=== PATIENT | female | born 1975 | race Hispanic/Latino ===

== ENCOUNTER 2018-07-15 13:37 | Emergency (ER) | payer OTHER ==
[2018-07-15] MEDS ORDERED: MORPHINE 4 MG/ML SYR ONE (14:20)
[2018-07-15] MEDS ORDERED: ONDANSETRON 4 MG/2 ML VIAL ONE (14:20)
[2018-07-15] MEDS ORDERED: NA CHLORIDE 0.9% 1,000 ML ONE (14:20)
[2018-07-15 14:30] LABS: Absolute Lymphocytes (CBC) 1.7 K/uL (0.7-4.9); Absolute Monocytes 0.6 K/uL (0.1-1.3); Absolute Neutrophil 7.3 K/uL (1.8-8.0); Basophils % 0.6 % (0-1.3); Eosinophils % 1.2 % (0-4.4); Hematocrit 40.8 % (36.0-45.0); Lymphocytes % 17.9 % (15.3-44.8); MCH 28.6 pg (27.0-35.0); MCV 83.8 fL (80-100); MPV 8.7 fL (7.6-11.3); RBC Red Blood Cell Count 4.86 M/uL (3.86-4.86)
[2018-07-15 14:33] LABS: Urine Blood TRACE (NEG); Urine Glucose NEGATIVE (NEG); Urine Protein NEGATIVE (NEG); Urine Specific Gravity 1.025 (1.005-1.030); Urine pH 5.5 (5.0-7.0)
[2018-07-15 15:05] LABS: ALT/SGPT 99 U/L (12-78); AST/SGOT 52 U/L (15-37); Albumin 3.8 g/dL (3.4-5.0); Alkaline Phosphatase 143 U/L (45-117); BUN Blood Urea Nitrogen 26 mg/dL (7-18); Bicarbonate 28 mmol/L (21-32); Bilirubin Direct 0.2 mg/dL (0-0.2); Bilirubin Total 0.5 mg/dL (0.2-1.0); Glucose Level 92 mg/dL (74-106); Lipase 222 U/L (73-393); Potassium 3.4 mmol/L (3.5-5.1); Protein, Total 8.6 g/dL (6.4-8.2); Sodium Level 137 mmol/L (136-145); Troponin (Emerg Dept Use Only) < 0.02 ng/mL (0.0-0.045)
--- NOTE | 2018-07-15 15:13 | EKG ---
Test Date: 2018-07-15 Test Time: 14:12:11 Family Services Specialist: NEO MEASUREMENT RESULTS: Intervals: Rate: 62 OR: 172 QRSD: 100 QT: 516 QTc: 523 [place]: P: 25 OR: 172 QRS: 12 T: 20 INTERPRETIVE STATEMENTS: Normal sinus rhythm with sinus arrhythmia Increased R/S ratio in V1, consider early transition or posterior infarct Prolonged QT Abnormal ECG Compared to ECG 03/25/2017 13:36:30 Myocardial infarct finding now present Electronically Signed On 07-15-18 15:12:50 CDT by Florentino Houston
--- NOTE | 2018-07-15 16:01 | RAD REPORT ---
EXAM DESCRIPTION: CT - Abdomen Pelvis W Contrast - 07/15/2018 3:53 pm CLINICAL HISTORY: Abdominal pain/epigastric pain COMPARISON: December 2016 TECHNIQUE: Computed axial tomography of the abdomen pelvis was obtained. 100 cc Isovue-300 was admin istered intravenously. Oral contrast was not requested which limits evaluation of bowel. All CT scans are performed using dose optimization technique as appropriate and may include automated exposure control or mA/KV adjustment according to patient size. FINDINGS: A gastric band is in place. The gallbladder has been removed The liver, spleen, pancreas, adrenal and kidneys appear unremarkable. There is no evidence of diverticulitis. The appendix is normal. A hysterectomy has been performed. A small umbilical hernia present. IMPRESSION: No acute abnormality is displayed.
--- NOTE | 2018-07-15 16:23 | ER ---
Nurse's Notes [facility] Name: Vanessa Gonzalez Age: 42 yrs Sex: Female : 1975 Arrival Date: 07/15/2018 Time: 13:41 Bed 16 Private MD: Diagnosis: Upper abdominal pain, unspecified Presentation: 07/15 13:41 Presenting complaint: Patient states: i have this pain in my abd the day before hj yesterday, (epigastric area), tender to touch on my L upper abd; i feels like abd is bloated; reports nausea, denies vomiting; reports light headedness; denies fever and diarrhea;. Transition of care: patient was not received from another setting of care. Onset of symptoms was July 14, 2018. Risk Assessment: Do you want to hurt yourself or someone else? Patient reports no desire to harm self or others. Initial Sepsis Screen: Does the patient meet any 2 criteria? No. Patient's initial sepsis screen is negative. Does the patient have a suspected source of infection? No. Patient's initial sepsis screen is negative. Care prior to arrival: None. 13:41 Method Of Arrival: Ambulatory 13:41 Acuity: ANDREW 3 hj Triage Assessment: 13:46 General: Appears in no apparent distress. uncomfortable, Behavior is calm, cooperative, hj appropriate for age. Pain: Complains of pain in abdomen Pain currently is 8 out of 10 on a pain scale. GI: Reports upper abdominal pain, nausea. 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 - Social history:: Smoking status: Patient/guardian denies using tobacco, Patient/guardian denies using alcohol. - Ebola Screening: : Patient negative for fever greater than or equal to 101.5 degrees Fahrenheit, and additional compatible Ebola Virus Disease symptoms Patient denies exposure to infectious person Patient denies travel to an Ebola-affected area in the 21 days before illness onset. Screenin:46 Abuse screen: Denies threats or abuse. Denies injuries from another. Nutritional hj screening: No deficits noted. Tuberculosis screening: No symptoms or risk factors identified. Fall Risk None identified. Assessment: 13:47 GI: Bowel sounds present X 4 quads. Abd is soft Abdomen is tender to palpation. hj 13:50 General: Appears in no apparent distress. comfortable, obese, Behavior is cooperative, bp appropriate for age, anxious. Pain: Complains of pain in abdomen. Neuro: Level of Consciousness is awake, alert, obeys commands, Oriented to person, place, time, situation, Appropriate for age. Cardiovascular: No deficits noted. Respiratory: Airway is patent Respiratory effort is even, unlabored, Respiratory pattern is regular, symmetrical. GI: Abdomen is obese, Bowel sounds present X 4 quads. Abd is soft X 4 quads Abdomen is tender to palpation X 4 quads. : No signs and/or symptoms were reported regarding the genitourinary system. EENT: No deficits noted. Derm: No deficits noted. Musculoskeletal: Circulation, motion, and sensation intact. Range of motion: intact in all extremities. 14:15 Reassessment: PT TO U/S WITH QUALITY ASSURANCE SUPERVISOR CHASSIS. bp 15:42 Reassessment: PT TO CT WITH QUALITY ASSURANCE SUPERVISOR CHASSIS. bp 16:01 Reassessment: PT RETURNED FROM CT. bp 16:42 Reassessment: PT D/C HOME AMBULATORY WITH FAMILY, DX WITH UNSPECIFIED ABDOMINAL PAIN. bp Vital Signs: 13:47 BP 125 / 85; Pulse 75; Resp 18; Temp 97.7(TE); Pulse Ox 98% on R/A; Weight 101.15 kg; Height 5 ft. 2 in. (157.48 cm); Pain 8/10; 15:16 BP 124 / 79; Pulse 60; Resp 17; Pulse Ox 99% on R/A; mh5 15:42 BP 124 / 75; Pulse 63; Resp 14; Pulse Ox 100% ; bp 16:04 BP 125 / 82; Pulse 55; Resp 14; Pulse Ox 100% ; bp 13:47 Body Mass Index 40.79 (101.15 kg, 157.48 cm) hj ED Course: 13:41 Patient arrived in ED. hj 13:43 Triage completed. hj 13:47 Arm band placed on left wrist. hj 13:47 Patient has correct armband on for positive identification. Placed in gown. Bed in low hj position. Call light in reach. Side rails up X 1. 13:48 Lizzette Parry FNP-C is [facility]. kb 13:48 Eliot Hair MD is Attending Physician. kb 13:50 Chris Jones, MARIA R is Primary Nurse. bp 14:00 Inserted saline lock: 20 gauge in left antecubital area, using aseptic technique. Blood bp collected. 14:21 Urine collected: clean catch specimen, clear. 5 14:22 Urine --Ancillary (enter results) Sent. mh5 14:22 Urine Dipstick--Ancillary (enter results) Sent. 5 14:24 EKG done, by scada technician. reviewed by Lizzette SAWANT. sm3 15:53 CT Abd/Pelvis - W/Contrast In Process Unspecified. EDMS 16:43 No provider procedures requiring assistance completed. Patient did not have IV access bp during this emergency room visit. Administered Medications: 14:18 Drug: NS 0.9% 1000 ml Route: IV; Rate: 1000 ml; Site: left antecubital; bp 16:46 Follow up: IV Status: Completed infusion; IV Intake: 1000ml bp 14:19 Drug: Zofran 4 mg Route: IVP; Site: left antecubital; bp 15:41 Follow up: Response: Nausea is decreased bp 14:19 Drug: morphine 4 mg Route: IVP; Site: left antecubital; bp 15:41 Follow up: Response: No adverse reaction; Pain is decreased bp 16:30 Drug: Bentyl 20 mg Route: PO; bp 16:41 Follow up: Response: Medication administered at discharge. bp 16:30 Drug: ProTONIX 40 mg Route: IVP; Site: left antecubital; bp 16:42 Follow up: Response: Medication administered at discharge. bp Intake: 16:46 IV: 1000ml; Total: 1000ml. bp Outcome: 16:22 Discharge ordered by . kb 16:44 Discharged to home ambulatory, with family. bp 16:44 Condition: stable 16:44 Discharge instructions given to patient, Instructed on discharge instructions, follow up and referral plans. medication usage, Demonstrated understanding of instructions, follow-up care, medications, Prescriptions given X 2. 16:57 Patient left the ED. bp Signatures: Dispatcher [employer] EDMS Lizzette Parry, SAVANA GRIFFITHSP-Kyler Beasley, RN RN Halima Abdul 5 Chris Jones, MARIA R RN Kaitlin Fish 3 Corrections: (The following items were deleted from the chart) 13:50 13:47 Pulse 75bpm; Resp 18bpm; Pulse Ox 98% RA; Temp 97.7F Temporal; 101.15 kg; Height hj 5 ft. 2 in.; BMI: 40.7; Pain 8/10; hj
--- NOTE | 2018-07-15 16:23 | EDPHYS ---
Physician Documentation [facility] Name: Vanessa Gonzalez Age: 42 yrs Sex: Female : 1975 Arrival Date: 07/15/2018 Time: 13:41 Bed 16 Private MD: ED Physician Eliot Hair HPI: 07/15 14:25 This 42 yrs old Female presents to ER via Ambulatory with complaints of kb Abdominal Pain, Nausea. 14:25 The patient presents with abdominal pain in the epigastric area, in the upper abdomen. kb Onset: The symptoms/episode began/occurred 2 day(s) ago. The symptoms do not radiate. Associated signs and symptoms: Pertinent positives: nausea, Pertinent negatives: fever, vomiting. The symptoms are described as constant. Modifying factors: The symptoms are alleviated by nothing, the symptoms are aggravated by pressure. Severity of pain: At its worst the pain was moderate in the emergency department the pain is unchanged. The patient has experienced similar episodes in the past. The patient has been recently seen by a physician: Dr. Macias in the office, with similar presenting complaints, MRI and labs ordered. Not done yet. 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 - Social history:: Smoking status: Patient/guardian denies using tobacco, Patient/guardian denies using alcohol. - Ebola Screening: : Patient negative for fever greater than or equal to 101.5 degrees Fahrenheit, and additional compatible Ebola Virus Disease symptoms Patient denies exposure to infectious person Patient denies travel to an Ebola-affected area in the 21 days before illness onset. ROS: 14:25 Constitutional: Negative for fever, chills, and weight loss, Neck: Negative for injury, kb pain, and swelling, Cardiovascular: Negative for chest pain, palpitations, and edema, Respiratory: Negative for shortness of breath, cough, wheezing, and pleuritic chest pain, Back: Negative for injury and pain, : Negative for injury, bleeding, discharge, and swelling, MS/Extremity: Negative for injury and deformity, Skin: Negative for injury, rash, and discoloration, Neuro: Negative for headache, weakness, numbness, tingling, and seizure. 14:25 Abdomen/GI: Positive for abdominal pain, nausea. Exam: 14:24 Constitutional: This is a well developed, well nourished patient who is awake, alert, kb and in no acute distress. Head/Face: Normocephalic, atraumatic. Chest/axilla: Normal chest wall appearance and motion. Nontender with no deformity. No lesions are appreciated. Cardiovascular: Regular rate and rhythm with a normal S1 and S2. No gallops, murmurs, or rubs. Normal PMI, no JVD. No pulse deficits. Respiratory: Lungs have equal breath sounds bilaterally, clear to auscultation and percussion. No rales, rhonchi or wheezes noted. No increased work of breathing, no retractions or nasal flaring. Skin: Warm, dry with normal turgor. Normal color with no rashes, no lesions, and no evidence of cellulitis. MS/ Extremity: Pulses equal, no cyanosis. Neurovascular intact. Full, normal range of motion. Neuro: Awake and alert, GCS 15, oriented to person, place, time, and situation. Cranial nerves II-XII grossly intact. Motor strength 5/5 in all extremities. Sensory grossly intact. Cerebellar exam normal. Normal gait. 14:24 Abdomen/GI: Inspection: abdomen appears normal, Bowel sounds: normal, in all quadrants, Palpation: soft, in all quadrants, nontender, in the right lower quadrant and left lower quadrant, moderate abdominal tenderness, in the right upper quadrant and left upper quadrant. Vital Signs: 13:47 BP 125 / 85; Pulse 75; Resp 18; Temp 97.7(TE); Pulse Ox 98% on R/A; Weight 101.15 kg; hj Height 5 ft. 2 in. (157.48 cm); Pain 8/10; 15:16 BP 124 / 79; Pulse 60; Resp 17; Pulse Ox 99% on R/A; mh5 15:42 BP 124 / 75; Pulse 63; Resp 14; Pulse Ox 100% ; bp 16:04 BP 125 / 82; Pulse 55; Resp 14; Pulse Ox 100% ; bp 13:47 Body Mass Index 40.79 (101.15 kg, 157.48 cm) hj MDM: 13:50 Patient medically screened. kb 14:24 Data reviewed: vital signs, nurses notes. Data interpreted: Pulse oximetry: on room air kb is 98 %. Interpretation: normal. 16:22 Counseling: I had a detailed discussion with the patient and/or guardian regarding: the kb historical points, exam findings, and any diagnostic results supporting the discharge/admit diagnosis, lab results, radiology results, the need for outpatient follow up, a court monitor, to return to the emergency department if symptoms worsen or persist or if there are any questions or concerns that arise at home. 07/15 14:03 Order name: Basic Metabolic Panel; Complete Time: 15:05 kb 07/15 14:03 Order name: CBC with Diff; Complete Time: 14:32 kb 07/15 14:03 Order name: Hepatic Function; Complete Time: 15:05 kb 07/15 14:03 Order name: Lipase; Complete Time: 15:05 kb 07/15 14:03 Order name: Troponin (emerg Dept Use Only); Complete Time: 15:05 kb 07/15 14:21 Order name: Urine Dipstick--Ancillary (enter results); Complete Time: 14:36 bd 07/15 14:21 Order name: Urine --Ancillary (enter results); Complete Time: 14:36 bd 07/15 15:31 Order name: CT Abd/Pelvis - W/Contrast; Complete Time: 16:03 kb 07/15 14:03 Order name: IV Saline Lock; Complete Time: 14:10 kb 07/15 14:03 Order name: Labs collected and sent; Complete Time: 14:10 kb 07/15 14:03 Order name: EKG; Complete Time: 14:03 kb 07/15 14:03 Order name: EKG - Nurse/Tech; Complete Time: 14:09 kb Administered Medications: 14:18 Drug: NS 0.9% 1000 ml Route: IV; Rate: 1000 ml; Site: left antecubital; bp 16:46 Follow up: IV Status: Completed infusion; IV Intake: 1000ml bp 14:19 Drug: Zofran 4 mg Route: IVP; Site: left antecubital; bp 15:41 Follow up: Response: Nausea is decreased bp 14:19 Drug: morphine 4 mg Route: IVP; Site: left antecubital; bp 15:41 Follow up: Response: No adverse reaction; Pain is decreased bp 16:30 Drug: Bentyl 20 mg Route: PO; bp 16:41 Follow up: Response: Medication administered at discharge. bp 16:30 Drug: ProTONIX 40 mg Route: IVP; Site: left antecubital; bp 16:42 Follow up: Response: Medication administered at discharge. bp Disposition: 07/16 07:11 Co-signature as Attending Physician, Eliot Hair MD I agree with the [facility] of care. Disposition: 07/15/18 16:22 Discharged to Home. Impression: Upper abdominal pain, unspecified. - Condition is Stable. - Discharge Instructions: Abdominal Pain, Adult, [id number]. - Prescriptions for Bentyl 20 mg Oral Tablet - take 1 tablet by ORAL route every 6 hours As needed; 20 tablet. Zofran 4 mg Oral Tablet - take 1 tablet by ORAL route every 6 hours As needed; 20 tablet. - Medication Reconciliation Form, Thank You Letter, Antibiotic Education, Prescription Opioid Use form. - Follow up: Emergency Department; When: As needed; Reason: Worsening of condition. Follow up: Private Physician; When: 2 - 3 days; Reason: Recheck today's complaints, Continuance of care, Re-evaluation by your physician. Signatures: Dispatcher [employer] [facility] Lizzette Parry, MUSICAL ENGINEER-C MUSICAL ENGINEER-Eliot Chavira MD MD cha Joaquin, Henry, RN RN Chris Castañeda, RN RN bp Corrections: (The following items were deleted from the chart) 07/15 14:25 14:25 Abdomen/GI: Positive for abdominal pain, kb kb 14:37 14:03 Abdomen Limited+US.RAD.BRZ ordered. [facility] 16:57 16:22 07/15/2018 16:22 Discharged to Home. Impression: Upper abdominal pain, bp unspecified. Condition is Stable. Forms are Medication Reconciliation Form, Thank You Letter, Antibiotic Education, Prescription Opioid Use. Follow up: Emergency Department; When: As needed; Reason: Worsening of condition. Follow up: Private Physician; When: 2 - 3 days; Reason: Recheck today's complaints, Continuance of care, Re-evaluation by your physician. kb
[2018-07-15] MEDS ORDERED: DICYCLOMINE HCL 10 MG CAP ONE (16:37)
[2018-07-15] MEDS ORDERED: PANTOPRAZOLE 40 MG INJ ONE (16:37)
== END 2018-07-15 16:57 | disposition home or self-care (01) ==
LOC: ER 13:37
DX: R10.10 Upper abdominal pain, unspecified (principal); I10 Essential (primary) hypertension; E78.00 Pure hypercholesterolemia, unspecified; F32.9 Major depressive disorder, single episode, unspecified; F41.9 Anxiety disorder, unspecified; Z88.8 Allergy status to other drugs, medicaments and biological substances
CPT/HCPCS: 36415; 74177; 80048; 80076; 81003; 81025; 83690; 84484; 85025; 93005; C9113; J2405; J7030; Q9967

== ENCOUNTER 2018-08-22 22:30 | Observation (INO) | payer OTHER ==
--- NOTE | 2018-08-22 23:37 | EDPHYS ---
Physician Documentation [facility] Name: Vanessa Gonzalez Age: 42 yrs Sex: Female : 1975 Arrival Date: 08/22/2018 Time: 22:34 Bed 23 Private MD: ED Physician Eliot Hair HPI: 08/22 23:33 This 42 yrs old Female presents to ER via Ambulatory with complaints of Chest madyson Pain. 23:33 The patient or guardian reports chest pain that is located primarily in the substernal madyson area. Onset: today. The pain does not radiate. Associated signs and symptoms: Pertinent positives: shortness of breath. Modifying factors: The symptoms are alleviated by nothing. the symptoms are aggravated by deep breath, movement. The patient has not experienced similar symptoms in the past. 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 - Social history:: Smoking status: Patient/guardian denies using tobacco, Patient/guardian denies using alcohol. - Ebola Screening: : No symptoms or risks identified at this time. - Family history:: not pertinent. ROS: 23:33 Constitutional: Negative for fever, chills, and weight loss, Eyes: Negative for injury, madyson pain, redness, and discharge, ENT: Negative for injury, pain, and discharge, Neck: Negative for injury, pain, and swelling, Respiratory: Negative for shortness of breath, cough, wheezing, and pleuritic chest pain, Abdomen/GI: Negative for abdominal pain, nausea, vomiting, diarrhea, and constipation, Back: Negative for injury and pain, : Negative for injury, bleeding, discharge, and swelling, MS/Extremity: Negative for injury and deformity, Skin: Negative for injury, rash, and discoloration, Neuro: Negative for headache, weakness, numbness, tingling, and seizure, Psych: Negative for depression, anxiety, suicide ideation, homicidal ideation, and hallucinations, Allergy/Immunology: Negative for hives, rash, and allergies, Endocrine: Negative for neck swelling, polydipsia, polyuria, polyphagia, and marked weight changes, Hematologic/Lymphatic: Negative for swollen nodes, abnormal bleeding, and unusual bruising. 23:33 Cardiovascular: Positive for chest pain, palpitations, Negative for edema, orthopnea, palpitations, paroxysmal nocturnal dyspnea. Exam: 23:33 Constitutional: This is a well developed, well nourished patient who is awake, alert, madyson and in no acute distress. Head/Face: Normocephalic, atraumatic. Eyes: Pupils equal round and reactive to light, extra-ocular motions intact. Lids and lashes normal. Conjunctiva and sclera are non-icteric and not injected. Cornea within normal limits. Periorbital areas with no swelling, redness, or edema. ENT: Nares patent. No nasal discharge, no septal abnormalities noted. Tympanic membranes are normal and external auditory canals are clear. Oropharynx with no redness, swelling, or masses, exudates, or evidence of obstruction, uvula midline. Mucous membranes moist. Neck: Trachea midline, no thyromegaly or masses palpated, and no cervical lymphadenopathy. Supple, full range of motion without nuchal rigidity, or vertebral point tenderness. No Meningismus. Chest/axilla: Normal chest wall appearance and motion. Nontender with no deformity. No lesions are appreciated. Cardiovascular: Regular rate and rhythm with a normal S1 and S2. No gallops, murmurs, or rubs. Normal PMI, no JVD. No pulse deficits. Respiratory: Lungs have equal breath sounds bilaterally, clear to auscultation and percussion. No rales, rhonchi or wheezes noted. No increased work of breathing, no retractions or nasal flaring. Abdomen/GI: Soft, non-tender, with normal bowel sounds. No distension or tympany. No guarding or rebound. No evidence of tenderness throughout. Back: No spinal tenderness. No costovertebral tenderness. Full range of motion. Skin: Warm, dry with normal turgor. Normal color with no rashes, no lesions, and no evidence of cellulitis. MS/ Extremity: Pulses equal, no cyanosis. Neurovascular intact. Full, normal range of motion. Neuro: Awake and alert, GCS 15, oriented to person, place, time, and situation. Cranial nerves II-XII grossly intact. Motor strength 5/5 in all extremities. Sensory grossly intact. Cerebellar exam normal. Normal gait. Psych: Awake, alert, with orientation to person, place and time. Behavior, mood, and affect are within normal limits. Vital Signs: 22:49 BP 177 / 94; Pulse 91; Resp 16 S; Temp 97.9(O); Pulse Ox 100% on R/A; Weight 98.43 kg bb (R); Height 5 ft. 2 in. (157.48 cm) (R); Pain 5/10; 23:11 BP 133 / 90; Pulse 79; Resp 18; Pulse Ox 99% on R/A; tl3 08/23 00:03 BP 122 / 78; Pulse 78; Resp 20; Pulse Ox 100% ; tl3 00:28 BP 123 / 75; Pulse 46; Resp 18; Pulse Ox 99% on R/A; tl3 00:30 Pulse 37; Resp 20; Pulse Ox 100% on 10% Non-rebreather mask; tl3 00:35 Pulse 52; Resp 18; Pulse Ox 100% on 3 lpm NC; tl3 01:12 BP 114 / 60; Pulse 59; Resp 18; Temp 97.9; Pulse Ox 100% on R/A; Pain 0/10; mg2 1110 22:49 Body Mass Index 39.69 (98.43 kg, 157.48 cm) MDM: 08/22 22:54 Patient medically screened. [facility] 23:35 Data reviewed: vital signs, nurses notes, lab test result(s), EKG, radiologic studies, madyson plain films. 08/22 23:15 Order name: Basic Metabolic Panel; Complete Time: : 3 08/22 23:15 Order name: CBC with Diff; Complete Time: 23:57 3 08/22 23:15 Order name: LFT's; Complete Time: : 3 08/22 23:15 Order name: Magnesium; Complete Time: : 3 08/22 23:15 Order name: NT PRO-BNP; Complete Time: : [facility] 08/22 23:15 Order name: PT-INR; Complete Time: 01:26 [facility] 08/22 23:15 Order name: Troponin (emerg Dept Use Only); Complete Time: 01:26 [facility] 08/22 23:32 Order name: Lipase [facility] 08/22 23:32 Order name: Urine Culture [facility] 08/22 23:32 Order name: D-Dimer [facility] 08/22 23:34 Order name: Urine Dipstick--Ancillary (enter results); Complete Time: 01:26 [place] 08/22 23:34 Order name: Urine --Ancillary (enter results); Complete Time: 01:26 [place] 08/23 00:08 Order name: Lipid Profile [facility] 08/23 00:08 Order name: Lipid Profile [facility] 08/22 23:15 Order name: XRAY Chest (1 view) [facility] 08/22 23:15 Order name: EKG; Complete Time: 23:16 [facility] 08/22 23:15 Order name: Cardiac monitoring; Complete Time: 23:16 [facility] 08/22 23:42 Order name: CONS Physician Consult [facility] 08/22 23:42 Order name: Echo with Doppler [facility] 08/23 00:08 Order name: Heart Healthy [facility] 08/23 00:08 Order name: Troponin I [facility] 08/23 00:08 Order name: Troponin I [facility] 08/23 00:08 Order name: Troponin I [facility] 08/23 00:36 Order name: Lipase; Complete Time: 01:26 [facility] 08/23 00:59 Order name: D-Dimer; Complete Time: 01:26 [facility] 08/22 23:15 Order name: EKG - Nurse/Tech; Complete Time: 23:15 [facility] 08/22 23:15 Order name: IV Saline Lock; Complete Time: 23:15 [facility] 08/22 23:15 Order name: Labs collected and sent; Complete Time: 23:16 [facility] 08/22 23:15 Order name: O2 Per Protocol; Complete Time: 23:16 [facility] 08/22 23:15 Order name: O2 Sat Monitoring; Complete Time: 23:16 [facility] 08/22 23:32 Order name: Urine Dipstick-Ancillary (obtain specimen); Complete Time: 23:52 [facility] Administered Medications: 23:59 Not Given (Patient Refused): Zofran 4 mg IVP once; over 2 minutes tl3 08/23 00:00 Drug: Aspirin Chewable Tablet 162 mg Route: PO; tl3 00:09 Follow up: Response: No adverse reaction tl3 00:00 Not Given (Patient Refused): Pepcid 20 mg IVP once tl3 00:00 Drug: morphine 2 mg Route: IVP; Infused Over: 3 mins; Site: left forearm; tl3 01:00 Follow up: Response: No adverse reaction mg2 01:01 Drug: Lovenox 1 mg/kg Route: Sub-Q; Site: right lower abdomen; mg2 01:07 Follow up: Response: No adverse reaction tl3 Disposition: 08/22/18 23:37 Hospitalization ordered by Jazmine Dumas for Observation. Preliminary diagnosis are Chest pain, unspecified, Essential (primary) hypertension. - Bed requested for Telemetry/MedSurg (observation). - Status is Observation. mg2 - Condition is Fair. - Problem is new. - Symptoms have improved. UTI on Admission? No Signatures: Dispatcher [employer] EDMI Esha Carr RN RN mw Anderson, Corey, MD MD cha Ballard, Brenda, RN RN Monica Montana RN RN tl3 Colin Aldridge RN RN mg2 Corrections: (The following items were deleted from the chart) 08/22 23:40 23:37 Hospitalization Ordered by Jazmine Dumas MD for Observation. Preliminary diagnosis is Chest pain, unspecified; Essential (primary) hypertension. Bed requested for Telemetry/MedSurg (observation). Status is Observation. Condition is Fair. Problem is new. Symptoms have improved. UTI on Admission? No. madyson 08/23 01:46 08/22 23:40 08/22/2018 23:37 Hospitalization Ordered by Jazmine Dumas MD for mg2 Observation. Preliminary diagnosis is Chest pain, unspecified; Essential (primary) hypertension. Bed requested for Telemetry/MedSurg (observation). Status is Observation. Condition is Fair. Problem is new. Symptoms have improved. UTI on Admission? No. [place]
--- NOTE | 2018-08-22 23:37 | ER ---
Nurse's Notes [facility] Name: Vanessa Gonzalez Age: 42 yrs Sex: Female : 1975 Arrival Date: 08/22/2018 Time: 22:34 Bed 23 Private MD: Diagnosis: Chest pain, unspecified;Essential (primary) hypertension Presentation: 08/22 22:43 Presenting complaint: Patient states: she is having chest pain and feeling "weird and bb tingly" pt has hx of prolonged Q-T syndrome and has had similar symptoms in the past but it has been a long time ago. pt has nausea but thinks it is because her throat is itchy, painful, pt denies SOB but states she is urinating frequently today but no pain with urination. Transition of care: patient was not received from another setting of care. Onset of symptoms was August 22, 2018. Risk Assessment: Do you want to hurt yourself or someone else? Patient reports no desire to harm self or others. Initial Sepsis Screen: Does the patient meet any 2 criteria? No. Patient's initial sepsis screen is negative. Does the patient have a suspected source of infection? No. Patient's initial sepsis screen is negative. Care prior to arrival: None. 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 - Social history:: Smoking status: Patient/guardian denies using tobacco, Patient/guardian denies using alcohol. - Ebola Screening: : No symptoms or risks identified at this time. - Family history:: not pertinent. Screenin:11 Abuse screen: Denies threats or abuse. Nutritional screening: No deficits noted. tl3 Tuberculosis screening: No symptoms or risk factors identified. Fall Risk None identified. Assessment: 23:11 General: Appears distressed, uncomfortable, well groomed, well developed, well tl3 nourished, Behavior is calm, cooperative, appropriate for age, quiet. Pain: Complains of pain in chest Pain does not radiate. Pain began 3 hours ago. Neuro: Level of Consciousness is awake, alert, obeys commands, Oriented to person, place, time, situation, Appropriate for age. Cardiovascular: Patient's skin is warm and dry. Rhythm is regular. Respiratory: Reports cough that is Airway is patent Respiratory effort is even, unlabored, Respiratory pattern is regular, symmetrical. GI: No signs and/or symptoms were reported involving the gastrointestinal system. : No signs and/or symptoms were reported regarding the genitourinary system. EENT: Reports pain in sore throat with cough. 08/23 00:03 Reassessment: No changes from previously documented assessment. Patient and/or family tl3 updated on plan of care and expected duration. Pain level reassessed. Patient is alert, oriented x 3, equal unlabored respirations, skin warm/dry/pink. warm blankets brought in for pt and family, no other needs at this time. 00:28 Reassessment: pt family came out of room to say that pt was feeling dizzy, upon tl3 entering room pts HR dropped down to 37, Oxygen applied per non rebreather mask, HR increased to upper 40's, lower 50's, NS started at 125 ml/hr, Dr Hair called to room and second EKG completed that showed sinus bradycardia. Vital Signs: 08/22 22:49 BP 177 / 94; Pulse 91; Resp 16 S; Temp 97.9(O); Pulse Ox 100% on R/A; Weight 98.43 kg bb (R); Height 5 ft. 2 in. (157.48 cm) (R); Pain /; 23:11 BP 133 / 90; Pulse 79; Resp 18; Pulse Ox 99% on R/A; tl3 08/23 00:03 BP 122 / 78; Pulse 78; Resp 20; Pulse Ox 100% ; tl3 00:28 BP 123 / 75; Pulse 46; Resp 18; Pulse Ox 99% on R/A; tl3 00:30 Pulse 37; Resp 20; Pulse Ox 100% on 10% Non-rebreather mask; tl3 00:35 Pulse 52; Resp 18; Pulse Ox 100% on 3 lpm NC; tl3 01:12 BP 114 / 60; Pulse 59; Resp 18; Temp 97.9; Pulse Ox 100% on R/A; Pain 0/10; mg2 08/22 22:49 Body Mass Index 39.69 (98.43 kg, 157.48 cm) ED Course: 08/22 22:34 Patient arrived in ED. ag3 22:47 Triage completed. bb 22:49 Monica Whatley, RN is Primary Nurse. tl3 22:49 Arm band placed on Patient placed in an exam room, on a stretcher, on pulse oximetry. bb Family accompanied patient. 22:54 Eliot Hair MD is Attending Physician. [facility] 23:11 Patient has correct armband on for positive identification. color television console monitor on. Pulse tl3 ox on. NIBP on. Door closed. Warm blanket given. 23:11 No provider procedures requiring assistance completed. Inserted saline lock: 22 gauge tl3 in left forearm, using aseptic technique. Patient maintains SpO2 saturation greater than 95% on room air. 23:36 X-ray completed. Portable x-ray completed in exam room. Patient tolerated procedure sg4 well. 23:36 Jazmine Dumas MD is Hospitalizing Provider. [facility] 23:37 XRAY Chest (1 view) In Process Unspecified. EDMS 08/23 01:10 Patient admitted, IV remains in place. mg2 Administered Medications: 08/22 23:59 Not Given (Patient Refused): Zofran 4 mg IVP once; over 2 minutes tl3 08/23 00:00 Drug: Aspirin Chewable Tablet 162 mg Route: PO; tl3 00:09 Follow up: Response: No adverse reaction tl3 00:00 Not Given (Patient Refused): Pepcid 20 mg IVP once tl3 00:00 Drug: morphine 2 mg Route: IVP; Infused Over: 3 mins; Site: left forearm; tl3 01:00 Follow up: Response: No adverse reaction mg2 01:01 Drug: Lovenox 1 mg/kg Route: Sub-Q; Site: right lower abdomen; mg2 01:07 Follow up: Response: No adverse reaction tl3 Outcome: 08/22 23:37 Decision to Hospitalize by Provider. madyson 08/23 01:11 Admitted to Tele accompanied by nurse, via stretcher, room 425, with chart, Report mg2 called to MARIA R Wynne Condition: stable Instructed on the need for admit, Demonstrated understanding of instructions. 01:46 Patient left the ED. mg2 Signatures: Dispatcher [employer] Eliot Maravilla MD MD cha Ballard, Brenda, RN RN bb Monica Whatley RN RN tl3 Colin Aldridge RN RN mg2 Gabriella White3 Teetee Collazo sg4 Corrections: (The following items were deleted from the chart) 01:03 00:59 Reassessment: pt family came out of room to say that pt was feeling dizzy, upon tl3 entering room pts HR dropped down to 37, Oxygen applied per non rebreather mask, HR increased to upper 40's, lower 50's, NS started at 125 ml/hr, Dr Hair called to room and second EKG completed that showed sinus bradycardia tl3 01:07 00:03 BP 122 / 78; Pulse 103bpm; Resp 20bpm; Pulse Ox 100%; tl3 tl3
[2018-08-22 23:51] LABS: Absolute Lymphocytes (CBC) 1.9 K/uL (0.7-4.9); Absolute Monocytes 0.7 K/uL (0.1-1.3); Absolute Neutrophil 6.9 K/uL (1.8-8.0); Basophils % 0.4 % (0-1.3); Eosinophils % 1.9 % (0-4.4); Hematocrit 39.7 % (36.0-45.0); Lymphocytes % 19.4 % (15.3-44.8); MCH 28.9 pg (27.0-35.0); MCV 84.1 fL (80-100); MPV 8.9 fL (7.6-11.3); Monocytes % 7.3 % (3.3-12.3); RBC Red Blood Cell Count 4.72 M/uL (3.86-4.86)
[2018-08-22] MEDS ORDERED: ASPIRIN 81 MG CHEWABLE TABLET ONE (23:51)
[2018-08-22] MEDS ORDERED: FAMOTIDINE 20 MG/2 ML VIAL IV ONE (23:51)
[2018-08-22] MEDS ORDERED: ONDANSETRON 4 MG/2 ML VIAL ONE (23:51)
[2018-08-22] MEDS ORDERED: MORPHINE 4 MG/ML SYR ONE (23:51)
[2018-08-23] MEDS ORDERED: ACETAMINOPHEN 500 MG TAB PO PRN
[2018-08-23] MEDS ORDERED: MORPHINE 4 MG/ML SYR IV PRN
[2018-08-23] MEDS ORDERED: ALPRAZOLAM 0.25 MG TABLET PO PRN
[2018-08-23 00:06] LABS: ALT/SGPT 57 U/L (12-78); AST/SGOT 43 U/L (15-37); Albumin 3.9 g/dL (3.4-5.0); Alkaline Phosphatase 133 U/L (45-117); BUN Blood Urea Nitrogen 17 mg/dL (7-18); Bicarbonate 34 mmol/L (21-32); Bilirubin Direct 0.2 mg/dL (0-0.2); Bilirubin Total 0.4 mg/dL (0.2-1.0); Glucose Level 101 mg/dL (74-106); Magnesium 2.2 mg/dL (1.8-2.4); NT PRO-BNP 60 pg/mL (<125); Potassium 3.6 mmol/L (3.5-5.1); Protein, Total 8.2 g/dL (6.4-8.2); Sodium Level 141 mmol/L (136-145); Troponin (Emerg Dept Use Only) < 0.02 ng/mL (0.0-0.045)
[2018-08-23 00:32] LABS: Urine Blood NEGATIVE (NEG); Urine Glucose NEGATIVE (NEG); Urine Protein NEGATIVE (NEG)
[2018-08-23 00:36] LABS: Lipase 206 U/L (73-393)
[2018-08-23] MEDS ORDERED: NA CHLORIDE 0.9% 1,000 ML ONE (00:39)
[2018-08-23] MEDS ORDERED: ENOXAPARIN 100 MG/ML SYR SQ ONE (01:03)
[2018-08-23 02:17] VITALS: BMI 37.5
[2018-08-23 02:26] VITALS: O2SAT 100
--- NOTE | 2018-08-23 08:36 | P.HP ---
Certification for Inpatient Patient admitted to: Observation With expected LOS: <2 Midnights Practitioner: I am a practitioner with admitting privileges, knowledge of patient current condition, hospital course, and medical plan of care. Services: Services provided to patient in accordance with Admission requirements found in Title 42 Section 412.3 of the Code of Federal Regulations Patient History Date of Service: 08/23/18 Reason for admission: Near syncopal event/chest pain History of Present Illness: Patient is a 42-year-old female came into the hospital after a near syncopal event. She recently was diagnose with prolonged QT syndrome. She is following up with an clinical biochemical geneticist at [facility]. She had a event monitor place. She is going to follow-up with her social professionals this week at [facility]. She sees Dr. Self here in [place]. She has been having near syncopal events and there is concern that this is secondary to her prolonged QT syndrome. That is why the event monitor was placed. She will be admitted to the hospital for observation and will monitor her on telemetry. Cardiology Consulted as well. Allergies ketorolac Allergy (Verified 01/02/17 20:57) Hives/Rash, SOB Home Medications: Evolocumab [Repatha Syringe] 1 dose SQ [facility] 08/23/18 Losartan/Hydrochlorothiazide [Losartan-Hctz 100-25 mg Tab] 1 tab PO DAILY - Past Medical/Surgical History Has patient received pneumonia vaccine in the past: No Diabetic: No -: Hypertension -: Hyperlipidemia -: GERD -: Diverticulosis -: Depression with anxiety -: Borderline diabetes -: Obesity -: Fatty liver -: Vitamin-D deficiency -: prolonged qt syndrome -: Hysterectomy-2013 -: 2x [id number] -: Carpal Tunnel-2000 -: Gall bladder-2005 -: Lap Band-2011 Psychosocial/ Personal History: She is . Has 3 children. 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 - Family History Mother Medical History: Hypertension, Diabetes, Other (see notes) Notes: High cholesterol Father Medical History: Hypertension, Diabetes - Social History Smoking Status: Never smoker Alcohol use: No CD- Drugs: No Caffeine use: No Place of Residence: Home Review of Systems 10-point ROS is otherwise unremarkable Physical Examination - Vital Signs Temperature: 97.1 F Blood Pressure: 98/63 Pulse: 65 Respirations: 18 Pulse Ox (%): 100 - Physical Exam General: Alert, In no apparent distress, Oriented x3 HEENT: Atraumatic, PERRLA, Mucous membr. moist/pink, EOMI, Sclerae nonicteric Neck: Supple, 2+ carotid pulse no bruit, No LAD, Without JVD or thyroid abnormality Respiratory: Clear to auscultation bilaterally, Normal air movement Cardiovascular: Regular rate/rhythm, Normal S1 S2, No murmurs Gastrointestinal: Normal bowel sounds, Soft and benign, Non-distended, No tenderness Musculoskeletal: No clubbing, No swelling, No tenderness Integumentary: No rashes Neurological: Normal gait, Normal speech, Normal strength at 5/5 x4 extr, Normal tone, Sensation intact, Cranial nerves 3-12 intact, Normal affect Lymphatics: No axilla or inguinal lymphadenopathy - Studies Laboratory Data (last 24 hrs) 08/22/18 23:32: Lipase Cancelled 08/22/18 23:27: PT 13.0 H, INR 1.10 08/22/18 23:27: WBC 9.7, Hgb 13.6, Hct 39.7, Plt Count 208 08/22/18 23:27: Sodium 141, Potassium 3.6, BUN 17, Creatinine 1.00, Glucose 101 , Magnesium 2.2, Total Bilirubin 0.4, AST 43 H, ALT 57, Alkaline Phosphatase 133 H, Lipase 206 Assessment & Plan - Problems (Diagnosis) (1) Near syncope Current Visit: Yes Status: Acute (2) Prolonged QT syndrome Current Visit: Yes Status: Acute (3) Chest pain, rule out acute myocardial infarction Current Visit: Yes Status: Acute - Plan Plan: 1. Serial troponins and EKG 2. Cardiology consultation 3. Patient has had stress test and echocardiogram which were unremarkable 4. Anti-platelet therapy, anti coagulation, beta-pal, statin, and O2 as needed 5. IV morphine for pain 6. Monitor on telemetry for arrhythmias 7. Possible discharge in 24 hr and follow with Cardiology to discuss results of the event monitor Discharge Plan: Home Plan to discharge in: 24 Hours - Advance Directives Does patient have a Living Will: No Does patient have a Durable POA for Healthcare: No - Code Status/Comfort Care Code Status Assessed: Yes Code Status: Full Code Critical Care: No Time Spent Managing PTS Care (In Minutes): 50
--- NOTE | 2018-08-23 08:42 | RAD REPORT ---
EXAM DESCRIPTION: RAD - Chest Single View - 08/22/2018 11:37 pm CLINICAL HISTORY: Chest pain COMPARISON: March 2017 TECHNIQUE: AP portable chest image was obtained 2333 hours . FINDINGS: Lungs are clear. Heart and vasculature are normal. No measurable pleural effusion and no p neumothorax. No acute bony abnormality seen. No acute aortic findings suspected. IMPRESSION: No acute cardiopulmonary process. No significant change from comparison.
[2018-08-23] MEDS ORDERED: METOPROLOL TAR 50 MG TAB PO SCH (09:00)
[2018-08-23] MEDS ORDERED: ASPIRIN EC 81 MG TAB PO SCH (09:00)
[2018-08-23] MEDS ORDERED: ENOXAPARIN 40 MG/0.4 ML SQ SCH (09:00)
[2018-08-23 12:30] VITALS: BP 141/70; TEMP 97.3
--- NOTE | 2018-08-23 20:03 | CON ---
Date of Consultation: 08/23/[address] Dumas's service on 08/23/2018. I saw the patient on 08/23/2018. History Of Present Illness: Ms. Gonzalez is a 42-year-old woman with history of hypertension, dyslipide marissa, gastroesophageal reflux disease, obesity, status post lap band, anxiety, and depression. Has a history of long QT syndrome. Has seen Dr. Ayala recently, that monitor had been placed. She sees h im again on August 27, 2018. She did not come in with palpitation. Came in with chest pain, sharp , stabbing, continuous for almost a day and a half. Ruled out for an CO. Negative echo. Negative L exiscan in December 2017. Allergies: SHE IS ALLERGIC TO KETORALAC. Medications At Home: Losartan. Review of Systems: Negative. Social History: Negative. Family History: Negative. Physical Examination: General: Examination was unremarkable. Vital signs: Stable. Afebrile. Chest: Reportedly clear. Cardiac: Normal. Extremity: Had no edema. Diagnostic Data: All within normal limits. Impression And Plan: Atypical chest pain, most likely secondary to gastroesophageal reflux disease o r musculoskeletal issue or pleurisy. Ms. Gonzalez has already had an extensive negative workup in December 2017. She does have some risk factors for heart disease including hypertension and dyslipidemia. S he has long QT syndrome along with her son. She is seeing Dr. Ayala on the . We will see if th at showed anything as far as her monitor is concerned the last 3 weeks. I will discuss the case furt her with Dr. Ayala, but as far as I am concerned, she does not need any further cardiac workup at th is point and we will see her as an outpatient. URBANO/JUANITO Voice ID: [id number] Report ID: [id number]
--- NOTE | 2018-08-24 07:06 | EKG ---
Test Date: 2018-08-22 Test Time: 22:44:49 High School Guidance Counselor: JENI MEASUREMENT RESULTS: Intervals: Rate: 84 IL: 166 QRSD: 96 QT: 420 QTc: 496 [place]: P: 29 IL: 166 QRS: 9 T: 43 INTERPRETIVE STATEMENTS: Normal sinus rhythm Nonspecific T wave abnormality Prolonged QT Abnormal ECG Compared to ECG 07/15/2018 14:12:11 T-wave abnormality now present Sinus arrhythmia no longer present Myocardial infarct finding no longer present Electronically Signed On 08-24-18 07:03:34 CENTER MACHINE SET UP OPERATOR by Hill Self
--- NOTE | 2018-08-24 07:21 | EKG ---
Test Date: 2018-08-23 Test Time: 00:39:03 Optical Scientist: JENI MEASUREMENT RESULTS: Intervals: Rate: 48 CA: 166 QRSD: 98 QT: 536 QTc: 478 [place]: P: 30 CA: 166 QRS: 28 T: 38 INTERPRETIVE STATEMENTS: Marked sinus bradycardia Abnormal ECG Compared to ECG 08/22/2018 22:44:49 Sinus rhythm no longer present T-wave abnormality no longer present Prolonged QT interval no longer present Electronically Signed On 08-24-18 07:20:59 [employer] by Florentino Houston
== END 2018-08-23 16:21 | disposition home or self-care (01) ==
LOC: ER 22:30 → ERHOLD 08-23 00:04 → 4TH 08-23 01:13
PROVIDERS: ADMIT Hospitalist; ATTEND Hospitalist
DX: R07.9 Chest pain, unspecified (principal); R55 Syncope and collapse; I45.81 Long QT syndrome; I10 Essential (primary) hypertension; E78.5 Hyperlipidemia, unspecified; K21.9 Gastro-esophageal reflux disease without esophagitis; F41.8 Other specified anxiety disorders; Z98.84 Bariatric surgery status
CPT/HCPCS: 36415; 71045; 80048; 80061; 80076; 81003; 81025; 83690; 83735; 83880; 84484; 85025; 85379; 85610; 87086; 87088; 93005; 96372; 96374; 99285; G0378; J1650; J2405; J7030

== ENCOUNTER 2018-10-23 16:14 | Observation (INO) | payer OTHER ==
--- NOTE | 2018-10-23 16:42 | RAD REPORT ---
EXAM DESCRIPTION: RAD - Chest Single View - 10/23/2018 4:37 pm CLINICAL HISTORY: CHEST PAIN Chest pain. COMPARISON: Chest Pa And Lat (2 Views) dated 10/23/2018; Chest Single View dated 08/22/2018; Chest Si ngle View dated 03/25/2017; Chest Single View dated 01/02/2017 FINDINGS: Portable technique limits examination quality. The lungs are grossly clear. The heart is normal in size. No displaced fractures. IMPRESSION: No acute intrathoracic process suspected.
[2018-10-23 16:45] LABS: Absolute Lymphocytes (CBC) 1.6 K/uL (0.7-4.9); Absolute Monocytes 0.6 K/uL (0.1-1.3); Absolute Neutrophil 6.8 K/uL (1.8-8.0); Basophils % 0.7 % (0-1.3); Eosinophils % 0.8 % (0-4.4); Hematocrit 42.4 % (36.0-45.0); Lymphocytes % 17.5 % (15.3-44.8); MPV 8.7 fL (7.6-11.3); Monocytes % 6.5 % (3.3-12.3); RBC Red Blood Cell Count 5.05 M/uL (3.86-4.86)
[2018-10-23] MEDS ORDERED: NA CHLORIDE 0.9% 1,000 ML ONE (16:55)
[2018-10-23 17:01] LABS: BUN Blood Urea Nitrogen 14 mg/dL (7-18); Bicarbonate 26 mmol/L (21-32); Glucose Level 98 mg/dL (74-106); NT PRO-BNP 50 pg/mL (<125); Potassium 3.4 mmol/L (3.5-5.1); Sodium Level 139 mmol/L (136-145); Troponin (Emerg Dept Use Only) < 0.02 ng/mL (0.0-0.045)
--- NOTE | 2018-10-23 17:47 | RAD REPORT ---
EXAM DESCRIPTION: CT - Chest Abdomen Pelvis W Cont - 10/23/2018 5:33 pm CLINICAL HISTORY: Chest and abdomen pain. abdominal pain;Chest pain COMPARISON: Abdomen Pelvis W Contrast dated 07/15/2018 TECHNIQUE: Approximately 100 mL nonionic IV contrast was administered to the patient. All CT scans are performed using dose optimization technique as appropriate and may include automated exposure control or mA/KV adjustment according to patient size. FINDINGS: The lungs are clear.No pleural or pericardial effusion.No intrathoracic adenopathy.Gastric banding is noted. The liver, spleen, pancreas, adrenal glands and kidneys are within normal limits. Cholecystectomy cli ps. No bowel obstruction, free air, free fluid or abscess. Normal appendix. Sigmoid diverticulosis is pre sent diverticulitis. No pathologic lymphadenopathy in the abdomen or pelvis. Small fat containing umb ilical. No worrisome osseous finding. IMPRESSION: No acute finding is demonstrated. Small fat containing umbilical hernia. Sigmoid diverticulosis without diverticulitis.
--- NOTE | 2018-10-23 17:52 | EDPHYS ---
Physician Documentation [facility] Name: Vanessa Gonzalez Age: 43 yrs Sex: Female : 1975 Arrival Date: 10/23/2018 Time: 16:15 Bed 15 Private MD: Vy Parker ED Physician Christo Remy HPI: 10/23 17:13 This 43 yrs old Female presents to ER via Wheelchair with complaints of Chest gs Pain. 17:13 The patient or guardian reports chest pain that is located primarily in the anterior gs chest wall, left. Onset: 3 hour(s) ago. The pain radiates to Associated signs and symptoms: Pertinent positives: abdominal pain, shortness of breath, Pertinent negatives: cough. The chest pain is described as sharp. Duration: The patient or guardian reports multiple episodes, that wax and wane, with no pattern. Modifying factors: The symptoms are alleviated by nothing. the symptoms are aggravated by nothing. Severity of pain: At its worst the pain was moderate in the emergency department the pain is unchanged. says feel tingly all over, has had diarrhea for 3 days. C4 PLANNER: 16:36 LMP N/A - Hysterectomy tw2 Historical: - Allergies: 16:41 Ketorolac; tw2 16:41 Morphine; tw2 - Home Meds: 16:41 losartan-hydrochlorothiazide 100-25 mg Oral tab 1 tab once daily [Active]; Repatha tw2 Syringe 140 mg/mL subcutaneous syrg 1 mL every 2 wks [Active]; Protonix Oral [Active]; Xanax 0.5 mg Oral tab 1 tab 3 times per day [Active]; amlodipine 2.5 mg tab 1 tab once daily [Active]; nadolol 10 mg oral tab 1 tab once daily [Active]; - PMHx: 16:41 Anxiety; High Cholesterol; Depression; GERD; Hypertension; tw2 - PSHx: 16:41 Lap band; bilateral carpal syndrome; Cholecystectomy; Hysterectomy; ; tw2 - Immunization history:: Adult Immunizations. - Social history:: Smoking status: . - Ebola Screening: : Patient denies travel to an Ebola-affected area in the 21 days before illness onset. ROS: 17:13 All other systems are negative. gs Exam: 17:13 Head/Face: Normocephalic, atraumatic. Eyes: Pupils equal round and reactive to light, gs extra-ocular motions intact. Lids and lashes normal. Conjunctiva and sclera are non-icteric and not injected. Cornea within normal limits. Periorbital areas with no swelling, redness, or edema. ENT: Nares patent. No nasal discharge, no septal abnormalities noted. Tympanic membranes are normal and external auditory canals are clear. Oropharynx with no redness, swelling, or masses, exudates, or evidence of obstruction, uvula midline. Mucous membranes moist. Neck: Trachea midline, no thyromegaly or masses palpated, and no cervical lymphadenopathy. Supple, full range of motion without nuchal rigidity, or vertebral point tenderness. No Meningismus. Chest/axilla: Normal chest wall appearance and motion. Nontender with no deformity. No lesions are appreciated. Cardiovascular: Regular rate and rhythm with a normal S1 and S2. No gallops, murmurs, or rubs. Normal PMI, no JVD. No pulse deficits. Respiratory: Lungs have equal breath sounds bilaterally, clear to auscultation and percussion. No rales, rhonchi or wheezes noted. No increased work of breathing, no retractions or nasal flaring. Abdomen/GI: Soft, non-tender, with normal bowel sounds. No distension or tympany. No guarding or rebound. No evidence of tenderness throughout. Back: No spinal tenderness. No costovertebral tenderness. Full range of motion. Skin: Warm, dry with normal turgor. Normal color with no rashes, no lesions, and no evidence of cellulitis. MS/ Extremity: Pulses equal, no cyanosis. Neurovascular intact. Full, normal range of motion. Neuro: Awake and alert, GCS 15, oriented to person, place, time, and situation. Cranial nerves II-XII grossly intact. Motor strength 5/5 in all extremities. Sensory grossly intact. Cerebellar exam normal. Normal gait. 17:13 Constitutional: The patient appears alert, awake. 17:13 ECG was reviewed by the Attending Physician. Vital Signs: 16:27 BP 174 / 113; Pulse 101; Resp 18; Temp 98.3(TE); Pulse Ox 100% on R/A; Pain 8/10; tw2 16:36 BP 172 / 106; Pulse 83; Resp 18; Pulse Ox 100% on 2 lpm NC; tw2 17:15 BP 157 / 89; Pulse 65; Resp 17; Pulse Ox 100% on 2 lpm NC; tw2 18:22 BP 167 / 96; Pulse 52; Resp 18; Pulse Ox 100% on 2 lpm NC; tw2 19:15 BP 140 / 79; Pulse 59; Resp 17; Pulse Ox 100% on R/A; jb4 MDM: 16:43 Patient medically screened. 17:13 Differential diagnosis: acute myocardial infarction, acute pericarditis, chest wall gs pain, thoracic aortic disection. Data reviewed: vital signs, nurses notes, lab test result(s), EKG, radiologic studies. 10/23 16:23 Order name: Basic Metabolic Panel; Complete Time: 17:06 10/23 16:23 Order name: CBC with Diff; Complete Time: 16:55 10/23 16:23 Order name: NT PRO-BNP; Complete Time: 17:06 10/23 16:23 Order name: Troponin (emerg Dept Use Only); Complete Time: 17:06 10/23 17:45 Order name: Urine Dipstick--Ancillary (enter results) 10/23 18:07 Order name: Lipase 10/23 16:23 Order name: XRAY Chest (1 view); Complete Time: 16:44 10/23 16:23 Order name: EKG; Complete Time: 16:24 10/23 16:23 Order name: Cardiac monitoring; Complete Time: 16:28 10/23 16:23 Order name: EKG - Nurse/Tech; Complete Time: 16:28 10/23 16:23 Order name: IV Saline Lock; Complete Time: 16:45 10/23 16:56 Order name: CT Chest, Abdomen, Pelvis - W/Contrast; Complete Time: 17:50 10/23 18:07 Order name: Hepatic Function 10/23 16:23 Order name: Labs collected and sent; Complete Time: 16:45 10/23 16:23 Order name: O2 Per Protocol; Complete Time: 16:28 10/23 16:23 Order name: O2 Sat Monitoring; Complete Time: 16:28 10/23 16:24 Order name: Urine Test (obtain specimen); Complete Time: 17:42 10/23 16:24 Order name: Urine Dipstick-Ancillary (obtain specimen); Complete Time: 17:42 gs EC:13 Rate is 94 beats/min. Rhythm is regular. SC interval is normal. QRS interval is normal. gs QT interval is prolonged. No ST changes noted. Clinical impression: Abnormal EKG without significant change. No change from previous ECG on August 23, 2018. Interpreted by me. Administered Medications: 16:49 Drug: NS 0.9% 1000 ml Route: IV; Rate: 1 bolus; Site: right antecubital; tw2 18:22 Follow up: Response: No adverse reaction; IV Status: Completed infusion; IV Intake: tw2 1000ml Disposition: 10/23/18 17:51 Hospitalization ordered by Florencio Fang for Observation. Preliminary diagnosis is Chest pain, unspecified. - Bed requested for Telemetry/MedSurg (observation). - Status is Observation. jb4 - Condition is Stable. - Problem is new. - Symptoms have improved. UTI on Admission? No Signatures: Dispatcher [employer] EDNY Neetu Hurley RN RN tw2 Dileep Mcdaniel RN RN jb4 Angeles Hatch RN RN df Christo Remy MD MD Corrections: (The following items were deleted from the chart) 18:56 17:51 Hospitalization Ordered by Florencio Fang DO for Observation. Preliminary df diagnosis is Chest pain, unspecified. Bed requested for Telemetry/MedSurg (observation). Status is Observation. Condition is Stable. Problem is new. Symptoms have improved. UTI on Admission? No. gs 20:07 18:56 10/23/2018 17:51 Hospitalization Ordered by Florencio Fang DO for Observation. jb4 Preliminary diagnosis is Chest pain, unspecified. Bed requested for Telemetry/MedSurg (observation). Status is Observation. Condition is Stable. Problem is new. Symptoms have improved. UTI on Admission? No. df
--- NOTE | 2018-10-23 17:52 | ER ---
Nurse's Notes [facility] Name: Vanessa Gonzalez Age: 43 yrs Sex: Female : 1975 Arrival Date: 10/23/2018 Time: 16:15 Bed 15 Private MD: Vy Parker Diagnosis: Chest pain, unspecified Presentation: 10/23 16:26 Presenting complaint: Patient states: i started having left upper abdominal pain tw2 yesterday and today i started having chest pain at 10 am, i went to Dr. Parker she thought it was muscular, i have a prolonged QT and a slow heart rate and Dr. Worthington wanted to get me a pacemaker. Transition of care: patient was not received from another setting of care. Onset of symptoms was October 23, 2018. Risk Assessment: Do you want to hurt yourself or someone else? Patient reports no desire to harm self or others. Initial Sepsis Screen: Does the patient meet any 2 criteria? No. Patient's initial sepsis screen is negative. Does the patient have a suspected source of infection? No. Patient's initial sepsis screen is negative. Care prior to arrival: None. 16:26 Method Of Arrival: Wheelchair tw2 16:26 Acuity: ANDREW 3 tw2 SHOW HOST OR HOSTESS: 16:36 LMP N/A - Hysterectomy tw2 Historical: - Allergies: 16:41 Ketorolac; tw2 16:41 Morphine; tw2 - Home Meds: 16:41 losartan-hydrochlorothiazide 100-25 mg Oral tab 1 tab once daily [Active]; Repatha tw2 Syringe 140 mg/mL subcutaneous syrg 1 mL every 2 wks [Active]; Protonix Oral [Active]; Xanax 0.5 mg Oral tab 1 tab 3 times per day [Active]; amlodipine 2.5 mg tab 1 tab once daily [Active]; nadolol 10 mg oral tab 1 tab once daily [Active]; - PMHx: 16:41 Anxiety; High Cholesterol; Depression; GERD; Hypertension; tw2 - PSHx: 16:41 Lap band; bilateral carpal syndrome; Cholecystectomy; Hysterectomy; ; tw2 - Immunization history:: Adult Immunizations. - Social history:: Smoking status: . - Ebola Screening: : Patient denies travel to an Ebola-affected area in the 21 days before illness onset. Screenin:01 Abuse screen: Denies threats or abuse. Nutritional screening: No deficits noted. tw2 Tuberculosis screening: No symptoms or risk factors identified. Fall Risk None identified. Assessment: 16:20 General: Appears obese, Behavior is anxious. Pain: Complains of pain in chest and tw2 abdomen Pain does not radiate. Pain began the stomach pain was yesterday but the chest pain started this morning about since 10 am. 16:20 Neuro: Level of Consciousness is awake, alert, obeys commands, Oriented to person, tw2 place, time, situation. Cardiovascular: Reports chest pain, shortness of breath, Heart tones S1 S2 Capillary refill < 3 seconds Patient's skin is warm and dry. Respiratory: Airway is patent Respiratory effort is even, unlabored, Respiratory pattern is regular, symmetrical, Breath sounds are clear bilaterally. GI: Abdomen is flat, Bowel sounds present X 4 quads. Reports upper abdominal pain. : No signs and/or symptoms were reported regarding the genitourinary system. EENT: No signs and/or symptoms were reported regarding the EENT system. Derm: No signs and/or symptoms reported regarding the dermatologic system. Musculoskeletal: Range of motion: intact in all extremities. 16:45 Reassessment: pt reports "i feel like i am going to faint", provider notified, tw2 medicated as ordered. 16:50 Reassessment: Dr. Remy at bedside at this time. tw2 17:43 Reassessment: Patient appears in no apparent distress at this time. Patient and/or tw2 family updated on plan of care and expected duration. Pain level reassessed. Patient is alert, oriented x 3, equal unlabored respirations, skin warm/dry/pink. 17:56 Reassessment: Dr. Remy at bedside at this time. tw2 19:15 Reassessment: Patient appears in no apparent distress at this time. Patient and/or jb4 family updated on plan of care and expected duration. Pain level reassessed. Patient is alert, oriented x 3, equal unlabored respirations, skin warm/dry/pink. Cardiovascular: Patient's skin is warm and dry. Rhythm is sinus rhythm. Vital Signs: 16:27 BP 174 / 113; Pulse 101; Resp 18; Temp 98.3(TE); Pulse Ox 100% on R/A; Pain 8/10; tw2 16:36 BP 172 / 106; Pulse 83; Resp 18; Pulse Ox 100% on 2 lpm NC; tw2 17:15 BP 157 / 89; Pulse 65; Resp 17; Pulse Ox 100% on 2 lpm NC; tw2 18:22 BP 167 / 96; Pulse 52; Resp 18; Pulse Ox 100% on 2 lpm NC; tw2 19:15 BP 140 / 79; Pulse 59; Resp 17; Pulse Ox 100% on R/A; jb4 ED Course: 16:15 Patient arrived in ED. as 16:16 Vy Parker MD is Private Physician. as 16:18 Bed in low position. Call light in reach. Side rails up X2. Adult w/ patient. Cardiac tw2 monitor on. Pulse ox on. NIBP on. Warm blanket given. 16:19 Christo Remy MD is Attending Physician. gs 16:27 Triage completed. tw2 16:29 XRAY Chest (1 view) In Process Unspecified. EDMS 16:31 X-ray completed. Portable x-ray completed in exam room. Patient tolerated procedure ag1 well. 16:35 EKG done, by mechanical system technician. reviewed by Christo Remy MD. sm3 16:36 Neetu Hurley, RN is Primary Nurse. tw2 16:36 Inserted saline lock: 22 gauge in right antecubital area, using aseptic technique. tw2 Blood collected. Patient maintains SpO2 saturation greater than 95% on room air. O2 via pt states "i just feel like i cant get a full breath", pt placed on o2 via nc at 2l for comfort. 17:00 Arm band placed on. tw2 17:[address] jj2 17:33 CT Chest, Abdomen, Pelvis - W/Contrast In Process Unspecified. EDMS 17:51 Florencio Fang DO is Hospitalizing Provider. gs 19:05 Report given to MARIA R Maya. tw2 19:07 Primary Nurse role handed off by Neetu Hurley, MARIA R tw2 19:39 Dileep Mcdaniel, MARIA R is Primary Nurse. jb4 20:06 No provider procedures requiring assistance completed. Patient admitted, IV remains in jb4 place. Administered Medications: 16:49 Drug: NS 0.9% 1000 ml Route: IV; Rate: 1 bolus; Site: right antecubital; tw2 18:22 Follow up: Response: No adverse reaction; IV Status: Completed infusion; IV Intake: tw2 1000ml Intake: 18:22 IV: 1000ml; Total: 1000ml. tw2 Outcome: 17:51 Decision to Hospitalize by Provider. 20:06 Admitted to Med/surg accompanied by tech, via wheelchair, room 428, with oxygen, with jb4 chart, Report called to MARIA R Solis 20:06 Condition: stable 20:06 Discharge instructions given to patient, Instructed on the need for admit, Demonstrated understanding of instructions. 20:07 Patient left the ED. jb4 Signatures: Dispatcher [employer] EDMS Armando Ruiz Amelia as Gallaway, Ashley ag1 Neetu Hurley RN RN tw2 Dileep Mcdaniel RN RN jb4 Christo Remy MD MD Rolando, Kaitlin 3 Corrections: (The following items were deleted from the chart) 17:00 16:20 Pain: Complains of pain in chest and abdomen Pain does not radiate. Pain began tw2 the stomach pain was yesterday but the chest pain started this morning about since 10 am tw2
--- NOTE | 2018-10-23 18:25 | EKG ---
Test Date: 2018-10-23 Test Time: 16:24:16 Business Unit Leader: NEO MEASUREMENT RESULTS: Intervals: Rate: 94 MT: 166 QRSD: 84 QT: 420 QTc: 525 [place]: P: 28 MT: 166 QRS: 9 T: 47 INTERPRETIVE STATEMENTS: Normal sinus rhythm Prolonged QT Abnormal ECG Compared to ECG 10/23/2018 14:15:27 Prolonged QT interval now present Electronically Signed On 10-23-18 18:24:44 BOTTOM PRESSER by Florentino Houston
--- NOTE | 2018-10-23 18:28 | P.HP ---
Certification for Inpatient Patient admitted to: Observation With expected LOS: <2 Midnights Patient will require the following post-hospital care: None Practitioner: I am a practitioner with admitting privileges, knowledge of patient current condition, hospital course, and medical plan of care. Services: Services provided to patient in accordance with Admission requirements found in Title 42 Section 412.3 of the Code of Federal Regulations Patient History Date of Service: 10/23/18 Primary Care Provider: Dr. Parker; Cardiology-Dr. Houston; EP-Dr. Contreras Reason for admission: Chest pain History of Present Illness: 43-year-old female presented emergency room with chest pain. Patient with history of hypertension, prolonged QT syndrome, chronic pancreatitis. Patient reported left-sided chest pain today. Some nausea noted. It radiates to the head and fingers. She reports some tingling. Minimal abdominal pain noted. Patient reports that she is seen by psych nurse. She was recently placed on amlodipine for better blood pressure control. She also takes nadolol. Patient is to have a pacemaker defibrillator placed on November 04 at [facility] for her prolonged QT syndrome. In the ER patient evaluated. EKG shows no significant ST changes. Initial troponin unremarkable. CBC unremarkable. BMP unremarkable. Chest x-ray unremarkable. CT chest abdomen pelvis shows no acute findings. Patient admitted for observation. When I saw the patient ER, she appeared stable. Patient reports minimal pain to the abdomen. No significant nausea noted Patient with multiple abdominal surgeries including hysterectomy, , lap band procedure and cholecystectomy. She has reported that her blood pressures have been running high. Allergies ketorolac Allergy (Verified 01/02/17 20:57) Hives/Rash, SOB Home medications list reviewed: Yes Home Medications: Evolocumab [Repatha Syringe] 1 dose SQ SEECOM 08/23/18 Losartan/Hydrochlorothiazide [Losartan-Hctz 100-25 mg Tab] 1 tab PO DAILY - Past Medical/Surgical History Diabetic: No -: Hypertension -: Hyperlipidemia -: GERD -: Diverticulosis -: Depression with anxiety -: Prolonged QT syndrome -: Obesity -: Fatty liver -: Vitamin-D deficiency -: Pre diabetes -: Hysterectomy-2013 -: 2x [id number]/2011 -: Carpal Tunnel-2000 -: Gall bladder-2005 -: Lap Band-2011 Psychosocial/ Personal History: She is . Has 3 children. 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 - Family History Mother -: Hypertension, Diabetes, Other (see notes) Notes: High cholesterol Father -: Hypertension, Diabetes - Social History Smoking Status: Never smoker Alcohol use: No CD- Drugs: No Caffeine use: No Place of Residence: Home Review of Systems General: As per HPI Eyes: Unremarkable ENT: Unremarkable Respiratory: Unremarkable Cardiovascular: Chest Pain, As per HPI Gastrointestinal: Nausea, As per HPI Genitourinary: Unremarkable Musculoskeletal: Unremarkable Integumentary: Unremarkable Neurological: Unremarkable Lymphatics: Unremarkable Physical Examination - Physical Exam General: Alert, In no apparent distress, Oriented x3, Cooperative HEENT: Atraumatic, Normocephalic, PERRLA, Other (Dry mucous membranes. Rosacea noted) Neck: Supple, No Thyromegaly Respiratory: Clear to auscultation bilaterally, Normal air movement Cardiovascular: Normal pulses, Regular rate/rhythm Gastrointestinal: Normal bowel sounds, Soft and benign, Non-distended, No masses , No rebound, No guarding, Tenderness (Minimal pain to the abdomen) Musculoskeletal: No contractures, No erythema, No tenderness, No warmth Integumentary: No tenderness/swelling, No erythema, No warmth, No cyanosis Neurological: Normal speech, Normal strength at 5/5 x4 extr, Normal tone, Normal affect Lymphatics: No axilla or inguinal lymphadenopathy - Studies Laboratory Data (last 24 hrs) 10/23/18 16:30: WBC 9.2, Hgb 14.0, Hct 42.4, Plt Count 217 10/23/18 16:30: Sodium 139, Potassium 3.4 L, BUN 14, Creatinine 0.75, Glucose 98 Assessment and Plan - Plan Impression: Chest pain History of prolonged QT syndrome Hypertension on controlled Epigastric pain likely GERD related with history of lap band History of chronic pancreatitis Fatty liver Plan: Chest pain: Patient will be admitted and observed. Will continue to monitor patient on telemetry. Will continue monitor cardiac enzymes. Case discussed with cardiology. Cardiology will see patient tomorrow morning. Will hydrate with IV fluids. Will get blood pressure better controlled. Will increase amlodipine. Will reassess tomorrow. History of prolonged QT syndrome: Patient has seen psych nurse. She is to have the pacemaker defibrillator placed on November 04 at [facility]. Hypertension on controlled: Blood pressure not well controlled. Will continue with nadolol 10 mg daily. Will increase Norvasc to 5 mg daily. Further adjustment may be required. Will monitor closely. Epigastric pain likely GERD related with history of lap band: Will add Pepcid twice daily. Will monitor closely. History of chronic pancreatitis: CT scan shows no pancreatitis. Recheck lipase level. Will provide IV fluids. Fatty liver: Stable. Will check LFTs. Discharge Plan: Home Plan to discharge in: 24 Hours - Advance Directives Does patient have a Living Will: No Does patient have a Durable POA for Healthcare: No - Code Status/Comfort Care Code Status Assessed: Yes (Patient full code.) Time Spent Managing Pts Care (In Minutes): 55
[2018-10-23 19:45] LABS: Urine Blood NEGATIVE (NEG); Urine Glucose NEGATIVE (NEG); Urine Protein NEGATIVE (NEG)
[2018-10-23 19:49] LABS: Albumin 3.6 g/dL (3.4-5.0); Bilirubin Direct 0.2 mg/dL (0-0.2); Bilirubin Total 0.7 mg/dL (0.2-1.0); Protein, Total 7.7 g/dL (6.4-8.2)
[2018-10-23 20:40] VITALS: O2SAT 100
[2018-10-23] MEDS ORDERED: ACETAMINOPHEN 500 MG TAB PO PRN (20:55)
[2018-10-23] MEDS ORDERED: PROMETHAZINE 25 MG TABLET PO PRN (20:55)
[2018-10-23] MEDS ORDERED: ZOLPIDEM TARTRATE 5 MG TABLET PO PRN (20:55)
[2018-10-23] MEDS ORDERED: TRAMADOL HCL 50 MG TAB PO PRN (20:55)
[2018-10-23 20:57] VITALS: BMI 39.0
[2018-10-23] MEDS: FAMOTIDINE 20 MG TAB PO SCH ×2 (21:00→22:08)
[2018-10-23] MEDS: NA CHLORIDE 0.9% 1,000 ML IV SCH (22:08)
[2018-10-23 22:13] LABS: CKMB Creatine Kinase MB < 1.0 ng/mL (0.3-3.6); Creatine Phosphokinase 59 U/L (26-192); Troponin I < 0.02 ng/mL (0.0-0.045)
[2018-10-23] MEDS: IBUPROFEN 400 MG TAB PO PRN (23:23)
[2018-10-24] MEDS: NA CHLORIDE 0.9% 1,000 ML IV SCH (05:42)
[2018-10-24 05:43] LABS: Absolute Lymphocytes (CBC) 1.9 K/uL (0.7-4.9); Absolute Monocytes 0.6 K/uL (0.1-1.3); Absolute Neutrophil 4.4 K/uL (1.8-8.0); Basophils % 0.6 % (0-1.3); Eosinophils % 1.8 % (0-4.4); Hematocrit 35.4 % (36.0-45.0); Lymphocytes % 26.9 % (15.3-44.8); MPV 8.9 fL (7.6-11.3); Monocytes % 8.4 % (3.3-12.3); RBC Red Blood Cell Count 4.21 M/uL (3.86-4.86)
[2018-10-24 06:14] LABS: ALT/SGPT 36 U/L (12-78); AST/SGOT 20 U/L (15-37); Albumin 3.1 g/dL (3.4-5.0); Alkaline Phosphatase 112 U/L (45-117); BUN Blood Urea Nitrogen 14 mg/dL (7-18); Bicarbonate 26 mmol/L (21-32); Bilirubin Total 0.8 mg/dL (0.2-1.0); CKMB Creatine Kinase MB < 1.0 ng/mL (0.3-3.6); Creatine Phosphokinase 46 U/L (26-192); Glucose Level 89 mg/dL (74-106); Magnesium 2.2 mg/dL (1.8-2.4); Potassium 3.3 mmol/L (3.5-5.1); Protein, Total 6.6 g/dL (6.4-8.2); Sodium Level 141 mmol/L (136-145); Troponin I < 0.02 ng/mL (0.0-0.045)
[2018-10-24] MEDS: IBUPROFEN 400 MG TAB PO PRN ×2 (07:20→23:09)
[2018-10-24] MEDS: ENOXAPARIN 40 MG/0.4 ML SQ SCH (08:27)
[2018-10-24 08:51] LABS: Urine Appearance CLEAR; Urine Blood NEGATIVE (NEG); Urine Color YELLOW; Urine Glucose NEGATIVE (NEG); Urine Protein NEGATIVE (NEG); Urine Specific Gravity >=1.030 (1.005-1.030); Urine pH 5.5 (5.0-7.0)
[2018-10-24] MEDS ORDERED: NADOLOL 40 MG TAB PO SCH (09:00)
[2018-10-24 09:22] LABS: Urine Bilirubin NEGATIVE (NEG)
[2018-10-24 09:23] LABS: Urine Microscopic Reflex NO UMIC
[2018-10-24] MEDS: AMLODIPINE 5 MG TAB PO SCH ×2 (10:02→21:58)
[2018-10-24] MEDS: ALPRAZOLAM 0.25 MG TABLET PO PRN ×2 (10:02→23:14)
[2018-10-24] MEDS: FAMOTIDINE 20 MG TAB PO SCH ×2 (10:02→21:57)
--- NOTE | 2018-10-24 10:41 | CON ---
Chief Complaint: Vague described funny feelings in her chest, tingling, shortness of breath. History Of Present Illness: Mrs. Gonzalez has been diagnosed with long QT syndrome and inherited defect both of her children have it. Both of her children have defibrillators. She is scheduled to have a defibrillator. She has had a noninvasive workup for CAD and other structural heart disease that is normal all very recently. We really do not think she has coronary heart disease and so when she trie s to fall asleep she can't fall asleep. She is worried about dying in her sleep and with a lack of s leep. She is getting tingly, paresthesias, worrying a lot. It sounds like she is actually starting to get a little paranoid since she has been in the hospital. Her cardiac enzymes, EKGs, and other te sts are normal except for the long QT syndrome, which we know about. She has no evidence of myocardi al necrosis. N-terminal proBNP is 50, well within the normal range. Mrs. Gonzalez refused to take her sedative last night to fall asleep. She thought she would probably in her sleep. I am going to talk with Dr. Ayala, see if we can move up to date when she gets her defibrillator and I think that would basically solve most of her problems. I do not think she needs to have a heart catheterization or another stress test, and I will see what we can come up with after speaking with Dr. Ayala. ARNOLD/JUANITO Voice ID: [id number] Report ID: [id number]
--- NOTE | 2018-10-24 13:03 | P.PN ---
Subjective Date of Service: 10/24/18 Primary Care Provider: Dr. Parker; Cardiology-Dr. Houston; EP-Dr. Contreras Chief Complaint: Chest pain Subjective: Improving (Increased anxiety still noted. Patient with bradycardia this morning. Blood pressure improved.) Physical Examination - Vital Signs Temperature: 98.1 F Blood Pressure: 136/76 Pulse: 48 Respirations: 16 Pulse Ox (%): 100 - Physical Exam General: Alert, In no apparent distress, Oriented x3, Cooperative HEENT: Atraumatic Neck: Supple Respiratory: Clear to auscultation bilaterally, Normal air movement Cardiovascular: Normal pulses, Regular rate/rhythm Gastrointestinal: Normal bowel sounds, Soft and benign, Non-distended, No tenderness, No masses, No rebound, No guarding Musculoskeletal: No erythema, No tenderness, No warmth Integumentary: No tenderness/swelling, No erythema, No warmth, No cyanosis Neurological: Normal speech, Normal strength at 5/5 x4 extr, Normal tone, Normal affect - Studies Laboratory Data (last 24 hrs) 10/23/18 16:30: WBC 9.2, Hgb 14.0, Hct 42.4, Plt Count 217 10/23/18 16:30: Sodium 139, Potassium 3.4 L, BUN 14, Creatinine 0.75, Glucose 98 Medications List Reviewed: Yes Assessment & Plan Discharge Plan: Transfer Plan to discharge in: 48 Hours Physician Review Additional Text: Impression: Chest pain History of prolonged QT syndrome Hypertension uncontrolled Bradycardia Epigastric pain likely GERD related with history of lap band History of chronic pancreatitis Fatty liver Anxiety Plan: Chest pain: Patient doing better today. Cardiac enzymes unremarkable. Cardiology has evaluated patient. No need for cardiac intervention to assess for CAD. Cardiology plans to discuss case with director broadcast to see if the patient can be transferred to have her defibrillator placed sooner rather than later. Await further recommendations. Patient remain in hospital for possible transfer. I will turn the service over to Dr. Davila tomorrow. I will go over the plan of care with her. History of prolonged QT syndrome: Patient has seen director broadcast. Cardiology plans to arrange for transfer have defibrillator placed. Will have pharmacy review all medications and discontinue those that are contraindicated with prolonged QT syndrome. Hypertension on controlled: Blood pressure better controlled with increased dose of Norvasc. Will discontinue nadolol due to bradycardia. Will continue monitor closely. Bradycardia: Will discontinue nadolol. Epigastric pain likely GERD related with history of lap band: Will adjust Pepcid. History of chronic pancreatitis: CT scan shows no pancreatitis. Continue with IV fluids. Fatty liver: Stable. Will check LFTs. Anxiety: Will provide medication as needed. Time Spent Managing Pts Care (In Minutes): 55
[2018-10-24] MEDS: NACHLORIDE 0.45% 1,000 ML IV SCH (14:00)
[2018-10-24] MEDS ORDERED: POTASSIUM 25 MEQ EFFERV TAB PO ONE (16:13)
[2018-10-24] MEDS ORDERED: ALPRAZOLAM 0.5 MG TABLET PO ONE (16:34)
[2018-10-25] MEDS ORDERED: POTASSIUM 25 MEQ EFFERV TAB PO ONE ×2 (01:37→09:00)
[2018-10-25] MEDS: NACHLORIDE 0.45% 1,000 ML IV SCH (03:20)
[2018-10-25 06:15] LABS: Absolute Lymphocytes (CBC) 1.8 K/uL (0.7-4.9); Absolute Monocytes 0.6 K/uL (0.1-1.3); Absolute Neutrophil 4.5 K/uL (1.8-8.0); Basophils % 0.4 % (0-1.3); Eosinophils % 2.6 % (0-4.4); Hematocrit 36.3 % (36.0-45.0); Lymphocytes % 25.5 % (15.3-44.8); MPV 9.1 fL (7.6-11.3); RBC Red Blood Cell Count 4.32 M/uL (3.86-4.86)
[2018-10-25 06:31] LABS: BUN Blood Urea Nitrogen 11 mg/dL (7-18); Bicarbonate 31 mmol/L (21-32); Glucose Level 83 mg/dL (74-106); Magnesium 2.3 mg/dL (1.8-2.4); Potassium 3.9 mmol/L (3.5-5.1); Sodium Level 140 mmol/L (136-145)
[2018-10-25] MEDS: ENOXAPARIN 40 MG/0.4 ML SQ SCH (08:39)
[2018-10-25] MEDS: AMLODIPINE 5 MG TAB PO SCH (08:40)
[2018-10-25] MEDS: FAMOTIDINE 20 MG TAB PO SCH (08:40)
[2018-10-25 13:52] VITALS: BP 123/72; TEMP 98.8
[2018-10-25] MEDS: IBUPROFEN 400 MG TAB PO PRN (14:07)
--- NOTE | 2018-10-25 15:02 | P.DS ---
Admission Date: 10/23/18 Discharge Date: 10/25/18 Primary Care Provider: Dr. Parker; Cardiology-Dr. Houston; EP-Dr. Contreras Disposition: ROUTINE DISCHARGE Discharge Condition: GOOD Reason for Admission: Chest pain Consultations: Cardiology Brief History of Present Illness: 43-year-old female presented emergency room with chest pain. Patient with history of hypertension, prolonged QT syndrome, chronic pancreatitis. Patient reported left-sided chest pain today. Some nausea noted. It radiates to the head and fingers. She reports some tingling. Minimal abdominal pain noted. Patient reports that she is seen by processing lead. She was recently placed on amlodipine for better blood pressure control. She also takes nadolol. Patient is to have a pacemaker defibrillator placed on November 04 at [facility] for her prolonged QT syndrome. In the ER patient evaluated. EKG shows no significant ST changes. Initial troponin unremarkable. CBC unremarkable. BMP unremarkable. Chest x-ray unremarkable. CT chest abdomen pelvis shows no acute findings. Patient admitted for observation. When I saw the patient ER, she appeared stable. Patient reports minimal pain to the abdomen. No significant nausea noted Patient with multiple abdominal surgeries including hysterectomy, , lap band procedure and cholecystectomy. She has reported that her blood pressures have been running high. Hospital Course: Discharge diagnosis: Chest pain History of prolonged QT syndrome Hypertension uncontrolled Bradycardia Epigastric pain likely GERD related with history of lap band History of chronic pancreatitis Fatty liver Anxiety Hospital Course: Patient was initially admitted to the hospital for atypical chest pain. Troponin x2 were negative EKG was consistent with prolonged QT without any acute changes. Patient's chest pain was most likely secondary to panic attack. Patient is unable to sleep at night and she is concerned that she might get bradycardic in her sleep and . Cardiology was consulted who recommended the patient to be managed medically at this time. Cardiology also discussed the case with the processing lead as they had recommended patient be placed on a Defibrillator. Manager Office Services recommended the patient can be discharged home and have followup appointment with with their office in 1 day and will be scheduled for a defibrillator placement. Patient demonstrated understanding regarding the plan and thus was discharged home under stable condition. Patient while here in the hospital also stated that she is having diarrheal episode which however improved of the day of discharge. Most likely secondary to general anxiety disorder. Patient was asked to follow up with primary care provider regarding starting her anxiety medication versus the cognitive behavioral therapy to help with the anxiety of having her disease. Patient demonstrated understanding and thus was discharged home under stable condition. Vital Signs/Physical Exam: Temp Pulse Resp BP Pulse Ox 98.8 F 53 16 123/72 100 10/25/18 12:00 10/25/18 12:00 10/25/18 12:00 10/25/18 12:00 10/25/18 12:00 General: Alert, In no apparent distress HEENT: Atraumatic, PERRLA, EOMI Neck: Supple, JVD not distended Respiratory: Clear to auscultation bilaterally, Normal air movement Cardiovascular: Regular rate/rhythm, Normal S1 S2 Gastrointestinal: Normal bowel sounds, No tenderness Musculoskeletal: No tenderness Integumentary: No rashes Neurological: Normal speech, Normal tone, Normal affect Lymphatics: No axilla or inguinal lymphadenopathy Laboratory Data at Discharge: WBC 7.1 K/uL (4.3-10.9) 10/25/18 05:27 Hgb 12.2 g/dL (12.0-15.0) 10/25/18 05:27 Hct 36.3 % (36.0-45.0) 10/25/18 05:27 Plt Count 206 K/uL (152-406) 10/25/18 05:27 Sodium 140 mmol/L (136-145) 10/25/18 05:27 Potassium 3.9 mmol/L (3.5-5.1) 10/25/18 05:27 BUN 11 mg/dL (7-18) 10/25/18 05:27 Creatinine 0.64 mg/dL (0.55-1.3) 10/25/18 05:27 Glucose 83 mg/dL (74-106) 10/25/18 05:27 Magnesium 2.3 mg/dL (1.8-2.4) 10/25/18 05:27 Total Bilirubin 0.8 mg/dL (0.2-1.0) 10/24/18 04:58 AST 20 U/L (15-37) 10/24/18 04:58 ALT 36 U/L (12-78) 10/24/18 04:58 Alkaline Phosphatase 112 U/L (45-117) 10/24/18 04:58 Troponin I < 0.02 ng/mL (0.0-0.045) 10/24/18 04:58 Lipase 106 U/L (73-393) 10/23/18 19:25 Home Medications: Evolocumab [Repatha Syringe] 1 dose SQ SEECOM 08/23/18 Amlodipine Besylate [Norvasc] 2.5 mg PO DAILY 10/23/18 Patient Discharge Instructions: Please f.u with Dr Storm in 1 to 2 days. No new medication. Hold Nadolol for now Diet: Regular Activity: Ad andre Followup: JANES STORM [OUTSIDE PHYSICIAN] -
--- NOTE | 2018-10-25 17:45 | PN ---
Ms. Gonzalez, if she wishes, she can have her defibrillator put in probably on Friday. She is instruct ed to call Dr. Ayala's office tomorrow when they are open and tell her she wants to move up the date . Dr. Ayala was very interested in doing it the same day he saw her, but she wanted to wait, and no w that she is nervous, it should be fairly easy to move the date up. At this point, she has received maximal hospital benefit. She can be discharged home. ARNOLD/JUANITO Voice ID: [id number] Report ID: [id number]
== END 2018-10-25 14:13 | disposition home or self-care (01) ==
LOC: ER 16:14 → ERHOLD 18:16 → 4TH 19:49
PROVIDERS: ADMIT Family Medicine; ATTEND Family Medicine
DX: R07.9 Chest pain, unspecified (principal); I10 Essential (primary) hypertension; R00.1 Bradycardia, unspecified; R10.13 Epigastric pain; K86.1 Other chronic pancreatitis; F41.9 Anxiety disorder, unspecified; I45.81 Long QT syndrome
CPT/HCPCS: 36415; 71045; 71260; 74177; 80048; 80053; 80076; 81003; 82550; 82553; 83690; 83735; 83880; 84132; 84484; 85025; 93005; 96360; 96361; 99285; G0378; J1650; J7030; Q9967

== ENCOUNTER 2019-02-04 17:05 | Emergency (ER) | payer OTHER ==
--- OUTSIDE RECORDS SUMMARY | 2019-02-04 17:12 | XMS REPORT | Clinical Summary ---
:1975 Author Organization [facility] Address [address] [place] [address] Care Team Providers Name Role Phone Vy Parker Primary Care Provider Allergies Active Allergy Reactions Severity Noted Date Comments Morphine 01/01/2019 Sob Ketorolac 01/01/2019 Rash Medications Medication Sig Dispensed Refills Start End Status Date Date metoprolol (LOPRESSOR) Take 25 mg by 0 Active 25 MG mouth 2 (two) tabletIndications: times daily. hypertension evolocumab (REPATHA Inject 140 mg 0 Active SYRINGE) 140 mg/mL subcutaneously SyrgIndications: every 14 hypercholesterolemia (fourteen) days Last dose was on 12/23. Due next Fri, 01/06 . amLODIPine (NORVASC) 10 Take 1 tablet (10 30 tablet 0 01/03/01/02/ Active MG tablet mg total) by 19 2019 mouth daily. amLODIPine (NORVASC) 5 Take 5 mg by 0 01/02/ Discontinued MG tabletIndications: mouth daily. 2019 hypertension Missing or 0 01/01/ Discontinued Non-Formulary 2019 Medication Active Problems Problem Noted Date TIA (transient ischemic attack) 01/01/2019 Encounters Date Type Specialty Care Team Description 01/01/2019 - Emergency General Internal Fortunato Pena TIA (transient ischemic attack) (Primary Dx); 01/02/2019 Medicine Dileep Downs MD Panic attack; Jianndani, Other headache syndrome; MD Alexa Hypertension, uncontrolled 01/01/2019 Orders Only General Internal Medicine after 02/03/2018 Social History Tobacco Use Types Packs/Day Years Used Date Never Assessed Sex Assigned at Date Recorded Not on file Job Start Date Occupation Industry Not on file Not on file Not on file Travel History Travel Start Travel End No recent travel history available. Last Filed Vital Signs Vital Sign Reading Time Taken Blood Pressure 138/81 01/02/2019 11:49 AM CDT Pulse 61 01/02/2019 11:49 AM CDT Temperature 36 C (96.8 F) 01/02/2019 11:49 AM CDT Respiratory Rate 18 01/02/2019 4:30 PM CDT Oxygen Saturation 100% 01/02/2019 4:30 PM CDT Inhaled Oxygen Concentration - - Weight 96.6 kg (212 lb 15.4 oz) 01/01/2019 6:04 PM CDT Height 157.5 cm (5' 2.01") 01/01/2019 6:04 PM CDT Body Mass Index 38.94 01/01/2019 6:04 PM CDT Plan of Treatment Not on file Procedures Procedure Name Priority Date/Time Associated Comments Diagnosis REPORT OF PROCEDURE - 01/05/2019 2:32 ENDOSCOPY SCAN PM CDT RHYTHM STRIP - SCAN 01/05/2019 2:32 PM CDT LIPID PANEL Routine 01/02/2019 6:12 Results for this AM CDT procedure are in the results section. COMPREHENSIVE Routine 01/02/2019 6:12 Results for this METABOLIC PANEL AM CDT procedure are in the results section. VITAMIN B12 AND FOLATE Routine 01/02/2019 4:07 Results for this AM CDT procedure are in the results section. HEMOGLOBIN A1C Routine 01/02/2019 4:07 Results for this AM CDT procedure are in the results section. TSH/FREE T4 IF Routine 01/02/2019 4:07 Results for this INDICATED AM CDT procedure are in the results section. CBC (HEMOGRAM ONLY) Routine 01/02/2019 4:07 Results for this AM CDT procedure are in the results section. URINALYSIS MICROSCOPIC Routine 01/01/2019 11:37 Results for this PM CDT procedure are in the results section. URINALYSIS WITH Routine 01/01/2019 11:37 Results for this MICROSCOPIC IF PM CDT procedure are in INDICATED the results section. ECG 12-LEAD Routine 01/01/2019 4:35 PM CDT Procedure Note - Interface, External Ris In - 01/01/2019 7:26 PM CDT Ventricular Rate 66 BPM Atrial Rate 66 BPM P-R Interval 166 ms QRS Duration 86 ms Q-T Interval 502 ms QTC Calculation(Bazett) 526 ms P Newton 18 degrees R Newton 9 degrees T Newton 15 degrees Normal sinus rhythm Cannot rule out Inferior infarct , age undetermined Prolonged QT Abnormal ECG No previous ECGs available ECG 12-LEAD STAT 01/01/2019 4:35 PM CDT XR CHEST 1 VIEW STAT 01/01/2019 3:10 PM CDT Results for this PORTABLE/BEDSIDE procedure are in the results section. CBC W/PLT COUNT & AUTO STAT 01/01/2019 3:00 PM CDT Results for this DIFFERENTIAL procedure are in the results section. PT/APTT STAT 01/01/2019 3:00 PM CDT CBC W/PLT COUNT & AUTO STAT 01/01/2019 3:00 PM CDT Results for this DIFFERENTIAL procedure are in the results section. TROPONIN I STAT 01/01/2019 3:00 PM CDT B-TYPE NATRIURETIC FACTOR STAT 01/01/2019 3:00 PM CDT Results for this (BNP) procedure are in the results section. MAGNESIUM STAT 01/01/2019 3:00 PM CDT BASIC METABOLIC PANEL (7) STAT 01/01/2019 3:00 PM CDT SCREEN, URINE STAT 01/01/2019 2:[address] BRAIN/STROKE TEST DESIGN STAT 01/01/2019 2:29 PM CDT after 02/03/2018 Results EKG-SCANNED (01/05/2019 2:32 PM CDT) Narrative Performed At RHYTHM STRIP - SCAN (01/05/2019 2:32 PM CDT) Narrative Performed At Lipid panel (01/02/2019 6:12 AM CDT) Triglycerides 95 mg/dL [facility] Cholesterol 133 mg/dL [facility] HDL 46 mg/dL [facility] LDL Calculated 68 mg/dL [facility] Specimen Blood Narrative Performed At Triglyceride Reference Range: [facility] Low Risk <150 [id number] High Risk 200-499 Very High Risk>=500 Cholesterol Reference Range: Low Risk <200 [id number] High Risk>240 HDL Cholesterol Reference Range: Low Risk >=60 High Risk <40 LDL Cholesterol Reference Range: Optimal<100 Near [id number] Very High >=190 Performing Organization Address City/State/Zipcode Phone Number [facility] [address] [place] [address] CENTER Comprehensive metabolic panel (01/02/2019 6:12 AM CDT) Protein, Total 7.1 6.0 - 8.3 gm/dL [facility] Albumin 3.8 3.5 - 5.0 g/dL [facility] Alkaline Phosphatase 119 40 - 150 U/L [facility] Total Bilirubin 0.7 0.2 - 1.2 mg/dL [facility] Sodium 139 136 - 145 meq/L [facility] Potassium 3.5 3.5 - 5.1 meq/L [facility] Chloride 103 98 - 107 meq/L [facility] CO2 25 22 - 29 meq/L [facility] BUN 19 7 - 21 mg/dL [facility] Creatinine 0.71 0.57 - 1.25 mg/dL [facility] Glucose 104 70 - 105 mg/dL [facility] Calcium 9.6 8.4 - 10.2 mg/dL [facility] AST 28 5 - 34 U/L [facility] ALT 30 6 - 55 U/L [facility] EGFR 90Comment: ESTIMATED GFR mL/min/1.73 sq m [facility] IS NOT ACCURATE [facility] CREATININE CLEARANCE IN PREDICTING GLOMERULAR FILTRATION RATE. ESTIMATED GFR IS NOT APPLICABLE FOR DIALYSIS PATIENTS. Specimen Blood Performing Organization Address City/State/Zipcode Phone Number [address] [address] [place] Vitamin B12 and Folate (01/02/2019 4:07 AM CDT) Vitamin B12 318 213 - 816 pg/mL [facility] Folate 16.9 >=7.0 ng/mL [facility] Specimen Blood Performing Organization Address City/State/Zipcode Phone Number [address] [address] [place] TSH/Free T4 If Indicated (01/02/2019 4:07 AM CDT) TSH 2.58 0.35 - 4.94 uIU/mL [facility] Specimen Blood Performing Organization Address [facility] [place]/[facility] Phone Number [address] [address] [place] CBC (Hemogram only) (01/02/2019 4:07 AM CDT) WBC 6.5 3.5 - 10.5 K/L [facility] RBC 4.61 3.93 - 5.22 M/L [facility] Hemoglobin 12.7 11.2 - 15.7 GM/DL [facility] Hematocrit 39.8 34.1 - 44.9 % [facility] MCV 86.3 79.4 - 94.[address] [facility] MCH 27.5 25.6 - 32.[address] [facility] MCHC 31.9 (L) 32.2 - 35.5 GM/DL [facility] RDW 13.5 11.7 - 14.4 % [facility] Platelets 222 150 - 450 K/CU MM [facility] MPV 10.5 9.4 - 12.[address] [facility] nRBC 0 0 - 0 /[address] [facility] Specimen Blood Performing Organization Address City/State/Zipcode Phone Number [address] [address] [place] Hemoglobin A1c (01/02/2019 4:07 AM CDT) Hemoglobin A1C 4.8 4.3 - 6.1 % [facility] Specimen Blood Performing Organization Address City/State/Zipcode Phone Number [address] [address] [phone] [place] Urinalysis Microscopic Only (01/01/2019 11:37 PM CDT) RBC, UA <1 /HPF [facility] WBC, UA 1 /HPF [facility] Mucus Many [facility] Squam Epithel, UA 4 /HPF [facility] Specimen Urine Performing Organization Address City/[facility] Phone Number [address] [address] [phone] [place] Urinalysis with Microscopic If Indicated (01/01/2019 11:37 PM CDT) Color, UA Yellow [facility] Clarity, UA Hazy [facility] Specific [place], UA 1.032 1.001 - 1.035 [facility] pH, UA 5.5 5.0 - 8.0 [facility] Protein, UA 30 mg/dL (A) Negative [facility] Glucose, UA Negative Negative [facility] Ketones, UA Trace (A) Negative [facility] Bilirubin, UA Negative Negative [facility] Blood, UA Negative Negative [facility] Nitrite, UA Negative Negative [facility] Leukocytes, UA Negative Negative [facility] Urobilinogen, UA 2.0 (H) 0.2 - 1.0 mg/dL [facility] Specimen Source [facility] Specimen Urine Performing Organization Address City/[facility] Phone Number [facility] [address] [place] [address] CENTER ECG 12 lead (01/01/2019 4:35 PM CDT) Specimen Narrative Performed At Ventricular Rate 66 BPM GE MUSE Atrial Rate 66 BPM P-R Interval 166 ms QRS Duration 86 ms Q-T Interval 502 ms QTC Calculation(Bazett) 526 ms P Newton 18 degrees R Newton 9 degrees T Newton 15 degrees Normal sinus rhythm Prolonged QT Abnormal ECG No previous ECGs available Confirmed by MD Yuan Roberto ([id number]) on 01/03/2019 5:59:19 PM Procedure Note Interface, External Ris In - 01/03/2019 5:59 PM CDT Ventricular Rate 66 BPM Atrial Rate 66 BPM P-R Interval 166 ms QRS Duration 86 ms Q-T Interval 502 ms QTC Calculation(Bazett) 526 ms P Newton 18 degrees R Newton 9 degrees T Newton 15 degrees Normal sinus rhythm Prolonged QT Abnormal ECG No previous ECGs available Confirmed by MD Yuan Roberto ([id number]) on 01/03/2019 5:59:19 PM Performing Organization Address [facility] [place]/[facility] Phone Number [facility] XR chest 1 view portable/bedside (01/01/2019 3:10 PM CDT) Specimen Narrative Performed At FINAL REPORT [employer] TECHNIQUE: Frontal chest radiograph dated 01/01/2019. CLINICAL HISTORY: Chest pain COMPARISON STUDY: None IMPRESSION: Left-sided, dual-chamber defibrillator is in place. No pleural effusion or pneumothorax. Cardiomediastinal silhouette is normal in size. No pulmonary edema. No fracture. Signed: Giovanna Bennett MD Report Verified Date/Time:01/01/2019 15:29:08 Reading Location: [facility] Radiology Reading Room Procedure Note Interface, External Ris In - 01/01/2019 3:31 PM CDT FINAL REPORT TECHNIQUE: Frontal chest radiograph dated 01/01/2019. CLINICAL HISTORY: Chest pain COMPARISON STUDY: None IMPRESSION: Left-sided, dual-chamber defibrillator is in place. No pleural effusion or pneumothorax. Cardiomediastinal silhouette is normal in size. No pulmonary edema. No fracture. Signed: Giovanna Bennett MD Report Verified Date/Time: 01/01/2019 15:29:08 Reading Location: [facility] Radiology Reading Room Performing Organization Address City/[facility] Phone Number GE RIS PT/aPTT (01/01/2019 3:00 PM CDT) Protime 13.5 11.7 - 14.[address] [facility] INR 1.0 <=5.9 [facility] PTT 31.0 22.5 - 36.[address] [facility] Specimen Blood Narrative Performed At RECOMMENDED COUMADIN/WARFARIN INR THERAPY [facility] RANGES STANDARD DOSE: 2.0 - 3.0 Includes: PROPHYLAXIS for venous thrombosis, systemic embolization; TREATMENT for venous thrombosis and/or pulmonary embolus. HIGH RISK: Target INR is 2.5-3.5 for patients with mechanical heart valves. Performing Organization Address [facility] [place]/[facility] Phone Number [address] [address] CENTER CBC with platelet count + automated diff (01/01/2019 3:00 PM CDT) WBC 9.6 3.5 - 10.5 K/L [facility] RBC 4.87 3.93 - 5.22 M/L [facility] Hemoglobin 13.4 11.2 - 15.7 GM/DL [facility] Hematocrit 41.1 34.1 - 44.9 % [facility] MCV 84.4 79.4 - 94.[address] [facility] MCH 27.5 25.6 - 32.[address] [facility] MCHC 32.6 32.2 - 35.5 GM/DL [facility] RDW 13.2 11.7 - 14.4 % [facility] Platelets 222 150 - 450 K/CU MM [facility] MPV 9.6 9.4 - 12.[address] [facility] nRBC 0 0 - 0 /[address] [facility] % Neutros 83 % [facility] % Lymphs 12 % [facility] % Monos 3 % [facility] % Eos 0 % [facility] % Baso 0 % [facility] # Neutros 8.03 (H) 1.56 - 6.13 K/L [facility] # Lymphs 1.17 (L) 1.18 - 3.74 K/L [facility] # Monos 0.32 0.24 - 0.36 K/L [facility] # Eos 0.04 0.04 - 0.36 K/L [facility] # Baso 0.03 0.01 - 0.08 K/L [facility] Immature Granulocytes-Relative 1 0 - 1 % [facility] Specimen Blood Performing Organization Address City/State/Zipcode Phone Number [facility] [address] [place] [address] CENTER Troponin I (01/01/2019 3:00 PM CDT) Troponin I 0.02 0.00 - 0.03 ng/mL [facility] Specimen Blood Narrative Performed At Troponin I (TnI) levels must be interpreted [facility] in the context of the presenting symptoms and the clinical findings. Elevated TnI levels indicate myocardial damage, but are not specific for ischemic heart disease. Elevated TnI levels are seen in patients with other cardiac conditions (including myocarditis and congestive heart failure), and slight TnI elevations occur in patients with other conditions, including sepsis, renal failure, acidosis, acute neurological disease, and persistent tachyarrhythmia. Performing Organization Address City/State/Zipcode Phone Number [address] [address] [phone] CENTER B-type Natriuretic Factor (BNP) (01/01/2019 3:00 PM CDT) BNP 32 0 - 100 pg/mL [facility] Specimen Blood Performing Organization Address [facility] [place]/[facility] Phone Number [address] [address] CENTER Magnesium (01/01/2019 3:00 PM CDT) Magnesium 2.0 1.6 - 2.6 mg/dL [facility] Specimen Blood Performing Organization Address City/[facility] Phone Number [address] [address] CENTER Basic Metabolic Panel (01/01/2019 3:00 PM CDT) Sodium 140 136 - 145 meq/L [facility] Potassium 3.8 3.5 - 5.1 meq/L [facility] Chloride 102 98 - 107 meq/L [facility] CO2 28 22 - 29 meq/L [facility] BUN 14 7 - 21 mg/dL [facility] Creatinine 0.72 0.57 - 1.25 mg/dL [facility] Glucose 105 70 - 105 mg/dL [facility] Calcium 10.3 (H) 8.4 - 10.2 mg/dL [facility] EGFR Comment: INSUFFICIENT CLINICAL mL/min/1.73 sq m [facility] DATA TO CALCULATE ESTIMATED [facility]ENTER GFR. Specimen Blood Performing Organization Address City/State/Zipcode Phone Number [facility] [address] [place] [address] [place] screen, urine (01/01/2019 2:55 PM CDT) Preg Test, Ur Negative [facility] Specimen Urine Performing Organization Address [facility] [place]/[facility]/Zipcode Phone Number [place] [phone] [place] [address] [place] [address] brain/stroke protocol (01/01/2019 2:29 PM CDT) Specimen Narrative Performed At FINAL REPORT [employer] [address] RIS CT, BRAIN/STROKE PROTOCOL CLINICAL INDICATION:Focal neuro deficit, new, fixed or worsening, <6 hours NUMBNESS HEADACHE COMPARISON: None TECHNIQUE:Noncontrast axial CT imaging of the brain and skull. DOSE REDUCTION: Dose modulation, iterative reconstruction, and/or weight-based adjustment of the mA/kV was utilized to reduce the radiation dose to as low as reasonably achievable. FINDINGS: No intracranial hemorrhage, midline shift or mass effect. Midline structures are normally developed. Mild chronic microvascular ischemic changes of the periventricular and subcortical white matter are present. No hydrocephalus. Orbits are within normal limits. No obstructive paranasal sinus disease. IMPRESSION: No acute intracranial findings. No CT evidence of acute stroke. If there is persistent neurologic deficit, MRI is recommended for further evaluation. Signed: Sara Varela MD Report Verified Date/Time:01/01/2019 14:33:00 Reading Location: [facility] Radiology Reading Room Procedure Note Interface, External Ris In - 01/01/2019 2:[address] PM CD[address] FINAL REPORT CT, BRAIN/STROKE PROTOCOL CLINICAL INDICATION: Focal neuro deficit, new, fixed or worsening, <6 hours NUMBNESS HEADACHE COMPARISON: None TECHNIQUE: Noncontrast axial CT imaging of the brain and skull. DOSE REDUCTION: Dose modulation, iterative reconstruction, and/or weight-based adjustment of the mA/kV was utilized to reduce the radiation dose to as low as reasonably achievable. FINDINGS: No intracranial hemorrhage, midline shift or mass effect. Midline structures are normally developed. Mild chronic microvascular ischemic changes of the periventricular and subcortical white matter are present. No hydrocephalus. Orbits are within normal limits. No obstructive paranasal sinus disease. IMPRESSION: No acute intracranial findings. No CT evidence of acute stroke. If there is persistent neurologic deficit, MRI is recommended for further evaluation. Signed: Sara Varela MD Report Verified Date/Time: 01/01/2019 14:33:00 Reading Location: [facility] Radiology Reading Room Performing Organization Address City/State/Zipcode Phone Number GE RIS after 02/03/2018 Insurance Payer Benefit Plan / Group Subscriber ID Type Phone Address [employer] - [employer] CARE [employer] HMO/POS/OPEN ACCESS xxxxxxxxxxx HMO/POS
--- OUTSIDE RECORDS SUMMARY | 2019-02-04 17:12 | XMS REPORT | Clinical Summary ---
:1975 Author Organization [facility] Address [address] [place] [address] Care Team Providers Name Role Phone Asked, No Pcp Primary Care Provider Unavailable Allergies Active Allergy Reactions Severity Noted Date Comments Morphine 10/28/2018 SOB, vomit, low BP Ketorolac Anaphylaxis High 10/28/2018 Medications Medication Sig Dispensed Refills Start Date End Date Status amLODIPine Take 2.5 mg by 0 Active (NORVASC) 5 mg mouth daily. tablet evolocumab Inject 140 mg 0 Active (REPATHA under the skin SURECLICK) 140 every 14 mg/mL pen injector (fourteen) injection days. ALPRAZolam (XANAX) Take 0.5 mg by 0 Active 0.5 MG tablet mouth nightly as needed for anxiety. coenzyme Q10 Take 100 mg by 0 Active (COQ-10) 100 mg mouth daily. capsule nadolol (CORGARD) Take 20 mg by 0 10/28/2018 Discontinued 20 MG tablet mouth daily. traMADol (ULTRAM) Take 1 tablet 12 tablet 0 10/29/2018 11/01/2018 50 mg tablet (50 mg total) by mouth every 6 (six) hours as needed for moderate pain for up to 3 days. minocycline Take 1 capsule 10 capsule 0 10/29/2018 11/03/2018 (MINOCIN) 100 MG (100 mg total) capsule by mouth 2 (two) times a day for 5 days. Active Problems Problem Noted Date Long Q-T syndrome 10/28/2018 Encounters Date Type Specialty Care Team Description 10/28/2018 Anesthesia Event Procedural Katy Modi Cardiology A 10/28/2018 Surgery Procedural Yogesh Contreras EP AICD IMPLANT Cardiology MD Yareli SINGLE DUAL BI VENT PHOTON BLADE [28036 (CPT)] 10/28/2018 - Hospital Encounter Cardiology Yogesh Contreras Long Q-T syndrome 10/29/2018 MD Yareli after 02/03/2018 Social History Tobacco Use Types Packs/Day Years Used Date Never Assessed Sex Assigned at Date Recorded Not on file Job Start Date Occupation Industry Not on file Not on file Not on file Travel History Travel Start Travel End No recent travel history available. Last Filed Vital Signs Vital Sign Reading Time Taken Blood Pressure 146/85 10/29/2018 7:00 AM [employer] Pulse 60 10/29/2018 7:00 AM [employer] Temperature 36.1 C (97 F) 10/29/2018 7:00 AM [employer] Respiratory Rate 17 10/29/2018 7:00 AM [employer] Oxygen Saturation 99% 10/29/2018 7:00 AM [employer] Inhaled Oxygen Concentration - - Weight 94.9 kg (209 lb 3 oz) 10/28/2018 11:28 AM [employer] Height 157.5 cm (5' 2") 10/28/2018 11:28 AM [employer]EL[employer] Body Mass Index 38.26 10/28/2018 11:28 AM [employer]EL[employer] Plan of Treatment Health Maintenance Due Date Last Done Comments CERVICAL CANCER SCREENING 1997 INFLUENZA VACCINE 05/13/2019 Implants Implanted Type Area Associate Professor Of History Device Shelf Model / Identifier Expiration Serial / Date Lot Camila Xt Mri - [id number] - [id number] Cardiac N/A: [employer] CRM [id number] / Implanted: Qty: 1 on 10/28/2018 by Yogesh Contreras Jr., MD Pacemaker N/[employer] [id number] / Generators [id number] Lead [id number] Active Sc Sprint 55 Cm - [id number] Cardiac Pacing N/A: [employer] CRM 07/10/2020 [id number] / Implanted: 10/28/2018 (Quantity not on file) Leads or N/[employer] [id number] / Electrodes or [id number] Accessories Lead, Bipolar Active Fixation Atrial Steroid Eluting 45 Cm Capsure Fix Novus System - [id number] Cardiac Pacing N/A: [employer] CRM 04/21/2020 [id number] / Implanted: 10/28/2018 (Quantity not on file) Leads or N/[employer] [id number] / Electrodes or [id number] Accessories Procedures Procedure Name Priority Date/Time Associated Comments Diagnosis ECG PRE/POST OP Routine 10/29/2018 4:08 Results for this AM [employer] JAVA DEVELOPER procedure are in the results section. XR CHEST 1 VW Routine 10/28/2018 5:33 Results for this PORTABLE PM [employer]ELOPER procedure are in the results section. EP AICD IMPLANT Routine 10/28/2018 3:48 Long Q-T syndrome Results for this SINGLE DUAL BI VENT PM [employer] J[employer] DEVELOPER procedure are in the results section. 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 Urgency: Elective Difficult Airway: No Anesthesiologist: Kirk Gramajo MD Resident/VAULT KEEPER/AA: Mariposa Lincoln CRNA Performed by: resident/VAULT KEEPER/AA Preoxygenated with 100% O2: Yes C-spine Precautions Maintained Throughout: Yes Mask Ventilation: Not attempted Final Airway Type: Supraglottic airway Final LMA: I-Gel LMA Size: 4 Number of Attempts at Approach: 1 ECG PRE/POST OP Routine 10/28/2018 11:15 AM FR[employer] END JAVA DEVELOPER after 02/03/2018 Results ECG Pre/Post Op-Tomorrow (10/29/2018 4:08 AM FR[employer] END JAVA DEVELOPER)Only the most recent of2 resultswithin the time period is included. Ventricular rate 60 [facility] Atrial rate 60 [facility] FL interval 138 [facility] QRSD interval 104 [facility] QT interval 536 [facility] QTC interval 536 [facility] P axis 1 3 [facility] QRS axis 1 47 [facility] T wave axis 59 [facility] EKG impression Electronic atrial pacemaker-Possible Acute [facility] MUSE pericarditis-Prolonged QT-Abnormal ECG- Narrative Performed At Performing Organization Address City/State/Zipcode Phone Number [facility] MUSE [address] [place] [address] XR Chest 1 Vw Portable (10/28/2018 5:33 PM FRONT END JAVA DEVELOPER) Narrative Performed At [facility] Examination:XR CHEST 1 VW PORTABLE Clinical history:"Pneumothorax" Comparison:There are no prior studies for comparison. One radiographic view of the chest was evaluated. IMPRESSION: There are no apparent infiltrates, pleural effusions, or pneumothoraces.The cardiomediastinal silhouette and the imaged bones appear to be within normal limits. [id number] Procedure Note Interface, Radiology Results Incoming - 10/28/2018 8:41 PM FRONT END JAVA DEVELOPER Examination: XR CHEST 1 VW PORTABLE Clinical history: "Pneumothorax" Comparison: There are no prior studies for comparison. One radiographic view of the chest was evaluated. IMPRESSION: There are no apparent infiltrates, pleural effusions, or pneumothoraces. The cardiomediastinal silhouette and the imaged bones appear to be within normal limits. [facility]-[id number] Performing Organization Address City/State/Zipcode Phone Number [facility] [address] [place] [address] Cv electrophysiology procedure (10/28/2018 3:48 PM FRONT END JAVA DEVELOPER) Narrative Performed At PREOPERATIVE DIAGNOSIS: [facility] Long QT syndrome. POSTOPERATIVE DIAGNOSIS: Long QT syndrome. PROCEDURES PERFORMED: 1.Monitored anesthesia care. 2.Dual chamber defibrillator placement. 3.Cardiac fluoroscopy. 4.Left upper extremity venogram. 5.Intraoperative defibrillation safety threshold testing. BRIEF HISTORY AND CLINICAL BACKGROUND: This is a 43-year-old woman with proven heterozygous long QT syndrome type 2. Two of her children have the same condition.There is no known history of cardiac arrest.We treated her with beta blockers, but she did not tolerate it. She is extremely anxious about having a cardiac arrest and wanted an implantable defibrillator, which is a class 2 indication that she comes for it now. PROCEDURE: Informed consent had been obtained.Intravenous antibiotics were infused appropriately.The patient was taken to the Electrophysiology Laboratory in the fasting-nonsedated state and was placed on a fluoroscopy table.The position of the external defibrillation pads over the heart was confirmed using fluoroscopy. The chest was prepped and draped in the usual sterile fashion.Local anesthesia was achieved with 1% lidocaine.Intravenous sedation was administered as required.An upper extremity venogram was performed, and during the venogram, access to the axillary/subclavian vein was achieved.Two soft-tipped J-wires were advanced into the venous system.A pocket was then made below the plane of the pectoralis fascia using a scalpel, cautery, and blunt dissection. Using the [id number]-[id number] technique and introducer sheaths, a defibrillation lead and high right atrial lead were placed into the venous system.The defibrillation lead was advanced to the right ventricular apex.Acute pacing and sensing thresholds were then assessed and when deemed adequate, maximum output pacing was performed to test for diaphragmatic stimulation, and none was seen.The lead was sutured to the pectoral muscle using 0-Ethibond sutures tied over the lead collar. The atrial lead was deployed into the right atrium.Acute pacing and sensing thresholds were tested and when deemed adequate, maximum output pacing was performed to test for diaphragmatic stimulation and none was seen.The lead was sutured to the muscle with 0 Ethibond around the suture collar. The pacemaker pocket was visually, manually, and radiographically inspected to ensure there were no gauze or sponges in the pocket.The pocket was then washed using an antibiotic solution.Gloves and drapes were changed as needed. The ICD was unpacked.The defibrillator was then attached to the leads, the set screws were tightened and each portion of the lead was gently tugged upon to insure the leads were affixed within the header.The ICD and lead slack were inserted into the pocket and the generator was tied to the muscle via the 0-Ethibond suture.Defibrillation safety threshold testing was then performed. After the DFT was found to be satisfactory, the pectoralis fascia was closed using running 0-Vicryl sutures.More superficial closure was obtained using absorbable sutures and skin closure was achieved using stainless steel phil and skin adhesive.Excellent approximation of the wound edges and hemostasis was achieved at all levels of closure. COMPLICATIONS: None. FINDINGS: 1.The defibrillator is a [employer] System[employer] model [id number] serial #[id number]. 2.The atrial lead is a 5076, serial #[id number], measured P-wave 2 millivolts, pacing threshold 1 volt, impedance 775 ohms. 3.The RV lead is a Medtronic 6935M, serial #[id number], measured R waves 5 to 6 millivolts, a true bipolar 10 to 12 millivolts extended bipolar, pacing threshold 0.4 volts, impedance 755 ohms.Defibrillation safety threshold testing was performed.DFT was 20 joules or less.There was 2 to 3 beats dropout at least sensitivity. CONCLUSION: Successful dual-chamber defibrillator. RECOMMENDATIONS: IV antibiotics and home in the morning. Performing Organization Address City/State/Zipcode Phone Number [facility] [address] [place] [address] after 02/03/2018 Insurance Payer Benefit Plan / Group Subscriber ID Type Phone Address [facility] OPEN ACCESS/NETWORK xxxxxxxxxxx HMO Advance Directives Patient has advance care planning documents on file. For more information, please contact:Joseph Flores[address] [place] [address]
--- OUTSIDE RECORDS SUMMARY | 2019-02-04 17:13 | XMS REPORT ---
:1975 [facility] Address [address] [place] [address] Dr. Thakkar [address] [place] [id number] Care Team Providers Name Role Phone TIMOTHY ROSARIO Unavailable Unavailable Problems This patient has no known problems. Allergies, Adverse Reactions, Alerts This patient has no known allergies or adverse reactions. Medications This patient has no known medications. Results Test Description Test Time Test Comments Text Results Atomic Results Result Comments HEMOGLOBIN A1C 2019-01-02 12:55:00 Test Item Value Reference Range Comments HEMOGLOBIN A1C (BEAKER) (test lzbs=862) 4.8 % 4.3-6.1 LIPID [id number] 08:01:00 Test Item Value Reference Range Comments TRIGLYCERIDES (BEAKER) (test ovhq=910) 95 mg/dL CHOLESTEROL (BEAKER) (test lrwp=774) 133 mg/dL HDL CHOLESTEROL (BEAKER) (test lizk=617) 46 mg/dL LDL CHOLESTEROL CALCULATED (BEAKER) (test 68 mg/dL vbzk=846) Triglyceride Reference Range: Low Risk <150 Borderline 150- 199 High Risk 200-499 Very High Risk >=500Cholesterol Reference Range: Low Risk <200 Borderline 200-239 High Risk > 240HDL Cholesterol Reference Range: Low Risk >=60 High Risk <40LDL Cholesterol Reference Range: Optimal <100 Near Optimal 100-129 Borderline 130-159 High 160-189 Very High >=190COMPREHENSIVE METABOLIC [id number] 08:01:00 Test Item Value Reference Range Comments TOTAL PROTEIN (BEAKER) 7.1 gm/dL 6.0-8.3 (test mwci=386) ALBUMIN (BEAKER) (test 3.8 g/dL 3.5-5.0 eqer=9049) ALKALINE PHOSPHATASE 119 U/L 40-150 (BEAKER) (test dctd=620) BILIRUBIN TOTAL (BEAKER) 0.7 mg/dL 0.2-1.2 (test hfug=515) SODIUM (BEAKER) (test 139 meq/L 136-145 efpa=240) POTASSIUM (BEAKER) (test 3.5 meq/L 3.5-5.1 zfru=018) CHLORIDE (BEAKER) (test 103 meq/L 98-107 fsxh=835) CO2 (BEAKER) (test 25 meq/L 22-29 llin=888) BLOOD UREA NITROGEN 19 mg/dL 7-21 (BEAKER) (test zquq=889) CREATININE (BEAKER) (test 0.71 mg/dL 0.57-1.25 aqnm=932) GLUCOSE RANDOM (BEAKER) 104 mg/dL 70-105 (test zkxr=109) CALCIUM (BEAKER) (test 9.6 mg/dL 8.4-10.2 upwj=534) AST (SGOT) (BEAKER) (test 28 U/L 5-34 incl=323) ALT (SGPT) (BEAKER) (test 30 U/L 6-55 oost=533) EGFR (BEAKER) (test 90 mL/min/1.73 sq m ESTIMATED GFR IS NOT bqxg=9650) ACCURATE CREATININE CLEARANCE IN PREDICTING GLOMERULAR FILTRATION RATE. ESTIMATED GFR IS NOT APPLICABLE FOR DIALYSIS PATIENTS. TSH/FREE T4 IF [id number] 06:11:00 Test Item Value Reference Range Comments THYROID STIMULATING HORMONE (BEAKER) (test 2.58 uIU/mL 0.35-4.94 hcyv=952) VITAMIN B12 AND [id number] 06:11:00 Test Item Value Reference Range Comments VITAMIN B12 (BEAKER) (test ieua=514) 318 pg/mL 213-816 FOLATE (BEAKER) (test fali=198) 16.9 ng/mL >=7.0 CBC (HEMOGRAM ONLY)2019-01-02 04:56:00 Test Item Value Reference Range Comments WHITE BLOOD CELL COUNT (BEAKER) (test idvr=892) 6.5 K/ L 3.5-10.5 RED BLOOD CELL COUNT (BEAKER) (test nuzd=024) 4.61 M/ L 3.93-5.22 HEMOGLOBIN (BEAKER) (test ydji=387) 12.7 GM/DL 11.2-15.7 HEMATOCRIT (BEAKER) (test plto=932) 39.8 % 34.1-44.9 MEAN CORPUSCULAR VOLUME (BEAKER) (test dqoh=583) 86.3 fL 79.4-94.8 MEAN CORPUSCULAR HEMOGLOBIN (BEAKER) (test 27.5 pg 25.6-32.2 aksx=469) MEAN CORPUSCULAR HEMOGLOBIN CONC (BEAKER) (test 31.9 GM/DL 32.2-35.5 dihl=530) RED CELL DISTRIBUTION WIDTH (BEAKER) (test 13.5 % 11.7-14.4 gtwp=441) PLATELET COUNT (BEAKER) (test cvwr=287) 222 K/CU MM 150-450 MEAN PLATELET VOLUME (BEAKER) (test nyxa=702) 10.5 fL 9.4-12.3 NUCLEATED RED BLOOD CELLS (BEAKER) (test 0 /100 WBC 0-0 gtpu=372) URINALYSIS [id number] 02:49:00 Test Item Value Reference Range Comments RBC UA (BEAKER) (test szem=815) < /HPF WBC UA (BEAKER) (test sppe=027) 1 /HPF MUCUS (BEAKER) (test rzec=6125) Many SQUAMOUS EPITHELIAL (BEAKER) (test fizp=923) 4 /HPF URINALYSIS WITH MICROSCOPIC IF [id number] 02:46:00 Test Item Value Reference Range Comments COLOR (BEAKER) (test iuff=450) Yellow CLARITY (BEAKER) (test ctqq=167) Hazy SPECIFIC GRAVITY UA (BEAKER) (test nfuj=979) 1.032 1.001-1.035 PH UA (BEAKER) (test goka=981) 5.5 5.0-8.0 PROTEIN UA (BEAKER) (test duak=078) 30 mg/dL Negative GLUCOSE UA (BEAKER) (test yqjb=849) Negative Negative KETONES UA (BEAKER) (test hvgw=355) Trace Negative BILIRUBIN UA (BEAKER) (test shlk=456) Negative Negative BLOOD UA (BEAKER) (test jirv=774) Negative Negative NITRITE UA (BEAKER) (test rfyz=997) Negative Negative LEUKOCYTE ESTERASE UA (BEAKER) (test fimp=927) Negative Negative UROBILINOGEN UA (BEAKER) (test auim=312) 2.0 mg/dL 0.2-1.0 SOURCE(BEAKER) (test tyos=5102) B-TYPE NATRIURETIC FACTOR (BNP)2019-01-01 15:41:00 Test Item Value Reference Range Comments B-TYPE NATRIURETIC PEPTIDE (BEAKER) (test osxx=308) 32 pg/mL 0-100 TROPONIN [id number] 15:40:00 Test Item Value Reference Range Comments TROPONIN I (BEAKER) (test rvjl=639) 0.02 ng/mL 0.00-0.03 Troponin I (TnI) levels must be interpreted in the context of the presenting symptoms and the clinical findings. Elevated TnI levels indicate myocardial damage, but are not specific for ischemic heart disease. Elevated TnI levels are seen in patients with other cardiac conditions (including myocarditis and congestive heart failure), and slight TnI elevations occur in patients with other conditions, including sepsis, renal failure, acidosis, acute neurological disease, and persistent tachyarrhythmia.BASIC METABOLIC [id number] 15:39:00 Test Item Value Reference Range Comments SODIUM (BEAKER) (test 140 meq/L 136-145 dvfp=042) POTASSIUM (BEAKER) (test 3.8 meq/L 3.5-5.1 ehnv=224) CHLORIDE (BEAKER) (test 102 meq/L 98-107 eemc=696) CO2 (BEAKER) (test 28 meq/L 22-29 iynl=879) BLOOD UREA NITROGEN 14 mg/dL 7-21 (BEAKER) (test oryb=294) CREATININE (BEAKER) (test 0.72 mg/dL 0.57-1.25 jbue=739) GLUCOSE RANDOM (BEAKER) 105 mg/dL 70-105 (test nsrc=031) CALCIUM (BEAKER) (test 10.3 mg/dL 8.4-10.2 cqgo=048) EGFR (BEAKER) (test mL/min/1.73 sq m INSUFFICIENT CLINICAL DATA vffk=8706) TO CALCULATE ESTIMATED GFR. [id number] 15:33:00 Test Item Value Reference Range Comments MAGNESIUM (BEAKER) (test henf=677) 2.0 mg/dL 1.6-2.6 RAD, CHEST, 1 VIEW, NON [id number] 15:29:00Reason for exam:->chest painIs the patient ?->UnknownFINAL REPORT TECHNIQUE: Frontal chest radiograph dated 01/01/2019. CLINICAL HISTORY: Chest pain COMPARISON STUDY: None IMPRESSION:Left-sided, dual-chamber defibrillator is in place. No pleural effusion or pneumothorax. Cardiomediastinal silhouette is normal in size. No pulmonaryedema. No fracture. Signed: Giovanna Bennetteport Verified Date/Time: 01/01/2019 15:29:08 Reading Location: [facility] Radiology Reading Room [id number] 15:23:00 Test Item Value Reference Range Comments PROTIME (BEAKER) (test rtyz=982) 13.5 seconds 11.7-14.7 INR (BEAKER) (test hhxk=656) 1.0 <=5.9 PARTIAL THROMBOPLASTIN TIME (BEAKER) (test 31.0 seconds 22.5-36.0 khvv=697) RECOMMENDED COUMADIN/WARFARIN INR THERAPY RANGESSTANDARD DOSE: 2.0 - 3.0 Includes: PROPHYLAXIS forvenous thrombosis, systemic embolization; TREATMENT for venous thrombosis and/or pulmonary embolus.HIGH RISK: Target INR is 2.5-3.5 for patients with mechanical heart valves. SCREEN, [id number] 15: 23:00 Test Item Value Reference Range Comments TEST URINE (BEAKER) (test rxgj=502) Negative CBC W/PLT COUNT & AUTO [id number] 15:15:00 Test Item Value Reference Range Comments WHITE BLOOD CELL COUNT (BEAKER) (test qeja=484) 9.6 K/ L 3.5-10.5 RED BLOOD CELL COUNT (BEAKER) (test cjxk=718) 4.87 M/ L 3.93-5.22 HEMOGLOBIN (BEAKER) (test yobf=570) 13.4 GM/DL 11.2-15.7 HEMATOCRIT (BEAKER) (test avws=261) 41.1 % 34.1-44.9 MEAN CORPUSCULAR VOLUME (BEAKER) (test genq=037) 84.4 fL 79.4-94.8 MEAN CORPUSCULAR HEMOGLOBIN (BEAKER) (test 27.5 pg 25.6-32.2 krcg=351) MEAN CORPUSCULAR HEMOGLOBIN CONC (BEAKER) (test 32.6 GM/DL 32.2-35.5 yzoa=683) RED CELL DISTRIBUTION WIDTH (BEAKER) (test 13.2 % 11.7-14.4 xsjg=072) PLATELET COUNT (BEAKER) (test cako=028) 222 K/CU MM 150-450 MEAN PLATELET VOLUME (BEAKER) (test fjnu=350) 9.6 fL 9.4-12.3 NUCLEATED RED BLOOD CELLS (BEAKER) (test 0 /100 WBC 0-0 gryc=142) NEUTROPHILS RELATIVE PERCENT (BEAKER) (test 83 % epkp=768) LYMPHOCYTES RELATIVE PERCENT (BEAKER) (test 12 % nhdk=634) MONOCYTES RELATIVE PERCENT (BEAKER) (test 3 % oqqt=946) EOSINOPHILS RELATIVE PERCENT (BEAKER) (test 0 % jzuv=908) BASOPHILS RELATIVE PERCENT (BEAKER) (test 0 % hznf=937) NEUTROPHILS ABSOLUTE COUNT (BEAKER) (test 8.03 K/ L 1.56-6.13 sbrn=121) LYMPHOCYTES ABSOLUTE COUNT (BEAKER) (test 1.17 K/ L 1.18-3.74 kvjt=850) MONOCYTES ABSOLUTE COUNT (BEAKER) (test 0.32 K/ L 0.24-0.36 ncvc=497) EOSINOPHILS ABSOLUTE COUNT (BEAKER) (test 0.04 K/ L 0.04-0.36 rzok=810) BASOPHILS ABSOLUTE COUNT (BEAKER) (test 0.03 K/ L 0.01-0.08 mkkk=281) IMMATURE GRANULOCYTES-RELATIVE PERCENT (BEAKER) 1 % 0-1 (test dxhj=3576) CT, BRAIN/STROKE [id number] 14:33:00Reason for exam:->NUMBNESSReason for exam:->HEADACHEIs the patient ?->NoWhat is thepatient's sedation requirement?->No SedationFINAL REPORT CT, BRAIN/STROKE PROTOCOL CLINICAL INDICATION: Focal neuro deficit, new, fixed or worsening, <6 hoursNUMBNESSHEADACHE COMPARISON: None TECHNIQUE: Noncontrast axial CT imaging of the brain and skull. DOSE REDUCTION: Dose modulation, iterative reconstruction, and/or weight-based adjustment of the mA/kV was utilized to reduce the radiation dose to as low as reasonably achievable. FINDINGS:No intracranial hemorrhage, midline shift or mass effect. Midline structures are normally developed. Mild chronic microvascular ischemic changes of the periventricular and subcortical white matter are present. No hydrocephalus. Orbits are within normal limits. No obstructiveparanasal sinus disease. IMPRESSION: No acute intracranial findings. No CT evidence of acute stroke. If there is persistent neurologic deficit, MRI is recommended for further evaluation. Signed: Sara Varela MDRepsaint mary[facility] Verified Date/Time: 2018 14:33:00 Reading Location: [facility] Radiology Reading Room
--- NOTE | 2019-02-04 19:28 | RAD REPORT ---
EXAM DESCRIPTION: CT - Head Brain Wo Cont - 02/04/2019 7:15 pm CLINICAL HISTORY: hypertension;Headache COMPARISON: Chest Abdomen Pelvis W Cont dated 10/23/2018 TECHNIQUE: All CT scans are performed using dose optimization technique as appropriate and may inclu de automated exposure control or mA/KV adjustment according to patient size. FINDINGS: No intracranial hemorrhage, hydrocephalus or extra-axial fluid collection.No areas of brai n edema or evidence of midline shift. The paranasal sinuses and mastoids are clear. The calvarium is intact. IMPRESSION: No acute intracranial abnormality.
[2019-02-04] MEDS ORDERED: DEXAMETHASONE 10 MG/ML VIAL ONE (19:30)
[2019-02-04] MEDS ORDERED: DIPHENHYDRAMINE 50 MG/ML VIAL ONE (19:31)
[2019-02-04] MEDS ORDERED: NA CHLORIDE 0.9% 1,000 ML ONE (19:31)
[2019-02-04] MEDS ORDERED: METOCLOPRAMIDE 10 MG/2mL INJ ONE (19:31)
[2019-02-04] MEDS ORDERED: ONDANSETRON 4 MG/2 ML VIAL ONE (19:31)
--- NOTE | 2019-02-04 20:00 | RAD REPORT ---
EXAM DESCRIPTION: RAD - Chest Single View - 02/04/2019 7:53 pm CLINICAL HISTORY: CHEST PAIN Chest pain. COMPARISON: <Comparisons> FINDINGS: Portable technique limits examination quality. The lungs are grossly clear. The heart is normal in size. No displaced fractures.Dual lead pacer/ def ibrillator device present. IMPRESSION: No acute intrathoracic process suspected.
[2019-02-04 20:10] LABS: Urine Blood NEGATIVE (NEG); Urine Glucose NEGATIVE (NEG); Urine Protein NEGATIVE (NEG); Urine Specific Gravity 1.015 (1.005-1.030); Urine pH 8.5 (5.0-7.0)
[2019-02-04 20:18] LABS: Absolute Lymphocytes (CBC) 2.1 K/uL (0.7-4.9); Absolute Monocytes 0.7 K/uL (0.1-1.3); Absolute Neutrophil 7.7 K/uL (1.8-8.0); Basophils % 0.6 % (0-1.3); Lymphocytes % 19.2 % (15.3-44.8); MPV 8.3 fL (7.6-11.3); Monocytes % 6.8 % (3.3-12.3); RBC Red Blood Cell Count 5.01 M/uL (3.86-4.86)
[2019-02-04 20:19] LABS: Protime INR 1.13
[2019-02-04 20:38] LABS: ALT/SGPT 33 U/L (12-78); AST/SGOT 22 U/L (15-37); Albumin 3.8 g/dL (3.4-5.0); Alkaline Phosphatase 137 U/L (45-117); BUN Blood Urea Nitrogen 12 mg/dL (7-18); Bicarbonate 27 mmol/L (21-32); Bilirubin Direct 0.1 mg/dL (0-0.2); Bilirubin Total 0.5 mg/dL (0.2-1.0); Glucose Level 107 mg/dL (74-106); Magnesium 2.2 mg/dL (1.8-2.4); NT PRO-BNP 48 pg/mL (<125); Potassium 3.5 mmol/L (3.5-5.1); Protein, Total 8.2 g/dL (6.4-8.2); Sodium Level 142 mmol/L (136-145); Troponin (Emerg Dept Use Only) < 0.02 ng/mL (0.0-0.045)
--- NOTE | 2019-02-04 21:50 | ER ---
Nurse's Notes [facility] Name: Vanessa Gonzalez Age: 43 yrs Sex: Female : 1975 Arrival Date: 02/04/2019 Time: 17:05 Bed 27 Private MD: Vy Parker Diagnosis: Headache Presentation: 02/04 17:28 Presenting complaint: Patient states: "I started getting this migraine and feeling hot aj1 and flushed and burning and tingling and now my face feel likes it numb and it goes down my left arm, and I had a pacemaker put in in October and that areas hurting too and my blood pressure has been running high all day" Reports symptoms started at 1300 today. Patient also reports history of TIA. Transition of care: patient was not received from another setting of care. Onset of symptoms was February 04, 2019 at 13:00. Risk Assessment: Do you want to hurt yourself or someone else? Patient reports no desire to harm self or others. Initial Sepsis Screen: Does the patient meet any 2 criteria? No. Patient's initial sepsis screen is negative. Does the patient have a suspected source of infection? No. Patient's initial sepsis screen is negative. Care prior to arrival: None. 17:28 Method Of Arrival: Ambulatory aj 17:28 Acuity: ANDREW 3 aj1 Triage Assessment: 17:32 Headache History: The patient has had previous headaches and this one is different than aj1 previous episodes, and this one is more severe than previous episodes. General: Appears in no apparent distress. uncomfortable, Behavior is calm, cooperative, appropriate for age. Pain: Complains of pain in occipital area Pain currently is 8 out of 10 on a pain scale. Quality of pain is described as pressure, Pain began 4 hours ago. Neuro: Level of Consciousness is awake, alert, obeys commands, Oriented to person, place, time, situation, Line Supply are equal bilaterally Gait is steady, Speech is normal, Facial symmetry appears normal, Reports headache. Cardiovascular: Reports chest pain. 17:35 Pain: Also complains of no other associated symptoms. 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 - Social history:: Smoking status: Patient/guardian denies using tobacco. - Ebola Screening: : No symptoms or risks identified at this time. Screenin:35 Abuse screen: Denies threats or abuse. Denies injuries from another. ca1 17:35 Nutritional screening: No deficits noted. Tuberculosis screening: No symptoms or risk ca1 factors identified. Fall Risk None identified. Assessment: 17:35 General: Appears in no apparent distress. comfortable, Behavior is calm, cooperative, ca1 appropriate for age. Pain: Complains of pain in scalp and occipital area Pain does not radiate. Pain currently is 8 out of 10 on a pain scale. Pain began 4 hours ago. Aggravated by bright lights. Neuro: Level of Consciousness is awake, alert, obeys commands, Oriented to person, place, time, situation, Reports headache occipital area. Cardiovascular: Heart tones S1 S2 present Capillary refill < 3 seconds Patient's skin is warm and dry. Respiratory: Airway is patent is compromised Respiratory effort is even, unlabored, Respiratory pattern is Breath sounds are clear bilaterally. GI: Abdomen is round non-distended, Bowel sounds present X 4 quads. Abd is soft and non tender X 4 quads. Patient currently denies nausea, vomiting. : No deficits noted. No signs and/or symptoms were reported regarding the genitourinary system. EENT: No deficits noted. No signs and/or symptoms were reported regarding the EENT system. Derm: Skin is intact, is healthy with good turgor, Skin is pink, warm \\T\\ dry. Musculoskeletal: Circulation, motion, and sensation intact. Capillary refill < 3 seconds. 18:30 Reassessment: Patient appears in no apparent distress at this time. Patient and/or ca1 family updated on plan of care and expected duration. Pain level reassessed. Patient is alert, oriented x 3, equal unlabored respirations, skin warm/dry/pink. 19:35 Reassessment: Patient appears in no apparent distress at this time. Patient and/or ca1 family updated on plan of care and expected duration. Pain level reassessed. Patient is alert, oriented x 3, equal unlabored respirations, skin warm/dry/pink. 20:37 Reassessment: Patient appears in no apparent distress at this time. Patient is alert, ca1 oriented x 3, equal unlabored respirations, skin warm/dry/pink. Patient states feeling better. 21:48 Reassessment: Patient appears in no apparent distress at this time. Patient is alert, ca1 oriented x 3, equal unlabored respirations, skin warm/dry/pink. Vital Signs: 17:32 BP 181 / 109; Pulse 85; Resp 20; Temp 97.9; Pulse Ox 100% on R/A; Weight 96.62 kg (R); aj1 Height 5 ft. 2 in. (157.48 cm) (R); Pain 8/10; 18:30 BP 160 / 97; Pulse 70; Resp 18 S; Pulse Ox 98% on R/A; ca1 19:30 BP 171 / 99; Pulse 73; Resp 19 S; Pulse Ox 97% on R/A; ca1 20:37 BP 140 / 76; Pulse 62; Resp 18 S; Pulse Ox 95% on R/A; ca1 21:48 BP 128 / 85; Pulse 60; Resp 18 S; Pulse Ox 100% on R/A; ca1 17:32 Body Mass Index 38.96 (96.62 kg, 157.48 cm) aj1 ED Course: 17:05 Patient arrived in ED. as 17:06 Vy Parker MD is Private Physician. as 17:31 Triage completed. aj1 17:32 Arm band placed on Patient placed in an exam room. aj1 17:35 Patient has correct armband on for positive identification. Placed in gown. Bed in low ca1 position. Call light in reach. Side rails up X 1. waistline joiner overlock on. Pulse ox on. NIBP on. Door closed. Noise minimized. Lights dimmed. Warm blanket given. 18:17 Urine --Ancillary (enter results) Sent. ca1 18:17 Urine Dipstick--Ancillary (enter results) Sent. ca1 18:40 Eliot Day PA is PHCP. cp 18:40 García Gray MD is Attending Physician. cp 19:00 Inserted saline lock: 20 gauge in right antecubital area, using aseptic technique. ca1 Blood collected. 19:11 Bianca Fisher, MARIA R is Primary Nurse. ca1 19:16 CT Head Brain wo Cont In Process Unspecified. EDMS 19:53 XRAY Chest (1 view) In Process Unspecified. EDMS 20:00 Lab(s) recollected, by me, sent to lab. ca1 21:49 Francisco Hui MD is Referral Physician. cp 22:02 No provider procedures requiring assistance completed. IV discontinued, intact, ca1 bleeding controlled, No redness/swelling at site. Pressure dressing applied. Administered Medications: 19:15 Drug: NS 0.9% 1000 ml Route: IV; Rate: 1 bolus; Site: right antecubital; ca1 20:30 Follow up: Urine output 230 ml; Response: No adverse reaction; IV Status: Completed ca1 infusion 19:30 Drug: Decadron - Dexamethasone 10 mg Route: IVP; Site: right antecubital; ca1 21:00 Follow up: Response: No adverse reaction; Pain is decreased ca1 19:31 Not Given (Physician Discretion): Reglan 20 mg IVP once; over 15 mins cp 19:35 Drug: Reglan 10 mg Route: IVP; Site: right antecubital; ca1 21:00 Follow up: Response: No adverse reaction ca1 19:54 Not Given (Patient Refused): Zofran 4 mg IVP once; over 2 minutes ca1 19:54 Not Given (Patient Refused): Benadryl 25 mg IVP once ca1 Output: 20:30 Urine: 230ml; Total: 230ml. ca1 Outcome: 21:49 Discharge ordered by . cp 22:02 Discharged to home via wheelchair, with family. ca1 22:02 Condition: stable 22:02 Discharge instructions given to patient, Instructed on discharge instructions, follow up and referral plans. medication usage, Demonstrated understanding of instructions, follow-up care, medications, Prescriptions given X 1. 22:03 Patient left the ED. ca1 Signatures: Dispatcher [employer] EDMS Amy De Jesus RN RN aj1 Suha Mai Corey, PA PA cp Bianca Fisher RN RN ca1
--- NOTE | 2019-02-04 21:51 | EDPHYS ---
Physician Documentation [facility] Name: Vanessa Gonzalez Age: 43 yrs Sex: Female : 1975 Arrival Date: 02/04/2019 Time: 17:05 Bed 27 Private MD: Vy Parker ED Physician García Gray HPI: 02/04 18:53 This 43 yrs old Female presents to ER via Ambulatory with complaints of cp Numbness Of Face, High Blood Pressure, Headache. 18:53 The patient complains of pain to the right side of head and right back of head. cp 18:53 The patient describes the headache as aching. cp 18:55 Onset: The symptoms/episode began/occurred today, at 13:00. cp 18:55 Associated signs and symptoms: Pertinent positives: paresthesias, Pertinent negatives: cp altered mental status, fever, neck stiffness, vision loss, vomiting, weakness. Severity of symptoms: in the emergency department the pain is unchanged, despite home interventions, took Imitrex w/o relief. Headache History: Other history of migraines with similar symptoms. 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 - Social history:: Smoking status: Patient/guardian denies using tobacco. - Ebola Screening: : No symptoms or risks identified at this time. ROS: 19:00 Constitutional: Negative for body aches, chills, fever, poor PO intake. cp 19:00 Eyes: Negative for pain, redness, vision loss. cp 19:00 ENT: Negative for drainage from ear(s), ear pain, sore throat, difficulty swallowing, difficulty handling secretions. 19:00 Neck: Negative for pain with movement, pain at rest, stiffness. cp 19:00 Cardiovascular: Positive for chest pain, Negative for edema, palpitations. 19:00 Respiratory: Negative for cough, shortness of breath, wheezing. 19:00 Abdomen/GI: Negative for abdominal pain, vomiting, diarrhea, constipation. 19:00 Back: Negative for pain at rest, pain with movement, radiated pain. 19:00 : Negative for urinary symptoms. 19:00 Skin: Negative for cellulitis, rash. 19:00 Neuro: Positive for headache, tingling, burning sensation left side of face and left arm, Negative for altered mental status, speech changes, weakness. 19:00 All other systems are negative. cp Exam: 19:08 Constitutional: The patient appears in no acute distress, alert, awake, cp non-diaphoretic, non-toxic, well developed, well nourished, uncomfortable. 19:08 Head/Face: Normocephalic, atraumatic. Eyes: Pupils equal round and reactive to light, cp extra-ocular motions intact. Lids and lashes normal. Conjunctiva and sclera are non-icteric and not injected. Cornea within normal limits. Periorbital areas with no swelling, redness, or edema. ENT: Nares patent. No nasal discharge, no septal abnormalities noted. Tympanic membranes are normal and external auditory canals are clear. Oropharynx with no redness, swelling, or masses, exudates, or evidence of obstruction, uvula midline. Mucous membranes moist. Neck: Trachea midline, no thyromegaly or masses palpated, and no cervical lymphadenopathy. Supple, full range of motion without nuchal rigidity, or vertebral point tenderness. No Meningismus. Chest/axilla: Normal chest wall appearance and motion. Nontender with no deformity. No lesions are appreciated. 19:08 Cardiovascular: Rate: normal, Rhythm: regular, Heart sounds: murmur, not appreciated, Edema: is not appreciated, JVD: is not appreciated. 19:08 Respiratory: the patient does not display signs of respiratory distress, Respirations: normal, no use of accessory muscles, no retractions, no splinting, no tachypnea, labored breathing, is not present, Breath sounds: are clear throughout, no decreased breath sounds, no stridor, no wheezing. 19:08 Abdomen/GI: Inspection: abdomen appears normal, Bowel sounds: active, all quadrants, Palpation: abdomen is soft and non-tender, in all quadrants, voluntary guarding, is not appreciated, involuntary guarding, is not appreciated. 19:08 Back: pain, is absent, ROM is normal. 19:08 Skin: cellulitis, is not appreciated, no rash present. 19:08 Neuro: Orientation: is normal, Mentation: is normal, Cerebellar function: Romberg testing is negative, normal finger to nose testing, Motor: moves all fours, strength is normal, Sensation: light touch is decreased in the left facial cheek and left arm. 19:50 ECG was reviewed by the Attending Physician. cp Vital Signs: 17:32 BP 181 / 109; Pulse 85; Resp 20; Temp 97.9; Pulse Ox 100% on R/A; Weight 96.62 kg (R); aj1 Height 5 ft. 2 in. (157.48 cm) (R); Pain 8/10; 18:30 BP 160 / 97; Pulse 70; Resp 18 S; Pulse Ox 98% on R/A; ca1 19:30 BP 171 / 99; Pulse 73; Resp 19 S; Pulse Ox 97% on R/A; ca1 20:37 BP 140 / 76; Pulse 62; Resp 18 S; Pulse Ox 95% on R/A; ca1 21:48 BP 128 / 85; Pulse 60; Resp 18 S; Pulse Ox 100% on R/A; ca1 17:32 Body Mass Index 38.96 (96.62 kg, 157.48 cm) aj1 MDM: 18:41 Patient medically screened. cp 19:00 Differential diagnosis: cerebral vascular accident, migraine, subarachnoid bleed, cp subdural hematoma, tension headache, TIA. 21:48 ED course: VSS. Patient reports headache and symptoms improved with meds. Will cp discharge to home for continued monitoring. 21:49 Data reviewed: vital signs, nurses notes, lab test result(s), EKG, radiologic studies, cp CT scan, plain films. 21:49 Test interpretation: by ED physician or midlevel provider: ECG. Counseling: I had a cp detailed discussion with the patient and/or guardian regarding: the historical points, exam findings, and any diagnostic results supporting the discharge/admit diagnosis, lab results, radiology results, the need for outpatient follow up, a neurologist, to return to the emergency department if symptoms worsen or persist or if there are any questions or concerns that arise at home. 02/04 18:03 Order name: Urine Dipstick--Ancillary (enter results); Complete Time: 20:39 eb 02/04 18:03 Order name: Urine --Ancillary (enter results); Complete Time: 20:39 eb 02/04 18:53 Order name: Basic Metabolic Panel; Complete Time: 20:39 cp 02/04 21:35 Interpretation: CL 108; GLUC 107. cp 02/04 18:53 Order name: CBC with Diff; Complete Time: 20:39 cp 02/04 21:36 Interpretation: Normal except: RBC 5.01. cp 02/04 18:53 Order name: LFT's; Complete Time: 20:39 cp 02/04 21:36 Interpretation: Normal except: ALK 137; GLOB 4.4; A/G 0.9. cp 02/04 18:53 Order name: Magnesium; Complete Time: 20:39 cp 02/04 18:53 Order name: NT PRO-BNP; Complete Time: 20:39 cp 02/04 18:53 Order name: PT-INR; Complete Time: 20:39 cp 02/04 18:53 Order name: Troponin (emerg Dept Use Only); Complete Time: 20:39 cp 02/04 18:53 Order name: XRAY Chest (1 view); Complete Time: 20:02 cp 02/04 18:53 Order name: CT Head Brain wo Cont; Complete Time: 20:02 cp 02/04 20:03 Interpretation: Report reviewed. cp 02/04 18:53 Order name: EKG; Complete Time: 18:54 cp 02/04 18:53 Order name: Cardiac monitoring; Complete Time: 19:54 cp 02/04 18:53 Order name: EKG - Nurse/Tech; Complete Time: 19:54 cp 02/04 18:53 Order name: IV Saline Lock; Complete Time: 19:55 cp 02/04 18:53 Order name: Labs collected and sent; Complete Time: 19:55 cp 02/04 18:53 Order name: O2 Per Protocol; Complete Time: 19:14 cp 02/04 18:53 Order name: O2 Sat Monitoring; Complete Time: 19:14 cp EC:50 Rate is 68 beats/min. Rhythm is regular. MI interval is normal. QRS interval is normal. cp QT interval is prolonged at 484 msec. Interpreted by me. Reviewed by me. Administered Medications: 19:15 Drug: NS 0.9% 1000 ml Route: IV; Rate: 1 bolus; Site: right antecubital; ca1 20:30 Follow up: Urine output 230 ml; Response: No adverse reaction; IV Status: Completed ca1 infusion 19:30 Drug: Decadron - Dexamethasone 10 mg Route: IVP; Site: right antecubital; ca1 21:00 Follow up: Response: No adverse reaction; Pain is decreased ca1 19:31 Not Given (Physician Discretion): Reglan 20 mg IVP once; over 15 mins cp 19:35 Drug: Reglan 10 mg Route: IVP; Site: right antecubital; ca1 21:00 Follow up: Response: No adverse reaction ca1 19:54 Not Given (Patient Refused): Zofran 4 mg IVP once; over 2 minutes ca1 19:54 Not Given (Patient Refused): Benadryl 25 mg IVP once ca1 Disposition: 22:15 Chart complete. cp Disposition: 02/04/19 21:49 Discharged to Home. Impression: Headache. - Condition is Stable. - Discharge Instructions: Migraine Headache. - Prescriptions for Fiorinal 50- 325-40 mg Oral Capsule - take 1 capsule by ORAL route every 4 hours As needed - not to exceed 6 capsules per day; 20 capsule. - Medication Reconciliation Form, Thank You Letter, Antibiotic Education, Prescription Opioid Use, Work release form form. - Follow up: Francisco Hui MD; When: 2 - 3 days; Reason: Recheck today's complaints. - Problem is new. - Symptoms have improved. Addendum: 02/09/2019 10:18 Co-signature as Attending Physician, García Gray MD I agree with the assessment and k dr plan of care. Signatures: Dispatcher [employer] EDAmy Jauregui RN RN aj1 García Gray MD MD [facility] Eliot Day PA PA cp Bianca Fisher RN RN ca1 Corrections: (The following items were deleted from the chart) 02/04 22:03 21:49 02/04/2019 21:49 Discharged to Home. Impression: Headache. Condition is Stable. ca1 Forms are Medication Reconciliation Form, Thank You Letter, Antibiotic Education, Prescription Opioid Use. Follow up: Francisco Hui; When: 2 - 3 days; Reason: Recheck today's complaints. Problem is new. Symptoms have improved. cp
[2019-02-04 22:17] VITALS: TEMP 97.9
[2019-02-04 22:29] VITALS: BP 128/85; O2SAT 100
--- NOTE | 2019-02-05 07:39 | EKG ---
Test Date: 2019-02-04 Test Time: 19:43:19 Media Analyst: NICOLE MEASUREMENT RESULTS: Intervals: Rate: 68 WA: 178 QRSD: 96 QT: 484 QTc: 514 [place]: P: 39 WA: 178 QRS: 24 T: 19 INTERPRETIVE STATEMENTS: Normal sinus rhythm Prolonged QT Abnormal ECG Compared to ECG 10/23/2018 16:24:16 No significant changes Electronically Signed On 02-05-19 07:39:06 CDT by Hill Self
== END 2019-02-04 22:03 | disposition home or self-care (01) ==
LOC: ER 17:05
DX: R51 Headache (principal); F41.9 Anxiety disorder, unspecified; F32.9 Major depressive disorder, single episode, unspecified; K21.9 Gastro-esophageal reflux disease without esophagitis; I10 Essential (primary) hypertension; Z88.6 Allergy status to analgesic agent; Z88.5 Allergy status to narcotic agent
CPT/HCPCS: 36415; 70450; 71045; 80048; 80076; 81003; 81025; 83735; 83880; 84484; 85025; 85610; 93005; 96361; 96374; 96375; 99284; J1100; J2405; J2765; J7030

== ENCOUNTER 2019-03-28 17:59 | Emergency (ER) | payer OTHER ==
--- OUTSIDE RECORDS SUMMARY | 2019-03-28 18:02 | XMS REPORT | Clinical Summary ---
:1975 Author Organization [facility] Address [address] [place] [address] Care Team Providers Name Role Phone Asked, [...] Yareli SINGLE DUAL BI VENT PHOTON BLADE [[id number] (CPT)] 10/28/2018 - Hospital Encounter Cardiology Yogesh Contreras Long Q-T syndrome 10/29/2018 MD Yareli after 03/27/2018 Social History Tobacco Use Types Packs/Day Years Used Date Never Assessed Sex Assigned at Date Recorded Not on file Job Start Date Occupation Industry Not on file Not on file Not on file Travel History Travel Start Travel End No recent travel history available. Last Filed Vital Signs Vital Sign Reading Time Taken Blood Pressure 146/85 10/29/2018 7:00 AM DEATH CLAIM EXAMINER Pulse 60 10/29/2018 7:00 AM DEATH CLAIM EXAMINER Temperature 36.1 C (97 F) 10/29/2018 7:00 AM DEATH CLAIM EXAMINER Respiratory Rate 17 10/29/2018 7:00 AM DEATH CLAIM EXAMINER Oxygen Saturation 99% 10/29/2018 7:00 AM DEATH CLAIM EXAMINER Inhaled Oxygen Concentration - - Weight 94.9 kg (209 lb 3 oz) 10/28/2018 11:28 AM DEATH CLAIM EXAMINER Height 157.5 cm (5' 2") 10/28/2018 11:28 AM DEATH CLAIM EXAMINER Body Mass Index 38.26 10/28/2018 11:28 AM DEATH CLAIM EXAMINER Plan of Treatment Health Maintenance Due Date Last Done Comments INFLUENZA VACCINE 05/13/2019 Implants Implanted Type Area Costume Design Teacher Device Shelf Model / Identifier Expiration Serial / Date Lot Camila Xt Dr Mri - [id number] - [id number] Cardiac N/A: [employer] [facility] [id number] / Implanted: Qty: 1 on 10/28/2018 by Yogesh Contreras Jr., MD Pacemaker N[employer] [id number] / Generators [id number] Lead [id number] Active Sc Sprint 55 Cm - [id number] Cardiac Pacing N/A: [employer] [facility] 07/10/2020 [id number] / Implanted: 10/28/2018 (Quantity not on file) Leads or [employer] [id number] / Electrodes or [id number] Accessories Lead, Bipolar Active Fixation Atrial Steroid Eluting 45 Cm Capsure Fix Novus System - [id number] Cardiac Pacing N/A: [employer] [facility] 04/21/2020 [id number] / Implanted: 10/28/2018 (Quantity not on file) Leads or [employer] [id number] / Electrodes or [id number] Accessories Procedures Procedure Name Priority Date/Time Associated Comments Diagnosis ECG PRE/POST OP Routine 10/29/2018 4:08 Results for this AM DEATH CLAIM EXAMINER procedure are in the results section. XR CHEST 1 VW Routine 10/28/2018 5:33 Results for this PORTABLE PM DEATH CLAIM EXAMINER procedure are in the results section. EP AICD IMPLANT Routine 10/28/2018 3:48 Long Q-T syndrome Results for this SINGLE DUAL BI VENT PM DEATH CLAIM EXAMINER procedure are in the results section. 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 Ventricular rate 60 [facility] Atrial rate 60 [facility] FL interval 138 [facility] QRSD interval 104 [facility] QT interval 536 [facility] QTC interval 536 [facility] P axis 1 3 [facility] QRS axis 1 47 [facility] T wave axis 59 [facility] EKG impression Electronic atrial [facility] pacemaker-Possible Acute pericarditis-Prolonged QT-Abnormal ECG- Specimen Narrative Performed At Performing Organization Address City/State/Zipcode Phone Number [facility] [address] [place] [address] XR Chest 1 Vw Portable (10/28/2018 5:33 PM DEATH CLAIM EXAMINER) Specimen Narrative Performed At [facility] Examination:XR CHEST 1 VW PORTABLE Clinical history:"Pneumothorax" Comparison:There are no prior studies for comparison. One radiographic view of the chest was evaluated. IMPRESSION: There are no apparent infiltrates, pleural effusions, or pneumothoraces.The cardiomediastinal silhouette and the imaged bones appear to be within normal limits. [id number] Procedure Note Interface, Radiology Results Incoming - 10/28/2018 8:41 PM DEATH CLAIM EXAMINER Examination: XR CHEST 1 VW PORTABLE Clinical history: "Pneumothorax" Comparison: There are no prior studies for comparison. One radiographic view of the chest was evaluated. IMPRESSION: There are no apparent infiltrates, pleural effusions, or pneumothoraces. The cardiomediastinal silhouette and the imaged bones appear to be within normal limits. [id number] Performing Organization Address City/State/Zipcode Phone Number [facility] [address] [place] [address] Cv electrophysiology procedure (10/28/2018 3:48 PM DEATH CLAIM EXAMINER) Specimen Narrative Performed At PREOPERATIVE DIAGNOSIS: [facility] Long [...] scalpel, cautery, and blunt dissection. Using the hpfi-att-mpzp technique and introducer sheaths, a defibrillation lead [...] COMPLICATIONS: None. FINDINGS: 1.The defibrillator is a [employer] model [id number] serial #[id number]. 2.The atrial lead is a 5076, serial #[id number], measured P-wave 2 millivolts, pacing threshold 1 volt, impedance 775 ohms. 3.The RV lead is a Medtronic 6935M, serial #[id number], measured R waves 5 to 6 millivolts, a true bipolar 10 to 12 millivolts extended bipolar, pacing threshold 0.4 volts, impedance 755 ohms.Defibrillation safety threshold testing was performed.DFT was 20 joules or less.There was 2 to 3 beats dropout at least sensitivity. CONCLUSION: Successful dual-chamber defibrillator. RECOMMENDATIONS: IV antibiotics and home in the morning. Performing Organization Address City/State/Zipcode Phone Number [facility] [address] [place] [address] after 03/27/2018 (Home) [place] [address] Advance Directives Patient has advance care planning documents on file. For more information, please contact:Joseph Flores[address] [place] [address]
--- OUTSIDE RECORDS SUMMARY | 2019-03-28 18:03 | XMS REPORT ---
:1975 [facility] [address] Thakkar [address] [place] [address] Care Team Providers Name Role Phone TIMOTHY [...] Reference Range Comments HEMOGLOBIN A1C (BEAKER) (test lppt=402) 4.8 % 4.3-6.1 LIPID [id number] 08:01:00 Test Item Value Reference Range Comments TRIGLYCERIDES (BEAKER) (test skyu=647) 95 mg/dL CHOLESTEROL (BEAKER) (test lggv=183) 133 mg/dL HDL CHOLESTEROL (BEAKER) (test ywht=023) 46 mg/dL LDL CHOLESTEROL CALCULATED (BEAKER) (test 68 mg/dL ooti=350) Triglyceride Reference Range: Low Risk <150 Borderline 150- 199 High Risk 200-499 Very High Risk >=500Cholesterol Reference Range: Low Risk <200 Borderline 200-239 High Risk > 240HDL Cholesterol Reference Range: Low Risk >=60 High Risk <40LDL Cholesterol Reference Range: Optimal <100 Near Optimal 100-129 Borderline 130-159 High 160-189 Very High >=190COMPREHENSIVE METABOLIC [id number] 08:01:00 Test Item Value Reference Range Comments TOTAL PROTEIN (BEAKER) 7.1 gm/dL 6.0-8.3 (test ocfg=506) ALBUMIN (BEAKER) (test 3.8 g/dL 3.5-5.0 falo=1484) ALKALINE PHOSPHATASE 119 U/L 40-150 (BEAKER) (test folh=103) BILIRUBIN TOTAL (BEAKER) 0.7 mg/dL 0.2-1.2 (test fxhh=237) SODIUM (BEAKER) (test 139 meq/L 136-145 cdry=986) POTASSIUM (BEAKER) (test 3.5 meq/L 3.5-5.1 aooi=562) CHLORIDE (BEAKER) (test 103 meq/L 98-107 eqnw=137) CO2 (BEAKER) (test 25 meq/L 22-29 cflv=215) BLOOD UREA NITROGEN 19 mg/dL 7-21 (BEAKER) (test iyfd=601) CREATININE (BEAKER) (test 0.71 mg/dL 0.57-1.25 vmwh=468) GLUCOSE RANDOM (BEAKER) 104 mg/dL 70-105 (test hirp=289) CALCIUM (BEAKER) (test 9.6 mg/dL 8.4-10.2 hirl=096) AST (SGOT) (BEAKER) (test 28 U/L 5-34 ybeu=006) ALT (SGPT) (BEAKER) (test 30 U/L 6-55 gkpr=135) EGFR (BEAKER) (test 90 mL/min/1.73 sq m ESTIMATED GFR IS NOT mlan=6749) ACCURATE CREATININE CLEARANCE IN PREDICTING GLOMERULAR FILTRATION RATE. ESTIMATED GFR IS NOT APPLICABLE FOR DIALYSIS PATIENTS. TSH/FREE T4 IF [id number] 06:11:00 Test Item Value Reference Range Comments THYROID STIMULATING HORMONE (BEAKER) (test 2.58 uIU/mL 0.35-4.94 nvrk=271) VITAMIN B12 AND [id number] 06:11:00 Test Item Value Reference Range Comments VITAMIN B12 (BEAKER) (test flxs=973) 318 pg/mL 213-816 FOLATE (BEAKER) (test gkla=061) 16.9 ng/mL >=7.0 CBC (HEMOGRAM ONLY)2019-01-02 04:56:00 Test Item Value Reference Range Comments WHITE BLOOD CELL COUNT (BEAKER) (test gdjb=739) 6.5 K/ L 3.5-10.5 RED BLOOD CELL COUNT (BEAKER) (test hgyg=439) 4.61 M/ L 3.93-5.22 HEMOGLOBIN (BEAKER) (test ujye=585) 12.7 GM/DL 11.2-15.7 HEMATOCRIT (BEAKER) (test lero=296) 39.8 % 34.1-44.9 MEAN CORPUSCULAR VOLUME (BEAKER) (test jdmt=480) 86.3 fL 79.4-94.8 MEAN CORPUSCULAR HEMOGLOBIN (BEAKER) (test 27.5 pg 25.6-32.2 udfp=989) MEAN CORPUSCULAR HEMOGLOBIN CONC (BEAKER) (test 31.9 GM/DL 32.2-35.5 ucxi=291) RED CELL DISTRIBUTION WIDTH (BEAKER) (test 13.5 % 11.7-14.4 yryu=929) PLATELET COUNT (BEAKER) (test wwip=437) 222 K/CU MM 150-450 MEAN PLATELET VOLUME (BEAKER) (test vynl=499) 10.5 fL 9.4-12.3 NUCLEATED RED BLOOD CELLS (BEAKER) (test 0 /100 WBC 0-0 wrii=226) URINALYSIS [id number] 02:49:00 Test Item Value Reference Range Comments RBC UA (BEAKER) (test smvk=042) < /HPF WBC UA (BEAKER) (test ffmf=089) 1 /HPF MUCUS (BEAKER) (test refk=4760) Many SQUAMOUS EPITHELIAL (BEAKER) (test aref=866) 4 /HPF URINALYSIS WITH MICROSCOPIC IF [id number] 02:46:00 Test Item Value Reference Range Comments COLOR (BEAKER) (test oaqk=434) Yellow CLARITY (BEAKER) (test gybl=228) Hazy SPECIFIC GRAVITY UA (BEAKER) (test bitq=212) 1.032 1.001-1.035 PH UA (BEAKER) (test stzv=774) 5.5 5.0-8.0 PROTEIN UA (BEAKER) (test mfrn=983) 30 mg/dL Negative GLUCOSE UA (BEAKER) (test vdwj=195) Negative Negative KETONES UA (BEAKER) (test fmal=733) Trace Negative BILIRUBIN UA (BEAKER) (test ewfx=248) Negative Negative BLOOD UA (BEAKER) (test cjts=568) Negative Negative NITRITE UA (BEAKER) (test mebi=561) Negative Negative LEUKOCYTE ESTERASE UA (BEAKER) (test mbqe=585) Negative Negative UROBILINOGEN UA (BEAKER) (test wilc=911) 2.0 mg/dL 0.2-1.0 SOURCE(BEAKER) (test lvlj=2938) B-TYPE NATRIURETIC FACTOR (BNP)2019-01-01 15:41:00 Test Item Value Reference Range Comments B-TYPE NATRIURETIC PEPTIDE (BEAKER) (test huir=976) 32 pg/mL 0-100 TROPONIN [id number] 15:40:00 Test Item Value Reference Range Comments TROPONIN I (BEAKER) (test vmem=395) 0.02 ng/mL 0.00-0.03 Troponin I (TnI) levels [...] acute neurological disease, and persistent tachyarrhythmia.BASIC METABOLIC [id number] 15:39:00 Test Item Value Reference Range Comments SODIUM (BEAKER) (test 140 meq/L 136-145 egza=516) POTASSIUM (BEAKER) (test 3.8 meq/L 3.5-5.1 vysm=458) CHLORIDE (BEAKER) (test 102 meq/L 98-107 lsvm=140) CO2 (BEAKER) (test 28 meq/L 22-29 avqc=804) BLOOD UREA NITROGEN 14 mg/dL 7-21 (BEAKER) (test tkgd=966) CREATININE (BEAKER) (test 0.72 mg/dL 0.57-1.25 cngk=553) GLUCOSE RANDOM (BEAKER) 105 mg/dL 70-105 (test uxgs=045) CALCIUM (BEAKER) (test 10.3 mg/dL 8.4-10.2 tdhu=392) EGFR (BEAKER) (test mL/min/1.73 sq m INSUFFICIENT CLINICAL DATA hqxv=8704) TO CALCULATE ESTIMATED GFR. [id number] 15:33:00 Test Item Value Reference Range Comments MAGNESIUM (BEAKER) (test pzeo=006) 2.0 mg/dL 1.6-2.6 RAD, CHEST, 1 VIEW, NON [id number] 15:29:00Reason for exam:->chest painIs the patient ?->UnknownFINAL REPORT TECHNIQUE: Frontal chest radiograph dated 01/01/2019. CLINICAL HISTORY: Chest pain COMPARISON STUDY: None IMPRESSION:Left-sided, dual-chamber defibrillator is in place. No pleural effusion or pneumothorax. Cardiomediastinal silhouette is normal in size. No pulmonaryedema. No fracture. Signed: Giovanna Bennetteport Verified Date/Time: 01/01/2019 15:29:08 Reading Location: [facility] Radiology Reading Room [id number] 15:23:00 Test Item Value Reference Range Comments PROTIME (BEAKER) (test mncu=685) 13.5 seconds 11.7-14.7 INR (BEAKER) (test njya=627) 1.0 <=5.9 PARTIAL THROMBOPLASTIN TIME (BEAKER) (test 31.0 seconds 22.5-36.0 dysz=044) RECOMMENDED COUMADIN/WARFARIN INR THERAPY RANGESSTANDARD DOSE: 2.0 - 3.0 Includes: PROPHYLAXIS forvenous thrombosis, systemic embolization; TREATMENT for venous thrombosis and/or pulmonary embolus.HIGH RISK: Target INR is 2.5-3.5 for patients with mechanical heart valves. SCREEN, [id number] 15: 23:00 Test Item Value Reference Range Comments TEST URINE (BEAKER) (test skbq=819) Negative CBC W/PLT COUNT & AUTO [id number] 15:15:00 Test Item Value Reference Range Comments WHITE BLOOD CELL COUNT (BEAKER) (test fnrr=504) 9.6 K/ L 3.5-10.5 RED BLOOD CELL COUNT (BEAKER) (test oagw=720) 4.87 M/ L 3.93-5.22 HEMOGLOBIN (BEAKER) (test mqhy=496) 13.4 GM/DL 11.2-15.7 HEMATOCRIT (BEAKER) (test irtv=792) 41.1 % 34.1-44.9 MEAN CORPUSCULAR VOLUME (BEAKER) (test oerr=411) 84.4 fL 79.4-94.8 MEAN CORPUSCULAR HEMOGLOBIN (BEAKER) (test 27.5 pg 25.6-32.2 bdyi=191) MEAN CORPUSCULAR HEMOGLOBIN CONC (BEAKER) (test 32.6 GM/DL 32.2-35.5 ssyb=590) RED CELL DISTRIBUTION WIDTH (BEAKER) (test 13.2 % 11.7-14.4 fvus=193) PLATELET COUNT (BEAKER) (test emdp=674) 222 K/CU MM 150-450 MEAN PLATELET VOLUME (BEAKER) (test yiwu=917) 9.6 fL 9.4-12.3 NUCLEATED RED BLOOD CELLS (BEAKER) (test 0 /100 WBC 0-0 oxco=927) NEUTROPHILS RELATIVE PERCENT (BEAKER) (test 83 % zfem=645) LYMPHOCYTES RELATIVE PERCENT (BEAKER) (test 12 % avct=493) MONOCYTES RELATIVE PERCENT (BEAKER) (test 3 % ogjo=700) EOSINOPHILS RELATIVE PERCENT (BEAKER) (test 0 % hzrw=231) BASOPHILS RELATIVE PERCENT (BEAKER) (test 0 % ekzv=724) NEUTROPHILS ABSOLUTE COUNT (BEAKER) (test 8.03 K/ L 1.56-6.13 faha=865) LYMPHOCYTES ABSOLUTE COUNT (BEAKER) (test 1.17 K/ L 1.18-3.74 obdd=664) MONOCYTES ABSOLUTE COUNT (BEAKER) (test 0.32 K/ L 0.24-0.36 xany=437) EOSINOPHILS ABSOLUTE COUNT (BEAKER) (test 0.04 K/ L 0.04-0.36 xowu=551) BASOPHILS ABSOLUTE COUNT (BEAKER) (test 0.03 K/ L 0.01-0.08 drnp=609) IMMATURE GRANULOCYTES-RELATIVE PERCENT (BEAKER) 1 % 0-1 (test fcbr=3764) CT, BRAIN/STROKE [id number] 14:33:00Reason for exam:->NUMBNESSReason for exam:->HEADACHEIs the patient [...] recommended for further evaluation. Signed: Sara Varela [facility] Verified Date/Time: 2018 14:33:00 Reading Location: [facility] Radiology Reading Room
--- OUTSIDE RECORDS SUMMARY | 2019-03-28 18:03 | XMS REPORT | Clinical Summary ---
:1975 Author Organization [facility] Address [address] [place] [address] Care Team Providers Name Role Phone Vy [...] Take 1 tablet (10 30 tablet 0 01/03/20 01/02/ Active MG tablet mg total) by 19 [...] 01/01/2019 Orders Only General Internal Medicine after 03/27/2018 Social History Tobacco Use Types [...] 502 ms QTC Calculation(Bazett) 526 ms P [place] 18 degrees R [place] 9 degrees T [place] 15 degrees Normal sinus rhythm Cannot rule [...] DESIGN STAT 01/01/2019 2:29 PM CDT after 03/27/2018 Results EKG-SCANNED (01/05/2019 2:32 PM CDT) Narrative Performed At RHYTHM STRIP - SCAN (01/05/2019 2:32 PM CDT) Narrative Performed At Lipid panel (01/02/2019 6:12 AM CDT) Triglycerides 95 mg/dL [facility] Cholesterol 133 mg/dL [facility] HDL 46 mg/dL [facility] LDL Calculated 68 mg/dL [facility] Specimen Blood Narrative Performed At Triglyceride Reference Range: [facility] Low Risk <150 [id number] High Risk 200-499 Very High Risk>=500 Cholesterol Reference Range: Low Risk <200 [id number] High Risk>240 HDL Cholesterol Reference Range: Low Risk >=60 High Risk <40 LDL Cholesterol Reference Range: Optimal<100 Near [id number] [id number] [id number] Very High >=190 Performing Organization Address City/State/Zipcode Phone Number [facility] [address] [place] [address] CENTER Comprehensive metabolic panel (01/02/2019 6:12 AM CDT) Protein, Total 7.1 6.0 - 8.3 gm/dL [facility] Albumin 3.8 3.5 - 5.0 g/dL [facility] Alkaline Phosphatase 119 40 - 150 U/L [facility] Total Bilirubin 0.7 0.2 - 1.2 mg/dL [facility] Sodium 139 136 - 145 meq/L [facility] Potassium 3.5 3.5 - 5.1 meq/L [facility] Chloride 103 98 - 107 meq/L [facility] CO2 25 22 - 29 meq/L [facility] BUN 19 7 - 21 mg/dL [facility] Creatinine 0.71 0.57 - 1.25 mg/dL [facility] Glucose 104 70 - 105 mg/dL [facility] Calcium 9.6 8.4 - 10.2 mg/dL [facility] AST 28 5 - 34 U/L [facility] ALT 30 6 - 55 U/L [facility] EGFR 90Comment: ESTIMATED GFR mL/min/1.73 sq m [facility] IS NOT ACCURATE [facility] CREATININE CLEARANCE IN PREDICTING GLOMERULAR FILTRATION RATE. ESTIMATED GFR IS NOT APPLICABLE FOR DIALYSIS PATIENTS. Specimen Blood Performing Organization Address City/State/Zipcode Phone Number [address] [address] [place] Vitamin B12 and Folate (01/02/2019 4:07 AM CDT) Vitamin B12 318 213 - 816 pg/mL [facility] Folate 16.9 >=7.0 ng/mL [facility] Specimen Blood Performing Organization Address City/State/Zipcode Phone Number [address] [address] [place] TSH/Free T4 If Indicated (01/02/2019 4:07 AM CDT) TSH 2.58 0.35 - 4.94 uIU/mL [facility] Specimen Blood Performing Organization Address [facility] Phone Number [address] [address] [place] CBC (Hemogram only) (01/02/2019 4:07 AM CDT) WBC 6.5 3.5 - 10.5 K/L [facility] RBC 4.61 3.93 - 5.22 M/L [facility] Hemoglobin 12.7 11.2 - 15.7 GM/DL [facility] Hematocrit 39.8 34.1 - 44.9 % [facility] MCV 86.3 79.4 - 94.8 fL [facility] MCH 27.5 25.6 - 32.2 pg [facility] MCHC 31.9 (L) 32.2 - 35.5 GM/DL [facility] RDW 13.5 11.7 - 14.4 % [facility] Platelets 222 150 - 450 K/CU MM [facility] MPV 10.5 9.4 - 12.3 fL [facility] nRBC 0 0 - 0 /100 WBC [facility] Specimen Blood Performing Organization Address City/State/Zipcode Phone Number [address] [address] [place] Hemoglobin A1c (01/02/2019 4:07 AM CDT) Hemoglobin A1C 4.8 4.3 - 6.1 % [facility] Specimen Blood Performing Organization Address City/State/Zipcode Phone Number [address] [address] [place] Urinalysis Microscopic Only (01/01/2019 11:37 PM CDT) RBC, UA <1 /HPF [facility] WBC, UA 1 /HPF [facility] Mucus Many [facility] Squam Epithel, UA 4 /HPF [facility] Specimen Urine Performing Organization Address City/[facility] Phone Number [address] [address] [place] Urinalysis with Microscopic If Indicated (01/01/2019 11:37 PM CDT) Color, UA Yellow [facility] Clarity, UA Hazy [facility] Specific [place], UA 1.032 1.001 - 1.035 [facility] pH, UA 5.5 5.0 - 8.0 [facility] Protein, UA 30 mg/dL (A) Negative [facility] Glucose, UA Negative Negative [facility] Ketones, UA Trace (A) Negative [facility] Bilirubin, UA Negative Negative [facility] Blood, UA Negative Negative [facility] Nitrite, UA Negative Negative [facility] Leukocytes, UA Negative Negative [facility] Urobilinogen, UA 2.0 (H) 0.2 - 1.0 mg/dL [facility] Specimen Source [facility] Specimen Urine Performing Organization Address City/[facility] Phone Number [facility] [address] [place] [address] [phone] CENTER ECG 12 lead (01/01/2019 4:35 PM CDT) Specimen Narrative Performed At Ventricular Rate 66 BPM GE MUSE Atrial Rate 66 BPM P-R Interval 166 ms QRS Duration 86 ms Q-T Interval 502 ms QTC Calculation(Bazett) 526 ms P [place] 18 degrees R [place] 9 degrees T [place] 15 degrees Normal sinus rhythm Prolonged QT Abnormal ECG No previous ECGs available Confirmed by MD Yuan Roberto ([id number]) on 01/03/2019 5:59:19 PM Procedure Note Interface, External Ris In - 01/03/2019 5:59 PM CDT Ventricular Rate 66 BPM Atrial Rate 66 BPM P-R Interval 166 ms QRS Duration 86 ms Q-T Interval 502 ms QTC Calculation(Bazett) 526 ms P [place] 18 degrees R [place] 9 degrees T [place] 15 degrees Normal sinus rhythm Prolonged QT Abnormal ECG No previous ECGs available Confirmed by MD Yuan Roberto ([id number]) on 01/03/2019 5:59:19 PM Performing Organization Address [facility] Phone Number GE e-volo XR chest 1 view portable/bedside (01/01/2019 3:10 PM CDT) Specimen Narrative Performed At FINAL REPORT [facility] TECHNIQUE: Frontal chest radiograph dated 01/01/2019. CLINICAL HISTORY: Chest pain COMPARISON STUDY: None IMPRESSION: Left-sided, dual-chamber defibrillator is in place. No pleural effusion or pneumothorax. Cardiomediastinal silhouette is normal in size. No pulmonary edema. No fracture. Signed: Giovanna Bennett MD Report Verified Date/Time:01/01/2019 15:29:08 Reading Location: [facility] Radiology Reading Room Procedure Note Interface, External Ris In - 01/01/2019 3:31 PM CDT FINAL REPORT TECHNIQUE: Frontal chest radiograph dated 01/01/2019. CLINICAL HISTORY: Chest pain COMPARISON STUDY: None IMPRESSION: Left-sided, dual-chamber defibrillator is in place. No pleural effusion or pneumothorax. Cardiomediastinal silhouette is normal in size. No pulmonary edema. No fracture. Signed: Giovanna Bennett MD Report Verified Date/Time: 01/01/2019 15:29:08 Reading Location: [facility] Radiology Reading Room Performing Organization Address City/[facility] Phone Number GE RIS PT/aPTT (01/01/2019 3:00 PM CDT) Protime 13.5 11.7 - 14.7 seconds [facility] INR 1.0 <=5.9 [facility] PTT 31.0 22.5 - 36.0 seconds [facility] Specimen Blood Narrative Performed At RECOMMENDED COUMADIN/WARFARIN INR THERAPY [facility] RANGES STANDARD DOSE: 2.0 - 3.0 Includes: PROPHYLAXIS for venous thrombosis, systemic embolization; TREATMENT for venous thrombosis and/or pulmonary embolus. HIGH RISK: Target INR is 2.5-3.5 for patients with mechanical heart valves. Performing Organization Address [facility] Phone Number [address] [address] [phone] CENTER CBC with platelet count + automated diff (01/01/2019 3:00 PM CDT) WBC 9.6 3.5 - 10.5 K/L [facility] RBC 4.87 3.93 - 5.22 M/L [facility] Hemoglobin 13.4 11.2 - 15.7 GM/DL [facility] Hematocrit 41.1 34.1 - 44.9 % [facility] MCV 84.4 79.4 - 94.8 fL [facility] MCH 27.5 25.6 - 32.2 pg [facility] MCHC 32.6 32.2 - 35.5 GM/DL [facility] RDW 13.2 11.7 - 14.4 % [facility] Platelets 222 150 - 450 K/CU MM [facility] MPV 9.6 9.4 - 12.3 fL [facility] nRBC 0 0 - 0 /100 WBC [facility] % Neutros 83 % [facility] % Lymphs 12 % [facility] % Monos 3 % [facility] % Eos 0 % [facility] % Baso 0 % [facility] # Neutros 8.03 (H) 1.56 - 6.13 K/L [facility] # Lymphs 1.17 (L) 1.18 - 3.74 K/L [facility] # Monos 0.32 0.24 - 0.36 K/L [facility] # Eos 0.04 0.04 - 0.36 K/L [facility] # Baso 0.03 0.01 - 0.08 K/L [facility] Immature Granulocytes-Relative 1 0 - 1 % [facility] Specimen Blood Performing Organization Address City/State/Zipcode Phone Number [facility] [address] [place] [address] CENTER Troponin I (01/01/2019 3:00 PM CDT) Troponin I 0.02 0.00 - 0.03 ng/mL [facility] Specimen Blood Narrative Performed At Troponin I (TnI) levels must be interpreted [facility] in the context of the presenting symptoms [...] tachyarrhythmia. Performing Organization Address City/State/Zipcode Phone Number [address] [address] C[place] B-type Natriuretic Factor (BNP) (01/01/2019 3:00 PM CDT) BNP 32 0 - 100 pg/mL [facility] Specimen Blood Performing Organization Address [facility] Phone Number [address] [address] [phone] CENTER Magnesium (01/01/2019 3:00 PM CDT) Magnesium 2.0 1.6 - 2.6 mg/dL [facility] Specimen Blood Performing Organization Address City/[facility] Phone Number [address] [address] CENTER Basic Metabolic Panel (01/01/2019 3:00 PM CDT) Sodium 140 136 - 145 meq/L [facility] Potassium 3.8 3.5 - 5.1 meq/L [facility] Chloride 102 98 - 107 meq/L [facility] CO2 28 22 - 29 meq/L [facility] BUN 14 7 - 21 mg/dL [facility] Creatinine 0.72 0.57 - 1.25 mg/dL [facility] Glucose 105 70 - 105 mg/dL [facility] Calcium 10.3 (H) 8.4 - 10.2 mg/dL [facility] EGFR Comment: INSUFFICIENT CLINICAL mL/min/1.73 sq m [facility] DATA TO CALCULATE ESTIMATED [facility] GFR. Specimen Blood Performing Organization Address City/State/Zipcode Phone Number [facility] [address] [place] [address] [place] screen, urine (01/01/2019 2:55 PM CDT) Preg Test, Ur Negative [facility] Specimen Urine Performing Organization Address [facility]/Zipcode Phone Number [place] [phone] [place] [address] [phone] [place] [address] brain/stroke protocol (01/01/2019 2:29 PM CDT) Specimen Narrative Performed At FINAL REPORT [facility]ia RIS CT, BRAIN/STROKE PROTOCOL CLINICAL INDICATION:Focal neuro [...] MD Report Verified Date/Time:01/01/2019 14:33:00 Reading Location: [facility] Radiology Reading Room Procedure Note Interface, External [...] Report Verified Date/Time: 01/01/2019 14:33:00 Reading Location: [facility] Radiology Reading Room Performing Organization Address City/State/Zipcode Phone Number GE RIS after 03/27/2018 Insurance Payer Benefit Plan / Group Subscriber ID Type Phone Address [employer] - [employer] CARE [employer] HMO/POS/OPEN ACCESS xxxxxxxxxxx HMO/POS
[2019-03-28 19:33] LABS: Absolute Lymphocytes (CBC) 1.3 K/uL (0.7-4.9); Absolute Monocytes 0.5 K/uL (0.1-1.3); Absolute Neutrophil 3.5 K/uL (1.8-8.0); Basophils % 0.3 % (0-1.3); Hematocrit 46.1 % (36.0-45.0); Lymphocytes % 23.9 % (15.3-44.8); MPV 8.6 fL (7.6-11.3); Monocytes % 9.7 % (3.3-12.3); RBC Red Blood Cell Count 5.55 M/uL (3.86-4.86)
[2019-03-28] MEDS ORDERED: NA CHLORIDE 0.9% 1,000 ML ONE ×2 (19:34→21:25)
[2019-03-28] MEDS ORDERED: ONDANSETRON 4 MG/2 ML VIAL ONE (19:34)
[2019-03-28] MEDS ORDERED: FENTANYL CITR 100 MCG/2 ML ONE (19:34)
[2019-03-28 19:50] LABS: Albumin 4.1 g/dL (3.4-5.0); Bilirubin Direct 0.2 mg/dL (0-0.2); Bilirubin Total 0.8 mg/dL (0.2-1.0); Potassium 3.5 mmol/L (3.5-5.1); Protein, Total 8.9 g/dL (6.4-8.2)
--- NOTE | 2019-03-28 19:51 | RAD REPORT ---
EXAM DESCRIPTION: CT - Stone Protocol - 03/28/2019 7:37 pm CLINICAL HISTORY: Abdominal pain. Diarrhea COMPARISON: July 2018 TECHNIQUE: Computed axial tomography of the abdomen pelvis was obtained without oral or IV contrast. Lack of IV and oral contrast limits evaluation of solid organs, bowel, and vessels. Coronal reformat aide images were obtained and reviewed. All CT scans are performed using dose optimization technique as appropriate and may include automated exposure control or mA/KV adjustment according to patient size. FINDINGS: A renal calculus is not seen. An ureteral calculus is not noted. A bladder calculus is not present. The liver, spleen, pancreas and adrenals appear grossly normal Cholecystectomy. Small umbilical hernia contains fat. A gastric band is in place. There is no evidence of diverticulitis. The appendix appears normal IMPRESSION: Negative for a genitourinary calculus
[2019-03-28 19:53] LABS: Urine Bacteria <20 /HPF (<20); Urine Culture Reflex Order NOT NEEDED; Urine RBC <5 /HPF (NONE SEEN)
[2019-03-28 21:38] LABS: Urine Blood NEGATIVE (NEG); Urine Glucose NEGATIVE (NEG); Urine Protein 1+ (NEG); Urine Specific Gravity >1.030 (1.005-1.030)
[2019-03-28] MEDS ORDERED: DICYCLOMINE HCL 10 MG CAP ONE (21:56)
--- NOTE | 2019-03-28 22:23 | ER ---
Nurse's Notes [facility] Name: Vanessa Gonzalez Age: 43 yrs Sex: Female : 1975 Arrival Date: 03/28/2019 Time: 18:05 Bed 30 Private MD: Vy Parker Diagnosis: Colic;Volume depletion Presentation: 03/28 18:05 Presenting complaint: Patient states: Diarrhea since Friday. Has been on macrobid. Pt la1 reports RUQ pain that radiates to flank. Transition of care: patient was not received from another setting of care. Onset of symptoms was March 28, 2019. Risk Assessment: Do you want to hurt yourself or someone else? Patient reports no desire to harm self or others. Initial Sepsis Screen: Does the patient meet any 2 criteria? No. Patient's initial sepsis screen is negative. Does the patient have a suspected source of infection? No. Patient's initial sepsis screen is negative. Care prior to arrival: None. 18:05 Method Of Arrival: Ambulatory la1 18:05 Acuity: ANDREW 3 la1 Historical: - Allergies: 18:05 Ketorolac; la1 18:05 Morphine; la1 - PMHx: 18:05 Anxiety; Depression; GERD; High Cholesterol; Hypertension; Pacemaker; prolonged QT la1 interval; TIA; - PSHx: 18:09 Cholecystectomy; Hysterectomy; lap band; ; Carpal Tunnel Repair; la1 - Immunization history:: Adult Immunizations up to date. - Social history:: Smoking status: unknown. - Ebola Screening: : No symptoms or risks identified at this time. Screenin:29 Abuse screen: Denies threats or abuse. Nutritional screening: No deficits noted. la1 Tuberculosis screening: No symptoms or risk factors identified. Fall Risk None identified. Assessment: 19:28 General: Appears in no apparent distress. Behavior is calm, cooperative. Pain: la1 Complains of pain in posterior aspect of right lateral abdomen, anterior aspect of right lateral abdomen, right upper quadrant and right lower quadrant. Neuro: Level of Consciousness is awake, alert, obeys commands, Oriented to person, place, time, situation. Cardiovascular: Clubbing of nail beds is absent Patient's skin is warm and dry. Respiratory: Airway is patent Respiratory effort is even, unlabored, Respiratory pattern is regular, symmetrical. GI: Abdomen is non-distended, obese, Bowel sounds present X 4 quads. Abd is soft and non tender X 4 quads. : No signs and/or symptoms were reported regarding the genitourinary system. 20:04 Reassessment: Patient appears in no apparent distress at this time. No changes from la1 previously documented assessment. Patient and/or family updated on plan of care and expected duration. Pain level reassessed. Patient is alert, oriented x 3, equal unlabored respirations, skin warm/dry/pink. Vital Signs: 18:07 BP 152 / 84; Pulse 73; Resp 16; Temp 97.6; Pulse Ox 99% on R/A; Weight 97.07 kg (M); la1 Height 5 ft. 2 in. (157.48 cm); 20:40 BP 128 / 76; Pulse 74; Resp 16; Pulse Ox 98% on R/A; la1 21:46 BP 134 / 74; Pulse 74; Resp 16; Pulse Ox 98% on R/A; la1 18:07 Body Mass Index 39.14 (97.07 kg, 157.48 cm) la1 ED Course: 18:05 Patient arrived in ED. as 18:05 Arm band placed on left wrist. la1 18:06 Vy Parker MD is Private Physician. as 18:07 Triage completed. la1 19:01 Brittani Weber [facility]C [facility]. snw 19:01 Eliot Hair MD is Attending Physician. snw 19:10 Ricardo Rothman, MARIA R is Primary Nurse. la1 19:29 Bed in low position. Call light in reach. la1 19:29 No provider procedures requiring assistance completed. Inserted saline lock: 22 gauge la1 in right antecubital area, using aseptic technique. Blood collected. 19:37 CT Stone Protocol In Process Unspecified. EDMS 22:22 yV Parker MD is Referral Physician. snw 22:58 IV discontinued, intact, bleeding controlled, No redness/swelling at site. Pressure la1 dressing applied. Administered Medications: 19:27 Drug: NS 0.9% 1000 ml Route: IV; Rate: 1 bolus; Site: right antecubital; la1 20:04 Follow up: IV Status: Completed infusion la1 19:27 Drug: fentaNYL (PF) 25 mcg Route: IVP; Site: right antecubital; la1 20:04 Follow up: Response: No adverse reaction; Pain is decreased la1 19:29 Not Given (Patient Refused): Zofran 2 mg IVP once; over 2 minutes la1 21:17 Drug: NS 0.9% 1000 ml Route: IV; Rate: 1 bolus; Site: right antecubital; la1 22:59 Follow up: IV Status: Completed infusion la1 21:17 Drug: fentaNYL (PF) 50 mcg Route: IVP; Site: right antecubital; la1 21:46 Follow up: Response: No adverse reaction; Pain is decreased la1 22:59 Follow up: Response: No adverse reaction; Pain is decreased la1 21:46 Drug: Bentyl 20 mg Route: PO; la1 22:59 Follow up: Response: No adverse reaction la1 Outcome: 22:23 Discharge ordered by MD. wilson 22:58 Discharged to home ambulatory. la1 22:58 Condition: stable 22:58 Discharge instructions given to patient, Instructed on discharge instructions, follow up and referral plans. medication usage, Demonstrated understanding of instructions, follow-up care, medications, Prescriptions given X 1. 22:59 Patient left the ED. la1 Signatures: Dispatcher [employer] EDMS Brittani Weber, [employer]-Suha Tejeda Lee, RN RN la1
--- NOTE | 2019-03-28 22:24 | EDPHYS ---
Physician Documentation [facility] Name: Vanessa Gonzalez Age: 43 yrs Sex: Female : 1975 Arrival Date: 03/28/2019 Time: 18:05 Bed 30 Private MD: Vy Parker ED Physician Eliot Hair HPI: 03/28 20:43 This 43 yrs old Female presents to ER via Ambulatory with complaints of snw Diarrhea, Abdominal Pain, Back Pain. 20:43 The patient presents to the emergency department with nausea, diarrhea, abdominal pain, snw of the posterior aspect of right lateral abdomen. Onset: The symptoms/episode began/occurred suddenly. Possible causes: pt just finished course of macrobid, symptoms improved, pain started just post finishing meds, + diarrhea. The symptoms are aggravated by nothing. Severity of symptoms: At their worst the symptoms were moderate. It is unknown whether or not the patient has had similar symptoms in the past. The patient has been recently seen by a physician: the patient's primary care provider. denies fever. Historical: - Allergies: 18:05 Ketorolac; la1 18:05 Morphine; la1 - PMHx: 18:05 Anxiety; Depression; GERD; High Cholesterol; Hypertension; Pacemaker; prolonged QT la1 interval; TIA; - PSHx: 18:09 Cholecystectomy; Hysterectomy; lap band; ; Carpal Tunnel Repair; la1 - Immunization history:: Adult Immunizations up to date. - Social history:: Smoking status: unknown. - Ebola Screening: : No symptoms or risks identified at this time. ROS: 20:42 Constitutional: Negative for fever, chills, and weight loss, Eyes: Negative for injury, snw pain, redness, and discharge, ENT: Negative for injury, pain, and discharge, Neck: Negative for injury, pain, and swelling, Cardiovascular: Negative for chest pain, palpitations, and edema, Respiratory: Negative for shortness of breath, cough, wheezing, and pleuritic chest pain, Back: Negative for injury and pain, : Negative for injury, bleeding, discharge, and swelling, MS/Extremity: Negative for injury and deformity, Skin: Negative for injury, rash, and discoloration, Neuro: Negative for headache, weakness, numbness, tingling, and seizure. 20:42 Abdomen/GI: Positive for abdominal pain, diarrhea, right flank pain. Exam: 20:42 Constitutional: This is a well developed, well nourished patient who is awake, alert, snw and in no acute distress. Head/Face: Normocephalic, atraumatic. Eyes: Pupils equal round and reactive to light, extra-ocular motions intact. Lids and lashes normal. Conjunctiva and sclera are non-icteric and not injected. Cornea within normal limits. Periorbital areas with no swelling, redness, or edema. ENT: Nares patent. No nasal discharge, no septal abnormalities noted. Tympanic membranes are normal and external auditory canals are clear. Oropharynx with no redness, swelling, or masses, exudates, or evidence of obstruction, uvula midline. Mucous membranes moist. Neck: Trachea midline, no thyromegaly or masses palpated, and no cervical lymphadenopathy. Supple, full range of motion without nuchal rigidity, or vertebral point tenderness. No Meningismus. Chest/axilla: Normal chest wall appearance and motion. Nontender with no deformity. No lesions are appreciated. Cardiovascular: Regular rate and rhythm with a normal S1 and S2. No gallops, murmurs, or rubs. Normal PMI, no JVD. No pulse deficits. Respiratory: Lungs have equal breath sounds bilaterally, clear to auscultation and percussion. No rales, rhonchi or wheezes noted. No increased work of breathing, no retractions or nasal flaring. Abdomen/GI: Soft, non-tender, with normal bowel sounds. No distension or tympany. No guarding or rebound. No evidence of tenderness throughout. Back: No spinal tenderness. No costovertebral tenderness. Full range of motion. Skin: Warm, dry with normal turgor. Normal color with no rashes, no lesions, and no evidence of cellulitis. MS/ Extremity: Pulses equal, no cyanosis. Neurovascular intact. Full, normal range of motion. Neuro: Awake and alert, GCS 15, oriented to person, place, time, and situation. Cranial nerves II-XII grossly intact. Motor strength 5/5 in all extremities. Sensory grossly intact. Cerebellar exam normal. Normal gait. Vital Signs: 18:07 BP 152 / 84; Pulse 73; Resp 16; Temp 97.6; Pulse Ox 99% on R/A; Weight 97.07 kg (M); la1 Height 5 ft. 2 in. (157.48 cm); 20:40 BP 128 / 76; Pulse 74; Resp 16; Pulse Ox 98% on R/A; la1 21:46 BP 134 / 74; Pulse 74; Resp 16; Pulse Ox 98% on R/A; la1 18:07 Body Mass Index 39.14 (97.07 kg, 157.48 cm) la1 MDM: 19:03 Patient medically screened. snw 21:39 Data reviewed: vital signs, nurses notes. Data interpreted: Pulse oximetry: on room air snw is 98 %. Interpretation: normal. Counseling: I had a detailed discussion with the patient and/or guardian regarding: the historical points, exam findings, and any diagnostic results supporting the discharge/admit diagnosis, lab results, radiology results, the need for outpatient follow up, to return to the emergency department if symptoms worsen or persist or if there are any questions or concerns that arise at home. Response to treatment: There is no appreciated change of the patient's symptoms at this time, pain still the same. Awaiting: IVF. 03/28 19:08 Order name: Basic Metabolic Panel [facility] 03/28 19:08 Order name: CBC with Diff; Complete Time: 19:42 snw 03/28 19:08 Order name: Hepatic Function; Complete Time: 19:51 snw 03/28 19:08 Order name: Lipase; Complete Time: 19:51 snw 03/28 19:08 Order name: Urine Culture [facility] 03/28 19:08 Order name: Urine Microscopic Only; Complete Time: 19:58 snw 03/28 19:02 Order name: CT Stone Protocol; Complete Time: 19:58 snw 03/28 19:10 Order name: Basic Metabolic Panel; Complete Time: 19:51 EDMS 03/28 21:00 Order name: Add On-Lab snw 03/28 21:09 Order name: Urine Dipstick--Ancillary (enter results); Complete Time: 21:39 ar5 03/28 19:08 Order name: IV Saline Lock; Complete Time: 19:30 snw 03/28 19:08 Order name: Labs collected and sent; Complete Time: 19:30 snw 03/28 19:08 Order name: Urine Test (obtain specimen); Complete Time: 19:32 snw 03/28 19:08 Order name: Urine Dipstick-Ancillary (obtain specimen); Complete Time: 19:32 snw Administered Medications: 19:27 Drug: NS 0.9% 1000 ml Route: IV; Rate: 1 bolus; Site: right antecubital; la1 20:04 Follow up: IV Status: Completed infusion la1 19:27 Drug: fentaNYL (PF) 25 mcg Route: IVP; Site: right antecubital; la1 20:04 Follow up: Response: No adverse reaction; Pain is decreased la1 19:29 Not Given (Patient Refused): Zofran 2 mg IVP once; over 2 minutes la1 21:17 Drug: NS 0.9% 1000 ml Route: IV; Rate: 1 bolus; Site: right antecubital; la1 22:59 Follow up: IV Status: Completed infusion la1 21:17 Drug: fentaNYL (PF) 50 mcg Route: IVP; Site: right antecubital; la1 21:46 Follow up: Response: No adverse reaction; Pain is decreased la1 22:59 Follow up: Response: No adverse reaction; Pain is decreased la1 21:46 Drug: Bentyl 20 mg Route: PO; la1 22:59 Follow up: Response: No adverse reaction la1 Disposition: 03/29 07:27 Co-signature as Attending Physician, Eliot Hair MD I agree with the assessment and madyson plan of care. Disposition: 03/28/19 22:23 Discharged to Home. Impression: Colic, Volume depletion. - Condition is Stable. - Discharge Instructions: Biliary Colic, Adult, Dehydration, Adult, Rehydration, Adult. - Prescriptions for Bentyl 20 mg Oral Tablet - take 1 tablet by ORAL route every 6 hours As needed; 20 tablet. - Medication Reconciliation Form, Thank You Letter, Antibiotic Education, Prescription Opioid Use, Work release form form. - Follow up: Vy Parker MD; When: 1 - 2 days; Reason: Recheck today's complaints, Continuance of care, Re-evaluation by your physician. Follow up: Emergency Department; When: As needed; Reason: Worsening of condition. Signatures: Dispatcher [employer] Eliot Maravilla MD MD cha Therrien, Shelly, WRAPPER [employer]ER [employer] EX[employer]ER [employer]-C [employer]-Csnw Ricardo Rothman RN RN la1 Corrections: (The following items were deleted from the chart) 03/28 22:59 22:23 03/28/2019 22:23 Discharged to Home. Impression: Colic; Volume depletion. la1 Condition is Stable. Forms are Medication Reconciliation Form, Thank You Letter, Antibiotic Education, Prescription Opioid Use. Follow up: Vy Parker; When: 1 - 2 days; Reason: Recheck today's complaints, Continuance of care, Re-evaluation by your physician. Follow up: Emergency Department; When: As needed; Reason: Worsening of condition. snw
[2019-03-28 23:37] VITALS: TEMP 97.6
[2019-03-28 23:38] VITALS: O2SAT 98
[2019-03-28 23:39] VITALS: BP 134/74
== END 2019-03-28 22:59 | disposition home or self-care (01) ==
LOC: ER 17:59
DX: E86.9 Volume depletion, unspecified (principal); R10.84 Generalized abdominal pain; I10 Essential (primary) hypertension; Z88.5 Allergy status to narcotic agent; Z88.8 Allergy status to other drugs, medicaments and biological substances; Z95.0 Presence of cardiac pacemaker
CPT/HCPCS: 36415; 74176; 76377; 80048; 80076; 81003; 81015; 83690; 85025; 87086; 87088; 96361; 96374; 99284; J2405; J3010; J7030

== ENCOUNTER 2020-03-22 12:25 | Emergency (ER) | payer OTHER ==
--- OUTSIDE RECORDS SUMMARY | 2020-03-22 12:32 | XMS REPORT | Clinical Summary ---
:1975 Author Organization [facility] Address [address] [place] [address] Care Team Providers Name Role Phone Alison Parker DO Primary Care Provider Allergies Active Allergy Reactions Severity Noted Date Comments Morphine 01/01/2019 Sob Ketorolac Shortness Of Breath High 01/01/2019 Rash Medications Medication Sig Dispensed Refills Start Date End Date Status evolocumab Inject 140 mg 0 Activ e (REPATHA subcutaneously SYRINGE) 140 every 14 (fourteen) mg/mL days . SyrgIndications: high cholesterol nebivolol Take 5 mg by mouth 0 A ctive (BYSTOLIC) 5 MG daily. tablet ALPRAZolam Take 0.5 mg by 0 Acti ve (XANAX XR) 0.5 mouth every MG 24 hr tablet morning. topiramate Take 25 mg by mouth 0 Active (QUDEXY XR) 25 daily. mg CSpX metoprolol Take 25 mg by mouth 0 Discontinued (LOPRESSOR) 25 2 (two) times 9 MG daily. tabletIndication s: high blood pressure amLODIPine Take 1 tablet (10 30 tablet 0 01/03/2019 Discontinued (NORVASC) 10 MG mg total) by mouth 9 tablet daily. Active Problems Problem Noted Date Morbid obesity 07/23/2019 TIA (transient ischemic attack) 01/01/2019 Encounters Date Type Specialty Care Team Description 08/26/2019 Hospital Radiology Galvani, Bariatric surge ry status; Encounter Darian Luciano MD Abdominal pain, LUQ; Gastroesophagea l reflux disease, esophagitis presence not specified; Pre-operative c learance 08/26/2019 Outside Orders Central Scheduling Ang, [facility] surgery status (Primary Dx); Darian Luciano MD Abdominal pain, LUQ; Gastroesophagea l reflux disease, esophagitis presence not specified; Pre-operative c learance 07/29/2019 Surgery Gastroenterology Maya Knowles MOTILITY MD Tian 07/29/2019 [facility] Gastroenterology Maya Knowles Encounter MD Tian 07/23/2019 Anesthesia Event Gastroenterology Concha Andrews, ARA 07/23/2019 Surgery Gastroenterology Ang, UPPER ENDOS COPY,BIOPSY Darian Luciano MD 07/23/2019 [facility] Gastroenterology Ang, Encounter Darian Luciano MD 07/21/2019 Hospital Pre-Admission Testing Encounter after 03/22/2019 Social History Tobacco Use Types Packs/Day Years Used Date Never Smoker Smokeless Tobacco: Never Used Alcohol Use Drinks/Week oz/Week Comments No Alcohol Habits Answer Date Recorded How often do you have a drink containing alcohol? Never 07/21/2019 How many drinks containing alcohol do you have on a typical Not asked day when you are drinking? How often do you have six or more drinks on one occasion? No t asked Sex Assigned at Date Recorded Not on file Job Start Date Occupation Industry Not on file Not on file Not on file Travel History Travel Start Travel End No recent travel history available. Last Filed Vital Signs Vital Sign Reading Time Taken Blood Pressure 162/102 07/29/2019 3:38 PM CDT Pulse 62 07/29/2019 3:38 PM CDT Temperature 36.3 C (97.4 F) 07/29/2019 3:38 PM CDT Respiratory Rate 18 07/29/2019 3:38 PM CDT Oxygen Saturation 100% 07/29/2019 3:38 PM CDT Inhaled Oxygen Concentration - - Weight 103.3 kg (227 lb 12.8 oz) 07/23/2019 6: 11 AM CDT Height 157.5 cm (5' 2") 07/23/2019 6:11 AM CDT Body Mass Index 41.67 07/23/2019 6:11 AM CDT Plan of Treatment Date Type Specialty Care Team Description 04/18/2020 Appointment Pre-Admission Testing 04/26/2020 Hospital Encounter Plasencia-Dana Li MD 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 reflux disease, esophagitis presence not specified Pre-operative clearance MOTILITY 07/29/2019 3:00 PM Esophageal d yskinesia CDT Pre-op exam Dysphagia, unspecified type Gastroesophageal reflux disease, esophagitis presence not specified Chronic cough Special Needs (PATIENT REQUEST THIS TIME) REPORT OF 07/23/2019 7:31 AM PROCEDURE - CDT ENDOSCOPY URL TISSUE EXAM AP Routine 07/23/2019 7:22 AM Results for this CDT procedure are i n the results section. UPPER 07/23/2019 7:00 AM Status post ENDOSCOPY,BIOPSY CDT bariatric surge ry Gastroesophageal reflux disease, esophagitis presence not specified after 03/22/2019 Results XR chest 2 views (08/26/2019 2:40 PM FREELANCE 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 Dual lead left subcla vian ICD. Lungs clear and vascularity normal. Signed: Jc Tobar MD Report Verified Date/Time:08/26/2019 15:35:48 Reading Location: [facility] Reading Room - [facility] F1 1.310.12 Procedure Note Interface, External Ris In - 08/26/2019 3:38 PM FREELANCE OPERATOR FINAL REPORT History provided: Bariatric surgery, abd ominal pain CHEST PA AND LATERAL COMPARISON STUDY: 01/01/2019 Heart size normal. Dual lead left subcla vian ICD. Lungs clear and vascularity normal. Signed: Jc Tobar MD Report Verified Date/Time: 08/26/2019 1 5:35:48 [facility] F1 1.310.12 Performing Organization Address City/State/Zipcode Phone Number GE RIS REPORT OF PROCEDURE - ENDOSCOPY URL (07/23/2019 7:31 AM CDT) Narrative Performed At This result has an attachment that is no t available. Tissue Exam (07/23/2019 7:22 AM CDT) Case Report Surgical Pathology Report Case: [id number] [facility] Authorizing Provider:Darian Quigley MDCollected: 07/23/2019 0722 [facility] Ordering Location: [facility] Endoscopy Received:07/23/2019 1333 Services Pathologist: Lea Santillan MD Specimens: A) - Biopsy, Gastric, r/o H. Pylori B) - Biopsy, Esophagus, at 36cm r/o Nicholson's Esophagus DIAGNOSIS A. STOMACH, RANDOM BIOPSIES: [facility] - CHRONIC INACTIVE GASTRITIS B [facility] - NEGATIVE FOR HELICOBACTER PYLORI ORGANISMS B Y WARTHIN STARRY STAIN - NEGATIVE FOR INTESTINAL METAPLASIA, DYSPLASI A, MALIGNANCY B. ESOPHAGUS, 36 CM, BIOPSY: - JUNCTIONAL MUCOSA WITH REFLUX ESOPHAGITIS - NEGATIVE FOR INTESTINAL METAPLASIA, DYSPLASI A, MALIGNANCY Signing Pathologist Direct Phone Line: [phone] CPT Code(s) 73956A6 [facility] ALTH [address] [facility] ER SPECIMEN SOURCE A. Biopsy gastric, description C [facility] rule out H. Pylori. Biopsy [facility] esophagus, description at 36, rule out Nicholson's esophagus GROSS DESCRIPTION Specimen A. Received fixativ e in a container labeled with the patient's demographic information and surgical accession number are two fragments 0.4 x 0.2 x 0.1 cm in aggregate submitted in block A1. [facility] ER Specimen B. Received fixativ e in a container labeled with the patient's demographic information and surgical accession number is one fragment 0.3 x 0.1 x 0.1 submitted in block B1. HL/ew SPECIAL STUDIES The interpretation of this c ase included the use of immunohistochemistry or special stains. [facility] ER Control Slides Examined: In -house known positive controls were evaluated along with the test tissue. These control slides run alongside of the patients sample show appropriate staining. Internal posit brian and negative controls when available are joselin kulkarni Immunohistochemistry johnson ralph testing was performed at [facility], Pathology Laboratory where it was developed and its performance characteristics were determined. It has not be en cleared or approved by [facility] U.S. Food and Drug Administration. The FDA has determined that such clearance or approval is not necessary. The test is used for clinical purposes. It should not be regarde d as investigational or for research. This laboratory is certified under the Clinical Laboratory Improvement Amendments of 1988 (CLIA-88) as qualified to perform high complexity clinical laboratory testing. Specimen Tissue Tissue - Biopsy, Esophagus Performing Organization Address City/State/[facility] Phone Number [facility] [address] [place] [phone] CENTER after 03/22/2019 Insurance Payer Benefit Plan / Group Subscriber ID Type Phone A ddress CIGNA - MGD CARE CIGNA HMO/POS/OPEN ACCESS xxxxxxxxxxx HMO/POS Advance Directives For more information, please contact:[address] [phone] Code Status Date Activated Date Inactivated Comments Full Code 07/23/2019 5:59 AM 07/23/2019 10:56 AM This code status was determined by: Patient
--- OUTSIDE RECORDS SUMMARY | 2020-03-22 12:32 | XMS REPORT | Clinical Summary ---
:1975 Author Organization [facility] Address [address] [place] [id number] Care Team Providers Name Role Phone Asked, Pcp Primary Care Provider Unavailable Allergies Active Allergy Reactions Severity Noted Date Comments Morphine 10/28/2018 SOB, vomit, low BP Ketorolac Anaphylaxis High 10/28/2018 Medications Medication Sig Dispensed Refills Start Date End Date Status amLODIPine (NORVASC) 5 Take 2.5 mg by 0 Active mg tablet mouth daily. evolocumab (REPATHA Inject 140 mg 0 Active SURECLICK) 140 mg/mL under the skin pen injector injection every 14 (fourteen) days. ALPRAZolam (XANAX) 0.5 Take 0.5 mg by 0 Active MG tablet mouth nightly as needed for anxiety. coenzyme Q10 (COQ-10) Take 100 mg by 0 Active 100 mg capsule mouth daily. 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 Last Filed Vital Signs Not on file Plan of Treatment Health Maintenance Due Date Last Done Comments CERVICAL CANCER SCREENING 1997 INFLUENZA VACCINE 05/13/2020 Implants Implanted Type Area Parts Clerk Plant Maintenance Device Shelf Model / Identifier Expiration Serial / Date Lot Joshuaquinton Guerra - [id number] - [id number] Cardiac N/A: LAZARA LEI 01/25/2020 [id number] / Implanted: Qty: 1 on 10/28/2018 by Yogesh Contreras Jr., M D at [facility] Pacemaker N/A [employer] [id number] / Generators [id number] S Lead [id number] Active Sc Sprint 55 Cm - [id number] Cardiac Pac ing N/A: [employer] CRM 07/10/2020 [id number] / Implanted: 10/28/2018 at [facility] (Quantity not on file) Manju ds or N/A [employer] [id number] / Electrodes or [id number] Accessories Lead, Bipolar Active Fixation Atrial Zohaib roid Eluting 45 Cm Capsure Fix Novus System - [id number] Cardiac Pacing N/A: [employer] [facility] [id number] / Implanted: 10/28/2018 at [facility] (Quantity not on file) Manju ds or N/A [employer] 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
--- OUTSIDE RECORDS SUMMARY | 2020-03-22 12:33 | XMS REPORT | Continuity of Care Document ---
:1975 Author Organization [facility] t Address [address] [place] [address] Care Team Providers Name Role Phone Asked, Pcp Primary Care Physician Unavailable Nilda Saxena MD Attending Clinician Ang THOMPSON, Mustapha Attending Clinician Tian Knowles MD Attending Clinician Mustapha FRY Attending Clinician Unavailable Aparna Andrews CRNA Attending Clinician Candida GARCIA Attending Clinician Unavailable Ang THOMPSON Attending Clinician CECIL ROSARIO Attending Clinician Unavailable Mustapha FRY Admitting Clinician Unavailable RIA Admitting Clinician Unavailable Payers Payer Name Policy Type Policy Number Effective Date Expiration Date Rose olsen CIGNA - MGD xxxxxxxxxxx [facility] [employer] - Medical HMO/POS/OPEN Center ACCESSxxxxxxxxx xxHMO/POS Problems Condition Condition Condition Status Onset Resolution Last Treating Co mments Source Name Details Category Date Date Treatment Clinician Date Morbid Morbid Disease Active 2018-[address] [facility] obesity obesity 0-11 [facility] Center TIA TIA Disease Active [facility] (transient (transient 3-22 Shyanne kes - ischemic ischemic 00:00: Medica l attack) attack) 00 Center 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 10-28 [facility] 00:[facility]: st 00 Allergies, Adverse Reactions, Alerts Allergy Allergy Status Severity Reaction(s) Onset Inactive Treating Comm ents Source Name Type Date Date Clinician Morphine Propensi Active Sob [facility]-01 [facility] - adverse 00:00: Medical reaction 00 Center s Ketorola Propensi Active Shortness Of Rash [facility] ty to Breath 01-01 [facility] - adverse 00:00: Medical reaction 00 Center s Morphine Propensi Active SOB, [place] ty to 10-28 vomit, [facility] adverse 00:00: low BP st reaction 00 s to drug Ketorola Propensi Active Anaphylaxis [place] ty to 10-28 [facility] adverse 00:00: st reaction 00 s to drug Social History Social Habit Start Date Stop Date Quantity Comments Source History SDOH Alcohol [facility] Std Drinks [facility] History OHOH Alcohol [facility] Binge [facility] Sex Assigned At [facility] History SDOH Alcohol 2019-07-21 2019-07-[address] [facility] - Frequency 00:00:00 00:00:00 [facility] Smoking Status Start Date Stop Date Source Never smoker [place] [facility] Medications Ordered Filled Start Stop Current Ordering Indication Dosage Frequency Signature Comments Components Source Medication Medication Date Date Medication? Clinician (SIG) Name Name topiramate 2018-10 Yes 25mg QD Take [address] (QUDEXY XR) 0-09 by mouth [facility] - 25 mg CSpX 13:51: daily. Medic al 07 Center ALPRAZolam 2018-10 Yes .5mg QD Take 0.[address] [facility] (XANAX XR) 0-09 mg by [facility] - 0.5 MG 24 13:49: mouth Medical hr tablet 43 every Center morning. metoprolol 2018-10 2019 high blood 25mg Q.5D Take [address] (LOPRESSOR) 0-09 10-09 pressure by mouth 2 [facility] - 25 MG 13:49: 00:00 (two) Medical tablet 42 :00 times Center daily. evolocumab 2018-10 Yes high 140mg Q14D Inject [address] [address] (REPATHA 0-09 cholesterol mg Luke [facility] - SYRINGE) 13:48: subcutaneo Med ical 140 mg/mL 54 usly every Cent er Syrg 14 (fourteen) days . nebivolol 2019 Yes 5mg QD Take [address] [facility] (BYSTOLIC) 0-09 by mouth [facility] - 5 MG tablet 13:48: daily. Medi rah 54 Center amLODIPine 2019- No 10mg QD Take [address] [facility] (NORVASC) 3-24 10-09 tablet (10 Virgen es - 10 MG 00:00: 00:00 mg total) Medica l tablet 00 :00 by mouth Center daily. amLODIPine Yes 2.5mg QD Take 2.5 [place] (NORVASC) 5 1-17 mg by [facility] mg tablet 09:52: mouth st 05 daily. evolocumab Yes 140mg Q14D Inject 140 [facility] (REPATHA 1-17 mg under [facility] SURECLICK) 09:52: the skin st 140 mg/mL 05 every 14 pen (fourteen) injector days. injection ALPRAZolam Yes .5mg QD Take 0.5 [facility] (XANAX) 0.5 1-17 mg by [facility] MG tablet 09:52: mouth st 05 nightly as needed for anxiety. coenzyme Yes 100mg QD Take 100 [place] Q10 1-17 mg by [facility] (COQ-10) 09:52: mouth st 100 mg 05 daily. capsule Vital Signs Vital Name Observation Time Observation Value Comments Source Systolic blood 2019-07-29 15:38:00 162 mm[Hg] [facility] Diastolic blood 2019-07-29 15:38:00 102 mm[Hg] [facility] Heart rate 2019-07-29 15:38:00 62 /min [facility] Body temperature 2019-07-29 15:38:00 36.33 Jessica [facility] Respiratory rate 2019-07-29 15:38:00 18 /min [facility] Oxygen saturation in 2019-07-29 15:38:00 100 /min [facility] Arterial blood by Medical Ce nter Pulse oximetry Body height 2019-07-23 06:11:00 157.5 cm [facility] Body weight Measured 2019-07-23 06:11:00 103.329 kg [facility] BMI 2019-07-23 06:11:00 41.67 kg/m2 [facility] Procedures Procedure Date / Time Performed Performing Clinician Deepti e XR CHEST 2 VIEWS 2019-08-26 14:40:00 Darian Fry [facility] MOTILITY 2019-07-29 15:00:00 Maya Knowles [facility] REPORT OF PROCEDURE - 2019-07-23 07:31:40 Darian Fry [facility] ENDOSCOPY [facility] TISSUE EXAM 2019-07-23 07:22:00 Darian Fry [facility] UPPER ENDOSCOPY,BIOPSY 2019-07-23 07:00:00 Darian Fry [facility] Plan of Care Planned Activity Planned Date Details Comments Source Future Scheduled Test 2020-05-13 INFLUENZA VACCINE [place] [facility] 00:00:00 [code = INFLUENZA VACCINE] Future Scheduled Test 1997 Screening for [place] [facility] 00:00:00 malignant neoplasm of cervix (procedure) [code = 990601116] Future Appointment 2020-04-26 [facility] - 08:00:00 Hemanth THOMPSON, Medical Ce nter [address] 8[address], [place] [address] Encounters Start End Encounter Admission Attending Care Care Encounter Source Date/Time Date/Time Type Type Clinicians Facility Department ID 2019-12-02 2019-12-02 Office Allyn DIAZ [id number] 10:01:30 12:40:44 Visit Dana james AMBULATOR [id number] G Y [id number] [id number] 2019-07-16 2019-07-16 Office EMILY Tirado [id number] 21 13:41:03 15:14:00 Visit [place] AMBULATOR [id number] Y [id number] [id number] 2019-06-16 2019-06-16 Office EMILY Tirado [id number] 10:26:53 13:08:19 Visit [place] AMBULATOR 350.1.13.21 Y 0.2.7.2.686 [id number] 2019-05-12 2019-05-12 Office Kaceyclary EMILY [id number] 12:57:08 15:12:24 Visit Darian AMBULATOR [id number] Y [id number] [id number] Results Test Description Test Test Comments Results Result [facility] e Time Comments RAD, CHEST, 2 2019-08- Reason for FINAL REPORT VIEWS 14 Exam:->bariatric PATIENT ID: 15:35:00 surgery status; [id number] History abdominal pain,LUQ, provided: Gastroesophageal Bariatric surgery, reflux abdominal pain disease,esophagitis CHEST PA AND presence not LATERAL COMPARISON specificied, STUDY: 01/01/2019 pre-operative Heart size normal. clearance Dual lead left subclavian ICD. Lungs clear and vascularity normal. Signed: Jc Tobar Verified Date/Time: 08/26/2019 15:35:48 Reading Location: [facility] Diagnostic Imaging Reading Room - [facility] F1 1.310.12 chest 2 views 2019-08- Interface, [facility] St 14 External Ris In - [facility] - 15:35:00 08/26/2019 3:38 Medical PM CSTFINAL REPORT Center History provided: Bariatric surgery, abdominal pain CHEST PA AND LATERAL COMPARISON STUDY: 01/01/2019 Heart size normal. Dual lead left subclavian ICD. Lungs clear and vascularity normal. Signed: Jc Tobar Verified Date/Time: 08/26/2019 15:35:48 Reading Location: [facility] Diagnostic Imaging Reading Room - [facility] F1 1.310.12 Tissue Exam 2019-07-27 09:50:00 Test Item Value Reference Range Interpretation Comme nts Case Report (test code = 104) Surgical Pathology Report Case: [id number] Authorizing Provider: Darian Fry MD Collected: 07/23/2019 0722 Ordering Location: [facility] Endoscopy Received: 07/23/2019 1333 Services Pathologist: Lea Santillan MD Specimens: A) - Biopsy, Gastric, r/o H. Pylori B) - Biopsy, Esophagus, at 36cm r/o Nicholson's Esophagus DIAGNOSIS (test code = 3220) [id number]pVwVwLp pcdW EqRYdbwpNhNYtcy4LqX4ObIwDbYHgfiuNwFSBeOmje ojkkKJFtXRK3ddXtJQIlEWnaAGErKYhgRp2lwCUovT wzQgOgOVRyb4xhelAKfpmpwHl7c8bkXZUuGxU6oJFx KDrjO3efuoAtlOOvMIOwSYe8qY52VDAfqO5xaFXdCD ljhpHtOMpzirQuajUyGhw8WCKgX6kjDYJcMKPhB5Pa PB5jCWIzSra1NYJ2HCK5jNrtr4X0hDFdqFQtzKcuYn RnNlFzEBLMf0QoOVb2pVgfY1GoHLWcOjH2bXElKGQq IJbmNDWhSDRzmdP4nX99LXujolC1iHJkr0Xks65ze8 56vU4hhPNlNLJ0ILBxQVPjgECzMKOmCRH8UJMoaUNs G9t0QcJeaMMfW4L7ByGbgNFuF7F2WwOthMMmA0C8Cd UumKJuKBXpuVFmAz7lxJAycRGyej1fve15DGJ2i7Nh xOtjRRK0NMI0EfAcIv7seIVmHCHvNF6sRfVjdWPyMM Ilax05kJcfRCegcqXebR9wPnMsFF6clWwpt46iBXZf OR3ofE7caf8xxuOcOTlflIWirKC8ehqdFCC0QIAqul Yag3Kob5vmAhMwddErY3euU0KuQKLsTGImSMKtBzVa txSwo4Ksu8DykRMopXu9m0svVXXvRMYseYpdj9vpJB V2BZZnG7M8mPPzp5mhWAplCHEjnBM5lzweDAjqGAAt mbD0ufviIMxlOVIjtUJ1ifywJJtyQDNuQrR5puvbVU zvGGTtWIC0UAxlq941PQD6NMorDciiIGqcVHFfdmVg bnRccGduZGVjXHBsYWluXHBsYWluXGYwXGZzMjBccG YbHCrwa1CegbMlrCupMYKzSWl2ffWhwzdssIh5cFOj yIpnQQQwxWgzmW8eRjNeCzXyVHepjYIzbyebLSafkq IwIEEuIFxwbGFpblxmMVxmczIwXGxhbmcxMDMzXGhp E7gtJkNePJTwaZwaICqty9PnEXWxDVMpSOvxhfAsOK y5cdXqHMMCE86ZE6elZXerqRPhmcveJJogwmDkKEEW RcVTLBPteXtcvY4hLzZlZoVkOQobVN1eBYHqD9cptV CrXKAlBYSpI6tiNkDttI1zwVwjHJhvMlHjTnIkQIov qFHxwSHPKF8YY4rbwRDtacfiLAhfjmWsUIuXH3vwnG HyyyvkDPnkitCrXKwgfoqzKMNhEQycU2ieRnMzFFNe nNlbPEwxt3BrBPXnDMUrUZslzlYzIPo3ksOtPBjvdE FyXHBsYWluXGYxXGZzMjAgIFxwbGFpblxmMVxmczIw GBvcimvqYAOdGAqlX9mfYuAqOFAgfHkqXEvnw6ImPM MrFFDxARzquuMgREq1qrOaPN8ihJzarX1mHxMyMsGu MCAgXHBsYWluXGYxXGZzMjBcbGFuZzEwMzNcaGljaF kpTMfqLdAnHEXxMHmqS9xgAjLpI1QfWAWpMwPxzNEy L2pxDQNQOw5WARVyJC1AK6MPWxGeO3ZFPKTLYOgREI DlGEioAIFcOJUnCjHamEJpUZPwbAyylX7eSiXsTmDi NVuaAN8cDKUdW9cgqEAxCCEwZVStH9ykGaNztZ0yzD xmMVxjZjFcZnMyMFxsdHJjaCAtXHBsYWluXGYxXGZz MjAgIFxwbGFpblxmMVxmczIwXGxhbmcxMDMzXGhpY2 vgDjNsXTLabOamENhfr7ZsZEZjHEBkDZbgymRnPLn8 yhWsCPWVOWeAXLnSVMYYD1MsCFIUJOLNQiKAPTVTPI DLTZ9BLMIYGqrUKffGJRGaKpjpI4IFYXpLUpSEEYUX HrxmI8HBOP0dkFNqJFDrnhSwa7TmSXKnCKS7SJnqNH xxbFxwbGFpblxmMFxmczIwXHBsYWluXGYxXGZzMjAg BJjerHBlmhlzOFrjofTqSXnniherZGWyYFvzE5rxWj WhXZRfbUlzDKmcg6CjGDGwBOHsGXuhzcPmCSj5eyPf EB4pzOiugT5hXvWpOwRsKHFbIWMvWWwaQLAvTPPcAf UapDQaSmKcOmZghOgsyPgaRXdpWfItOGUkKXgyO5xf TpRdX6CsJSViNyLjpLEvM8jbDH9ZT3JWDOELITNPCq KMIgTAC9ECTtJKAG3CZVIWLTKMLFHbYSPMD2MSOOJI TIdaMGLOSNoXNJ0DYRsbnKQpshlgZXcwssTwXDKtbn bbVFWsEw3qWCDFODyQH2SUPZDkVpDOCJbbMmkDAUSK OtkrBQLfaYSeZSvyj7IyvqAwkAvtJPIeFWs4dsLxcw qvsTx8dMVbtUljMTIlkEdmeA9fTcPeCrOuKWsqnFOd upakYXsxsqBnEXbabtboNAVgFGzjG7yhSgYtXAVfqV ypOZbbb8AbGBNrPXAsSHrubpVaPEp2mkOxRQRvCIsd oJVqpwhmQMbeniFmKQYvrNydiR3oYwBmWzPcUDnrPY 7aSDZmA4zlqINwYSShASWoM0xkPsJacY1qkGpdVYxf QqZnTmUkUOtdiETrsAVITZ4TKEbNGrPTYP3OX43BLS AQBVVVBZsyoKDfczylDLwmpqFaIRYDQmjWWUPQP85H LQJBUBQQV8daKERngIIxSFwdpQDugdhpPFgkjaFvVS BsYWluXGYxXGZzMjAgIFxwbGFpblxmMVxmczIwXGxh trluGXXgLOmhX5vkMzSjFOXumXdbBTuqs2WnWSPwRB ApWWxgwfOkFJh5ezMgZR1xzTounZ8qQzBiYsMoEKUu XHBsYWluXGYxXGZzMjBcbGFuZzEwMzNcaGljaFxmMV gyHyCnRXYyANgkK5enIiZcO8AhSRIkNzOdmHAsW7ac NP5DM3VTSUYSFHJUIiRAGnSYW9TIFmFUGU1EKRDKRD ENFOJeIHPJI6YDAEHQARvcMEWYAJbXLB4ILSabzUFr umzkFLvmrvLnRGJtdm12UPP8JoEzw1H8LAT7TBQtAS Hrl8akIEAmfAPdIcBwQhZlLnJaTsieoVRqZHGaFnCt l2yoa403nHZpu8agTSHpHlU3iFHyZGVawWCtF550KN SjABrzt0flr4DrOUKvyTLeb2E6IACHgniqxWg9pIun S49dc4G0JghqH0zhSDOrRUYdV8BtKT6bNFZqSqc0UQ T4XLW8PGTlEHBgA4SmAT3eUAPltKNlUVl2z1ybhOut LUZeDUT2t2tvFOfbhrGbQE1iha8gcLw5z4bgdxPrUR MdIZAbuPFMHDXzH2OvhZdlVj0mrJl7zIdzYfqvJDD1 Zlq6XY4azb40kko1lQjeVNUexdifUcX0FCjsCYJqgh jmGYu6FKjtUSCxoRS3UIVcjLCvY2BvWQDeYI4geyk1 MLU6SQnqDWDbCbB9OCTikDGoESGwnDjhZGphy378NN F1QjSjVD8wY1Ryg2I7fD2rwQBeHPTseDNiBgUjVPQf pe5cxLQtXTfzs7FtVQV7vvW5nELisSYjRTVbJqJ3ZU kbTJ1pme94GYQeSFT0ol1fhRZkfPcuxbTsdDCmXVkx Y8WaRVIsh924JPOwP0MuZHNik9L0ksNlMkRuFGYzcU J6nsW8ABOwQU2edgjza7bgLJmmVLixTSXosuH3ciC7 MPGctOCtB2ByaC5uMSPgVK2pvuqan3ocLGQ8WZxaLG HyKLQ0RzWgDATgj5Uzpgd8GdJlw8EpdPDrJCbhU98z y061HYXsuvXwE8aqzURvzvgdrKEkwtnfUOgpiqZ9WG EuHTfqswksHHIhMGekR4ytCaQcKKAmwLefPMtar0Cz HJYqEPHqNfEzzIBcNTLlDuh8QBDzkDBiYCQcFmWaQ8 cwaouuNiBBRXYjb3siK5eedAQAiIWaE9OoBKapkzZw ZYemVXxlYKU3CIY1Sb60NyZ9OHWume14 CPT Code(s) (test code = 3357) k3aveEPoCDSfgXBhXiFxGOTxKSSjh2lvUKEr bGFuZz IqMsNqUzBtJdzusMPjMHNbVkYzr3pfu223bHYtf1lx JXCiJwW2mTGdNFMunTQmL581a8ibu4snxpJgyEP6DN CeJZT1BGgranRbcuZ0UHwhwRGuAlA5CLowqbInLAoz vaTatkWmIlz9KMPeB487CPW1yGwui1bePBE6JUHvYI VbBqUnYe0vrQNzJ260ATRxMOLLQVQxbZa4UYSqpoKt nnYgqJLFf035X627t0nmSGNhpoVfxCkNhbczy6btF4 93OUEtiNIypqAaXpNjIFYciVYyyUN5IEOfZA7qplks KcTaYW1nutkdXjXmRX1zamh7KbZcAA4xkhaqZxVnTI qsOONuvbyxMRTjx3KmqfqdYC7eQ2Wdg7A9cN5ojZOv XRBinPNuIvRsEPHvha7isZHyFGvsy0AsEGI9jsQ1eZ EraSWpUOUeBW24Mfuxo9UdZhamFDT8CFGnlwCda4Ko p1czZtBoapNoL3iwG2BoRTJzXCMcEISlZvEaszHwn8 Csz5HxwLZajNz6m2qkZMPdYAFgrDhvw5zeLUK0HRCm P4G5uDAcg9esUGqsTFTayDH2kakpHObsIMOguuY7vf shFHqtVDQgyZI9pwhcRRmlLGHwWnS9jfqxQDmhZAZb FGM4UIegc282VJF9XSpmCzqcJExrYIDlrrLhksDnxH duZGVjXHBsYWluXHBsYWluXGYwXGZzMjRccWxccGxh fI4dGwIuTvKgTXngUU7kCCFvC2sdmEIoGHSeYALtH5 lrTsIdyF6mkNfwGQubqoWdFXr2JtE1FSQvwEXgYUx0 MzEyXHBhcn0= SPECIMEN SOURCE (test code = 3377) e0igwOKiJKZxcHXdIfCxUFZeAIKko7be ZGVmbGFuZz UfRvVyHxKqWqwcxFHqRTSlNjZlq8qwz562dERhu6ir OZVeWaC5iUTxJFPaxCGtB518m7vrh9oojnSnxDE9GT QdDDZ7YPzerfPuuwO4DNqpcGKhVuS6YYyoyaQqBBsc tbEzneRcGuv3BQNzN334FHF3pGhpd8zuMFQ8BUWtYP OtYyStLk8yjLZiK433GUQdXRJVYXArhGj1GQDwqhLg pkCqfVOJg657L176j1wzEXRnguYbhInWkkuvs6qqL0 18MQAegOFwzgHmHeXlLYRjlSGthFB0RYCdUW3aqnmv KoBfIA1tlxlmQcLfMN9yglb9CmNlJX1azmsvHwOnAW auPQYpjvzdMDBqs6IwomcpUR4dP2Anb8P9cG5jjMZa TIZjuZKkDpNqLDLbrg4usYQlFOlaq4IrPKR4bkA0cB StxGQoGGKiEM45Gmiuo0FrVsxyPZH3PRQbojUwd2Bb t0mcHjTdmcYxN6spG3JmJAPmQLPzKELgQaKcxjJtz3 Nwk2PclKVdvMm1d1nyCTOzVSFcyWsra5cjGEO4AVCw Z9N6wLSsk9smPHmtGIDidOB0sagsVXnpVMShmoJ0ef esHYisFBGkdRU6itqwDFujESNxCtZ6duqmAKroBLJo HBL1UVpwo972OVL1OEraQczkWVkvFZPczcHfmyBoxJ duZGVjXHBsYWluXHBsYWluXGYwXGZzMjRccWxccGxh gJ7hChVdIwEjEKwzPU5vJFKzI0dzbKEpJFUlUTNdH4 cgZrQkoX4iwEbkVFofpwIrWKSeXWRwp7XhvQOrKIH9 xriySMMnIMZwhiljmYwmkzMexFlyRA86iVGRCpVBzD tavfagFGGol3JczCXue37ogNUneNFyRCAcv0WcuIE9 mP4rIPW8FZZ6XIRwvJtoKL04aONFUOBjTQB8A6GmZY RvjGnuG5WjONqhWRB7 GROSS DESCRIPTION (test code = 3366) w9ewiLZrNWHchUBpMkIgQLO zSUVog7rnLVPkhNUhVk OsByVsTsHoZjmadPLjXZZhDxKjp3etv473hPFbv8jk PTVrFdK5tSZpYURmiXGyF961DHEgAPhlr2jmn3KaNE MctWQfk8N3AJEWrancaOa2bFnyC87pv5O0MtmqW9xz MAUwGFEmP7LsNO7wBAXeEeb9SJT5FRG3UEVtAGLzO1 GzTZ1lHIHdkEUrHHt9o8rnxNwzICMiCAO3l9oaXCqv bhCnXK7usq9znFu5x3qmhkJoLSRtJMPyhVIZACEiL7 TgvNqlMy5lgXt7sRmpYxhwGXY4Irx6LK4iyh50bxb4 dPyfURXxckejZeD5CWcvXPQfzcznPCk9TRmoCZRmxJ cyMFxtYXJncjcyMFxtYXJndDcyMFxtYXJnYjcyMFxo WOUfIGG0CVdhk314SSI6WLdmm7qjs0fpzUScChi1VR BvFqJlJtggMKrzr3Bew2mwSNPoar0vHAP9lZZmyMvw b4F0tJRdLAYqnNGggmDjIDSdEvT7JRssEJ4txo83OY EfSIV0tr0saMIwwJamuiZdjXReSBzkH9YuPVSuw215 JDQbX9QaNUBpz7N0iyOwEjCpBGFwuOA2idE0XNAzIJ q6uMRspoP5xeJiyHRjC6osfO22McYnmZXkD2WbzE06 ShFpoPHiT9YihF67JpBplZOzP8BziQ59YoTedMNgFA WfhNSxVe8xsIAujQXjp2JiuTJwZGniK08mc306ITOc ycYbY3wujQUiesatdSXavyjmNZvsrjP2TBFpEPQjKR luXGYwXGZzMjBcbGFuZzEwMzNcaGljaFxmMFxkYmNo BWMtQWczJ1pwDhCjLtSqSMGBiZRogL6upnUSVrCTNU XpsCDjIUFprSjsrQd9XZPvusEhRQObrwBrbC5kyrIu ZJNkcWHfIUonmApgoOaiABOrkJwmhuOqssRjCT0vB4 GkhAadHcRjntBymv7pdZuzlrKoyxYgr0LcN2xdTJcc JFXkTXPnxU6tWE57dZNqrgLjgvBcgCwoCZDzXJsvUY 48ycAdMgTmlKMtPxWwhSCiUoPqD56niT0cRTinmiQq YLSoGYY4Sk7kmJSaFPBodtBduR3nuzXPTW8fcLYwNJ SxujzmySXyNSFglEarhJojtF1xTiOsXuKjHUsrsLVg sfqtFHneetLcECylwmcwYBXvDWffW1ywHtRsBEBmhI gcHHhfm1NiJBQnCILwRdHiS6VfG2oqGC8jTs4bOvGr FAv4DIRrWhf0CTEyscTatV3tJXPvg403QDehNKRpyS ReJAcfNWN4qGEwPLBqKEDsYKXfOC29Y8XxAPMoy7ew FUYrfQAloZ6hb2IjNEGwm15dHX2mCRE7cdplO9FjRE DeD5Yig7tsskLcoU5dRGLucOZra45kOSLtFBbrXL96 NYZdCoN6LAHnCGG0NNJlCOPaoQAknGW9ODLlpW7cVa dqC7qmSxFyJICcMIbjBXRnZFImMnMtsIWjLpFhKcPk zSrdnCuhHGyyBfDxXYEcZKrxX3xuSzNjSoEhBHFoQI wvZXcgXHBhcn0= SPECIAL STUDIES (test code = 3376) f0eosRTbXOOok9lqEGHdsRVlNwIrFxPo ZnRuYmpcdW HkYRenvpOzFBykn7FgX5TpFyVaRWvedkDrRGKlLnzo kdajDGPgIRA2ulGxHBQrWFypMZUlONpnZw3iaKBufX inBxEfZFYsv1tilmFClxahrLh6u3csWMAzEyG4aXFv GTxuD4xhzwKgjFHkK8CtwOXvvVm5h6brEjXeYqY7iC UtIVomJ5zswtZaeVPxYPIaPIm9eG61NLXifN5zzWJe AMdpcfZwBtZ8ERxvSBDfElL8AYYrhOYqZGQbS7qrHG OvKZbmCHPsMLuwfFYaKOB1pGgvx2O7jHNvyDDxwUbz UvNtLkLfIjPXy7ZgDZz2cOlaP1OyDLEdZjA9zONoUK RjBTnsTKJwFZNfnxU5bIckodVlz22mzYTaJUZbSKCc IfCheLreLVDnVHEOx4UjsAkoPCB8mWb9wEjyKnqjNG J4Vxb6HS3kju25wkf8mUulOGFzxdwdEhM8WBpnDKLz ocepPHt3NRajLVKlvYZ7YDKfnIDbE1JuKOJmAD9fbj y4DXR5YDkhNLPnBeW2HQZfmJPgLNHkeZjhDAjgz475 QUT9PbBcCZ7jC1Axi6R7zJ5tmHSeXROvdPYxLwFoKQ Vmwf0skDGfZMiin1OkKMA5qeG3sZWajUOnHOTzLI95 Vofxh1PfVenbj0KaN32rcJQ2HChdo1bjAW9aGhZ9uv WdVJxef4fvpV2hOuZ7PScuWG8vVN5wTSSnlR7dpqwb QQOkQkRtsqyuIZMryNmoclHeXg5vsYngOEK2YJrsJ2 etiF5jWiX1ORcpO7lqqM2iFKm7ZGeluHY7AWNhpA6i QY3lcejub8puXGyaYUwyFTKakbC0bqF5KELvgHShI6 TcwR9oTWKxUK6rdqtrw8juWFU8WOtuLDEnNZP8JmFx MRYqs9Mwhxy5AkXwl2GuzDCqGYayW17he620JEFvcd QsF7tdkRAnyhelpFMgfenhSEchzsW9AZHnDKHzCPap XGYxXGZzMjJcbGFuZzEwMzNcaGljaFxmMVxkYmNoXG NsGBuiG6dnYsTeC4UeEFRbMiDeDJgiPVwvoEQdfNCf qQV4sR8vYA3dJWAyyPHdR6AhWAVcwfGtmGHkCDZ6zH BmzMVgNV8zOWzsqXYjp0qza1YrQ0ozjRumdWK7RC7l RQQpOJOvWYone9BogS0aUvcgqTJbejsxOOaeqyTgRB rrpsfeEVTdXRmyY5hbKqQgMRDcdSczPDttx6FwXTHl JWBaWtjkniYkXOx2liHcRWPoutakGNWryPcauT0cNk CqMlCzArprJF3cFSCuS1hiqQUvHELbBSCtM5kyUtVq sB4xfQygSJlgUdPkUqJcNlEXi812vw7yZVAlqADxmj AIpRUmfR5tSIslQSiaAGooqDCoGTing7krMDYby1j4 sUTaIXGuygSvb5daICmbcrNeYXNplRLpzTPxWNXeg0 1iPLdzpPijuDgfDFOsc9ZtpObfd9YwGkJdBEmin2Lg U13udIAmwFXzaEuvUZFbltQrXHBkj23xa9zyTLSbTu E7pCXdaQU4wVQvrHUfl4DksVgtTZWqf3xlYNCmjy1r ejxkgDCcf3QwnC6pnbdaDBriiYXchyKsRHQzc9z6fC KvXVJsXULkKCsdgRy1IBYkx803jn4nezK8zLWpGDX2 YWlsYWJsZSBhcmUgZXZhbHVhdGVkXHBsYWluXGYxXG ZzMjJcbGFuZzEwMzNcaGljaFxmMVxkYmNoXGYxXGxv X2syJfHeY3RkZDYbTbHgoRGgQ8eimGMnLHHsXEcaON YxXGZzMjJcbGFuZzEwMzNcaGljaFxmMVxkYmNoXGYx SObbD9vuLbQsN7XpBWZuMiKmWGcxeDEznhpvQLuefu GdFApwcnjkSETzNWgdB8isMsChUZHauQuyPHqnw9Io ZPJmDSQbRvdwgkJaGKr1tqTlWUOerladcVTjmnxhUW tbunAlTOvsuvhjMFUwZDhbZ4ufBwAfIBMxwOebQGvn s6XcMFKjLQPpEfodjeEcROqypKTqf0cvn2WnP3cujA uqaPW0HFPfH8ydgNJhzGD4DWZ2kT1nEWxdzfXrWRGn g9YfEMIpLZHaFtG7kB5eIYR7DfSBkFvbDHDhSSitWV YxXGZzMjJcbGFuZzEwMzNcaGljaFxmMVxkYmNoXGYx HGkfN3upXwVkS0XoBGWqXbJebZevIMqnLSu4NfedeB NnhjjsWYbehcMtXApepsaiTCLoNRmjG6wiVgZuNSWs sNvnMIlta7XnSVQgRNLgBjsxygRaHJEjJWExaCPxsO FUQR48MXHmNFDlqUezuO4wiPVVIXNtydP2c7Y4PBpw OXJgUFg4TOshdkSrZBEoaK1gZNAgDP1gETl2bgFgTT Dxx7NaXZ2rIZJnpNTnPSA8HPXfm9QgE4Sdg9PnCMGt VWQkbt7yqvReDhGSkTSjKRYynp82BDYqDC2aN3wyFQ DlCPDhovQuoKTwn5YoVBMntYN0kABzBK6UTlKOt12y ZKMqEIOGqxTrGJSkiHqvsFZ9vkP5jR4sBkXJbBRzYq RTRYelzaReHIZtcc0fwgMrYYXmBGPxx7TboJOqjVKg vsXxJ1Wmy4KhGWUmje40OBubmYOrup55AS7rY3Iqy5 DgcT6nCEpnCNGuw2CveTCixXBtAKFsi7CpL9fhgpdn FStqtTYogD6cDHZaVXn9RNLce4JnJJMlc6SgZwQgvq XuUNHgPTYyQTHvtJ70TIC9yUcybQomiaKoYZ3sOQJe buAbWZThDWQhfY4vEUmaxhPyCROwyyL3l1K5YOzsOI ZwztJkDreiTVP6uwZmhzH0dOIqW2sihazgDYmpPSDp d0IxoG6hxRHLeYGml4QtiYPzsWMVtPYnCJ0jjqUaUF 7hXMK3GKmmKEBQJKJpKGpuPTEfVNZ7PUylJsfgXAQ9 obLyZNDkw1CxOYumL5hkV31guGvkeOn5rNQujRrmzJ GwwAWgLOWkleD0x6S5NLCyo4PgakayWQAbZMzoJIEd XGZzMjJcbGFuZzEwMzNcaGljaFxmMlxkYmNoXGYyXG deI3xvElHaLjVuEhkwLSZ6oQ== [id number] 09:50:00Surgical Pathology Report Case: [id number] Authorizing Provider: Darian Fry MD Collected: 07/23/2019 0722 Ordering Location: [facility] [place] Endoscopy Received: 07/23/2019 1333 Services Pathologist: Lea Santillan MD Specimens: A) - Biopsy, Gastric, r/o H. Pylori B) -Biopsy, Esophagus, at 36cm r/o Nicholson's Esophagus A. STOMACH, RANDOM BIOPSIES: - CHRONIC INACTIVE GASTRITIS - NEGATIVE FOR HELICOBACTER PYLORI ORGANISMS BY WARTHIN STARRY STAIN - NEGATIVE FOR INTESTINAL METAPLASIA, DYSPLASIA, MALIGNANCYB. ESOPHAGUS, 36 CM, BIOPSY: - JUNCTIONAL MUCOSA WITH REFLUX ESOPHAGITIS - NEGATIVE FOR INTESTINAL METAPLASIA, DYSPLASIA, MALIGNANCY Signing Pathologist Direct Phone Line: [phone] signed by Lea Santillan MD on 07/27/2019 at 9:50 [id number]. Biopsy gastric, description rule out H. Pylori. Biopsy e sophagus, description at 36, rule out Nicholson's esophagus Specimen A. Received fixative in a container labeled with the patient's demographic information and surgical accession number are two fragments0.4 x 0.2 x 0.1 cm in aggregate submitted in block A1.Specimen B. Received fixative in a container labeled with the patient's demographic information and surgical accession number is one fragment 0.3 x0.1 x 0.1 submitted in block B1. HL/ew The interpretation of this case included the use of immunohistochemistry or special stains.Control Slides Examined: In-house known positive controls were evaluated along with the test tissue. These control slides run alongside of the patients sample show appropr iate staining. Internal positive and negative controls when available are evaluated Immunohistochemistry technical testing was performed at [facility], Pathology Laboratory where it was developed and its performance characteristics were determined. It has not been cleared or approved by the U.S. Food and Drug Administration. The FDA has determined that such clearance or approvalis not necessary. The test is used for clinical purposes. It should not be regarded as investigational or for research. This laboratory is certified under the Clinical Laboratory Improvement Amendmentsof 1988 (CLIA-88) as qualified to perform high complexity clinical laboratory testing.HEMOGLOBIN [id number] 12:55:00 Test Item Value Reference Range Interpretation Comments HEMOGLOBIN A1C (BEAKER) (test code = 4.8 % 4.3-6.1 368) LIPID [id number] 08:01:00 Test Item Value Reference Range Interpretation Comments TRIGLYCERIDES (BEAKER) (test code = 95 mg/dL 540) CHOLESTEROL (BEAKER) (test code = 133 mg/dL 631) HDL CHOLESTEROL (BEAKER) (test code 46 mg/dL = 976) LDL CHOLESTEROL CALCULATED (BEAKER) 68 mg/dL (test code = 633) Triglyceride Reference Range: Low Risk <150 Borderline 150-199 High Risk 200-499 Very High Risk >=500Cholesterol Reference Range: Low Risk <200 Borderline 200-239 High Risk >240HDL Cholesterol Reference Range: Low Risk >=60 High Risk <40LDL Cholesterol Reference Range: Optimal <100 Near Optimal 100-129 Borderline 130-159 High 160-189 Very High >=190COMPREHENSIVE METABOLIC [id number] 08:01:00 Test Item Value Reference Range Interpretation Comments TOTAL PROTEIN 7.1 gm/dL 6.0-8.3 (BEAKER) (test code = 770) ALBUMIN (BEAKER) 3.8 g/dL 3.5-5.0 (test code = 1145) ALKALINE PHOSPHATASE 119 U/L 40-150 (BEAKER) (test code = 346) BILIRUBIN TOTAL 0.7 mg/dL 0.2-1.2 (BEAKER) (test code = 377) SODIUM (BEAKER) (test 139 meq/L 136-145 code = 381) POTASSIUM (BEAKER) 3.5 meq/L 3.5-5.1 (test code = 379) CHLORIDE (BEAKER) 103 meq/L 98-107 (test code = 382) CO2 (BEAKER) (test 25 meq/L 22-29 code = 355) BLOOD UREA NITROGEN 19 mg/dL 7-21 (BEAKER) (test code = 354) CREATININE (BEAKER) 0.71 mg/dL 0.57-1.25 (test code = 358) GLUCOSE RANDOM 104 mg/dL 70-105 (BEAKER) (test code = 652) CALCIUM (BEAKER) 9.6 mg/dL 8.4-10.2 (test code = 697) AST (SGOT) (BEAKER) 28 U/L 5-34 (test code = 353) ALT (SGPT) (BEAKER) 30 U/L 6-55 (test code = 347) EGFR (BEAKER) (test 90 mL/min/1.73 ESTIMA DESMOND GFR IS code = 1092) sq m NOT ACCURATE CREATININE CLEARANCE IN PREDICTING GLOMERULAR FILTRATION RATE . ESTIMATED GFR I S NOT APPLICABLE FOR DIALYSIS PATIEN TS. TSH/FREE T4 IF [id number] 06:11:00 Test Item Value Reference Range Interpretation Comments THYROID STIMULATING HORMONE 2.58 uIU/mL 0.35-4.94 (BEAKER) (test code = 772) VITAMIN B12 AND [id number] 06:11:00 Test Item Value Reference Range Interpretation Comments VITAMIN B12 (BEAKER) (test code = 318 pg/mL 213-816 774) FOLATE (BEAKER) (test code = 362) 16.9 ng/mL >=7.0 CBC (HEMOGRAM ONLY)2019-01-02 04:56:00 Test Item Value Reference Range Interpretation Comments WHITE BLOOD CELL COUNT (BEAKER) 6.5 K/ L 3.5-10.5 (test code = 775) RED BLOOD CELL COUNT (BEAKER) 4.61 M/ L 3.93-5.22 (test code = 761) HEMOGLOBIN (BEAKER) (test code = 12.7 GM/DL 11.2-15.7 410) HEMATOCRIT (BEAKER) (test code = 39.8 % 34.1-44.9 411) MEAN CORPUSCULAR VOLUME (BEAKER) 86.3 fL 79.4-94.8 (test code = 753) MEAN CORPUSCULAR HEMOGLOBIN 27.5 pg 25.6-32.2 (BEAKER) (test code = 751) MEAN CORPUSCULAR HEMOGLOBIN CONC 31.9 GM/DL 32.2-35.5 L (BEAKER) (test code = 752) RED CELL DISTRIBUTION WIDTH 13.5 % 11.7-14.4 (BEAKER) (test code = 412) PLATELET COUNT (BEAKER) (test 222 K/CU MM 150-450 code = 756) MEAN PLATELET VOLUME (BEAKER) 10.5 fL 9.4-12.3 (test code = 754) NUCLEATED RED BLOOD CELLS 0 /100 WBC 0-0 (BEAKER) (test code = 413) URINALYSIS [id number] 02:49:00 Test Item Value Reference Range Interpretation Comments RBC UA (BEAKER) (test code = 519) < /HPF WBC UA (BEAKER) (test code = 520) 1 /HPF MUCUS (BEAKER) (test code = 1574) Many SQUAMOUS EPITHELIAL (BEAKER) (test 4 /HPF code = 516) URINALYSIS WITH MICROSCOPIC IF [id number] 02:46:00 Test Item Value Reference Range Interpretation Comments COLOR (BEAKER) (test code = 470) Yellow CLARITY (BEAKER) (test code = 469) Hazy SPECIFIC GRAVITY UA (BEAKER) (test 1.032 1.001-1.035 code = 468) PH UA (BEAKER) (test code = 467) 5.5 5.0-8.0 PROTEIN UA (BEAKER) (test code = 30 mg/dL Negative A 464) GLUCOSE UA (BEAKER) (test code = Negative Negative 365) KETONES UA (BEAKER) (test code = Trace Negative A 371) BILIRUBIN UA (BEAKER) (test code = Negative Negative 462) BLOOD UA (BEAKER) (test code = 461) Negative Negative NITRITE UA (BEAKER) (test code = Negative Negative 465) LEUKOCYTE ESTERASE UA (BEAKER) Negative Negative (test code = 466) UROBILINOGEN UA (BEAKER) (test code 2.0 mg/dL 0.2-1.0 H = 463) SOURCE(BEAKER) (test code = 2795) B-TYPE NATRIURETIC FACTOR (BNP)2019-01-01 15:41:00 Test Item Value Reference Range Interpretation Comments B-TYPE NATRIURETIC PEPTIDE (BEAKER) 32 pg/mL 0-100 (test code = 700) TROPONIN [id number] 15:40:00 Test Item Value Reference Range Interpretation Comments TROPONIN I (BEAKER) (test code = 0.02 ng/mL 0.00-0.03 397) Troponin I (TnI) levels must be interpreted [...] acute neurological disease, and persistent tachyarrhythmia.BASIC METABOLIC [id number] 15:39:00 Test Item Value Reference Range Interpretation Comments SODIUM (BEAKER) 140 meq/L 136-145 (test code = 381) POTASSIUM (BEAKER) 3.8 meq/L 3.5-5.1 (test code = 379) CHLORIDE (BEAKER) 102 meq/L 98-107 (test code = 382) CO2 (BEAKER) (test 28 meq/L - code = 355) BLOOD UREA NITROGEN 14 mg/dL 7-21 (BEAKER) (test code = 354) CREATININE (BEAKER) 0.72 mg/dL 0.57-1.25 (test code = 358) GLUCOSE RANDOM 105 mg/dL 70-105 (BEAKER) (test code = 652) CALCIUM (BEAKER) 10.3 mg/dL 8.4-10.2 H (test code = 697) EGFR (BEAKER) (test mL/min/1.73 INSUFFIC IENT CLINICAL code = 1092) sq m DATA TO CALCULA TE ESTIMATED GFR. [id number] 15:33:00 Test Item Value Reference Range Interpretation Comments MAGNESIUM (BEAKER) (test code = 2.0 mg/dL 1.6-2.6 627) RAD, CHEST, 1 VIEW, NON [id number] 15:29:00Reason for exam:->chest painIs the patient ?->UnknownFINAL REPORT TECHNIQUE: Frontal chest radiograph dated 01/01/2019. CLINICAL HISTORY: Chest pain COMPARISON STUDY: None IMPRESSION:Left-sided, dual-chamber defibrillator is in place. No pleural effusion or pneumothorax. Cardiomediastinal silhouette is normal in size. No pulmonaryedema. No fracture. Signed: Bg Zamudioeport Verified Date/Time: 01/01/2019 15:29:08 Reading Location: [facility] Radiology Reading Room [id number] 15:23:00 Test Item Value Reference Range Interpretation Comments PROTIME (BEAKER) (test code = 13.5 seconds 11.7-14.7 759) INR (BEAKER) (test code = 370) 1.0 <=5.9 PARTIAL THROMBOPLASTIN TIME 31.0 seconds 22.5-36.0 (BEAKER) (test code = 760) RECOMMENDED COUMADIN/WARFARIN INR THERAPY RANGESSTANDARD DOSE: 2.0 - 3.0 Includes: PROPHYLAXIS forvenous thrombosis, systemic embolization; TREATMENT for venous thrombosis and/or pulmonary embolus.HIGH RISK: Target INR is 2.5-3.5 for patients with mechanical heart valves. SCREEN, [id number] 15:23:00 Test Item Value Reference Range Interpretation Comments TEST URINE (BEAKER) (test Negative code = 583) CBC W/PLT COUNT & AUTO [id number] 15:15:00 Test Item Value Reference Range Interpretation Comments WHITE BLOOD CELL COUNT (BEAKER) 9.6 K/ L 3.5-10.5 (test code = 775) RED BLOOD CELL COUNT (BEAKER) 4.87 M/ L 3.93-5.22 (test code = 761) HEMOGLOBIN (BEAKER) (test code = 13.4 GM/DL 11.2-15.7 410) HEMATOCRIT (BEAKER) (test code = 41.1 % 34.1-44.9 411) MEAN CORPUSCULAR VOLUME (BEAKER) 84.4 fL 79.4-94.8 (test code = 753) MEAN CORPUSCULAR HEMOGLOBIN 27.5 pg 25.6-32.2 (BEAKER) (test code = 751) MEAN CORPUSCULAR HEMOGLOBIN CONC 32.6 GM/DL 32.2-35.5 (BEAKER) (test code = 752) RED CELL DISTRIBUTION WIDTH 13.2 % 11.7-14.4 (BEAKER) (test code = 412) PLATELET COUNT (BEAKER) (test 222 K/CU MM 150-450 code = 756) MEAN PLATELET VOLUME (BEAKER) 9.6 fL 9.4-12.3 (test code = 754) NUCLEATED RED BLOOD CELLS 0 /100 WBC 0-0 (BEAKER) (test code = 413) NEUTROPHILS RELATIVE PERCENT 83 % (BEAKER) (test code = 429) LYMPHOCYTES RELATIVE PERCENT 12 % (BEAKER) (test code = 430) MONOCYTES RELATIVE PERCENT 3 % (BEAKER) (test code = 431) EOSINOPHILS RELATIVE PERCENT 0 % (BEAKER) (test code = 432) BASOPHILS RELATIVE PERCENT 0 % (BEAKER) (test code = 437) NEUTROPHILS ABSOLUTE COUNT 8.03 K/ L 1.56-6.13 H (BEAKER) (test code = 670) LYMPHOCYTES ABSOLUTE COUNT 1.17 K/ L 1.18-3.74 L (BEAKER) (test code = 414) MONOCYTES ABSOLUTE COUNT (BEAKER) 0.32 K/ L 0.24-0.36 (test code = 415) EOSINOPHILS ABSOLUTE COUNT 0.04 K/ L 0.04-0.36 (BEAKER) (test code = 416) BASOPHILS ABSOLUTE COUNT (BEAKER) 0.03 K/ L 0.01-0.08 (test code = 417) IMMATURE GRANULOCYTES-RELATIVE 1 % 0-1 PERCENT (BEAKER) (test code = 2801) CT, BRAIN/STROKE [id number] 14:33:00Reason for exam:->NUMBNESSReason for exam:->HEADACHEIs the patient [...] MRI is recommended for further evaluation. Signed: Latisha Youssef MDReport Verified Date/Time: 01/01/2019 14:33:00 Reading Location: [facility] Radiology Reading Room
--- NOTE | 2020-03-22 14:04 | RAD REPORT ---
EXAM DESCRIPTION: RAD - Chest Single View - 03/22/2020 1:53 pm CLINICAL HISTORY: Cough;Congestion Chest pain. COMPARISON: Chest Single View dated 02/04/2019; Chest Single View dated 10/23/2018; Chest Pa And Lat ( 2 Views) dated 10/23/2018; Chest Single View dated 08/22/2018 FINDINGS: Portable technique limits examination quality. The lungs are grossly clear. The heart is normal in size. No displaced fractures.Pacer/defibrillator device is present. Portion of the left upper lobe parenchyma is obscured by the pacer pack. IMPRESSION: No acute intrathoracic process suspected.
[2020-03-22] MEDS ORDERED: NA CHLORIDE 0.9% 1,000 ML ONE (14:41)
[2020-03-22 15:05] LABS: ALT/SGPT 105 U/L (12-78); AST/SGOT 64 U/L (15-37); Alkaline Phosphatase 158 U/L (45-117); BUN Blood Urea Nitrogen 18 mg/dL (7-18); Bicarbonate 23 mmol/L (21-32); Bilirubin Direct 0.1 mg/dL (0-0.2); Bilirubin Total 0.5 mg/dL (0.2-1.0); Glucose Level 109 mg/dL (74-106); Magnesium 2.2 mg/dL (1.8-2.4); NT PRO-BNP 40 pg/mL (<125); Potassium 3.6 mmol/L (3.5-5.1); Protein, Total 8.7 g/dL (6.4-8.2); Sodium Level 140 mmol/L (136-145); Troponin (Emerg Dept Use Only) < 0.02 ng/mL (0.0-0.045)
[2020-03-22 15:10] LABS: Lipase 158 U/L (73-393)
[2020-03-22 15:44] LABS: Urine Blood NEGATIVE (NEG); Urine Glucose NEGATIVE (NEG); Urine Protein NEGATIVE (NEG); Urine Specific Gravity >1.030 (1.005-1.030); Urine pH 5.5 (5.0-7.0)
[2020-03-22 16:24] LABS: Absolute Lymphocytes (CBC) 1.7 K/uL (0.7-4.9); Basophils % 0.5 % (0-1.3); Hematocrit 42.3 % (36.0-45.0); Lymphocytes % 16.5 % (15.3-44.8); MPV 8.8 fL (7.6-11.3); RBC Red Blood Cell Count 4.99 M/uL (3.86-4.86)
[2020-03-22] MEDS ORDERED: AZITHROMYCIN 250 MG TAB ONE (16:35)
[2020-03-22] MEDS ORDERED: CEFTRIAXONE/SWI 1gm 1 GM/10 ML SYR ONE (16:35)
--- NOTE | 2020-03-22 16:48 | EDPHYS ---
Physician Documentation [facility] Name: Vanessa Gonzalez Age: 44 yrs Sex: Female : 1975 Arrival Date: 03/22/2020 Time: 12:31 Bed 16 Private MD: JIM Physician Eliot Hair HPI: 03/22 13:35 This 44 yrs old Female presents to ER via Ambulatory with complaints of Sore madyson Throat, Shortness Of Breath, General Weakness. 13:35 The patient presents with sore throat. The patient describes throat pain as burning, madyson constant. Onset: The symptoms/episode began/occurred 3 day(s) ago. Severity of symptoms: At their worst the symptoms were mild, moderate, in the emergency department the symptoms are unchanged. Modifying factors: The symptoms are alleviated by fluids, the symptoms are aggravated by fluids, Patient's oral intake status:. Associated signs and symptoms: Pertinent positives: chills, cough, flu-like symptoms, shortness of breath. The patient has experienced similar episodes in the past, a few times. 13:35 The patient has shortness of breath with light activity. The patient's shortness of madyson breath is aggravated by nothing, is alleviated by nothing. The patient or guardian reports chest pain that is located primarily in the substernal area, anterior chest wall, bilaterally. 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 N/A - Hysterectomy tw2 Historical: - Allergies: 12:43 Ketorolac; tw2 12:43 Morphine; tw2 - Home Meds: 12:43 Xanax 0.5 mg Oral tab 1 tab 3 times per day [Active]; Repatha Syringe 140 mg/mL tw2 subcutaneous syrg 1 mL every 2 wks [Active]; Protonix Oral [Active]; nadolol 10 mg Oral tab 1 tab once daily [Active]; losartan-hydrochlorothiazide 100-25 mg Oral tab 1 tab once daily [Active]; amlodipine 2.5 mg tab 1 tab once daily [Active]; - PMHx: 12:43 Anxiety; Depression; GERD; High Cholesterol; Hypertension; Pacemaker; prolonged QT tw2 interval; TIA; - PSHx: 12:43 Cholecystectomy; Hysterectomy; lap band; ; Carpal Tunnel Repair; tw2 - Immunization history:: Adult Immunizations. - Social history:: Smoking status: Patient/guardian denies using. - Family history:: not pertinent. ROS: 13:35 Constitutional: Negative for fever, chills, and weight loss, Eyes: Negative for injury, madyson pain, redness, and discharge, ENT: Negative for injury, pain, and discharge, Neck: Negative for injury, pain, and swelling, Respiratory: Negative for shortness of breath, cough, wheezing, and pleuritic chest pain, Abdomen/GI: Negative for abdominal pain, nausea, vomiting, diarrhea, and constipation, Back: Negative for injury and pain, : Negative for injury, bleeding, discharge, and swelling, MS/Extremity: Negative for injury and deformity, Skin: Negative for injury, rash, and discoloration, Neuro: Negative for headache, weakness, numbness, tingling, and seizure, Psych: Negative for depression, anxiety, suicide ideation, homicidal ideation, and hallucinations, Allergy/Immunology: Negative for hives, rash, and allergies, Endocrine: Negative for neck swelling, polydipsia, polyuria, polyphagia, and marked weight changes, Hematologic/Lymphatic: Negative for swollen nodes, abnormal bleeding, and unusual bruising. 13:35 Cardiovascular: Positive for chest pain. 13:35 Respiratory: Positive for shortness of breath, at rest. Exam: 13:35 Constitutional: This is a well developed, well nourished patient who is awake, alert, madyson and in no acute distress. Head/Face: Normocephalic, atraumatic. Eyes: Pupils equal round and reactive to light, extra-ocular motions intact. Lids and lashes normal. Conjunctiva and sclera are non-icteric and not injected. Cornea within normal limits. Periorbital areas with no swelling, redness, or edema. ENT: Nares patent. No nasal discharge, no septal abnormalities noted. Tympanic membranes are normal and external auditory canals are clear. Oropharynx with no redness, swelling, or masses, exudates, or evidence of obstruction, uvula midline. Mucous membranes moist. Neck: Trachea midline, no thyromegaly or masses palpated, and no cervical lymphadenopathy. Supple, full range of motion without nuchal rigidity, or vertebral point tenderness. No Meningismus. Chest/axilla: Normal chest wall appearance and motion. Nontender with no deformity. No lesions are appreciated. Cardiovascular: Regular rate and rhythm with a normal S1 and S2. No gallops, murmurs, or rubs. Normal PMI, no JVD. No pulse deficits. Respiratory: Lungs have equal breath sounds bilaterally, clear to auscultation and percussion. No rales, rhonchi or wheezes noted. No increased work of breathing, no retractions or nasal flaring. Abdomen/GI: Soft, non-tender, with normal bowel sounds. No distension or tympany. No guarding or rebound. No evidence of tenderness throughout. Back: No spinal tenderness. No costovertebral tenderness. Full range of motion. Female : Normal external genitalia. Skin: Warm, dry with normal turgor. Normal color with no rashes, no lesions, and no evidence of cellulitis. MS/ Extremity: Pulses equal, no cyanosis. Neurovascular intact. Full, normal range of motion. Neuro: Awake and alert, GCS 15, oriented to person, place, time, and situation. Cranial nerves II-XII grossly intact. Motor strength 5/5 in all extremities. Sensory grossly intact. Cerebellar exam normal. Normal gait. Psych: Awake, alert, with orientation to person, place and time. Behavior, mood, and affect are within normal limits. 13:35 Musculoskeletal/extremity: DVT Exam: No signs of deep vein thrombosis. no pain, no swelling, no tenderness, negative Homans' sign noted on exam, no appreciated bluish discoloration, no erythema, no increased warmth. Vital Signs: 12:38 BP 156 / 109; Pulse 83; Resp 18; Temp 97.9(TE); Pulse Ox 99% on R/A; Weight 101.6 kg tw2 (R); Height 5 ft. 2 in. (157.48 cm); Pain 7/10; 14:50 BP 144 / 94; Pulse 60; vc 15:32 BP 142 / 95; Pulse 59; Resp 16; Pulse Ox 100% on R/A; iw 16:09 BP 124 / 94; Pulse 59; Resp 16; Pulse Ox 99% on R/A; iw 12:38 Body Mass Index 40.97 (101.60 kg, 157.48 cm) tw2 MDM: 12:57 Patient medically screened. [facility] 13:37 Data reviewed: vital signs, nurses notes, lab test result(s), EKG, radiologic studies, madyson plain films. 13:37 Differential diagnosis: Allergic rhinitis, bronchitis, abnormal EKG, acute myocardial madyson infarction, coronary artery disease pneumonia, pulmonary embolus, stable angina, unstable angina, gastroesophageal reflux disease, group A strep tonsillitis, influenza, pharyngitis. Antibiotic administration: Not indicated. HEART Score: History: Slightly Suspicious (0), ECG: Normal (0), Age: < or = 45 years (0), Risk Factors: > or = 3 Risk factors for atherosclerotic disease (2), [Hypercholesterolemia] [Hypertension] [+ Family HX] [Obesity]. The patient was not given aspirin in the Emergency Department. Patient reports taking aspirin within the past 24 hours. The patient's Wells Deep Vein Thrombosis Score was calculated as follows: Total Score: 0-2 Pts- Low Risk. The patient's pulmonary embolism risk score was calculated as follows: Total Score: 0-2 points. This patient was found to be at low risk for a pulmonary embolism by using the Well's assessment criteria. AFUA Risk Score: 1 - Three or more CAD risk factors, [Family Hx], [HTN], [Elevated Cholesterol], TOTAL SCORE = 1. Immunization status:. Data interpreted: cafeteria monitor: rate is 83 beats/min, rhythm is normal sinus rhythm, Pulse oximetry: on room air is 99 %. Test interpretation: by ED physician or midlevel provider: ECG, plain radiologic studies. 15:30 ED course: all labs explained and understood. 03/22 13:34 Order name: Basic Metabolic Panel; Complete Time: 15:30 03/22 13:34 Order name: CBC with Diff; Complete Time: 16:47 03/22 13:34 Order name: LFT's; Complete Time: 15:30 03/22 13:34 Order name: Magnesium; Complete Time: 15:30 03/22 13:34 Order name: NT PRO-BNP; Complete Time: 15:30 03/22 13:34 Order name: Troponin (emerg Dept Use Only); Complete Time: 15:30 03/22 13:34 Order name: Blood Culture Adult (2) 03/22 13:34 Order name: COVID-19 03/22 13:34 Order name: Influenza Screen (a \T\ B); Complete Time: 15:51 03/22 13:34 Order name: Strep; Complete Time: 15:51 03/22 13:34 Order name: D-Dimer; Complete Time: 16:47 [facility] 03/22 15:06 Order name: Lipase; Complete Time: 15:30 EDDE 03/22 15:32 Order name: Urine Dipstick--Ancillary (enter results); Complete Time: 15:51 03/22 13:34 Order name: XRAY Chest (1 view); Complete Time: 14:54 [facility] 03/22 13:34 Order name: EKG; Complete Time: 13:36 [facility] 03/22 13:34 Order name: Cardiac monitoring; Complete Time: 19:37 [facility] 03/22 13:34 Order name: EKG - Nurse/Tech; Complete Time: 19:37 [facility] 03/22 13:34 Order name: IV Saline Lock; Complete Time: 16:30 [facility] 03/22 13:34 Order name: Labs collected and sent; Complete Time: 16:30 [facility] 03/22 13:34 Order name: O2 Per Protocol; Complete Time: 16:30 [facility] 03/22 13:34 Order name: O2 Sat Monitoring; Complete Time: 16:30 [facility] 03/22 13:34 Order name: Urine Dipstick-Ancillary (obtain specimen); Complete Time: 14:52 [facility] 03/22 14:53 Order name: Labs - recollect needed: recollect lavender and blue top; Complete Time: bd 16:24 03/22 15:42 Order name: Throat Culture EDMS Administered Medications: 14:53 Drug: NS 0.9% 1000 ml Route: IV; Rate: 1 bolus; Site: left antecubital; 16:36 Drug: Rocephin 1 grams Route: IV; Rate: per protocol; Site: left antecubital; 16:36 Drug: Zithromax 500 mg Route: PO; iw 17:00 Follow up: Response: No adverse reaction iw 17:14 Drug: Aspirin 162 mg Route: PO; iw 17:20 Follow up: Response: No adverse reaction iw Disposition: 03/22/20 16:47 Discharged to Home. Impression: Bronchitis, not specified as acute or chronic, Acute pharyngitis, Cough. - Condition is Stable. - Discharge Instructions: Acute Bronchitis, Adult, Pharyngitis, Upper Respiratory Infection, Adult, Cool Mist Vaporizer, Pharyngitis, Lsbh-ul-Hdos, Cough, Adult, Fygk-qt-Btlq, Aspirin and Your Heart, Cough, Adult, Sore Throat, Rjug-oo-Kugk. - Prescriptions for Bromfed DM 2- 30-10 mg/5 mL Oral syrup - take 10 milliliter by ORAL route every 6 hours; 16 milliliter. Zithromax 500 mg Oral Tablet - take 1 tablet by ORAL route once daily for 4 days; 4 tablet. Medrol (Ras) 4 mg Oral Tablets, Dose Pack - take 1 tablet by ORAL route as directed - follow package instructions; 1 packet. - Work release form, Medication Reconciliation Form, Thank You Letter, Antibiotic Education, Prescription Opioid Use form. - Follow up: Private Physician; When: 2 - 3 days; Reason: Recheck today's complaints, Continuance of care, Re-evaluation by your physician. - Problem is new. - Symptoms have improved. Signatures: Dispatcher [employer] [facility] Maya Guadalupe Corey, MD MD cha Williams, Irene, MAIRA R RN Neetu Foster RN RN tw2 Corrections: (The following items were deleted from the chart) 15:06 15:00 LIPASE+C.LAB.BRZ ordered. [facility] 17:29 16:47 03/22/2020 16:47 Discharged to Home. Impression: Bronchitis, not specified as iw acute or chronic; Acute pharyngitis; Cough. Condition is Stable. Discharge Instructions: Acute Bronchitis, Adult, Pharyngitis, Upper Respiratory Infection, Adult, Cool Mist Vaporizer, Pharyngitis, Kkgc-ns-Ttsk, Cough, Adult, Myud-od-Qoiu, Cough, Adult, Sore Throat, Mqdn-yu-Gacx. Prescriptions for Bromfed DM 2-30-10 mg/5 mL Oral syrup - take 10 milliliter by ORAL route every 6 hours; 16 milliliter, Zithromax 500 mg Oral Tablet - take 1 tablet by ORAL route once daily for 4 days; 4 tablet, Medrol (Ras) 4 mg Oral Tablets, Dose Pack - take 1 tablet by ORAL route as directed - follow package instructions; 1 packet. and Forms are Medication Reconciliation Form, Thank You Letter, Antibiotic Education, Prescription Opioid Use. Follow up: Private Physician; When: 2 - 3 days; Reason: Recheck today's complaints, Continuance of care, Re-evaluation by your physician. Problem is new. Symptoms have improved. madyson
--- NOTE | 2020-03-22 16:48 | ER ---
Nurse's Notes [facility] Name: Vanessa Gonzalez Age: 44 yrs Sex: Female : 1975 Arrival Date: 03/22/2020 Time: 12:31 Bed 16 Private MD: Diagnosis: Bronchitis, not specified as acute or chronic;Acute pharyngitis;Cough Presentation: 03/22 12:38 Chief complaint: Patient states: my throat is sore and i am feeling shortness of tw2 breath, i was tested for covid on March 07, it came back negative and i was under the care of my pcp Dr. Parker and she said it was it was laryngitis and it hasnt gone away, i have like tightness in my chest and i feel short of breath, and this sore throat is not going away and i am fatigued. it hurts when i take a deep breath, i am using flonase for the nasal congestion, im not sure if i am dehydrated or what. Coronavirus screen: Patient reports a cough. Patient reports shortness of breath or difficulty breathing. Patient denies measured and/or subjective temperature greater than 100.4F prior to today's visit. Patient denies travel on a cruise ship or to a country the [facility] currently lists as an affected area. Patient reports contact with known and/or suspected case of COVID-19. Prior COVID test collected on: Tested March 07 with Negative results at the [facility]. Ebola Screen: Patient denies travel to an Ebola-affected area in the 21 days before illness onset. Initial Sepsis Screen: Does the patient meet any 2 criteria? No. Patient's initial sepsis screen is negative. Does the patient have a suspected source of infection? No. Patient's initial sepsis screen is negative. Risk Assessment: Do you want to hurt yourself or someone else? Patient reports no desire to harm self or others. Onset of symptoms was March 22, 2020. 12:38 Method Of Arrival: Ambulatory tw2 12:38 Acuity: ANDREW 3 tw2 12:43 Note pt states "i saw dr. parker Friday and she gave me monelukast, but it isnt helping". tw2 Triage Assessment: 12:42 General: Appears in no apparent distress. obese, well groomed, Behavior is calm, tw2 cooperative, appropriate for age. Pain: Complains of pain in uvula, left aspect of posterior pharynx and right aspect of posterior pharynx. EENT: Reports nasal congestion nasal discharge. Respiratory: Reports shortness of breath at rest on exertion cough that is dry. 12:51 Respiratory: Airway is patent Respiratory effort is even, unlabored, Respiratory tw2 pattern is regular, symmetrical. 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: 12:50 LMP N/A - Hysterectomy tw2 Historical: - Allergies: 12:43 Ketorolac; tw2 12:43 Morphine; tw2 - Home Meds: 12:43 Xanax 0.5 mg Oral tab 1 tab 3 times per day [Active]; Repatha Syringe 140 mg/mL tw2 subcutaneous syrg 1 mL every 2 wks [Active]; Protonix Oral [Active]; nadolol 10 mg Oral tab 1 tab once daily [Active]; losartan-hydrochlorothiazide 100-25 mg Oral tab 1 tab once daily [Active]; amlodipine 2.5 mg tab 1 tab once daily [Active]; - PMHx: 12:43 Anxiety; Depression; GERD; High Cholesterol; Hypertension; Pacemaker; prolonged QT tw2 interval; TIA; - PSHx: 12:43 Cholecystectomy; Hysterectomy; lap band; ; Carpal Tunnel Repair; tw2 - Immunization history:: Adult Immunizations. - Social history:: Smoking status: Patient/guardian denies using. - Family history:: not pertinent. Screenin:51 Abuse screen: Denies threats or abuse. Nutritional screening: No deficits noted. tw2 Tuberculosis screening: No symptoms or risk factors identified. Fall Risk None identified. Assessment: 14:10 General: Appears in no apparent distress. Behavior is calm, cooperative. General: iw Reports chills for fever for. Pain: Complains of pain in right upper quadrant and left upper quadrant. Neuro: Level of Consciousness is awake, alert, obeys commands, Oriented to person, place, time, situation, Moves all extremities. Full function. Cardiovascular: Patient's skin is warm and dry. Respiratory: Reports shortness of breath on exertion cough that is Airway is patent Respiratory effort is even, unlabored, Respiratory pattern is regular, Breath sounds are clear bilaterally. 14:10 EENT: Throat is clear. iw 15:28 Reassessment: Patient appears in no apparent distress at this time. Patient and/or iw family updated on plan of care and expected duration. Pain level reassessed. Patient is alert, oriented x 3, equal unlabored respirations, skin warm/dry/pink. 16:08 Reassessment: Patient appears in no apparent distress at this time. Patient and/or iw family updated on plan of care and expected duration. Pain level reassessed. Patient is alert, oriented x 3, equal unlabored respirations, skin warm/dry/pink. 03/23 10:59 Reassessment: PUMaxime# [id number], Akiko in outside lab notified. hb Vital Signs: 03/22 12:38 BP 156 / 109; Pulse 83; Resp 18; Temp 97.9(TE); Pulse Ox 99% on R/A; Weight 101.6 kg tw2 (R); Height 5 ft. 2 in. (157.48 cm); Pain /; 14:50 BP 144 / 94; Pulse 60; vc 15:32 BP 142 / 95; Pulse 59; Resp 16; Pulse Ox 100% on R/A; iw 16:09 BP 124 / 94; Pulse 59; Resp 16; Pulse Ox 99% on R/A; iw 12:38 Body Mass Index 40.97 (101.60 kg, 157.48 cm) tw2 ED Course: 12:31 Patient arrived in ED. fj1 12:41 Triage completed. tw2 12:41 Arm band placed on. tw2 12:44 Bed in low position. Call light in reach. tw2 12:57 Eliot Hair MD is Attending Physician. [facility] 13:00 Marsha Philip, RN is Primary Nurse. iw 13:53 XRAY Chest (1 view) In Process Unspecified. EDMS 14:50 Inserted saline lock: 20 gauge in left antecubital area, using aseptic technique. iw 17:31 No provider procedures requiring assistance completed. IV discontinued, intact, iw bleeding controlled, No redness/swelling at site. Pressure dressing applied. Administered Medications: 14:53 Drug: NS 0.9% 1000 ml Route: IV; Rate: 1 bolus; Site: left antecubital; iw 16:36 Drug: Rocephin 1 grams Route: IV; Rate: per protocol; Site: left antecubital; iw 16:36 Drug: Zithromax 500 mg Route: PO; iw 17:00 Follow up: Response: No adverse reaction iw 17:14 Drug: Aspirin 162 mg Route: PO; iw 17:20 Follow up: Response: No adverse reaction Outcome: 16:47 Discharge ordered by MD. coughlin 17:28 Discharged to home ambulatory. iw 17:28 Condition: good 17:28 Discharge instructions given to patient, Instructed on discharge instructions, follow up and referral plans. medication usage, need to remain quarantined until COVID results are negative Demonstrated understanding of instructions, follow-up care, medications, Prescriptions given X 3. 17:29 Patient left the ED. iw Addendum: 03/24/2020 22:38 Addendum: Other pt requesting updated on COVID 19 swab, spoke with Edel in the lab, rigo Hollingsworth stated that the results are anticipated to come in tomorrow, pt informed, pt stated understanding of results pending until tomorrow per Lab. 03/26/2020 08:21 Addendum: Other pt notified of negative COVID result. i w Signatures: Dispatcher [employer] EDMS Ney Herrera RN Eliot Ram MD MD cha Williams, Irene RN MARIA R Elisa Nogueira RN Neetu Coronado RN RN 2 Yohana Roman RN Festus Layne vc 1 Corrections: (The following items were deleted from the chart) 03/22 12:41 12:38 Chief complaint: Patient states: my throat is sore and i am feeling shortness of tw2 breath, i was tested for covid on March 07, it came back negative and i was under the care of my pcp Dr. Praker and she said it was it was laryngitis and it hasnt gone away, i have like tightness in my chest and i feel short of breath, and this sore throat is not going away and i am fatigued. it hurts when i take a deep breath, i am using flonase for the nasal congestion, tw2 16:10 16:09 BP 249 / 4; Pulse 59bpm; Resp 16bpm; Pulse Ox 99% RA; iw iw
[2020-03-22] MEDS ORDERED: ACETAMINOPHEN 500 MG TAB ONE (17:08)
[2020-03-22] MEDS ORDERED: ASPIRIN 81 MG CHEWABLE TABLET ONE (17:08)
[2020-03-22 17:50] VITALS: TEMP 97.9
[2020-03-22 17:54] VITALS: BP 124/94; O2SAT 99
--- NOTE | 2020-03-23 07:16 | EKG ---
Test Date: 2020-03-22 Test Time: 16:57:29 Stock Manager: DUNIA MEASUREMENT RESULTS: Intervals: Rate: 60 KS: 148 QRSD: 98 QT: 502 QTc: 502 [place]: P: 5 KS: 148 QRS: 4 T: 12 INTERPRETIVE STATEMENTS: Electronic atrial pacemaker Minimal voltage criteria for LVH, may be normal variant Nonspecific T wave abnormality Prolonged QT Abnormal ECG Compared to ECG 08/30/2019 13:32:17 Left ventricular hypertrophy now present T-wave abnormality still present Electronically Signed On 03-23-20 07:15:12 CDT by Hill Self
== END 2020-03-22 17:29 | disposition home or self-care (01) ==
LOC: ER 12:25
DX: J40 Bronchitis, not specified as acute or chronic (principal); J02.9 Acute pharyngitis, unspecified; F41.8 Other specified anxiety disorders; K21.9 Gastro-esophageal reflux disease without esophagitis; I10 Essential (primary) hypertension; Z86.73 Personal history of transient ischemic attack (TIA), and cerebral infarction without residual deficits; Z20.828 Contact with and (suspected) exposure to other viral communicable diseases; Z88.6 Allergy status to analgesic agent
CPT/HCPCS: 93005; 87040 ×2; 87070; 85025; 80048; 36415; 83735; 85379; 80076; 87081; 81003; 84484; 83690; 83880; 87804 ×2; 71045; 96374; 99284; U0001; J0696; J7030

== ENCOUNTER 2020-03-31 07:59 | Emergency (ER) | payer OTHER ==
--- OUTSIDE RECORDS SUMMARY | 2020-03-31 08:02 | XMS REPORT | Clinical Summary ---
:1975 Author Organization [facility] Address [address] [place] [address] Care Team Providers Name Role Phone Asked, [...] INFLUENZA VACCINE 05/13/2020 Implants Implanted Type Area Wool Sampler Device Shelf Model / Identifier Expiration Serial / Date Lot Joshuaquinton Guerra - [id number] - [id number] Cardiac N/A: LAZARA LEI 01/25/2020 [id number] / Implanted: Qty: 1 on 10/28/2018 by Yogesh Contreras Jr., M D at [facility] [address] Pacemaker N/[employer] [id number] / Generators [id number] S Lead [id number] Active Sc Sprint 55 Cm - [id number] Cardiac Pac ing N/A: [employer] CRM 07/10/2020 [id number] / Implanted: 10/28/2018 at [facility] [address] (Quantity not on file) Manju ds or N/[employer] [id number] / Electrodes or [id number] Accessories Lead, Bipolar Active Fixation Atrial Zohaib roid Eluting 45 Cm Capsure Fix Novus System - [id number] Cardiac Pacing N/A: [employer] CRM [id number] / Implanted: 10/28/2018 at [facility] [address] (Quantity not on file) Manju ds or N/[employer] [id number] / Electrodes or [id number] Accessories Results Not on fileafter 03/31/2019 Advance Directives For more information, please contact: [phone] Type Date Recorded Patient Coremaking Supervisor Explanati on Advance Directives, Living Will and Medical Power of Radio Sportscaster
--- OUTSIDE RECORDS SUMMARY | 2020-03-31 08:03 | XMS REPORT | Clinical Summary ---
:1975 Author Organization [facility] Address [address] [place] [address] Care Team Providers Name Role Phone Alison [...] learance 08/26/2019 Outside Orders Central Scheduling Ang, [facility] surgery status (Primary Dx); Darian Luciano MD Abdominal pain, LUQ; Gastroesophagea l reflux disease, esophagitis presence not specified; Pre-operative c learance 07/29/2019 Surgery Gastroenterology Maya Knowles MOTILITY MD Tian 07/29/2019 [facility] Gastroenterology Maya Knowles Encounter MD Tian 07/23/2019 Anesthesia Event Gastroenterology Concha Andrews, ARA 07/23/2019 Surgery Gastroenterology Ang, UPPER ENDOS COPY,BIOPSY Darian Luciano MD 07/23/2019 [facility] Gastroenterology Ang, Encounter Darian Luciano MD 07/21/2019 Hospital Pre-Admission Testing Encounter after 03/31/2019 Social History Tobacco Use Types Packs/Day Years [...] Testing 04/26/2020 Hospital Encounter Plasencia-Dana Li MD [address] [place], [place] [address] [phone] 04/26/2020 Surgery Plasencia-DARREN Li R EMOVAL Juliet Georgia, MD GASTRIC BAND [address] [facility] [address] [place], [place] [address] [phone] Procedures Procedure Name Priority Date/Time Associated Diagnosis Comme nts XR CHEST 2 VIEWS Routine 08/26/2019 2:40 PM Bariatric surgery Results for this COMPOUND FILLER status procedure are in Abdominal pain, LUQ [...] reflux disease, esophagitis presence not specified after 03/31/2019 Results XR chest 2 views (08/26/2019 2:40 PM COMPOUND FILLER) Specimen Narrative Performed At FINAL REPORT GE RIS History provided: Bariatric surgery, abd ominal pain CHEST PA AND LATERAL COMPARISON STUDY: 01/01/2019 Heart size normal. Dual lead left subcla vian ICD. Lungs clear and vascularity normal. Signed: Jc Tobar MD Report Verified Date/Time:08/26/2019 15:35:48 Reading Location: [facility] Reading Room - [facility] F1 1.310.12 Procedure Note Interface, External Ris In - 08/26/2019 3:38 PM COMPOUND FILLER FINAL REPORT History provided: Bariatric surgery, abd ominal pain CHEST PA AND LATERAL COMPARISON STUDY: 01/01/2019 Heart size normal. Dual lead left subcla vian ICD. Lungs clear and vascularity normal. Signed: Jc Tobar MD Report Verified Date/Time: 08/26/2019 1 5:35:48 Reading Location: [facility] Reading Room - [facility] F1 1.310.12 Performing Organization Address City/State/Zipcode Phone Number GE RIS REPORT OF PROCEDURE - ENDOSCOPY URL (07/23/2019 7:31 AM CDT) Narrative Performed At This result has an attachment that is no t available. Tissue Exam (07/23/2019 7:22 AM CDT) Case Report Surgical Pathology Report Case: [id number] Authorizing Provider:Darian Quigley MDCollected: 07/23/2019 0722 [facility] Ordering Location: [facility] Endoscopy Received:07/23/2019 1333 Services Pathologist: Lea Santillan MD Specimens: A) - Biopsy, Gastric, r/o H. Pylori B) - Biopsy, Esophagus, at 36cm r/o Nicholson's Esophagus DIAGNOSIS A. STOMACH, RANDOM BIOPSIES: - CHRONIC INACTIVE GASTRITIS B [facility] - NEGATIVE FOR HELICOBACTER PYLORI ORGANISMS B Y WARTHIN STARRY STAIN - NEGATIVE FOR INTESTINAL METAPLASIA, DYSPLASI A, MALIGNANCY B. ESOPHAGUS, 36 CM, BIOPSY: - JUNCTIONAL MUCOSA WITH REFLUX ESOPHAGITIS - NEGATIVE FOR INTESTINAL METAPLASIA, DYSPLASI A, MALIGNANCY Signing Pathologist Direct Phone Line: CPT Code(s) 89785S4 [facility] ALTH [address] [facility] ER SPECIMEN SOURCE A. Biopsy gastric, description C [facility] rule out H. Pylori. Biopsy [facility] esophagus, description at 36, rule out Nicholson's esophagus GROSS DESCRIPTION Specimen A. Received fixativ e in a container labeled with the patient's demographic information and surgical accession number are two fragments 0.4 x 0.2 x 0.1 cm in aggregate submitted in block A1. [facility] ER Specimen B. Received fixativ e in a container labeled with the patient's demographic information and surgical accession number is one fragment 0.3 x 0.1 x 0.1 submitted in block B1. HL/ew SPECIAL STUDIES The interpretation of this c ase included the use of immunohistochemistry or special stains. [facility] ER Control Slides Examined: In -house known positive controls were evaluated along with the test tissue. These control slides run alongside of the patients sample show appropriate staining. Internal posit brian and negative controls when available are joselin klukarni Immunohistochemistry johnson ralph testing was performed at [facility], Pathology Laboratory where it was developed and its performance characteristics were determined. It has not be en cleared or approved by [facility] U.S. Food and Drug Administration. The FDA [...] Tissue - Biopsy, Esophagus Performing Organization Address City/State/[facility] Phone Number [facility] [address] [place] [address] CENTER after 03/31/2019 Insurance Payer Benefit Plan / Group Subscriber ID Type Phone A ddress C[employer] - MGD CARE CIGNA HMO/POS/OPEN ACCESS xxxxxxxxxxx HMO/POS Advance Directives For more information, please contact:[address] [phone] Code Status Date Activated Date Inactivated Comments Full Code 07/23/2019 5:59 AM 07/23/2019 10:56 AM This code status was determined by: Patient
--- OUTSIDE RECORDS SUMMARY | 2020-03-31 08:04 | XMS REPORT | Continuity of Care Document ---
:1975 Author Organization [facility] t Address [address] [place] [address] Care Team Providers Name Role Phone Asked, [...] olsen [employer] - MGD xxxxxxxxxxx [facility] [employer] - Medical HMO/POS/OPEN Center ACCESSxxxxxxxxx xxHMO/POS [...] Date Quantity Comments Source History SDOH Alcohol [facility] Std Drinks [facility] History NHOH Alcohol [facility] Binge [facility] Sex Assigned At [facility] History SDOH Alcohol 2019-07-21 2019-07-[address] [facility] - Frequency 00:00:00 00:00:00 [facility] Smoking Status Start Date Stop Date Source Never smoker [facility] Medications Ordered Filled Start Stop Current Ordering [...] Source Systolic blood 2019-07-29 15:38:00 162 mm[Hg] [facility] Diastolic blood 2019-07-29 15:38:00 102 mm[Hg] [facility] S t [facility] Heart rate 2019-07-29 15:38:00 62 /min [facility] Body temperature 2019-07-29 15:38:00 36.33 Jessica [facility] Respiratory rate 2019-07-29 15:38:00 18 /min [facility] Oxygen saturation in 2019-07-29 15:38:00 100 /min [facility] Arterial blood by Medical Ce nter Pulse oximetry Body height 2019-07-23 06:11:00 157.5 cm [facility] Body weight Measured 2019-07-23 06:11:00 103.329 kg [facility] BMI 2019-07-23 06:11:00 41.67 kg/m2 [facility] Procedures Procedure Date / Time Performed Performing Clinician Deepti e XR CHEST 2 VIEWS 2019-08-26 14:40:00 Darian Fry [facility] MOTILITY 2019-07-29 15:00:00 Maya Knowles [facility] REPORT OF PROCEDURE - 2019-07-23 07:31:40 Darian Fry [facility] ENDOSCOPY [facility] TISSUE EXAM 2019-07-23 07:22:00 Darian Fry [facility] UPPER ENDOSCOPY,BIOPSY 2019-07-23 07:00:00 Darian Fry [facility] Plan of Care Planned Activity Planned Date Details Comments Source Future Scheduled Test 2020-05-13 INFLUENZA VACCINE [facility] [facility] 00:00:00 [code = INFLUENZA VACCINE] Future Scheduled Test 1997 Screening for [place] [facility] 00:00:00 malignant neoplasm of cervix (procedure) [code = 832708415] Future Appointment 2020-04-[address] [facility] - 08:00:00 Hemanth THOMPSON, Medical Ce nter [address] 8th [address], [place] [address] Encounters Start End Encounter Admission Attending Care Care Encounter Source Date/Time Date/Time Type Type Clinicians Facility Department ID 2019-12-02 2019-12-02 Office Allyn DIAZ [id number] 10:01:30 12:40:44 Visit Dana james AMBULATOR 350.1.13.21 G Y 0.2.7.2.686 [id number] 2019-07-16 2019-07-16 Office EMILY Tirado [id number] 21 13:41:03 15:14:00 Visit [place] AMBULATOR 350.1.13.21 Y 0.2.7.2.686 [id number] 2019-06-16 2019-06-16 Office EMILY Tirado [id number] 10:26:53 13:08:19 Visit [place] AMBULATOR 350.1.13.21 Y 0.2.7.2.686 [id number] 2019-05-12 2019-05-12 Office Kace[place]ary EMILY [id number] 12:57:08 15:12:24 Visit Darian AMBULATOR 350.1.13.21 Y 0.2.7.2.686 [id number] Results Test Description Test Test Comments Results Result [facility] e Time Comments RAD, CHEST, 2 2019-08- Reason for FINAL REPORT VIEWS 14 Exam:->bariatric PATIENT ID: 15:35:00 surgery status; [id number] History abdominal pain,LUQ, provided: Gastroesophageal Bariatric surgery, reflux abdominal pain disease,esophagitis CHEST PA AND presence not LATERAL COMPARISON specificied, STUDY: 01/01/2019 pre-operative Heart size normal. clearance Dual lead left subclavian ICD. Lungs clear and vascularity normal. Signed: Jc Tobar Verified Date/Time: 08/26/2019 15:35:48 Reading Location: [facility] Diagnostic Imaging Reading Room - [facility] F1 1.310.12 chest 2 views 2019-08- Interface, [facility] St 14 External Ris In - [facility] - 15:35:00 08/26/2019 3:38 Medical PM [facility] History provided: Bariatric surgery, abdominal pain CHEST PA AND LATERAL COMPARISON STUDY: 01/01/2019 Heart size normal. Dual lead left subclavian ICD. Lungs clear and vascularity normal. Signed: Jc Tobar Verified Date/Time: 08/26/2019 15:35:48 Reading Location: [facility] Diagnostic Imaging Reading Room - [facility] F1 1.310.12 Tissue Exam 2019-07-27 09:50:00 Test Item Value Reference Range Interpretation Comme nts Case Report (test code = 104) Surgical Pathology Report Case: [id number] Authorizing Provider: Darian Fry MD Collected: 07/23/2019 0722 Ordering Location: [facility] Endoscopy Received: 07/23/2019 1333 Services Pathologist: Lea Santillan MD Specimens: A) - Biopsy, Gastric, r/o H. Pylori B) - Biopsy, Esophagus, at 36cm r/o Nicholson's Esophagus DIAGNOSIS (test code = 3220) j7yffGJcOOGax1jaWEQedHGgImHtXzOiZgGuSi pcdW WqBZxnukUiKCmhh1TzY5DsDyLfXCjvhuJaYPCoHbhy akxdGSWnCKB4prQkZFVrEZmgUSNkKQmdDl5xjGFcuH icPmNqBXTxb4xlvzZVrxmkoGm4q0haBYNwNqT9kZPi SHvjD2ipxjTjkAQvUUSjPGf2wA56QFVltY5lxOEaCF emxbHySZvdpjUszmJjXmk3YJWrX4wdBCHqPAVuM6Lb OJ3sDXTkMou7NOD8KSY4iKqpj5H2fBLjpZHjcGukVk AcMyPyCMYFs7DaPZo1eWqeL6KhDCFwPtN6gIQqPWBx BAepWNUzVBElcpU7uP11BNjhgrB8cFMqw1Unh13ff3 52dJ2zjHTiLWK7PRKtLOTddNZbTZXyIHR3BPAmuNXv S8n7ZuFhuWYhT3C5WzCqnRRhX7M7VfIqzZXeR6H9Xo UdyENxHAGjbZJrJm7hnMJdmZNvkq0osl21QJS6t2Ce zYngHPS9YIH9UzIzGv8xgUGgGVYuDL9tHuWsnWKoGK Xbhp17iVonSRmbcfIdpP8aDsXpMC7vyAmvq76mGWZu FD2ytW1gpd3qsdYlMWcevJWaaCI1ymxyZYC4VKUadi Xno6Hdi2tlUxMgojMyP2meG2BcCWJoCHGcRIRrTkHh ydKzw9Nqt2ImhLLcbEk0t4foGPKgEAJauDkrk4dzWX E7AIPcX6C0oCBde9fqWPotXXQapWB2kprwUQinRBFc ysF5ncnbEXgeAIJlhOI1rhkkYXmvYPJyYdU7srooKE ktNKYsRZJ3LTglq678CWP5GUeoWwhrZOlpOOPjnwHf bnRccGduZGVjXHBsYWluXHBsYWluXGYwXGZzMjBccG JkJWedo5LmgeJauHhiTZZuISp9ssEoddjayTl0kCWl aMouNLOqeUkzxD4mHmRtHpOjDXlswGDafjbcROktqy IwIEEuIFxwbGFpblxmMVxmczIwXGxhbmcxMDMzXGhp R3pgNfHsHIZveTgfFDfnu2IgHGWxGAFlODpqibCiMJ b8bnFgNZLMH20YJ2xkZKjmcDPjpzhdZSnjfsSgKAUB RyVZGJXsrGtglM6sPzUkVtNmHMxySQ4iSIToP7rswX NaAFYkKYFkS0fdLyKxkR3mpBfvEKttOyRhNwZdVWaz aLRjiVPTRK6MG9akmIVcakqyAQucryElGPfKD1nepS ZqliayEIooirMzVPkfzyuzXZIpPRapG9rjAhXxOIEs uTpaGXpee9RmIMOuQCVnZKftnkWzQIu0gsKsHSzfoF FyXHBsYWluXGYxXGZzMjAgIFxwbGFpblxmMVxmczIw IZxxzyxxLGApWUqiH1zoYrLzMBRbaTgsCZtvk5TfAF PfOAHuBCbjiwZqFTs2wiZlAM5wqYmbbX8kHlWkOrLs MCAgXHBsYWluXGYxXGZzMjBcbGFuZzEwMzNcaGljaF otNYzeKqDeUBVeTGmiG5ugGgHjI5NfMSWxFuNmsKWg P5bxIJQYRd9CQKQlXO3XI7QRDdXjQ8PMKJAWLEtQFG XmPCyrCLGgQIFsRsCifJElSQTxdRudyS0jEnBbDeSr IRlqXQ2uOAVyN9gfsOUzXTIsUJWlH1lyYwIqfQ5fyP xmMVxjZjFcZnMyMFxsdHJjaCAtXHBsYWluXGYxXGZz MjAgIFxwbGFpblxmMVxmczIwXGxhbmcxMDMzXGhpY2 hzUoBoXEWjbWmoQXlui6GzELMcCZVwLIeyoyEtRWn8 orLfSPLEKWhBKIpLHDCFQ0OqSNQSPPGSYeFLVUFNLR IFWY1BACXYKjvZLdkMUSTyNtonN7GUPKbJHuZCEMMF ApqgM7DUXW1xcPZdCODcooVqs8HmTJKzLXW4KEgsKE xxbFxwbGFpblxmMFxmczIwXHBsYWluXGYxXGZzMjAg XIwjgZDevdloTRtgvbYuAJmofsorUOYsOCdvJ2efOu UbDTMyoClfSFrjf1BuYZXaKXTqAUsunsSsPDh1ipHs HL8ihLgocN0xNvZmWtCfFPHnCTKjBRzeYNQrBIThCq OxbXWpOrKwYlAmaWfxaVleHJmrZyZmROFrGLnxR6fi BqTnG5EwIINbFvTlgILrL6exGY9CU7LUQEHFLTFJUu IPSoBIV4JGVbMGKB1VFVLURHXUYBVwWJXHI3TJFQUO YRmfGJBNFLhBSG6ITQrbgXDaqqxpMUrvcoHwPVYony bdDOReKc3hKHDBULaVQ1KTZCNqTfIISMykGjeGVGAH IaroXIUcbVHrPSzvj0YtvoXwwQevXIQhWJq3niUbdc hokVv9cLKpdWokTXVsfDrclB1wVmPnKtXiOCstbGLq qrxqXGmzuaJlFDnyzajkROPlPXotG3pgXrRgOSUhjC ifROxyl0RqFXAxJSPqCPriqzXmQUf5vzNyDHLfLUlz yXYtdpofYNidatBjDKCkoQbgfC6mNfYrItYbPKojQX 1dZZOeH9ttkEUjZPLbDQKoD7lyBiStqV5goCdtRDox UtWdNoYeOSbyhTYjdRYILJ7GFSxQHdXXZI8LD62IBB ZSVAIQHAlhoJQopbufWHkyydPrJLXFKywYBUDLA41R GPRPKNZCK8pyNXYkgVCdSAjgiZTjbyfbPTalkjRcJX BsYWluXGYxXGZzMjAgIFxwbGFpblxmMVxmczIwXGxh kssdWXAaMFdlI8ykRzHeIKBevQfgUVpjd3ZwCNKiLC XwSTrbwyGeHRm1lyHpTB2paJtayP4kPaPiNsQwXFRb XHBsYWluXGYxXGZzMjBcbGFuZzEwMzNcaGljaFxmMV jzHsRePFMwALdmO3maYuGqK7CoXIGtPxBveMPnB2jx SS8QV1FULBFUBCLQPdMMMdMKK1XYUjLFYO9URIOBRP TPPPYlWISGH1MAOZDPMEsyDMZCAXbYJM4TKLnfsEXy bprsGFujdmPwTPVilk49ZKZ5FkIyn9H3ABD1JJOwMN Glr1vmGFUtvBYsDnPvOiOwRzZpDtredXEtLVPyToLv t4iss408cVPqh2epAWAwEdI2pTXiGZQirLGgS417RI GiIXvwa2fye9TcZTDiiPGze2D2UUVYpylyrEe6vAna W71eh6Q6OquqM6ggZLKfIHFaC0WzPK6wUCGxNlg2FG K8ONP1AERaYUWkT1AnGD7lFVQvnJDhZYj3n8tniRik QFHtLFS7e0bwMOiahzKmJW0abf1ebIp0g0umboJlJX ArZIIbwOORBJVuD6DxfTebGg7jqDp2bUexBjhiWYS6 Zlr3NC4tzk28tmf7xDxzWFCmcoltGpB2KKxnEQCpgr ayOZh3FNshIGWswFY3TBKmwHVcH0UsMNItXA5howa8 VNG0UTvsIMFzXtC6UXTujOTcTJFgwWcpCIsro992AT M5RsUwZL0lN6Lew8V0sC4jqXOwLRSqfNCpBnRtETSe hm4rxDTtIScyl0MhYCB4diK6rZDqeREeZHIbUbX2CK yfPO1cdb93VXFxMVI5sc1kuUPibHfppnWriTJlHVkr N9PmJRMrh047JLUyN4WxAQOjq8J1ybAkQqHsMWJxsH B3jlV4ENOlHF8deaxfv6hqKDekIPicRLVtmkU4mxQ7 CSHviPBpZ7KhhU9xGQHgUY9uqqaxh2dwHMC0FIfvEC BqLIH9MaScORYqw1Wkvng6VcDoi4WniFQuTKgfF50n n555BUAascHiN3gmiGXeskvtiURqxfgpBLztbgC8BC QgICjfkhciJVMwJVjeH2wbNiTnVPQzuTciTPrka8De QQTjTFPePiVesURmETJvHwe6YBAsrDBpIWWdIvSbP9 ioinzgPtIBRYLzs1vgO1dqhHHBxHZyQ4XcZOvnpdPz DBobGBkxDUL6CWO1Ez82HoA7JOTplw30 CPT Code(s) (test code = 3357) r9lhqYTkRKQooIGaAgGsQYUeJOIpy5faGFUl bGFuZz KeCmXzSnAhBldlwSHtNZNkFcWea7jby443tVJef8ls LLGsHaL5sHFfOGXbuDNeC061x2cbc8vjwvCwzHB0PN ZlEIJ6EXoshoIbznC0FTkjlVWdGpZ7SQutsdKgLPhg wyFvnpPfYic0MDZeQ100JCO5jGryv9ivVGW4WSCvDU VgTkPcPv9khQZqP244TQSdMSIPWDXqsDb2RTOkibDj smJbsEVDy946J266r2wxBUBzmhGggIdRowlna8ooW1 72CKFycHNncpVdYsCvEMPfuFClqIL6MRNnYO7qdtlf MiXtCS3banduWcJuMN2uvqj2ZeMeRY8adbjaLdCzCH eeTWNvljosDVAzi6IojxkqUT7aE4Muh4Z6fV7jsSJg UOWzvSNvOcIhEIKfpd6vnWIwISkcu8NlVCT3ocH2qI McvYScYLLpKF09Zacmc9AgRnieHHF6QNGsirTyc5Qz s3gzYeVcklYbW3zzK2LrCWYqHICrDHKdEvLpymDvd8 Uui0JqrVKvsCe9t1ieQNRvKFAeiEssh2ntRGD1RGNp P7W2fERgo9joNFrzEOXyoLU7zaovODulNDFgzzL7jg acUNslSHJfwWV7fhjrZZwwDDOsXxS0nylcJOrgKXPa JJD5VYrut129QEZ0LPxmWpacGCunQYAonhAuiyTreT duZGVjXHBsYWluXHBsYWluXGYwXGZzMjRccWxccGxh eN2mHvJlGoRaSOrqFZ5oTFSrD6oprEWbAHGdVKDbC9 rfMvMvtS1fkPorCKvcqgSoMCk5AsH5IJJgdMDdHBf7 MzEyXHBhcn0= SPECIMEN SOURCE (test code = 3377) k1dpvIUnXUIqjYMwTtVyUKVvDKHoz8ll ZGVmbGFuZz YkCqIcExTxCzdfqBMhMZLxLgTea1lem662cEJzv6lk QZAjHyE1kFHeMAIrvIVjI296r4prp9mzlxHugUO5UJ CvORQ9WYhvltIafdH5CDszbCYvXkL6IVlkkdIdJPqp tjPinhIaKzc2HAJlB534DQS6eZkwm4mbDVM5MZUnQI NnIkMpLg1koXGaK124VYNbNEEZDZRmjLq1PKToluVb loWckFSSy970Q470g9xbQFAlkpLchQbPalwwh7kcU7 59BLAzeHUphnKrUcNfHXFglSWdlBA3OZAvAX6ngdne CuFfLS6nzxykEoDsPJ8pfek1OkKiMB2wsgzyPaYhGQ drHDOgipwbZVYau7LrnmctFW5aW0Frf0R4fI8qeLHc QGBueDLqSpSfWFIcdm7bxLBzWAasl1AwTLA7llS5lV AmzFAwOEUoVM85Qbkzb1TgUjavLXM7HQFnghWhd3Wk m2bxQjJkjxFsP7efR2PuYPUzZNGnHGQxNdLjchPrn5 Swj1OkhRPixKq6i5qfHSUmHIRcaHlsz0sxIZB1YGTu P8L5aKZys9flBAxcUDTigSY5axbwHZhsLHOzrkK7cy xyGGpyRDVliVG5jlkcKCxrAYTdReE3eigwWJywPLBl PDZ1KXtyz996DFL5WAtvRhbqOPfbBOFtpcIogfUfiZ duZGVjXHBsYWluXHBsYWluXGYwXGZzMjRccWxccGxh jF4bIzQfYbItANmsTX7lLOHwC7qjrAWvYUNeYXVoS3 usWbUifF9mkLqsWVnotjEwBILvBQGgi1JekANrPYJ8 mndfHYNzRHIljneklQhhomCurFyyIH72sBYFApZTlV gslrhnCFJet4UdbEZzi75tjBGbpHLeHBEvo7NnuYI1 wC4jAOV2ITP6VVLviIesFX96rZJDNFInQFI7W5LiQI KfsPgkK7FrAJfnKHL8 GROSS DESCRIPTION (test code = 3366) c6qmvIIjYPKayAHtCoCnOCU kJZBgo9aaPFEnpORbYw HvPrWcNoWzRdnbiKZeHIJtKfCuf3szz861aHNbm2db QJBsTjW5cYMoKYSpjRKzX887KMGrONshn3fhi0CiZQ OpdUGum2E5LPREgumksIv8iJsiC88gh9N1TjwhM0xy ZGYqOCNoU6GkNZ5pZUKmFpd0VQC6COG8UNSsKEBtI8 OeVY2hKMQowKNxULk8b3okhGazKSNmSOZ3c4hpSVvn laRmBM6kee4pqZq7n2xlamJmCLWxZZYsnNSCWTGyR8 IbiXwyYj6ucEu0zNcnYkmvPNB5Rqn6FA4qkq81ydq8 qCogFTAqdaavJvV1UQjzQTUiiydeRZg6TOqiDNRzkQ cyMFxtYXJncjcyMFxtYXJndDcyMFxtYXJnYjcyMFxo KHVyNEC3BBmen058QJK5WNojt0zig9tioBOnEyz2UL VkHqCfUscjDPegd4Qho5ntOVLppt9uGPF6sZKfgVsl y7L9eMPyOPMbvMTctwGlNYWaHoP9ZEinWF1dhx48YA RbKRF1cw9psBNxpWnepbTemNRbTYgsW8TnTFVoi108 BJLhI0TjQXNbo4F6lvByJwJcWMKprFP4clG3LNCeJM j3aFLpozE8qjUurCAtE1cdaZ85IoUboAAoW2YqvD47 FxWtsRHpU9UzmE25QfSulVEdV6CfsY65CzMqmXXdJE DkmBHgHi0xlWSywUZek8YruPGzWXfsA62vr529XQVb jzTfA8pxsKOizsghrLHlxfdbHHwxyfU2CFYiGUYdKA luXGYwXGZzMjBcbGFuZzEwMzNcaGljaFxmMFxkYmNo ABVaRIlfD2hhFlHqIeBzYQQXqEPdlB3hxgDFUgYFFS PsqZDrNBSofYfeiRf1NDQkriIzAQUyvlZsiD9fidRd PIJcfNShUGhjiOneaYfuTZIykRqjcuFouuYwZT5pH4 MmeRtnCnRyqaBiyj9fdZgcjnBsbnChy2PsL8guIHse ABFwNZIquG3lEM67wDAsswNdclClgVjmDZFsJOlyHK 80idWiJqMigMNcSjVknWTdDdMvR08tyC1oQDmmqcUa UAKbVZW3Ky2mjYVzUAWydoBwdG1ycmLEZY8duANwST FxayxukGMuZGFmfCrrySostB8nEsKxEnSiVHhsfCUy ehskRKcwezKiJTtiusyhIDJyDFncP9rjMpMiKSIbfQ xzHGlyi7LwYSUyLWQnQaPyH5ToG7mdJR8vFq1iCrUs HWy4TXTeZly3YDIbmpZtzX9nAANbh790FChmJCDkhI BiNAxqQWA5xYTwCPMjFUCrFWBlNR16V5NjTAKin2ek DYYyvAAwyW1pv4MkVGExf26zWK4rFIM8tczpX2MrKT DcH3Wsy7cykxGvfF0bODHasAUdo53wCTUiPDcyWJ78 JWTlJrZ6DFFtTEU2ZKEiRYUmwKPfaYC1TWIbrM7xTn xoA8kfEmHnJRSjJNljJXZdOYMyEiWnyJZyZjSzKhIs lTyzgKvpMHbnJdUePXEmZDrcZ6apOePwYdAmHOXiKK wvZXcgXHBhcn0= SPECIAL STUDIES (test code = 3376) p7ovuDGbHGIwh1gmDUBsgQWdAhWpGeSt ZnRuYmpcdW JeEUhisgKqLToki4OlB9IxTrYgVKiykuEyOPBxEnaq wmscUEAoQQH1rxPcMZUvYHcoJEOoEThfCa1knBAerV liSaJhULFtw5umbmKUthqzcAt8v3poYKXhNwW8nCVz OHumV6oxmeZsgRHeS3QyxEQyaFa5e9ffEzZgRrB5xG AzILjnT3gjrmSutMXsOOWzWEj9wT48JPBldD7pnMUo ZPewxrHfTwN5GPavWBGyNqN2IDNumRPfJLTqL0nhVG ZpKAwoNXGpEQxmwQLvCGO6cOkik0Q2mUEubGFpgTnb PdZpKiKkUlYWs3CbQEi8lRysV9BlXGRzHcI1cUUxPH CsQBzoFANmYYOoscM6vZomrnAki43ynQMiKAMsESXd MrRuxXvnJGAmOCGUv5TngDdoHVW6aZg2mLuiHbbyFH E1Onl2AT5dgs45zsc5kCncQIImwxrzAcS3JVjzUFJb kkqaOWy1NUyrLBZxjFO8ADMvgDGyN8QsUBOvSQ7lwl x9ISL4LIoqBSNvLdL2TJQzcDWySEGriOttFIbpt965 LKY2UzHdXR9pY4Kzs7I9oP6zhTKiJHYokVQvLbBgEN Xkan0wjTMyTOlyd0XhBUK0nyT4kQGfrTYnGWPuAT20 Blneh4LhMzavr0LuK63gnKA2XPmnt0nrMN9iGaW4wy FvVHoto0vypJ6oRbE6LJpxYM5ePX3cNWHkfD6gtfbb ELEaKzJyltigKUWybVnnjdFdYs3dgOnrNYT2OUhpR8 gktP1aCzZ9BDrwY2mztP6zAEr3AYpcrQY7LQQvvM0c MO8slzuuy2xpTVfbKZrxLRTvneL3drF0QUFhhNDoA5 WsuS1wLJCwAV2fcibmz0uuBKN7AUmxZDRcJAX9FtAd UAPcy0Dnlyi2AsWwv5WfcUNqMYpzI89xt210ZUExci IlS7viiKYjixmjdENxggtaSJrwioD9PXHyDUFyLVjo XGYxXGZzMjJcbGFuZzEwMzNcaGljaFxmMVxkYmNoXG WjTAjcT6xqSgFtT0YcBGCkKiHlLEquSUeyuJTawVGp tKQ5bF9eSH0eFGVqeOKcS7HoJTVzfjBtsHOlNWI6kJ MdpWGxOT6kDNtyyBLwn5jvo2GwN6xfeHwmxAQ6JS3f PXImANSoCFnka3DlnG3gHpnodLVfpiubSGucsuIdBE cokikyRHWmWKanV1dsNyPoIHUjsMedWZbiv5WwTXCr GDWkOvsaikLpTGn6scVtBLPrnwrtYVFxwFeqdW1aBw TmUnDfRyrwIA5jSKPgY3jaiYCcLGCvTPKgS6kfRzXj mN7wkTwmIQlmCiXyTzYrYaCVd493wj7yDJRteUJlqu OBpAFkbR9uKSuiWMrbKDnyrGNfYRedi6awKHOgb4n7 vGJbABEdwyMvk7ltUFmklsQqHFJbiXGuhEEsVLHcc9 0mFYvgjAlbjOwzZTRqm5JbqHomd2EnFoJeLBaad8Sv F29pkMCadEQfaUodXELamnPqTPYgu28ee0ayUOWiRp H5bMRgdTA6nXDzjORlu9YurRyuBPGjw5leSFUuwq1m xrczdRPdi2XviK3bigdwSGdyvASdseDyXMGom4o2lX BxNQJyGIAfUAkawAw5OOAfv017qr8vmhN3sWJrPTQ9 YWlsYWJsZSBhcmUgZXZhbHVhdGVkXHBsYWluXGYxXG ZzMjJcbGFuZzEwMzNcaGljaFxmMVxkYmNoXGYxXGxv L0zcPgNpT0WfJWWeFuFcvULcX3pbtKHyEZBfUDmuGP YxXGZzMjJcbGFuZzEwMzNcaGljaFxmMVxkYmNoXGYx EPloQ0sjJmLjX4NzZAGeMjZlYVghePLalymfVXoxaf LaCGvychggHHKqUXexS0ksPfHrLJTfkDbzQNtzv4Ro IFGcMUQvXbiikuIoYDq8nfDxNFWlnmamiBRdbiyzZT sweuYqSLzfebveWWXhNIjgQ0wgUlVdDUUscWwkOIaq r7QhJNRxAXJfIueckmZpERhllCLqu9hqo6JnF8zkrQ qwfUP4ZKWfO3kyeUEpmTH7KVQ1rC5aEBvogoKoJDUo j5DxRGPpDGSaNtZ6gS5rBVG7IeFTcNevZYHiYIgpBU YxXGZzMjJcbGFuZzEwMzNcaGljaFxmMVxkYmNoXGYx LVotR3ifHoJkI5VgLVHcVaMnuPbwIOfdCEe4MkvghU FsikxpRAoqetUpGOgjvlaySXZxVQakD5weWnBxBEJw uHmwDQbru9UgACEnGCRdEaxwmkDvJWCgXMLjmMCueU QAEC70QFQuNXPmnVbvbX8zkQZGMCZsuuA3q8U7MIpr CSGlCZc6UNdscoGoFYAdqE8fKZSoVJ8sRGy1fhZhQU Hjz3QhWN9lDYFwiMLkCWL4ZREsg6FgS7Ocb7DuBXBa FPTgba4dlfPlFaQJuXIvHRWjfc09QEKgRY1sF6tyTI OfCLZmqjVqbOUym2CbMUJboLI2hJXnIY6KXwNUz55k LGXvUBHOmcBmOOVegXjjmZY9puG7rS4dCjMVlWZqQz IRGYaijqTkOJBpcf6icuHwNBJjJOGbh5MdtFIeeMJu jdTmX5Fgz1IxSHAcpo52RRvyvNOpdz24NS8hP6Kps8 MfaV8oMJgkTWLxm1UfrIZkdGBtBSGnw7MsX6aplbkf HAqwwRZcbG4jTVSsGTj4BGUvi0EhRODzd5ZaIvYcdm AyEAJeVMUfNOMrvO95NCE5rKratToquuMgTO4fHXHg jrBxJKHiDOGfiX0lYBhxwcZnZWLqjjG8l8G1JPdbKH PisrWqRycnRJW7lhWilvH9vIYsL2ewpzksRNbkMAMh j1XgcE8ntQJPlNGeh0NtsRLgbEBJhKEgDT1yzyChPA 4hEYW4GDciLVWIRBCcCUdqYTPgRLA8RKhrUceiAXH8 gyYrCRPay9VdTOojP1gqW77hmIralVh2vBYgoWdqeA MkfTHhHRFowfK1y8V1MJIdu8YqnqvyEDScVVrrSKUd XGZzMjJcbGFuZzEwMzNcaGljaFxmMlxkYmNoXGYyXG keL3ujNnGfFpOuXbibTTT8qD== [facility] [id number] 09:50:00Surgical Pathology Report Case: [id number] Authorizing Provider: Darian Fry MD Collected: 07/23/2019 0722 Ordering Location: [facility] Endoscopy Received: 07/23/2019 1333 Services Pathologist: Lea [...] DYSPLASIA, MALIGNANCY Signing Pathologist Direct Phone Line: [phone] signed by Lea Santillan MD on 07/27/2019 at 9:50 [id number]. Biopsy gastric, description rule out H. Pylori. [...] evaluated Immunohistochemistry technical testing was performed at [facility], Pathology Laboratory where it was developed [...] to perform high complexity clinical laboratory testing.HEMOGLOBIN [id number] 12:55:00 Test Item Value Reference Range Interpretation Comments HEMOGLOBIN A1C (BEAKER) (test code = 4.8 % 4.3-6.1 368) LIPID [id number] 08:01:00 Test Item Value Reference Range Interpretation [...] 130-159 High 160-189 Very High >=190COMPREHENSIVE METABOLIC [id number] 08:01:00 Test Item Value Reference Range Interpretation [...] FOR DIALYSIS PATIEN TS. TSH/FREE T4 IF [id number] 06:11:00 Test Item Value Reference Range Interpretation Comments THYROID STIMULATING HORMONE 2.58 uIU/mL 0.35-4.94 (BEAKER) (test code = 772) VITAMIN B12 AND [id number] 06:11:00 Test Item Value Reference Range Interpretation [...] 0-0 (BEAKER) (test code = 413) URINALYSIS [id number] 02:49:00 Test Item Value Reference Range Interpretation Comments RBC UA (BEAKER) (test code = 519) < /HPF WBC UA (BEAKER) (test code = 520) 1 /HPF MUCUS (BEAKER) (test code = 1574) Many SQUAMOUS EPITHELIAL (BEAKER) (test 4 /HPF code = 516) URINALYSIS WITH MICROSCOPIC IF [id number] 02:46:00 Test Item Value Reference Range Interpretation [...] pg/mL 0-100 (test code = 700) TROPONIN [id number] 15:40:00 Test Item Value Reference Range Interpretation [...] acute neurological disease, and persistent tachyarrhythmia.BASIC METABOLIC [id number] 15:39:00 Test Item Value Reference Range Interpretation [...] m DATA TO CALCULA TE ESTIMATED GFR. [id number] 15:33:00 Test Item Value Reference Range Interpretation Comments MAGNESIUM (BEAKER) (test code = 2.0 mg/dL 1.6-2.6 627) RAD, CHEST, 1 VIEW, NON [id number] 15:29:00Reason for exam:->chest painIs the patient ?->UnknownFINAL REPORT TECHNIQUE: Frontal chest radiograph dated 01/01/2019. CLINICAL HISTORY: Chest pain COMPARISON STUDY: None IMPRESSION:Left-sided, dual-chamber defibrillator is in place. No pleural effusion or pneumothorax. Cardiomediastinal silhouette is normal in size. No pulmonaryedema. No fracture. Signed: Bg Zamudioeport Verified Date/Time: 01/01/2019 15:29:08 Reading Location: [facility] Radiology Reading Room [id number] 15:23:00 Test Item Value Reference Range Interpretation [...] for patients with mechanical heart valves. SCREEN, [id number] 15:23:00 Test Item Value Reference Range Interpretation Comments TEST URINE (BEAKER) (test Negative code = 583) CBC W/PLT COUNT & AUTO [id number] 15:15:00 Test Item Value Reference Range Interpretation [...] (BEAKER) (test code = 2801) CT, BRAIN/STROKE [id number] 14:33:00Reason for exam:->NUMBNESSReason for exam:->HEADACHEIs the patient [...] MDReport Verified Date/Time: 01/01/2019 14:33:00 Reading Location: [facility] Radiology Reading Room
--- NOTE | 2020-03-31 09:08 | RAD REPORT ---
EXAM DESCRIPTION: RAD - Chest Single View - 03/31/2020 8:54 am CLINICAL HISTORY: CHEST PAIN COMPARISON: AP chest March 22 TECHNIQUE: AP portable chest image was obtained 03/31/2020 8:54 am . FINDINGS: Lungs are clear. Heart and vasculature are normal. No measurable pleural effusion and no p neumothorax. No acute bony abnormality seen. No acute aortic findings. Defibrillator remains in place . IMPRESSION: No acute cardiopulmonary process. No significant change from comparison.
--- NOTE | 2020-03-31 09:10 | RAD REPORT ---
EXAM DESCRIPTION: CT - Head Brain Wo Cont - 03/31/2020 8:56 am CLINICAL HISTORY: HEADACHE, presyncope COMPARISON: Head Brain Wo Cont dated 02/04/2019 TECHNIQUE: Axial 5 mm thick images of the head were obtained without IV contrast. All CT scans are performed using dose optimization technique as appropriate and may include automated exposure control or mA/KV adjustment according to patient size. FINDINGS: No intracranial hemorrhage, mass, edema or shift of mid-line structures. No acute infarcti on changes seen. No abnormal extra-axial fluid collections. Ventricles are normal. Mastoid air cells and visualized portions of the paranasal sinuses are clear. No acute bony findings. No significant changes seen from comparison. IMPRESSION: Negative non-contrast CT head examination.
[2020-03-31 09:33] LABS: Absolute Lymphocytes (CBC) 1.5 K/uL (0.7-4.9); Basophils % 0.6 % (0-1.3); Hematocrit 43.8 % (36.0-45.0); Lymphocytes % 15.9 % (15.3-44.8); MPV 8.9 fL (7.6-11.3); RBC Red Blood Cell Count 5.23 M/uL (3.86-4.86)
[2020-03-31 09:40] LABS: Protime INR 1.1
[2020-03-31 09:52] LABS: ALT/SGPT 79 U/L (12-78); AST/SGOT 39 U/L (15-37); Albumin 3.7 g/dL (3.4-5.0); Alkaline Phosphatase 158 U/L (45-117); BUN Blood Urea Nitrogen 14 mg/dL (7-18); Bicarbonate 24 mmol/L (21-32); Bilirubin Direct 0.1 mg/dL (0-0.2); Bilirubin Total 0.6 mg/dL (0.2-1.0); Glucose Level 114 mg/dL (74-106); Magnesium 2.3 mg/dL (1.8-2.4); NT PRO-BNP 66 pg/mL (<125); Potassium 3.4 mmol/L (3.5-5.1); Protein, Total 8.2 g/dL (6.4-8.2); Sodium Level 140 mmol/L (136-145); Troponin (Emerg Dept Use Only) < 0.02 ng/mL (0.0-0.045)
[2020-03-31] MEDS ORDERED: NA CHLORIDE 0.9% 1,000 ML ONE (10:13)
--- NOTE | 2020-03-31 11:02 | ER ---
Nurse's Notes [facility] Name: Vanessa Gonzalez Age: 44 yrs Sex: Female : 1975 Arrival Date: 03/31/2020 Time: 08:01 Bed 2 Private MD: Diagnosis: Weakness;Malaise and fatigue Presentation: 03/31 08:09 Chief complaint: Patient states: "I have been feeling bad for 3 weeks now, I was tested hb for COVID twice and was negative, but I still feel bad. Yesterday I felt like I was going to pass out and my mouth got really dry." Today reports headache, chest heaviness, and generalized weakness. Denies fever. VAN NEGATIVE. Coronavirus screen: Proceed with normal triage. Ebola Screen: No symptoms or risks identified at this time. Onset of symptoms was March 2020. 08:09 Method Of Arrival: Wheelchair hb 08:09 Acuity: ANDREW 3 hb 08:12 Initial Sepsis Screen: Does the patient meet any 2 criteria? No. Patient's initial hb sepsis screen is negative. Does the patient have a suspected source of infection? No. Patient's initial sepsis screen is negative. Risk Assessment: Do you want to hurt yourself or someone else? Patient reports no desire to harm self or others. 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 - Hysterectomy hb Historical: - Allergies: 08:14 Ketorolac; hb 08:14 Morphine; hb - Home Meds: 08:14 amlodipine 2.5 mg tab 1 tab once daily [Active]; losartan-hydrochlorothiazide 100-25 mg hb Oral tab 1 tab once daily [Active]; nadolol 10 mg Oral tab 1 tab once daily [Active]; Protonix Oral [Active]; Repatha Syringe 140 mg/mL subcutaneous syrg 1 mL every 2 wks [Active]; Xanax 0.5 mg Oral tab 1 tab 3 times per day [Active]; - PMHx: 08:14 Anxiety; Depression; GERD; High Cholesterol; Hypertension; Pacemaker; prolonged QT hb interval; TIA; - PSHx: 08:14 Cholecystectomy; Hysterectomy; lap band; ; Carpal Tunnel Repair; hb - Immunization history:: Adult Immunizations up to date. - Social history:: Smoking status: Patient denies any tobacco usage or history of. Screenin:10 Abuse screen: Denies threats or abuse. Denies injuries from another. Nutritional ph screening: No deficits noted. Tuberculosis screening: No symptoms or risk factors identified. Fall Risk None identified. Assessment: 09:00 General: Appears in no apparent distress. comfortable, well groomed, Behavior is calm, ph cooperative, appropriate for age, Reports feeling ill for > 3 days, Denies fever. Pain: Complains of pain in anterior aspect of left upper chest Quality of pain is described as pressure. Neuro: Level of Consciousness is awake, alert, obeys commands, Oriented to person, place, time, situation, Reports blurred vision dizziness, weakness "all over" Denies difficulty swallowing, paresthesias numbness headache. Cardiovascular: Reports chest pain, fatigue, lightheadedness, nausea, Denies syncope, vomiting, Capillary refill < 3 seconds in bilateral fingers Patient's skin is warm and dry. Rhythm is Chest pain quality is heaviness, pressure, is located in left anterior chest wall. Respiratory: Airway is patent Respiratory effort is even, unlabored, Respiratory pattern is regular, symmetrical. GI: Reports nausea, Patient currently denies abdominal pain, diarrhea, vomiting. Derm: Skin is intact, is healthy with good turgor, Skin is pink, warm \\T\\ dry. Musculoskeletal: Circulation, motion, and sensation intact. Range of motion: intact in all extremities. 10:36 Reassessment: Patient appears in no apparent distress at this time. Patient and/or ph family updated on plan of care and expected duration. Pain level reassessed. Patient is alert, oriented x 3, equal unlabored respirations, skin warm/dry/pink. 11:40 Reassessment: Patient appears in no apparent distress at this time. Patient and/or ph family updated on plan of care and expected duration. Pain level reassessed. Patient is alert, oriented x 3, equal unlabored respirations, skin warm/dry/pink. Vital Signs: 08:09 BP 168 / 89; Pulse 87; Resp 16; Temp 98.3; Pulse Ox 100% on R/A; Weight 99.79 kg; hb Height 5 ft. 6 in. (167.64 cm); Pain 4/10; 08:39 BP 136 / 81 LA Supine; Pulse 63; Resp 12; Pulse Ox 100% on R/A; dh3 08:41 BP 137 / 84 LA Sitting; Pulse 65; Resp 12; Pulse Ox 99% on R/A; dh3 08:43 BP 128 / 83 LA Standing; Pulse 72; Resp 18; Pulse Ox 100% on R/A; dh3 10:14 BP 132 / 82; Pulse 60; Resp 12; Pulse Ox 99% on R/A; ph 11:30 BP 128 / 89; Pulse 58; Resp 18; Temp 97.8; Pulse Ox 99% on R/A; ph 08:09 Body Mass Index 35.51 (99.79 kg, 167.64 cm) hb NIH Stroke Scale Scores: 10:55 NIHSS Score: 0 kb ED Course: 08:01 Patient arrived in ED. as 08:12 Triage completed. hb 08:14 Arm band placed on. hb 08:15 Lizzette Parry FNP-C is PHCP. kb 08:15 García Gary MD is Attending Physician. kb 08:26 Nhung Ken, RN is Primary Nurse. ph 08:37 EKG done, by ED staff, reviewed by Lizzette SAWANT. dh3 08:52 XRAY Chest (1 view) In Process Unspecified. EDMS 08:55 CT Head Brain wo Cont In Process Unspecified. EDMS 09:35 Inserted saline lock: 22 gauge in right antecubital area, using aseptic technique. ph 10:11 Patient has correct armband on for positive identification. Bed in low position. Call ph light in reach. Side rails up X 1. shelter monitor on. Pulse ox on. NIBP on. Door closed. Noise minimized. Lights dimmed. Warm blanket given. 11:41 No provider procedures requiring assistance completed. IV discontinued, intact, ph bleeding controlled, No redness/swelling at site. Pressure dressing applied. Administered Medications: 10:14 Drug: NS 0.9% 1000 ml Route: IV; Rate: 1000 ml; Site: right antecubital; ph 11:42 Follow up: Response: No adverse reaction; IV Status: Completed infusion; IV Intake: ph 1000ml Intake: 11:42 IV: 1000ml; Total: 1000ml. ph Outcome: 11:01 Discharge ordered by . kb 11:41 Discharged to home via wheelchair. ph 11:41 Condition: good 11:41 Discharge instructions given to patient, Instructed on discharge instructions, follow up and referral plans. Demonstrated understanding of instructions, follow-up care. 11:42 Patient left the ED. NIH Stroke Scale - NIH Stroke Score Date: 03/31/2020 Time: 10:55 Total Score = 0 1a. Level of Consciousness (LOC) - 0(Alert) 1b. Level of Consciousness (LOC) (Year \\T\\ Age) - 0(Both) 1c. LOC Commands (Open \\T\\ Closes Eyes/Naval Gunfire Spotter) - 0(Both) 2. Best Gaze (Lateral Gaze Paresis) - 0(Normal) 3. Visual Field Loss - 0(No visual loss) 4. Facial Palsy - 0(Normal) 5a. Left Arm: Motor (10-second hold) - 0(No drift) 5b. Right Arm: Motor (10-second hold) - 0(No drift) 6a. Left Leg: Motor (5-second hold - always test supine) - 0(No drift) 6b. Right Leg: Motor (5-second hold - always test supine) - 0(No drift) 7. Limb Ataxia (finger/nose \\T\\ heel/slaughter - test with eyes open) - 0(Absent) 8. Sensory Loss (pinprick arms/legs/face) - 0(Normal) 9. Best Language: Aphasia (description/naming/reading) - 0(No aphasia) 10. Dysarthria (speech clarity - read or repeat words) - 0(Normal) 11. Extinction and Inattention (visual/tactile/auditory/spatial/personal) - 0(No abnormality) Initials: kb Signatures: Dispatcher [employer] EDLizzette Larios, SAVANA GRIFFITHSP-Suha Sanchez Patricia, RN RN Elisa Nogueira, MARIA R RN Shayla Lowe formerly [facility]
--- NOTE | 2020-03-31 11:02 | EDPHYS ---
Physician Documentation [facility] Name: Vanessa Gonzalez Age: 44 yrs Sex: Female : 1975 Arrival Date: 03/31/2020 Time: 08:01 Bed 2 Private MD: ED Physician García Gray HPI: 03/31 10:57 This 44 yrs old Female presents to ER via Wheelchair with complaints of kb Doesn't Feel Right, Weakness. 10:58 The patient presents with feeling faint, generalized weakness. Onset: The kb symptoms/episode began/occurred 2 day(s) ago. Context: occurred at work, just prior to the episode the patient experienced no apparent symptoms. Modifying factors: The symptoms are alleviated by nothing, the symptoms are aggravated by nothing. Associated signs and symptoms: Pertinent positives: chest pain, nausea. Severity of symptoms: At their worst the symptoms were moderate in the emergency department the symptoms have improved. Patient's baseline: Neuro: alert and fully oriented, Motor: no deficits, Ambulation: walks without assistance, Speech: normal. The patient has not experienced similar symptoms in the past. The patient has been recently seen by a physician:. Pt reports she has been sick with "COVID symptoms" for 3 weeks so she hasn't been eating well and has been weak. States she was at work yesterday and had an episode where she felt flush, nausea and weak. States she had taken some antibiotics in the last 3 weeks for her symptoms and she has had chest pain ever since taking them. 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 States both legs feel heavy and she feels faint. Denies shortness of breath, cough, fever, chest pain that differs from what she's had for 3 weeks. . 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 - Hysterectomy hb Historical: - Allergies: 08:14 Ketorolac; hb 08:14 Morphine; hb - Home Meds: 08:14 amlodipine 2.5 mg tab 1 tab once daily [Active]; losartan-hydrochlorothiazide 100-25 mg hb Oral tab 1 tab once daily [Active]; nadolol 10 mg Oral tab 1 tab once daily [Active]; Protonix Oral [Active]; Repatha Syringe 140 mg/mL subcutaneous syrg 1 mL every 2 wks [Active]; Xanax 0.5 mg Oral tab 1 tab 3 times per day [Active]; - PMHx: 08:14 Anxiety; Depression; GERD; High Cholesterol; Hypertension; Pacemaker; prolonged QT hb interval; TIA; - PSHx: 08:14 Cholecystectomy; Hysterectomy; lap band; ; Carpal Tunnel Repair; hb - Immunization history:: Adult Immunizations up to date. - Social history:: Smoking status: Patient denies any tobacco usage or history of. ROS: 10:56 Constitutional: Negative for fever, chills, and weight loss, Eyes: Negative for injury, kb pain, redness, and discharge, ENT: Negative for injury, pain, and discharge, Neck: Negative for injury, pain, and swelling, Cardiovascular: Negative for chest pain, palpitations, and edema, Respiratory: Negative for shortness of breath, cough, wheezing, and pleuritic chest pain, Abdomen/GI: Negative for abdominal pain, nausea, vomiting, diarrhea, and constipation, Back: Negative for injury and pain, MS/Extremity: Negative for injury and deformity, Skin: Negative for injury, rash, and discoloration. 10:56 Neuro: Positive for headache, weakness. Exam: 08:52 ECG was reviewed by the Attending Physician. kb 10:55 Constitutional: This is a well developed, well nourished patient who is awake, alert, kb and in no acute distress. Head/Face: Normocephalic, atraumatic. Eyes: Pupils equal round and reactive to light, extra-ocular motions intact. Lids and lashes normal. Conjunctiva and sclera are non-icteric and not injected. Cornea within normal limits. Periorbital areas with no swelling, redness, or edema. ENT: Nares patent. No nasal discharge, no septal abnormalities noted. Tympanic membranes are normal and external auditory canals are clear. Oropharynx with no redness, swelling, or masses, exudates, or evidence of obstruction, uvula midline. Mucous membranes moist. Neck: Trachea midline, no thyromegaly or masses palpated, and no cervical lymphadenopathy. Supple, full range of motion without nuchal rigidity, or vertebral point tenderness. No Meningismus. Chest/axilla: Normal chest wall appearance and motion. Nontender with no deformity. No lesions are appreciated. Cardiovascular: Regular rate and rhythm with a normal S1 and S2. No gallops, murmurs, or rubs. Normal PMI, no JVD. No pulse deficits. Respiratory: Lungs have equal breath sounds bilaterally, clear to auscultation and percussion. No rales, rhonchi or wheezes noted. No increased work of breathing, no retractions or nasal flaring. Abdomen/GI: Soft, non-tender, with normal bowel sounds. No distension or tympany. No guarding or rebound. No evidence of tenderness throughout. Skin: Warm, dry with normal turgor. Normal color with no rashes, no lesions, and no evidence of cellulitis. MS/ Extremity: Pulses equal, no cyanosis. Neurovascular intact. Full, normal range of motion. Neuro: Awake and alert, GCS 15, oriented to person, place, time, and situation. Cranial nerves II-XII grossly intact. Motor strength 5/5 in all extremities. Sensory grossly intact. Cerebellar exam normal. Normal gait. Vital Signs: 08:09 BP 168 / 89; Pulse 87; Resp 16; Temp 98.3; Pulse Ox 100% on R/A; Weight 99.79 kg; hb Height 5 ft. 6 in. (167.64 cm); Pain 4/10; 08:39 BP 136 / 81 LA Supine; Pulse 63; Resp 12; Pulse Ox 100% on R/A; dh3 08:41 BP 137 / 84 LA Sitting; Pulse 65; Resp 12; Pulse Ox 99% on R/A; dh3 08:43 BP 128 / 83 LA Standing; Pulse 72; Resp 18; Pulse Ox 100% on R/A; dh3 10:14 BP 132 / 82; Pulse 60; Resp 12; Pulse Ox 99% on R/A; ph 11:30 BP 128 / 89; Pulse 58; Resp 18; Temp 97.8; Pulse Ox 99% on R/A; ph 08:09 Body Mass Index 35.51 (99.79 kg, 167.64 cm) hb NIH Stroke Scale Scores: 10:55 NIHSS Score: 0 kb MDM: 08:16 Patient medically screened. kb 10:55 Data reviewed: vital signs, nurses notes. Data interpreted: Pulse oximetry: on room air kb is 99 %. Interpretation: normal. Counseling: I had a detailed discussion with the patient and/or guardian regarding: the historical points, exam findings, and any diagnostic results supporting the discharge/admit diagnosis, lab results, radiology results, the need for outpatient follow up, a family practitioner, to return to the emergency department if symptoms worsen or persist or if there are any questions or concerns that arise at home. 03/31 08:25 Order name: Basic Metabolic Panel; Complete Time: 09:52 kb 03/31 08:25 Order name: CBC with Diff; Complete Time: 09:39 kb 03/31 08:25 Order name: LFT's; Complete Time: 09:52 kb 03/31 08:25 Order name: Magnesium; Complete Time: 09:52 kb 03/31 08:25 Order name: NT PRO-BNP; Complete Time: 09:52 kb 03/31 08:25 Order name: PT-INR; Complete Time: 09:47 kb 03/31 08:25 Order name: Troponin (emerg Dept Use Only); Complete Time: 09:52 kb 03/31 08:25 Order name: XRAY Chest (1 view); Complete Time: 09:11 kb 03/31 08:25 Order name: EKG; Complete Time: 08:27 kb 03/31 08:25 Order name: Cardiac monitoring; Complete Time: 08:57 kb 03/31 08:25 Order name: EKG - Nurse/Tech; Complete Time: 08:57 kb 03/31 08:25 Order name: CT Head Brain wo Cont; Complete Time: 09:13 kb 03/31 10:56 Order name: Urine Dipstick--Ancillary (enter results); Complete Time: 11:06 bd 03/31 08:25 Order name: IV Saline Lock; Complete Time: 09:26 kb 03/31 08:25 Order name: Labs collected and sent; Complete Time: 09:26 kb 03/31 08:25 Order name: O2 Per Protocol; Complete Time: 08:27 kb 03/31 08:25 Order name: O2 Sat Monitoring; Complete Time: 08:27 kb 03/31 08:25 Order name: Urine Dipstick-Ancillary (obtain specimen); Complete Time: 11:07 kb 03/31 08:25 Order name: Orthostatics; Complete Time: 08:57 kb EC:52 Rate is 61 beats/min. Rhythm is regular, Paced. QRS [place] is Normal. DE interval is kb normal at 196 msec. QRS interval is normal at 94 msec. QT interval is prolonged at 460 msec. Administered Medications: 10:14 Drug: NS 0.9% 1000 ml Route: IV; Rate: 1000 ml; Site: right antecubital; ph 11:42 Follow up: Response: No adverse reaction; IV Status: Completed infusion; IV Intake: ph 1000ml Disposition: 14:59 Co-signature as Attending Physician, García Gray MD I agree with the assessment and kdr plan of care. Disposition: 03/31/20 11:01 Discharged to Home. Impression: Weakness, Malaise and fatigue. - Condition is Stable. - Discharge Instructions: Fatigue, Weakness, [id number]. - Medication Reconciliation Form, Thank You Letter, Antibiotic Education, Prescription Opioid Use, Work release form form. - Follow up: Emergency Department; When: As needed; Reason: Worsening of condition. Follow up: Private Physician; When: 2 - 3 days; Reason: Recheck today's complaints, Continuance of care, Re-evaluation by your physician. NIH Stroke Scale - NIH Stroke Score Date: 03/31/2020 Time: 10:55 Total Score = 0 1a. Level of Consciousness (LOC) - 0(Alert) 1b. Level of Consciousness (LOC) (Year \\T\\ Age) - 0(Both) 1c. LOC Commands (Open \\T\\ Closes Eyes/Mixing Tank Operator) - 0(Both) 2. Best Gaze (Lateral Gaze Paresis) - 0(Normal) 3. Visual Field Loss - 0(No visual loss) 4. Facial Palsy - 0(Normal) 5a. Left Arm: Motor (10-second hold) - 0(No drift) 5b. Right Arm: Motor (10-second hold) - 0(No drift) 6a. Left Leg: Motor (5-second hold - always test supine) - 0(No drift) 6b. Right Leg: Motor (5-second hold - always test supine) - 0(No drift) 7. Limb Ataxia (finger/nose \\T\\ heel/slaughter - test with eyes open) - 0(Absent) 8. Sensory Loss (pinprick arms/legs/face) - 0(Normal) 9. Best Language: Aphasia (description/naming/reading) - 0(No aphasia) 10. Dysarthria (speech clarity - read or repeat words) - 0(Normal) 11. Extinction and Inattention (visual/tactile/auditory/spatial/personal) - 0(No abnormality) Initials: kb Signatures: Dispatcher [employer] EDMS Lizzette Parry, HAND CLOTH FOLDER-C HAND CLOTH FOLDER-Ckb García Gray MD MD [facility] Nhung Ken, RN RN ph Elisa Nogueira, MARIA R RN Corrections: (The following items were deleted from the chart) 11:02 11:01 03/31/2020 11:01 Discharged to Home. Impression: Weakness. Condition is kb Stable. Forms are Medication Reconciliation Form, Thank You Letter, Antibiotic Education, Prescription Opioid Use. Follow up: Emergency Department; When: As needed; Reason: Worsening of condition. Follow up: Private Physician; When: 2 - 3 days; Reason: Recheck today's complaints, Continuance of care, Re-evaluation by your physician. kb 11:42 11:02 03/31/2020 11:01 Discharged to Home. Impression: Weakness; Malaise and ph fatigue. Condition is Stable. Forms are Medication Reconciliation Form, Thank You Letter, Antibiotic Education, Prescription Opioid Use. Follow up: Emergency Department; When: As needed; Reason: Worsening of condition. Follow up: Private Physician; When: 2 - 3 days; Reason: Recheck today's complaints, Continuance of care, Re-evaluation by your physician. kb
[2020-03-31 11:04] LABS: Urine Blood NEGATIVE (NEG); Urine Glucose NEGATIVE (NEG); Urine Protein NEGATIVE (NEG)
[2020-03-31 12:06] VITALS: O2SAT 99
[2020-03-31 12:08] VITALS: BP 128/89; TEMP 97.8
--- NOTE | 2020-04-01 05:55 | EKG ---
Test Date: 2020-03-31 Test Time: 08:37:09 Supervisor Scouring Pads: RADHA MEASUREMENT RESULTS: Intervals: Rate: 61 [place]: 196 QRSD: 94 QT: 460 QTc: 463 [place]: P: 23 [place]: 196 QRS: 24 T: 31 INTERPRETIVE STATEMENTS: Electronic atrial pacemaker Nonspecific T wave abnormality Prolonged QT Abnormal ECG Compared to ECG 03/22/2020 16:57:29 Left ventricular hypertrophy no longer present T-wave abnormality still present Electronically Signed On 04-01-20 05:53:56 CDT by Hill Self
== END 2020-03-31 11:42 | disposition home or self-care (01) ==
LOC: ER 07:59
DX: R53.1 Weakness (principal); R53.81 Other malaise; R53.83 Other fatigue; Z88.6 Allergy status to analgesic agent; F41.9 Anxiety disorder, unspecified; K21.9 Gastro-esophageal reflux disease without esophagitis; E78.00 Pure hypercholesterolemia, unspecified; I10 Essential (primary) hypertension; Z95.0 Presence of cardiac pacemaker; Z86.73 Personal history of transient ischemic attack (TIA), and cerebral infarction without residual deficits; R29.700 NIHSS score 0
CPT/HCPCS: 93005; 85025; 80048; 36415; 83735; 85610; 80076; 81003; 84484; 83880; 70450; 71045; 96360; 99284; J7030

== ENCOUNTER 2020-05-11 19:31 | Emergency (ER) | payer OTHER ==
--- OUTSIDE RECORDS SUMMARY | 2020-05-11 19:33 | XMS REPORT | Clinical Summary ---
:1975 Author Organization [facility] Address [address] [place] [id number] Care Team Providers Name Role Phone Asked, [...] INFLUENZA VACCINE 05/13/2020 Implants Implanted Type Area Boat Builder And Repairer Device Shelf Model / Identifier Expiration Serial / Date Lot Joshuaquinton Guerra - [id number] - [id number] Cardiac N/A: LAZARA LEI 01/25/2020 [id number] / Implanted: Qty: 1 on 10/28/2018 by Yogesh Contreras Jr., M D at [facility] Pacemaker N/A [employer] [id number] / Generators [id number] S Lead [id number] Active Sc Sprint 55 Cm - [id number] Cardiac Pac ing N/A: [employer] CRM 07/10/2020 [id number] / Implanted: 10/28/2018 at [facility] (Quantity not on file) Manju ds or N/A [employer] [id number] / Electrodes or [id number] Accessories Lead, Bipolar Active Fixation Atrial Zohaib roid Eluting 45 Cm Capsure Fix Novus System - [id number] Cardiac Pacing N/A: [employer] FORMERLY [facility] [id number] / Implanted: 10/28/2018 at [facility] (Quantity not on file) Manju ds or N/A [employer] [id number] / Electrodes or [id number] Accessories Results Not on fileafter 05/11/2019 Advance Directives For more information, please contact: [phone] Type Date Recorded Patient Immunohematologist Explanati on Advance Directives, Living Will and Medical Power of Farm Crew Member
--- OUTSIDE RECORDS SUMMARY | 2020-05-11 19:34 | XMS REPORT | Clinical Summary ---
:1975 Author Organization [facility] Address [address] [place] [address] Care Team Providers Name Role Phone Alison Parker DO Primary Care Provider Allergies Active Allergy Reactions Severity Noted Date Comments Morphine Hives, Shortness Of Breath, Other (See High bradycardia Comments) Ketorolac Hives, Shortness Of Breath, Other (See High bradycardia Comments) Medications Medication Sig Dispensed Refills Start End Date Status Date evolocumab (REPATHA Inject 140 mg 0 Active SYRINGE) 140 mg/mL subcutaneously Syrg every 14 (fourteen) days . nebivolol Take 5 mg by mouth 0 A ctive (BYSTOLIC) 5 MG daily. tablet ALPRAZolam (XANAX Take 0.5 mg by 0 Active XR) 0.5 MG 24 hr mouth every tablet morning. topiramate Take 50 mg by 0 Activ e (TOPAMAX) 50 MG mouth nightly . tablet ergocalciferol Take 50,000 Units 0 Active (VITAMIN D2) 1,250 by mouth once a mcg (50,000 unit) week. capsule pantoprazole Take 1 tablet (40 60 tablet 4 Active (PROTONIX) 40 MG mg total) by mouth 0 tablet daily. metoprolol Take 25 mg by 0 07/21/20 Disco ntinued (LOPRESSOR) 25 MG mouth 2 (two) 19 tabletIndications: times daily. high blood pressure amLODIPine Take 1 tablet (10 30 tablet 0 03/24/201 10/09/20 D iscontinued (NORVASC) 10 MG mg total) by mouth 9 19 tablet daily. topiramate (QUDEXY Take 25 mg by 0 0 Discontinued XR) 25 mg CSpX mouth daily. 20 acetaminophen Take 1 tablet (500 30 tablet 0 0 (TYLENOL) 500 MG mg total) by mouth 0 20 tablet every 6 (six) hours as needed for Pain for up to 10 days. acetaminophen-codei Take 1 tablet by 30 tablet 0 ne (TYLENOL-CODEINE mouth every 6 0 20 #3) 300-30 mg per (six) hours as tablet needed for Pain for up to 10 days. Max Daily Amount: 4 tablets Active Problems Problem Noted Date GERD (gastroesophageal reflux disease) 04/26/2020 Dysphagia 04/26/2020 Morbid obesity 07/23/2019 TIA (transient ischemic attack) 01/01/2019 Encounters Date Type Specialty Care Team Description 04/26/2020 Surgery Hemanth LAPAROSCOPY,R EMOVAL Dana GASTRIC BAND MD Darlene 04/26/2020 Anesthesia Event Fortunato Palma NP 04/26/2020 [facility] General Internal Hemanth, Morbid ob esity (HCC) - Encounter Medicine Dana 04/27/2020 MD Darlene 04/25/2020 Travel 04/18/2020 Hospital Pre-Admission Testing Hemanth, Morb id obesity ([facility]) Encounter Dana Colon MD 04/18/2020 Orders Only General Internal Medicine 04/18/2020 Travel 08/26/2019 [facility] Radiology [facility], Bariatric surge ry status; Encounter Darian Luciano MD Abdominal pain, LUQ; Gastroesophagea l reflux disease, esophagitis presence not specified; Pre-operative c learance 08/26/2019 Outside Orders Central Scheduling [facility], [facility] ic surgery status (Primary Dx); Darian Luciano MD Abdominal pain, LUQ; Gastroesophagea l reflux disease, esophagitis presence not specified; Pre-operative c learance 07/29/2019 Surgery Gastroenterology Maya Knowles MOTILITY MD Tian 07/29/2019 [facility] Gastroenterology Maya Knowles Encounter MD Tian 07/23/2019 Anesthesia Event Concha Charles CRNA 07/23/2019 Surgery Gastroenterology Ang, UPPER ENDOS COPY,BIOPSY Darian Luciano MD 07/23/2019 [facility] Gastroenterology Ang, Encounter Darian Luciano MD 07/21/2019 Hospital Pre-Admission Testing Encounter after 05/11/2019 Social History Tobacco Use Types Packs/Day Years [...] Vital Sign Reading Time Taken Blood Pressure 98/50 04/27/2020 10:59 AM CDT Pulse 58 04/27/2020 10:59 AM CDT Temperature 36.8 C (98.3 F) 04/27/2020 10:59 AM CDT Respiratory Rate 18 04/27/2020 10:59 AM CDT Oxygen Saturation 98% 04/27/2020 10:59 AM CDT Inhaled Oxygen Concentration - - Weight 95.9 kg (211 lb 8 oz) 04/26/2020 6:00 A M CDT Height 157.5 cm (5' 2.01") 04/26/2020 6:00 AM CDT Body Mass Index 38.67 04/26/2020 6:00 AM CDT Plan of Treatment Not on file Procedures Procedure Name Priority Date/Time Associated Comments Diagnosis ARRYTHMIA IMPLANT 05/09/2020 2:21 Result s for this REPORT - SCAN PM CDT procedure are in the results section. ARRYTHMIA IMPLANT 04/28/2020 10:40 Result s for this REPORT - SCAN AM CDT procedure are in the results section. RHYTHM STRIP - SCAN 04/28/2020 10:40 AM CDT POCT-GLUCOSE METER Routine 04/27/2020 11:03 Resul ts for this AM CDT procedure are i n the results section. POCT-GLUCOSE METER Routine 04/27/2020 5:33 Resul ts for this AM CDT procedure are i n the results section. CBC W/PLT COUNT & Routine 04/27/2020 4:47 Result s for this AUTO DIFFERENTIAL AM CDT procedure are in the results section. CBC W/PLT COUNT & Routine 04/27/2020 4:47 Result s for this AUTO DIFFERENTIAL AM CDT procedure are in the results section. BASIC METABOLIC PANEL Routine 04/27/2020 4:47 Re sults for this (7) AM CDT procedure are i n the results section. POCT-GLUCOSE METER Routine 04/26/2020 11:56 Resul ts for this PM CDT procedure are i n the results section. ECG 12-LEAD Routine 04/26/2020 8:20 PM CDT Procedure Note - Interface, External Ris In - 04/26/2020 8:51 PM CDT Ventricular Rate 61 BPM Atrial Rate 61 BPM P-R Interval 174 ms QRS Duration 90 ms Q-T Interval 522 ms QTC Calculation(Bazett) 525 ms P [place] 36 degrees R [place] 7 degrees T [place] 5 degrees Normal sinus rhythm Prolonged QT Abnormal ECG When compared with ECG of 12:20, Sinus rhythm has replaced El ectronic atrial pacemaker ECG 12-LEAD Routine 04/26/2020 8:20 PM Results for this CDT procedure are i n the results section. POCT-GLUCOSE METER Routine 04/26/2020 5:33 PM Re sults for this CDT procedure are i n the results section. TISSUE EXAM AP Routine 04/26/2020 10:59 AM Results for this CDT procedure are i n the results section. UPPER ENDOSCOPY 04/26/2020 8:00 AM Morbid obesi ty (HCC) CDT Other hyperlipid emia Obstructive sleep apnea Heart disease, unspecified Case Notes MOVED TIME TO 8 AM PER SHAPE L Special Needs (EGD EQUIPMENT NEEDED,DAVINC I XI)Checked by AN 04/17/20 ROBOTIC 04/26/2020 8:00 Morbid obesity (HCC) LAPAROSCOPY,HERNIORRHAPHY HIATAL AM CDT Other hyperlipidemia Obstructive slee p apnea Heart disease, unspecified Case Notes MOVED TIME TO 8 AM PER SHAPE L Special Needs (EGD EQUIPMENT NEEDED,DAVINC I XI)Checked by AN 04/17/20 ROBOTIC 04/26/2020 Morbid obesity ( HCC) LAPAROSCOPY,ESOPHAGOJEJUNOSTOMY 8:00 AM CDT Other hyperlipidemia Obstructive slee p apnea Heart disease, unspecified Case Notes MOVED TIME TO 8 AM PER SHAPE L Special Needs (EGD EQUIPMENT NEEDED,DAVINC I XI)Checked by AN 04/17/20 LAPAROSCOPY,REMOVAL GASTRIC 04/26/2020 8:00 Mor bid obesity (HCC) BAND AM CDT Other hyperlipid emia Obstructive slee p apnea Heart disease, unspecified Case Notes MOVED TIME TO 8 AM PER SHAPE L Special Needs (EGD EQUIPMENT NEEDED,MISTY JONAS)Checked by AN 04/17/20 TRANSFUSION SERVICE REPORT - SCAN 04/19/2020 6:04 PM CDT ECG 12-LEAD Routine 04/18/2020 12:20 PM CDT Procedure Note - Interface, External Ris In - 04/18/2020 4:26 PM CDT Ventricular Rate 61 BPM Atrial Rate 61 BPM P-R Interval 210 ms QRS Duration 90 ms Q-T Interval 482 ms QTC Calculation(Bazett) 485 ms P [place] -8 degrees R [place] 18 degrees T [place] 9 degrees Atrial-paced rhythm with pro longed AV conduction Nonspecific T wave abnormali ty Prolonged QT Abnormal ECG When compared with ECG of 16:35, Electronic atrial pacemaker has replaced Sinus rhythm Minimal criteria for Inferio r infarct are no longer Present Nonspecific T wave abnormali ty now evident in Anterolateral leads ECG 12-LEAD Routine 04/18/2020 12:20 PM Results for this CDT procedure are i n the results section. TYPE AND SCREEN, Routine 04/18/2020 12:18 PM Resu lts for this AUTOMATED CDT procedure are i n the results section. HEMOGLOBIN Routine 04/18/2020 12:18 PM Results for this CDT procedure are i n the results section. ELECTROLYTE PANEL Routine 04/18/2020 12:17 PM Res ults for this CDT procedure are i n the results section. BUN AND CREATININE Routine 04/18/2020 12:17 PM Re sults for this W/RATIO CDT procedure are i n the results section. XR CHEST 2 VIEWS Routine 08/26/2019 2:40 PM Bariatric surgery Results for this INTERNAL SPECIALIST status procedure are in Abdominal pain, LUQ the results Gastroesophageal section. reflux disease, esophagitis presence not specified Pre-operative clearance MOTILITY 07/29/2019 3:00 PM Esophageal CDT dyskinesia Pre-op exam Dysphagia, unspecified type Gastroesophageal reflux [...] reflux disease, esophagitis presence not specified after 05/11/2019 Results ARRYTHMIA IMPLANT REPORT - SCAN (05/09/2020 2:21 PM CDT)Only the most recent of 2 resultswithin the time period is included. Narrative Performed At This result has an attachment that is no t available. RHYTHM STRIP - SCAN (04/28/2020 10:40 AM CDT) Narrative Performed At This result has an attachment that is no t available. POC-Glucose meter (04/27/2020 11:03 AM CDT)Only the most recent of4 results within the time period is included. POC-Glucose Meter 86Comment: : TESTED AT 70 - 110 mg/dL [address], [address]: Talent [employer] Manager/Title Coordinator ID = [id number] for ADIELPAMON Specimen Blood Performing Organization Address City/State/Zipcode Phone Number [address] [phone] CENTER CBC with platelet count + automated diff (04/27/2020 4:47 AM CDT) WBC 11.6 (H) 3.5 - 10.5 K/L [facility] RBC 4.16 3.93 - 5.22 M/L [facility] Hemoglobin 11.6 11.2 - 15.7 GM/DL [facility] Hematocrit 37.2 34.1 - 44.9 % [facility] MCV 89.4 79.4 - 94.8 fL [facility] MCH 27.9 25.6 - 32.2 pg [facility] MCHC 31.2 (L) 32.2 - 35.5 GM/DL [facility] RDW 13.9 11.7 - 14.4 % [facility] Platelets 206 150 - 450 K/CU MM [facility] MPV 10.8 9.4 - 12.3 fL [facility] nRBC 0 0 - 0 /100 WBC [facility] % Neutros 81 % [facility] % Lymphs 10 % [facility] % Monos 8 % [facility] % Eos 0 % [facility] % Baso 0 % [facility] # Neutros 9.33 (H) 1.56 - 6.13 K/L [facility] # Lymphs 1.19 1.18 - 3.74 K/L [facility] # Monos 0.98 (H) 0.24 - 0.36 K/L [facility] # Eos 0.00 (L) 0.04 - 0.36 K/L [facility] # Baso 0.04 0.01 - 0.08 K/L [facility] Immature Granulocytes-Relative 1 0 - 1 % C HI [facility] Specimen Blood Performing Organization Address City/State/Zipcode Phone Number [facility] [address] [place] [address] CENTER Basic metabolic panel (04/27/2020 4:47 AM CDT) Sodium 143 136 - 145 meq/L [facility] Potassium 4.1 3.5 - 5.1 meq/L [facility] Chloride 115 (H) 98 - 107 meq/L [facility] CO2 25 22 - 29 meq/L [facility] BUN 9 7 - 21 mg/dL [facility] Creatinine 0.76 0.57 - 1.25 mg/dL [facility] Glucose 109 (H) 70 - 105 mg/dL [facility] HE [facility] Calcium 8.2 (L) 8.4 - 10.2 mg/dL [facility] EGFR 83Comment: ESTIMATED GFR IS mL/min/1.[address] [facility] NOT ACCURATE CREATININE [facility] CLEARANCE IN PREDICTING GLOMERULAR FILTRATION RATE. ESTIMATED GFR IS NOT APPLICABLE FOR DIALYSIS PATIENTS. Specimen Blood Narrative Performed At [employer] Manager ID - PIAYA L [facility] Performing Organization Address City/State/Zipcode Phone Number [facility] MEDICAL [address] [place] [address] CENTER ECG 12 lead (04/26/2020 8:20 PM CDT)Only the most recent of2 resultswithin the time period is included. Specimen Narrative Performed At Ventricular Rate 61 BPM GE MUSE Atrial Rate 61 BPM P-R Interval 174 ms QRS Duration 90 ms Q-T Interval 522 ms QTC Calculation(Bazett) 525 ms P [place] Draft 36 degrees R [place] Draft 7 degrees T [place] 5 degrees Normal sinus rhythm Prolonged QT Abnormal ECG When compared with ECG of 18-APR-2020 12 :20, Sinus rhythm has replaced Electronic atr ial pacemaker Confirmed by MD Yuan Roberto ([id number]) on 04/27 7:26:23 AM Procedure Note Interface, External Ris In - 04/27/2020 7:26 AM CDT Ventricular Rate 61 BPM Atrial Rate 61 BPM P-R Interval 174 ms QRS Duration 90 ms Q-T Interval 522 ms QTC Calculation(Bazett) 525 ms P [place] Draft 36 degrees R [place] Draft 7 degrees T [place] 5 degrees Normal sinus rhythm Prolonged QT Abnormal ECG When compared with ECG of 18-APR-2020 12 :20, Sinus rhythm has replaced Electronic atr ial pacemaker Confirmed by MD Yuan Roberto ([id number]) on 04/27/2020 7:26:23 AM Performing Organization Address City/[facility] Phone Number GE MUSE Tissue Exam (04/26/2020 10:59 AM CDT)Only the most recent of2 resultswithin the time period is included. Case Report Surgical Pathology Report Case: [id number] [facility] Authorizing Provider:vEelia Bhardwajected: 04/26/2020 10:59 AM [facility] MD Darlene Ordering Location: S [facility] PERIOPERATIVE Received:04/26/2020 02:14 PM SERVICES Pathologist: Lea Santillan MD Specimen:Explant, La p Gastric Band for I and D DIAGNOSIS A. GASTRIC, GASTRIC BAND, REMOVAL: [facility] - GASTRIC BAND IDENTIFIED (GROSS ONLY) [facility] Signing Pathologist Direct Phone Line: [phone] CPT Code(s) 59968 [facility] HE ALTH [facility] CLINICAL HISTORY Morbid obesity [facility] EALTH Other hyperlipidemia [facility] Obstructive sleep apnea Heart disease, unspecified SPECIMEN SOURCE [facility] GROSS DESCRIPTION A. Received fresh labeled wi th the patients name, medical record number and "explant" is an Allergan brand gastric band measuring 5.5 x 5.5 x 2 cm with a 13 cm in length by 0.3 cm in diameter white tu [facility] be. Also received is a circ ular peters Allergan brand Port-A-Cath measuring 3 cm in diameter and 0.9 cm in height. There is a 16.5 cm in length by 0.3 cm in diameter attached catheter. The Port-A-Cath i [facility] s inscribed with "lot number : [id number] part number: [id number] full range: 0-10 cc." A gross photograph is taken. No sections are submitted-gross only. KEVIN Sigala, PA ([facility]) MICROSCOPIC DESCRIPTION N/A [facility] Specimen Tissue - Explant Performing Organization Address City/State/Zipcode Phone Number [facility] [address] [place] [address] CENTER TRANSFUSION SERVICE REPORT - SCAN (04/19/2020 6:04 PM CDT) Narrative Performed At This result has an attachment that is no t available. Type and screen, automated (04/18/2020 12:18 PM CDT) ABO/RH AUTOMATED (BEAKER) A POSITIVE [facility] Ab Scrn NEGATIVE [facility] Specimen Blood Performing Organization Address City/[facility]/Zipcode Phone Number [facility] [address] [place] [address] Hemoglobin (04/18/2020 12:18 PM CDT) Hemoglobin 13.9 11.2 - 15.7 GM/DL [facility] Specimen Blood Narrative Performed At [employer] Manager ID - [id number] [facility] Performing Organization Address City/[facility]/Zipcode Phone Number [facility] [address] [place] [address] CENTER BUN and Creatinine (04/18/2020 12:17 PM CDT) BUN 22 (H) 7 - 21 mg/dL [facility] ER Creatinine 0.85 0.57 - 1.25 mg/dL [facility] ER BUN/Creatinine Ratio 25.8824Comment: For a [facility] normal individual on a [facility] normal diet, the reference interval for the mass ratio ranges between 12:1 and 20:1 (BUN in mg/dL/creatinine in mg/dL) EGFR 73Comment: ESTIMATED GFR mL/min/1.73 sq m [facility] IS NOT ACCURATE [facility] CREATININE CLEARANCE IN PREDICTING GLOMERULAR FILTRATION RATE. ESTIMATED GFR IS NOT APPLICABLE FOR DIALYSIS PATIENTS. Specimen Blood Narrative Performed At [employer] Manager ID - PIAYA L [facility] Performing Organization Address City/[facility]/Zipcode Phone Number [facility] [address] [place] [address] CENTER Electrolytes (04/18/2020 12:17 PM CDT) Sodium 137 136 - 145 meq/L [facility] Potassium 4.2 3.5 - 5.1 meq/L [facility] Chloride 103 98 - 107 meq/L [facility] CO2 26 22 - 29 meq/L [facility] Specimen Blood Narrative Performed At [employer] Manager ID - PIAYA L [facility] Performing Organization Address City/State/Zipcode Phone Number [facility] [address] [place] [address] CENTER XR chest 2 views (08/26/2019 2:40 PM INTERNAL SPECIALIST) Specimen Narrative Performed At FINAL REPORT GE RIS History provided: Bariatric surgery, abd ominal pain CHEST PA AND LATERAL COMPARISON STUDY: 01/01/2019 Heart size normal. Dual lead left subcla vian ICD. Lungs clear and vascularity normal. Signed: Jc Tobar MD Report Verified Date/Time:08/26/2019 15:35:48 Reading Location: [facility] Diagnostic Imagi ng Reading Room - [facility] F1 1.310.12 Procedure Note Interface, External Ris In - 08/26/2019 3:38 PM INTERNAL SPECIALIST FINAL REPORT History provided: Bariatric surgery, abd ominal pain CHEST PA AND LATERAL COMPARISON STUDY: 01/01/2019 Heart size normal. Dual lead left subcla vian ICD. Lungs clear and vascularity normal. Signed: Jc Tobar MD Report Verified Date/Time: 08/26/2019 1 5:35:48 Reading Location: [facility] Diagnostic Imagi ng Reading Room - [facility] F1 1.310.12 Performing Organization Address City/State/Zipcode Phone Number GE RIS REPORT OF PROCEDURE - ENDOSCOPY URL (07/23/2019 7:31 AM CDT) Narrative Performed At This result has an attachment that is no t available. after 05/11/2019 Insurance Payer Benefit Plan / Group Subscriber ID Type Phone A ddress [employer] - MGD CARE [employer] HMO/POS/OPEN ACCESS xxxxxxxxxxx HMO/POS Advance Directives For more information, please contact:[address] [phone] Code Status Date Activated Date Inactivated Comments Full Code 04/26/2020 5:41 AM 04/27/2020 4:02 PM This code status was determined by: Patient Full Code 07/23/2019 5:59 AM 07/23/2019 10:56 AM This code status was determined by: Patient
--- OUTSIDE RECORDS SUMMARY | 2020-05-11 19:35 | XMS REPORT | Summary of Care ---
:1975 Author Organization [facility] [place] [address] Care Team Providers Name Role Phone Alison Parker DO Primary Care Provider Reason for Visit Reason Comments Follow Up Consult, Test & Treat (Routine) Status Reason Specialty Diagnoses / Referred By Referred To Procedures Contact Contact Authorization Not General Surgery Diagnoses Morbid (severe) obesity due to excess calories per MD pt to do another pre-op appt(orignal was 02/03/20) Vy Parker Holder-Haynes, Needed / Bariatrics Procedures IN OFFICE OUTPATIENT VISIT 25 MINUTES ESTABLISHED BARIATRIC DO Dana Munguia MD [address] [place] [address] [address] Phone: [phone] Phone: Encounter Details Date Type Department Care Team Description 04/18/2020 Office Visit [facility] Dana Saxena , Follow Up Medicine Bariatric MD Surgery [address] [facility] [address] [facility] 8[address]; [address] [place] [address] [place] [address] [phone] Allergies Active Allergy Reactions Severity Noted Date Comments Ketorolac & Bupivacaine & Anaphylaxis High 10/28/2018 Ra sh Lido Morphine 10/28/2018 Sob SOB, vomit, low BP Toradol High 04/18/2020 documented as of this encounter (statuses as of 04/23/2020) Medications Medication Sig Dispensed Refills Start Date End Date Status BYSTOLIC 5 MG Take 5 mg by 3 03/06/2019 Ac tive TABS mouth. Evolocumab with Inject into 0 A ctive Infusor (REPATHA the skin. PUSHTRONEX SYSTEM) 420 MG/3.5ML SOCT alprazolam TK 1 T PO 0 04/06/2020 Active (XANAX XR) 0.5 QAM. MG XR tablet topiramate TK 1 T PO 0 01/25/2020 Active (TOPAMAX) 50 MG QHS. tablet alprazolam Take 0.5 mg 0 04/18/2020 Discon tinued (XANAX) 0.5 MG by mouth (*Tem porary tablet nightly as prescript ion) needed for Sleep. Topiramate ER Take 50 mg by 0 04/18/2020 D iscontinued (QUDEXY XR) 25 mouth daily. (* Temporary MG CS24 prescripti on) documented as of this encounter (statuses as of 04/23/2020) Active Problems Not on filedocumented as of this encounter (statuses as of 04/23/2020) Social History Tobacco Use Types Packs/Day Years Used Date Never Smoker Smokeless Tobacco: Never Used Alcohol Use Drinks/Week oz/Week Comments Never Alcohol Habits Answer Date Recorded How often do you have a drink containing alcohol? Never 05/12/2019 How many drinks containing alcohol do you [...] Travel End No recent travel history available. COVID-19 Exposure Response Date Recorded In the last month, have you been in contact with No / Unsure 04/18/2020 9:19 AM CDT someone who was confirmed or suspected to have Coronavirus / COVID-19? documented as of this encounter Last Filed Vital Signs Vital Sign Reading Time Taken Comments Blood Pressure 142/103 04/18/2020 9:29 AM CDT Pulse 87 04/18/2020 9:29 AM CDT Temperature 36.7 C (98 F) 04/18/2020 9:29 AM CDT Respiratory Rate - - Oxygen Saturation - - Inhaled Oxygen Concentration - - Weight 96.8 kg (213 lb 6.4 oz) 04/18/2020 9:29 AM CDT Height 157.5 cm (5' 2") 04/18/2020 9:29 AM CDT Body Mass Index 39.03 04/18/2020 9:29 AM CDT documented in this encounter Patient Instructions Patient InstructionsAiyana Chiu MA - 04/18/2020 9:59 AM CDTYour Body mass index is 39.03 kg/m. Body mass index (BMI) can help you see if your weight is raising your risk for health problems. It uses a formula to compare how much you weigh with how tall you are. A BMI between 18.5 and 24.9 is considered healthy. A BMI between 25 and 29.9 is considered overweight. A BMI of 30 or higher is considered obese. If your BMI is in the normal range, it means that you have a lower risk for weight-related health problems. If your BMI is in the overweight or obese range, you may be at increased risk for weight-related health problems, such as high blood pressure, heart disease, stroke, arthritis or joint pain, anddiabetes. BMI is just one measure of your risk for weight-related health problems. You may be at higher risk for health problems if you are not active, you eat an unhealthy diet, or you drink too much alcohol oruse tobacco products. Follow-up care is a chandler part of your treatment and safety. Be sure to make and go to all appointments, and call your doctor if you are having problems. It's also a good idea to know your test results and keep a list of the medicines you take. How can you care for yourself at home? Practice healthy eating habits. This includes eating plenty of fruits, vegetables, whole grains, lean protein, and low-fat dairy. Get at least 30 minutes of exercise 5 days a week or more. Brisk walking is a good choice. You also may want to do other activities, such as running, swimming, cycling, or playing tennis or team sports. Do not smoke. Smoking can increase your risk for health problems. If you need help quitting, talkto your doctor about stop-smoking programs and medicines. These can increase your chances of quitting for good. Limit alcohol Where can you learn more? Go to [email or web address] Go to the Search tab with the magnifying glass on the right side of [employer] home page. Enter S176 in the search box to learn more about "Body Mass Index: Care Instructions." documented in this encounter Progress Notes Dana Saxena MD - 04/18/2020 9:40 AM CDT Dana Saxena MD [facility] Department of Surgery [address], [address] [place] [address] BRIEF HISTORY AND PHYSICAL Date of Encounter: 04/18/2020 HISTORY OF PRESENT ILLNESS: Patient known to me with a history of dysphagia and GERD related to presence of a lap band. She has been approved to undergo band removal and revision to near- esophagojejunostomy. Here to discuss perioperative plan, answer questions. Deemed low cardiac risk. 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 PAST MEDICAL HISTORY: Encounter Diagnoses Name Primary? Morbid obesity (HCCode) Yes AICD (automatic cardioverter/defibrillator) present Gastroesophageal reflux disease, esophagitis presence not specified Prolonged QT syndrome Esophagitis Essential hypertension Anxiety PAST SURGICAL HISTORY: Past Surgical History: Procedure Laterality Date HX CARPAL TUNNEL RELEASE HX SECTION HX CHOLECYSTECTOMY HX GASTRIC RESTRICTION SURGERY HX HYSTERECTOMY HX PACEMAKER MEDICATIONS: Current Outpatient Medications: alprazolam (XANAX XR) 0.5 MG XR tablet, TK 1 T PO QAM., Disp: , Rfl: BYSTOLIC 5 MG TABS, Take 5 mg by mouth., Disp: , Rfl: 3 Evolocumab with Infusor (REPATHA PUSHTRONEX SYSTEM) 420 MG/3.5ML SOCT, Inject into the skin., Disp: , Rfl: topiramate (TOPAMAX) 50 MG tablet, TK 1 T PO QHS., Disp: , Rfl: ALLERGIES: Allergies Allergen Reactions Ketorolac & Bupivacaine & Lido Anaphylaxis Rash Toradol Morphine Sob SOB, vomit, low BP VITALS: Vital Signs Height: 5' 2" (157.5 cm) Weight - Scale: 213 lb 6.4 oz (96.8 kg) Temp: 98 F (36.7 C) Temp Source: Oral Pulse: 87 BP: (!) 142/103 Patient Position: Sitting BP Location: right arm Height and Weight BSA (Calculated - sq m): 2.06 sq meters BMI (Calculated): 39.1 Predicted Body Weight: 110.45 PHYSICAL EXAM: General appearance - alert, well appearing, and in no distress Mental status - alert, oriented to person, place, and time Eyes - pupils equal and reactive, extraocular eye movements intact, sclera anicteric Mouth - mucous membranes moist, pharynx normal without lesions Neck - supple, no significant adenopathy Chest - clear to auscultation, no wheezes, rales or rhonchi, symmetric air entry Heart - normal rate, regular rhythm, normal S1, S2, no murmurs, rubs, clicks or gallops Abdomen - soft, nontender, nondistended, no masses or organomegaly Extremities - peripheral pulses normal, no pedal edema, no clubbing or cyanosis Skin - normal coloration and turgor, no rashes, no suspicious skin lesions noted ASSESSMENT: Encounter Diagnoses Name Primary? Morbid obesity (HCCode) Yes AICD (automatic cardioverter/defibrillator) present Gastroesophageal reflux disease, esophagitis presence not specified Prolonged QT syndrome Esophagitis Essential hypertension Anxiety PLAN: Plan for robotic assisted gastric band removal and revision to near- esophagojejunostomy with possible hiatal hernia repair. AICD in place documented in this encounter Plan of Treatment Date Type Specialty Care Team Description 04/24/2020 Clinical Support Pathology Resource, Covid-19 Testi Site 04/26/2020 Appointment Bariatrics Jamari Saxena MD [address] [facility] 8th [address] [place], [place] [address] [phone] 05/02/2020 Office Visit Bariatrics Kandis [facility] [address] [place], [place] [address] [phone] Health Maintenance Due Date Last Done Comments MAMMOGRAM ANNUAL 1976 TETANUS SHOT (ADULT) 1991 HIV SCREENING 1994 CERVICAL CANCER SCREENING 3 YEAR FOLLOW UP 1997 FLU VACCINE > 6 MONTHS 05/13/2020 BMI FOLLOW UP PLAN 04/18/2021 04/18/2020, 12/02/2019 documented as of this encounter Results Not on filedocumented in this encounter Visit Diagnoses Diagnosis Morbid obesity (HCCode) - Primary Morbid obesity AICD (automatic cardioverter/defibrillat or) present Automatic implantable cardiac defibrilla tor in situ Gastroesophageal reflux disease, esophag itis presence not specified Prolonged QT syndrome Long QT syndrome Esophagitis Esophagitis, unspecified Essential hypertension Unspecified essential hypertension Anxiety Anxiety state, unspecified documented in this encounter Insurance Payer Benefit Plan / Subscriber ID Effective Dates Phone Addre ss Type Group [facility] [employer] [facility] OPEN xxxxxxxxxxx 2018-Present [id number] PPO ACCESS - JACK CORRALES [id number] documented as of this encounter
--- OUTSIDE RECORDS SUMMARY | 2020-05-11 19:35 | XMS REPORT | Continuity of Care Document ---
:1975 Author Organization [facility] t Address [address] [place] [address] Care Team Providers Name Role Phone Asked, Pcp Primary Care Physician Unavailable Mustapha Pate Attending Clinician Sal Perla MD Attending Clinician [phone] Devon Palma NP Attending Clinician SAL PERLA Attending Clinician Unavailable Nilda Perla MD Attending Clinician Mustapha Fry MD Attending Clinician Tian Knowles MD Attending Clinician Mustapha FRY Attending Clinician Unavailable Apanra Andrews CRNA Attending Clinician Candida GARCIA Attending Clinician Unavailable Ang THOMPSON Attending Clinician CECIL ROSARIO Attending Clinician Unavailable SAL PERLA Admitting Clinician Unavailable Mustapha FRY Admitting Clinician Unavailable RIA Admitting Clinician Unavailable Payers Payer Name Policy Type Policy Number Effective Date Expiration Date S raúl CIGNA - MGD xxxxxxxxxxx [facility] - Medical HMO/POS/OPEN Center ACCESSxxxxxxxxx xxHMO/POS Problems Condition Condition Condition Status Onset Resolution Last Treating Co mments Source Name Details Category Date Date Treatment Clinician Date GERD GERD Disease Active [facility] ([facility] (gastroeso 7-15 Shyanne kes - phageal phageal 00:00: Medical reflux reflux 00 Center disease) disease) Dysphagia Dysphagia Disease Active [facility] Morbid Morbid Disease Active 2018-[address] [facility] obesity obesity 0-11 [facility] TIA TIA Disease Active [facility] (transient (transient 3-22 Shyanne kes - ischemic ischemic 00:00: Medica l attack) attack) 00 Center 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 1-16 Method i 00:00: st 00 Allergies, Adverse Reactions, Alerts Allergy Allergy Status Severity Reaction(s) Onset Inactive Treating Comm ents Source Name Type Date Date Clinician Morphine Drug Active Hives, bradycard [facility] Allergy Shortness Of 3-22 ia [facility] - Breath, 00:00: Medical Other (See 00 Center Comments) Ketorola Drug Active Hives, bradycard [facility] Allergy Shortness Of 3-22 ia [facility] - Breath, 00:00: Medical Other (See 00 Center Comments) Morphine Propensi Active SOB, [place] to 1-16 vomit, [facility] adverse 00:00: low BP st reaction 00 s to drug Ketorola Propensi Active Anaphylaxis [place] to 1-16 Method[facility] adverse 00:00: st reaction 00 s to drug Social History Social Habit Start Date Stop Date Quantity Comments Source History SDOH Alcohol [facility] - Std Drinks [facility] History SDOH Alcohol [facility] Binge [facility] Sex Assigned At [facility] History SDOH Alcohol 2019-07-21 2019-07-21 [address] [facility] - Frequency 00:00:00 00:00:00 Medical Center Smoking Status Start Date Stop Date Source Never smoker [facility] edical [place] Medications Ordered Filled Start Stop Current Ordering Indication Dosage Frequency Signature Comments Components Source Medication Medication Date Date Medication? Clinician (SIG) Name Name evolocumab Yes 140mg Q14D Inject 140 [facility] (REPATHA 7-16 mg [facility] - SYRINGE) 10:06: subcutaneo Med ical 140 mg/mL 44 usly every Cent er Syrg 14 (fourteen) days . ergocalcife 2020-0 Yes 56055H Q7D Take [facility] rol 7-16 50,000 [facility] - (VITAMIN 10:06: Units by Medic al D2) 1,250 44 mouth once Cent er mcg (50,000 a week. unit) capsule pantoprazol 2019-0 Yes 40mg QD Take [address] e -16 tablet (40 [facility] - (PROTONIX) 00:00: mg total) Me dical 40 MG 00 by mouth Center tablet daily. acetaminoph 2019-2019- No 500mg Take [address] en -27 04- tablet [facility] - (TYLENOL) 00:00: 23:59 (500 mg Medi rah 500 MG 00 :00 total) by Center tablet mouth every 6 (six) hours as needed for Pain for up to 10 days. acetaminoph 2019- 2020- No 1{tbl} Take [address] en-codeine 04-27 tablet by Virgen es - (TYLENOL-CO 00:00: 23:59 mouth Medi rah DEINE #3) 00 :00 every 6 Center 300-30 mg (six) per tablet hours as needed for Pain for up to 10 days. Max Daily Amount: 4 tablets topiramate 2019-0 Yes 50mg QD Take [address] (TOPAMAX) 7-14 by mouth [facility] - 50 MG 08:59: nightly . Medical tablet 47 Center topiramate 2019-0 2020- No 25mg QD Take [address] (QUDEXY XR) 04-18 07-07 by mouth Virgen es - 25 mg CSpX 11:16: 00:00 daily. Medi rah 59 :00 Center ALPRAZolam 2018-10 Yes .5mg QD Take 0.[address] (XANAX XR) 0-09 mg by [facility] - 0.5 MG 24 13:49: mouth Medical hr tablet 43 every Center morning. metoprolol 2018-10 2019- No high blood 25mg Q.5D Take [address] (LOPRESSOR) 0-09 10-09 pressure by mouth 2 [facility] - 25 MG 13:49: 00:00 (two) Medical tablet 42 :00 times Center daily. nebivolol 2018-10 Yes 5mg QD Take [address] [address] (BYSTOLIC) 0-09 by mouth [facility] - 5 MG tablet 13:48: daily. [place] [id number] Center amLODIPine 2019- No 10mg QD Take [...] Time Observation Value Comments Source Systolic blood 2020-04-27 10:59:00 98 mm[Hg] [facility] Diastolic blood 2020-04-27 10:59:00 50 mm[Hg] [facility] S [facility] Heart rate 2020-04-27 10:59:00 58 /min [facility] Body temperature 2020-04-27 10:59:00 36.83 Jessica [facility] Respiratory rate 2020-04-27 10:59:00 18 /min [facility] Oxygen saturation in 2020-04-27 10:59:00 98 /min [facility] Arterial blood by Medical Ce nter Pulse oximetry Body height 2020-04-26 06:00:00 157.5 cm [facility] Body weight Measured 2020-04-26 06:00:00 95.936 kg [facility] BMI 2020-04-26 06:00:00 38.67 kg/m2 [facility] Procedures Procedure Date / Time Performed Performing Clinician Deepti godoy ARRYTHMIA IMPLANT REPORT 2020-05-09 14:21:41 Provider, Default C [facility] ARRYTHMIA IMPLANT REPORT 2020-04-28 10:40:58 Provider, Default C [facility] RHYTHM STRIP - SCAN 2020-04-28 10:40:57 Provider, Default [facility] POCT-GLUCOSE METER 2020-04-27 11:03:00 Daan Perla [facility] POCT-GLUCOSE METER 2020-04-27 05:33:00 Dana Perla [facility] BASIC METABOLIC PANEL 2020-04-27 04:47:00 Katy Waite [address] CBC W/PLT COUNT & AUTO 2020-04-27 04:47:00 Katy Waite [facility] POCT-GLUCOSE METER 2020-04-26 23:56[facility]00 [facility]AD 2020-04-26 20:20:42 Unknown, Hl7 Doctor [facility] POCT-GLUCOSE METER 2020-04-26 17:33:00 Dana Perla [facility] TISSUE EXAM 2020-04-26 10:59:00 Dana Perla [facility] LAPAROSCOPY,REMOVAL 2020-04-26 08:00:00 Dana Perla I [facility] GASTRIC BAND [facility] ROBOTIC 2020-04-26 08:00:00 Dana Perla [facility] - LAPAROSCOPY,ESOPHAGOJEJU [facility] NOSTOMY ROBOTIC 2020-04-26 08:00:00 Dana Perla [facility] - LAPAROSCOPY,HERNIORRHAPH [facility] Y HIATAL UPPER ENDOSCOPY 2020-04-26 08:00:00 Dana Perla [facility] TRANSFUSION SERVICE 2020-04-19 18:04:56 Provider, Default [facility] - REPORT [facility] ECG 12-LEAD 2020-04-18 12:20:00 Unknown, Hl7 Doctor [facility] HEMOGLOBIN 2020-04-18 12:18:00 Fortunato Palma [facility] TYPE AND SCREEN, 2020-04-18 12:18:[address] [facility] AUTOMATED [facility] BUN AND CREATININE 2020-04-18 12:17:00 Fortunato Palma [facility] - W/RATIO [facility] ELECTROLYTE PANEL 2020-04-18 12:17:00 Fortunato Palma [facility] XR CHEST 2 VIEWS 2019-08-26 14:40:[facility] 2019-07-29 15:00:00 Maya Knowles [facility] REPORT OF PROCEDURE - 2019-07-23 07:31:[address] [facility] ENDOSCOPY [facility] TISSUE EXAM 2019-07-23 07:22:00 Darian Fry [facility] UPPER ENDOSCOPY,BIOPSY 2019-07-23 07:00:00 [facility] of Care Planned Activity Planned Date Details Comments Source Future Scheduled 2020-05-13 INFLUENZA VACCINE [place] [facility] 00:00:00 [code = INFLUENZA VACCINE] Future Scheduled 1997 Screening for [facility] 00:00:00 malignant neoplasm of cervix (procedure) [code = 331599881] Encounters Start End Encounter Admission Attending Care Care Encounter Source Date/Time Date/Time Type Type Clinicians Facility Department ID 2020-05-02 2020-05-02 Office EMILY Queen [id number] 13:56:12 14:26:12 Visit Pamelaolga A AMBULATOR 350.1.13.21 Y 0.2.7.2.686 [id number] 2020-04-18 2020-04-18 Office Allyn DIAZ [id number] 09:19:54 15:17:15 Visit Dana james AMBULATOR 350.1.13.21 G Y 0.2.7.2.686 [id number] 800 2019-12-02 2019-12-02 Office Allyn [facility] [id number] 10:01:30 12:40:44 Visit Dana james AMBULATOR 350.1.13.21 G Y 0.2.7.2.686 [id number] 2019-07-16 2019-07-16 Office Candida Kenia [id number] 13:41:03 15:14:00 Visit Madison AMBULATOR 350.1.13.21 Y 0.2.7.2.686 [id number] 2019-06-16 2019-06-16 Office Candida, [facility] [id number] 10:26:53 13:08:19 Visit [place] AMBULATOR 350.1.13.21 Y 0.2.7.2.686 [id number] 2019-05-12 2019-05-12 Office Ang [facility] [id number] 12:57:08 15:12:24 Visit Darian AMBULATOR 350.1.13.21 Y 0.2.7.2.686 [id number] Results Test Description Test Time Test Comments Results Result Comments Source POC-Glucose meter 2020-04-27 11:14:00 Test Item Value Reference Range Interpretation Comme nts POC-Glucose Meter (test code = 86 mg/dL 70-110 : TESTED AT [facility] [address] [facility] 1538) [facility], 7[address] 30: Industrial Safety Engineer/Techni ashish ID = [id number] for ADIELPALMIRA Lab Interpretation (test code = Normal 36827-4) [facility] [id number] 11:14:00 Test Item Value Reference Range Interpretation Comments POC-GLUCOSE METER 86 mg/dL 70-110 : TESTED A T [facility] [address] (BEAKER) (test code = THIERRY Hall [facility], 1538) [address]: Industrial Safety Engineer/Techni ashish ID = [id number] for SABAS CHAVEZ ECG 12 [id number] 07:26:27Interface, External Ris In 04/27/2020 7:26 AM CDTVentricular Rate 61 BPMAtrial Rate 61 BPMP-R Interval 174 msQRS Duration 90 msQ-T Interval 522 msQTC Calculation(Bazett) 525 msP [place] 36 degreesR [place] 7 degreesT [place] 5 degreesNormal sinus rhythmProlonged QTAbnormal ECGWhen compared with ECG of 18-APR-2020 12:20,Sinus rhythm has replaced Electronic atrial pacemakerConfirmed by MD Yuan Roberto ([id number]) on 04/27/2020 7:26:23 AM [facility] metabolic [id number] 05:47:00 Test Item Value Reference Range Interpretation Comments Sodium (test code = 143 meq/L 801-664 2311-2) Potassium (test code = 4.1 meq/L 3.5-5.1 2823-3) Chloride (test code = 115 meq/L 98-107 H 2075-0) CO2 (test code = 25 meq/L 22-29 8-9) BUN (test code = 9 mg/dL 7- 3094-0) Creatinine (test code 0.76 mg/dL 0.57-1.25 = 2160-0) Glucose (test code = 109 mg/dL 70-105 H 2345-7) Calcium (test code = 8.2 mg/dL 8.4-10.2 L 38480-6) EGFR (test code = 83 mL/min/1.73 [place] [address]-4) NOT ACCURATE CREATININE CLEARANCE IN PREDICTING GLOMERULAR FILTRATION RATE . ESTIMATED GFR I S NOT APPLICABLE FOR DIALYSIS PATIENTS. MANE (test code = MANE) Industrial Safety Engineer ID - PIAYA L Lab Interpretation Abnormal (test code = 88080-6) [facility] METABOLIC [id number] 05:47:00 Test Item Value Reference Range Interpretation Comments SODIUM (BEAKER) 143 meq/L 136-145 (test code = 381) POTASSIUM (BEAKER) 4.1 meq/L 3.5-5.1 (test code = 379) CHLORIDE (BEAKER) 115 meq/L 98-107 H (test code = 382) CO2 (BEAKER) (test 25 meq/L -29 code = 355) BLOOD UREA NITROGEN 9 mg/dL 7- (BEAKER) (test code = 354) CREATININE (BEAKER) 0.76 mg/dL 0.57-1.25 (test code = 358) GLUCOSE RANDOM 109 mg/dL 70-105 H (BEAKER) (test code = 652) CALCIUM (BEAKER) 8.2 mg/dL 8.4-10.2 L (test code = 697) EGFR (BEAKER) (test 83 mL/min/1.73 ESTIMA DESMOND GFR IS code = 1092) sq m NOT ACCURATE CREATININE CLEARANCE IN PREDICTING GLOMERULAR FILTRATION RATE . ESTIMATED GFR I S NOT APPLICABLE FOR DIALYSIS PATIEN TS. Industrial Safety Engineer ID - PIAYA LPOCT-GLUCOSE [id number] 05:44:00 Test Item Value Reference Range Interpretation Comments POC-GLUCOSE METER 97 mg/dL 70-110 : TESTED A T [facility] [address] (KAYLA) (test code = [place], 1538) [address]: Industrial Safety Engineer/Techni ashish ID = [id number] for SAND ERS, POLO CBC with platelet count + automated [id number] 05:31:00 Test Item Value Reference Range Interpretation Comments WBC (test code = 6690-2) 11.6 3.5- 10.5 K/L H RBC (test code = 789-8) 4.16 3.93- 5.22 M/L MCHC (test code = 786-4) 31.2 32.2- 35.5 GM/DL L Hematocrit (test code = 4544-3) 37.2 % 34.1-44.9 MCV (test code = 787-2) 89.4 fL 79.4-94.8 MCH (test code = 785-6) 27.9 pg 25.6-32.2 RDW (test code = 788-0) 13.9 % 11.7-14.4 Platelets (test code = 777-3) 206 150- 450 K/CU MM MPV (test code = 80197-0) 10.8 fL 9.4-12.3 nRBC (test code = 413) 0 0- 0 /100 WBC % Neutros (test code = 429) 81 % % Lymphs (test code = 430) 10 % % Monos (test code = 431) 8 % % Eos (test code = 432) 0 % % Baso (test code = 437) 0 % # Neutros (test code = 670) 9.33 1.56- 6.13 K/L H # Lymphs (test code = 414) 1.19 1.18- 3.74 K/L # Monos (test code = 415) 0.98 0.24- 0.36 K/L H # Eos (test code = 416) 0.00 0.04- 0.36 K/L L # Baso (test code = 417) 0.04 0.01- 0.08 K/L Immature Granulocytes-Relative 1 % 0-1 (test code = 2801) Lab Interpretation (test code = Abnormal 57571-7) [facility] W/PLT COUNT & AUTO [id number] 05:31:00 Test Item Value Reference Range Interpretation Comments WHITE BLOOD CELL COUNT (BEAKER) 11.6 K/ L 3.5-10.5 H (test code = 775) RED BLOOD CELL COUNT (BEAKER) 4.16 M/ L 3.93-5.22 (test code = 761) HEMOGLOBIN (BEAKER) (test code = 11.6 GM/DL 11.2-15.7 410) HEMATOCRIT (BEAKER) (test code = 37.2 % 34.1-44.9 411) MEAN CORPUSCULAR VOLUME (BEAKER) 89.4 fL 79.4-94.8 (test code = 753) MEAN CORPUSCULAR HEMOGLOBIN 27.9 pg 25.6-32.2 (BEAKER) (test code = 751) MEAN CORPUSCULAR HEMOGLOBIN CONC 31.2 GM/DL 32.2-35.5 L (BEAKER) (test code = 752) RED CELL DISTRIBUTION WIDTH 13.9 % 11.7-14.4 (BEAKER) (test code = 412) PLATELET COUNT (BEAKER) (test 206 K/CU MM 150-450 code = 756) MEAN PLATELET VOLUME (BEAKER) 10.8 fL 9.4-12.3 (test code = 754) NUCLEATED RED BLOOD CELLS 0 /100 WBC 0-0 (BEAKER) (test code = 413) NEUTROPHILS RELATIVE PERCENT 81 % (BEAKER) (test code = 429) LYMPHOCYTES RELATIVE PERCENT 10 % (BEAKER) (test code = 430) MONOCYTES RELATIVE PERCENT 8 % (BEAKER) (test code = 431) EOSINOPHILS RELATIVE PERCENT 0 % (BEAKER) (test code = 432) BASOPHILS RELATIVE PERCENT 0 % (BEAKER) (test code = 437) NEUTROPHILS ABSOLUTE COUNT 9.33 K/ L 1.56-6.13 H (BEAKER) (test code = 670) LYMPHOCYTES ABSOLUTE COUNT 1.19 K/ L 1.18-3.74 (BEAKER) (test code = 414) MONOCYTES ABSOLUTE COUNT (BEAKER) 0.98 K/ L 0.24-0.36 H (test code = 415) EOSINOPHILS ABSOLUTE COUNT 0.00 K/ L 0.04-0.36 L (BEAKER) (test code = 416) BASOPHILS ABSOLUTE COUNT (BEAKER) 0.04 K/ L 0.01-0.08 (test code = 417) IMMATURE GRANULOCYTES-RELATIVE 1 % 0-1 PERCENT (BEAKER) (test code = 2801) POCT-GLUCOSE [id number] 00:07:00 Test Item Value Reference Range Interpretation Comments POC-GLUCOSE METER 150 mg/dL 70-110 H : TESTED A T [facility] 6720 (BEAKER) (test code = [facility], 1538) [address]: Industrial Safety Engineer/Techni ashish ID = [id number] for SA POLO RAMIREZ POCT-GLUCOSE [id number] 17:50:00 Test Item Value Reference Range Interpretation Comments POC-GLUCOSE METER 161 mg/dL 70-110 H : TESTED A T [facility] 67[address] (BEAKER) (test code = [facility], 1538) [address]: Industrial Safety Engineer/Techni ashish ID = [id number] for Sa Ramirez blake Tissue [id number] 16:24:00 Test Item Value Reference Range Interpretation Comments Case Report (test code Surgical Pathology = 104) Report Case: [id number] Authorizing Provider: Dana Perla Collected: 04/26/2020 10:59 AM MD Sal Ordering Location: [facility] Received: 04/26/2020 02:14 PM SERVICES Pathologist: Lea Santillan MD Specimen: Explant, Lap Gastric Band for I and D DIAGNOSIS (test code = y6tahOTmWUOdq9xyNLCrfAB 3220) uZzEwMzNcZnRuYmpcdWMxIH qtkxLhULdsw5CaK3KhPvWrZ FxhbnNpXGRlZmxhbmcxMDMz AJZ5qpYoKMBhPMipBYAiDYg gVx0xrVXwdHqhYiWtHINvj5 ciigINxaurwDp3n0vkZSAbI nI8zWDeMDikN1mhfdPigBHt LZClXEn9gJ68JKGafN3brZG sIDtccmVkMFxncmVlbjBcYm e8DRDlU7ewTCIbDVFlN7LzF F1wIWJaBga1CCG0ZVI8dPrt n5G9fAVmwHWcdYqnTwNxXgR fVPVGi0KtMRf1uHryW4TxXP CsXuS8kNAyCFCsDSqyKQQeI CAzfnC6rF70YBultvE6lJEv d6Wox18mc983rM6svLQwKGL 6PNRzJPLbkIWpENVrDFH9XY EtuYJwE5p4PhPiwQEyD6I7Y cIhfYQiQ7J6TvTbrQBuR0T0 YzXeuKAaIGAswFBzNq3pmRZ tjUKfds8adm29TOV8w8BbgS owCBE7GKN1FoWeVo9grYHuX MCkLL9bCmZlbWCeLCLxeg61 uRjdRLuksiBteU1eHlCiNOK ozDJpJQInFZ7fhCRsQCXjsJ 5ucmxjXHBnYnJkcmhlYWRcc UthtsSmBc0taWkiONI1SZfw L2uisM2fEtQ0EUjlO1ynxZ8 uSSq7GLwupXB5FJRpeG3vMK 3ldcwdu8xiNdOmKF9xqzysq 0btNqCgMK8iacw1p6npDjLg DS2dmylbj9poWeYaVFgeRIL iqpksTHTxa8IhdspeNOZvx1 QmL1MiiHxsJ62cfShsS94rE ZBsdRhnzD7xaWfsrH5yQrCe ZnMyMFxxbFxwbGFpblxmMFx mczIwXHBsYWluXGYxXGZzMj WpRA9eI0UYADUPZxshZ4GJA CDJHvDORP0EVGVZIR5MYoQN OlxwYXIgICAgICAgICAgIC0 zR0STVBOSLrBDPV6SDWvMUB 3PLEACACYhVLcIO1BCQY8FQ FkpXHBhclxwYXJccGFyfXtc jaFbIYnag7SpWPoyGBAiOY5 hkJmvTWBlDA0lGWLlQ9wzbL 3lcya2YzXpKEEdAlO1KIDln mC3Vmd7YOUqWXwff1ipz1Ws NANdBXv2iDowRzVgBKHys4b zcyBcZmNoYXJzZXQwIEFyaW FhX052f9nra8ryhoErsJL3U LDlOQP6POzwlfFpmdI6UPfw cGEiNcE0RUqyqjGjMJltwyO xriCzGky5UISgQ164NCO2aN jdl9bgWZG7YJDhNCNcFzYiD a2ggAFzM031KYKdFEHETSCi bTv6MFRazhWigtZlmKBSo32 6F741y0aaZYTrbeSqsRpYho jxu6ytT041OYWqmBGuepVeI uKbXPZmkGTexQO9CUGrBD2j tagrGLopRFcmONXolgJ8QUG nqYVzW0KwWCYbNE0uketnSE Q9YKooELAuLDM3MdKdWEJtm 4Hqley8OrNtgc3mpa26GGO4 v7MpcAinZOV1LAY9AcOvTn8 tzUJdCNUmFO1nAwZnhKItLE Jbwv25eMzyTXgyPSR6YHJbp cQae2Hsk0ckDtKdmsFoS2wd D8WjQJTiFYBpQKKaVdGnvqM ih5Rod4EebIHqoCm7f7txFX GwSMHgtNiuw4llNQS6TUQzm EPvV3yckW6tSCHqLS4onsdu g1zgTLddHYikVRLbxAQ1ktW 6AJYnuMPfS1IbhH1iFEUkDU hlEERspog2ZdIeOm5nbCOcn TcyMFxzYmtwYWdlXHBnbmNv bnRccGduZGVjXHBsYWluXHB sYWluXGYwXGZzMjRccWxcbG FuZzEwMzNcaGljaFxmMVxkY sHzHHEgVAuuC5rhNdEjIiPc Vas4LUTtcXBtLGYdLwf3MDG meTKmCKTOpScfpD5xQCInhC lcbU8hhHM8MNQmhaFodOGHr H2jKGSPrM1pJjP6KzBaBvY3 USO3KWVmxWDqhO0= CPT Code(s) (test code v5alkYCcGCSytWYiNySbGMK = 3357) qNYFzg3yzYILqyHRhFvRuOb NcZnRuYmpcdWMxXGRlZmYwe 7oyc269zIClx9buOZZoElI4 fXIiVTGpqMMsN975w6oli9d htkFvqNH4IKCzDNX8MLsuru QgakB5XYgbxMCmYwY0VKika iHeQQmbzsRrzgHbVei8SNOe F454LHA3pJadf4qvETT3VWL tIKZiWjVaSz7lyKZbE067BB IdRENTCJIeyOv7LXNvolChu qVxjUQHd390O697b3dyMAXg cgRyyXpEmluou2gdZ565BKE hcGVydzEyMjQwXHBhcGVyaD P6QMXoYV4zznuyPyErDX0rm oevEpGiMH5caon5PhSdVZ1f cmdiNzIwXGhlYWRlcnkwXGZ yk8LruxpaFZ9cL5Ihw4P7qF 9maXRcZGVmdGFiNzIwXGZvc d0tgHPtPIuhr9TmYVS4fjY8 iKHirEBdTMRwBO66Mdfbv2L rDmsuKYF3VZKealPrg3Eac6 iwMpFfyfEmK4fdF5BdCAHaL UAdAEPwFcAvubGao1Tld4Sz xVFbrPv8e9zyLBRqBKTebEp js4zpPKG0STWeS4X7mUChu0 mkNGlaDLLaeEM5osbcGOtwD KMgmmU6fgseSTteREFfqNF4 ijknDTifHHSuUvS0moaaTWp qALCoKIG9CSbrx967OLV7VI xzYmtwYWdlXHBnbmNvbnRcc GduZGVjXHBsYWluXHBsYWlu XGYwXGZzMjRccWxccGxhaW5 dAxTxUeMrHPvkDO4uVZWqS8 ftnIDqLRTkGBQcO7spAfKrw R0jzYxjTOtkqtMdRHc3OdKk XHBhcn0= CLINICAL HISTORY (test t1kyaIWcTVHbgOWwRlJnPCG code = 3356) gOPOyc3qnKMXfsTPmEdVsDs NcZnRuYmpcdWMxXGRlZmYwe 3ukp553vNDgm2uxRHBzOpG8 eBEnZKIfhIDlG860TCKjEMd ub8nwe9ZkJYWgbSUyc4R2RF QEihrbwLv9gOlmX98gn0X6W ngfY2ttRTZiKFRjF7HwQX4v QRRzCiy8ZLA8ISY6UKFoSVF bR7GoCD4qXTDsgAQlZDh7b8 ccaBvsQPYuTKM9h7ivZBome wCfSZ0zrb4spYt5z4zlfiJf ZJYoSNVrjCMZPCDxA7YqmXg qHc6wzJg8wGjoPfbnGYN2Kp t9KM4lur87yyh0pVeiFUJtv fnyOoZ6UWrjFYBjejirEEz4 MFxtYXJnbDcyMFxtYXJncjc yMFxtYXJndDcyMFxtYXJnYj ipQGmoDOIeIIO1SMabx275A XC5TSvis8gmc7zpdRJgJub5 VFFtTnAnMxnaNFmze3Ccd5j hZFTwvq9xQDY5ePIsuZttx6 X0tCXzSPPzaPZfxeTtCUJhX uD1ODdrZS9amu95ZDAdNRI3 st2qdEEzjIcrfbGbxSDyYAu bU3OsQUFrx016GDVpB0BtOB Yfw4N0hkQtIyLlSVHojZQ1n fT0QVVkCBx0uAJcnjP2jgNe dFYzN4wngT46AjNkuTGpW4V edJ06FgFodRAuJ2NwrY14Vb SahUIpA5SetD84ObCfnOSpC DDknUTrIj6hvWHnnSQcd1Vn gUCuXFcjU77bh112RWSlxjA kI9xsjLSsfwuzlZJmeupxZN llplP9UEn1qkJojzsuqCupz GFpblxmMVxmczIwXGxhbmcx KJFmJWqiB1znDhVzWTAqzJh dYIqyj9AsWLCqIRCjWjYcQZ 6rIjdmKB8kMWHngWfvtPnaW SBPdGhlciBoeXBlcmxpcGlk TA8yMVLmzAnqDDMIKvN1obS ygOf3XAXmhMGoyIZsyY6rIK BcbGluZSBIZWFydCBkaXNlY RFtDLE4znVbAJXyAtaeTPNk cGFyfQ== SPECIMEN SOURCE (test v2eciAScLMVnsYSlSfUpYRF code = 3377) gJDIls9gtZMLvpTDuKxYyPf NcZnRuYmpcdWMxXGRlZmYwe 1csz946vGDru6upZZQzNjP9 zFZuYGVlvEKaV489w7bas9s qkrPvjIO7YZLtPVG2JNdpaz CdkvW3CInyvJUvNcS0NSbfn sSuAEwphaQvhlYzRnc4BFUe S248TTP7uQfru8ovBWY3RYZ eFRVmZsNeOt2ucNScF145AF TmCMVCYDHzuMk3GPLhfkMcw nTtrUUAi576R480b2uaOUFg pcDrpIzCpghaw0qvZ330HJY hcGVydzEyMjQwXHBhcGVyaD S6NNXgBY8xrudtDlUgQS4lh mtwDuSxLN6fgsv6BzYfTU5s cmdiNzIwXGhlYWRlcnkwXGZ yn7BlsdsfYC7aP5Zmk8P4lX 9maXRcZGVmdGFiNzIwXGZvc c7xnOYtUWlcz1OuKRC3piY4 hZJduQCiZCLnSP83Cnhxp9Y yXgjbDRM5PEXtxtPjk5Omn1 rvNpLhmnPqN7gzX9LjPRWyO IVmDRMvNzYpysYtx8Xix8Wx vTWmrGe9c6rzEIBxIPJiqRe sc9vsHAN0WONkE8R8bMSxb6 zoNCkwHIKkvKC9mhtsWWtkN RTlsbM3qrpiPNtrDZVieZB4 acjdBMsgAXAyLfO9wnkzZKq jJBWoPRP0HGksn506YVM3VZ xzYmtwYWdlXHBnbmNvbnRcc GduZGVjXHBsYWluXHBsYWlu XGYwXGZzMjRccWxccGxhaW5 eJtCnTbKnCCrsEX4xPLReA2 jjkBUjZELvWLRyH8tqHxHjn B8dwBipRKykwqWxDLxom1Hb aWNccGFyfQ== GROSS DESCRIPTION g4egoGLrVRHdmEItPkWiOFU (test code = 3366) eKSKjk6dnZYAmuEGmGaTpOq NcZnRuYmpcdWMxXGRlZmYwe 7lcy161bPDkc6ncDVXnHaM6 zPAnYGEbuAHvI736w0zze1s bjlLtzYK2OZUbYBZ4GVzpsa IyfhL7KVqbiCIyBhR9LTotb hSnXYscdeNzgkYcUyo0IOQl B444HZZ9rLzwf5qdRZZ7KUD rXGImHlGlWc6oxMTcA810CM VaZTPSOUZyuSk8MMJvxtNcn rXxwOXVp320Z118z8hwJIBw wtWqfHzCvrizz0zuT059HAA hcGVydzEyMjQwXHBhcGVyaD U3JINgOH1xnzvvDyIpEQ1gy gciNhXxBM0zddl4LsKwMM3i cmdiNzIwXGhlYWRlcnkwXGZ vu0EcxusgWT2aS7Mqu6T8xH 9maXRcZGVmdGFiNzIwXGZvc y8cuVZfASuaa4XtZCY2brZ4 uHQdeQXkPMLpFB10Hwfkv5H jAtplSBZ4PLIfinQmp6Dla4 vnChEwdiPsU7lyX7XqAZQoW ZYlWHApGbQlkjDon1Njp5Ij uFTvcDi0v7teXIVrXFXtcHo le1roLIU6IHDbE8U4vPYkx7 olNJztSIQrpJG6ihjlQDvwA XNqqqU4hwlcBQfrUIVbrWK7 bxrvMDzjTFJlNjH1imznZHl jOGCjJWZ9GLbil095DZT1JL xzYmtwYWdlXHBnbmNvbnRcc GduZGVjXHBsYWluXHBsYWlu XGYwXGZzMjRccWxccGxhaW5 kXoNiKeRjJUfmJC5gMIZjV8 rgqWDwJVAkDPYuH9xcUnUym V1ncSibVHyyewXpIRZpPLWj Z1SkkpAwMIAnBTZmRDceArP sMLVrk2h6lNU7bUJkgXQ7xH UeuIabKrDwLC2kwJZnIH3mL ZkjILbdiwPqm0AdCV92pVEu iyBctkQdGmE8gDudtoNhMYw hZEScPMXdgMVkT7IwPSCuAX 7lWLawy5ArcXGlIhSiWMKtU OPdlXSltxfcVJ66XDknAG71 NWpzKdQqsWY5aLSwHLMyTGB bB80jyV7lpJRgW8OpRIU3YB AuMyBjbSBpbiBkaWFtZXRlc nL5fAi0OXF9wWAnFgBdOZie byByZWNlaXZlZCBpcyBhIGN oxkP9hPPcUDVsmdTGpIvmsw ftnrFwieXrFRHAh3S2HRUzD 0H6wQFdQBXqwNItlckrKgAc bSBpbiBkaWFtZXRlciBhbmQ xRI08RKLxZPjiTUjcrPryoD 4gIFRoZXJlIGlzIGEgMTYuN MUgzMAaczBkNB2zuPfkQvqv IA6rKMSnFQwjDWTrVE7qlZQ fFYT9sWCkzPTiMKEfkOhtsF RhLqOxAEosQODkngWqXB4RY IKcEMamTXscp5TbaYMsUGR7 vHPrHRWig8RvdzMbWiVqNtT sM4iRXlfrLyNvAQR3OC01vI QxoirpAaM0BY4aUlZmcZzoR HJhbmdlOiAwLTEwIGNjLiIg FBMdT4Usq7VhbNtxqC2rtuQ hfTDcimT7JZtudb4sBV8pXH AeP5Hnq93yYCWlONLcnGYsq GH0DMEvH9Uhr9Seg43szO3l mUVrHUMfmcELoCUtm4MjCEr yYXVuLCBNSFMsIFBBIChBU0 NQKVxwYXJccGFyXHBhcn0= MICROSCOPIC x4xyjSUbMFOnoRBrAvErTRD DESCRIPTION (test code jLOLdv3akFYTqnOKwFnNcQm = 3371) NcZnRuYmpcdWMxXGRlZmYwe 1tsw716tPAyj7ehULCcGqZ1 sIUmEGUgeTDgM869c7qui4w odyVohPS5ZWXcJCH4KHtzfm StacY3BRpnsAQgOtM4PSeqp xVhHPwzbaJzilKxUed2WPGq S401VQP9yEcki1lwJDA0QYM hSYDpLaZoSg4fsRCgD150OK TlXTADDRVrwRy3GFAzmhBig kLyeDYKq497Z899f1gcPNIx ntAucApEucjoy5anC802ICG hcGVydzEyMjQwXHBhcGVyaD X0DWLeES3wefguNwDhFI3rx nvmMnEyLR5odbk2UjNpBL5n cmdiNzIwXGhlYWRlcnkwXGZ wp5FabmzxFN1jG1Mon6U7xH 9maXRcZGVmdGFiNzIwXGZvc s2dfMSzMQqsp3KeCUU6txE9 kTJxmAFjLVJjBK99Purus1G zFvbcSEL2MKPfskFim0Jhn5 ndLvVkbeMoW3doH4BcQEFuX UQxDNFvCaGemiBaf4Flj4Dk uMHzmTt8e4zjISRxODBliDb is3lhMOA8QIEaH0S6eFVax8 suIDboZUTzsRS7eotfXXrkM OYsonQ7wwdkTRtfJKNekSZ2 mzmyTYrbYPImQxI5vctmHQs nFPGyMSU6YPkkn729EJK0BH xzYmtwYWdlXHBnbmNvbnRcc GduZGVjXHBsYWluXHBsYWlu XGYwXGZzMjRccWxccGxhaW5 sQeMmKbWnNXejZP6dWSGbF6 veaKJaXPWrOOJyY9thOoVvn M3awZptOUaersCyVY2cQBtl YXJ9 [facility] [id number] 16:24:00Surgical Pathology Report Case: [id number] Authorizing Provider: Dana Perla Collected: 04/26/2020 10:59 AM MD Sal OrderingLocation[facility] Received: 04/26/2020 02:14 PM SERVICES Pathologist: Lea Santillan MD Specimen: Explant, Lap Gastric Band for I and D A. GASTRIC, GASTRIC BAND, REMOVAL: - GASTRIC BAND IDENTIFIED (GROSS ONLY) Signing Pathologist Direct Phone Line: [phone] signed by Lea Santillan MD on 04/26/2020 at 4:24 [id number] obesityOther hyperlipidemia Obstructive sleep apnea Heart disease, unspecified GastricA. Received fresh labeled with the patient's name, medical record number and "explant" is an Allergan brand gastric band measuring 5.5 x 5.5 x 2 cm with a 13 cm in length by 0.3 cm in diameter white tube. Also received is a circular peters Allergan brand Port-A-Cath measuring 3 cm in diameter and 0.9 cm in height. There is a 16.5 cm in length by 0.3 cm in diameter attached catheter. The Port-A-Cath is inscribed with "lot number: [id number] part number: [id number] full range: 0-10 cc." A gross photograph is taken. No sections are submitted-gross only.KEVIN Sigala, MARLENE (ASCP)N/AType and screen, [id number] 13:43:00 Test Item Value Reference Range Interpretation Comments ABO/RH AUTOMATED (BEAKER) (test A POSITIVE code = 2260) Ab Scrn (test code = 890-4) NEGATIVE [facility] 12:53:00 Test Item Value Reference Range Interpretation Comments Sodium (test code = 137 meq/L 648-073 2711-2) Potassium (test code = 4.2 meq/L 3.5-5.1 2823-3) Chloride (test code = 103 meq/L 98-107 2075-0) CO2 (test code = 8-9) 26 meq/L 22-29 MANE (test code = MANE) Industrial Safety Engineer ID - PIAYA L Lab Interpretation (test Normal code = 36335-1) [facility] CaliforniaB[facility] and [id number] 12:53:00 Test Item Value Reference Range Interpretation Comments BUN (test code = 22 mg/dL 7-21 H 3094-0) Creatinine (test code 0.85 mg/dL 0.57-1.25 = 2160-0) BUN/Creatinine Ratio 25.8824 For a n ormal (test code = 3097-3) individ ual on a normal diet, th e reference interval for th e mass ratio rang es between 12:1 an d 20:1 (BUN in mg/dL/creatinin e in mg/dL) EGFR (test code = 73 mL/min/1.73 [place] [address]-5) NOT ACCURATE CREATININE CLEARANCE IN PREDICTING GLOMERULAR FILTRATION RATE . ESTIMATED GFR I S NOT APPLICABLE FOR DIALYSIS PATIENTS. MANE (test code = MANE) Industrial Safety Engineer ID - PIAYA L Lab Interpretation Abnormal (test code = 77885-3) [facility]OL[facility]2020-07-07 12:53:00 Test Item Value Reference Range Interpretation Comments SODIUM (BEAKER) (test code = 381) 137 meq/L 136-145 POTASSIUM (BEAKER) (test code = 4.2 meq/L 3.5-5.1 379) CHLORIDE (BEAKER) (test code = 382) 103 meq/L 98-107 CO2 (BEAKER) (test code = 355) 26 meq/L 22-29 Industrial Safety Engineer ID - PIAYA LBUN AND CREATININE [id number] 12:53:00 Test Item Value Reference Range Interpretation Comments BLOOD UREA NITROGEN 22 mg/dL 7-21 H (BEAKER) (test code = 354) CREATININE (BEAKER) 0.85 mg/dL 0.57-1.25 (test code = 358) BUN/CREATININE RATIO 25.8824 For a n ormal (BEAKER) (test code individu al on a = 1800) normal diet, th e reference inter evelia for the mass ra sravan ranges between 12:1 and 20:1 (BUN i n mg/dL/creatinin e in mg/dL) EGFR (BEAKER) (test 73 mL/min/1.73 ESTIMA DESMOND GFR IS code = 1092) sq m NOT ACCURATE CREATININE CLEARANCE IN PREDICTING GLOMERULAR FILTRATION RATE . ESTIMATED GFR I S NOT APPLICABLE FOR DIALYSIS PATIEN TS. Industrial Safety Engineer ID - PIAYA [id number] 12:36:00 Test Item Value Reference Range Interpretation Comments Hemoglobin (test code = 13.9 11.2- 15.7 GM/DL 786-4) MANE (test code = MANE) Industrial Safety Engineer ID - [id number] Lab Interpretation (test Normal code = 84691-0) [facility] California[facility]MOGLOBIN2020-07-07 12:36:00 Test Item Value Reference Range Interpretation Comments HEMOGLOBIN (BEAKER) (test code = 13.9 GM/DL 11.2-15.7 410) Industrial Safety Engineer ID - [id number], CHEST, 2 [id number] 15:35:00Reason for Exam:- >bariatric surgery status; abdominal pain,LUQ, Gastroesophageal reflux disease,esophagitis presence not specificied, pre-operative clearanceFINAL REPORT History provided: Bariatric surgery, abdominal pain CHEST PA ANDLATERAL COMPARISON STUDY: 01/01/2019 Heart size normal. Dual lead left subclavian ICD. Lungs clear and vascularity normal. Signed: Jc Tobar MDReport Verified Date/Time: 08/26/2019 15:35:48 Reading Location: [facility] Diagnostic Imaging Reading Room - [facility] 1.310.12 XR chest 2 [id number] 15:35:00 Interface, External Ris In - 08/26/2019 3:38 PM CSTFINAL REPORT History provided: Bariatric surgery, abdominal pain CHEST PA AND LATERAL COMPARISON STUDY: 01/01/2019 Heart size normal. Dual lead left subclavian ICD. Lungs clear and vascularity normal. Signed: Jc Tobar MDReport Verified Date/Time: 08/26/2019 15:35:48 Reading Location: [facility] Diagnostic Imaging Reading Room -[facility] 1.310.12 [facility] [id number] 09:50:00 Surgical Pathology Report Case: [id number] Authorizing Provider: Darian Fry MD Collected: 07/23/2019 0722 Ordering Location: [facility] Endoscopy Received: 07/23/2019 1333 Services Pathologist: Lea [...] DYSPLASIA, MALIGNANCY Signing Pathologist Direct Phone Line: [phone] signed by Lea Santillan MD on 07/27/2019 at 9:50 [id number]. Biopsy gastric, description rule out H. Pylori. [...] evaluated Immunohistochemistry technical testing was performed at [facility], Pathology Laboratory where it was developed [...] to perform high complexity clinical laboratory testing.HEMOGLOBIN [id number] 12:55:00 Test Item Value Reference Range Interpretation Comments HEMOGLOBIN A1C (BEAKER) (test code = 4.8 % 4.3-6.1 368) LIPID [id number] 08:01:00 Test Item Value Reference Range Interpretation [...] 130-159 High 160-189 Very High >=190COMPREHENSIVE METABOLIC [id number] 08:01:00 Test Item Value Reference Range Interpretation [...] FOR DIALYSIS PATIEN TS. TSH/FREE T4 IF [id number] 06:11:00 Test Item Value Reference Range Interpretation Comments THYROID STIMULATING HORMONE 2.58 uIU/mL 0.35-4.94 (BEAKER) (test code = 772) VITAMIN B12 AND [id number] 06:11:00 Test Item Value Reference Range Interpretation [...] 0-0 (BEAKER) (test code = 413) URINALYSIS [id number] 02:49:00 Test Item Value Reference Range Interpretation Comments RBC UA (BEAKER) (test code = 519) < /HPF WBC UA (BEAKER) (test code = 520) 1 /HPF MUCUS (BEAKER) (test code = 1574) Many SQUAMOUS EPITHELIAL (BEAKER) (test 4 /HPF code = 516) URINALYSIS WITH MICROSCOPIC IF [id number] 02:46:00 Test Item Value Reference Range Interpretation [...] pg/mL 0-100 (test code = 700) TROPONIN [id number] 15:40:00 Test Item Value Reference Range Interpretation [...] acute neurological disease, and persistent tachyarrhythmia.BASIC METABOLIC [id number] 15:39:00 Test Item Value Reference Range Interpretation Comments SODIUM (BEAKER) 140 meq/L 136-145 (test code = 381) POTASSIUM (BEAKER) 3.8 meq/L 3.5-5.1 (test code = 379) CHLORIDE (BEAKER) 102 meq/L 98-107 (test code = 382) CO2 (BEAKER) (test 28 meq/L 22-29 code = 355) BLOOD UREA NITROGEN 14 mg/dL 7-21 (BEAKER) (test code = 354) CREATININE (BEAKER) 0.72 mg/dL 0.57-1.25 (test code = 358) GLUCOSE RANDOM 105 mg/dL 70-105 (BEAKER) (test code = 652) CALCIUM (BEAKER) 10.3 mg/dL 8.4-10.2 H (test code = 697) EGFR (BEAKER) (test mL/min/1.73 INSUFFIC IENT CLINICAL code = 1092) sq m DATA TO CALCULA TE ESTIMATED GFR. [id number] 15:33:00 Test Item Value Reference Range Interpretation Comments MAGNESIUM (BEAKER) (test code = 2.0 mg/dL 1.6-2.6 627) RAD, CHEST, 1 VIEW, NON [id number] 15:29:00Reason for exam:->chest painIs the patient ?->UnknownFINAL REPORT TECHNIQUE: Frontal chest radiograph dated 01/01/2019. CLINICAL HISTORY: Chest pain COMPARISON STUDY: None IMPRESSION:Left-sided, dual-chamber defibrillator is in place. No pleural effusion or pneumothorax. Cardiomediastinal silhouette is normal in size. No pulmonaryedema. No fracture. Signed: Bg Zamudio MDReport Verified Date/Time: 01/01/2019 15:29:08 Reading Location: [facility] Radiology Reading Room [id number] 15:23:00 Test Item Value Reference Range Interpretation [...] for patients with mechanical heart valves. SCREEN, [id number] 15:23:00 Test Item Value Reference Range Interpretation Comments TEST URINE (BEAKER) (test Negative code = 583) CBC W/PLT COUNT & AUTO [id number] 15:15:00 Test Item Value Reference Range Interpretation [...] (BEAKER) (test code = 2801) CT, BRAIN/STROKE [id number] 14:33:00Reason for exam:->NUMBNESSReason for exam:->HEADACHEIs the patient [...] recommended for further evaluation. Signed: Latisha Youssef Verified Date/Time: 01/01/2019 14:33:00 Reading Location: [facility] Radiology Reading Room
--- OUTSIDE RECORDS SUMMARY | 2020-05-11 19:35 | XMS REPORT | Summary of Care ---
:1975 Author Organization [facility] [place] [address] Care Team Providers Name Role Phone Alison Parker DO Primary Care Provider Reason for Visit Reason Comments Follow Up Encounter Details Date Type Department Care Team Description 05/02/2020 Office Visit [facility] Kandis Wesley i, FNPC Follow Up Bariatric Surgery [address] Floor; [address] [place] [address] [place] [address] [phone] Allergies Active Allergy Reactions Severity Noted Date Comments Ketorolac & Bupivacaine & Anaphylaxis High 10/28/2018 Ra sh Lido Morphine 10/28/2018 Sob SOB, vomit, low BP Toradol High 04/18/2020 documented as of this encounter (statuses as of 05/02/2020) Medications Medication Sig Dispensed Refills Start Date End Date Status BYSTOLIC 5 MG TABS Take 5 mg by 3 03/06/2019 Active mouth. Evolocumab with Inject into the 0 Active Infusor (REPATHA skin. PUSHTRONEX SYSTEM) 420 MG/3.5ML SOCT alprazolam (XANAX XR) TK 1 T PO QAM. 0 04/06/2020 Active 0.5 MG XR tablet topiramate (TOPAMAX) TK 1 T PO QHS. 0 01/25/2020 Active 50 MG tablet documented as of this encounter (statuses as of 05/02/2020) Active Problems Not on filedocumented as of this encounter (statuses as of 05/02/2020) Social History Tobacco Use Types Packs/Day Years [...] been in contact with No / Unsure 04/30/2020 2:34 PM CDT someone who was confirmed or suspected to have Coronavirus / COVID-19? documented as of this encounter Last Filed Vital Signs Vital Sign Reading Time Taken Comments Blood Pressure 118/81 05/02/2020 2:38 PM CDT Pulse 80 05/02/2020 2:38 PM CDT Temperature 36.8 C (98.2 F) 05/02/2020 2:38 PM CDT Respiratory Rate - - Oxygen Saturation - - Inhaled Oxygen Concentration - - Weight 93.4 kg (205 lb 12.8 oz) 05/02/2020 2:38 PM CDT Height 157.5 cm (5' 2") 05/02/2020 2:38 PM CDT Body Mass Index 37.64 05/02/2020 2:38 PM CDT documented in this encounter Patient Instructions Patient InstructionsAram, [place], MA - 05/02/2020 2:39 PM CDTYour Body mass index is 37.64 kg/m. Body mass index (BMI) can help [...] Where can you learn more? Go to www.[employer] Go to the Search tab with the magnifying glass on the right side of [employer] home page. Enter S176 in the search box to learn more about "Body Mass Index: Care Instructions." documented in this encounter Progress Notes Kandis Queen, TUNDE - 05/02/2020 2:00 PM CDT [facility] BARIATRIC SURGERY POST-BARIATRIC SURGERY PROGRESS NOTE DEPARTMENT OF SURGERY [address] [facility] [address], [address] [place] [address] Encounter Date: 05/02/2020 Pt is 2 weeks s/p Lap Band removal + Revision to Gastric Bypass. Reports she is doing well but admits to fatigue. Reports her blood pressure has been within range of 120/80 although today its high in clinic. She is tolerating her post- bariatric diet. Reports pain with swallowing liquids. Reports trying to get adequate protein, currently at 50 grams. Reports 20-35oz fluid intake. Admits to right sided incisional pain. Reports normal bowel movements. Not currently making efforts to exercise regularly. She states she ordered her vitamins and will start taking as soon as they arrive. Past Medical History: Diagnosis Date Heart disease Heartburn Hypertension Migraine headache There were no vitals taken for this visit. Wt Readings from Last 3 Encounters: 04/18/20 213 lb 6.4 oz (96.8 kg) 12/02/19 228 lb 3.2 oz (103.5 kg) 08/26/19 225 lb 9.6 oz (102.3 kg) There is no height or weight on file to calculate BMI. BMI 08/26/2019 12/02/2019 04/18/2020 BODY MASS INDEX 41.26 41.74 39.03 30-day Follow-up Outcomes Review Was anticoagulation initiated for presumed/confirmed vein thrombosis/PE? Was an incisional hernia noted on exam? no Was an operative drain still present at 30 days?no Did the patient visit the ED within 30 days of the principal procedure?no Was the patient treated for N/V on an outpatient basis within 30 days of the principal procedure?no Did the patient have a hospital readmission within 30 days of the principal procedure?no Did the Patient have an Intervention within the 30 day Postoperative Period?no Did the Patient have a Reoperation within the 30 day Postoperative Period?no Long-Term Follow-up Comorbidity review: Is patient on medication(s) for GERD? Yes Is patient on medication(s) for hyperlipidemia? No Is patient on medication(s) for hypertension? No (as needed) Is patient on non-insulin medication(s) or insulin? No Is patient using CPAP? No NAD PERRLA RRR, no murmurs, rubs or gallops CTAB, no rhonchi, rales, or crackles ABDOMEN SOFT, NT/ND. No hernias noted Abdominal incisions C/D/I Encounter Diagnosis Name Primary? Weakness Yes Follow up in [address] Mansoor Li Check CBC + Iron Panel Take Pepcid every day Meet protein Goal of 60-90 grams and fluid intake of 48-64 oz Continue to take vitamins daily Continue medications as directed Instructed to exercise daily. Recommended to follow dietary instructions, including meal planning, restricting portion sizes, avoiding grazing and high-calorie snacking. documented in this encounter Plan of Treatment Date Type Specialty Care Team Description 05/16/2020 Office Visit Bariatrics Jamari Saxena MD [address] [facility] 8th [address] [place], [place] [address] [phone] Name Type Priority Associated Diagnoses Order S chedule CBC W/O DIFF W PLT Lab Routine Weakness Ordered: 05/02/2020 IRON, TIBC AND FERRITIN PANEL Lab Routine Weakness Ordered: 05/02/2020 Health Maintenance Due Date Last Done Comments MAMMOGRAM ANNUAL 1976 TETANUS SHOT (ADULT) 1991 HIV SCREENING 1994 CERVICAL CANCER SCREENING 3 YEAR FOLLOW UP 1997 FLU VACCINE > 6 MONTHS 05/13/2020 BMI FOLLOW UP PLAN 04/18/2021 04/18/2020, 12/02/2019 documented as of this encounter Results Not on filedocumented in this encounter Visit Diagnoses Diagnosis Weakness - Primary Other malaise and fatigue S/P gastric bypass Bariatric surgery status documented in this encounter Insurance Payer Benefit Plan / Subscriber ID Effective Dates Phone Addre ss Type Group [facility] OPEN xxxxxxxxxxx 2018- [address] PPO ACCESS - COUNT INCLUDES THE [facility] [address] [id number] documented as of this encounter
[2020-05-11] MEDS ORDERED: NA CHLORIDE 0.9% 1,000 ML ONE ×2 (20:48→22:11)
--- NOTE | 2020-05-11 21:01 | RAD REPORT ---
EXAM DESCRIPTION: RAD - Chest Single View - 05/11/2020 8:47 pm CLINICAL HISTORY: recent hiatal hernia surgery right sided pain Chest pain. COMPARISON: Chest Single View dated 03/31/2020; Chest Single View dated 03/22/2020; Chest Single View dated 02/04/2019; Chest Single View dated 10/23/2018 FINDINGS: Portable technique limits examination quality. The lungs are grossly clear. The heart is normal in size. No displaced fractures.Multi lead pacer/ de fibrillator device is present. Pacer pack is present obscuring a portion of the left upper lobe. IMPRESSION: No acute intrathoracic process suspected.
[2020-05-11 21:02] LABS: Absolute Lymphocytes (CBC) 1.4 K/uL (0.7-4.9); Basophils % 0.6 % (0-1.3); Hematocrit 42.2 % (36.0-45.0); MPV 9.6 fL (7.6-11.3); RBC Red Blood Cell Count 5.04 M/uL (3.86-4.86)
[2020-05-11 21:13] LABS: ALT/SGPT 45 U/L (12-78); AST/SGOT 42 U/L (15-37); Albumin 4.1 g/dL (3.4-5.0); Alkaline Phosphatase 139 U/L (45-117); BUN Blood Urea Nitrogen 17 mg/dL (7-18); Bicarbonate 24 mmol/L (21-32); Bilirubin Direct 0.2 mg/dL (0-0.2); Bilirubin Total 0.6 mg/dL (0.2-1.0); Glucose Level 81 mg/dL (74-106); Lipase 88 U/L (73-393); Potassium 3.7 mmol/L (3.5-5.1); Protein, Total 8.7 g/dL (6.4-8.2); Sodium Level 141 mmol/L (136-145)
--- NOTE | 2020-05-11 21:15 | RAD REPORT ---
EXAM DESCRIPTION: CTAbdomen Pelvis W Contrast - 05/11/2020 9:07 pm CLINICAL HISTORY: Abdominal pain. s/p gastric bypass and hiatal hernia sx COMPARISON: Abdomen Pelvis W Contrast dated 07/15/2018; Abdomen Pelvis W Contrast dated 01/02/2017 ; Abdomen Pelvis W Contrast dated 08/19/2016; Abdomen Pelvis W Contrast dated 08/02/2016 TECHNIQUE: Biphasic CT imaging of the abdomen and pelvis was performed with 100 ml non-ionic IV cont rast. All CT scans are performed using dose optimization technique as appropriate and may include automated exposure control or mA/KV adjustment according to patient size. FINDINGS: The lung bases are clear.Postsurgical changes of gastric bypass procedure noted. Cholecyst ectomy. The liver, spleen, pancreas, adrenal glands and kidneys are within normal limits. No bowel obstruction, free air, free fluid or abscess. Moderate fat containing umbilical hernia. The appendix is normal. Mild sigmoid diverticulosis coli without diverticulitis. Mild subcutaneous fat st randing is seen in the main abdominal subcutaneous fat. No evidence of significant lymphadenopathy. No suspicious bony findings. IMPRESSION: No acute intra-abdominal or pelvic finding.
--- NOTE | 2020-05-11 22:06 | ER ---
Nurse's Notes [facility] Name: Vanessa Gonzalez Age: 44 yrs Sex: Female : 1975 Arrival Date: 05/11/2020 Time: 19:34 Bed 8 Private MD: Diagnosis: Dizziness and giddiness;Dehydration Presentation: 05/11 19:58 Chief complaint: Patient states: States having surgery 04/26/20 at [facility] for lp1 hernia repair and lap band removal; upper right abdominal pain radiating to back that has not improved, unable to tolerate drinking enough fluids, states lightheaded and feeling like she is going to pass out. Coronavirus screen: Client denies travel out of the [place] in the last 14 days. The client reports previous COVID testing was negative. Date of collection: April 24, 2020. Ebola Screen: No symptoms or risks identified at this time. Initial Sepsis Screen: Does the patient meet any 2 criteria? No. Patient's initial sepsis screen is negative. Does the patient have a suspected source of infection? No. Patient's initial sepsis screen is negative. Risk Assessment: Do you want to hurt yourself or someone else? Patient reports no desire to harm self or others. Onset of symptoms was May 11, 2020. 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 - Social history:: Smoking status: Patient denies any tobacco usage or history of. - Family history:: not pertinent. - Hospitalizations: : No recent hospitalization is reported. Screenin:03 Abuse screen: Denies threats or abuse. Denies injuries from another. Nutritional lp1 screening: No deficits noted. Tuberculosis screening: No symptoms or risk factors identified. Fall Risk None identified. Assessment: 20:27 General: Appears in no apparent distress. uncomfortable, Behavior is calm, cooperative, jd3 appropriate for age. Pain: Complains of pain in abdomen Quality of pain is described as crampy, pressure, tender. Neuro: Level of Consciousness is awake, alert, obeys commands, Oriented to person, place, time, situation. Cardiovascular: Denies chest pain, Capillary refill < 3 seconds Patient's skin is warm and dry. Respiratory: Reports pain with deep inhalation Airway is patent Respiratory effort is even, unlabored, Respiratory pattern is regular, symmetrical. GI: Abdomen is round non-distended, Abd is soft X 4 quads Abdomen is tender to palpation X 4 quads. Reports upper abdominal pain, bloating, Patient currently denies constipation, diarrhea, nausea, vomiting. : No signs and/or symptoms were reported regarding the genitourinary system. EENT: No signs and/or symptoms were reported regarding the EENT system. Derm: Skin is intact, Skin is dry, Skin is normal, Skin temperature is warm. Musculoskeletal: Circulation, motion, and sensation intact. Range of motion: intact in all extremities. 21:05 Reassessment: Patient appears in no apparent distress at this time. No changes from jd3 previously documented assessment. Patient and/or family updated on plan of care and expected duration. Pain level reassessed. Patient is alert, oriented x 3, equal unlabored respirations, skin warm/dry/pink. awaiting NS infusion before discharge. 23:30 Reassessment: Patient appears in no apparent distress at this time. Patient and/or jd3 family updated on plan of care and expected duration. Pain level reassessed. Patient is alert, oriented x 3, equal unlabored respirations, skin warm/dry/pink. Patient states feeling better. Vital Signs: 19:58 BP 131 / 103; Pulse 97; Resp 18; Temp 98.2(O); Pulse Ox 98% on R/A; Weight 95.71 kg lp1 (R); Height 5 ft. 2 in. (157.48 cm); Pain 4/10; 22:05 BP 131 / 86; Pulse 60; Resp 17 S; Pulse Ox 100% on R/A; jd3 23:30 BP 118 / 82; Pulse 63; Resp 16 S; Pulse Ox 99% on R/A; jd3 19:58 Body Mass Index 38.59 (95.71 kg, 157.48 cm) lp1 ED Course: 19:34 Patient arrived in ED. ag3 19:58 Arm band placed on right wrist. lp1 20:01 Triage completed. lp1 20:11 Adiel Eid MD is Attending Physician. rn 20:11 Jesus Almendarez RN is Primary Nurse. jd3 20:29 Patient has correct armband on for positive identification. Placed in gown. Bed in low jd3 position. Call light in reach. Side rails up X 1. Pulse ox on. NIBP on. 20:43 Inserted saline lock: 20 gauge in right antecubital area, using aseptic technique. jd3 Blood collected. 20:44 EKG done, by ED staff, reviewed by Adiel Eid MD. jd3 20:47 XRAY Chest (1 view) In Process Unspecified. EDMS 21:07 Abdomen In Process Unspecified. EDMS 23:30 No provider procedures requiring assistance completed. IV discontinued, intact, jd3 bleeding controlled, No redness/swelling at site. Pressure dressing applied. Administered Medications: 20:43 Drug: NS 0.9% 1000 ml Route: IV; Rate: 1000 ml; Site: right antecubital; jd3 22:05 Follow up: Response: No adverse reaction; IV Status: Completed infusion; IV Intake: jd3 1000ml 22:05 Drug: NS 0.9% 1000 ml Route: IV; Rate: 1 bolus; Site: right antecubital; jd3 23:31 Follow up: Response: No adverse reaction; IV Status: Completed infusion; IV Intake: jd3 1000ml Intake: 22:05 IV: 1000ml; Total: 1000ml. jd3 23:31 IV: 1000ml; Total: 2000ml. jd3 Outcome: 22:05 Discharge ordered by . rn 23:30 Discharged to home via wheelchair, with family. jd3 23:30 Condition: stable 23:30 Discharge instructions given to patient, Instructed on discharge instructions, follow up and referral plans. Demonstrated understanding of instructions, follow-up care. 23:31 Patient left the ED. jd3 Signatures: Dispatcher [employer] EDAdiel Cantrell MD MD rn Maria D Esposito RN RN lp1 Jesus Almendarez RN RN jd3 Gabriella White ag3 Corrections: (The following items were deleted from the chart) 22:06 21:05 Reassessment: Patient appears in no apparent distress at this time. No changes jd3 from previously documented assessment. Patient and/or family updated on plan of care and expected duration. Pain level reassessed. Patient is alert, oriented x 3, equal unlabored respirations, skin warm/dry/pink. jd3
--- NOTE | 2020-05-11 22:06 | EDPHYS ---
Physician Documentation [facility] Name: Vanessa Gonzalez Age: 44 yrs Sex: Female : 1975 Arrival Date: 05/11/2020 Time: 19:34 Bed 8 Private MD: ED Physician Adiel Eid HPI: 05/11 20:29 This 44 yrs old Female presents to ER via Ambulatory with complaints of abd rn pain, LIGHT HEADED. 20:29 The patient presents with abdominal pain in the right upper quadrant. Onset: The rn symptoms/episode began/occurred 1 week(s) ago. The symptoms do not radiate. Associated signs and symptoms: Pertinent negatives: nausea and vomiting, blood in stools, chest pain, constipation, fever, nausea, shortness of breath, vomiting. The symptoms are described as crampy, intermittent, sharp. Modifying factors: The symptoms are alleviated by nothing, the symptoms are aggravated by breathing deeply, touching the area. Severity of pain: At its worst the pain was mild in the emergency department the pain is unchanged. The patient has not experienced similar symptoms in the past. The patient has been recently seen by a physician:. Reports s/p hiatal hernia repair and lap band removal with gastric bypass 2 weeks ago, for last week having RUQ abd pain, not tolerating large amounts of fluid/food. Has been seen by her surgeon last week, told was normal healing process. No fever/vomiting/blood in stool/sob/cough. . HEAD GRINDER: 20:03 LMP N/A - Hysterectomy lp1 Historical: - Allergies: 20:03 Ketorolac; lp1 20:03 Morphine; lp1 - Home Meds: 20:03 Protonix 40 mg oral TbEC once daily [Active]; Xanax 0.5 mg Oral tab 1 tab daily lp1 [Active]; Repatha Syringe 140 mg/mL subcutaneous syrg 1 mL every 2 wks [Active]; Bystolic 5 mg oral tab 1 tab once daily [Active]; - PMHx: 20:03 prolonged QT interval; TIA; Pacemaker; Hypertension; High Cholesterol; GERD; lp1 Depression; Anxiety; - PSHx: 20:03 ; Cholecystectomy; lap band; Hysterectomy; Carpal Tunnel Repair; lp1 - Immunization history:: Adult Immunizations up to date. - Social history:: Smoking status: Patient denies any tobacco usage or history of. - Family history:: not pertinent. - Hospitalizations: : No recent hospitalization is reported. ROS: 20:29 Constitutional: Negative for fever, chills, and weight loss, Cardiovascular: Negative rn for palpitations, and edema, Respiratory: Negative for shortness of breath, cough, wheezing Abdomen/GI: Negative for nausea, vomiting, diarrhea, and constipation, Back: Negative for injury and pain, MS/Extremity: Negative for injury and deformity, Skin: Negative for injury, rash, and discoloration, Neuro: Negative for headache, weakness, numbness, tingling, and seizure. Exam: 20:29 Constitutional: This is a well developed, well nourished patient who is awake, alert, rn and in no acute distress. Head/Face: Normocephalic, atraumatic. Eyes: Pupils equal round and reactive to light, extra-ocular motions intact. Lids and lashes normal. Conjunctiva and sclera are non-icteric and not injected. Cornea within normal limits. Periorbital areas with no swelling, redness, or edema. Cardiovascular: Regular rate and rhythm. No pulse deficits. Respiratory: No increased work of breathing, no retractions or nasal flaring. Abdomen/GI: soft, mild RUQ and epigastric tenderness, surgical wounds c/d/i Skin: Warm, dry MS/ Extremity: Pulses equal, no cyanosis. Neuro: Awake and alert, GCS 15 20:46 ECG was reviewed by the Attending Physician. rn Vital Signs: 19:58 BP 131 / 103; Pulse 97; Resp 18; Temp 98.2(O); Pulse Ox 98% on R/A; Weight 95.71 kg lp1 (R); Height 5 ft. 2 in. (157.48 cm); Pain 4/10; 22:05 BP 131 / 86; Pulse 60; Resp 17 S; Pulse Ox 100% on R/A; jd3 23:30 BP 118 / 82; Pulse 63; Resp 16 S; Pulse Ox 99% on R/A; jd3 19:58 Body Mass Index 38.59 (95.71 kg, 157.48 cm) lp1 MDM: 20:11 Patient medically screened. rn 22:04 Differential diagnosis: post op complication, adjustment period to gastric bypass, rn pleurisy, atelectasis. Data reviewed: vital signs, nurses notes, lab test result(s), EKG, radiologic studies, CT scan, plain films, and as a result, I will discharge patient. Test interpretation: by ED physician or midlevel provider: ECG, plain radiologic studies, CXR neg for acute infiltrate or fluid. Counseling: I had a detailed discussion with the patient and/or guardian regarding: the historical points, exam findings, and any diagnostic results supporting the discharge/admit diagnosis, lab results, radiology results, the need for outpatient follow up, to return to the emergency department if symptoms worsen or persist or if there are any questions or concerns that arise at home. Response to treatment: the patient's symptoms have markedly improved after treatment, and as a result, I will discharge patient. Special discussion: I discussed with the patient/guardian in detail that at this point there is no indication for admission to the hospital. It is understood, however, that if the symptoms persist or worsen the patient needs to return immediately for re-evaluation. 05/11 20:28 Order name: Basic Metabolic Panel 05/11 20:28 Order name: CBC with Diff 05/11 20:28 Order name: Hepatic Function 05/11 20:28 Order name: Lipase 05/11 20:28 Order name: Basic Metabolic Panel; Complete Time: 21:17 [facility] 05/11 20:28 Order name: CBC with Automated Diff; Complete Time: 21:17 [facility] 05/11 20:28 Order name: XRAY Chest (1 view); Complete Time: 21: 05/11 20:28 Order name: Liver (Hepatic) Function; Complete Time: 21:17 [facility] 05/11 20:28 Order name: Lipase; Complete Time: 21:17 [facility] 05/11 21:04 Order name: Abdomen ; Complete Time: 21:17 [facility] 05/11 21:10 Order name: CREATININE WHOLE BLOOD; Complete Time: 21:17 [facility] 05/11 20:28 Order name: IV Saline Lock; Complete Time: 20:43 rn 05/11 20:28 Order name: Labs collected and sent; Complete Time: :43 rn 05/11 20:28 Order name: EKG; Complete Time: 20: rn 05/11 20:28 Order name: EKG - Nurse/Tech; Complete Time: 20:43 rn EC:46 Rate is 72 beats/min. Rhythm is regular. QRS [place] is Normal. [place] interval is normal. QRS rn interval is normal. QT interval is prolonged at 567 msec. No Q waves. T waves are Normal. No ST changes noted. Clinical impression: Normal ECG and Prolonged Qt. Interpreted by me. Reviewed by me. Administered Medications: 20:43 Drug: NS 0.9% 1000 ml Route: IV; Rate: 1000 ml; Site: right antecubital; jd3 22:05 Follow up: Response: No adverse reaction; IV Status: Completed infusion; IV Intake: jd3 1000ml 22:05 Drug: NS 0.9% 1000 ml Route: IV; Rate: 1 bolus; Site: right antecubital; jd3 23:31 Follow up: Response: No adverse reaction; IV Status: Completed infusion; IV Intake: jd3 1000ml Disposition: 05/11/20 22:05 Discharged to Home. Impression: Dizziness and giddiness, Dehydration. - Condition is Stable. - Discharge Instructions: Dehydration, Adult, Dizziness, Laparoscopic Gastric Bypass Surgery, Care After, Laparoscopic Gastric Bypass Surgery. - Medication Reconciliation Form, Thank You Letter, Antibiotic Education, Prescription Opioid Use form. - Follow up: Private Physician; When: As needed; Reason: Recheck today's complaints, Re-evaluation by your physician. - Problem is an ongoing problem. - Symptoms have improved. Signatures: Dispatcher [employer] [facility] Adiel Eid MD MD rn Pena, Laura RN RN lp1 Jesus Almendarez RN RN jd3 Corrections: (The following items were deleted from the chart) 21:04 20:29 Abdomen Pelvis W Con+CT.RAD.BRZ ordered. [facility] EDMD 23:31 22:05 05/11/2020 22:05 Discharged to Home. Impression: Dizziness and giddiness; jd3 Dehydration. Condition is Stable. Forms are Medication Reconciliation Form, Thank You Letter, Antibiotic Education, Prescription Opioid Use. Follow up: Private Physician; When: As needed; Reason: Recheck today's complaints, Re-evaluation by your physician. Problem is an ongoing problem. Symptoms have improved. rn
[2020-05-11 23:36] VITALS: TEMP 98.2
[2020-05-11 23:39] VITALS: BP 118/82; O2SAT 99
== END 2020-05-11 23:31 | disposition home or self-care (01) ==
LOC: ER 19:31
DX: E86.0 Dehydration (principal); I10 Essential (primary) hypertension; E78.00 Pure hypercholesterolemia, unspecified; F34.1 Dysthymic disorder; Z95.0 Presence of cardiac pacemaker; Z88.5 Allergy status to narcotic agent; Z88.8 Allergy status to other drugs, medicaments and biological substances; Z98.84 Bariatric surgery status; Z98.890 Other specified postprocedural states
CPT/HCPCS: 96361; 93005; 85025; 80048; 36415; 82565; 80076; 83690; 74177; 71045; 96360; 99284; Q9967; J7030 ×2

== ENCOUNTER 2020-05-24 23:41 | Emergency (ER) | payer OTHER ==
--- OUTSIDE RECORDS SUMMARY | 2020-05-24 23:43 | XMS REPORT | Clinical Summary ---
:1975 Author Organization [facility] Address [address] [place] [address] Care Team Providers Name Role Phone Alison [...] 04/26/2020 Anesthesia Event Fortunato Palma NP 04/26/2020 [facility] General Internal Hemanth, Morbid ob esity (HCC) - Encounter Medicine Dana 04/27/2020 MD Darlene 04/25/2020 Travel 04/18/2020 Hospital Pre-Admission Testing Hemanth, Morb id obesity ([facility]) Encounter Dana Colon MD 04/18/2020 Orders Only General Internal Medicine 04/18/2020 Travel 08/26/2019 [facility] Radiology [facility], Bariatric surge ry status; Encounter Darian Luciano MD Abdominal pain, LUQ; Gastroesophagea l reflux disease, esophagitis presence not specified; Pre-operative c learance 08/26/2019 Outside Orders Central Scheduling [facility], [facility] ic surgery status (Primary Dx); Darian Luciano MD Abdominal pain, LUQ; Gastroesophagea l reflux disease, esophagitis presence not specified; Pre-operative c learance 07/29/2019 Surgery Gastroenterology Maya Knowles MOTILITY MD Tian 07/29/2019 [facility] Gastroenterology Maya Knowles Encounter MD Tian 07/23/2019 Anesthesia Event Concha Charles CRNA 07/23/2019 Surgery Gastroenterology Ang, UPPER ENDOS COPY,BIOPSY Darian Luciano MD 07/23/2019 [facility] 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 Hemoglobin 11.6 11.2 - 15.7 GM/DL [facility] Hematocrit 37.2 34.1 - 44.9 % [facility] MCV 89.4 79.4 - 94.8 fL [facility] MCH 27.9 25.6 - 32.2 pg [facility] MCHC 31.2 (L) 32.2 - 35.5 GM/DL [facility] RDW 13.9 11.7 - 14.4 % [facility] Platelets 206 150 - 450 K/CU MM [facility] MPV 10.8 9.4 - 12.[address] [facility] [place] nRBC 0 0 - 0 /[address] [facility] % Neutros 81 % [facility] [place] % Lymphs 10 % [facility] % Monos 8 % [facility] % Eos 0 % [facility] % Baso 0 % [facility] # Neutros 9.33 (H) 1.56 - 6.13 K/L [facility] # Lymphs 1.19 1.18 - 3.74 K/L [facility] # Monos 0.98 (H) 0.24 - 0.36 K/L [facility] # Eos 0.00 (L) 0.04 - 0.36 K/L [facility] # Baso 0.04 0.01 - 0.08 K/L [facility] Immature Granulocytes-Relative 1 0 - 1 % C HI [facility] Specimen Blood Performing Organization Address City/State/Zipcode Phone Number [facility] [address] [place] [address] CENTER Basic metabolic panel (04/27/2020 4:47 AM CDT) Sodium 143 136 - 145 meq/L [facility] Potassium 4.1 3.5 - 5.1 meq/L [facility] Chloride 115 (H) 98 - 107 meq/L [facility] CO2 25 22 - 29 meq/L [facility] BUN 9 7 - 21 mg/dL [facility] Creatinine 0.76 0.57 - 1.25 mg/dL [facility] Glucose 109 (H) 70 - 105 mg/dL [facility] HE [facility] Calcium 8.2 (L) 8.4 - 10.2 mg/dL [facility] EGFR 83Comment: ESTIMATED GFR IS mL/min/1.73 sq m [facility] NOT ACCURATE CREATININE [facility] CLEARANCE IN PREDICTING GLOMERULAR FILTRATION RATE. ESTIMATED GFR IS NOT APPLICABLE FOR DIALYSIS PATIENTS. Specimen Blood Narrative Performed At Manager Knowledge ID - PIAYA L [facility] Performing Organization Address City/State/Zipcode Phone Number [facility] MED[facility] [address] [place] [address] CENTER ECG 12 lead (04/26/2020 8:20 PM CDT)Only the most recent of2 resultswithin the time period is included. Specimen Narrative Performed At Ventricular Rate 61 BPM GE MUSE Atrial Rate 61 BPM P-R Interval 174 ms QRS Duration 90 ms Q-T Interval 522 ms QTC Calculation(Bazett) 525 ms P [place] 36 degrees R [place] 7 degrees T [place] 5 degrees Normal sinus rhythm Prolonged QT Abnormal ECG When compared with ECG of 18-APR-2020 12 :20, Sinus rhythm has replaced Electronic atr ial pacemaker Confirmed by MD Yuan Roberto ([id number]) on 04/27 7:26:23 AM Procedure Note Interface, External Ris In - 04/27/2020 7:26 AM CDT Ventricular Rate 61 BPM Atrial Rate 61 BPM P-R Interval 174 ms QRS Duration 90 ms Q-T Interval 522 ms QTC Calculation(Bazett) 525 ms P [place] 36 degrees R [place] 7 degrees T [place] 5 degrees Normal sinus rhythm Prolonged QT Abnormal ECG When compared with ECG of 18-APR-2020 12 :20, Sinus rhythm has replaced Electronic atr ial pacemaker Confirmed by MD Yuan Roberto ([id number]) on 04/27/2020 7:26:23 AM Performing Organization Address City/[facility] Phone Number GE MUSE Tissue Exam (04/26/2020 10:59 AM CDT)Only the most recent of2 resultswithin the time period is included. Case Report Surgical Pathology Report Case: [id number] [facility] Authorizing Provider:Evelia Bhardwajected: 04/26/2020 10:59 AM [facility] MD Darlene Ordering Location: S [facility] PERIOPERATIVE Received:04/26/2020 02:14 PM SERVICES Pathologist: Lea Santillan MD Specimen:Explant, La p Gastric Band for I and D DIAGNOSIS A. GASTRIC, GASTRIC BAND, REMOVAL: [facility] - GASTRIC BAND IDENTIFIED (GROSS ONLY) [facility] Signing Pathologist Direct Phone Line: [phone] CPT Code(s) 65732 [facility] CLINICAL HISTORY Morbid obesity [facility] EALTH Other hyperlipidemia [facility] Obstructive sleep apnea Heart disease, unspecified SPECIMEN SOURCE Gastric [facility] GROSS DESCRIPTION A. Received fresh labeled wi th the patients name, medical record number and "explant" is an Allergan brand gastric band measuring 5.5 x 5.5 x 2 cm with a 13 cm in length by 0.3 cm in diameter white tu [facility] be. Also received is a circ ular peters Allergan brand Port-A-Cath measuring 3 cm in diameter and 0.9 cm in height. There is a 16.5 cm in length by 0.3 cm in diameter attached catheter. The Port-A-Cath i [facility] s inscribed with "lot number : [id number] part number: [id number] full range: 0-10 cc." A gross photograph is taken. No sections are submitted-gross only. KEVIN Sigala, PA ([facility]) MICROSCOPIC DESCRIPTION N/A [facility] Specimen Tissue - Explant Performing Organization Address City/State/Zipcode Phone Number [facility] [address] [place] [address] CENTER TRANSFUSION SERVICE REPORT - SCAN (04/19/2020 6:04 PM CDT) Narrative Performed At This result has an attachment that is no t available. Type and screen, automated (04/18/2020 12:18 PM CDT) ABO/RH AUTOMATED (BEAKER) A POSITIVE [facility] Ab Scrn NEGATIVE [facility] Specimen Blood Performing Organization Address City/[facility]/Zipcode Phone Number [facility] [address] [place] [address] Hemoglobin (04/18/2020 12:18 PM CDT) Hemoglobin 13.9 11.2 - 15.7 GM/DL [facility] Specimen Blood Narrative Performed At Manager Knowledge ID - [id number] [facility] Performing Organization Address City/[facility]/Zipcode Phone Number [facility] [address] [place] [address] CENTER BUN and Creatinine (04/18/2020 12:17 PM CDT) BUN 22 (H) 7 - 21 mg/dL [facility] Creatinine 0.85 0.57 - 1.25 mg/dL [facility] BUN/Creatinine Ratio 25.8824Comment: For a [facility] normal individual on a [facility] normal diet, the reference interval for the mass ratio ranges between 12:1 and 20:1 (BUN in mg/dL/creatinine in mg/dL) EGFR 73Comment: ESTIMATED GFR mL/min/1.73 sq m [facility] IS NOT ACCURATE [facility] CREATININE CLEARANCE IN PREDICTING GLOMERULAR FILTRATION RATE. ESTIMATED GFR IS NOT APPLICABLE FOR DIALYSIS PATIENTS. Specimen Blood Narrative Performed At Manager Knowledge ID - PIAYA L [facility] Performing Organization Address City/[facility]/Zipcode Phone Number [facility] [address] [place] [address] CENTER Electrolytes (04/18/2020 12:17 PM CDT) Sodium 137 136 - 145 meq/L [facility] Potassium 4.2 3.5 - 5.1 meq/L [facility] Chloride 103 98 - 107 meq/L [facility] CO2 26 22 - 29 meq/L [facility] Specimen Blood Narrative Performed At Manager Knowledge ID - PIAYA L [facility] Performing Organization Address City/State/Zipcode Phone Number [facility] [address] [place] [address] CENTER XR chest 2 views (08/26/2019 2:40 PM 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 Dual lead left subcla vian ICD. Lungs clear and vascularity normal. Signed: Jc Tobar MD Report Verified Date/Time:08/26/2019 15:35:48 Reading Location: [facility] Diagnostic Imagi ng Reading Room - [facility] F1 1.310.12 Procedure Note Interface, External Ris In - 08/26/2019 3:38 PM TELETYPEWRITER OPERATOR FINAL REPORT History provided: Bariatric surgery, abd ominal pain CHEST PA AND LATERAL COMPARISON STUDY: 01/01/2019 Heart size normal. Dual lead left subcla vian ICD. Lungs clear and vascularity normal. Signed: Jc Tobar MD Report Verified Date/Time: 08/26/2019 1 5:35:48 Reading Location: [facility] Diagnostic Imagi ng Reading Room - [facility] F1 1.310.12 Performing Organization Address City/State/Zipcode Phone Number GE RIS REPORT OF PROCEDURE - ENDOSCOPY URL (07/23/2019 7:31 AM CDT) Narrative Performed At This result has an attachment that is no t available. after 05/24/2019 Insurance Payer Benefit Plan / Group Subscriber ID Type Phone A ddress [employer] - MGD CARE CIGNA HMO/POS/OPEN ACCESS xxxxxxxxxxx HMO/POS Advance Directives For more information, please contact:[address] [phone] Code Status Date Activated Date Inactivated Comments Full Code 04/26/2020 5:41 AM 04/27/2020 4:02 PM This code status was determined by: Patient Full Code 07/23/2019 5:59 AM 07/23/2019 10:56 AM This code status was determined by: Patient
--- OUTSIDE RECORDS SUMMARY | 2020-05-24 23:43 | XMS REPORT | Clinical Summary ---
:1975 Author Organization [facility] Address [address] [place] [address] Care Team Providers Name Role Phone Asked, [...] Comments CERVICAL CANCER SCREENING 1997 INFLUENZA VACCINE 06/13/2020 Implants Implanted Type Area Parts Identification Technician Device Shelf Model / Identifier Expiration Serial / Date Lot Joshuaquinton Guerra - [id number] - [id number] Cardiac N/A: LAZARA LEI 01/25/2020 [id number] / Implanted: Qty: 1 on 10/28/2018 by Yogesh Contreras Jr., M D at [facility] Pacemaker N/[employer] [id number] / Generators [id number] S Lead [id number] Active Sc Sprint 55 Cm - [id number] Cardiac Pac ing N/A: [employer] CRM 07/10/2020 [id number] / Implanted: 10/28/2018 at [facility] (Quantity not on file) Manju ds or N/[employer] [id number] / Electrodes or [id number] Accessories Lead, Bipolar Active Fixation Atrial Zohaib roid Eluting 45 Cm Capsure Fix Novus System - [id number] Cardiac Pacing N/A: [employer] CRM [id number] / Implanted: 10/28/2018 at [facility] (Quantity not on file) Manju ds or N/[employer] 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
--- OUTSIDE RECORDS SUMMARY | 2020-05-24 23:45 | XMS REPORT | Summary of Care ---
:[address] [facility] [place] [address] Care Team Providers Name Role Phone ParkerVy DO Primary Care Provider Reason for Referral Radiology Services (Routine) Status Reason Specialty Diagnoses / Referred By Contact Refe rred To Contact Procedures Pending Radiology Diagnoses Bariatric surgery status Main location aware Arrive 15 min prior pt is aware of mask. no extra ppl covid screened npo after midnight Alvaro Saxena Rf Imaging Procedures FL UPPER GI W/SMALL BOWEL FOLLOW THRU Dana Munguia MD [address] [facility] [address] [facility] [place] [phone] Phone: Fax: Reason for Visit Reason Comments Post-op Follow-up Encounter Details Date Type Department Care Team Description 05/16/2020 Office Visit [facility] Dana Saxena ost-op Follow-up Medicine Ortiz Munguia MD Surgery [address] [facility] [facility] Floor; [address] [place] [address] [place] [address] [phone] Allergies Active Allergy Reactions Severity Noted Date Comments Ketorolac & Bupivacaine & Anaphylaxis High 10/28/2018 Ra sh Lido Morphine 10/28/2018 Sob SOB, vomit, low BP Toradol High 04/18/2020 documented as of this encounter (statuses as of 05/21/2020) Medications Medication Sig Dispensed Refills Start Date [...] as of this encounter (statuses as of 05/21/2020) Active Problems Problem Noted Date S/P gastric bypass 04/26/20 05/21/2020 documented as of this encounter (statuses as of 05/21/2020) Social History Tobacco Use Types Packs/Day Years [...] Assigned at Date Recorded Not on file COVID-19 Exposure Response Date Recorded In the last month, have you been in contact with No / Unsure 05/15/2020 4:08 PM CDT someone who was confirmed or suspected to have Coronavirus / COVID-19? documented as of this encounter Last Filed Vital Signs Vital Sign Reading Time Taken Comments Blood Pressure 132/96 05/16/2020 1:27 PM CDT Pulse 91 05/16/2020 1:27 PM CDT Temperature 36.9 C (98.5 F) 05/16/2020 1:27 PM CDT Respiratory Rate - - Oxygen Saturation - - Inhaled Oxygen Concentration - - Weight 89.8 kg (198 lb) 05/16/2020 1:27 PM CDT Height 157.5 cm (5' 2") 05/16/2020 1:27 PM CDT Body Mass Index 36.21 05/16/2020 1:27 PM CDT documented in this encounter Progress Notes Plasencia-Dana Li MD - 05/16/2020 1:40 PM CDT Pt seen and examined by me .I was personally involved in reviewing and conducting elements of the history, physical exam and/or medical decision making.I attest to the assessment and findings as outlined in the resident/PA note. Recommended PPI and carafate. Ordered UGI Consider endoscopy if she continues to complain of epigastric pain. [facility] BARIATRIC SURGERY POST-BARIATRIC SURGERY PROGRESS NOTE DEPARTMENT OF SURGERY [address] [facility], [address] [place] [address] Encounter Date: 05/16/2020 Pt is 3 weeks s/p robotic assisted lap band removal revision for gastric bypass. Reports she Is still fatigued and weak. She is tolerating her post-bariatric diet but reports epigastric pain with foodand liquid intake. Patient has tried warm liquids with no relief. She reports she is unable to meet fluid goal because of the pain. Denies nausea or vomiting. Not getting adequate protein and fluid intake. Making efforts to exercise regularly, walking around her house Past Medical History: Diagnosis Date Heart disease Heartburn Hypertension Migraine headache Blood pressure (!) 132/96, pulse 91, temperature 98.5 F (36.9 C), temperature source Oral, height 5' 2" (1.575 m), weight 198 lb (89.8 kg). Wt Readings from Last 3 Encounters: 05/16/20 198 lb (89.8 kg) 05/02/20 205 lb 12.8 oz (93.4 kg) 04/18/20 213 lb 6.4 oz (96.8 kg) Body mass index is 36.21 kg/m. BMI 04/18/2020 05/02/2020 05/16/2020 BODY MASS INDEX 39.03 37.64 36.21 30-day Follow-up Outcomes Review Was anticoagulation initiated for presumed/confirmed vein thrombosis/PE? NO Was an incisional hernia noted on exam?no Was an operative drain still present at 30 days?no Did the patient visit the ED within 30 days of the principal procedure?yno Was the patient treated for N/V on an outpatient basis within 30 days of the principal procedure? no Did the patient have a hospital readmission within 30 days of the principal procedure?no Did the Patient have an Intervention within the 30 day Postoperative Period?no Did the Patient have a Reoperation within the 30 day Postoperative Period?no Long-Term Follow-up Comorbidity review: Is patient on medication(s) for GERD? Yes Is patient on medication(s) for hyperlipidemia? No Is patient on medication(s) for hypertension? Yes Is patient on non-insulin medication(s) or insulin? No Is patient using CPAP? No NAD PERRLA RRR, no murmurs, rubs or gallops CTAB, no rhonchi, rales, or crackles ABDOMEN SOFT, NT/ND. No hernias noted Abdominal incisions C/D/I Encounter Diagnoses Name Primary? S/P gastric bypass 04/26/20 Yes Epigastric pain Bariatric surgery status Upper GI with SBFT Prescribed Carafate Follow up in 1 week Continue to take vitamins daily Continue medications as directed Instructed to exercise daily. Recommended to follow dietary instructions, including meal planning, restricting portion sizes, avoiding grazing and high-calorie snacking. documented in this encounter Plan of Treatment Date Type Specialty Care Team Description 05/24/2020 Ancillary Procedure Radiology 05/25/2020 Telemedicine Bariatrics Jamari Saxena MD [address] [facility] 8[address] [place], [place] [address] [phone] Name Type Priority Associated Diagnoses Order S chedule FL UPPER GI W/SMALL Imaging Routine Bariatric surgery sta tus 1 Occurrences starting BOWEL FOLLOW THRU 05/16/2020 until 11/16/2021 Health Maintenance Due Date Last Done Comments MAMMOGRAM ANNUAL 1976 TETANUS SHOT (ADULT) 1991 HIV SCREENING 1994 CERVICAL CANCER SCREENING 4 YEAR 1997 FOLLOW UP FLU VACCINE > 6 MONTHS 05/13/2020 BMI FOLLOW UP PLAN 05/02/2021 05/02/2020, 04/18/2020, 12/02/2019 documented as of this encounter Results Not on filedocumented in this encounter Visit Diagnoses Diagnosis S/P gastric bypass 04/26/20 - Primary Bariatric surgery status Epigastric pain Abdominal pain, epigastric Bariatric surgery status documented in this encounter Insurance Payer Benefit Plan / Subscriber ID Effective Dates Phone Addre ss Type Group [facility] OPEN [id number] 2018-12/31/2 [address] PPO ACCESS - [employer] [id number] [place] [id number] documented as of this encounter
--- OUTSIDE RECORDS SUMMARY | 2020-05-24 23:45 | XMS REPORT | Continuity of Care Document ---
:1975 Author Organization [facility] t Address [address] [place] [address] Dr. Thakkar [address] [place] [id number] Care Team Providers Name Role Phone Asked, Pcp Primary Care Physician Unavailable Nilda Perla MD Attending Clinician Mustapha Pate Attending Clinician Sal Perla MD Attending Clinician [phone] Devon Palma NP Attending Clinician SAL PERLA Attending Clinician Unavailable Mustapha Fry MD Attending Clinician Tian Knowles [...] Date S raúl [employer] - MGD xxxxxxxxxxx [facility] - Medical HMO/POS/OPEN Center ACCESSxxxxxxxxx xxHMO/POS Problems [...] TIA Disease Active [facility] (transient (transient 3 Shyanne kes - ischemic ischemic 00:00: Medica [...] Active Anaphylaxis [place] [facility] to -16 [facility] adverse 00:00: st reaction 00 s to drug Social History Social Habit Start Date Stop Date Quantity Comments Source History SDOH Alcohol [facility] - Std Drinks [facility] History SDOH Alcohol [facility] - Binge [facility] Sex Assigned At [facility] History SDOH Alcohol 2019-07-21 2019-07-[address] [facility] - Frequency 00:00:00 00:00:00 Medical Center Smoking Status Start Date Stop Date Source Never smoker [facility] [place] Medications Ordered Filled Start Stop Current Ordering Indication Dosage Frequency Signature Comments Components Source Medication Medication Date Date Medication? Clinician (SIG) Name Name evolocumab Yes 140mg Q14D Inject [address] (REPATHA 7-16 mg [facility] - SYRINGE) 10:06: subcutaneo Med ical 140 mg/mL 44 usly every Cent er Syrg 14 (fourteen) days . ergocalcife 2020-0 Yes [id number] Q7D Take [facility] rol 7-16 50,000 [...] 500mg Take [address] en 04-27 tablet [facility] - (TYLENOL) 00:00: 23:59 (500 [...] [facility] - 5 MG tablet 13:48: daily. [place] [id number] Center amLODIPine 2019- No 10mg QD Take [address] [facility] [address] (NORVASC) 3-24 10-09 tablet (10 Virgen es - 10 MG 00:00: 00:00 mg total) Medica l tablet 00 :00 by mouth Center daily. amLODIPine Yes 2.5mg QD Take 2.5 [place] (NORVASC) 5 1-17 mg by [facility]i mg tablet 09:52: mouth st 05 daily. evolocumab Yes 140mg Q14D Inject 140 [facility] (REPATHA 1-17 mg under Methodi SURECLICK) 09:52: [...] Source Systolic blood 2020-04-27 10:59:00 98 mm[Hg] [facility] Diastolic blood 2020-04-27 10:59:00 50 mm[Hg] [facility] Heart rate 2020-04-27 10:59:00 58 /min [facility] Body temperature 2020-04-27 10:59:00 36.83 Jessica [facility] Respiratory rate 2020-04-27 10:59:00 18 /min [facility] Oxygen saturation in 2020-04-27 10:59:00 98 /min [facility] Arterial blood by Medical Ce nter Pulse oximetry Body height 2020-04-26 06:00:00 157.5 cm [facility] Body weight Measured 2020-04-26 06:00:00 95.936 kg [facility] BMI 2020-04-26 06:00:00 38.67 kg/m2 [facility] Procedures Procedure Date / Time Performed Performing Clinician Deepti godoy ARRYTHMIA IMPLANT REPORT 2020-05-09 14:21:41 Provider, Default C [facility] - - SCAN [facility] ARRYTHMIA IMPLANT REPORT 2020-04-28 10:40:58 Provider, Default C [facility] - - [facility] RHYTHM STRIP - SCAN 2020-04-28 10:40:57 Provider, Default [facility] POCT-GLUCOSE METER 2020-04-27 11:03:[address] [facility] POCT-GLUCOSE METER 2020-04-27 05:33:[address] [facility] BASIC METABOLIC PANEL 2020-04-27 04:47:00 Katy Waite [address] CBC W/PLT COUNT & AUTO 2020-04-27 04:47:00 Katy Waite [facility] POCT-GLUCOSE METER 2020-04-26 23:56:[address] [facility] ECG 12-LEAD 2020-04-26 20:20:42 Unknown, Hl7 Doctor [facility] POCT-GLUCOSE METER 2020-04-26 17:33:[address] [facility] TISSUE EXAM 2020-04-26 10:59:[address] [facility] LAPAROSCOPY,REMOVAL 2020-04-26 08:00:00 Dana Perla [facility] - GASTRIC BAND [facility] ROBOTIC 2020-04-26 08:00:00 Dana Perla [facility] - LAPAROSCOPY,ESOPHAGOJEJU [facility] NOSTOMY ROBOTIC 2020-04-26 08:00:00 Dana Perla [facility] - LAPAROSCOPY,HERNIORRHAPH [facility] Y HIATAL UPPER ENDOSCOPY 2020-04-26 08:00:[address] [facility] TRANSFUSION SERVICE 2020-04-19 18:04:56 Provider, Default [facility] - REPORT [facility] ECG 12-LEAD 2020-04-18 12:20:00 Unknown, Hl7 Doctor [facility] HEMOGLOBIN 2020-04-18 12:18:00 Fortunato Palma [facility] TYPE AND SCREEN, 2020-04-18 12:18:00 [facility] BUN AND CREATININE 2020-04-18 12:17:00 Fortunato Palma [facility] - W/RATIO [facility] ELECTROLYTE PANEL 2020-04-18 12:17:00 Fortunato Palma [facility] S t [facility] XR CHEST 2 VIEWS 2019-08-26 14:40:00 [facility] 2019-07-29 15:00:00 Maya Knowles [facility] REPORT OF PROCEDURE - 2019-07-23 07:31:[address] [facility] ENDOSCOPY [facility] TISSUE EXAM 2019-07-23 07:22:00 Darian Fry [facility] UPPER ENDOSCOPY,BIOPSY 2019-07-23 07:00:00 [facility] Planned Activity Planned Date Details Comments Source Future Scheduled 2020-06-13 INFLUENZA VACCINE [facility] 00:00:00 [code = INFLUENZA VACCINE] Future Scheduled 1997 Screening for [facility] 00:00:00 malignant neoplasm of cervix (procedure) [code = 606608058] Encounters Start End Encounter Admission Attending Care Care Encounter Source Date/Time Date/Time Type Type Clinicians Facility Department ID 2020-05-16 2020-05-16 Office Allyn BARAJAS [id number] 13:19:09 15:20:25 Visit erika Dana AMBULATOR 350.1.13.21 G Y 0.2.7.2.686 [id number] 800 2020-05-02 2020-05-02 Office EMILY Queen [id number] 13:56:12 14:26:12 Visit Kandis A AMBULATOR 350.1.13.21 Y 0.2.7.2.686 [id number] 800 2020-04-18 2020-04-18 Office Allyn Kenia [id number] 09:19:54 15:17:15 Visit Dana james AMBULATOR 350.1.13.21 G Y 0.2.7.2.686 [id number] 800 2019-12-02 2019-12-02 Office Allyn BCKenia 1.2.840.114 [id number] 10:01:30 12:40:44 Visit Dana james AMBULATOR 350.1.13.21 G Y 0.2.7.2.686 [id number] 800 2019-07-16 2019-07-16 Office CandidaEMILY 1.2.840.114 [id number] 13:41:03 15:14:00 Visit [place] AMBULATOR 350.1.13.21 Y 0.2.7.2.686 [id number] 800 2019-06-16 2019-06-16 Office EMILY Tirado [id number] 10:26:53 13:08:19 Visit [place] AMBULATOR 350.1.13.21 Y 0.2.7.2.686 [id number] 2019-05-12 2019-05-12 Office KaceyEMILY means 1.2.840.114 [id number] 12:57:08 15:12:24 Visit Darian AMBULATOR 350.1.13.21 Y 0.2.7.2.686 [id number] Results Test Description Test Time Test Comments Results Result Comments Source POC-Glucose meter 2020-04-27 11:14:00 Test Item Value Reference Range Interpretation Comme nts POC-Glucose Meter (test code = 86 mg/dL 70-110 : TESTED AT [facility] [address] [facility] 1538) [facility], [facility] 30: Clinical Engineering Director/Techni ashish ID = [id number] for PALMIRA CHUN Lab Interpretation (test code = Normal 41254-9) [facility] [id number] 11:14:00 Test Item Value Reference Range Interpretation Comments POC-GLUCOSE METER 86 mg/dL 70-110 : TESTED A T [facility] 67[address] (BEAKER) (test code = [place], 1538) [address]: Clinical Engineering Director/Techni ashish ID = [id number] for SABAS CHAVEZ ECG 12 [id number] 07:26:27Interface, External Ris In - 04/27/2020 7:26 AM CDTVentricular Rate 61 BPMAtrial Rate 61 BPMP-R Interval 174 msQRS Duration 90 msQ-T Interval 522 msQTC Calculation(Bazett) 525 msP Blackwell 36 degreesR Blackwell 7 degreesT Blackwell 5 degreesNormal sinus rhythmProlonged QTAbnormal ECGWhen compared with ECG of 18-APR-2020 12:20,Sinus rhythm has replaced Electronic atrial pacemakerConfirmed by MD Yuan Roberto ([id number]) on 04/27/2020 7:26:23 AM [facility] metabolic [id number] 05:47:00 Test Item Value Reference Range Interpretation Comments Sodium (test code = 143 meq/L 167-995 4771-2) Potassium (test code = 4.1 meq/L 3.5-5.1 2823-3) Chloride (test code = 115 meq/L 98-107 H 2075-0) CO2 (test code = 25 meq/L 22-29 2028-9) BUN (test code = 9 mg/dL 7-21 3094-0) Creatinine (test code 0.76 mg/dL 0.57-1.25 = 2160-0) Glucose (test code = 109 mg/dL 70-105 H 2345-7) Calcium (test code = 8.2 mg/dL 8.4-10.2 L 12985-4) EGFR (test code = 83 mL/min/1.73 [place] [address]-2) NOT ACCURATE CREATININE CLEARANCE IN PREDICTING GLOMERULAR FILTRATION RATE . ESTIMATED GFR I S NOT APPLICABLE FOR DIALYSIS PATIENTS. MANE (test code = MANE) Clinical Engineering Director ID - PIAYA L Lab Interpretation Abnormal (test code = 98069-9) [facility] METABOLIC [id number] 05:47:00 Test Item Value Reference Range Interpretation Comments SODIUM (BEAKER) 143 meq/L 136-145 (test code = 381) POTASSIUM (BEAKER) 4.1 meq/L 3.5-5.1 (test code = 379) CHLORIDE (BEAKER) 115 meq/L 98-107 H (test code = 382) CO2 (BEAKER) (test 25 meq/L 22-29 code = 355) BLOOD UREA NITROGEN 9 mg/dL 7-21 (BEAKER) (test code = 354) [...] S NOT APPLICABLE FOR DIALYSIS PATIEN TS. Clinical Engineering Director ID - PIAYA LPOCT-GLUCOSE [id number] 05:44:00 Test Item Value Reference Range Interpretation Comments POC-GLUCOSE METER 97 mg/dL 70-110 : TESTED A T [facility] [address] (BEAKER) (test code = GRETASORIN Hall [facility], 1538) [address]: Clinical Engineering Director/Techni ashish ID = [id number] for BRANDEE ERS, POLO CBC with platelet count + automated [id number] 05:31:00 Test Item Value Reference Range Interpretation [...] 450 K/CU MM MPV (test code = 25110-8) 10.8 fL 9.4-12.3 nRBC (test code = [...] 2801) Lab Interpretation (test code = Abnormal 59263-6) [facility] W/PLT COUNT & AUTO [id number] 05:31:00 Test Item Value Reference Range Interpretation [...] PERCENT (BEAKER) (test code = 2801) POCT-GLUCOSE [id number] 00:07:00 Test Item Value Reference Range Interpretation Comments POC-GLUCOSE METER 150 mg/dL 70-110 H : TESTED A T [facility] 6720 (BEAKER) (test code = [facility], 1538) [address]: Clinical Engineering Director/Techni ashish ID = [id number] for POLO CHAVEZ POCT-GLUCOSE [id number] 17:50:00 Test Item Value Reference Range Interpretation Comments POC-GLUCOSE METER 161 mg/dL 70-110 H : TESTED A T [facility] 6720 (BEAKER) (test code = [facility], 1538) [address]: Clinical Engineering Director/Techni ashish ID = [id number] for erinRamirez jamil Tissue [id number] 16:24:00 Test Item Value Reference Range Interpretation Comments Case Report (test code Surgical Pathology = 104) Report Case: [id number] Authorizing Provider: Dana Peral Collected: 04/26/2020 10:59 AM MD Sal Ordering Location: [facility] Received: 04/26/2020 02:14 PM SERVICES Pathologist: Lea Santillan MD Specimen: Explant, Lap Gastric Band for I and D DIAGNOSIS (test code = e3vnwTFrPXOkk0soJDCkgGU 3220) uZzEwMzNcZnRuYmpcdWMxIH voviRwZBvoq5IfF5GwBpHqG FxhbnNpXGRlZmxhbmcxMDMz QWP1ezKxDANeOXorMFMvOAt lIm3slCBlsGxxTdZcTMNtx7 ucuvUMeeqhqYu8h9ulUZFzH uM0mTPgAIhnL3axpqYwaTMv CNHeYWy8oX75PFJfpY1uqZW sIDtccmVkMFxncmVlbjBcYm u5NWVwX4hnUUElSSMbM8XsS B8mLGCwYdf4LGU9GQN6bVno w5T0rWAtsOWeqVceVbQmLqD xCWSPe3XiDZp7sEftH6MlLT CiPtB8sMFjXAXhOQsxTFGuK KMkoqN9aS70YEahzhK9aDYw h7Fkl73xf372xZ2buXWvIOB 0QOLbOBYgwBCbFKCuOMU4KE VblIJdK0m6YnWpxITmE0U8M qTzdJXlB7Z9MbPtcMFaJ0R3 CrGelXBvNJEefNXoEh0blVV caIDjck9oub17YFS5i6NfcF tfAGF0YRA7GeXkBz7dbTVvP VCfBL8iDhEytHSdSXHshj07 bIcrMEokusXzsS7bWcVnSBD jhHHyQGPwJO2bkAVsMLVwdW 5ucmxjXHBnYnJkcmhlYWRcc MkzwpYfXj8xqZyxOQU2AEyf G0hlvI0sOsD7SBitU7isoK8 pHJk5BEkcvSB4OTYraS6mDX 9pjxczq5hnWsHwJN2zsijtf 7leCtNvCT6zeby1n9nnJrRp HC3vilxll6qgIxKaTKroQCG jxrrrZHRdc9CrglbtXSQvo7 QuV4SbiDzdH15faPadM81xS SGuyWuwwG3xvEhvqC2pDdUu ZnMyMFxxbFxwbGFpblxmMFx mczIwXHBsYWluXGYxXGZzMj YdIG6uE0OQDRUIRwevG3UFX WNQXkENYV7BIXWRAX0NDaHW OlxwYXIgICAgICAgICAgIC0 mF6PFCMLCOtBYIX9XXZvOWP 1CRTOMFYElDHyEM9MYAF0GM FkpXHBhclxwYXJccGFyfXtc msExERckf1JnIJhxDSVcCZ2 pjQrxBJJfTM6yDIChB7uqoF 3jgtc0LwDrXNWlWmU9UMOvq pL8Wyg5KLOpMRcuf1urg8Tb EFYqGUs2hRbmOdCiCYPtg3m zcyBcZmNoYXJzZXQwIEFyaW KkF206x2sah0dxjxKyiQV3R TUuZBD3AMitiaWguzM7WDid kNPdUaO2JXxarvRbQIjowiO wnmAzIsm7JREwM029YEV8wB fqp7hzPBA2GBKuBGWjCtSuF z7idULeI993WGAwVBBUINBk cPq6NJAvtdXhbqTcgTNKo53 6U918o6mlXNQpllUldOcDlf wwf8unU464RVHjtBOknsBoV qIcRLOyiDPmuSN8BZLyRT0w euwhLIrwLYweLBSgstM0YQF ytVLiT6MtVOYaDV1ffulqWZ Q2WEdoKXFjQII2HzKaDHNrc 5Hszpz1YuQzkh0ppf08FMT5 u1TagZubGEJ9YPS5BhKcSw0 pdTYgOTJrQN0rVzGyfTUbGP Jjkb46iMiaBMyqJPV9HBIsa eSdn8Sgi6ioCyAqweEgR5et Z1UtILAyARIwJMJtEhFynhY ii7Cik1XujRKjbVk5u2yfZN HnWFAkjLdps3vhLFE5CXKrj YYjB8ozlQ4oIZMtOX1oysxw s2gxQHouAPvnHKYjjTJ5esP 2HTGqdGZxN9RugH4hRXNqEB ziZVVqzit6YySxNn9pqLBlq TcyMFxzYmtwYWdlXHBnbmNv bnRccGduZGVjXHBsYWluXHB sYWluXGYwXGZzMjRccWxcbG FuZzEwMzNcaGljaFxmMVxkY gIyRWRcNBcgS0esYuRdHnLx Eab3QOTivEEpWRFqBgs6MDN unAXiVHZZkEyvpF9tRZUqpY ascW7pbBP5BDJvhqMooAKJt X6iZVILoL6eNeG4LuLgWoK1 BGD3TKKqeHKmrD3= CPT Code(s) (test code d8xopTLbXVQghMRdYdHtKKG = 3357) zMMFrv7suODHmpZHkZiSmYb NcZnRuYmpcdWMxXGRlZmYwe 1wsv556oJUpb4vpYTPgQgQ2 zRJpUDKsrWZxR364i9vaj3g ufcHbqWN8ZSVkVJC7JMxnke JnyjE9ZZjajGXzXcC6GKxea kExKPotpuKriwDcWnd0YSPb O436YBR8qLmib6xmYUW4XMO qLKEqCoJgLz9cvXTzB996FU PwESULNIKksWw9KCEjhpBwm uCvySTCu404N783a1hyNDCx hdBpzFsShzcaw1yrA397ILO hcGVydzEyMjQwXHBhcGVyaD H7AQKyMN5vfwazDhFfGU1mx fxcElHuRS1fxwq4YvHiKX0w cmdiNzIwXGhlYWRlcnkwXGZ rj8LhpulyKR4iA7Ryp6A7mO 9maXRcZGVmdGFiNzIwXGZvc i2jnSTgSMupf9RvIQD7gyN7 vAQrgOUvTKSjGS33Mbfhl8Q dGxggKFS8EHTktaRtc0Tbo0 kzHdNyraSqO1nzM2SmMRKtH XWsYZJgGyImnhRod6Bbe1Nt sBGbbDb4n0meNMVmVGHvxUk ul3qkRBQ9AOGwF5L3sZBga8 toEBcwDFWgqVN9cjseFNcmP ZDansT9jcrdWLhoFBAsbMH3 anrdKEfySWNnWvG4sufxRBe wJJYjJNY0JIzvn101BPD9SG xzYmtwYWdlXHBnbmNvbnRcc GduZGVjXHBsYWluXHBsYWlu XGYwXGZzMjRccWxccGxhaW5 uQkCoFjUxUGdzFF1mJLAjE7 rrlYOgCNMdIDOeI6ksZlFpl U0vxNdjCIegyuShQVt4QoUm XHBhcn0= CLINICAL HISTORY (test s0ifwGLaZNPnnBPcBhQyFFZ code = 3356) gZPUic3gyVRIpqIOyAkOvCv NcZnRuYmpcdWMxXGRlZmYwe 0vps400aPKsg6iaEJXaUlH6 kSShGBJpjSKbI982NZHqDPy ax1teu1IsDOOpwVMxo8H6TE VZbygbyVw3xOqsY15de3R0I fxiE1cgCGUoMZPlT0PhPE5j AKEyHfb8FXO8OLM8TXElXGC uB8CoDX8dHWRuzSOpXEw2r7 hnkBoiRIPvBAR0o0svNEnai sWbBQ1wpr0qrDa9j1ddwzXp CNDaKBBjjQGAERYyX7AjrOb fBg8xfKa2lKscKmmzVWS8Ex o6FW4hby84neo2bZrtIVZci oxyArD4ESorCHYozxqtSPb7 MFxtYXJnbDcyMFxtYXJncjc yMFxtYXJndDcyMFxtYXJnYj gpNOqdUHBhXPG9GQobp221Z AJ9JBcaj4yla9senISfTnj1 JQOwCaQtPitnBXtnh4Cuq8x bSNKdgg3mOHP2cUDhvNhug8 M8mFSzCRZxyTQuzvQfVIRfH zE2EFyjAS3kqo10PRNqKYM4 ci5bvAFsxOeepyPgfKKeXWf cW4KdRUOpw800IEOqD3ZlIM Xhd8V7inMfClYpZRMjrGX6p gC0RSRrDSt9cEZvukB5eqUr pUGjM4witW32PzGxhAOcQ5L lfT52IfCwlXUpQ4PvsL45Wx MrrGVuW3LhtM28VoQkzESlB ZEmzUJaJg0tcOZulCUln7Jk wTSrFJevL65po045CIRqqdK kT1iqqRVyjmuzmXKxygzsIM afarP3IYs4ebNnqaakgIsho GFpblxmMVxmczIwXGxhbmcx OVFlJIdxP4ndWkHjUTOmhAr vKOdaz9PuRBNcKQAcCxVhFT 4gFwixGP5wMVXmdRlsvNloR SBPdGhlciBoeXBlcmxpcGlk BZ3cRBJdsPbeUKNXNfS2hkQ onLr8GWDfuZAezDWdhC0hBP BcbGluZSBIZWFydCBkaXNlY QSnIVT4rtHgYAJdBpxgQPQe cGFyfQ== SPECIMEN SOURCE (test n0aipCMaCDObtDJxFnAyXXH code = 3377) iWGJhn8adSCHuvPHwLyVeYj NcZnRuYmpcdWMxXGRlZmYwe 2ebw390aDKaq3geHTYwCwC7 tWMkTSZicYUiT403a5hgo4q lfpMavSU0VQCsTQL6IHgtya EbrkI1TByopZPaJnE7EYrme zLdKBfyahEwmcFzDya6HUAe F139AIZ8jOotv5byFGV5APX uPHKbIdJqSs7toAOiF616RG PrUAMRQLGswWm9JLBysbTvc vVjhFDIj801J056d0laMHSw wuYnwRhDpqfdg3ogJ248GFD hcGVydzEyMjQwXHBhcGVyaD Q6PWCdJM9twuytDvKbTL4af qjsAtWgRM6emsh9BjPoSC4r cmdiNzIwXGhlYWRlcnkwXGZ jz6BtjvnuFB2xF5Tkz4I0uX 9maXRcZGVmdGFiNzIwXGZvc n5kcOKfDUfnl1RmWGE3bvO1 kYPmmDQmJJKlOB10Mbwnh7D iGwppXCJ7RNPsivAwk6Yyk8 mgHpZehgOzR6hmP8TrEFXdR UPgKYJwNxTldhRhl0Alk9Dk nKSwzNd8g2ibJAXjLRDasXv ge0toQFA8OKHjJ5K0rVMoi5 wmTLjxQRRhlNH2wjnaKOhbH VAukvB7codcKZmvKJFobQE9 zgjqTQfsKVCnCuQ9yomzRIi iNIVfKZW2VOwep976MNL7ST xzYmtwYWdlXHBnbmNvbnRcc GduZGVjXHBsYWluXHBsYWlu XGYwXGZzMjRccWxccGxhaW5 jWmJkKzHsUOhjFK1eHCArZ3 fidJYdKQVgSLOmH9xuNhZsv J9vwEphYPzagjDsBEbxc5In aWNccGFyfQ== GROSS DESCRIPTION y2ighOPeDCRahYIhOlSpXXA (test code = 3366) dZYJbi3dgIOOrjQAuVwUsLb NcZnRuYmpcdWMxXGRlZmYwe 0soq832wMRek4cvMQPoKsH9 cICaZKEmuVBrH972g6vum2c frnCfxJC8ZSUxPOO6CLpeme QgchG3SGijsZXoMtV8DTxga vQqRWoiuqXvtyMnQvr6AHFr W100ZSM1aOvsi7pzWUS4GRH lDCRoKjKrVu8blKHpL526OR SbKYIWHMYamXv3AZPmzqTuc dVsyNZPh134W153p5tyMPKe zsYhjMvYzdhwb1niK953EKP hcGVydzEyMjQwXHBhcGVyaD T1XJTiGJ6tkclfYzYvZI5xn dahHhTlPX0jlkp8WnHiVQ4q cmdiNzIwXGhlYWRlcnkwXGZ fv1KaxklhKP4kS9Jvm8U8jN 9maXRcZGVmdGFiNzIwXGZvc t8llRKkJCgmz9BrERB5vaC1 zQNjySPsBHExCN51Syoql6N aYcwjUQY4RISghmAoq9Wcu6 ioAnJrfsVjL4svS5TcOKNvY QVqKEPpByNesqVhh5Vab3Sl eRIktOb3s3yzRSEuNNAcbJl il3juUYA7VMNrH8O7vICcc7 afJNkhYPQrzKW0okpkKNdnE QCfugF4lmprCRgoIFAygGH9 lxbjMDcbBEYmYwF6mnekRDl mSVFeXNJ6UUdfh887CIZ9HN xzYmtwYWdlXHBnbmNvbnRcc GduZGVjXHBsYWluXHBsYWlu XGYwXGZzMjRccWxccGxhaW5 wRjOzBuVlTUdkGM1wLWSwB9 mmwWGxQYQwQEQgJ0xhWqGha F2apYxvLOgsfxBqVDPwDDTw Y1HamvXrPLOdPUCcWSvrAiE uVOGdd5r4pXZ1mEOnkKX3qG PadUdhAxSfCQ2xaKWxHY1wU HpyYFowlsLsh4EzVE21rDOl qdVuusLcSwI4gVggriIdHZq rXMSyUHMtxUYsX9LiVHBpVV 2qWHhzc1BmoBAuXgZoWIYrD HRbjXWvfacqFP78SHiiKD51 FBqiUsHhzSH8gJMcIVJzAEE hP24pqG2ccLUfY4SoFAQ4BW AuMyBjbSBpbiBkaWFtZXRlc aB3dZl8CMF4sMNiAcPgRSdw byByZWNlaXZlZCBpcyBhIGN tcvL7fFFrZXPpzbCCeHlpmu gocjFpxwFsDFLRa4P0ZKXyD 4E2xNXfQNGbvJYwgcbxLiYd bSBpbiBkaWFtZXRlciBhbmQ uFG92ZUFzCXdeDLbnyHhwyA 4gIFRoZXJlIGlzIGEgMTYuN MNzuNKjqmTpGZ1vmZzrEzla ZJ7tOTFwSNgoJXOlWR7pbAK zUZH4aXCfpURoAXSbeJqevT TkAtBfMDljYXNejnZwUZ1EW YDdPJrfZFkwa7TceVRuZDO0 mAZyVWIrn6RpfeJkHjVnNbC dK3tFSbixAmCjSOR8AB47uS RjzobtQuD9EY9oVbTqsEwhZ HJhbmdlOiAwLTEwIGNjLiIg DTRkR7Sdh2CjlClewZ3xpmK zsCOmxiQ9GObzlo1fHX9cMB OdF8Sbs58wOGWvDCPfmNIqu NL7GCFzY9Nuk3Iru92raV5j eAXbVNVzqqUVxDCrn1AbNJo yYXVuLCBNSFMsIFBBIChBU0 NQKVxwYXJccGFyXHBhcn0= MICROSCOPIC g9ftdQJoPJQvaOHvZfQtJJU DESCRIPTION (test code kICDgd4jyNQPfoPMgNfPtAl = 3371) NcZnRuYmpcdWMxXGRlZmYwe 9lar970uWJil4qaTYGsJpH5 bKGkAYFuxILfH509u4koi3i soeUgvGL0BSCdPDV8TEcmmb SyexI4EOyukXCdQcM5IWabp qAhVOlmfyPzaxDuQmz5DYTn W595TUV7pDvkr1ghKLK4OZM hFJOkEsEtZn7vuTArX268JR IiVRMGSGMakGk7IXVpjzNgd uWleCZFk208F773t4gdPKDr zhUlxErGqmvpk4rpM532YXY hcGVydzEyMjQwXHBhcGVyaD P3QDFqNH2qsiamOrGdQC6ol mxyHpBbKF0qwvq5EfUlDM6a cmdiNzIwXGhlYWRlcnkwXGZ cu7JtnlrsZE5nY5Ycy1T9yA 9maXRcZGVmdGFiNzIwXGZvc h5ulQMyHSeuf2DsDQK9juE1 vWBzmPYjMOZkKZ59Xssfj8F eXffjPNR2ZIOsaiWla4Nmh9 tvTjJiupFvP9htP0NmMHYhD YFyQQHaReIfxbKwt5Vrw0Jy aNUeyWc9n9frRYCtPMXeeGc rv5wbWBI9GVKxN5W8uXDuk9 crYYkfJKVysKA2qtmwWFjoX VDvcjV3tenjYJbkWQAkpXS5 qmdyGEfqYIMwKjI7aqqzJWa bHFDiCNL5JQkuy101GYK9BN xzYmtwYWdlXHBnbmNvbnRcc GduZGVjXHBsYWluXHBsYWlu XGYwXGZzMjRccWxccGxhaW5 dZuGmXkMxNXtwNH9tCJAjJ0 lmyLQhASCaRJJoO3sfEvGug Z6cjTycRSdyjwIfWP4fJCjj YXJ9 [facility] CampusTISSUE [id number] 16:24:00Surgical Pathology Report Case: [id number] Authorizing Provider: Dana Perla Collected: 04/26/2020 10:59 AM MD Sal OrderingLocation[facility] Received: 04/26/2020 02:14 PM SERVICES Pathologist: Lea Santillan MD Specimen: Explant, Lap Gastric Band for I and D A. GASTRIC, GASTRIC BAND, REMOVAL: - GASTRIC BAND IDENTIFIED (GROSS ONLY) Signing Pathologist Direct Phone Line: [phone] signed by Lea Santillan MD on 04/26/2020 at 4:24 [id number] hyperlipidemia Obstructive sleep apnea Heart disease, [...] The Port-A-Cath is inscribed with "lot number: [id number] part number: [id number] full range: 0-10 cc." A gross photograph is taken. No sections are submitted-gross only.KEVIN Sigala, PA (ASCP)N/AType and screen, [id number] 13:43:00 Test Item Value Reference Range Interpretation Comments ABO/RH AUTOMATED (BEAKER) (test A POSITIVE code = 2260) Ab Scrn (test code = 890-4) NEGATIVE [facility] CampusElectrolytes2020-07-07 12:53:00 Test Item Value Reference Range Interpretation Comments Sodium (test code = 137 meq/L 081-229 6143-2) Potassium (test code = 4.2 meq/L 3.5-5.1 2823-3) Chloride (test code = 103 meq/L 98-107 2075-0) CO2 (test code = 8-9) 26 meq/L 22-29 MANE (test code = MANE) Clinical Engineering Director ID - PIAYA L Lab Interpretation (test Normal code = 91121-3) [facility] CampusBUN and [id number] 12:53:00 Test Item Value Reference Range Interpretation [...] mL/min/1.73 [place] [address]-3) NOT ACCURATE CREATININE CLEARANCE IN PREDICTING GLOMERULAR FILTRATION RATE . ESTIMATED GFR I S NOT APPLICABLE FOR DIALYSIS PATIENTS. MANE (test code = MANE) Clinical Engineering Director ID - PIAYA L Lab Interpretation Abnormal (test code = 06605-2) [facility] CampusELECTROLYTES2020-07-07 12:53:00 Test Item Value Reference Range Interpretation Comments SODIUM (BEAKER) (test code = 381) 137 meq/L 136-145 POTASSIUM (BEAKER) (test code = 4.2 meq/L 3.5-5.1 379) CHLORIDE (BEAKER) (test code = 382) 103 meq/L 98-107 CO2 (BEAKER) (test code = 355) 26 meq/L 22-29 Clinical Engineering Director ID - GARTH LBUN AND CREATININE W/[id number] 12:53:00 Test Item Value Reference Range Interpretation [...] S NOT APPLICABLE FOR DIALYSIS PATIEN TS. Clinical Engineering Director ID - GARTH [id number] 12:36:00 Test Item Value Reference Range Interpretation Comments Hemoglobin (test code = 13.9 11.2- 15.7 GM/DL 786-4) MANE (test code = MANE) Clinical Engineering Director ID - [id number] Lab Interpretation (test Normal code = 40766-4) [facility] CampusHEMOGLOBIN2020-07-07 12:36:00 Test Item Value Reference Range Interpretation Comments HEMOGLOBIN (BEAKER) (test code = 13.9 GM/DL 11.2-15.7 410) Clinical Engineering Director ID - [id number], CHEST, 2 [id number] 15:35:00Reason for Exam:- >bariatric surgery status; abdominal pain,LUQ, Gastroesophageal reflux disease,esophagitis presence not specificied, pre-operative clearanceFINAL REPORT History provided: Bariatric surgery, abdominal pain CHEST PA ANDLATERAL COMPARISON STUDY: 01/01/2019 Heart size normal. Dual lead left subclavian ICD. Lungs clear and vascularity normal. Signed: Jc Tobar MDReport Verified Date/Time: 08/26/2019 15:35:48 Reading Location: [facility] Diagnostic Imaging Reading Room - [facility] 1.310.12 XR chest 2 [id number] 15:35:00 Interface, External Ris In - 08/26/2019 3:38 PM CSTFINAL REPORT History provided: Bariatric surgery, abdominal pain CHEST PA AND LATERAL COMPARISON STUDY: 01/01/2019 Heart size normal. Dual lead left subclavian ICD. Lungs clear and vascularity normal. Signed: Jc Tobar MDReport Verified Date/Time: 08/26/2019 15:35:48 Reading Location: [facility] Diagnostic Imaging Reading Room -[facility] F1 1.310.12 [facility] [id number] 09:50:00 Surgical Pathology Report Case: [id number] Authorizing Provider: Darian Fry MD Collected: 07/23/2019 0722 Ordering Location: [facility] Endoscopy Received: 07/23/2019 1333 Services Pathologist: [...] DYSPLASIA, MALIGNANCY Signing Pathologist Direct Phone Line: [phone] signed by Lea Santillan MD on 07/27/2019 at 9:50 [id number]. Biopsy gastric, description rule out H. Pylori. [...] evaluated Immunohistochemistry technical testing was performed at [facility], Pathology Laboratory where it was developed and [...] to perform high complexity clinical laboratory testing.HEMOGLOBIN [id number] 12:55:00 Test Item Value Reference Range Interpretation Comments HEMOGLOBIN A1C (BEAKER) (test code = 4.8 % 4.3-6.1 368) LIPID [id number] 08:01:00 Test Item Value Reference Range Interpretation [...] 130-159 High 160-189 Very High >=190COMPREHENSIVE METABOLIC [id number] 08:01:00 Test Item Value Reference Range Interpretation [...] FOR DIALYSIS PATIEN TS. TSH/FREE T4 IF [id number] 06:11:00 Test Item Value Reference Range Interpretation Comments THYROID STIMULATING HORMONE 2.58 uIU/mL 0.35-4.94 (BEAKER) (test code = 772) VITAMIN B12 AND [id number] 06:11:00 Test Item Value Reference Range Interpretation [...] 0-0 (BEAKER) (test code = 413) URINALYSIS [id number] 02:49:00 Test Item Value Reference Range Interpretation Comments RBC UA (BEAKER) (test code = 519) < /HPF WBC UA (BEAKER) (test code = 520) 1 /HPF MUCUS (BEAKER) (test code = 1574) Many SQUAMOUS EPITHELIAL (BEAKER) (test 4 /HPF code = 516) URINALYSIS WITH MICROSCOPIC IF [id number] 02:46:00 Test Item Value Reference Range Interpretation [...] pg/mL 0-100 (test code = 700) TROPONIN [id number] 15:40:00 Test Item Value Reference Range Interpretation [...] acute neurological disease, and persistent tachyarrhythmia.BASIC METABOLIC [id number] 15:39:00 Test Item Value Reference Range Interpretation [...] m DATA TO CALCULA TE ESTIMATED GFR. [id number] 15:33:00 Test Item Value Reference Range Interpretation Comments MAGNESIUM (BEAKER) (test code = 2.0 mg/dL 1.6-2.6 627) RAD, CHEST, 1 VIEW, NON [id number] 15:29:00Reason for exam:->chest painIs the patient ?->UnknownFINAL REPORT TECHNIQUE: Frontal chest radiograph dated 01/01/2019. CLINICAL HISTORY: Chest pain COMPARISON STUDY: None IMPRESSION:Left-sided, dual-chamber defibrillator is in place. No pleural effusion or pneumothorax. Cardiomediastinal silhouette is normal in size. No pulmonaryedema. No fracture. Signed: Bg Zamudioeport Verified Date/Time: 01/01/2019 15:29:08 Reading Location: [facility] Radiology Reading Room [id number] 15:23:00 Test Item Value Reference Range Interpretation [...] for patients with mechanical heart valves. SCREEN, [id number] 15:23:00 Test Item Value Reference Range Interpretation Comments TEST URINE (BEAKER) (test Negative code = 583) CBC W/PLT COUNT & AUTO [id number] 15:15:00 Test Item Value Reference Range Interpretation [...] (BEAKER) (test code = 2801) CT, BRAIN/STROKE [id number] 14:33:00Reason for exam:->NUMBNESSReason for exam:->HEADACHEIs the patient [...] recommended for further evaluation. Signed: Latisha Youssef MDRch[facility]itomercy [facility] Verified Date/Time: 01/01/2019 14:33:00 Reading Location: [facility] Radiology Reading Room
[2020-05-25 00:41] LABS: Absolute Lymphocytes (CBC) 1.8 K/uL (0.7-4.9); Basophils % 0.5 % (0-1.3); Lymphocytes % 26.6 % (15.3-44.8); RBC Red Blood Cell Count 4.86 M/uL (3.86-4.86)
[2020-05-25 00:44] LABS: Protime INR 1.14
[2020-05-25 01:11] LABS: ALT/SGPT 53 U/L (12-78); AST/SGOT 53 U/L (15-37); Albumin 3.9 g/dL (3.4-5.0); Alkaline Phosphatase 144 U/L (45-117); BUN Blood Urea Nitrogen 19 mg/dL (7-18); Bicarbonate 22 mmol/L (21-32); Bilirubin Direct 0.2 mg/dL (0-0.2); Bilirubin Total 0.6 mg/dL (0.2-1.0); Glucose Level 83 mg/dL (74-106); Magnesium 2.1 mg/dL (1.8-2.4); NT PRO-BNP 97 pg/mL (<125); Potassium 3.2 mmol/L (3.5-5.1); Protein, Total 8.4 g/dL (6.4-8.2); Sodium Level 139 mmol/L (136-145); Troponin (Emerg Dept Use Only) < 0.02 ng/mL (0.0-0.045)
--- NOTE | 2020-05-25 01:29 | EDPHYS ---
Physician Documentation [facility] Name: Vanessa Gonzalez Age: 44 yrs Sex: Female : 1975 Arrival Date: 05/24/2020 Time: 23:45 Bed 4 Private MD: Vy Parker ED Physician Shimon Arenas HPI: 05/25 01:35 This 44 yrs old Female presents to ER via Ambulatory with complaints of tw4 Pacemaker problem, Cough, Dizziness. 01:35 The patient presents with a history of heart racing. Context: The symptoms occur at tw4 rest. Onset: The symptoms/episode began/occurred today. Duration: The patient or guardian reports a single episode. Modifying factors: The symptoms are aggravated by nothing. The symptoms are alleviated by nothing. Associated signs and symptoms: The patient has no apparent associated signs or symptoms. The patient has not experienced similar symptoms in the past. Historical: - Allergies: 00:45 Ketorolac; ea 00:45 Morphine; ea - Home Meds: 00:45 Repatha Syringe 140 mg/mL subcutaneous syrg 1 mL every 2 wks [Active]; Xanax 0.5 mg ea Oral tab 1 tab daily [Active]; Protonix 40 mg Oral TbEC once daily [Active]; Bystolic 5 mg Oral tab 1 tab once daily [Active]; amlodipine 2.5 mg tab 1 tab once daily [Active]; - PMHx: 00:45 TIA; prolonged QT interval; Pacemaker; Hypertension; High Cholesterol; GERD; ea Depression; Anxiety; - PSHx: 00:45 Carpal Tunnel Repair; Hysterectomy; lap band; Cholecystectomy; ; ea - Immunization history:: Adult Immunizations up to date. - Social history:: Smoking status: Patient denies any tobacco usage or history of. ROS: 01:35 Constitutional: Negative for fever, chills, and weight loss, Eyes: Negative for injury, tw4 pain, redness, and discharge, Respiratory: Negative for shortness of breath, cough, wheezing, and pleuritic chest pain, Abdomen/GI: Negative for abdominal pain, nausea, vomiting, diarrhea, and constipation, Back: Negative for injury and pain, MS/Extremity: Negative for injury and deformity, Skin: Negative for injury, rash, and discoloration, Neuro: Negative for headache, weakness, numbness, tingling, and seizure. 01:35 Cardiovascular: Positive for palpitations, Negative for chest pain, edema, orthopnea, paroxysmal nocturnal dyspnea. Exam: 01:35 Constitutional: This is a well developed, well nourished patient who is awake, alert, tw4 and in no acute distress. Head/Face: Normocephalic, atraumatic. Chest/axilla: Normal chest wall appearance and motion. Nontender with no deformity. No lesions are appreciated. Respiratory: Lungs have equal breath sounds bilaterally, clear to auscultation and percussion. No rales, rhonchi or wheezes noted. No increased work of breathing, no retractions or nasal flaring. Abdomen/GI: Soft, non-tender, with normal bowel sounds. No distension or tympany. No guarding or rebound. No evidence of tenderness throughout. Back: No spinal tenderness. No costovertebral tenderness. Full range of motion. MS/ Extremity: Pulses equal, no cyanosis. Neurovascular intact. Full, normal range of motion. Neuro: Awake and alert, GCS 15, oriented to person, place, time, and situation. Cranial nerves II-XII grossly intact. Motor strength 5/5 in all extremities. Sensory grossly intact. Cerebellar exam normal. Normal gait. 01:35 Cardiovascular: Rate: actual rate is 76 bpm, Rhythm: regular. Vital Signs: 00:28 BP 134 / 110; Pulse 71; Resp 18; Temp 97.8; Pulse Ox 98% ; Weight 86.18 kg; Height 5 ea ft. 2 in. (157.48 cm); 01:24 BP 130 / 83; Pulse 62; Resp 18; Pulse Ox 98% ; ea 00:28 Body Mass Index 34.75 (86.18 kg, 157.48 cm) ea MDM: 05/24 23:47 Patient medically screened. tw4 05/25 01:37 Data reviewed: vital signs, nurses notes. Data interpreted: Pulse oximetry: tw4 Interpretation: normal. Counseling: I had a detailed discussion with the patient and/or guardian regarding: the historical points, exam findings, and any diagnostic results supporting the discharge/admit diagnosis. Special discussion: I discussed with the patient/guardian in detail that at this point there is no indication for admission to the hospital. It is understood, however, that if the symptoms persist or worsen the patient needs to return immediately for re-evaluation. 05/24 23:48 Order name: Basic Metabolic Panel [facility] 05/24 23:48 Order name: CBC with Diff; Complete Time: 01:18 [facility] 05/25 01:18 Interpretation: Normal except: PLT 169; EOSINOPHIL % 5.0. [facility] 05/24 23:48 Order name: LFT's [facility] 05/24 23:48 Order name: Magnesium [facility] 05/24 23:48 Order name: NT PRO-BNP; Complete Time: 01:18 [facility] 05/25 01:19 Interpretation: Within normal limits: NT PRO-BNP 97. [facility] 05/24 23:48 Order name: PT-INR; Complete Time: 01:18 [facility] 05/25 01:18 Interpretation: Abnormal: PT 13.4. [facility] 05/24 23:48 Order name: Troponin (emerg Dept Use Only); Complete Time: 01:18 [facility] 05/25 01:19 Interpretation: Within normal limits: TROPED < 0.02. [facility] 05/24 23:48 Order name: Basic Metabolic Panel; Complete Time: 01:18 [facility] 05/25 01:19 Interpretation: Normal except: BUN 19; K 3.2; GFR 88. [facility] 05/24 23:48 Order name: Liver (Hepatic) Function; Complete Time: 01:18 [facility] 05/25 01:19 Interpretation: Normal except: GLOB 4.5; TP 8.4; ALK 144; AST 53; A/G 0.9. [facility] 05/24 23:48 Order name: Magnesium; Complete Time: 01:18 [facility] 05/25 01:19 Interpretation: Within normal limits: MG 2.1. [facility] 05/25 00:05 Order name: COVID-19 [facility] 05/25 00:05 Order name: Flu; Complete Time: 01:53 [facility] 05/25 00:05 Order name: Strep; Complete Time: 01:53 [facility] 05/25 01:30 Order name: Throat Culture [facility] 05/24 23:48 Order name: XRAY Chest (1 view) [facility] 05/24 23:48 Order name: EKG; Complete Time: 23:48 [facility] 05/24 23:48 Order name: Cardiac monitoring; Complete Time: 00:51 [facility] 05/24 23:48 Order name: EKG - Nurse/Tech; Complete Time: 00:51 tw4 05/24 23:48 Order name: IV Saline Lock; Complete Time: 00:51 4 05/24 23:48 Order name: Labs collected and sent; Complete Time: 00:51 tw4 05/24 23:48 Order name: O2 Per Protocol; Complete Time: 23:54 tw4 05/24 23:48 Order name: O2 Sat Monitoring; Complete Time: 23:54 4 05/25 00:05 Order name: Droplet/Contact Precautions; Complete Time: 00:51 tw4 EC:35 Rate is 76 beats/min. Rhythm is regular. QRS [place] is Normal. [place] interval is normal. QRS tw4 interval is normal. QT interval is prolonged at 560 msec. No Q waves. T waves are Normal. No ST changes noted. Clinical impression: NSR w/ Non-specific ST/T Changes. Interpreted by me. Reviewed by me. Administered Medications: 02:04 Drug: Potassium Effervescent Tablet 50 mEq Route: PO; ea 02:19 Follow up: Response: Medication administered at discharge. ea Disposition: 05/25/20 01:29 Discharged to Home. Impression: Palpitations, Hypokalemia. - Condition is Stable. - Discharge Instructions: Palpitations, Hypokalemia. - Work release form, Medication Reconciliation Form, Thank You Letter, Antibiotic Education, Prescription Opioid Use form. - Follow up: Vy Parker MD; When: Upon discharge from the Emergency Department; Reason: Recheck today's complaints, Continuance of care, Re-evaluation by your physician. - Problem is new. - Symptoms have improved. Signatures: Dispatcher [employer] EDClara Persaud RN RN bb Antunez, Elena, RN RN ea Wadley, Terrence, MD MD tw4 Corrections: (The following items were deleted from the chart) 02:02 01:29 05/25/2020 01:29 Discharged to Home. Impression: Palpitations. Condition is tw4 Stable. Forms are Medication Reconciliation Form, Thank You Letter, Antibiotic Education, Prescription Opioid Use. Follow up: Vy Parker; When: Upon discharge from the Emergency Department; Reason: Recheck today's complaints, Continuance of care, Re-evaluation by your physician. Problem is new. Symptoms have improved. tw4 02:22 02:02 05/25/2020 01:29 Discharged to Home. Impression: Palpitations; Hypokalemia. bb Condition is Stable. Discharge Instructions: Palpitations, Hypokalemia. Forms are Medication Reconciliation Form, Thank You Letter, Antibiotic Education, Prescription Opioid Use. Follow up: Vy Parker; When: Upon discharge from the Emergency Department; Reason: Recheck today's complaints, Continuance of care, Re-evaluation by your physician. Problem is new. Symptoms have improved. tw4
--- NOTE | 2020-05-25 01:29 | ER ---
Nurse's Notes [facility] Name: Vanessa Gonzalez Age: 44 yrs Sex: Female : 1975 Arrival Date: 05/24/2020 Time: 23:45 Bed 4 Private MD: Vy Parker Diagnosis: Palpitations;Hypokalemia Presentation: 05/25 00:41 Chief complaint: Patient states: Reports she felt her pacemaker was working abnormally, ea states " I started having a cough and feeling light headed. Reports she had an upper GI procedure at [facility] early this AM. Coronavirus screen: At this time, the client does not indicate any symptoms associated with coronavirus-19. Ebola Screen: No symptoms or risks identified at this time. Initial Sepsis Screen: Does the patient meet any 2 criteria? No. Patient's initial sepsis screen is negative. Does the patient have a suspected source of infection? No. Patient's initial sepsis screen is negative. Risk Assessment: Do you want to hurt yourself or someone else? Patient reports no desire to harm self or others. Onset of symptoms was May 25, 2020. 00:41 Method Of Arrival: Ambulatory ea 00:41 Acuity: ANDREW 3 ea Triage Assessment: 00:43 General: Appears in no apparent distress. Behavior is appropriate for age. Pain: Denies ea pain. Neuro: Level of Consciousness is awake, alert, obeys commands, Oriented to person, place, time. Cardiovascular: Patient's skin is warm and dry. Respiratory: Airway is patent Respiratory effort is even, unlabored, Respiratory pattern is regular, symmetrical. Derm: Skin is pink, warm \\T\\ dry. Historical: - Allergies: 00:45 Ketorolac; ea 00:45 Morphine; ea - Home Meds: 00:45 Repatha Syringe 140 mg/mL subcutaneous syrg 1 mL every 2 wks [Active]; Xanax 0.5 mg ea Oral tab 1 tab daily [Active]; Protonix 40 mg Oral TbEC once daily [Active]; Bystolic 5 mg Oral tab 1 tab once daily [Active]; amlodipine 2.5 mg tab 1 tab once daily [Active]; - PMHx: 00:45 TIA; prolonged QT interval; Pacemaker; Hypertension; High Cholesterol; GERD; ea Depression; Anxiety; - PSHx: 00:45 Carpal Tunnel Repair; Hysterectomy; lap band; Cholecystectomy; ; ea - Immunization history:: Adult Immunizations up to date. - Social history:: Smoking status: Patient denies any tobacco usage or history of. Screenin:27 Abuse screen: Denies threats or abuse. Nutritional screening: No deficits noted. ea Tuberculosis screening: No symptoms or risk factors identified. Fall Risk IV access (20 points). Assessment: 00:44 Reassessment: see triage assessment. ea 01:24 Reassessment: Patient and/or family updated on plan of care and expected duration. Pain ea level reassessed. Patient is alert, oriented x 3, equal unlabored respirations, skin warm/dry/pink. Vital Signs: 00:28 BP 134 / 110; Pulse 71; Resp 18; Temp 97.8; Pulse Ox 98% ; Weight 86.18 kg; Height 5 ea ft. 2 in. (157.48 cm); 01:24 BP 130 / 83; Pulse 62; Resp 18; Pulse Ox 98% ; ea 00:28 Body Mass Index 34.75 (86.18 kg, 157.48 cm) ea ED Course: 05/24 23:45 Patient arrived in ED. am2 23:45 Vy Parker MD is Private Physician. am2 23:47 Shimon Arenas MD is Attending Physician. tw4 05/25 00:11 Ney Herrera, RN is Primary Nurse. sg 00:27 Patient has correct armband on for positive identification. Bed in low position. Call ea light in reach. Side rails up X 1. 00:43 Triage completed. ea 00:43 Arm band placed on right wrist. 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 00:45 EKG done, by ED staff, reviewed by Shimon Arenas MD. Inserted saline lock: 20 gauge ds4 in left antecubital area, using aseptic technique. Blood collected. 01:28 XRAY Chest (1 view) In Process Unspecified. EDMS 01:28 Vy Parker MD is Referral Physician. tw4 02:19 No provider procedures requiring assistance completed. IV discontinued, intact, ea bleeding controlled, No redness/swelling at site. Pressure dressing applied. Administered Medications: 02:04 Drug: Potassium Effervescent Tablet 50 mEq Route: PO; ea 02:19 Follow up: Response: Medication administered at discharge. ea Outcome: 01:29 Discharge ordered by . tw4 02:22 Patient left the ED. bb 02:25 Discharged to home ambulatory. ea 02:25 Condition: stable 02:25 Discharge instructions given to patient, Instructed on discharge instructions, follow up and referral plans. Demonstrated understanding of instructions, follow-up care. Addendum: 05/29/2020 09:12 Addendum: COVID-19 Result: Negative result given to RN to notify pt. Contacted by: aarti Christian, HAND I BLOCKER. Signatures: Dispatcher [employer] EDMS Ney Herrera RN RN Clara Espana RN RN Beto Tate ds4 Akiko Parra Moriah mt Antunez, Elena RN RN Shimon Ellington MD MD tw4
[2020-05-25 02:30] VITALS: TEMP 97.8; O2SAT 98
[2020-05-25 02:31] VITALS: BP 130/83
--- NOTE | 2020-05-25 07:29 | EKG ---
Test Date: 2020-05-25 Test Time: 00:41:12 [place] Dealer: TRAN MEASUREMENT RESULTS: Intervals: Rate: 76 CA: 168 QRSD: 84 QT: 550 QTc: 618 [place]: P: 13 CA: 168 QRS: 0 T: -13 INTERPRETIVE STATEMENTS: Sinus rhythm with occasional and consecutive premature ventricular complexes Prolonged QT Abnormal ECG Compared to ECG 05/11/2020 20:47:02 Ventricular premature complex(es) now present Electronically Signed On 05-25-20 07:28:28 CDT by Hill Self
--- NOTE | 2020-05-25 07:36 | RAD REPORT ---
EXAM DESCRIPTION: George Single View05/25/2020 1:27 am CLINICAL HISTORY: Shortness breath COMPARISON: April 2020 FINDINGS: The lungs appear clear of acute infiltrate. The heart is normal size. Pacemaker leads in place IMPRESSION: No acute abnormalities displayed
== END 2020-05-25 02:22 | disposition home or self-care (01) ==
LOC: ER 23:41
DX: R00.2 Palpitations (principal); E87.6 Hypokalemia; K21.9 Gastro-esophageal reflux disease without esophagitis; E78.00 Pure hypercholesterolemia, unspecified; I10 Essential (primary) hypertension; Z95.0 Presence of cardiac pacemaker; Z86.73 Personal history of transient ischemic attack (TIA), and cerebral infarction without residual deficits; Z88.6 Allergy status to analgesic agent; Z11.59 Encounter for screening for other viral diseases
CPT/HCPCS: 93005; 87070; 85025; 80048; 36415; 83735; 85610; 80076; 87081; 84484; 83880; 87804 ×2; 71045; 99284; U0002

== ENCOUNTER 2020-06-11 20:50 | Emergency (ER) | payer OTHER ==
--- OUTSIDE RECORDS SUMMARY | 2020-06-11 20:55 | XMS REPORT | Clinical Summary ---
:1975 Author Organization [facility] Address [address] [place] [id number] Care Team Providers Name Role Phone Asked, [...] Comments CERVICAL CANCER SCREENING 1997 INFLUENZA VACCINE 07/13/2020 Implants Implanted Type Area Manager Assessment Device Shelf Model / Identifier Expiration Serial / Date Lot Joshuaquinton Guerra - [id number] - [id number] Cardiac N/A: LAZARA LEI 01/25/2020 [id number] / Implanted: Qty: 1 on 10/28/2018 by Yogesh Contreras Jr., M D at [facility] Pacemaker N/A [employer] [id number] / Generators [id number] S Lead [id number] Active Sc Sprint 55 Cm - [id number] Cardiac Pac ing N/A: [employer] CRM 07/10/2020 [id number] / Implanted: 10/28/2018 at [facility] (Quantity not on file) Manju ds or N/[employer] [id number] / Electrodes or [id number] Accessories Lead, Bipolar Active Fixation Atrial Zohaib roid Eluting 45 Cm Capsure Fix Novus System - [id number] Cardiac Pacing N/A: [employer] [facility] [id number] / Implanted: 10/28/2018 at [facility] (Quantity not on file) Manju ds or N/[employer] [id number] / Electrodes or [id number] Accessories Results Not on fileafter 06/11/2019 Advance Directives For more information, please contact: [phone] Type Date Recorded Patient Structural Draftsman Explanati on Advance Directives, Living Will and Medical Power of Evaporator Supervisor
--- OUTSIDE RECORDS SUMMARY | 2020-06-11 20:55 | XMS REPORT | Clinical Summary ---
:1975 Author Organization [facility] Address [address] [place] [address] Care Team Providers Name Role Phone Alison [...] 04/26/2020 Anesthesia Event Fortunato Palma NP 04/26/2020 [facility] General Internal Hemanth, Morbid ob esity (HCC) - Encounter Medicine Dana 04/27/2020 MD Darlene 04/25/2020 Travel 04/18/2020 Hospital Pre-Admission Testing Hemanth, Morb id obesity ([facility]) Encounter Dana Colon MD 04/18/2020 Orders Only General Internal Medicine 04/18/2020 Travel 08/26/2019 [facility] Radiology [facility], Bariatric surge ry status; Encounter Darian Luciano MD Abdominal pain, LUQ; Gastroesophagea l reflux disease, esophagitis presence not specified; Pre-operative c learance 08/26/2019 Outside Orders Central Scheduling [facility], [facility] ic surgery status (Primary Dx); Darian Luciano MD Abdominal pain, LUQ; Gastroesophagea l reflux disease, esophagitis presence not specified; Pre-operative c learance 07/29/2019 Surgery Gastroenterology Maya Knowles MOTILITY MD Tian 07/29/2019 [facility] Gastroenterology Maya Knowles Encounter MD Tian 07/23/2019 Anesthesia Event Concha Charles CRNA 07/23/2019 Surgery Gastroenterology Ang, UPPER ENDOS COPY,BIOPSY Darian Luciano MD 07/23/2019 [facility] Gastroenterology Ang, Encounter Darian Luciano MD 07/21/2019 Hospital Pre-Admission Testing Encounter after 06/11/2019 Social History Tobacco Use Types Packs/Day Years [...] 522 ms QTC Calculation(Bazett) 525 ms P Aurora 36 degrees R Aurora 7 degrees T Aurora 5 degrees Normal sinus rhythm Prolonged QT [...] 482 ms QTC Calculation(Bazett) 485 ms P Aurora -8 degrees R Aurora 18 degrees T Aurora 9 degrees Atrial-paced rhythm with pro longed [...] 2:40 PM Bariatric surgery Results for this GENERAL ASSEMBLER status procedure are in Abdominal pain, LUQ [...] reflux disease, esophagitis presence not specified after 06/11/2019 Results ARRYTHMIA IMPLANT REPORT - SCAN (05/09/2020 [...] : TESTED AT 70 - 110 mg/dL [address], [id number]: Hydraulic Boom Operator/Air Hole Driller ID = [id number] for ADIELPAMON Specimen Blood Performing Organization Address City/State/Zipcode Phone Number [address] [phone] CENTER CBC with platelet count + automated diff (04/27/2020 4:47 AM CDT) WBC 11.6 (H) 3.5 - 10.5 K/L [facility] RBC 4.16 3.93 - 5.22 M/L [facility] Hemoglobin 11.6 11.2 - 15.7 GM/DL [facility] Hematocrit 37.2 34.1 - 44.9 % [facility] MCV 89.4 79.4 - 94.8 fL [facility] MCH 27.9 25.6 - 32.2 pg [facility] MCHC 31.2 (L) 32.2 - 35.5 GM/DL [facility] RDW 13.9 11.7 - 14.4 % [facility] Platelets 206 150 - 450 K/CU MM [facility] MPV 10.8 9.4 - 12.[address] [facility] nRBC 0 0 - 0 /[address] [facility] % Neutros 81 % [facility] % Lymphs 10 % [facility] % Monos 8 % [facility] % Eos 0 % [facility] % Baso 0 % [facility] # Neutros 9.33 (H) 1.56 - 6.13 K/L [facility] # Lymphs 1.19 1.18 - 3.74 K/L [facility] # Monos 0.98 (H) 0.24 - 0.36 K/L [facility] # Eos 0.00 (L) 0.04 - 0.36 K/L [facility] # Baso 0.04 0.01 - 0.08 K/L [facility] Immature Granulocytes-Relative 1 0 - 1 % C HI [facility] Specimen Blood Performing Organization Address City/State/Zipcode Phone Number [facility] [address] [place] [address] CENTER Basic metabolic panel (04/27/2020 4:47 AM CDT) Sodium 143 136 - 145 meq/L [facility] Potassium 4.1 3.5 - 5.1 meq/L [facility] Chloride 115 (H) 98 - 107 meq/L [facility] CO2 25 22 - 29 meq/L [facility] BUN 9 7 - 21 mg/dL [facility] Creatinine 0.76 0.57 - 1.25 mg/dL [facility] Glucose 109 (H) 70 - 105 mg/dL [facility] Calcium 8.2 (L) 8.4 - 10.2 mg/dL [facility] EGFR 83Comment: ESTIMATED GFR IS mL/min/1.73 sq m [facility] NOT ACCURATE CREATININE [facility] CLEARANCE IN PREDICTING GLOMERULAR FILTRATION RATE. ESTIMATED GFR IS NOT APPLICABLE FOR DIALYSIS PATIENTS. Specimen Blood Narrative Performed At Hydraulic Boom Operator ID - PIAYA L [facility] MED ICAL CENTER Performing Organization Address City/State/Zipcode Phone Number [facility] MEDICAL [address] [place] [address] CENTER ECG 12 lead (04/26/2020 8:20 PM CDT)Only the most recent of2 resultswithin the time period is included. Specimen Narrative Performed At Ventricular Rate 61 BPM GE MUSE Atrial Rate 61 BPM P-R Interval 174 ms QRS Duration 90 ms Q-T Interval 522 ms QTC Calculation(Bazett) 525 ms P Aurora 36 degrees R Aurora 7 degrees T Aurora 5 degrees Normal sinus rhythm Prolonged QT Abnormal ECG When compared with ECG of 18-APR-2020 12 :20, Sinus rhythm has replaced Electronic atr ial pacemaker Confirmed by MD Yuan Roberto ([id number]) on 04/27 7:26:23 AM Procedure Note Interface, External Ris In - 04/27/2020 7:26 AM CDT Ventricular Rate 61 BPM Atrial Rate 61 BPM P-R Interval 174 ms QRS Duration 90 ms Q-T Interval 522 ms QTC Calculation(Bazett) 525 ms P Aurora 36 degrees R Aurora 7 degrees T Aurora 5 degrees Normal sinus rhythm Prolonged QT Abnormal ECG When compared with ECG of 18-APR-2020 12 :20, Sinus rhythm has replaced Electronic atr ial pacemaker Confirmed by MD Yuan Roberto ([id number]) on 04/27/2020 7:26:23 AM Performing Organization Address City/[facility] Phone Number GE MUSE Tissue Exam (04/26/2020 10:59 AM CDT)Only the most recent of2 resultswithin the time period is included. Case Report Surgical Pathology Report Case: [id number] [facility] Authorizing Provider:Evelia Bhardwajected: 04/26/2020 10:59 AM [facility] MD Darlene Ordering Location: [facility] Received:04/26/2020 02:14 PM SERVICES Pathologist: Lea Santillan MD Specimen:Explant, La p Gastric Band for I and D DIAGNOSIS A. GASTRIC, GASTRIC BAND, REMOVAL: [facility] - GASTRIC BAND IDENTIFIED (GROSS ONLY) [facility] Signing Pathologist Direct Phone Line: CPT Code(s) [address] [facility] ALTH [facility] CLINICAL HISTORY Morbid obesity [facility] EALTH Other hyperlipidemia [facility] Obstructive sleep apnea Heart disease, unspecified SPECIMEN SOURCE Gastric [facility] ALTH [facility] GROSS DESCRIPTION A. Received fresh labeled wi th the patients name, medical record number and "explant" is an Allergan brand gastric band measuring 5.5 x 5.5 x 2 cm with a 13 cm in length by 0.3 cm in diameter white tu [facility] be. Also received is a circ ular petesr Allergan brand Port-A-Cath measuring 3 cm in diameter and 0.9 cm in height. There is a 16.5 cm in length by 0.3 cm in diameter attached catheter. The Port-A-Cath i [facility] s inscribed with "lot number : [id number] part number: 3360-02 full range: 0-10 cc." A gross photograph is taken. No sections are submitted-gross only. KEVIN Sigala, PA ([facility]) MICROSCOPIC DESCRIPTION N/A [facility] Specimen Tissue - Explant Performing Organization Address City/State/Zipcode Phone Number [facility] [address] [place] [address] CENTER TRANSFUSION SERVICE REPORT - SCAN (04/19/2020 6:04 PM CDT) Narrative Performed At This result has an attachment that is no t available. Type and screen, automated (04/18/2020 12:18 PM CDT) ABO/RH AUTOMATED (BEAKER) A POSITIVE [facility] Ab Scrn NEGATIVE [facility] Specimen Blood Performing Organization Address City/[facility]/Zipcode Phone Number [facility] [address] [place] [address] Hemoglobin (04/18/2020 12:18 PM CDT) Hemoglobin 13.9 11.2 - 15.7 GM/DL [facility] Specimen Blood Narrative Performed At Hydraulic Boom Operator ID - [id number] [facility] Performing Organization Address City/[facility]/Zipcode Phone Number [facility] [address] [place] [address] CENTER BUN and Creatinine (04/18/2020 12:17 PM CDT) BUN 22 (H) 7 - 21 mg/dL [facility] ER Creatinine 0.85 0.57 - 1.25 mg/dL [facility] BUN/Creatinine Ratio 25.8824Comment: For a [facility] normal individual on a [facility] normal diet, the reference interval for the mass ratio ranges between 12:1 and 20:1 (BUN in mg/dL/creatinine in mg/dL) EGFR 73Comment: ESTIMATED GFR mL/min/1.[address] [facility] IS NOT ACCURATE [facility] CREATININE CLEARANCE IN PREDICTING GLOMERULAR FILTRATION RATE. ESTIMATED GFR IS NOT APPLICABLE FOR DIALYSIS PATIENTS. Specimen Blood Narrative Performed At Hydraulic Boom Operator ID - PIAYA L [facility] Performing Organization Address City/[facility]/Zipcode Phone Number [facility] [address] [place] [address] CENTER Electrolytes (04/18/2020 12:17 PM CDT) Sodium 137 136 - 145 meq/L [facility] Potassium 4.2 3.5 - 5.1 meq/L [facility] Chloride 103 98 - 107 meq/L [facility] CO2 26 22 - 29 meq/L [facility] Specimen Blood Narrative Performed At Hydraulic Boom Operator ID - PIAYA L [facility] MED ICAL CENTER Performing Organization Address City/State/Zipcode Phone Number [facility] [address] [place] [address] CENTER XR chest 2 views (08/26/2019 2:40 PM GENERAL ASSEMBLER) Specimen Narrative Performed At FINAL REPORT GE RIS History provided: Bariatric surgery, abd ominal pain CHEST PA AND LATERAL COMPARISON STUDY: 01/01/2019 Heart size normal. Dual lead left subcla vian ICD. Lungs clear and vascularity normal. Signed: Jc Tobar MD Report Verified Date/Time:08/26/2019 15:35:48 Reading Location: [facility] Diagnostic Imagi ng Reading Room - [facility] F1 1.310.12 Procedure Note Interface, External Ris In - 08/26/2019 3:38 PM GENERAL ASSEMBLER FINAL REPORT History provided: Bariatric surgery, abd ominal pain CHEST PA AND LATERAL COMPARISON STUDY: 01/01/2019 Heart size normal. Dual lead left subcla vian ICD. Lungs clear and vascularity normal. Signed: Jc Tobar MD Report Verified Date/Time: 08/26/2019 1 5:35:48 Reading Location: [facility] Diagnostic Imagi ng Reading Room - [facility] F1 1.310.12 Performing Organization Address City/State/Zipcode Phone Number GE RIS REPORT OF PROCEDURE - ENDOSCOPY URL (07/23/2019 7:31 AM CDT) Narrative Performed At This result has an attachment that is no t available. after 06/11/2019 Insurance Payer Benefit Plan / Group Subscriber ID Type Phone A ddress [employer] - MGD CARE [employer] HMO/POS/OPEN ACCESS xxxxxxxxxxx HMO/POS Advance Directives For more information, please contact:[address] [phone] Code Status Date Activated Date Inactivated Comments Full Code 04/26/2020 5:41 AM 04/27/2020 4:02 PM This code status was determined by: Patient Full Code 07/23/2019 5:59 AM 07/23/2019 10:56 AM This code status was determined by: Patient
--- OUTSIDE RECORDS SUMMARY | 2020-06-11 20:56 | XMS REPORT | Continuity of Care Document ---
:1975 Author Organization [facility] t Address [address] [place] [address] Dr. Thakkar [address] [place] [address] Care Team Providers Name Role Phone Asked, Pcp Primary Care Physician Unavailable Nilda Perla MD Attending Clinician Mustapha Pate Attending Clinician Sal Perla MD Attending Clinician [phone] Devon Palma NP Attending Clinician SAL [...] Date S raúl [employer] - MGD xxxxxxxxxxx [facility] - Medical HMO/POS/OPEN Center ACCESSxxxxxxxxx [...] Quantity Comments Source History SDOH Alcohol [facility] - Std Drinks [facility] History SDOH Alcohol [facility] - Binge [facility] Sex Assigned At [facility] History SDOH Alcohol 2019-07-21 2019-07-[address] [facility] - Frequency 00:00:00 00:00:00 Medical Center Smoking Status Start Date Stop Date Source Never smoker [facility] edical [place] Medications Ordered Filled Start Stop Current Ordering Indication Dosage Frequency Signature Comments Components Source Medication Medication Date Date Medication? Clinician (SIG) Name Name evolocumab Yes 140mg Q14D Inject [address] (REPATHA 7-16 mg [facility] - SYRINGE) 10:06: subcutaneo Med ical 140 mg/mL 44 usly every Cent er Syrg 14 (fourteen) days . ergocalcife 2020-0 Yes 37248X Q7D Take [facility] rol 7-16 50,000 [facility] - (VITAMIN 10:06: Units by Medic al D2) 1,250 44 mouth once Cent er mcg (50,000 a week. unit) capsule pantoprazol 2020-0 Yes 40mg QD Take [address] [facility] e 7-16 tablet (40 [facility] - (PROTONIX) 00:00: mg total) Me dical 40 MG 00 by mouth Center tablet daily. acetaminoph 2019-0 2019- No 500mg Take [address] en 04-27 tablet [facility] - (TYLENOL) 00:00: 23:59 (500 mg Medi rah 500 MG 00 :00 total) by Center tablet mouth every 6 (six) hours as needed for Pain for up to 10 days. acetaminoph 2020-0 2020- No 1{tbl} Take 1 C HI [...] [facility] - 5 MG tablet 13:48: daily. [place] [id number] Center amLODIPine 2019- No 10mg QD Take [...] Source Systolic blood 2020-04-27 10:59:00 98 mm[Hg] [facility] Diastolic blood 2020-04-27 10:59:00 50 mm[Hg] [facility] Heart rate 2020-04-27 10:59:00 58 /min [facility] Body temperature 2020-04-27 10:59:00 36.83 Jessica [facility] Respiratory rate 2020-04-27 10:59:00 18 /min [facility] Oxygen saturation in 2020-04-27 10:59:00 98 /min [facility] Arterial blood by Medical Ce nter Pulse oximetry Body height 2020-04-26 06:00:00 157.5 cm [facility] Body weight Measured 2020-04-26 06:00:00 95.936 kg [facility] BMI 2020-04-26 06:00:00 38.67 kg/m2 [facility] Procedures Procedure Date / Time Performed Performing Clinician Deepti godoy ARRYTHMIA IMPLANT REPORT 2020-05-09 14:21:41 Provider, Default [facility] - - SCAN [facility] ARRYTHMIA IMPLANT REPORT 2020-04-28 10:40:58 Provider, Default [facility] - - [facility] RHYTHM STRIP - SCAN 2020-04-28 10:40:57 Provider, Default [facility] POCT-GLUCOSE METER 2020-04-27 11:03:[address] [facility] POCT-GLUCOSE METER 2020-04-27 05:33:[address] [facility] BASIC METABOLIC PANEL 2020-04-27 04:47:00 Katy Waite [address] CBC W/PLT COUNT & AUTO 2020-04-27 04:47:00 Katy Waite [facility] POCT-GLUCOSE METER 2020-04-26 23:56:[address] [facility] ECG 12-LEAD 2020-04-26 20:20:42 Unknown, Hl7 Doctor [facility] POCT-GLUCOSE METER 2020-04-26 17:33:[address] [facility] TISSUE EXAM 2020-04-26 10:59:[address] [facility] LAPAROSCOPY,REMOVAL 2020-04-26 08:00:[address] [facility] - GASTRIC BAND [facility] ROBOTIC 2020-04-26 08:00:[address] [facility] - LAPAROSCOPY,ESOPHAGOJEJU [facility] NOSTOMY ROBOTIC 2020-04-26 08:00:00 Dana Perla [facility] - LAPAROSCOPY,HERNIORRHAPH [facility] Y HIATAL UPPER ENDOSCOPY 2020-04-26 08:00:[address] [facility] TRANSFUSION SERVICE 2020-04-19 18:04:56 Provider, Default [facility] - REPORT - [facility] ECG 12-LEAD 2020-04-18 12:20:00 Unknown, Hl7 Doctor [facility] HEMOGLOBIN 2020-04-18 12:18:00 Fortunato Palma [facility] TYPE AND SCREEN, 2020-04-18 12:18:00 [facility] BUN AND CREATININE 2020-04-18 12:17:00 [facility] - W/RATIO [facility] ELECTROLYTE PANEL 2020-04-18 12:17:00 Fortunato Palma [facility] XR CHEST 2 VIEWS 2019-08-26 14:40:00 [facility] 2019-07-29 15:00:00 Maya Knowles [facility] REPORT OF PROCEDURE - 2019-07-23 07:31:[address] [facility] ENDOSCOPY [facility] TISSUE EXAM 2019-07-23 07:22:00 Darian Fry [facility] UPPER ENDOSCOPY,BIOPSY 2019-07-23 07:00:00 [facility] Planned Activity Planned Date Details Comments Source Future Scheduled 2020-07-13 INFLUENZA VACCINE [place] [facility] 00:00:00 [code = INFLUENZA VACCINE] Future Scheduled 1997 Screening for [facility] 00:00:00 malignant neoplasm of cervix (procedure) [code = 237058449] Encounters Start End Encounter Admission Attending Care Care Encounter Source Date/Time Date/Time Type Type Clinicians Facility Department ID 2020-05-16 2020-05-16 Office Allyn BARAJAS [id number] 13:19:09 15:20:25 Visit erika Dana AMBULATOR 350.1.13.21 G Y 0.2.7.2.686 [id number] 800 2020-05-02 2020-05-02 Office EMILY Queen [id number] 13:56:12 14:26:12 Visit Kandis A AMBULATOR 350.1.13.21 Y 0.2.7.2.686 [id number] 800 2020-04-18 2020-04-18 Office Allyn Kenia [id number] 09:19:54 15:17:15 Visit Dana james AMBULATOR 350.1.13.21 G Y 0.2.7.2.686 [id number] 800 2019-12-02 2019-12-02 Office Allyn Kenia [id number] 10:01:30 12:40:44 Visit Dana james AMBULATOR 350.1.13.21 G Y 0.2.7.2.686 [id number] 2019-07-16 2019-07-16 Office CassieEMILY campbell [id number] 13:41:03 15:14:00 Visit [place] AMBULATOR 350.1.13.21 Y 0.2.7.2.686 [id number] 800 2019-06-16 2019-06-16 Office EMILY Tirado [id number] 10:26:53 13:08:19 Visit [place] AMBULATOR 350.1.13.21 Y 0.2.7.2.686 [id number] 800 2019-05-12 2019-05-12 Office AvniEMILY anderson [id number] 12:57:08 15:12:24 Visit Darian AMBULATOR 350.1.13.21 Y 0.2.7.2.686 [id number] Results Test Description Test Time Test Comments Results Result Comments Source POC-Glucose meter 2020-04-27 11:14:00 Test Item Value Reference Range Interpretation Comme nts POC-Glucose Meter (test code = 86 mg/dL 70-110 : TESTED AT [facility] [address] [facility] 1538) [facility], [facility] 30: Light Rail Vehicle Operator/Techni ashish ID = [id number] for ADIELPALMIRA Lab Interpretation (test code = Normal 56055-8) [facility] [id number] 11:14:00 Test Item Value Reference Range Interpretation Comments POC-GLUCOSE METER 86 mg/dL 70-110 : TESTED A T [facility] 6720 (BEAKER) (test code = [place]Y [place], 1538) [address]: Light Rail Vehicle Operator/Techni ashish ID = [id number] for SABAS CHAVEZ ECG 12 [id number] 07:26:27Interface, External Ris In - 04/27/2020 7:26 AM CDTVentricular Rate 61 BPMAtrial Rate 61 BPMP-R Interval 174 msQRS Duration 90 msQ-T Interval 522 msQTC Calculation(Bazett) 525 msP Pana 36 degreesR Pana 7 degreesT Pana 5 degreesNormal sinus rhythmProlonged QTAbnormal ECGWhen compared with ECG of 18-APR-2020 12:20,Sinus rhythm has replaced Electronic atrial pacemakerConfirmed by MD Yuan Roberto ([id number]) on 04/27/2020 7:26:23 AM [facility] metabolic [id number] 05:47:00 Test Item Value Reference Range Interpretation Comments Sodium (test code = 143 meq/L 297-214 4829-2) Potassium (test code = 4.1 meq/L 3.5-5.1 2823-3) Chloride (test code = 115 meq/L 98-107 H 2075-0) CO2 (test code = 25 meq/L 22-29 2028-9) BUN (test code = 9 mg/dL 7-21 3094-0) Creatinine (test code 0.76 mg/dL 0.57-1.25 = 2160-0) Glucose (test code = 109 mg/dL 70-105 H 2345-7) Calcium (test code = 8.2 mg/dL 8.4-10.2 L 73403-7) EGFR (test code = 83 mL/min/1.73 [place] [address]-8) NOT ACCURATE CREATININE CLEARANCE IN PREDICTING GLOMERULAR FILTRATION RATE . ESTIMATED GFR I S NOT APPLICABLE FOR DIALYSIS PATIENTS. MANE (test code = MANE) [employer] Vehicle Operator ID - PIAYA L Lab Interpretation Abnormal (test code = 88259-4) [facility] METABOLIC [id number] 05:47:00 Test Item Value Reference Range Interpretation [...] S NOT APPLICABLE FOR DIALYSIS PATIEN TS. [employer] Vehicle Operator ID - PIAYA LPOCT-GLUCOSE [id number] 05:44:00 Test Item Value Reference Range Interpretation Comments POC-GLUCOSE METER 97 mg/dL 70-110 : TESTED A T [facility] 67[address] (BEAKER) (test code = GRET[facility]IN [address] [facility], 1538) [address]: Light Rail Vehicle Operator/Techni ashish ID = [id number] for BRANDEE ERS, POLO CBC with platelet count + automated [id number] 05:31:00 Test Item Value Reference Range Interpretation [...] 450 K/CU MM MPV (test code = 63111-2) 10.8 fL 9.4-12.3 nRBC (test code = [...] 2801) Lab Interpretation (test code = Abnormal 00274-5) [facility] W/PLT COUNT & AUTO [id number] 05:31:00 Test Item Value Reference Range Interpretation [...] PERCENT (BEAKER) (test code = 2801) POCT-GLUCOSE [id number] 00:07:00 Test Item Value Reference Range Interpretation Comments POC-GLUCOSE METER 150 mg/dL 70-110 H : TESTED A T [facility] 6720 (BEAKER) (test code = [facility], 1538) [address]: Light Rail Vehicle Operator/Techni ashish ID = [id number] for POLO CHAVEZ POCT-GLUCOSE [id number] 17:50:00 Test Item Value Reference Range Interpretation Comments POC-GLUCOSE METER 161 mg/dL 70-110 H : TESTED A T [facility] 6720 (BEAKER) (test code = [facility], 1538) [address]: Light Rail Vehicle Operator/Techni ashish ID = [id number] for Ramirez blake Tissue [id number] 16:24:00 Test Item Value Reference Range Interpretation Comments Case Report (test code Surgical Pathology = 104) Report Case: [id number] Authorizing Provider: Dana Perla Collected: 04/26/2020 10:59 AM MD Sal Ordering Location: [facility] PERIOPERATIVE Received: 04/26/2020 02:14 PM SERVICES Pathologist: Lea Santillan MD Specimen: Explant, Lap Gastric Band for I and D DIAGNOSIS (test code = q3dolPGsVIRac8qnZKJkrGA 3220) uZzEwMzNcZnRuYmpcdWMxIH bgbcBdSBheg2GsZ4SmLaVuS FxhbnNpXGRlZmxhbmcxMDMz MNL3izUzDFRpDUxhZTWvHMn dHz4sjGOhaGdxMlIqHKPhv2 vldnUFcomlwBt9n2hsBWDvJ sG5kSLqQQqmE6vqrpMglAOd HYEoIXl2pI76VOKohO2byKX sIDtccmVkMFxncmVlbjBcYm q0GRSoM3gnSBEoYDNtF6QfE O0nPDKrVvb5BMY7DGD3xVro x1M9rFWwtMFryUxrVnBeIxR tZPYSs6ZuRBj5wXkvQ8RnQM OdIlY5qVZxPHBdICdxGHHoN LMjqtC5qT67XKaawoC6hYKq y6Gsz46qe053iR1llHSpWEA 6SVAfSICsgWJqJWYiQRV8HT IxlGGzP5f6RyWgkTQxN4X2S gLypSMcP8G8XbRkhHAeX8W0 TzMhbXPaSIEcmQQcTt5woOS mmSXqbw6rvn30UDX9w0YhdV iuTJF3BWP3RkZdGh0poAMkK UQrOK4hKoKcjYFxECGqzk20 iQrwGZwkjoEriL8nGpIfWJW shHHeNPLnPQ1bjHPnZGQdwF 5ucmxjXHBnYnJkcmhlYWRcc OvadvOsQf3oqMktTDW9OGif K6risE9lBwY4EAffP1iosT1 pYUy9QOsodNL7LCZeeF4mUQ 9uoaoyz7apKfBoFH8cuejul 2uyTmImKQ1boez7v4paFhNv PP9htmtsk7bjDwRxDZroURH lpqijHGDke5XjstetYRAhb2 MvQ4GjjAcnZ29dwLrwU23vP JYpxRicmD1jyKvumD2dFwAr ZnMyMFxxbFxwbGFpblxmMFx mczIwXHBsYWluXGYxXGZzMj JyRZ8qC6ZLQWIVVgekV4NBT ZCNWgTBGB3TJJFSDQ9KWzJK OlxwYXIgICAgICAgICAgIC0 oO9MKJSFQLtROVL4SYDjTAO 4LIJCLHKEmUZmMI8OBFE2MF FkpXHBhclxwYXJccGFyfXtc acBsFJvjl8EnHGfsTGDeKF6 wuKrfCQHqTE2dUDFdK1souD 1jiha2BnOnPCOqJfP5FXUho kG3Qbj7EIZwCXcgk6lma0Nx YPHxYVy4kTlwGsKhQHTay0t zcyBcZmNoYXJzZXQwIEFyaW GjL503r0cwq0lkqtTtnHM7B VQiEIU6WZnvynJbjzY8OEzs bDSqWcZ0CKkvqtIsIVhlguL oqeTzJsf9KREyZ900TPP8bB vzd7cgFRX7EWHiPQCyUcFqQ p5nqFBpJ051HWEnTBROKPOa aMb8LYTaiiPgdsMqiZZOw74 1C669t6qaZCJohlDiuUcVxo jmi6tdA922LASrzBPxeqKzU cOeRAKguHAflES2VRItEF3v qincGKrhLJqnOUJdfaG3SBV urHVfT1NuBGUzHP6xrbexLU U9WVenDQTfHHE4YxKbCYCss 3Laths6EuDfhv7jgd70AEG7 w4RopRuhWIV3EBG6ReWqPx7 geFLfJVMwZG0vVxSljPAuBR Ajrw85dYhdIPgsJQP8FUJhu mClj3Lep9akPiUgjtYcO6uz H2WzPCWrSLLgJMShFcZwuhA ge4Qnt4IleBUjxMd1a2jxAG XvHIDtpNyiz5lgLRZ2YBUdf PTqE5ayqU9tGSFcPL0fhrdo p2edSBxgVBtrYQXxwHI2nnU 8IPNudVKxN7YvnS0tKCZoSZ djWJExvhu6JoJyLg0gzIIys TcyMFxzYmtwYWdlXHBnbmNv bnRccGduZGVjXHBsYWluXHB sYWluXGYwXGZzMjRccWxcbG FuZzEwMzNcaGljaFxmMVxkY uDsAGRuJCwxP9lyFvDmKwWd Yvy3EURxdHFmEWTnOfr8LME eeUPjLADGaErfwV6bHHKcdO ctuX3oyRK9DDLbtqFznQANl I1bBEHCxO7nBeX5MlCpTiM8 BXW0RNFygSIfgG4= CPT Code(s) (test code t4fdaJBiVVXufZWcReCbEDF = 3357) eRQPrs3otIIXerNRhVjCtEz NcZnRuYmpcdWMxXGRlZmYwe 8zco113zBZsq3yvMHNxKfU8 jYOlXQKjpPAeH513m8rij6t tazRdfUG3IVCsPHN7GLokbu EgulF6YSefqVIwXgG7FUbck mDcLFbiofQhawBgKkw6XRVd J259GRC6mXruh1fmABE8KTV yZNHmOpFqMq2xhUUtW703OF QjZWMIUTPkrJl9AGRvcyLsg cKevMQWb168G078a7riZWEq koXurHqRabewh5rkJ154XSB hcGVydzEyMjQwXHBhcGVyaD B5UIWzOL0edjgkAbBwBY7pb xufAzJcDG8idvx8XuJaNB1n cmdiNzIwXGhlYWRlcnkwXGZ wl6EczwuvBX9hA9Zoo1R6pH 9maXRcZGVmdGFiNzIwXGZvc d1beYAyYSmrb9KhWGE0jlT8 oALjeHVkDLXfJR37Gxhkd3H jUsdbUNI2IWVgxsInh7Sxm9 bcWiGdvwUpG3riL7DwFFDgM LKxXPXcCwUmqzIdl0Uck5Zr eJEzrPr3l3iuANLoLJZwhKq le7zfUAZ9HYWzO1B3pRNwr6 viXSpwPWLcdHI5sabdNSihM EDekfE4omdsEVzwHAEwuEN6 idarMSslLOLlZiX3uepjVKv xZJGhIBJ3NXekh547ZWH1KM xzYmtwYWdlXHBnbmNvbnRcc GduZGVjXHBsYWluXHBsYWlu XGYwXGZzMjRccWxccGxhaW5 qArZgNvLjOSmfAL1mCQVeG3 vpeDYdFCAjUITvB9bmFgDol K8qsBlvAFdasxQoVAb5XkUv XHBhcn0= CLINICAL HISTORY (test v2njwZEwNSWteSGaFmDdUSH code = 3356) cRAEvh4agVWDmcTYjPjFxCs NcZnRuYmpcdWMxXGRlZmYwe 1zpp239tZCwj2qhUWDlEmK6 gBWkCNPnuUBlP039KSZhHXj yh1sxr5BoJSJsjDLud7Q0KA KQtqoaoBq0yJkgQ51gs3T4E sseM1ibFIPdEATgP9FpSJ5k ITIoJjm8OPT3EIO1EHDyFUX aA2JoMC1bXZVrcTWpMNe2g5 zguJtfCWKsRGN4c5egRIvxf aKqIV3sor2mcOp4f9rkcdCc QJMlUWCehDLBPZLwG1NmwCg nXe3rpQm5hYsfNcaaAEW5Bo q6LK1fub66ftx7cBmbBJYld cptVfP3MCgfRSJvirptXYn2 MFxtYXJnbDcyMFxtYXJncjc yMFxtYXJndDcyMFxtYXJnYj oiLQimYVDgRQE5XDbwp637V TQ0BAmzx1nra8fjwEDnUev3 VMWnKvZiHazyPAuoo9Hxe5c aXGKomh3yTXI9xGRydThyr7 C0tDCpQKTnoOQumxXyTKAzZ xI5JCilNR2eho46ONAiYCT5 yq3ceUJjfBdjejUgwISdBHn kX5VsYXXbb829OTMtH6KpIW Vqh3N2meRaPdDpXNEoeXR5i kK7FMMvUUe1jPPevqT9qpJn aBZxN1jomT58MuGjuSOkF8V vuQ87HuMtoCHiT2VflK60Wd LkiRXgL6QuoS93DjSvfSSfE YCgfAIkCm2ckUBkdIUoq1Oi rONnEPubN80vr233VTGzdeE wA1ageUUpibcvmCZkjbwgLO xodyN8PLw2ytKbywwklSqqn GFpblxmMVxmczIwXGxhbmcx LYWgZQedV0vrBhTsLTSaqGj lMSiyq8EoSKNbCIXnZxNmXU 8bGcriVE9hYKIgiGnyvUwrJ SBPdGhlciBoeXBlcmxpcGlk RI3sXKSfeDeoSTOFRwZ7apE pbGx7JLWnoVFtxGFybO2uHG BcbGluZSBIZWFydCBkaXNlY XQoBXZ0hgFbXSFfPlnqNUVm cGFyfQ== SPECIMEN SOURCE (test u7znoFOyYXLdlLWyKrEnEES code = 3377) iMPCcw4ioPNTuqAEoZwVoYt NcZnRuYmpcdWMxXGRlZmYwe 3bhq473aHOyt0gmCIKeNbW7 qNFnVTUumRIoR030p0mmn9d akzEooWB8PEJwCTP6BXgzow YclbF5YXmdtRGuPwK5PTktf nBsWQtzrsCkevSzNss1AERf I389ZCD5lDwwj4ypRZC3APK pCVMyYnLbFj4isKGuW665RB IzSDPPOGNudNj0GXGpwxYmi fTokMRKh196P458f0rjGFNk njQrkZuGswtrf6ibJ396CGU hcGVydzEyMjQwXHBhcGVyaD X7BRUwPX2bhbfbZdEfBT5za hesDvFbPJ0btsl0LvKaXC5d cmdiNzIwXGhlYWRlcnkwXGZ js8VdztceVJ7kY6Sps0B1vS 9maXRcZGVmdGFiNzIwXGZvc j5bxCOmOSger8NfTNB8hmJ9 lLGduGXdUUJrOT19Roshr8G aTbewEHN8PPLxlgZcu1Dlo1 wgDsGiiqKwZ4rbR5EeYQImR JDaIJSgZcZrysJcw3Cgb5Ve iMTxfFs6p2kpIQDcONGfrVh si5paYQC9DOGzD0I3pXXzz8 grRPfeYPCtbVT3uzboFBdeC ZIrvaP2rsjoHKltHAMvpGK7 evonQOzyJETuTuY9bntgQLg fCGCbEOB6PSigs619QOC0QG xzYmtwYWdlXHBnbmNvbnRcc GduZGVjXHBsYWluXHBsYWlu XGYwXGZzMjRccWxccGxhaW5 nRsJiOsOpSWoxRR0rUMFqK7 ifxSCdQQGcDXLxJ6cfThOip H7twNsoTExrseNqOLhtg7Du aWNccGFyfQ== GROSS DESCRIPTION s6bndCPqQEUfvHElPeYrDJW (test code = 3366) hOUIwi7qkCGSyqHFpKtRhGk NcZnRuYmpcdWMxXGRlZmYwe 3kno446fMOhz5rsMFPmScI4 kAIbGRJohJTjY811n6wqf9h ivxCywZY5GUVjAND3ZTeabl RiaaB7NNfttZNyDeK5MZrlq cErIFgyhbKyhxBgHei7LJEs B766YEO4fVtpn0apXKE0CSM oFYGzJrMjMs9qtOFsR012RA KnZQOVRRJkjWi7WYQcrjWjg gJrhDLXb324E545p0vkAEMc ktLdeIxRlgzoc8biA638CJN hcGVydzEyMjQwXHBhcGVyaD G0WGGrFF4qtqcfMnXsER4mc bheRrIsWC2dfpt4KjIqSL3q cmdiNzIwXGhlYWRlcnkwXGZ uj3PfdmizZR0xT7Edg0O4pA 9maXRcZGVmdGFiNzIwXGZvc j0kfQMdQYyvg5GxYKV2uuP6 zNIdjBOsLTFhCM60Hvwkp4D bXwilIVV3IBIbxbBhn5Kbg8 bdPoVnsjYgQ7fpJ0EkVIZnI SRmMCOfItEyygGgt8Djj9At mBAxkPi6a1kzOYBtKTJmuAa lq8jhJQX9DQPcS3F9eUNdj4 coOXjjFMWwcCA3iwwwWWohF UGqjeP7qglmUNpqWXNixHS0 atdkSHzcVFTlHjE9rqifZPf tISHgQSI9GSden764DRB9AU xzYmtwYWdlXHBnbmNvbnRcc GduZGVjXHBsYWluXHBsYWlu XGYwXGZzMjRccWxccGxhaW5 iEySvXcZmTVdzMM2bENPoS5 craXKzQRCqDJIaK9xaWmMos D1eiIihFEtaoxMfZEAoJUFe W5TarcWlAQJtBPZcVRrtTcA uLJSwi4g0fEI1oPLzcLJ8mW VqtDzaDhMgOE2ayDXwTQ0wP FtlLMnfbbLgr6EgDY41oKJz xvKetfKzCuN8mOazlxEnIYb aAIXyYCGwgPPyG6RbNQTnKT 3xMVzyt4WqtRBcBsRoQSOmR NTbxEDzqumiUR10MWzaAQ36 DClgJpEkxJF3qHKuGLNmQCG sH70ozP1wzEYgL2CcJTX0HP AuMyBjbSBpbiBkaWFtZXRlc uL1cNq2TCF9pAAsWvMiVTqr byByZWNlaXZlZCBpcyBhIGN gczB8lYWrKDFidnOChXpwji tccuMxifHhKIXRc3U8PXIaA 9C2cQIsEUHbsXQrrqfxMpTr bSBpbiBkaWFtZXRlciBhbmQ nHP67NWWbMQycOBeveLahcL 4gIFRoZXJlIGlzIGEgMTYuN VYpeUKronCnQP7kzJnlVmzo GH6kDRMwCXkzDEBaDI9gzQQ kVJX3bEEtfCAhIDLclRuelL XcDfMdPGavSKZctuAgJO7AD LNqGZugVOgyt8QszWKeSFE7 zMVeFDBaq1MefmHyUmNxXcM kD8cJDfstNvGqHXY0RT97wG ArmqowXrD6MC8jGuEfqCdyH HJhbmdlOiAwLTEwIGNjLiIg GWEeX4Tyx1DavBhshC0vsnS dfBTccjI0MIrfnd4gWU0rIO VyE8Afp85gPPZhDXTryTFkj GM7GRMoN7Zoy6Psm09brI9l xWZlZQRvnaMXuVSob4DjCUw yYXVuLCBNSFMsIFBBIChBU0 NQKVxwYXJccGFyXHBhcn0= MICROSCOPIC z8uvaAZhKXWxlGMnSwWlPRT DESCRIPTION (test code jTROuo5euIGSgwHUrJfHrRi = 3371) NcZnRuYmpcdWMxXGRlZmYwe 4cjl196fMNjq8icGAWgYeW7 bWEaNTAnnGSnA733p2wyj8q mwnKuyVK8ZMOrNJK2HIdqcf SxceG0BIpjbRYeRoF2KXmsg fSvLRhhxuBjsmQcEoi7WANu Y760HHK3nQidw1bjNEE2CGB tZNUwUmZzQq2esBYfX235VZ UdZNZRVGUyxRo3DJFdoaDlu mFcuPAWe014A253o7seUOQp bpHohFyKkdnds8ufV563EYO hcGVydzEyMjQwXHBhcGVyaD E3NLEeZC1dybiyDvZoWH7zl aabMyYpDY9hqxt0KsIiON0y cmdiNzIwXGhlYWRlcnkwXGZ zb6FzyuspUJ0qO1Vxy6E2eY 9maXRcZGVmdGFiNzIwXGZvc l8gcBStJXwmy3LjNPI1xkW9 eDCetTXzRQYgDC46Axlqu7N kCfphRYR3OTPjqiJrm3Grx4 tuHeLnsyLhV5nwJ1BfYMArK SPtXEEzGcOlxbHwi5Vra9Cg sTBzzRc8o9qmROOjEVPamYk hm0hnDNY1GQJkX1Q4vVZby1 dtYYcjRHOavCD1xayxEWduB CIjjwY9eupoWMhjUSSngJV9 zeurADdwIAGjVtA1ppnwFUv kIPArCSJ7TTnbi726SGF2OO xzYmtwYWdlXHBnbmNvbnRcc GduZGVjXHBsYWluXHBsYWlu XGYwXGZzMjRccWxccGxhaW5 yOqScGuQuXUvxSN1nPTPcJ2 rzzLYbVEZwKFSvC7uvMzFgk S2ygTbkSFzqfiVqIX1fGGgr YXJ9 [facility]ilionTISSUE [id number] 16:24:00Surgical Pathology Report Case: [id number] Authorizing Provider: Dana Perla Collected: 04/26/2020 10:59 AM MD Sal [facility] Received: 04/26/2020 02:14 PM SERVICES Pathologist: Lea Santillan MD Specimen: Explant, Lap Gastric Band for I and D A. GASTRIC, GASTRIC BAND, REMOVAL: - GASTRIC BAND IDENTIFIED (GROSS ONLY) Signing Pathologist Direct Phone Line: [phone] signed by Lea Santillan MD on 04/26/2020 at 4:24 [id number] obesityOther hyperlipidemia Obstructive sleep apnea Heart disease, [...] The Port-A-Cath is inscribed with "lot number: [id number] part number: [id number] full range: 0-10 cc." A gross photograph is taken. No sections are submitted-gross only.KEVIN Sigala, PA (ASCP)N/AType and screen, [id number] 13:43:00 Test Item Value Reference Range Interpretation Comments ABO/RH AUTOMATED (BEAKER) (test A POSITIVE code = 2260) Ab Scrn (test code = 890-4) NEGATIVE [facility]ilionElectrolytes2020-07-07 12:53:00 Test Item Value Reference Range Interpretation Comments Sodium (test code = 137 meq/L 206-783 5106-2) Potassium (test code = 4.2 meq/L 3.5-5.1 2823-3) Chloride (test code = 103 meq/L 98-107 2075-0) CO2 (test code = 8-9) 26 meq/L 22-29 MANE (test code = MANE) [employer] Vehicle [employer] ID - PIAYA L Lab Interpretation (test Normal code = 58870-1) [facility] PavilionBUN and [id number] 12:53:00 Test Item Value Reference Range Interpretation [...] mL/min/1.73 [place] [address]-4) NOT ACCURATE CREATININE CLEARANCE IN PREDICTING GLOMERULAR FILTRATION RATE . ESTIMATED GFR I S NOT APPLICABLE FOR DIALYSIS PATIENTS. MANE (test code = MANE) [employer] Vehicle Operator ID - PIAYA L Lab Interpretation Abnormal (test code = 97925-7) [facility]ilionELECTROLYTES2020-07-07 12:53:00 Test Item Value Reference Range Interpretation Comments SODIUM (BEAKER) (test code = 381) 137 meq/L 136-145 POTASSIUM (BEAKER) (test code = 4.2 meq/L 3.5-5.1 379) CHLORIDE (BEAKER) (test code = 382) 103 meq/L 98-107 CO2 (BEAKER) (test code = 355) 26 meq/L 22-29 [employer] Operator ID - GARTH LBUN AND CREATININE [id number] 12:53:00 Test Item Value Reference Range Interpretation [...] S NOT APPLICABLE FOR DIALYSIS PATIEN TS. [employer] Vehicle Operator ID - GARTH [id number] 12:36:00 Test Item Value Reference Range Interpretation Comments Hemoglobin (test code = 13.9 11.2- 15.7 GM/DL 786-4) MANE (test code = MANE) [employer] Vehicle Operator ID - [id number] Lab Interpretation (test Normal code = 60078-1) [facility]ilionHEMOGLOBIN2020-07-07 12:36:00 Test Item Value Reference Range Interpretation Comments HEMOGLOBIN (BEAKER) (test code = 13.9 GM/DL 11.2-15.7 410) [employer] Operator ID - [id number], CHEST, 2 [id number] 15:35:00Reason for Exam:- >bariatric surgery status; abdominal pain,LUQ, Gastroesophageal reflux disease,esophagitis presence not specificied, pre-operative clearanceFINAL REPORT History provided: Bariatric surgery, abdominal pain CHEST PA ANDLATERAL COMPARISON STUDY: 01/01/2019 Heart size normal. Dual lead left subclavian ICD. Lungs clear and vascularity normal. Signed: Jc Tobar MDReport Verified Date/Time: 08/26/2019 15:35:48 Reading Location: [facility] Diagnostic Imaging Reading Room - [facility] 1.310.12 XR chest 2 [id number] 15:35:00 Interface, External Ris In - 08/26/2019 3:38 PM CSTFINAL REPORT History provided: Bariatric surgery, abdominal pain CHEST PA AND LATERAL COMPARISON STUDY: 01/01/2019 Heart size normal. Dual lead left subclavian ICD. Lungs clear and vascularity normal. Signed: Jc Tobar MDReport Verified Date/Time: 08/26/2019 15:35:48 Reading Location: [facility] Diagnostic Imaging Reading Room -[facility] 1.310.12 [facility] [id number] 09:50:00 Surgical Pathology Report Case: [id number] Authorizing Provider: Darian Fry MD Collected: 07/23/2019 0722 Ordering Location: [facility] Endoscopy Received: 07/23/2019 1333 Services Pathologist: Lea [...] DYSPLASIA, MALIGNANCY Signing Pathologist Direct Phone Line: [phone] signed by Lea Santillan MD on 07/27/2019 at 9:50 [id number]. Biopsy gastric, description rule out H. Pylori. [...] evaluated Immunohistochemistry technical testing was performed at [facility], Pathology Laboratory where it was developed and [...] to perform high complexity clinical laboratory testing.HEMOGLOBIN [id number] 12:55:00 Test Item Value Reference Range Interpretation Comments HEMOGLOBIN A1C (BEAKER) (test code = 4.8 % 4.3-6.1 368) LIPID [id number] 08:01:00 Test Item Value Reference Range Interpretation [...] 130-159 High 160-189 Very High >=190COMPREHENSIVE METABOLIC [id number] 08:01:00 Test Item Value Reference Range Interpretation [...] FOR DIALYSIS PATIEN TS. TSH/FREE T4 IF [id number] 06:11:00 Test Item Value Reference Range Interpretation Comments THYROID STIMULATING HORMONE 2.58 uIU/mL 0.35-4.94 (BEAKER) (test code = 772) VITAMIN B12 AND [id number] 06:11:00 Test Item Value Reference Range Interpretation [...] 0-0 (BEAKER) (test code = 413) URINALYSIS [id number] 02:49:00 Test Item Value Reference Range Interpretation Comments RBC UA (BEAKER) (test code = 519) < /HPF WBC UA (BEAKER) (test code = 520) 1 /HPF MUCUS (BEAKER) (test code = 1574) Many SQUAMOUS EPITHELIAL (BEAKER) (test 4 /HPF code = 516) URINALYSIS WITH MICROSCOPIC IF [id number] 02:46:00 Test Item Value Reference Range Interpretation [...] pg/mL 0-100 (test code = 700) TROPONIN [id number] 15:40:00 Test Item Value Reference Range Interpretation [...] acute neurological disease, and persistent tachyarrhythmia.BASIC METABOLIC [id number] 15:39:00 Test Item Value Reference Range Interpretation [...] m DATA TO CALCULA TE ESTIMATED GFR. [id number] 15:33:00 Test Item Value Reference Range Interpretation Comments MAGNESIUM (BEAKER) (test code = 2.0 mg/dL 1.6-2.6 627) RAD, CHEST, 1 VIEW, NON [id number] 15:29:00Reason for exam:->chest painIs the patient ?->UnknownFINAL REPORT TECHNIQUE: Frontal chest radiograph dated 01/01/2019. CLINICAL HISTORY: Chest pain COMPARISON STUDY: None IMPRESSION:Left-sided, dual-chamber defibrillator is in place. No pleural effusion or pneumothorax. Cardiomediastinal silhouette is normal in size. No pulmonaryedema. No fracture. Signed: Bg Zamudioeport Verified Date/Time: 01/01/2019 15:29:08 Reading Location: [facility] Radiology Reading Room [id number] 15:23:00 Test Item Value Reference Range Interpretation [...] for patients with mechanical heart valves. SCREEN, [id number] 15:23:00 Test Item Value Reference Range Interpretation Comments TEST URINE (BEAKER) (test Negative code = 583) CBC W/PLT COUNT & AUTO [id number] 15:15:00 Test Item Value Reference Range Interpretation [...] (BEAKER) (test code = 2801) CT, BRAIN/STROKE [id number] 14:33:00Reason for exam:->NUMBNESSReason for exam:->HEADACHEIs the patient [...] recommended for further evaluation. Signed: Latisha Youssef MDRthe [facility] Verified Date/Time: 01/01/2019 14:33:00 Reading Location: [facility] Radiology Reading Room
[2020-06-11] MEDS ORDERED: NA CHLORIDE 0.9% 1,000 ML ONE (22:57)
[2020-06-11] MEDS ORDERED: ACETAMINOPHEN 325 MG TABLET ONE (22:57)
[2020-06-11 23:29] LABS: Absolute Lymphocytes (CBC) 1.6 K/uL (0.7-4.9); Basophils % 0.6 % (0-1.3); Hematocrit 41.1 % (36.0-45.0); Lymphocytes % 26.4 % (15.3-44.8); MPV 10.2 fL (7.6-11.3); RBC Red Blood Cell Count 4.87 M/uL (3.86-4.86)
[2020-06-11 23:59] LABS: ALT/SGPT 59 U/L (12-78); AST/SGOT 54 U/L (15-37); Albumin 3.7 g/dL (3.4-5.0); Alkaline Phosphatase 118 U/L (45-117); BUN Blood Urea Nitrogen 12 mg/dL (7-18); Bicarbonate 27 mmol/L (21-32); Bilirubin Direct 0.2 mg/dL (0-0.2); Bilirubin Total 0.6 mg/dL (0.2-1.0); Glucose Level 89 mg/dL (74-106); Lipase 68 U/L (73-393); Magnesium 1.9 mg/dL (1.8-2.4); Sodium Level 141 mmol/L (136-145); Troponin (Emerg Dept Use Only) < 0.02 ng/mL (0.0-0.045)
[2020-06-12] LABS: Potassium 2.8 mmol/L (3.5-5.1)
[2020-06-12] MEDS ORDERED: POTASSIUM CL SA 10 MEQ TAB PO ONE (00:13)
[2020-06-12] MEDS ORDERED: POTASSIUM 25 MEQ EFFERV TAB ONE (00:17)
[2020-06-12] MEDS ORDERED: D5 0.9 NS 1,000 ML IV ONE ×2 (01:34→03:37)
[2020-06-12] MEDS ORDERED: THIAMINE 200 MG/2 ML INJ ONE (04:59)
[2020-06-12] MEDS ORDERED: FOLIC ACID 5 MG/ML VIAL ONE (05:02)
--- NOTE | 2020-06-12 05:55 | ER ---
Nurse's Notes [facility] Name: Vanessa Gonzalez Age: 44 yrs Sex: Female : 1975 Arrival Date: 06/11/2020 Time: 20:58 Bed 15 Private MD: Diagnosis: Headache;Abdominal Pain;Dehydration;Hypokalemia Presentation: 06/11 21:11 Chief complaint: Patient states: "TINGLING ON RIGHT SIDE OF HEAD. I HAD A HEADACHE AND ls4 TOOK A TYLENOL BUT THE TINGLING IS STILL THERE. " STARTED MORNING AT 3 AM. TOOK TYLENOL AND BACK TO SLEEP. PT STATES THAT SHE FAINTED LAST NIGHT, SHE STATES SHE WAS RUSHING TO BATHROOM AND SHE STARTED SEEING BLACK THEN SHE FAINTED. SHE THEN TOOK A SHOWER AND WENT TO BED. Coronavirus screen: At this time, the client does not indicate any symptoms associated with coronavirus-19. Ebola Screen: No symptoms or risks identified at this time. Initial Sepsis Screen: Does the patient meet any 2 criteria? No. Patient's initial sepsis screen is negative. Does the patient have a suspected source of infection? No. Patient's initial sepsis screen is negative. Risk Assessment: Do you want to hurt yourself or someone else? Patient reports no desire to harm self or others. Onset of symptoms is unknown. 21:11 Method Of Arrival: Ambulatory ls4 21:11 Acuity: ANDREW 4 ls4 Triage Assessment: 21:21 Headache History: The patient has had previous headaches and this one is similar to ls4 previous episodes. General: Appears in no apparent distress. Behavior is flat. Pain: Pain currently is 4 out of 10 on a pain scale. 21:30 Pain: Complains of pain in right occipital area and right side of the back of head and vc right frontal area Pain began gradually, 1 day ago. Also complains of no other associated symptoms. Neuro: Reports headache "TINGLING FEELING". Historical: - Allergies: 21:20 ANYTHING THAT PROLONGS QT; ls4 21:20 Ketorolac; ls4 21:20 Morphine; ls4 - Home Meds: 21:20 amlodipine 2.5 mg tab 1 tab once daily [Active]; Bystolic 5 mg Oral tab 1 tab once ls4 daily [Active]; Protonix 40 mg Oral TbEC once daily [Active]; Repatha Syringe 140 mg/mL subcutaneous syrg 1 mL every 2 wks [Active]; Xanax 0.5 mg Oral tab 1 tab daily [Active]; AIMOVIG IM [Active]; - PMHx: 21:20 Anxiety; Depression; GERD; High Cholesterol; Hypertension; Pacemaker; prolonged QT ls4 interval; TIA; - PSHx: 21:20 HERNIA REPAIR, LAP BAND REMOVAL AND GASTRIC BYPASS; DEFIBRILLATOR; ls4 - Immunization history:: Adult Immunizations up to date, Flu vaccine is up to date. - Social history:: Smoking status: Patient denies any tobacco usage or history of. Screenin:22 Abuse screen: Denies threats or abuse. Denies injuries from another. Nutritional ls4 screening: No deficits noted. Tuberculosis screening: No symptoms or risk factors identified. Fall Risk None identified. Assessment: 21:30 General: Appears in no apparent distress. uncomfortable, Behavior is calm, cooperative, vc appropriate for age. Pain: Complains of pain in right occipital area and right side of the back of head and right frontal area Pain does not radiate. Pain currently is 4 out of 10 on a pain scale. Quality of pain is described as tingling, Pain began gradually, Is continuous, Alleviated by nothing. Noted to be quiet/stoic. Neuro: Level of Consciousness is awake, obeys commands, lethargic, Oriented to person, place, time, situation, Appropriate for age. Cardiovascular: Denies lightheadedness, shortness of breath. Respiratory: Airway is patent Respiratory effort is even, unlabored, Respiratory pattern is regular, symmetrical. GI: No signs and/or symptoms were reported involving the gastrointestinal system. : No signs and/or symptoms were reported regarding the genitourinary system. 22:30 Reassessment: Patient and/or family updated on plan of care and expected duration. Pain vc level reassessed. Patient is alert, oriented x 3, equal unlabored respirations, skin warm/dry/pink. 23:30 Reassessment: Patient and/or family updated on plan of care and expected duration. Pain vc level reassessed. Patient laying with eyes closed, chest rising and falling equally. 06/12 00:30 Reassessment: Patient states she feels better while the fluids are infusing but feels vc "weird again" when the fluids finish. 01:30 Reassessment: Patient laying with eyes closed and blanket over head, no complaints or vc needs at this time. 02:30 Reassessment: No changes from previously documented assessment. vc 03:30 Reassessment: Patient and/or family updated on plan of care and expected duration. Pain vc level reassessed. Provider at bedside, instructed patients he would like her to drink some water, patient given two glasses of water, will continue have patient drink water. 04:30 Reassessment: Patient and/or family updated on plan of care and expected duration. Pain vc level reassessed. 05:30 Reassessment: Patient and/or family updated on plan of care and expected duration. Pain vc level reassessed. Patient states symptoms have improved. 06:45 Reassessment: Patient and/or family updated on plan of care and expected duration. Pain vc level reassessed. Patient is alert, oriented x 3, equal unlabored respirations, skin warm/dry/pink. Patient states symptoms have improved. Vital Signs: 06/11 21:11 BP 139 / 92; Pulse 62; Resp 16; Temp 97.9; Pulse Ox 100% on R/A; Weight 83.46 kg; ls4 Height 5 ft. 2 in. (157.48 cm); Pain 4/10; 22:00 BP 124 / 82; Pulse 60; Resp 13; Pulse Ox 99% on R/A; vc 23:00 BP 117 / 74; Pulse 59; Resp 15; Pulse Ox 100% on R/A; vc 06/12 01:00 BP 111 / 85; Pulse 58; Resp 14; Pulse Ox 100% on R/A; vc 02:20 BP 105 / 71; Pulse 60; Resp 14 S; Pulse Ox 98% on R/A; vc 03:22 BP 120 / 79; Pulse 60; Resp 15; Pulse Ox 100% on R/A; vc 04:00 BP 102 / 68; Pulse 60; Resp 14; Pulse Ox 100% on R/A; vc 05:00 BP 106 / 58; Pulse 60; Resp 15; Pulse Ox 100% on R/A; vc 06:00 BP 101 / 69; Pulse 61; Resp 15; Pulse Ox 100% on R/A; vc 06/11 21:11 Body Mass Index 33.65 (83.46 kg, 157.48 cm) ls4 ED Course: 06/11 20:58 Patient arrived in ED. cf2 21:17 Triage completed. ls4 21:22 Patient has correct armband on for positive identification. Bed in low position. Call ls4 light in reach. Side rails up X 1. Placed in gown. silk snapper on. Pulse ox on. Sitter at bedside. 21:22 No provider procedures requiring assistance completed. ls4 21:30 Arm band placed on. vc 21:30 EKG completed in triage. Results shown to MD. vc 21:50 hCaranjit Morrow RN is Primary Nurse. rv 21:51 Willme Mac MD is Attending Physician. mh7 21:52 Primary Nurse role handed off by Charanjit Morrow, MARIA R vc 21:52 Yohana Roman RN is Primary Nurse. vc 23:33 CT Head Brain wo Cont In Process Unspecified. EDMS 23:33 CT Abd/Pelvis - Without Contrast In Process Unspecified. EDMS 06/12 01:36 Chest Single View XRAY In Process Unspecified. EDMS 06:44 IV discontinued, intact, bleeding controlled, No redness/swelling at site. Pressure vc dressing applied. Administered Medications: 06/11 23:15 Drug: Tylenol 325 mg Route: PO; vc 06/12 00:30 Follow up: Response: No adverse reaction; Pain is decreased vc 06/11 23:52 Drug: NS 0.9% 1000 ml Route: IV; Rate: 1000 ml; Site: right forearm; vc 06/12 01:00 Follow up: IV Status: Completed infusion; IV Intake: 1000ml vc 00:10 Drug: Potassium Effervescent Tablet 50 mEq Route: PO; vc 03:32 Follow up: Response: No adverse reaction vc 01:30 Drug: D5-NS 1000 ml Route: IV; Rate: per protocol; Site: right wrist; vc 02:30 Follow up: IV Status: Completed infusion; IV Intake: 1000ml vc 03:27 Drug: D5-NS 1000 ml Route: IV; Rate: bolus; Site: right forearm; vc 04:25 Follow up: IV Status: Completed infusion; IV Intake: 1000ml vc 04:52 CANCELLED (Duplicate Order): foLIC Acid 1 mg IVPB once vc 04:59 Drug: foLIC Acid 1 mg Route: IVPB; Site: right antecubital; vc 06:45 Follow up: IV Status: Completed infusion vc 04:59 Drug: Thiamine 100 mg Route: IV; Rate: bolus; Site: right antecubital; vc 06:45 Follow up: IV Status: Completed infusion vc Intake: 01:00 IV: 1000ml; Total: 1000ml. vc 02:30 IV: 1000ml; Total: 2000ml. vc 04:25 IV: 1000ml; Total: 3000ml. vc Outcome: 05:55 Discharge ordered by MD. aguilar 06:44 Discharged to home ambulatory. vc 06:44 Condition: improved 06:44 Discharge instructions given to patient, Instructed on discharge instructions, follow up and referral plans. medication usage, Demonstrated understanding of instructions, follow-up care, medications, Prescriptions given X 1. 06:46 Patient left the ED. vc Signatures: Dispatcher [employer] EDCharanjit Russell RN RN Juju Salvador RN RN ls4 Vikram Sanchez cf2 Yohana Roman RN RN vc Holmes, Maurice, MD MD 7
--- NOTE | 2020-06-12 05:55 | EDPHYS ---
Physician Documentation [facility] Name: Vanessa Gonzalez Age: 44 yrs Sex: Female : 1975 Arrival Date: 06/11/2020 Time: 20:58 Bed 15 Private MD: ED Physician Willem Mac HPI: 06/11 23:02 This 44 yrs old Female presents to ER via Ambulatory with complaints of mh7 Headache, Doesn't Feel Right. 23:05 The patient complains of pain to the right frontal area, right side of the back of head mh7 and right occipital area. The patient describes the headache as intermittent, throbbing, waxing and waning. Onset: The symptoms/episode began/occurred yesterday. Associated signs and symptoms: Pertinent positives: dizziness, Pertinent negatives: altered mental status, fever, malaise, nausea, neck stiffness, paresthesias, Photophobia rash, sinus congestion, sinus tenderness, vision changes, vision loss, vomiting, weakness, vertigo. Severity of symptoms: At its worst the pain was moderate, earlier today, in the emergency department the pain has improved, moderately. Headache History: The patient has had previous headaches and this one is similar to previous episodes. The symptoms are alleviated by over the counter pain medication, Tylenol, the symptoms are aggravated by movement, noise, stress. The patient has experienced similar episodes in the past, multiple times. Patient states that she has had upper abdominal pain for 2 weeks and has not been eating much since having gastric bypass surgery last month. She states that she started having migraine flare up since yesterday morning. She has had some dizziness and a brief episode of passing out for a few seconds. She denies any chest pain, fever, nausea, vomiting, neck pain, SOB, cough, numbness/tingling, or weakness.. Historical: - Allergies: 21:20 ANYTHING THAT PROLONGS QT; ls4 21:20 Ketorolac; ls4 21:20 Morphine; ls4 - Home Meds: 21:20 amlodipine 2.5 mg tab 1 tab once daily [Active]; Bystolic 5 mg Oral tab 1 tab once ls4 daily [Active]; Protonix 40 mg Oral TbEC once daily [Active]; Repatha Syringe 140 mg/mL subcutaneous syrg 1 mL every 2 wks [Active]; Xanax 0.5 mg Oral tab 1 tab daily [Active]; AIMOVIG IM [Active]; - PMHx: 21:20 Anxiety; Depression; GERD; High Cholesterol; Hypertension; Pacemaker; prolonged QT ls4 interval; TIA; - PSHx: 21:20 HERNIA REPAIR, LAP BAND REMOVAL AND GASTRIC BYPASS; DEFIBRILLATOR; ls4 - Immunization history:: Adult Immunizations up to date, Flu vaccine is up to date. - Social history:: Smoking status: Patient denies any tobacco usage or history of. ROS: 23:05 Constitutional: Negative for fever, chills, and weight loss, Eyes: Negative for injury, mh7 pain, redness, and discharge, ENT: Negative for injury, pain, and discharge, Neck: Negative for injury, pain, and swelling, Cardiovascular: Negative for chest pain, palpitations, and edema, Respiratory: Negative for shortness of breath, cough, wheezing, and pleuritic chest pain, Back: Negative for injury and pain, : Negative for injury, bleeding, discharge, and swelling, MS/Extremity: Negative for injury and deformity, Skin: Negative for injury, rash, and discoloration, Psych: Negative for depression, anxiety, suicide ideation, homicidal ideation, and hallucinations, Allergy/Immunology: Negative for hives, rash, and allergies, Endocrine: Negative for neck swelling, polydipsia, polyuria, polyphagia, and marked weight changes, Hematologic/Lymphatic: Negative for swollen nodes, abnormal bleeding, and unusual bruising. Exam: 23:05 Constitutional: This is a well developed, well nourished patient who is awake, alert, mh7 and in no acute distress. Eyes: Pupils equal round and reactive to light, extra-ocular motions intact. Lids and lashes normal. Conjunctiva and sclera are non-icteric and not injected. Cornea within normal limits. Periorbital areas with no swelling, redness, or edema. 23:05 Head/Face: Normocephalic, atraumatic. ENT: Nares patent. No nasal discharge, no septal abnormalities noted. Tympanic membranes are normal and external auditory canals are clear. Oropharynx with no redness, swelling, or masses, exudates, or evidence of obstruction, uvula midline. Mucous membranes moist. Neck: Trachea midline, no thyromegaly or masses palpated, and no cervical lymphadenopathy. Supple, full range of motion without nuchal rigidity, or vertebral point tenderness. No Meningismus. Chest/axilla: Normal chest wall appearance and motion. Nontender with no deformity. No lesions are appreciated. Cardiovascular: Regular rate and rhythm with a normal S1 and S2. No gallops, murmurs, or rubs. Normal PMI, no JVD. No pulse deficits. Respiratory: Lungs have equal breath sounds bilaterally, clear to auscultation and percussion. No rales, rhonchi or wheezes noted. No increased work of breathing, no retractions or nasal flaring. 23:05 Back: No spinal tenderness. No costovertebral tenderness. Full range of motion. Skin: Warm, dry with normal turgor. Normal color with no rashes, no lesions, and no evidence of cellulitis. MS/ Extremity: Pulses equal, no cyanosis. Neurovascular intact. Full, normal range of motion. Neuro: Awake and alert, GCS 15, oriented to person, place, time, and situation. Cranial nerves II-XII grossly intact. Motor strength 5/5 in all extremities. Sensory grossly intact. Cerebellar exam normal. Normal gait. Psych: Awake, alert, with orientation to person, place and time. Behavior, mood, and affect are within normal limits. 23:05 Abdomen/GI: Inspection: abdomen appears normal, Bowel sounds: normal, in all quadrants, Palpation: moderate abdominal tenderness, in the epigastric area, Rectal exam: the exam is deferred, because of patient request, Indicators: McBurney's point is not tender, Arias's sign is negative, Rovsing's sign is negative, Obturator sign is negative, Psoas sign is negative, Liver: no appreciated palpable abnormalities, Hernia: not appreciated. Vital Signs: 21:11 BP 139 / 92; Pulse 62; Resp 16; Temp 97.9; Pulse Ox 100% on R/A; Weight 83.46 kg; ls4 Height 5 ft. 2 in. (157.48 cm); Pain 4/10; 22:00 BP 124 / 82; Pulse 60; Resp 13; Pulse Ox 99% on R/A; vc 23:00 BP 117 / 74; Pulse 59; Resp 15; Pulse Ox 100% on R/A; vc 06/12 01:00 BP 111 / 85; Pulse 58; Resp 14; Pulse Ox 100% on R/A; vc 02:20 BP 105 / 71; Pulse 60; Resp 14 S; Pulse Ox 98% on R/A; vc 03:22 BP 120 / 79; Pulse 60; Resp 15; Pulse Ox 100% on R/A; vc 04:00 BP 102 / 68; Pulse 60; Resp 14; Pulse Ox 100% on R/A; vc 05:00 BP 106 / 58; Pulse 60; Resp 15; Pulse Ox 100% on R/A; vc 06:00 BP 101 / 69; Pulse 61; Resp 15; Pulse Ox 100% on R/A; vc 06/11 21:11 Body Mass Index 33.65 (83.46 kg, 157.48 cm) ls4 MDM: 06/11 22:44 Patient medically screened. 06/12 05:52 Differential diagnosis: cluster headache, hypoglycemia, hyponatremia, migraine, tension 7 headache, Abdominal Pain, Dehydration. Data reviewed: vital signs, nurses notes, lab test result(s), CBC, electrolytes, urinalysis, EKG, radiologic studies, CT scan, plain films. Data interpreted: Pulse oximetry: on room air is 100 %. Interpretation: normal. Counseling: I had a detailed discussion with the patient and/or guardian regarding: the historical points, exam findings, and any diagnostic results supporting the discharge/admit diagnosis, lab results, radiology results, the need for outpatient follow up, to return to the emergency department if symptoms worsen or persist or if there are any questions or concerns that arise at home. Response to treatment: the patient's symptoms have resolved after treatment, the patient's blood pressure is in an acceptable range, mental status has returned to baseline, the patient no longer shows bradycardia, the patient is not short of breath, the patient is not tachycardic, the patient's pain is gone, the patient's temperature has normalized. 06:56 Response to treatment: the patient is now symptom free. 06/11 22:35 Order name: Basic Metabolic Panel; Complete Time: : [facility] 06/11 22:35 Order name: CBC with Diff; Complete Time: : 06/11 22:35 Order name: Hepatic Function; Complete Time: : 06/11 22:35 Order name: Lipase; Complete Time: : [facility] 06/11 22:35 Order name: Magnesium; Complete Time: 01:12 [facility] 06/11 22:35 Order name: Troponin (emerg Dept Use Only); Complete Time: 01:12 [facility] 06/11 22:35 Order name: CT Abd/Pelvis - Without Contrast [facility] 06/11 22:35 Order name: CT Head Brain wo Cont [facility] 06/12 01:17 Order name: Chest Single View XRAY [facility] 06/11 22:35 Order name: IV Saline Lock; Complete Time: 23:16 [facility] 06/11 22:35 Order name: Labs collected and sent; Complete Time: 23:16 [facility] 06/11 22:35 Order name: Urine Dipstick-Ancillary (obtain specimen); Complete Time: 23:16 [facility] 06/11 22:35 Order name: EKG - Nurse/Tech; Complete Time: 22:42 [facility] Administered Medications: 06/11 23:15 Drug: Tylenol 325 mg Route: PO; vc 06/12 00:30 Follow up: Response: No adverse reaction; Pain is decreased vc 06/11 23:52 Drug: NS 0.9% 1000 ml Route: IV; Rate: 1000 ml; Site: right forearm; vc 06/12 01:00 Follow up: IV Status: Completed infusion; IV Intake: 1000ml vc 00:10 Drug: Potassium Effervescent Tablet 50 mEq Route: PO; vc 03:32 Follow up: Response: No adverse reaction vc 01:30 Drug: D5-NS 1000 ml Route: IV; Rate: per protocol; Site: right wrist; vc 02:30 Follow up: IV Status: Completed infusion; IV Intake: 1000ml vc 03:27 Drug: D5-NS 1000 ml Route: IV; Rate: bolus; Site: right forearm; vc 04:25 Follow up: IV Status: Completed infusion; IV Intake: 1000ml vc 04:52 CANCELLED (Duplicate Order): foLIC Acid 1 mg IVPB once vc 04:59 Drug: foLIC Acid 1 mg Route: IVPB; Site: right antecubital; vc 06:45 Follow up: IV Status: Completed infusion vc 04:59 Drug: Thiamine 100 mg Route: IV; Rate: bolus; Site: right antecubital; vc 06:45 Follow up: IV Status: Completed infusion vc Disposition: 06:56 Co-signature as Attending Physician, Willem Mac MD. [facility] Disposition: 06/12/20 05:55 Discharged to Home. Impression: Headache, Abdominal Pain, Dehydration, Hypokalemia. - Condition is Stable. - Discharge Instructions: Abdominal Pain, Adult, [id number], Dehydration, Adult, Yxmk-[id number], General Headache Without Cause, [id number]-Vvoi, Hypokalemia. - Prescriptions for Bentyl 20 mg Oral Tablet - take 1 tablet by ORAL route every 6 hours As needed; 20 tablet. - Medication Reconciliation Form, Thank You Letter, Antibiotic Education, Prescription Opioid Use form. - Follow up: Private Physician; When: 1 - 2 days; Reason: Worsening of condition, Recheck today's complaints, Continuance of care, Re-evaluation by your physician. - Problem is an ongoing problem. - Symptoms have improved. Signatures: Dispatcher [employer] EDMS Juju Childers RN RN ls4 Yohana Roman RN RN vc Willem Mac MD MD mh7 Corrections: (The following items were deleted from the chart) 06/11 23:16 23:02 The patient complains of pain to the forehead, [facility]7 06/12 04:52 04:47 foLIC Acid 1 mg IVPB once ordered. vc vc 06:46 05:55 06/12/2020 05:55 Discharged to Home. Impression: Headache; Abdominal Pain; vc Dehydration; Hypokalemia. Condition is Stable. Forms are Medication Reconciliation Form, Thank You Letter, Antibiotic Education, Prescription Opioid Use. Follow up: Private Physician; When: 1 - 2 days; Reason: Worsening of condition, Recheck today's complaints, Continuance of care, Re-evaluation by your physician. Problem is an ongoing problem. Symptoms have improved. 7
--- NOTE | 2020-06-12 08:10 | RAD REPORT ---
EXAM DESCRIPTION: George Single View06/12/2020 1:36 am CLINICAL HISTORY: Hypertension/syncope COMPARISON: May 24, 2020 FINDINGS: The lungs appear clear of acute infiltrate. The heart is mildly enlarged. Pacemaker leads are in place. IMPRESSION: No acute abnormalities displayed
--- NOTE | 2020-06-12 11:18 | RAD REPORT ---
EXAM DESCRIPTION: CT - Abdomen Pelvis Wo Contrast - 06/12/2020 12:40 am CLINICAL HISTORY: 44-year-old female with abdominal pain. COMPARISON: No prior imaging is available for comparison. TECHNIQUE: CT of the abdomen and pelvis was performed without intravenous or oral contrast. Multipla isabelle reformatted images were provided. This exam was performed according to our departmental dose opti mization program which includes use of automated exposure control, adjustment of the mA and/or kV acc ording to patient size and/or use of iterative reconstruction technique. FINDINGS: Evaluation of solid organ pathology is limited secondary to lack of intravenous contrast. Within these limitations, the following observations are made. Chest: Evaluation through the lung bases reveals no focal opacity, pleural effusion or pneumothorax. Heart size is within normal limits. No pericardial effusion. Postoperative changes of the gastric bod y identified with appearance of gastric bypass surgery. RIGHT paracentral ventral subcutaneous scarri ng. Trace stranding is identified at the level of the gastroesophageal junction without discrete wall thickening raising the possibility of inflammation or scarring. Abdomen and pelvis: The liver, spleen, bilateral kidneys and bilateral adrenal glands are within norm al limits. Diffuse fatty replacement of the pancreas. Surgical clips at the level of the gallbladder fossa status post cholecystectomy. The vessels are normal in caliber. No abdominopelvic lymph nodes are noted to be pathologically enlarged by CT measurement criteria. The bowel is within normal limits without abnormal bowel wall thickness or bowel dilation. Diverticul ar disease without findings to suggest diverticulitis. No free air. No free abdominopelvic fluid collections. The appendix is within normal limits. Multifoc al appendicolith present within the appendix. Thickened appearance of the bladder wall may be secondary to incomplete distention, however can be se en in the setting of infectious or inflammatory process. Please correlate with laboratory values. The osseous structures are within normal limits. Small fat-containing umbilical hernia. IMPRESSION: 1. No specific acute intra-abdominal findings are noted to suggest etiology of the patie nt's abdominal pain. 2. Diverticular disease without findings to suggest diverticulitis. 3. Trace stranding is identified at the level of the gastroesophageal junction without discrete wall thickening raising the possibility of inflammation or scarring. If there is clinical concern for leak , upper GI may be considered. However, no discrete organizing fluid collections are identified. 4. Thickened appearance of the bladder wall may be secondary to incomplete distention, however can be seen in the setting of infectious or inflammatory process. Please correlate with laboratory values. Electronically signed by: Sara Llanos MD 06/11/2020 11:58 PM CDT Due to temporary technical issues with the PACS/Fluency reporting system, reports are being signed by the in house radiologist without review as a courtesy to ensure prompt reporting. The interpreting r adiologist is fully responsible for the content of the report.
--- NOTE | 2020-06-12 11:20 | RAD REPORT ---
EXAM DESCRIPTION: CT - Head Brain Wo Cont - 06/12/2020 12:40 am CLINICAL HISTORY: HEADACHE COMPARISON: None. TECHNIQUE: Axial unenhanced CT imaging of the brain. Reformatted coronal and sagittal images obtaine d. This examination was performed according to our departmental dose optimization program, which include s automated exposure control, adjustment of the mA and/or kV according to patient size and/or use of iterative reconstruction technique. FINDINGS: Normal ventricle size and contour. Extra-axial fluid spaces appear normal. Mcneil-white lizabeth er differentiation is preserved. There is no edema, hemorrhage, mass, or midline shift. No evidence o f acute infarction. Normal cerebellum and vermis. Fourth ventricle is midline. Prepontine cisterns ar e not effaced. Normal sella contents. Intraorbital contents appear normal. Clear paranasal sinuses and mastoid air cells. Intact skull base and calvarium. Normal scalp soft tissues. IMPRESSION: 1. Negative CT brain. Electronically signed by: Joana Haas DO 06/11/2020 11:50 PM CDT Due to temporary technical issues with the PACS/Fluency reporting system, reports are being signed by the in house radiologist without review as a courtesy to ensure prompt reporting. The interpreting r adiologist is fully responsible for the content of the report.
[2020-06-15 04:44] VITALS: TEMP 97.9
[2020-06-15 04:50] VITALS: O2SAT 100
[2020-06-15 04:54] VITALS: BP 101/69
== END 2020-06-12 06:46 | disposition home or self-care (01) ==
LOC: ER 20:50
DX: E86.0 Dehydration (principal); E87.6 Hypokalemia; R10.9 Unspecified abdominal pain; I10 Essential (primary) hypertension; Z95.810 Presence of automatic (implantable) cardiac defibrillator; E78.00 Pure hypercholesterolemia, unspecified; F41.8 Other specified anxiety disorders; Z88.5 Allergy status to narcotic agent; Z88.8 Allergy status to other drugs, medicaments and biological substances; Z98.84 Bariatric surgery status
CPT/HCPCS: 96365; 96361; 96368; 93005; 85025; 80048; 36415; 83735; 80076; 84484; 83690; 70450; 74176; 71045; 99285; 96366; J3411; J7042 ×2; J7030

== ENCOUNTER 2020-06-16 09:50 | Emergency (ER) | payer OTHER ==
--- OUTSIDE RECORDS SUMMARY | 2020-06-16 09:52 | XMS REPORT | Clinical Summary ---
:1975 Author Organization [facility] Address [address] [place] [id number] Care Team Providers Name Role Phone Asked, [...] INFLUENZA VACCINE 07/13/2020 Implants Implanted Type Area Arts And Crafts Instructor Device Shelf Model / Identifier Expiration Serial / Date Lot Joshuaquinton Guerra - [id number] - [id number] Cardiac N/A: LAZARA LEI 01/25/2020 [id number] / Implanted: Qty: 1 on 10/28/2018 by Yogesh Contreras Jr., M D at [facility] Pacemaker N/A [employer] [id number] / Generators [id number] S Lead [id number] Active Sc Sprint 55 Cm - [id number] Cardiac Pac ing N/A: [employer] CRM 07/10/2020 [id number] / Implanted: 10/28/[address] [facility] (Quantity not on file) Manju ds or N/A [employer] [id number] / Electrodes or [id number] Accessories Lead, Bipolar Active Fixation Atrial Zohaib roid Eluting 45 Cm Capsure Fix Novus System - [id number] Cardiac Pacing N/A: [employer] [facility] [id number] / Implanted: 10/28/[address] [facility] (Quantity not on file) Manju ds or N/A [employer] [id number] / Electrodes or [id number] Accessories Results Not on fileafter 06/16/2019 Advance Directives For more information, please contact: [phone] Type Date Recorded Patient Architectural Practice Manager Explanati on Advance Directives, Living Will and Medical Power of Certified Substance Abuse Counselor
--- OUTSIDE RECORDS SUMMARY | 2020-06-16 09:52 | XMS REPORT | Clinical Summary ---
:1975 Author Organization [facility] Address [address] [place] [address] Care Team Providers Name Role Phone Alison [...] 04/26/2020 Anesthesia Event Fortunato Palma NP 04/26/2020 [facility] General Internal Hemanth, Morbid ob esity (HCC) - Encounter Medicine Dana 04/27/2020 MD Darlene 04/25/2020 Travel 04/18/2020 Hospital Pre-Admission Testing Hemanth, Morb id obesity ([facility]) Encounter Dana Colon MD 04/18/2020 Orders Only General Internal Medicine 04/18/2020 Travel 08/26/2019 [facility] Radiology [facility], Bariatric surge ry status; Encounter Darian Luciano MD Abdominal pain, LUQ; Gastroesophagea l reflux disease, esophagitis presence not specified; Pre-operative c learance 08/26/2019 Outside Orders Central Scheduling [facility], [facility] ic surgery status (Primary Dx); Darina Luciano MD Abdominal pain, LUQ; Gastroesophagea l reflux disease, esophagitis presence not specified; Pre-operative c learance 07/29/2019 Surgery Gastroenterology Maya Knowles MOTILITY MD Tian 07/29/2019 [facility] Gastroenterology Maya Knowles Encounter MD Tian 07/23/2019 Anesthesia Event Concha Charles CRNA 07/23/2019 Surgery Gastroenterology Ang, UPPER ENDOS COPY,BIOPSY Darian Luciano MD 07/23/2019 [facility] Gastroenterology Ang, Encounter Darian Luciano MD 07/21/2019 Hospital Pre-Admission Testing Encounter after 06/16/2019 Social History Tobacco Use Types Packs/Day Years [...] 522 ms QTC Calculation(Bazett) 525 ms P Bally 36 degrees R Bally 7 degrees T Bally 5 degrees Normal sinus rhythm Prolonged QT [...] 482 ms QTC Calculation(Bazett) 485 ms P Bally -8 degrees R Bally 18 degrees T Bally 9 degrees Atrial-paced rhythm with pro longed [...] 2:40 PM Bariatric surgery 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 RBC 4.16 3.93 - 5.22 M/L [facility] Hemoglobin 11.6 11.2 - 15.7 GM/DL [facility] Hematocrit 37.2 34.1 - 44.9 % [facility] MCV 89.4 79.4 - 94.8 fL [facility] MCH 27.9 25.6 - 32.2 pg [facility] MCHC 31.2 (L) 32.2 - 35.5 GM/DL [facility] RDW 13.9 11.7 - 14.4 % [facility] Platelets 206 150 - 450 K/CU MM [facility] MPV 10.8 9.4 - 12.[address] [facility] nRBC 0 0 [facility] 0 /[address] [facility] % Neutros 81 % [facility] % Lymphs 10 % [facility] % Monos 8 % [facility] % Eos 0 % [facility] % Baso 0 % [facility] # Neutros 9.33 (H) 1.56 - 6.13 K/L [facility] # Lymphs 1.19 1.18 - 3.74 K/L [facility] # Monos 0.98 (H) 0.24 - 0.36 K/L [facility] # Eos 0.00 (L) 0.04 - 0.36 K/L [facility] # Baso 0.04 0.01 - 0.08 K/L [facility] Immature Granulocytes-Relative 1 0 - 1 % C HI [facility] Specimen Blood Performing Organization Address City/State/Zipcode Phone Number [facility] [address] [place] [address] CENTER Basic metabolic panel (04/27/2020 4:47 AM CDT) Sodium 143 136 - 145 meq/L [facility] Potassium 4.1 3.5 - 5.1 meq/L [facility] Chloride 115 (H) 98 - 107 meq/L [facility] CO2 25 22 - 29 meq/L [facility] BUN 9 7 - 21 mg/dL [facility] Creatinine 0.76 0.57 - 1.25 mg/dL [facility] Glucose 109 (H) 70 - 105 mg/dL [facility] Calcium 8.2 (L) 8.4 - 10.2 mg/dL [facility] EGFR 83Comment: ESTIMATED GFR IS mL/min/1.73 sq m [facility] NOT ACCURATE CREATININE [facility] CLEARANCE IN PREDICTING GLOMERULAR FILTRATION RATE. ESTIMATED GFR IS NOT APPLICABLE FOR DIALYSIS PATIENTS. Specimen Blood Narrative Performed At Tax Manager ID - PIAYA L [facility] Performing Organization Address City/State/Zipcode Phone Number [facility] [address] [place] [address] CENTER ECG 12 lead (04/26/2020 8:20 PM CDT)Only the most recent of2 resultswithin the time period is included. Specimen Narrative Performed At Ventricular Rate 61 BPM GE MUSE Atrial Rate 61 BPM P-R Interval 174 ms QRS Duration 90 ms Q-T Interval 522 ms QTC Calculation(Bazett) 525 ms P Bally 36 degrees R Bally 7 degrees T Bally 5 degrees Normal sinus rhythm Prolonged QT Abnormal ECG When compared with ECG of 18-APR-2020 12 :20, Sinus rhythm has replaced Electronic atr ial pacemaker Confirmed by MD Yuan Roberto ([id number]) on 04/27 7:26:23 AM Procedure Note Interface, External Ris In - 04/27/2020 7:26 AM CDT Ventricular Rate 61 BPM Atrial Rate 61 BPM P-R Interval 174 ms QRS Duration 90 ms Q-T Interval 522 ms QTC Calculation(Bazett) 525 ms P Bally 36 degrees R Bally 7 degrees T Bally 5 degrees Normal sinus rhythm Prolonged QT Abnormal ECG When compared with ECG of 18-APR-2020 12 :20, Sinus rhythm has replaced Electronic atr ial pacemaker Confirmed by MD Yuan Roberto ([id number]) on 04/27/2020 7:26:23 AM Performing Organization Address City/[facility]/Rustcode Phone Number GE MUSE Tissue Exam (04/26/2020 10:59 AM CDT)Only the most recent of2 resultswithin the time period is included. Case Report Surgical Pathology Report Case: [id number] [facility] Authorizing Provider:Evelia Bhardwajected: 04/26/2020 10:59 AM [facility] MD Darlene Ordering Location: [facility] PERIOPERATIVE Received:04/26/2020 02:14 PM SERVICES Pathologist: Lea Santillan MD Specimen:Explant, La p Gastric Band for I and D DIAGNOSIS A. GASTRIC, GASTRIC BAND, REMOVAL: [facility] - GASTRIC BAND IDENTIFIED (GROSS ONLY) [facility] Signing Pathologist Direct Phone Line: CPT Code(s) 575[address] [facility] CLINICAL HISTORY Morbid obesity [facility] Other hyperlipidemia [facility] Obstructive sleep apnea Heart disease, unspecified SPECIMEN SOURCE Gastric [facility] GROSS DESCRIPTION A. Received fresh labeled wi th the patients name, medical record number and "explant" is an Allergan brand gastric band measuring 5.5 x 5.5 x 2 cm with a 13 cm in length by 0.3 cm in diameter white tu [facility] be. Also received is a circ ular peters Allergan brand Port-A-Cath measuring 3 cm in diameter and 0.9 cm in height. There is a 16.5 cm in length by 0.3 cm in diameter attached catheter. The Port-A-Cath i [facility] s inscribed with "lot number : [id number] part number: [id number] full range: 0-10 cc." A gross photograph is taken. No sections are submitted-gross only. KEVIN Sigala, PA ([facility]) MICROSCOPIC DESCRIPTION N/A [facility] Specimen Tissue - Explant Performing Organization Address City/State/Zipcode Phone Number [facility] [address] [place] [address] CENTER TRANSFUSION SERVICE REPORT - SCAN (04/19/2020 6:04 PM CDT) Narrative Performed At This result has an attachment that is no t available. Type and screen, automated (04/18/2020 12:18 PM CDT) ABO/RH AUTOMATED (BEAKER) A POSITIVE [facility] Ab Scrn NEGATIVE [facility] Specimen Blood Performing Organization Address City/[facility]/Zipcode Phone Number [facility] [address] [place] [address] Hemoglobin (04/18/2020 12:18 PM CDT) Hemoglobin 13.9 11.2 - 15.7 GM/DL [facility] Specimen Blood Narrative Performed At Tax Manager ID - [id number] [facility] Performing Organization Address City/[facility]/Zipcode Phone Number [facility] [address] [place] [address] CENTER BUN and Creatinine (04/18/2020 12:17 PM CDT) BUN 22 (H) 7 - 21 mg/dL [facility] ER Creatinine 0.85 0.57 - 1.25 mg/dL [facility] ER BUN/Creatinine Ratio 25.8824Comment: For a [facility] normal individual on a [facility] normal diet, the reference interval for the mass ratio ranges between 12:1 and 20:1 (BUN in mg/dL/creatinine in mg/dL) EGFR 73Comment: ESTIMATED GFR mL/min/1.73 sq m [facility] IS NOT ACCURATE [facility] CREATININE CLEARANCE IN PREDICTING GLOMERULAR FILTRATION RATE. ESTIMATED GFR IS NOT APPLICABLE FOR DIALYSIS PATIENTS. Specimen Blood Narrative Performed At Tax Manager ID - PIAYA L [facility] Performing Organization Address City/[facility]/Zipcode Phone Number [facility] [address] [place] [address] CENTER Electrolytes (04/18/2020 12:17 PM CDT) Sodium 137 136 - 145 meq/L [facility] Potassium 4.2 3.5 - 5.1 meq/L [facility] Chloride 103 98 - 107 meq/L [facility] CO2 26 22 - 29 meq/L [facility] Specimen Blood Narrative Performed At Tax Manager ID - PIAYA L [facility] Performing Organization Address City/State/Zipcode Phone Number [facility] [address] [place] [address] CENTER XR chest 2 views (08/26/2019 2:40 PM G[employer] POWERPLANT MECHANIC) Specimen Narrative Performed At FINAL REPORT GE RIS History provided: Bariatric surgery, abd ominal pain CHEST PA AND LATERAL COMPARISON STUDY: 01/01/2019 Heart size normal. Dual lead left subcla vian ICD. Lungs clear and vascularity normal. Signed: Jc Tobar MD Report Verified Date/Time:08/26/2019 15:35:48 Reading Location: [facility] Diagnostic Imagi ng Reading Room - [facility] F1 [id number] Procedure Note Interface, External Ris In - 08/26/2019 3:38 PM G[employer] POWERPLANT MECHANIC FINAL REPORT History provided: Bariatric surgery, abd ominal pain CHEST PA AND LATERAL COMPARISON STUDY: 01/01/2019 Heart size normal. Dual lead left subcla vian ICD. Lungs clear and vascularity normal. Signed: Jc Tobar MD Report Verified Date/Time: 08/26/2019 1 5:35:48 Reading Location: [facility] Diagnostic Imagi ng Reading Room - [facility] F1 1.310.12 Performing Organization Address City/State/Zipcode Phone Number GE RIS REPORT OF PROCEDURE - ENDOSCOPY URL (07/23/2019 7:31 AM CDT) Narrative Performed At This result has an attachment that is no t available. after 06/16/2019 Insurance Payer Benefit Plan / Group Subscriber ID Type Phone A ddress [employer] - MGD CARE [employer] HMO/POS/OPEN ACCESS xxxxxxxxxxx HMO/POS Advance Directives For more information, please contact:[address] [phone] Code Status Date Activated Date Inactivated Comments Full Code 04/26/2020 5:41 AM 04/27/2020 4:02 PM This code status was determined by: Patient Full Code 07/23/2019 5:59 AM 07/23/2019 10:56 AM This code status was determined by: Patient
--- OUTSIDE RECORDS SUMMARY | 2020-06-16 09:53 | XMS REPORT | Continuity of Care Document ---
:1975 Author Organization Formerly [facility] t Address [address] [place] [address] Dr. Thakkar [address] [place] [id number] Care Team Providers Name Role Phone Asked, Pcp Primary Care Physician Unavailable Nilda Perla MD Attending Clinician Mustapha Pate Attending Clinician Sal Perla MD Attending Clinician [phone] Devon Palma NP Attending Clinician SAL [...] Date S raúl [employer] - MGD xxxxxxxxxxx [facility] - Medical HMO/POS/OPEN Center ACCESSxxxxxxxxx xxHMO/POS Problems [...] Date Quantity Comments Source History SDOH Alcohol [facility] - Std Drinks [facility] Center History SDOH Alcohol [facility] - Binge [facility] Sex Assigned At [facility] History SDOH Alcohol 2019-07-21 2019-07-[address] [facility] - Frequency 00:00:00 00:00:00 Medical Center Smoking Status Start Date Stop Date Source Never smoker [facility] edical Guy Medications Ordered Filled Start Stop Current Ordering Indication Dosage Frequency Signature Comments Components Source Medication Medication Date Date Medication? Clinician (SIG) Name Name evolocumab Yes 140mg Q14D Inject [address] (REPATHA 7-16 [facility] - SYRINGE) 10:06: subcutaneo Med ical 140 mg/mL 44 usly every Cent er Syrg 14 (fourteen) days . ergocalcife 2020-0 Yes 31081K Q7D Take [facility] rol 7-16 50,000 [...] [facility] - 5 MG tablet 13:48: daily. [place] [id number] Center amLODIPine 2019- No 10mg QD Take [...] blood 2020-04-27 10:59:00 98 mm[Hg] [facility] Diastolic blood 2020-04-27 10:59:00 50 mm[Hg] [facility] Heart rate 2020-04-27 10:59:00 58 /min [facility] Body temperature 2020-04-27 10:59:00 36.83 Jessica [facility] Respiratory rate 2020-04-27 10:59:00 18 /min [facility] Oxygen saturation in 2020-04-27 10:59:00 98 /min [facility] Arterial blood by Medical Ce nter Pulse oximetry Body height 2020-04-26 06:00:00 157.5 cm [facility] Body weight Measured 2020-04-26 06:00:00 95.936 kg [facility] BMI 2020-04-26 06:00:00 38.67 kg/m2 [facility] Procedures Procedure Date / Time Performed Performing Clinician Deepti godoy ARRYTHMIA IMPLANT REPORT 2020-05-09 14:21:41 Provider, Default C [facility] - - SCAN [facility] ARRYTHMIA IMPLANT REPORT 2020-04-28 10:40:58 Provider, Default C [facility] - - [facility] RHYTHM STRIP - SCAN 2020-04-28 10:40:57 Provider, Default [facility] POCT-GLUCOSE METER 2020-04-27 11:03:00 Dana ePrla [facility] POCT-GLUCOSE METER 2020-04-27 05:33:00 Dana Perla [facility] BASIC METABOLIC PANEL 2020-04-27 04:47:00 Katy Waite [address] CBC W/PLT COUNT & AUTO 2020-04-27 04:47:00 Katy Waite [facility] POCT-GLUCOSE METER 2020-04-26 23:56:00 Dana Perla [facility] ECG 12-LEAD 2020-04-26 20:20:42 Unknown, Hl7 Doctor [facility] POCT-GLUCOSE METER 2020-04-26 17:33:00 Dana Perla [facility] TISSUE EXAM 2020-04-26 10:59:00 Dana Perla [facility] LAPAROSCOPY,REMOVAL 2020-04-26 08:00:00 Dana Perla [facility] - GASTRIC BAND [facility] ROBOTIC 2020-04-26 08:00:00 Dana Perla [facility] - LAPAROSCOPY,ESOPHAGOJEJU [facility] NOSTOMY ROBOTIC 2020-04-26 08:00:00 Dana Perla [facility] - LAPAROSCOPY,HERNIORRHAPH [facility] Y HIATAL UPPER ENDOSCOPY 2020-04-26 08:00:00 Dana Perla [facility] TRANSFUSION SERVICE 2020-04-19 18:04:56 Provider, Default [facility] - REPORT [facility] ECG 12-LEAD 2020-04-18 12:20:00 Unknown, Hl7 Doctor [facility] HEMOGLOBIN 2020-04-18 12:18:00 Fortunato Palma [facility] TYPE AND SCREEN, 2020-04-18 12:18:00 [facility] BUN AND CREATININE 2020-04-18 12:17:00 Fortunato Palma [facility] - W/RATIO [facility] ELECTROLYTE PANEL 2020-04-18 12:17:00 Fortunato Palma [facility] XR CHEST 2 VIEWS 2019-08-26 14:40:00 [facility] 2019-07-29 15:00:00 Maya Knowles [facility] REPORT OF PROCEDURE - 2019-07-23 07:31:40 Darian Fry [facility] ENDOSCOPY [facility] TISSUE EXAM 2019-07-23 07:22:00 Darian Fry [facility] UPPER ENDOSCOPY,BIOPSY 2019-07-23 07:00[facility]00 [facility] Planned Activity Planned Date Details Comments Source Future Scheduled 2020-07-13 INFLUENZA VACCINE [place] 00:00:00 [code = INFLUENZA VACCINE] Future Scheduled 1997 Screening for [facility] Test 00:00:00 malignant neoplasm of cervix (procedure) [code = 120147189] Encounters Start End Encounter Admission Attending Care Care Encounter Source Date/Time Date/Time Type Type Clinicians Facility Department ID 2020-05-16 2020-05-16 Office Allyn BARAJAS [id number] 13:19:09 15:20:25 Visit erika Dana AMBULATOR 350.1.13.21 G Y 0.2.7.2.686 [id number] 800 2020-05-02 2020-05-02 Office EMILY Queen 1.2.840.114 [id number] 13:56:12 14:26:12 Visit Kandis A AMBULATOR 350.1.13.21 Y 0.2.7.2.686 [id number] 800 2020-04-18 2020-04-18 Office Allyn Kenia 1.2.840.114 [id number] 09:19:54 15:17:15 Visit Dana james AMBULATOR 350.1.13.21 G Y 0.2.7.2.686 [id number] 800 2019-12-02 2019-12-02 Office Allyn BCKenia 1.2.840.114 [id number] 10:01:30 12:40:44 Visit Dana james AMBULATOR 350.1.13.21 G Y 0.2.7.2.686 [id number] 800 2019-07-16 2019-07-16 Office CandidaEMILY 1.2.840.114 [id number] 13:41:03 15:14:00 Visit Madison AMBULATOR 350.1.13.21 Y 0.2.7.2.686 [id number] 800 2019-06-16 2019-06-16 Office EMILY Tirado 1.2.840.114 [id number] 10:26:53 13:08:19 Visit Madison AMBULATOR 350.1.13.21 Y 0.2.7.2.686 [id number] 800 2019-05-12 2019-05-12 Office KaceyEMILY means 1.2.840.114 [id number] 12:57:08 15:12:24 Visit Darian AMBULATOR 350.1.13.21 Y 0.2.7.2.686 [id number] Results Test Description Test Time Test Comments Results Result Comments Source POC-Glucose meter 2020-04-27 11:14:00 Test Item Value Reference Range Interpretation Comme nts POC-Glucose Meter (test code = 86 mg/dL 70-110 : TESTED AT [facility] [address] [facility] 1538) [facility], [facility] 30: Programming Internship/Techni ashish ID = [id number] for PALMIRA CHUN Lab Interpretation (test code = Normal 59493-0) [facility] [id number] 11:14:00 Test Item Value Reference Range Interpretation Comments POC-GLUCOSE METER 86 mg/dL 70-110 : TESTED A T [facility] 6720 (BEAKER) (test code = [place] R[place], 1538) [address]: Programming Internship/Techni ashish ID = [id number] for SABAS CHAVEZ ECG 12 [id number] 07:26:27Interface, External Ris In - 04/27/2020 7:26 AM CDTVentricular Rate 61 BPMAtrial Rate 61 BPMP-R Interval 174 msQRS Duration 90 msQ-T Interval 522 msQTC Calculation(Bazett) 525 msP Herod 36 degreesR Herod 7 degreesT Herod 5 degreesNormal sinus rhythmProlonged QTAbnormal ECGWhen compared with ECG of 18-APR-2020 12:20,Sinus rhythm has replaced Electronic atrial pacemakerConfirmed by MD Yuan Roberto ([id number]) on 04/27/2020 7:26:23 AM [facility] metabolic [id number] 05:47:00 Test Item Value Reference Range Interpretation Comments Sodium (test code = 143 meq/L 220-155 6287-2) Potassium (test code = 4.1 meq/L 3.5-5.1 2823-3) Chloride (test code = 115 meq/L 98-107 H 2075-0) CO2 (test code = 25 meq/L 22-29 2028-9) BUN (test code = 9 mg/dL 7-21 3094-0) Creatinine (test code 0.76 mg/dL 0.57-1.25 = 2160-0) Glucose (test code = 109 mg/dL 70-105 H 2345-7) Calcium (test code = 8.2 mg/dL 8.4-10.2 L 40799-8) EGFR (test code = 83 mL/min/1.73 [place] [address]-5) NOT ACCURATE CREATININE CLEARANCE IN PREDICTING GLOMERULAR FILTRATION RATE . ESTIMATED GFR I S NOT APPLICABLE FOR DIALYSIS PATIENTS. MANE (test code = MANE) Programming Internship ID - PIAYA L Lab Interpretation Abnormal (test code = 07475-9) [facility] METABOLIC [id number] 05:47:00 Test Item Value Reference Range Interpretation [...] S NOT APPLICABLE FOR DIALYSIS PATIEN TS. Programming Internship ID - PIAYA LPOCT-GLUCOSE [id number] 05:44:00 Test Item Value Reference Range Interpretation Comments POC-GLUCOSE METER 97 mg/dL 70-110 : TESTED A T [facility] 6720 (BEAKER) (test code = GRETASORIN Hall [facility], 1538) [address]: Programming Internship/Techni ashish ID = [id number] for BRANDEE ERS, POLO CBC with platelet count + automated [id number] 05:31:00 Test Item Value Reference Range Interpretation [...] 450 K/CU MM MPV (test code = 88533-1) 10.8 fL 9.4-12.3 nRBC (test code = [...] 2801) Lab Interpretation (test code = Abnormal 44288-4) [facility] W/PLT COUNT & AUTO [id number] 05:31:00 Test Item Value Reference Range Interpretation [...] PERCENT (BEAKER) (test code = 2801) POCT-GLUCOSE [id number] 00:07:00 Test Item Value Reference Range Interpretation Comments POC-GLUCOSE METER 150 mg/dL 70-110 H : TESTED A T [facility] 6720 (BEAKER) (test code = [facility], 1538) [address]: Programming Internship/Techni ashish ID = [id number] for POLO CHAVEZ POCT-GLUCOSE [id number] 17:50:00 Test Item Value Reference Range Interpretation Comments POC-GLUCOSE METER 161 mg/dL 70-110 H : TESTED A T [facility] 6720 (BEAKER) (test code = [facility], 1538) [address]: Programming Internship/Techni ashish ID = [id number] for erinRamirez jamil Tissue [id number] 16:24:00 Test Item Value Reference Range Interpretation Comments Case Report (test code Surgical Pathology = 104) Report Case: [id number] Authorizing Provider: Dana Perla Collected: 04/26/2020 10:59 AM MD Sal Ordering Location: [facility] PERIOPERATIVE Received: 04/26/2020 02:14 PM SERVICES Pathologist: Lea Santillan MD Specimen: Explant, Lap Gastric Band for I and D DIAGNOSIS (test code = x0psxAAtRGPma1yeGTRmtQT 3220) uZzEwMzNcZnRuYmpcdWMxIH wcwuEyKVsbj7LwN8AgGwEcJ FxhbnNpXGRlZmxhbmcxMDMz NEE6agSiYCXeKAexCJHoBBb xIx4kgFSvqLngBgRpMCAcg4 sbwiHNrumaeUz4q8rvNTZvE gN8xXJdFPlfL1kjseXivXNi UABqLIt2vI00WYSnqP0spYO sIDtccmVkMFxncmVlbjBcYm t0HGKjD9jwBIUbWINpU0WiF A2yIRQrQng3YOK3SVG3pHxg k7T0uYAibQRceFtiIpNpWwJ pHYQYt3JeSCr0lWbaM6FkCS PdWwW8bWZfLRWrJBwsOIDpK BLgzqE0rX01LQwoomH2dTEa d9Acf40vr553fR5gnLOyMAU 8HCMbPMRfnRXcKFXoROZ5KQ XsyAMkS8u3ReTknXWvW1Q8U uDtaAGyL9I6JlPqrYTiG8V7 TwSowGOqXPMkxFYxVj3flJU ucJZoqj6eof78PZQ9l9RrqV fwYXI9YIE6UeViGt7faEDoB SAvZE1lAfHwzOTgOLCxsn44 gZllNLsmkpXqtF1bYbNkMJV xfGLmRJWwTU5knGCtXYDtyP 5ucmxjXHBnYnJkcmhlYWRcc TahqbZsVp1nlUnyDAW0GZzb P0lwiJ9gTwN4QWwmC2isvS2 pVOq4IZghaGH5ICZqpU8sYK 7oxbgva0gjOkOrWX9okooer 2ktBsBcWH4hchi8u2tmEiZo DY0zpvign9keHtQhHGpoBSG nhzidAETuz6JawdslZQJou8 WcX5GosCknZ94hkWysJ70cB VXonIymrJ5brSoyoU7yEdAt ZnMyMFxxbFxwbGFpblxmMFx mczIwXHBsYWluXGYxXGZzMj GbKK8wW2EPSDGDKbzgZ7IFH BOPIzYMYY3RRELMBM6JUeXV OlxwYXIgICAgICAgICAgIC0 cR3VDEYDSPePHOG7LQUuAAK 7SJXQTYZDzHYeIO5AJJP9HC FkpXHBhclxwYXJccGFyfXtc xjXiOQrbh8IvCZowWADkOR6 jiIicMRGxRW9bSNExK7ftlD 2awff9UlRpFDJzWuA5TGVar fP4Gnn5FGKcLZggc5mww6Bu LCEzHUf1rLzyEsBfEPQqa8q zcyBcZmNoYXJzZXQwIEFyaW PrC547h9uai0nyseAfiBO3N NIqNOS6WRzgpmPqfbJ4YAxb wRZkQfY3RWjlyxCqNLlgdaM ensClQbu7YAQkF539YAQ3kC nrr1myRCR0AWLlHOZzJzThQ l3qhOSaC686MQYfYSBOIZTh uMr5SSEgtqLxyxLcaXKKg72 6K401k1fpZSAuhdVsrIsUvj agg1wbJ220PQFowQYqigPzK xCyYKDxeCOjtLL7TBYaAK4e opcfGZrnAEsmWHEbzxY2JHK ekNPnL8XdUMAmCI6brwzfUU X0TPyvDUYsWFX5GgMyQOQcg 6Qvtoh2LeHttu1wxl67WCM2 u9CyiYnaJMS2IJR2WqKaRn6 ziSCmJPLlHX4rRgRpeMIbYD Kyvc18jMapHQfpTMK4HLCac bUsw8Bhn1qxRgHezyAkP3na Y3EaRXMpHAQlKURgWkVrpuD bp2Ops8KbbMIlgCe7g6yzDZ IgJLLymWbcu7rjWIT1JICmy RUeM4gaqN1rYIVlXC1nnzmo k5wbZUhqZUghBDBuuOU4vsW 6YNIweJYiF2JcdN2oCRUgMO toPTIjfxi6WcYjKp7arUXal TcyMFxzYmtwYWdlXHBnbmNv bnRccGduZGVjXHBsYWluXHB sYWluXGYwXGZzMjRccWxcbG FuZzEwMzNcaGljaFxmMVxkY cQhTRZgGBxjT8jvCcMcSjFn Snd7WBQdgRExLMXwBlk8THR nqFKkFSKVqEsjqK1mVUUxbG wzrT1goSN3XRLyynUmsRSKw V3gCFEIqP3uGsE1GePrMoL0 OQQ3EDRedEDbaZ2= CPT Code(s) (test code l4zzoEYbKJQzwJWbObHoSAV = 3357) nUSAak0hsXANacVMhYjAbRd NcZnRuYmpcdWMxXGRlZmYwe 6fwx765pFBrc8ieYLTmStU3 lJJyLCKfnQTtC960o9otu2b hzyXxbSL4INKkGRH0OUaaku YcopQ2GUumtRLjQvL7WDnvv pGmIPtppyZkmmUtUdy6AEQn N628BOK9aUedf9txSLC1PIR pHSWfRtCfMh4ouGCsQ714KG CfYKEALHVbcDq7VADigdIdq bZdwNSRi032D975k4ibGHNk tjWshRqIpzstj1tzF911EBR hcGVydzEyMjQwXHBhcGVyaD A6EIVwZC3uthqzVsZmOF0yp pmoTkQgGN6omri0IhWsGO2i cmdiNzIwXGhlYWRlcnkwXGZ lw0LyosbcKK0iL0Qcs0W0xH 9maXRcZGVmdGFiNzIwXGZvc y0bmJBdPEuce2RdKHK0abQ9 kPZjqNIsLCSjZM06Qtgvf6A iNaxuKUO6QVSaldVlb2Cnf7 haMiXlmzLbF3hcC4AeMFXjJ KLqTKFpExDmhgVkw2Bqe5Zv bLOfyRq7l3voKAAwEUQzvPy cy5tdINM6LCUqJ4F7rAWeg7 poVIhaPNBwsVI3axpcXRvqH ZBaqgW0gmvqCTllKFZfmWM5 ddfiWTgzDQZvUoK8dwwbCFc bPKErRSJ5MVtqn878WME8OR xzYmtwYWdlXHBnbmNvbnRcc GduZGVjXHBsYWluXHBsYWlu XGYwXGZzMjRccWxccGxhaW5 iCkBeOvTxVUngSB5rOJMuO8 bokBQgHLWxKGPwT0iiSnMtm W2uoZnpCQuyylCqNEe4EkVv XHBhcn0= CLINICAL HISTORY (test y6qmaGHcTEDovRNpEjBaVNM code = 3356) gEBAyn9oeHVFnvLKyFnZnKf NcZnRuYmpcdWMxXGRlZmYwe 9irj334sZYiv3faGDRjJkU6 eIJcZKCssQFqC497HKYmDKy ms5ovs4DjNQWbkQOmx8T0EG VNctdkuZz4fOtnF18sl0F3Q ashN9pfQLFhJGXrY6GvID5q XOYfAxf4VRM7ZTO9CKXiLFL nR2LbSF1sZOPokZOzSAl3v8 qmqPhxCHIbJAB1h2jfOSssw cMtHW9ikk7ntKh5p3wilhMz ZCSqXJBoyUKDBFDmU0KwkHj hOe5brDp1gEeaApheZEN4Tq p9CG4did81uyv4aFblGJEpa icyQmN8ZDluXIQwhntyFUj4 MFxtYXJnbDcyMFxtYXJncjc yMFxtYXJndDcyMFxtYXJnYj rtFRxqGIAvLML3CKcrm489O ZS9PWriq0zrf1zocJJbPkr2 ONLeFhNvOfmqNWevq1Bez2q fQNSbsc2pRYE6nBUgvFidm1 A8pYGhISWueZKjzkCpKZXzA lU5UVfgMK5hbb56NHTqJAF9 qi5xmDTtzAfiwfUkcOZlPZv sQ3QzFFSmp123ZZLcP5ZpVP Jge1R3lgPiKaWeODXoeGP0w oL6CKMoMZz8gXIbcyP6ioKq eVBzS1uncB79SkMyiQLeX1D mbD64PjDwoVNlI7QpoA53Ap CryCShQ1OfkB93LiAeoPRaM TQadHPqIs2yrPIumKYwk0Zv mCBlFEiqK07ro706NIDgdhQ tL4ghyACectuutLChdeztDP dkieQ3JRf5tyHusovcqSsuk GFpblxmMVxmczIwXGxhbmcx LOJiMSzoB3qjUxWhQBQpaBn lRWsvq6IrQMXwQWQtCqCrGA 1qIkziVJ2nFHTluQeioCmzG SBPdGhlciBoeXBlcmxpcGlk BD0nZXCapMvfJSURQzC2jgA gvOk9XWKwpLGtyOTcfZ1bUH BcbGluZSBIZWFydCBkaXNlY KCkDCI7ekKuTRJvTwbxRLZa cGFyfQ== SPECIMEN SOURCE (test v1lmmCDwOTTbrSBwYwDfOEG code = 3377) xRQGsf5oxPQCevDKeWsQeSc NcZnRuYmpcdWMxXGRlZmYwe 3zlj741sMFas1cdHNGiMcA6 lGHaAZGpuTTpO194h6slr8a xbgJaxTC6ODGqOFT3ZXncyy VvosG1JLawsSHaBoR8SCdzf bElRIxxbnJasjPzDps6VFBw C763FVL1kTwmk0waXUG5WCO kOBMgFtAxGg2leSVoH924XU JdCAGDHZYvcYr6VBQyhfBsu gUbwXRYy923T241a5fzPIXi vjWtzKrSfuxob1eiT883BWK hcGVydzEyMjQwXHBhcGVyaD M5JBRqWZ1geuyuAfXmJA9wh xfwJgWkFU3ehed6YnJwTW1z cmdiNzIwXGhlYWRlcnkwXGZ rv2RwihchQQ0lF7Kyn5D6yP 9maXRcZGVmdGFiNzIwXGZvc e1mbYBpHXkay3CzVPX7qjC9 xUUekFRlBVSyYT27Klzha7E kGknzVDP2LEVyfzQgx9Sdk5 ywWxDxlqKuD3cwC0PbIUYjJ ZItHICmKqVaaqIec5Nby2Pm dFIeuAu1b8joPXEyFAQqaDx rg7bpLPQ0TZTaV7I6bCTts7 efJVgjHTJivEX8zvnyUPvcL MLvfbU3olexBKigABFpiZZ4 kuqwLJnkOGVyBrA0pohtOYm pZRMwVNP3EXqqm602RCD7DK xzYmtwYWdlXHBnbmNvbnRcc GduZGVjXHBsYWluXHBsYWlu XGYwXGZzMjRccWxccGxhaW5 qLnIkEjBbANxqAW7xDAUgP4 tybOCjFSXvWFEfN0kzHiPwh U2voVgnZIrrvkXmRLhpb5Rl aWNccGFyfQ== GROSS DESCRIPTION m4dupYTpPNVmfNLyLqCuLWS (test code = 3366) pRUVcq8ovOESqaWCbFtIeYr NcZnRuYmpcdWMxXGRlZmYwe 0bus257kOPoo7yvXUByHvE1 iCImJTEwrPXeU975t5ffk9w jncNsuFF1XTReONJ3KEpbwr YlxpX3PXxjlXCkZtF0HOrkw jRpNRybqrKwkbArGpw5OEZf O509KVE6qPgus8mlXRQ7UAJ rUHThDdCcFk5ylYUqB930JR TlDRZKKLNteAn9TEBzdeAra yPouCZIw054O761a6soSBTm uyAchHvChkvym5lgP290HVK hcGVydzEyMjQwXHBhcGVyaD R2METdXQ3xvnxdFrWsFL2jm yzxZtYjBI2ndla3OlWbUS8w cmdiNzIwXGhlYWRlcnkwXGZ ha3JuzfnbGI7vW1Scz8R9pX 9maXRcZGVmdGFiNzIwXGZvc u7zmJQsACnae4OvAHP9jvP2 bHRvdNMeIGOfBI22Xdrip1O oVtjyTPH0IDBqozUxo9Sjx5 fyAuGmknYeQ1fjG2MzAZIwK KLjFBCgUnKacuAug3Vma9Gz mBXzqVr8n0lvHDZaIIToaRc wo4yyGDQ0WPVjP4F1sVFhn9 bvTTsfFCNwaZG9sefiDKoaU QEnoxH0fbdvSZbjWYMlqPD5 rqotWDlnGBGbErJ1bptjQRd jWRNcQAG6DUbvh751OGN3YZ xzYmtwYWdlXHBnbmNvbnRcc GduZGVjXHBsYWluXHBsYWlu XGYwXGZzMjRccWxccGxhaW5 yXkHsGiWsUUyiWN9vNAIgK1 nsgGInDNHhKQOtW9waBaKez O1eyWsgHQfygwGoGUUqWMXh C1OlwwZuFYEiCDRvDFxdLwY qLNPqm8r1nNC0pIMujTS8nT WyjXwvAoGrTO3irDZsJG2eD DygEPsmvdQkp0ShQV25lCOa whQcjgWvInD5oRzrrlSvZZn gLMAqOHYhvNGkK6JdOFKtRV 2rZOjct9CbmBZpEiEgVOUbU QOsuANrpaleCQ01NRpaVA65 TVeeVeYsqZL0yRFoYJCuHHN eZ85pvG8qoICbR1VrALV4HE AuMyBjbSBpbiBkaWFtZXRlc pQ8lIb2UTG0fNThEfVvOPqs byByZWNlaXZlZCBpcyBhIGN dmdN5tEIyFXSmshDCfGbxjj uckdApzvVfRWBWo4N2XJNoV 8C6vNHeSLZwqGMbgqknTqYs bSBpbiBkaWFtZXRlciBhbmQ tLY59GXTrLKpcVFrnaNpcoR 4gIFRoZXJlIGlzIGEgMTYuN ZTeaOSklqUlKA6vnLrtEsgx FL6rBGKoLAglTUWvPI2gzJJ sNSQ1zORdfGCwBACqqMbeiY YhJzYjKHtxDNGruvPfIQ3OM BLyARxaKHqbx4XetOGeMHY2 lGZfJXQzw5QpizKdFbFzHbX eS6eVHnbfEqKkFAA4WD23kV KtgpueDbW6LZ9gItIrzKzuN HJhbmdlOiAwLTEwIGNjLiIg UZHgS7Reu3RjbAbloM7olaI twWFcsyY9WAscwl4pHN7lBL SeM1Djc18gQHIcANTijFQna PV0HKIgJ5Fsr2Qtu12uzA9w tAUhJOYczlJTqTBtg1CzZJm yYXVuLCBNSFMsIFBBIChBU0 NQKVxwYXJccGFyXHBhcn0= MICROSCOPIC a5hrdBZxCCFwpLIyLaYeVJL DESCRIPTION (test code kXXCil3myJWJpiXUhMpZjBo = 3371) NcZnRuYmpcdWMxXGRlZmYwe 4yqw464rVYqy1qoIZXoSrQ5 iCQqRMNiiOFaM316n3lyu2h eovOwnCQ0GFBmBLK9AQleit MdqyD1YIqzrXBiYhI8YCwvc cEwIMaqnlZvuqXpIyk6RXTo A598JVV7sDayn1wiUVL0AHS uXNKkVlLtIo3vdFEnB209YK NjQMSDYVMbjXn5SIUifgLpm aIkdQBOt777X994i9wfHQBo azBzqUkChnjkr5uaM195ONF hcGVydzEyMjQwXHBhcGVyaD F1VQVoCI9zfawlNcFxKS8jz nloIaBmLD5fegp7RuOfDV1g cmdiNzIwXGhlYWRlcnkwXGZ pr9IrhwbdTS8qM2Slr3Y7yP 9maXRcZGVmdGFiNzIwXGZvc t1evKOrROcgy6YzEFX5ydW2 yJFzqBRvYODdBS07Zzbyk6L rFfpmFZC3HOOucuLhs2Inx3 rmMmTfeyVuH8kjG3RmQVGrL UVwZVJdHwMgeyTbv1Lbw1Ys wXHmwLi0h4zeUWEgESDvlFy de5xdXAK2SUMfQ7W2tHCvb7 qfGLkrAGYqwVY8bmhbOQltM DBbnuJ9nelyJMjrSHUjvWF7 ialfKAekQIDjYyN2xpfcILy xABRpIBK9LRirp955HGJ1GX xzYmtwYWdlXHBnbmNvbnRcc GduZGVjXHBsYWluXHBsYWlu XGYwXGZzMjRccWxccGxhaW5 fEiCkTuFkOWfdSU1fWFKwV7 wduTOwNJVsEHVmE2zcWiYni J1etIfxPJilqqWdTV8eDNpi YXJ9 [facility] [id number] 16:24:00Surgical Pathology Report Case: [id number] Authorizing Provider: Dana Perla Collected: 04/26/2020 10:59 AM MD Sal [facility] Received: 04/26/2020 02:14 PM SERVICES Pathologist: Lea Santillan MD Specimen: Explant, Lap Gastric Band for I and D A. GASTRIC, GASTRIC BAND, REMOVAL: - GASTRIC BAND IDENTIFIED (GROSS ONLY) Signing Pathologist Direct Phone Line: [phone] signed by Lea Santillan MD on 04/26/2020 at 4:24 [id number] obesityOther hyperlipidemia Obstructive sleep apnea Heart disease, [...] The Port-A-Cath is inscribed with "lot number: [id number] part number: [id number] full range: 0-10 cc." A gross photograph is taken. No sections are submitted-gross only.KEVIN Sigala, PA (ASCP)N/AType and screen, [id number] 13:43:00 Test Item Value Reference Range Interpretation Comments ABO/RH AUTOMATED (BEAKER) (test A POSITIVE code = 2260) Ab Scrn (test code = 890-4) NEGATIVE [facility] 12:53:00 Test Item Value Reference Range Interpretation Comments Sodium (test code = 137 meq/L 643-380 6802-2) Potassium (test code = 4.2 meq/L 3.5-5.1 2823-3) Chloride (test code = 103 meq/L 98-107 2075-0) CO2 (test code = 8-9) 26 meq/L 22-29 MANE (test code = MANE) Programming Internship ID - PIAYA L Lab Interpretation (test Normal code = 51219-1) [facility] HospitalB[facility] and [id number] 12:53:00 Test Item Value Reference Range Interpretation [...] mL/min/1.73 [place] [address]-5) NOT ACCURATE CREATININE CLEARANCE IN PREDICTING GLOMERULAR FILTRATION RATE . ESTIMATED GFR I S NOT APPLICABLE FOR DIALYSIS PATIENTS. MANE (test code = MANE) Programming Internship ID - PIAYA L Lab Interpretation Abnormal (test code = 64868-6) [facility]TES2020-07-07 12:53:00 Test Item Value Reference Range Interpretation Comments SODIUM (BEAKER) (test code = 381) 137 meq/L 136-145 POTASSIUM (BEAKER) (test code = 4.2 meq/L 3.5-5.1 379) CHLORIDE (BEAKER) (test code = 382) 103 meq/L 98-107 CO2 (BEAKER) (test code = 355) 26 meq/L 22-29 Programming Internship ID - GARTH LBUN AND CREATININE [id number] 12:53:00 Test Item Value Reference Range Interpretation [...] S NOT APPLICABLE FOR DIALYSIS PATIEN TS. Programming Internship ID - GARTH RIekbndbrxs2806-34-78 12:36:00 Test Item Value Reference Range Interpretation Comments Hemoglobin (test code = 13.9 11.2- 15.7 GM/DL 786-4) MANE (test code = MANE) Programming Internship ID - [id number] Lab Interpretation (test Normal code = 46027-4) [facility]2020-[facility] 12:36:00 Test Item Value Reference Range Interpretation Comments HEMOGLOBIN (BEAKER) (test code = 13.9 GM/DL 11.2-15.7 410) Programming Internship ID - [id number], CHEST, 2 [id number] 15:35:00Reason for Exam:- >bariatric surgery status; abdominal pain,LUQ, Gastroesophageal reflux disease,esophagitis presence not specificied, pre-operative clearanceFINAL REPORT History provided: Bariatric surgery, abdominal pain CHEST PA ANDLATERAL COMPARISON STUDY: 01/01/2019 Heart size normal. Dual lead left subclavian ICD. Lungs clear and vascularity normal. Signed: Jc Tobar MDReport Verified Date/Time: 08/26/2019 15:35:48 Reading Location: [facility] Diagnostic Imaging Reading Room - [facility] 1.310.12 XR chest 2 [id number] 15:35:00 Interface, External Ris In - 08/26/2019 3:38 PM CSTFINAL REPORT History provided: Bariatric surgery, abdominal pain CHEST PA AND LATERAL COMPARISON STUDY: 01/01/2019 Heart size normal. Dual lead left subclavian ICD. Lungs clear and vascularity normal. Signed: Jc Tobar MDReport Verified Date/Time: 08/26/2019 15:35:48 Reading Location: [facility] Diagnostic Imaging Reading Room -[facility] F1 1.310.12 [facility] [id number] 09:50:00 Surgical Pathology Report Case: [id number] Authorizing Provider: Darian Fry MD Collected: 07/23/2019 0722 Ordering Location: [facility] Endoscopy Received: 07/23/2019 1333 Services Pathologist: [...] DYSPLASIA, MALIGNANCY Signing Pathologist Direct Phone Line: [phone] signed by Lea Santillan MD on 07/27/2019 at 9:50 [id number]. Biopsy gastric, description rule out H. Pylori. [...] evaluated Immunohistochemistry technical testing was performed at [facility], Pathology Laboratory where it was [...] to perform high complexity clinical laboratory testing.HEMOGLOBIN [id number] 12:55:00 Test Item Value Reference Range Interpretation Comments HEMOGLOBIN A1C (BEAKER) (test code = 4.8 % 4.3-6.1 368) LIPID [id number] 08:01:00 Test Item Value Reference Range Interpretation [...] 130-159 High 160-189 Very High >=190COMPREHENSIVE METABOLIC [id number] 08:01:00 Test Item Value Reference Range Interpretation [...] FOR DIALYSIS PATIEN TS. TSH/FREE T4 IF [id number] 06:11:00 Test Item Value Reference Range Interpretation Comments THYROID STIMULATING HORMONE 2.58 uIU/mL 0.35-4.94 (BEAKER) (test code = 772) VITAMIN B12 AND [id number] 06:11:00 Test Item Value Reference Range Interpretation [...] 0-0 (BEAKER) (test code = 413) URINALYSIS [id number] 02:49:00 Test Item Value Reference Range Interpretation Comments RBC UA (BEAKER) (test code = 519) < /HPF WBC UA (BEAKER) (test code = 520) 1 /HPF MUCUS (BEAKER) (test code = 1574) Many SQUAMOUS EPITHELIAL (BEAKER) (test 4 /HPF code = 516) URINALYSIS WITH MICROSCOPIC IF [id number] 02:46:00 Test Item Value Reference Range Interpretation [...] pg/mL 0-100 (test code = 700) TROPONIN [id number] 15:40:00 Test Item Value Reference Range Interpretation [...] acute neurological disease, and persistent tachyarrhythmia.BASIC METABOLIC [id number] 15:39:00 Test Item Value Reference Range Interpretation [...] m DATA TO CALCULA TE ESTIMATED GFR. [id number] 15:33:00 Test Item Value Reference Range Interpretation Comments MAGNESIUM (BEAKER) (test code = 2.0 mg/dL 1.6-2.6 627) RAD, CHEST, 1 VIEW, NON [id number] 15:29:00Reason for exam:->chest painIs the patient ?->UnknownFINAL REPORT TECHNIQUE: Frontal chest radiograph dated 01/01/2019. CLINICAL HISTORY: Chest pain COMPARISON STUDY: None IMPRESSION:Left-sided, dual-chamber defibrillator is in place. No pleural effusion or pneumothorax. Cardiomediastinal silhouette is normal in size. No pulmonaryedema. No fracture. Signed: Bg Zamudioeport Verified Date/Time: 01/01/2019 15:29:08 Reading Location: [facility] Radiology Reading Room [id number] 15:23:00 Test Item Value Reference Range Interpretation [...] for patients with mechanical heart valves. SCREEN, [id number] 15:23:00 Test Item Value Reference Range Interpretation Comments TEST URINE (BEAKER) (test Negative code = 583) CBC W/PLT COUNT & AUTO [id number] 15:15:00 Test Item Value Reference Range Interpretation [...] (BEAKER) (test code = 2801) CT, BRAIN/STROKE [id number] 14:33:00Reason for exam:->NUMBNESSReason for exam:->HEADACHEIs the patient [...] recommended for further evaluation. Signed: Latisha Youssef MDR[facility] Verified Date/Time: 01/01/2019 14:33:00 Reading Location: [facility] Radiology Reading Room
[2020-06-16] MEDS ORDERED: NA CHLORIDE 0.9% 1,000 ML ONE (10:56)
[2020-06-16 11:08] LABS: ALT/SGPT 94 U/L (12-78); AST/SGOT 114 U/L (15-37); Albumin 3.7 g/dL (3.4-5.0); Alkaline Phosphatase 117 U/L (45-117); BUN Blood Urea Nitrogen 10 mg/dL (7-18); Bicarbonate 31 mmol/L (21-32); Bilirubin Direct 0.2 mg/dL (0-0.2); Bilirubin Total 0.6 mg/dL (0.2-1.0); Glucose Level 91 mg/dL (74-106); Lipase 92 U/L (73-393); NT PRO-BNP 137 pg/mL (<125); Protein, Total 7.5 g/dL (6.4-8.2); Sodium Level 143 mmol/L (136-145); Troponin (Emerg Dept Use Only) < 0.02 ng/mL (0.0-0.045)
[2020-06-16 11:09] LABS: Potassium 2.7 mmol/L (3.5-5.1)
[2020-06-16 11:12] LABS: Absolute Lymphocytes (CBC) 1.2 K/uL (0.7-4.9); Basophils % 0.6 % (0-1.3); Hematocrit 39.9 % (36.0-45.0); Lymphocytes % 19.6 % (15.3-44.8); MPV 9.8 fL (7.6-11.3); RBC Red Blood Cell Count 4.73 M/uL (3.86-4.86)
[2020-06-16 11:33] LABS: Phosphorus 2.9 mg/dL (2.5-4.9)
[2020-06-16] MEDS ORDERED: NS KCL 20MEQ 1,000 ML IV ONE (11:40)
[2020-06-16] MEDS ORDERED: KCL 20 MEQ/100 mL IVPB 40 MEQ/200 ML BAG IV ONE (11:40)
[2020-06-16] MEDS ORDERED: POTASSIUM 25 MEQ EFFERV TAB ONE (11:40)
--- NOTE | 2020-06-16 11:58 | RAD REPORT ---
EXAM DESCRIPTION: RAD - Chest Single View - 06/16/2020 11:37 am CLINICAL HISTORY: COUGH Chest pain. COMPARISON: Chest Single View dated 06/12/2020; Chest Single View dated 05/24/2020; Chest Single View dated 05/11/2020; Chest Single View dated 03/31/2020 FINDINGS: Portable technique limits examination quality. The lungs are grossly clear. The heart is normal in size. No displaced fractures.Multi lead pacer/def ibrillator device is present. IMPRESSION: No acute intrathoracic process suspected.
--- NOTE | 2020-06-16 12:01 | RAD REPORT ---
EXAM DESCRIPTION: CTAbdomen Pelvis W Contrast - 06/16/2020 11:40 am CLINICAL HISTORY: Abdominal pain. ABD PAIN COMPARISON: Abdomen Pelvis W Contrast dated 05/11/2020; Abdomen Pelvis W Contrast dated 07/15/2018 ; Abdomen Pelvis W Contrast dated 01/02/2017; Abdomen Pelvis W Contrast dated 08/19/2016 TECHNIQUE: Biphasic CT imaging of the abdomen and pelvis was performed with 100 ml non-ionic IV cont rast. All CT scans are performed using dose optimization technique as appropriate and may include automated exposure control or mA/KV adjustment according to patient size. FINDINGS: The lung bases are clear.Cholecystectomy. Postsurgical changes are present about the stoma ch. The liver, spleen, pancreas, adrenal glands and kidneys are within normal limits. Small fat containin g umbilical hernia. No bowel obstruction, free air, free fluid or abscess. Sigmoid diverticulosis coli is present without diverticulitis. The appendix is normal. No evidence of significant lymphadenopathy. No suspicious bony findings. IMPRESSION: No acute intra-abdominal or pelvic finding.
--- NOTE | 2020-06-16 12:08 | EDPHYS ---
Physician Documentation [facility] Name: Vanessa Gonzalez Age: 44 yrs Sex: Female : 1975 Arrival Date: 06/16/2020 Time: 09:51 Bed 19 Private MD: Vy Parker ED Physician Eliot Hair HPI: 06/16 10:28 This 44 yrs old Female presents to ER via Ambulatory with complaints of madyson General Weakness, Numbness. 10:28 The patient's problem is reported as weakness. Onset: The symptoms/episode madyson began/occurred yesterday. 10:28 The patient presents with abdominal pain in the epigastric area, in the upper abdomen, madyson abdominal distention in the upper abdomen, in the lower abdomen. Onset: The symptoms/episode began/occurred 2 day(s) ago. Duration: This was a single incident. Context: the episode(s) was witnessed, by family. The symptoms are alleviated by nothing. The symptoms are aggravated by nothing. Severity of symptoms: At their worst the symptoms were mild in the emergency department the symptoms are unchanged. 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 - Social history:: Smoking status: Patient denies any tobacco usage or history of. - Family history:: not pertinent. ROS: 10:28 Constitutional: Negative for fever, chills, and weight loss, Eyes: Negative for injury, madyson pain, redness, and discharge, ENT: Negative for injury, pain, and discharge, Neck: Negative for injury, pain, and swelling, Cardiovascular: Negative for chest pain, palpitations, and edema, Respiratory: Negative for shortness of breath, cough, wheezing, and pleuritic chest pain, Abdomen/GI: Negative for abdominal pain, nausea, vomiting, diarrhea, and constipation, Back: Negative for injury and pain, : Negative for injury, bleeding, discharge, and swelling, MS/Extremity: Negative for injury and deformity, Skin: Negative for injury, rash, and discoloration, Psych: Negative for depression, anxiety, suicide ideation, homicidal ideation, and hallucinations, Allergy/Immunology: Negative for hives, rash, and allergies, Endocrine: Negative for neck swelling, polydipsia, polyuria, polyphagia, and marked weight changes, Hematologic/Lymphatic: Negative for swollen nodes, abnormal bleeding, and unusual bruising. 10:28 Neuro: Positive for near syncope. Exam: 10:28 Constitutional: This is a well developed, well nourished patient who is awake, alert, madyson and in no acute distress. Head/Face: Normocephalic, atraumatic. Eyes: Pupils equal round and reactive to light, extra-ocular motions intact. Lids and lashes normal. Conjunctiva and sclera are non-icteric and not injected. Cornea within normal limits. Periorbital areas with no swelling, redness, or edema. ENT: Nares patent. No nasal discharge, no septal abnormalities noted. Tympanic membranes are normal and external auditory canals are clear. Oropharynx with no redness, swelling, or masses, exudates, or evidence of obstruction, uvula midline. Mucous membranes moist. Neck: Trachea midline, no thyromegaly or masses palpated, and no cervical lymphadenopathy. Supple, full range of motion without nuchal rigidity, or vertebral point tenderness. No Meningismus. Chest/axilla: Normal chest wall appearance and motion. Nontender with no deformity. No lesions are appreciated. Cardiovascular: Regular rate and rhythm with a normal S1 and S2. No gallops, murmurs, or rubs. Normal PMI, no JVD. No pulse deficits. Respiratory: Lungs have equal breath sounds bilaterally, clear to auscultation and percussion. No rales, rhonchi or wheezes noted. No increased work of breathing, no retractions or nasal flaring. Abdomen/GI: Soft, non-tender, with normal bowel sounds. No distension or tympany. No guarding or rebound. No evidence of tenderness throughout. Back: No spinal tenderness. No costovertebral tenderness. Full range of motion. Skin: Warm, dry with normal turgor. Normal color with no rashes, no lesions, and no evidence of cellulitis. MS/ Extremity: Pulses equal, no cyanosis. Neurovascular intact. Full, normal range of motion. Neuro: Awake and alert, GCS 15, oriented to person, place, time, and situation. Cranial nerves II-XII grossly intact. Motor strength 5/5 in all extremities. Sensory grossly intact. Cerebellar exam normal. Normal gait. Psych: Awake, alert, with orientation to person, place and time. Behavior, mood, and affect are within normal limits. 10:57 ECG was reviewed by the Attending Physician. [facility] 12:04 Radiologist reports: [facility] Vital Signs: 09:55 Pulse 78; Resp 15; Temp 98.1(TE); Pulse Ox 99% on R/A; Weight 84.37 kg; Height 5 ft. 2 ss in. (157.48 cm); 09:59 BP 145 / 102; ss 10:51 BP 120 / 56; Pulse 60 MON; Resp 14; Pulse Ox 100% on R/A; sv 11:55 BP 124 / 89; Pulse 60; Resp 15 S; Pulse Ox 100% on R/A; ca1 12:55 BP 122 / 86; Pulse 61; Resp 15 S; Pulse Ox 100% on R/A; ca1 13:50 BP 135 / 84; Pulse 60; Resp 16 S; Pulse Ox 100% on R/A; ca1 14:56 BP 128 / 93; Pulse 60; Resp 16 S; Pulse Ox 100% on R/A; ca1 15:55 BP 117 / 50; Pulse 60; Resp 15 S; Pulse Ox 100% on R/A; ca1 17:30 BP 146 / 92; Pulse 90; Resp 16 S; Pulse Ox 100% on R/A; ca1 18:30 BP 124 / 94; Pulse 61; Resp 16 S; Pulse Ox 100% on R/A; ca1 19:30 BP 130 / 77; Pulse 60; Resp 16 S; Pulse Ox 100% on R/A; ca1 09:55 Body Mass Index 34.02 (84.37 kg, 157.48 cm) ss 10:51 Sinus Rhythm sv MDM: 10:00 Patient medically screened. [facility] 10:30 Data reviewed: vital signs, nurses notes, lab test result(s), EKG, radiologic studies, [facility] CT scan, plain films. 06/16 10:28 Order name: Basic Metabolic Panel; Complete Time: 11:59 [facility] 06/16 10:28 Order name: CBC with Diff; Complete Time: 11:59 [facility] 06/16 10:28 Order name: LFT's; Complete Time: 11:59 madyson 06/16 10:28 Order name: Magnesium; Complete Time: 11:59 madyson 06/16 10:28 Order name: NT PRO-BNP; Complete Time: 11:59 madyson 06/16 10:28 Order name: Troponin (emerg Dept Use Only); Complete Time: 11:59 madyson 06/16 10:28 Order name: XRAY Chest (1 view); Complete Time: 11:59 madyson 06/16 10:28 Order name: Lipase; Complete Time: 11:59 madyson 06/16 10:28 Order name: CT Abd/Pelvis - PO and IV Contrast; Complete Time: 12:04 madyson 06/16 10:28 Order name: Urine Culture [facility] 06/16 11:24 Order name: Phosphorus; Complete Time: 11:59 EDMS 06/16 12:08 Order name: Urine Dipstick--Ancillary (enter results); Complete Time: 14:24 eb 06/16 12:08 Order name: Urine --Ancillary (enter results); Complete Time: 14:24 eb 06/16 10:28 Order name: EKG; Complete Time: 10:28 [facility] 06/16 10:28 Order name: Cardiac monitoring; Complete Time: 10:46 madyson 06/16 10:28 Order name: EKG - Nurse/Tech; Complete Time: 10:46 [facility] 06/16 10:28 Order name: IV Saline Lock; Complete Time: 10:46 [facility] 06/16 10:28 Order name: Labs collected and sent; Complete Time: 10:46 [facility] 06/16 10:28 Order name: O2 Per Protocol; Complete Time: 10:46 [facility] 06/16 10:28 Order name: O2 Sat Monitoring; Complete Time: 10:46 [facility] 06/16 10:28 Order name: Urine Dipstick-Ancillary (obtain specimen); Complete Time: 12:10 madyson 06/16 10:28 Order name: Urine Test (obtain specimen); Complete Time: 12:10 [facility] EC:57 Rate is 60 beats/min. Rhythm is regular. QRS [place] is Normal. [place] interval is normal. QRS madyson interval is normal. QT interval is prolonged at 484 msec. No Q waves. T waves are Normal. No ST changes noted. Clinical impression: Normal ECG and No evidence of ischemia. Interpreted by me. Reviewed by me. Administered Medications: 10:46 Drug: NS 0.9% 1000 ml Route: IV; Rate: 1 bolus; Site: left antecubital; sv 11:50 Follow up: Response: No adverse reaction; IV Status: Completed infusion; IV Intake: ca1 1000ml 11:57 Drug: Potassium Effervescent Tablet 50 mEq Route: PO; ca1 15:12 Follow up: Response: No adverse reaction ca1 11:58 Drug: Potassium Chloride 20 mEq Route: IV; Rate: per protocol; Site: left antecubital; ca1 15:12 Follow up: Response: No adverse reaction; IV Status: Completed infusion ca1 12:14 Drug: NS 0.9% with KCl 20 mEq/L 1000 ml Route: IV; Rate: 150 ml/hr; Site: left ca1 antecubital; 20:06 Follow up: Response: No adverse reaction; IV Status: Completed infusion ca1 20:06 Follow up: IV Intake: 1000ml ca1 15:11 Drug: Potassium Effervescent Tablet 50 mEq Route: PO; ca1 16:00 Follow up: Response: No adverse reaction ca1 15:12 Drug: Potassium Chloride 20 mEq Route: IV; Rate: per protocol; Site: left antecubital; ca1 20:06 Follow up: Response: No adverse reaction; IV Status: Completed infusion ca1 Disposition: 06/16/20 12:07 Discharged to Home. Impression: Weakness, Long QT syndrome, Hypokalemia. - Condition is Stable. - Discharge Instructions: Potassium Content of Foods, Weakness, Pacemaker Implantation, Adult, Long QT Syndrome, Weakness, [id number], Hypokalemia. - Prescriptions for Potassium Chloride 10 % Oral Liquid - take 20 milliequivalent by ORAL route once daily Take after meal; Mix in 6 ounces of water or juice; 240 milliliter. - Medication Reconciliation Form, Thank You Letter, Antibiotic Education, Prescription Opioid Use form. - Follow up: Vy Parker MD; When: 2 - 3 days; Reason: Recheck today's complaints, Continuance of care, Re-evaluation by your physician. - Problem is new. - Symptoms have improved. Signatures: Dispatcher [employer] EDAngelika Loving RN RN sv Anderson, Corey, MD MD cha Smirch, Shelby, RN RN AcBianca leahy RN RN ca1 Corrections: (The following items were deleted from the chart) 11:25 11:16 PHOSPHORUS+C.LAB.BRZ ordered. EDNC EDMS 20:11 12:07 06/16/2020 12:07 Discharged to Home. Impression: Weakness; Long QT syndrome; ca1 Hypokalemia. Condition is Stable. Forms are Medication Reconciliation Form, Thank You Letter, Antibiotic Education, Prescription Opioid Use. Follow up: Vy Parker; When: 2 - 3 days; Reason: Recheck today's complaints, Continuance of care, Re-evaluation by your physician. Problem is new. Symptoms have improved. madyson
--- NOTE | 2020-06-16 12:08 | ER ---
Nurse's Notes [facility] Name: Vanessa Gonzalez Age: 44 yrs Sex: Female : 1975 Arrival Date: 06/16/2020 Time: 09:51 Bed 19 Private MD: Vy Parker Diagnosis: Weakness;Long QT syndrome;Hypokalemia Presentation: 06/16 09:55 Chief complaint: Patient states: Seen in ER Friday for dehydration and low potassium. ss Pt reports she was feeling a little better and able to eat, but now she is constipated and again not eating as well and believes she may be dehydrated again and have low potassium. C/0 tingling and muscle cramps. Coronavirus screen: Client denies travel out of the [place] in the last 14 days. Ebola Screen: Patient denies exposure to infectious person. Patient denies travel to an Ebola-affected area in the 21 days before illness onset. Initial Sepsis Screen: Does the patient meet any 2 criteria? No. Patient's initial sepsis screen is negative. Does the patient have a suspected source of infection? No. Patient's initial sepsis screen is negative. Risk Assessment: Do you want to hurt yourself or someone else? Patient reports no desire to harm self or others. Onset of symptoms was June 12, 2020. 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 - Social history:: Smoking status: Patient denies any tobacco usage or history of. - Family history:: not pertinent. Screenin:01 Abuse screen: Denies threats or abuse. Denies injuries from another. Nutritional sv screening: No deficits noted. Tuberculosis screening: No symptoms or risk factors identified. Fall Risk None identified. Assessment: 10:13 Reassessment: Pt stated that [employer] called her Friday and informed her that her sv pacemaker defibrillated her. 10:20 General: Appears in no apparent distress. uncomfortable, well developed, Behavior is sv calm, cooperative, appropriate for age. Pain: Denies pain. Neuro: Level of Consciousness is awake, alert, obeys commands, Oriented to person, place, time, situation, Moves all extremities. Full function Gait is steady, Speech is normal, Reports intermittent tingling to extremities. Cardiovascular: Patient's skin is warm and dry. Rhythm is sinus rhythm. Respiratory: Airway is patent Respiratory effort is even, unlabored, Respiratory pattern is regular, symmetrical. GI: Reports constipation. Derm: Skin is intact, Skin is pink, warm \T\ dry. Musculoskeletal: Range of motion: intact in all extremities. 10:25 Reassessment: Pt stated that her gastric bypass was in March 2020. sv 11:06 Reassessment: Patient appears in no apparent distress at this time. Patient and/or ca1 family updated on plan of care and expected duration. Pain level reassessed. Patient is alert, oriented x 3, equal unlabored respirations, skin warm/dry/pink. 11:35 Reassessment: Pt to CT via wheelchair. ca1 12:15 Reassessment: Patient appears in no apparent distress at this time. Patient and/or ca1 family updated on plan of care and expected duration. Pain level reassessed. Patient is alert, oriented x 3, equal unlabored respirations, skin warm/dry/pink. KCL infusing. D/C once completed. 13:15 Reassessment: Patient appears in no apparent distress at this time. Patient and/or ca1 family updated on plan of care and expected duration. Pain level reassessed. Patient is alert, oriented x 3, equal unlabored respirations, skin warm/dry/pink. 14:15 Reassessment: Patient appears in no apparent distress at this time. Patient and/or ca1 family updated on plan of care and expected duration. Pain level reassessed. Patient is alert, oriented x 3, equal unlabored respirations, skin warm/dry/pink. 15:10 Reassessment: Patient appears in no apparent distress at this time. Patient and/or ca1 family updated on plan of care and expected duration. Pain level reassessed. Patient is alert, oriented x 3, equal unlabored respirations, skin warm/dry/pink. 16:20 Reassessment: Patient appears in no apparent distress at this time. Patient and/or ca1 family updated on plan of care and expected duration. Pain level reassessed. Patient is alert, oriented x 3, equal unlabored respirations, skin warm/dry/pink. 17:20 Reassessment: Patient appears in no apparent distress at this time. Patient and/or ca1 family updated on plan of care and expected duration. Pain level reassessed. Patient is alert, oriented x 3, equal unlabored respirations, skin warm/dry/pink. 18:30 Reassessment: Patient appears in no apparent distress at this time. Patient and/or ca1 family updated on plan of care and expected duration. Pain level reassessed. Patient is alert, oriented x 3, equal unlabored respirations, skin warm/dry/pink. 19:30 Reassessment: Patient appears in no apparent distress at this time. Patient and/or ca1 family updated on plan of care and expected duration. Pain level reassessed. Patient is alert, oriented x 3, equal unlabored respirations, skin warm/dry/pink. Vital Signs: 09:55 Pulse 78; Resp 15; Temp 98.1(TE); Pulse Ox 99% on R/A; Weight 84.37 kg; Height 5 ft. 2 ss in. (157.48 cm); 09:59 BP 145 / 102; ss 10:51 BP 120 / 56; Pulse 60 MON; Resp 14; Pulse Ox 100% on R/A; sv 11:55 BP 124 / 89; Pulse 60; Resp 15 S; Pulse Ox 100% on R/A; ca1 12:55 BP 122 / 86; Pulse 61; Resp 15 S; Pulse Ox 100% on R/A; ca1 13:50 BP 135 / 84; Pulse 60; Resp 16 S; Pulse Ox 100% on R/A; ca1 14:56 BP 128 / 93; Pulse 60; Resp 16 S; Pulse Ox 100% on R/A; ca1 15:55 BP 117 / 50; Pulse 60; Resp 15 S; Pulse Ox 100% on R/A; ca1 17:30 BP 146 / 92; Pulse 90; Resp 16 S; Pulse Ox 100% on R/A; ca1 18:30 BP 124 / 94; Pulse 61; Resp 16 S; Pulse Ox 100% on R/A; ca1 19:30 BP 130 / 77; Pulse 60; Resp 16 S; Pulse Ox 100% on R/A; ca1 09:55 Body Mass Index 34.02 (84.37 kg, 157.48 cm) ss 10:51 Sinus Rhythm sv ED Course: 09:51 Patient arrived in ED. ag5 09:51 Vy Parker MD is Private Physician. ag5 09:58 Triage completed. ss 09:59 Arm band placed on right wrist. ss 10:00 Eliot Hair MD is Attending Physician. madyson 10:01 Angelika Moura RN is Primary Nurse. sv 10:01 Patient has correct armband on for positive identification. Bed in low position. Call sv light in reach. Door closed. Head of bed elevated. 10:22 ED physician to see patient. sv 10:25 Inserted saline lock: 20 gauge in left antecubital area, using aseptic technique. Blood sv collected. Flushed left antecubital with 5 ml normal saline. 10:38 EKG done, by ED staff, reviewed by Eliot Hair MD. ss 10:52 Awaiting lab results, Awaiting CT Scan, Awaiting for x-ray. sv 11:38 XRAY Chest (1 view) In Process Unspecified. EDMS 11:39 CT Abd/Pelvis - PO and IV Contrast In Process Unspecified. EDMS 12:05 Vy Parker MD is Referral Physician. madyson 20:08 No provider procedures requiring assistance completed. IV discontinued, intact, ca1 bleeding controlled, No redness/swelling at site. Pressure dressing applied. Administered Medications: 10:46 Drug: NS 0.9% 1000 ml Route: IV; Rate: 1 bolus; Site: left antecubital; sv 11:50 Follow up: Response: No adverse reaction; IV Status: Completed infusion; IV Intake: ca1 1000ml 11:57 Drug: Potassium Effervescent Tablet 50 mEq Route: PO; ca1 15:12 Follow up: Response: No adverse reaction ca1 11:58 Drug: Potassium Chloride 20 mEq Route: IV; Rate: per protocol; Site: left antecubital; ca1 15:12 Follow up: Response: No adverse reaction; IV Status: Completed infusion ca1 12:14 Drug: NS 0.9% with KCl 20 mEq/L 1000 ml Route: IV; Rate: 150 ml/hr; Site: left ca1 antecubital; 20:06 Follow up: Response: No adverse reaction; IV Status: Completed infusion ca1 20:06 Follow up: IV Intake: 1000ml ca1 15:11 Drug: Potassium Effervescent Tablet 50 mEq Route: PO; ca1 16:00 Follow up: Response: No adverse reaction ca1 15:12 Drug: Potassium Chloride 20 mEq Route: IV; Rate: per protocol; Site: left antecubital; ca1 20:06 Follow up: Response: No adverse reaction; IV Status: Completed infusion ca1 Intake: 11:50 IV: 1000ml; Total: 1000ml. ca1 20:06 IV: 1000ml; Total: 2000ml. ca1 Output: 19:30 Urine: 320ml (Voided); Total: 320ml. ca1 Outcome: 12:07 Discharge ordered by . madyson 20:08 Discharged to home ambulatory, with family. ca1 20:08 Condition: stable 20:08 Discharge instructions given to patient, Instructed on discharge instructions, follow up and referral plans. medication usage, Demonstrated understanding of instructions, follow-up care, medications, Prescriptions given X 1. 20:11 Patient left the ED. ca1 Signatures: Dispatcher [employer] Angelika Webb RN RN sv Anderson, Corey, MD MD cha Smirch, Shelby, RN RN ss Bianca Fisher RN RN ca1 [place], Ajare ag5
[2020-06-16 12:44] LABS: Urine Blood NEGATIVE (NEG); Urine Glucose NEGATIVE (NEG); Urine Protein NEGATIVE (NEG); Urine pH 6.5 (5.0-7.0)
--- NOTE | 2020-06-17 09:02 | EKG ---
Test Date: 2020-06-16 Test Time: 10:38:30 County Records Management Officer: NAVJOT MEASUREMENT RESULTS: Intervals: Rate: 60 TX: 168 QRSD: 90 QT: 484 QTc: 484 [place]: P: [place]: 168 QRS: 33 T: 20 INTERPRETIVE STATEMENTS: Electronic atrial pacemaker Prolonged QT Abnormal ECG Compared to ECG 06/11/2020 22:00:51 No significant changes Electronically Signed On 06-17-20 09:00:17 CDT by Hill Self
[2020-06-18 03:08] VITALS: TEMP 98.1
[2020-06-18 03:10] VITALS: O2SAT 100
[2020-06-18 03:20] VITALS: BP 130/77
== END 2020-06-16 20:11 | disposition home or self-care (01) ==
LOC: ER 09:50
DX: I45.81 Long QT syndrome (principal); E87.6 Hypokalemia; R55 Syncope and collapse; I10 Essential (primary) hypertension; Z88.5 Allergy status to narcotic agent; Z88.8 Allergy status to other drugs, medicaments and biological substances; Z95.810 Presence of automatic (implantable) cardiac defibrillator; Z98.84 Bariatric surgery status
CPT/HCPCS: 96365; 96361; 93005; 85025; 87086; 80048; 36415; 83735; 81025; 84100; 80076; 81003; 84484; 83690; 83880; 74177; 71045; 99284; 96366; Q9967; J3480; J7030; 87088

== ENCOUNTER 2020-10-29 12:02 | Emergency (ER) | payer OTHER ==
--- OUTSIDE RECORDS SUMMARY | 2020-10-29 12:04 | XMS REPORT | Clinical Summary ---
:1975 Author Organization [facility] Address [address] [place] [id number] Care Team Providers Name Role Phone Asked, [...] Problem Noted Date Long Q-T syndrome 10/28/2018 Surgical History Surgery Date Site/Laterality Comments HYSTERECTOMY CARDIAC ELECTROPHYSIOLOGY 10/28/2018 N/A Proced ure: EP AICD PROCEDURE IMPLANT SINGLE D UAL BI VENT PHOTON BLAD E; Surgeon: Yogesh Contreras Jr., MD; Locati on: [facility] Oracle R12 Developer Inva sive Location; Servi ce: Cardiology; Lat erality: N/A; Medical devices from this surgery are in t he Implants section . Medical History Medical History Date Comments Long Q-T syndrome Chest pain atypical Abnormal EKG Hyperlipidemia Sleep apnea Essential (primary) hypertension Social History Tobacco Use Types Packs/Day Years Used Date Never Assessed Sex Assigned at Date Recorded Not on file Last Filed Vital Signs Not on file Plan of Treatment Health Maintenance Due Date Last Done Comments COVID-19 VACCINE (1 of 2) 1992 CERVICAL CANCER SCREENING 1997 INFLUENZA VACCINE 05/13/2020 Implants Implanted Type Area Custom Miller Device Shelf Model / Identifier Expiration Serial / Date Lot Camila Acosta Dr Mri - [id number] - [id number] Cardiac N/A: MEDT LIZET FORMERLY [facility] 01/25/2020 [id number] / Implanted: Qty: 1 on 10/28/2018 by Yogesh Contreras Jr., M D at [facility] Pacemaker N/A [employer] [id number] / Generators [id number] S Lead [id number] Active Sc Sprint 55 Cm - [id number] Cardiac Pac ing N/A: [employer] FORMERLY [facility] 07/10/2020 [id number] / Implanted: 10/28/2018 at [facility] (Quantity not on file) Manju ds or N/[employer] [id number] / Electrodes or [id number] Accessories Lead, Bipolar Active Fixation Atrial Zohaib roid Eluting 45 Cm Capsure Fix Novus System - [id number] Cardiac Pacing N/A: [employer] [facility]LY [facility] [id number] / Implanted: 10/28/2018 at [facility] (Quantity not on file) Manju ds or N[employer] [id number] / Electrodes or [id number] Accessories Results Not on fileafter 10/29/2019 Advance Directives For more information, please contact: [phone] Type Date Recorded Patient Content Production Specialist Explanati on Advance Directives, Living Will and Medical Power of Mortar Worker
--- OUTSIDE RECORDS SUMMARY | 2020-10-29 12:04 | XMS REPORT | Clinical Summary ---
:1975 Author Organization [facility] Address [address] [place] [address] Care Team Providers Name Role Phone Alison Parker DO Primary Care Provider Allergies Active Allergy Reactions Severity Noted Date Comments Morphine Hives, Shortness Of Breath, Other (See High bradycardia Comments) Ketorolac Hives, Shortness Of Breath, Other (See High bradycardia Comments) Medications Medication Sig Dispensed Refills Start End Status Date Date evolocumab Inject 140 mg 0 Activ e (REPATHA SYRINGE) subcutaneously 140 mg/mL Syrg every 14 (fourteen) days . nebivolol [...] mg total) by mouth 0 tablet daily. topiramate (QUDEXY Take 25 mg by 0 Discontinued XR) 25 mg CSpX mouth daily. 020 (E rror) acetaminophen Take 1 tablet (500 30 tablet 0 (TYLENOL) 500 MG mg total) by mouth 0 020 tablet every 6 (six) hours as needed for Pain for up to 10 days. acetaminophen-code Take 1 tablet by 30 tablet 0 04/13 ine mouth every 6 0 020 (TYLENOL-CODEINE (six) hours as #3) 300-30 mg per needed for Pain tablet for up to 10 days. Max Daily Amount: 4 tablets Active Problems Problem Noted Date GERD (gastroesophageal reflux disease) 04/26/2020 Dysphagia 04/26/2020 Morbid obesity 07/23/2019 TIA (transient ischemic attack) 01/01/2019 Encounters Date Type Specialty Care Team Description 04/26/2020 Surgery [facility] LAPAROSCOPY,R EMOVAL Dana Colon GASTRIC BAND 04/26/2020 Anesthesia Event Katy Chanel MD Gentle, John Keeland, NP 04/26/2020 - Hospital Encounter General Internal [facility] Mor bid obesity (HCC) 04/27/2020 Medicine Dana Colon MD 04/25/2020 Travel 04/18/2020 Hospital Encounter Pre-Admission [facility] Morbid obesity (HCC) Testing Dana Colon MD 04/18/2020 Orders Only General Internal Medicine 04/18/2020 Travel after 10/29/2019 Social History Tobacco Use Types Packs/Day Years [...] Not on file Last Filed Vital Signs Vital Sign Reading Time Taken Comments Blood Pressure 98/50 04/27/2020 10:59 AM CDT Pulse 58 04/27/2020 10:59 AM CDT Temperature 36.8 C (98.3 F) 04/27/2020 10:59 AM CDT Respiratory Rate 18 04/27/2020 10:59 AM CDT Oxygen Saturation 98% 04/27/2020 10:59 AM CDT Inhaled Oxygen Concentration - - Weight 95.9 kg (211 lb 8 oz) 04/26/2020 6:00 AM CDT Height 157.5 cm (5' 2.01") 04/26/2020 6:00 AM CDT Body Mass Index 38.67 04/26/2020 6:00 AM CDT Plan of Treatment Health Maintenance Due Date Last Done Comments CERVICAL CANCER SCREENING PAP ONLY (Age 21-65) 1997 INFLUENZA VACCINE (#1) 2020 DEPRESSION SCREENING (12+) 10/13/2020 LIPID PANEL 01/02/2022 01/02/2019 Procedures Procedure Name Priority Date/Time Associated Comments [...] 522 ms QTC Calculation(Bazett) 525 ms P Morgan 36 degrees R Morgan 7 degrees T Morgan 5 degrees Normal sinus rhythm Prolonged QT [...] n the results section. UPPER ENDOSCOPY 04/26/2020 7:45 AM Morbid obesi ty (HCC) CDT Other hyperlipid emia Obstructive sleep apnea Heart disease, unspecified Case Notes MOVED TIME TO 8 AM PER SHAPE L Special Needs (EGD EQUIPMENT NEEDED,DAVINC I XI)Checked by AN 04/17/20 ROBOTIC 04/26/2020 7:45 Morbid obesity (HCC) LAPAROSCOPY,HERNIORRHAPHY HIATAL AM CDT Other hyperlipidemia Obstructive slee p apnea Heart disease, unspecified Case Notes MOVED TIME TO 8 AM PER SHAPE L Special Needs (EGD EQUIPMENT NEEDED,DAVINC I XI)Checked by AN 04/17/20 ROBOTIC 04/26/2020 Morbid obesity ( HCC) LAPAROSCOPY,ESOPHAGOJEJUNOSTOMY 7:45 AM CDT Other hyperlipidemia Obstructive slee p apnea Heart disease, unspecified Case Notes MOVED TIME TO 8 AM PER SHAPE L Special Needs (EGD EQUIPMENT NEEDED,DAVINC I XI)Checked by AN 04/17/20 LAPAROSCOPY,REMOVAL GASTRIC 04/26/2020 7:45 Mor bid obesity (HCC) BAND AM CDT Other hyperlipid emia Obstructive slee p apnea Heart disease, unspecified Case Notes MOVED TIME TO 8 AM PER SHAPE L Special Needs (EGD EQUIPMENT NEEDED,DAVINC I XI)Checked by AN 04/17/20 TRANSFUSION SERVICE REPORT - SCAN 04/19/2020 6:04 PM CDT ECG 12-LEAD Routine 04/18/2020 12:20 PM CDT Procedure Note - Interface, External Ris In - 04/18/2020 4:26 PM CDT Ventricular Rate 61 BPM Atrial Rate 61 BPM P-R Interval 210 ms QRS Duration 90 ms Q-T Interval 482 ms QTC Calculation(Bazett) 485 ms P Morgan -8 degrees R Morgan 18 degrees T Morgan 9 degrees Atrial-paced rhythm with pro longed AV conduction Nonspecific T wave abnormali ty Prolonged QT Abnormal ECG When compared with ECG of 16:35, Electronic atrial pacemaker has replaced Sinus rhythm Minimal criteria for Inferio r infarct are no longer Present Nonspecific T wave abnormali ty now evident in Anterolateral leads ECG 12-LEAD Routine 04/18/2020 12:20 PM CDT Resu lts for this procedure are i n the results section . TYPE AND SCREEN, AUTOMATED Routine 04/18/2020 12:18 PM CDT Results for this procedure are i n the results section . HEMOGLOBIN Routine 04/18/2020 12:18 PM CDT Resu lts for this procedure are i n the results section . ELECTROLYTE PANEL Routine 04/18/2020 12:17 PM CDT Results for this procedure are i n the results section . BUN AND CREATININE W/RATIO Routine 04/18/2020 12:17 PM CDT Results for this procedure are i n the results section . after 10/29/2019 Results ARRYTHMIA IMPLANT REPORT - SCAN (05/09/2020 [...] period is included. POC-Glucose Meter 86Comment: : 70 - 110 mg/dL [facility] TESTED AT [address], [address]: Sales Representative [employer]/Technic yessi ID = [id number] for SABAS CHUN Specimen Blood Performing Organization Address City/State/Zipcode Phone Number [address] [address] CENTER CBC with platelet count + automated diff (04/27/2020 4:47 AM CDT) Pathologist Sig nature WBC 11.6 (H) 3.5 - 10.5 [facility] K/L [facility] RBC 4.16 3.93 - 5.22 [facility] M/L [facility] Hemoglobin 11.6 11.2 - 15.7 [facility] GM/DL [facility] Hematocrit 37.2 34.1 - 44.9 % [facility] MCV 89.4 79.4 - 94.8 fL [facility] MCH 27.9 25.6 - 32.2 pg [facility] MCHC 31.2 (L) 32.2 - 35.5 [facility] GM/DL [facility] RDW 13.9 11.7 - 14.4 % [facility] Platelets 206 150 - 450 K/CU [facility] MPV 10.8 9.4 - 12.3 fL [facility] nRBC 0 0 - 0 /100 WBC [facility] % Neutros 81 % [facility] % Lymphs 10 % [facility] % Monos 8 % [facility] % Eos 0 % [facility] % Baso 0 % [facility] # Neutros 9.33 (H) 1.56 - 6.13 [facility] # Lymphs 1.19 1.18 - 3.74 [facility] # Monos 0.98 (H) 0.24 - 0.36 [facility] # Eos 0.00 (L) 0.04 - 0.36 [facility] # Baso 0.04 0.01 - 0.08 [facility] Immature 1 0 - 1 % [facility] Granulocytes-Relative [facility] Specimen Blood Performing Organization Address City/State/Zipcode Phone Number [facility] [address] [place] [address] CENTER Basic metabolic panel (04/27/2020 4:47 AM CDT) Sodium 143 136 - 145 meq/L [facility] Potassium 4.1 3.5 - 5.1 meq/L [facility] Chloride 115 (H) 98 - 107 meq/L [facility] CO2 25 22 - 29 meq/L [facility] BUN 9 7 - 21 mg/dL [facility] Creatinine 0.76 0.57 - 1.25 [facility] mg/dL [facility] Glucose 109 (H) 70 - 105 mg/dL [facility] Calcium 8.2 (L) 8.4 - 10.2 [facility] mg/dL [facility] EGFR 83Comment: ESTIMATED mL/min/1.73 sq [facility] GFR IS NOT m [facility] ACCURATE CENTER CREATININE CLEARANCE IN PREDICTING GLOMERULAR FILTRATION RATE. ESTIMATED GFR IS NOT APPLICABLE FOR DIALYSIS PATIENTS. Specimen Blood Narrative Performed At Sales Representative [employer] ID - PIAYA L [facility] Performing Organization Address City/State/[facility] Centercode Phone Number [facility] [address] [place] [address] CENTER ECG 12 lead (04/26/2020 8:20 PM CDT)Only the most recent of2 resultswithin the time period is included. Specimen Narrative Performed At Ventricular Rate 61 BPM GE MUSE Atrial Rate 61 BPM P-R Interval 174 ms QRS Duration 90 ms Q-T Interval 522 ms QTC Calculation(Bazett) 525 ms P Morgan 36 degrees R Morgan 7 degrees T Morgan 5 degrees Normal sinus rhythm Prolonged QT Abnormal ECG When compared with ECG of 18-APR-2020 12 :20, Sinus rhythm has replaced Electronic atr ial pacemaker Confirmed by MD Yuan Roberto ([id number]) on 04/27 7:26:23 AM Procedure Note Interface, External Ris In - 04/27/2020 7:26 AM CDT Ventricular Rate 61 BPM Atrial Rate 61 BPM P-R Interval 174 ms QRS Duration 90 ms Q-T Interval 522 ms QTC Calculation(Bazett) 525 ms P Morgan 36 degrees R Morgan 7 degrees T Morgan 5 degrees Normal sinus rhythm Prolonged QT Abnormal ECG When compared with ECG of 18-APR-2020 12 :20, Sinus rhythm has replaced Electronic atr ial pacemaker Confirmed by MD Yuan Roberto ([id number]) on 04/27/2020 7:26:23 AM Performing Organization Address City/[facility] Cent[facility]ode Phone Number GE MUSE Tissue Exam (04/26/2020 10:59 AM CDT) Case Report Surgical Pathology Report Case: [id number] [facility] Authorizing Provider: Dana Hull Collected: 04/26/2020 10:59 AM [facility] MD [facility] Ordering Location: [facility] PERIOPERATIVE Received: 04/26/2020 02:14 PM SERVICES Pathologist: Lea Santillan MD Specimen: Explant, Lap Gastric Band for I and D DIAGNOSIS A. GASTRIC, GASTRIC BAND, REMOVAL: [facility] Electronically - GASTRIC BAND IDENTIFIED (GROSS ONLY) [facility] signed by Jacque [facility] Kenia Tate on 04/26/2020 at 4 :24 Signing Pathologist Direct Phone Line: [phone] CPT Code(s) [address] [facility] CLINICAL HISTORY Morbid obesity [facility] Other hyperlipidemia [facility] Obstructive sleep apnea [facility] Heart disease, unspecified SPECIMEN SOURCE Gastric [facility] GROSS DESCRIPTION A. Received fresh labeled wi th the patients name, medical record number and "explant" is an Allergan brand gastric band measuring 5.5 x 5.5 x 2 cm with a 13 cm in length by 0.3 cm in diameter white tu [facility] be. Also received is a circ ular peters Allergan brand Port-A-Cath measuring 3 cm in diameter and 0.9 cm in height. There is a 16.5 cm in length by 0.3 cm in diameter attached catheter. The Port-A-Cath i [facility] s inscribed with "lot number : [id number] part number: [id number] full range: 0-10 cc." A gross photograph is taken. No sections are submitted-gross only. [facility] KEVIN Sigala PA (ASCP) MICROSCOPIC N/A [facility] Specimen Tissue - Explant Performing Organization Address City/State/Zipcode Phone Number [facility] [address] [place] [address] CENTER TRANSFUSION SERVICE REPORT - SCAN (04/19/2020 6:04 PM CDT) Narrative Performed At This result has an attachment that is no t available. Type and screen, automated (04/18/2020 12:18 PM CDT) Pathologist Sig nature ABO/RH AUTOMATED A POSITIVE [facility] (BEAKER) [facility] Ab Scrn NEGATIVE [facility] Specimen Blood - Entire left upper arm (body stru cture) Performing Organization Address [facility] Centercode Phone Number [address] [address] Hemoglobin (04/18/2020 12:18 PM CDT) Pathologist Sig nature Hemoglobin 13.9 11.2 - 15.7 GM/DL [facility] Specimen Blood - Entire left upper arm (body stru cture) Narrative Performed At Sales Representative [employer] ID - [id number] [facility] Performing Organization Address [facility] Centercoak Phone Number [address] [address] CENTER BUN and Creatinine (04/18/2020 12:17 PM CDT) BUN 22 (H) 7 - 21 mg/dL [facility] Creatinine 0.85 0.57 - 1.25 [facility] mg/dL [facility] BUN/Creatinine 25.8824Comment: [facility] Ratio For a normal [facility] individual on a [facility] normal diet, the reference interval for the mass ratio ranges between 12:1 and 20:1 (BUN in mg/dL/creatinine in mg/dL) EGFR 73Comment: mL/min/1.73 [facility] ESTIMATED GFR IS sq [facility] NOT ACCURATE MEDICAL CENTER CREATININE CLEARANCE IN PREDICTING GLOMERULAR FILTRATION RATE. ESTIMATED GFR IS NOT APPLICABLE FOR DIALYSIS PATIENTS. Specimen Blood - Entire left upper arm (body stru cture) Narrative Performed At Sales Representative [employer] ID - PIAYA L [facility] Performing Organization Address [facility] Centercode Phone Number [address] [address] CENTER Electrolytes (04/18/2020 12:17 PM CDT) Pathologist Sig nature Sodium 137 136 - 145 meq/L [facility] Potassium 4.2 3.5 - 5.1 meq/L [facility] Chloride 103 98 - 107 meq/L [facility] CO2 26 22 - 29 meq/L [facility] Specimen Blood - Entire left upper arm (body stru cture) Narrative Performed At Sales Representative [employer] ID - PIAYA L [facility] Performing Organization Address City/State/Zipcode Phone Number [facility] [address], [place] [id number] [place] after 10/29/2019 Insurance Payer Benefit Plan / Subscriber ID Effective Dates Phone Addre ss Type Group CIGNA - MGD CIGNA [id number] 2018-Present HMO/POS CARE HMO/POS/OPEN ACCESS Advance Directives For more information, please contact: [phone] Code Status Date Activated Date Inactivated Comments Full Code 04/26/2020 5:41 AM 04/27/2020 4:02 PM This code status was determined by: Patient Full Code 07/23/2019 5:59 AM 07/23/2019 10:56 AM This code status was determined by: Patient
--- OUTSIDE RECORDS SUMMARY | 2020-10-29 12:06 | XMS REPORT | Continuity of Care Document ---
:1975 Author Organization [facility] t Address [address] [place] [address] Care Team Providers Name Role Phone Asked, Pcp Primary Care Physician Unavailable Nilda Perla MD Attending Clinician Mustapha Pate Attending Clinician Sal Perla MD Attending Clinician [phone] Graciela Chanel MD Attending Clinician Devon Palma NP Attending Clinician SAL PERLA Attending Clinician Unavailable Mustapha FRY Attending Clinician Unavailable Candida GARCIA Attending Clinician Unavailable Ang THOMPSON Attending Clinician CECIL ROSARIO Attending Clinician Unavailable SAL PERLA Admitting Clinician Unavailable Mustapha FRY Admitting Clinician Unavailable RIA Admitting Clinician Unavailable Payers Payer Name Policy Type Policy Number Effective Date Expiration Date Rose olsen [employer] - MGD [id number] 2018 [facility] 00:00:00 - Medical HMO/POS/OPEN Center [id number] 2019-Presen tHMO/POS Problems Condition Condition Condition Status Onset Resolution [...] Date Stop Date Quantity Comments Source History [facility] Std Drinks Medica l Center History [facility] Alcohol Binge Medical Lisa ter Sex Assigned At [facility] Tobacco use and 2020-04-26 2020-04-26 Never used [facility] kes - exposure 00:00:00 00:00:00 [facility] Alcohol intake 2020-04-26 2020-04-[address] [facility] - 00:00:00 00:00:00 non-drinker of Medical Ce nter alcohol (finding) History SDOH 2019-07-21 2019-07-[address] [facility] - Alcohol Frequency 00:00:00 00:00:00 [facility] Center Smoking Status Start Date Stop Date Source Never sm[facility] Medications Ordered Filled Start Stop Current Ordering Indication Dosage Frequency Signature Comments Components Source Medication Medication Date Date Medication? Clinician (SIG) Name Name evolocumab 2020-0 Yes 140mg Q14D Inject [address] (REPATHA 7-16 mg [facility] - SYRINGE) 14:02: subcutaneo Med ical 140 mg/mL 23 usly every Cent er Syrg 14 (fourteen) days . nebivolol 2020-0 Yes 5mg QD Take [address] (BYSTOLIC) 7-16 by mouth [facility]ukes - 5 MG tablet 14:02: daily. Medi rah 23 Center ALPRAZolam 2020-0 Yes .5mg QD Take 0.[address] (XANAX XR) 7-16 mg by [facility] - 0.5 MG 24 14:02: mouth Medical hr tablet 23 every Center morning. topiramate 2020-0 Yes 50mg QD Take [address] (TOPAMAX) 7-16 by mouth [facility] - 50 MG 14:02: nightly . Medical tablet 23 Center ergocalcife 2020-0 Yes [id number] Q7D Take [facility] rol 7-16 50,000 [facility] - (VITAMIN 14:02: Units by Medic al D2) 1,250 23 mouth once Cent er mcg (50,000 a week. unit) capsule pantoprazol 2020-0 Yes 40mg QD Take [address] e 7-16 tablet (40 [facility] - (PROTONIX) 00:00: mg total) Me dical 40 MG 00 by mouth Center tablet daily. acetaminoph 2020-0 2020- No 500mg Take [address] en -27 04- tablet [facility] - (TYLENOL) 00:00: 23:59 (500 mg Medi rah 500 MG 00 :00 total) by Center tablet mouth every 6 (six) hours as needed for Pain for up to 10 days. acetaminoph 2020-0 2020- No 1{tbl} Take [address] en-codeine 7-16 - tablet by [facility] - (TYLENOL-CO 00:00: 23:59 mouth Medi rah DEINE #3) 00 :00 every 6 Center 300-30 mg (six) per tablet hours as needed for Pain for up to 10 days. Max Daily Amount: 4 tablets topiramate 2020-0 2020- No 25mg QD Take [address] (QUDEXY XR) 04-18 by mouth [facility] - 25 mg CSpX 11:17: 00:00 daily. Medi rah 02 :00 Center amLODIPine Yes 2.5mg QD Take 2.5 Ho [...] Source Systolic blood 2020-04-27 10:59:00 98 mm[Hg] [facility] Diastolic blood 2020-04-27 10:59:00 50 mm[Hg] [facility] Heart rate 2020-04-27 10:59:00 58 /min [facility] Body temperature 2020-04-27 10:59:00 36.83 Jessica [facility] Respiratory rate 2020-04-27 10:59:00 18 /min [facility] Oxygen saturation in 2020-04-27 10:59:00 98 /min [facility] Arterial blood by Medical Ce nter Pulse oximetry Body height 2020-04-26 06:00:00 157.5 cm [facility] Body weight 2020-04-26 06:00:00 95.936 kg [facility] BMI 2020-04-26 06:00:00 38.67 kg/m2 [facility] Procedures Procedure Date / Time Performed Performing Clinician Deepti godoy ARRYTHMIA IMPLANT REPORT 2020-05-09 14:21:41 Provider, Default C [facility] - - [facility] ARRYTHMIA IMPLANT REPORT 2020-04-28 10:40:58 Provider, Default C [facility] - - [facility] RHYTHM STRIP - SCAN 2020-04-28 10:40:57 Provider, Default [facility] POCT-GLUCOSE METER 2020-04-27 11:03[facility] 2020-04-27 05:33:00 [facility] BASIC [facility]ABOLIC PANEL 2020-04-27 04:47:00 Katy Waite [facility] ([address] [place] [address] CBC W/PLT COUNT & AUTO 2020-04-27 04:47:00 Katy Waite [facility] POCT-GLUCOSE METER 2020-04-26 23:56:00 MansoorLi, [facility] ECG 12-LEAD 2020-04-26 20:20:42 Unknown, Hl7 [facility] POCT-GLUCOSE METER 2020-04-26 17:33:00 [facility] TISSUE EXAM 2020-04-26 10:59:00 Hemanth [facility] LAPAROSCOPY,REMOVAL 2020-04-26 07:45:00 Dana Perla I [facility] - GASTRIC BAND [facility] ROBOTIC 2020-04-26 07:45:00 Dana Perla [facility] - LAPAROSCOPY,ESOPHAGOJEJU [facility] NOSTOMY ROBOTIC 2020-04-26 07:45:00 Dana Perla [facility] - LAPAROSCOPY,HERNIORRHAPH [facility] Y HIATAL UPPER ENDOSCOPY 2020-04-26 07:45:00 [facility] TRANSFUSION SERVICE 2020-04-19 18:04:56 Provider, Default [facility] - REPORT - [facility] ECG 12-LEAD 2020-04-18 12:20:00 Unknown, Hl7 [facility] HEMOGLOBIN 2020-04-18 12:18:00 Fortunato Palma [facility] TYPE AND SCREEN, 2020-04-18 12:18:00 Fortunato Palma [facility] - AUTOMATED [facility] BUN AND CREATININE 2020-04-18 12:17:00 Fortunato Palma [facility] - W/RATIO [facility] ELECTROLYTE PANEL 2020-04-18 12:17:00 Fortunato Palma Gordoebony KAMINSKI S t [facility] Plan of Care Planned Activity Planned Date Details Comments Source Future Scheduled 2022-01-02 [facility]00 (procedure) [code = [facility] 68977247] Future Scheduled 2020-10-13 [facility]CREENING [facility]:00 (12+) [code = [facility] DEPRESSION SCREENING (12+)] Future Scheduled 2020-06-[address] [facility] - Test 00:00:00 (#1) [code = [facility] INFLUENZA VACCINE (#1)] Future Scheduled 2020-05-13 INFLUENZA VACCINE [facility] Test 00:00:00 [code = INFLUENZA VACCINE] Future Scheduled 1997 [facility] for [facility] 00:00:00 malignant neoplasm of cervix (procedure) [code = 639930163] Future [facility] malignant neoplasm Medical C enter of cervix (procedure) [code = 102971925] Future Scheduled 1992 COVID-19 VACCINE (1 [place] [facility] Test 00:00:00 of 2) [code = COVID-19 VACCINE (1 of 2)] Encounters Start End Encounter Admission Attending Care Care Encounter Source Date/Time Date/Time Type Type Clinicians Facility Department ID 2020-05-16 2020-05-16 Office Allyn [facility] [id number] 13:19:09 15:20:25 Visit Dana james AMBULATOR 350.1.13.21 G Y 0.2.7.2.686 [id number] 800 2020-05-02 2020-05-02 Office EMILY Queen [id number] 13:56:12 14:26:12 Visit Vimkristeni A AMBULATOR 350.1.13.21 Y 0.2.7.2.686 [id number] 2020-04-18 2020-04-18 Office Allyn [facility] [id number] 09:19:54 15:17:15 Visit Dana james AMBULATOR 350.1.13.21 G Y 0.2.7.2.686 [id number] 800 2019-12-02 2019-12-02 Office Allyn DIAZ [id number] 10:01:30 12:40:44 Visit Dana james AMBULATOR 350.1.13.21 G Y 0.2.7.2.686 [id number] 800 2019-07-16 2019-07-16 Office EMILY Tirado [id number] 13:41:03 15:14:00 Visit Madison AMBULATOR 350.1.13.21 Y 0.2.7.2.686 [id number] 800 2019-06-16 2019-06-16 Office Candida EMILY [id number] 10:26:53 13:08:19 Visit [place] AMBULATOR 350.1.13.21 Y 0.2.7.2.686 [id number] 800 2019-05-12 2019-05-12 Office EMILY Fry [id number] 12:57:08 15:12:24 Visit Darian AMBULATOR 350.1.13.21 Y 0.2.7.2.686 [id number] Results Test Description Test Time Test Comments Results Result Comments Source POC-Glucose meter 2020-04-27 11:14:00 Test Item Value Reference Range Interpretation Comme nts POC-Glucose Meter (test code = 86 mg/dL 70-110 : TESTED AT [facility] [address]) [place], [facility] 30: Manager E Learning/Techni ashish ID = [id number] for PALMIRA CHUN Lab Interpretation (test code = Normal 92307-1) [facility] [id number] 11:14:00 Test Item Value Reference Range Interpretation Comments POC-GLUCOSE METER 86 mg/dL 70-110 : TESTED A T [facility] [address] (KAYLA) (test code = THIERRY Hall [facility], 1538) [address]: Manager E Learning/Techni ashish ID = [id number] for SABAS CHAVEZ ECG 12 [id number] 07:26:27Interface, External Ris In - 04/27/2020 7:26 AM CDTVentricular Rate 61 BPMAtrial Rate 61 BPMP-R Interval 174 msQRS Duration 90 msQ-T Interval 522 msQTC Calculation(Bazett) 525 msP [place] 36 degreesR [place] 7 degreesT [place] 5 degreesNormal sinus rhythmProlonged QTAbnormal ECGWhen compared with ECG of 18-APR-2020 12:20,Sinus rhythm has replaced Electronic atrial pacemakerConfirmed by MD Yuan Roberto ([id number]) on 04/27/2020 7:26:23 AM [facility] metabolic [id number] 05:47:00 Test Item Value Reference Range Interpretation Comments Sodium (test code = 143 meq/L 967-339 6596-2) Potassium (test code = 4.1 meq/L 3.5-5.1 2823-3) Chloride (test code = 115 meq/L 98-107 H 2075-0) CO2 (test code = 25 meq/L 22-29 2028-9) BUN (test code = 9 mg/dL 7-21 3094-0) Creatinine (test code 0.76 mg/dL 0.57-1.25 = 2160-0) Glucose (test code = 109 mg/dL 70-105 H 2345-7) Calcium (test code = 8.2 mg/dL 8.4-10.2 L 37836-2) EGFR (test code = 83 mL/min/1.73 [place] [address]-8) NOT ACCURATE CREATININE CLEARANCE IN PREDICTING GLOMERULAR FILTRATION RATE . ESTIMATED GFR I S NOT APPLICABLE FOR DIALYSIS PATIENTS. MANE (test code = MANE) Manager E Learning ID - PIAYA L Lab Interpretation Abnormal (test code = 42596-8) [facility] METABOLIC [id number] 05:47:00 Test Item Value Reference Range Interpretation [...] S NOT APPLICABLE FOR DIALYSIS PATIEN TS. Manager E Learning ID - PIAYA LPOCT-GLUCOSE [id number] 05:44:00 Test Item Value Reference Range Interpretation Comments POC-GLUCOSE METER 97 mg/dL 70-110 : TESTED A T [facility] [address] (BEAKER) (test code = THIERRY Hall [facility], 1538) [address]: Manager E Learning/Techni ashish ID = [id number] for SAND ERS, POLO CBC with platelet count + automated [id number] 05:31:00 Test Item Value Reference Range Interpretation [...] 450 K/CU MM MPV (test code = 41686-2) 10.8 fL 9.4-12.3 nRBC (test code = [...] 2801) Lab Interpretation (test code = Abnormal 82849-4) [facility] W/PLT COUNT & AUTO [id number] 05:31:00 Test Item Value Reference Range Interpretation [...] PERCENT (BEAKER) (test code = 2801) POCT-GLUCOSE [id number] 00:07:00 Test Item Value Reference Range Interpretation Comments POC-GLUCOSE METER 150 mg/dL 70-110 H : TESTED A T [facility] [address] (BEAKER) (test code = [facility], 1538) [address]: Manager E Learning/Techni ashish ID = [id number] for POLO CHAVEZ POCT-GLUCOSE [id number] 17:50:00 Test Item Value Reference Range Interpretation Comments POC-GLUCOSE METER 161 mg/dL 70-110 H : TESTED A T [facility] [address] (BEAKER) (test code = [facility], 1538) [address]: Manager E Learning/Techni ashish ID = [id number] for Ramirez Tucker Tissue [id number] 16:24:00 Test Item Value Reference Range Interpretation Comments Case Report (test code Surgical Pathology = 104) Report Case: [id number] Authorizing Provider: Dana Perla Collected: 04/26/2020 10:59 AM MD Sal Ordering Location: [facility] PERIOPERATIVE Received: 04/26/2020 02:14 PM SERVICES Pathologist: Lea Santillan MD Specimen: Explant, Lap Gastric Band for I and D DIAGNOSIS (test code = p5oknCCfREHeq5jwSKVmzNN 3220) uZzEwMzNcZnRuYmpcdWMxIH xemgZuNNvlu0DmE0DbNvNxT FxhbnNpXGRlZmxhbmcxMDMz YMZ1yiUhOSIdAEutGHOtBSc tWk0qmFWlqXiaBoHhCGFzr3 esraBZaasjcTp2e7ieFIHyQ yL7hEEhYKnvT2ogohUcdALv QUMnZSq1cS98IHFtxH1lgDO sIDtccmVkMFxncmVlbjBcYm e8LNDlV9qlAJGwNHUkY8MkL X1eAFDqTko5GQJ0WXW4vMda y4P8qNXkbVXpuIltQoLxBmF sFRKDb6NfZSt3dMziQ2CwVC LmDuD6jXFsKOUpYSsdNXWoR EUvfoB1eD73TCjedmC7uTIz o6Unk42sy765yZ5vgUZcSTW 5DIVlPDEcnNWqJVNpFFY6VB BrjUAfR0u9VnEjaVVdF5H1H xHzcNNcC3Q3BoEmnZUjH5O1 QfAczHLmCNNogHZbVj3nsTT rqMFbub8qfb74PWO2p9DpkD xxQEL4BTA5LpOjRk5bnJEzY QLtFR9hTpXukBSgEBRmhp38 vChcUHodzaYbcW2bHpMqAJI xrEFsQCBfLU9upRPzRAVchA 5ucmxjXHBnYnJkcmhlYWRcc YvfltAoBc9rzWsnNBB5ZMyd D3ofmM9vJaZ8BMwcR9rhgO7 uRPe1WAcyfUH7LAOxhB6dCO 2agjjwo1acNbUsFC6cwzrch 9hxByVeDD3mbev4f9ssKyLf UN8tqoxxt4mxUgNtQLarBJB lyyeqAUYmw7MzryuaCCSig5 PmO9XztDlnB47rwRviD43lQ TQgdSzutR0bcAcksG3xPuPi ZnMyMFxxbFxwbGFpblxmMFx mczIwXHBsYWluXGYxXGZzMj FeTM2yH3XWBPQIOzndG8TCE PMGMvZWGR0YABVEFR4QCeTE OlxwYXIgICAgICAgICAgIC0 mZ7NWTSDQRyKXIC9GTJhSNT 4IYANURRPeJKlSZ4MFHG9SF FkpXHBhclxwYXJccGFyfXtc yjCxWOqli8RgNBlnHDDzZM2 quQsfZVNdPW2xTOBqE5yyzW 7faio8MsEoERIqBsW6YSDxl iF9Dcf4BBPsAYcrb1iiq6Kp MSPwZPl0tYmiAdYkTZWgv0g zcyBcZmNoYXJzZXQwIEFyaW CoM073p0ulf6twdyNyeLW9U UPsXPK2PVgyfmHjrrF6LYjo oZLjDaM2QIfwuwRaMKwgpnW fhkXwCvf8BTCaP722TXF6bY fcu2njDIN4YJXvJVVqDkBsI z5vsFIxC873DDLxDICOQQGm lPz8HFArajIlgyXmyMDFs62 1F510y7kqKJGmasZbpTgPlg vev0stQ598QNVfkYOyzuNlB rWpGITelZQasBI1EHOwHJ5s ihwvXYqwIBxsBEMqkeF0FKM hwUHgB7AjLOZlTD2mopetLJ H7JWhtZJMsUYA2ZbJqSIVdx 4Xzwuc1UtHyvy3ows80HIZ0 b9KkiRujYRW8OOZ8IeJrPb5 rdLXnNNYvIU9jPxNpgRLgLD Crei97fVugMXozKOR9QIBlb nEis3Tcu6rkMuRdrnTfN3dq D3KfHLEbZONrAEBoIsXsbhA yq4Ypa2KlsEYkxGg2i9dyLA YsCWCjjUqds9rjKPT6ZXPfj KSkM3knrM3wTQBdNZ2vzvrt f5bdIXqtAGrfMXRbaEB4fqO 3TKEllOUtP0DymV6qHSYsAJ arYCNylku1NaWjAg5xeGVld TcyMFxzYmtwYWdlXHBnbmNv bnRccGduZGVjXHBsYWluXHB sYWluXGYwXGZzMjRccWxcbG FuZzEwMzNcaGljaFxmMVxkY fOaFNGlXCjxC0qwFwZjZxRd Acb9BBUblXArPXZxLak7EXD erWZaVAHAvTutpP0wLJZywT avhZ0bjFT0NEIjupMfiHXKb D2lBRYStU2bXmE5HiFzPpP1 MLP7WGVbtQRmsG4= CPT Code(s) (test code y7awkWVzHPFfnAVwCtQdSLL = 3357) pUHGcq8rkENDmiQUaDbRhZh NcZnRuYmpcdWMxXGRlZmYwe 2obr706bZPmi0sbAOMfZvA2 lULcNPTuxGXtW916r5jgc9j vquNxzVZ0UWCaLPX5LAxhuu FxrtT7URjxgXMlRcL5CZvtq eSrEZadnrMdvdLuIzy7EVMo N153VYJ2gCwse8laTLZ5XQR vSLXuGmCnYl2ddLAoV933NN NoCQLKZZIviSp8ECEjrhAdj eObjRADk528I801g5hzFSIm mmIppNkZwlyen2plO289LAW hcGVydzEyMjQwXHBhcGVyaD I4DFBaXO9aduluCoDqIX6dx zzcIwUhPI1mjsa2PuMyFN5i cmdiNzIwXGhlYWRlcnkwXGZ rp7CgbtbrXC5wT8Qio9W0sC 9maXRcZGVmdGFiNzIwXGZvc p2wnIZwPEgsu1FqTLZ8sxG8 pRZzmBTqFTZlDV51Qimgh9Q yLpftRCB4SWHbqxCsq2Ihg1 zmXwCwwgCiQ8viJ3NsZLBoP XKvCHNnSkEfebQsi7Wfi5Lh tAEumQm1i5qwPDEaKELdgPy iv5wxCKB6VDIvR9K6bAVba1 egWIpcOLBqxQF5qjiwSIcnA TJcptI0qfzrSCwiNBOnjHQ7 jsmaTWpgLDHsNmE9apmkEQg rQYNaEVD7ZJyrm591MXL4GC xzYmtwYWdlXHBnbmNvbnRcc GduZGVjXHBsYWluXHBsYWlu XGYwXGZzMjRccWxccGxhaW5 sEnBxPsIxTOwlSS5jBNBdB1 lzdUUdKXWzLMFeZ0boIcRsk P2njDhmOGasjfPpPPk6NpMc XHBhcn0= CLINICAL HISTORY (test m3lbeCBpEKDnxEBzCpQfXQU code = 3356) nIGEee7teJINmaRAvFsRzIq NcZnRuYmpcdWMxXGRlZmYwe 1jve967eJQmb4yuPDYrUnR9 tBGqRQEhaDLoO352JZKlMWi ze9afg5DiXTOxvYBxl9N2OU WHnyfqgGo3mFdeZ97uq2B6A ztxV7kzRKMrFTUxT0UuWS7z ULVsHxp9YRX8RJP8KWGvXTH mR8ZlEN3xKOTxnGEkHJw0v7 zalTtoUUNuUCN6r1yuZHggv eCtAU1nci1kxCg4c2jeuxVt HOVuIWZljBKJVLEwI1YcrAa tOn7cyWh3vTvcWijkCPD2Zi m2EU2pir71ozt4tQatAHAik fjnHcK8TBdkEVAqbwkoQNz9 MFxtYXJnbDcyMFxtYXJncjc yMFxtYXJndDcyMFxtYXJnYj kxSDcqOBGbSEZ6NUaey131X HT3CEmrt2rwc2tfvAGcBnn2 OHAhAwEwXbhqKEldx6Out7w lYPPeam1fZMP6fJMulNhwg3 R0lFDwIICdpCWykwUqHUVqJ pI6BGdaET9ldp37BFSrMXU0 lq2btCSsrPwkemBmqMGjDFq fJ4YlASYvt397SHOrG3XpKW Svd6Y4xdMzTqBxULVkdAC1w pY0VCYoFXy6iDRpyrI5gdNz rNAfG4ndnH08OiFfwKEkX0Z wiF84NsKosSErD8VueN56Za CnnFVmL1MviE16AlRtaFRrP OSbzJBkHv0jrPBiqZHzm7Tw nBVrXWeuM28pu822XRVlzwO dF7qtmXOyaqtobMEbytkaVJ xxjyE2JVi7xqJzrrczsGtlo GFpblxmMVxmczIwXGxhbmcx VQEmUDwpN0zeRrPeHBYesSq yKChpd0GgAVVrRLXrRnWnFU 9fStukHS2oTAYkcCfrzOvpC SBPdGhlciBoeXBlcmxpcGlk CI0lCYZppIfvZVQIYnB0amT kzNy6HVZqeQYgoOUgfJ0yBR BcbGluZSBIZWFydCBkaXNlY VMbTZZ3eaDePFVvNqlvRWMc cGFyfQ== SPECIMEN SOURCE (test j0lyzHPfGPVlqEHzIpOlUIZ code = 3377) kXVDzh7voRPLvlOIuSbXfSy NcZnRuYmpcdWMxXGRlZmYwe 3xyx608aHUtw5zfGBLdOtV5 gUHbVNLpdGNiL862m5ssa0m qbhUncID0QSGyBDV7RFraoq WeehR4MKqlkZZdBuN0UTcxy rEiZBepiuKnisMeMdb4LWCw X295FSN2pYkmf4zmLTO3YAA yUJLjLrMyDk2nyQNrI233JJ BkGJVDTVExxEl4TZHblzGqd nQfzREUp644O314v2ctKBDq hiNkbLyRtaqae7qaV666MCD hcGVydzEyMjQwXHBhcGVyaD V2ZZZjPA0jkmtdRnQuPI3yx yxwGlUlJG9cuuu4ZmKxNM7n cmdiNzIwXGhlYWRlcnkwXGZ ux2QruoqlZY0dD8Uhm3I6fS 9maXRcZGVmdGFiNzIwXGZvc y5vaSLlPEspo4SpJUA6vhK3 gBEzhOLsNLWvGM43Neezh0O gDptxLRS4UFXptsTbe1Yzs0 oiYsRlfcYnS0mrR6VgXYQgP IJrVMLgAdQvadWvz7Egz0Hp rWJohBg9x8tnTRCsHBDloOy eu5zpXNB3BXXjX5L8nPIvd7 rsGKwcFJVggXE0ohmhRXtiI HBqmeH0xugkXRfvPACajLZ4 hajdQAvrGBWdWkO5xrkcNXm aPSLtTQS8PIvgs583XND2OH xzYmtwYWdlXHBnbmNvbnRcc GduZGVjXHBsYWluXHBsYWlu XGYwXGZzMjRccWxccGxhaW5 mDkInPdOyIXdmBU1cYLUfZ1 kpvPTgVDAuQJKsI9dmQvZex N4rgGwzLLqqdoUlWYlgp6Nc aWNccGFyfQ== GROSS DESCRIPTION z4ykpGGjYEBmyPPpRhKuGLP (test code = 3366) qXGBpu3goUEYivRCySyObAa NcZnRuYmpcdWMxXGRlZmYwe 5cei222oEXfu8ikXRAsXgO3 oRMgRCPjvGOyW970g7fmj2i rhvAorZB7VJHqKDI9QXzwdf RyjrB5GWdbiCMkHrS9ZZwie nKwUBnmzyYwjhWaPiu6CXRd J773UJT1eIttu3xiJHH1YJL uHTKzMzYzUy7tbZUgH875UH EhWFDSKSMobEa4NKOwfvOms nSxzDESe367C148m5zbWMSm caBfpGlPwfbzm7xtF100UDB hcGVydzEyMjQwXHBhcGVyaD G3SZZnHS0qccjrPcOjSA8pu onzZkKqAB9sncp5LbVdDE5e cmdiNzIwXGhlYWRlcnkwXGZ ps5WmlcwoGT4oX3Veb1R7lL 9maXRcZGVmdGFiNzIwXGZvc q8unJXgOYpsw7PkJZL0ojW4 jINwrSYwOKSsTH89Ywsds8I gZeuiNOI7AXQtqjZxf7Cxg0 riAkRpzzZtX2ogQ0GhTIZsK HAxPFNxXuAiwdDro4Dgl1Gs xRNnnBc3r5nuRVXqVPXvoDd kn7kyQQC4UEAeX2V7gRHfj6 zpFMyuAEGlfIY3uypxYInlJ ZWxkpE2kwgmAMvlUPUxaUV7 wegcOGlxEKIvMfU6ikhvWXf mJAOqMPU0VSqkb573WVV3IR xzYmtwYWdlXHBnbmNvbnRcc GduZGVjXHBsYWluXHBsYWlu XGYwXGZzMjRccWxccGxhaW5 kPkKkKwXlFTxgJG7gALJzN2 vbjMLsQHWyJMQvU4enIzLui N3riOteZDaswqAwHKXkYGDk R6XxtsBmAUCbSQZcZUrqDmG eBTMen0d4oCU1cOZzbSM2rQ QyxYvkXnPqJI1lkLXmWH1iC ByhJZovurLbf1YgLO48vDDw kcOepvMuQtB1wPpvrdGeSSc rOJMmJSBnvZIoH8CgSDYwHW 5qGXfqv9DdiAUpDvKgGKLkE SIifRQfqoawHE67YTsrBT29 GGrrBiGqbSJ6hUCqFAYiXVP uP09ykY7vlJUgK8FkBLQ5MV AuMyBjbSBpbiBkaWFtZXRlc hE1lCy4HMD9aGApVoUxWQki byByZWNlaXZlZCBpcyBhIGN podK8uPXeDPIjznDEeKxzty cttuMkykSlDDAFf1D4DKKlN 8W9oTNeLWHtxFFmytacJuQp bSBpbiBkaWFtZXRlciBhbmQ iEK95KSXuDNyvEEcwcOeomE 4gIFRoZXJlIGlzIGEgMTYuN RKcgRPhdlPnUF7bgCkmDeze YM5bTEVeSHayCTFcUD6usDR qXMC6aHFyiHQcDCFcbFnfpS OqZsTbPVleBFPsdoMeWT0OJ DJjWQhnBGrdh3LdvNNbWCG3 wTJqQLTlk1JzcjGaJbLtEzJ cW3xLWujrXbGwHAA3PT48eP TumwzmQuF0CZ9rGjXnnSqaV HJhbmdlOiAwLTEwIGNjLiIg RSHkE7Jdr9JteDrepC0zviB iaHUpbyQ1TZgaox7ySK8iNO EuJ8Qhg56dATIrYRKkiOXzi GG7JRRgP4Eqb2Sve94xiA8m cYFqGBEetyMJjAAat8XlMXm yYXVuLCBNSFMsIFBBIChBU0 NQKVxwYXJccGFyXHBhcn0= MICROSCOPIC d8rahMPiNPRbpEGmDgQoYNK DESCRIPTION (test code xRVNzp6mmENBvmRUoWeHyEl = 3371) NcZnRuYmpcdWMxXGRlZmYwe 6vdv114vPVpz5nwRPQhLtS2 dEHaGUJdiGFbW473o8qqi6a kafDfxGV7EUOiIJV9XJhljk XgfwE6NBqegXEtFoH5CPkrz lWzLWhdxiUfyhYeXzm9XTQy I594GLE6fFycv2awFQN3DYU mPMEqNmEtDs5npSXeG594BK XdNQMVCDTmlZj4GGEdpoBtn oTmvRWMt418H546d6ccNEHy uuXbdHhFwyaob4gyH947YGO hcGVydzEyMjQwXHBhcGVyaD S8YFPbVN9rqvbfNtMxXX5ca dqoVrFyCG8vfdu2ZkRcOL4r cmdiNzIwXGhlYWRlcnkwXGZ tq4BewyxpTX2bY3Jql7Q5mZ 9maXRcZGVmdGFiNzIwXGZvc r6sdWTgSXmqo7BtCQN0iaU9 vIEpfLTgYMXhKH70Ljdtn5V nFhxsPAK8URFtnmDvf9Kqg1 jkXxKwmqHlQ4yzK7IeUWOuV GDwZRSoDwBipyCyt6Uwp2Jp uSZmjZz2e4dmDQFiRWUggEh lz0ecWGC6LYQoL9X1lSGqo6 voFBtiIOMprUP6gjfeBKufW ESddgY8lxzpCDmyHZYfaGN0 hiodSZwlEDGhNdI3ixhtFTz rVDXpMVZ6SRtav250GTC4CO xzYmtwYWdlXHBnbmNvbnRcc GduZGVjXHBsYWluXHBsYWlu XGYwXGZzMjRccWxccGxhaW5 bZaHtPjQkWXgvKK3fOQNsX7 fbmENvYIHpHYBdU1ikSbMpx U5uyCjoYQrotnFwFB6aPLut YXJ9 [facility] [id number] 16:24:00Surgical Pathology Report Case: [id number] Authorizing Provider: Dana Perla Collected: 04/26/2020 10:59 AM MD Sal [facility] Received: 04/26/2020 02:14 PM SERVICES Pathologist: Lea Santillan MD Specimen: Explant, Lap Gastric Band for I and D A. GASTRIC, GASTRIC BAND, REMOVAL: - GASTRIC BAND IDENTIFIED (GROSS ONLY) Signing Pathologist Direct Phone Line: [phone] signed by Lea Santillan MD on 04/26/2020 at 4:24 [id number] obesityOther hyperlipidemia Obstructive sleep apnea Heart disease, [...] The Port-A-Cath is inscribed with "lot number: [id number] part number: [id number] full range: 0-10 cc." A gross photograph is taken. No sections are submitted-gross only.KEVIN Sigala, MARLENE (ASC)N/AType and screen, [id number] 13:43:00 Test Item Value Reference Range Interpretation Comments ABO/RH AUTOMATED (BEAKER) (test A POSITIVE code = 2260) Ab Scrn (test code = 890-4) NEGATIVE [facility] 12:53:00 Test Item Value Reference Range Interpretation Comments Sodium (test code = 137 meq/L 254-236 8162-2) Potassium (test code = 4.2 meq/L 3.5-5.1 2823-3) Chloride (test code = 103 meq/L 98-107 2075-0) CO2 (test code = 2027-9) 26 meq/L 22-29 MANE (test code = MANE) Manager E Learning ID - PIAYA L Lab Interpretation (test Normal code = 06922-0) [facility] HospitalBUN and [id number] 12:53:00 Test Item Value Reference Range Interpretation [...] mL/min/1.73 [place] [address]-0) NOT ACCURATE CREATININE CLEARANCE IN PREDICTING GLOMERULAR FILTRATION RATE . ESTIMATED GFR I S NOT APPLICABLE FOR DIALYSIS PATIENTS. MANE (test code = MANE) Manager E Learning ID - PIAYA L Lab Interpretation Abnormal (test code = 48866-3) [facility] HospitalE[facility]OL[facility]TES2020-07-07 12:53:00 Test Item Value Reference Range Interpretation Comments SODIUM (BEAKER) (test code = 381) 137 meq/L 136-145 POTASSIUM (BEAKER) (test code = 4.2 meq/L 3.5-5.1 379) CHLORIDE (BEAKER) (test code = 382) 103 meq/L 98-107 CO2 (BEAKER) (test code = 355) 26 meq/L 22-29 Manager E Learning ID - GARTH LBUN AND CREATININE W/[id number] 12:53:00 Test Item Value Reference Range Interpretation [...] S NOT APPLICABLE FOR DIALYSIS PATIEN TS. Manager E Learning ID - GARTH [id number] 12:36:00 Test Item Value Reference Range Interpretation Comments Hemoglobin (test code = 13.9 11.2- 15.7 GM/DL 786-4) MANE (test code = MANE) Manager E Learning ID - [id number] Lab Interpretation (test Normal code = 51431-8) [facility]MO[facility]IN2020-[facility] 12:36:00 Test Item Value Reference Range Interpretation Comments HEMOGLOBIN (BEAKER) (test code = 13.9 GM/DL 11.2-15.7 410) Manager E Learning ID - [id number], CHEST, 2 [id number] 15:35:00Reason for Exam:- >bariatric surgery status; abdominal pain,LUQ, Gastroesophageal reflux disease,esophagitis presence not specificied, pre-operative clearanceFINAL REPORT History provided: Bariatric surgery, abdominal pain CHEST PA ANDLATERAL COMPARISON STUDY: 01/01/2019 Heart size normal. Dual lead left subclavian ICD. Lungs clear and vascularity normal. Signed: Jc Tobar MDReport Verified Date/Time: 08/26/2019 15:35:48 Reading Location: [facility] Diagnostic Imaging Reading Room [place] [address] 1.310.12 TISSUE [id number] 09:50:00Surgical Pathology Report Case: [id number] Authorizing Provider: Darian Fry MD Collected: 07/23/2019 0722 Ordering Location: [facility] Endoscopy Received: 07/23/2019 1333 Services Pathologist: [...] DYSPLASIA, MALIGNANCY Signing Pathologist Direct Phone Line: [phone] signed by Lea Santillan MD on 07/27/2019 at 9:50 [id number]. Biopsy gastric, description rule out H. Pylori. [...] evaluated Immunohistochemistry technical testing was performed at [facility], Pathology Laboratory where it was [...] to perform high complexity clinical laboratory testing.HEMOGLOBIN [id number] 12:55:00 Test Item Value Reference Range Interpretation Comments HEMOGLOBIN A1C (BEAKER) (test code = 4.8 % 4.3-6.1 368) LIPID [id number] 08:01:00 Test Item Value Reference Range Interpretation [...] 130-159 High 160-189 Very High >=190COMPREHENSIVE METABOLIC [id number] 08:01:00 Test Item Value Reference Range Interpretation [...] FOR DIALYSIS PATIEN TS. TSH/FREE T4 IF [id number] 06:11:00 Test Item Value Reference Range Interpretation Comments THYROID STIMULATING HORMONE 2.58 uIU/mL 0.35-4.94 (BEAKER) (test code = 772) VITAMIN B12 AND [id number] 06:11:00 Test Item Value Reference Range Interpretation [...] 0-0 (BEAKER) (test code = 413) URINALYSIS [id number] 02:49:00 Test Item Value Reference Range Interpretation Comments RBC UA (BEAKER) (test code = 519) < /HPF WBC UA (BEAKER) (test code = 520) 1 /HPF MUCUS (BEAKER) (test code = 1574) Many SQUAMOUS EPITHELIAL (BEAKER) (test 4 /HPF code = 516) URINALYSIS WITH MICROSCOPIC IF [id number] 02:46:00 Test Item Value Reference Range Interpretation [...] pg/mL 0-100 (test code = 700) TROPONIN [id number] 15:40:00 Test Item Value Reference Range Interpretation [...] acute neurological disease, and persistent tachyarrhythmia.BASIC METABOLIC [id number] 15:39:00 Test Item Value Reference Range Interpretation [...] m DATA TO CALCULA TE ESTIMATED GFR. [id number] 15:33:00 Test Item Value Reference Range Interpretation Comments MAGNESIUM (BEAKER) (test code = 2.0 mg/dL 1.6-2.6 627) RAD, CHEST, 1 VIEW, NON [id number] 15:29:00Reason for exam:->chest painIs the patient ?->UnknownFINAL REPORT TECHNIQUE: Frontal chest radiograph dated 01/01/2019. CLINICAL HISTORY: Chest pain COMPARISON STUDY: None IMPRESSION:Left-sided, dual-chamber defibrillator is in place. No pleural effusion or pneumothorax. Cardiomediastinal silhouette is normal in size. No pulmonaryedema. No fracture. Signed: Bg Zamudioeport Verified Date/Time: 01/01/2019 15:29:08 Reading Location: [facility] Radiology Reading Room [id number] 15:23:00 Test Item Value Reference Range Interpretation [...] for patients with mechanical heart valves. SCREEN, [id number] 15:23:00 Test Item Value Reference Range Interpretation Comments TEST URINE (BEAKER) (test Negative code = 583) CBC W/PLT COUNT & AUTO [id number] 15:15:00 Test Item Value Reference Range Interpretation [...] (BEAKER) (test code = 2801) CT, BRAIN/STROKE [id number] 14:33:00Reason for exam:->NUMBNESSReason for exam:->HEADACHEIs the patient [...] MDReport Verified Date/Time: 01/01/2019 14:33:00 Reading Location: [facility] Radiology Reading Room
[2020-10-29] MEDS ORDERED: FENTANYL CITR 100 MCG/2 ML ONE (15:32)
[2020-10-29] MEDS ORDERED: NA CHLORIDE 0.9% 1,000 ML ONE (15:32)
[2020-10-29] MEDS ORDERED: ONDANSETRON 4 MG/2 ML VIAL ONE (15:32)
[2020-10-29 15:40] LABS: Absolute Lymphocytes (CBC) 1.5 K/uL (0.7-4.9); Basophils % 0.3 % (0-1.3); Hematocrit 40.3 % (36.0-45.0); Lymphocytes % 12.2 % (15.3-44.8); MPV 8.7 fL (7.6-11.3); RBC Red Blood Cell Count 4.82 M/uL (3.86-4.86)
[2020-10-29 15:54] LABS: Potassium 3.5 mmol/L (3.5-5.1)
[2020-10-29 15:57] LABS: Urine Bacteria 20-50 /HPF (<20); Urine Mucus 3+ /HPF (NONE SEEN); Urine RBC <5 /HPF (NONE SEEN)
[2020-10-29 15:58] LABS: Urine Amorphous Sediment TRACE /HPF (NONE SEEN)
[2020-10-29 15:58] LABS: Urine Blood NEGATIVE (NEG); Urine Glucose NEGATIVE (NEG); Urine Protein 1+ (NEG); Urine pH 5.5 (5.0-7.0)
--- NOTE | 2020-10-29 16:41 | RAD REPORT ---
EXAM DESCRIPTION: CT - Abdomen Pelvis W Contrast - 10/29/2020 4:08 pm CLINICAL HISTORY: ABD PAIN, left-sided abdominal and flank pain COMPARISON: CT study June 16, 2020 TECHNIQUE: Biphasic, helical CT imaging of the abdomen and pelvis was performed following 100 ml non -ionic IV contrast. Oral contrast was given. All CT scans are performed using dose optimization technique as appropriate and may include automated exposure control or mA/KV adjustment according to patient size. FINDINGS: No suspicious findings in the lung bases. The liver, spleen, and pancreas show no suspicious findings. Gallbladder is absent. Biliary tree dila tation is not outside normal for a cholecystectomy patient. Symmetric renal function is seen with no hydronephrosis or suspicious renal mass. No pyelonephritis o r acute parenchymal process. No bladder abnormalities. No adrenal abnormalities. Uterus is absent. Ov arthur are absent, atrophic or obscured by isodense on opacified small bowel. No dilated bowel loops or bowel wall thickening. Gastric bypass surgical changes are present. Proxima l and distal anastomoses show no suspicious finding. No appendicitis findings. From cecum through mynor cending colon no acute finding is seen. A 7 cm long segment of proximal sigmoid colon shows circumfer ential wall thickening with significant luminal narrowing. The colon proximal to the involved portion is not dilated. There is edema and stranding in the adjacent fat. Mild diverticulosis is present in this region. No free air or pneumatosis. No abscess or abnormal fluid collection. No mass or bulky l ymphadenopathy. Fat only umbilical hernia present. No suspicious bony findings. IMPRESSION: Approximately 7 centimeter long segment of sigmoid colon showing wall thickening, lumina l narrowing and edematous/inflammatory stranding in the adjacent fat. Acute diverticulitis would be the most common etiology. Colon malignancy is not excluded and follow- up colonoscopy after medical management will likely be needed. No abscess, free air or other surgically emergent finding.
--- NOTE | 2020-10-29 17:03 | EDPHYS ---
Physician Documentation [facility] Name: Vanessa Gonzalez Age: 45 yrs Sex: Female : 1975 Arrival Date: 10/29/2020 Time: 12:05 Bed 7 Private MD: ED Physician Jazmine Posey HPI: 10/29 17:14 This 45 yrs old Female presents to ER via Ambulatory with complaints of Low kb Abd Pain, Headache. 17:16 The patient presents with abdominal pain in the left lower quadrant. Onset: The kb symptoms/episode began/occurred 3 day(s) ago. The symptoms do not radiate. Associated signs and symptoms: none. The symptoms are described as constant. Modifying factors: The symptoms are alleviated by nothing, the symptoms are aggravated by nothing. Severity of pain: At its worst the pain was moderate in the emergency department the pain is unchanged. The patient has not experienced similar symptoms in the past. The patient has not recently seen a physician. Historical: - Allergies: 12:18 Morphine; ll1 12:18 Ketorolac; ll1 12:18 ANYTHING THAT PROLONGS QT; ll1 - PMHx: 12:18 Anxiety; Depression; GERD; High Cholesterol; Hypertension; Pacemaker; prolonged QT ll1 interval; TIA; - PSHx: 12:18 HERNIA REPAIR, LAP BAND REMOVAL AND GASTRIC BYPASS; DEFIBRILLATOR; pacemaker; ll1 - Immunization history:: Flu vaccine is up to date. - Social history:: Smoking status: Patient denies any tobacco usage or history of. ROS: 17:16 Constitutional: Negative for fever, chills, and weight loss, Cardiovascular: Negative kb for chest pain, palpitations, and edema, Respiratory: Negative for shortness of breath, cough, wheezing, and pleuritic chest pain, Back: Negative for injury and pain, MS/Extremity: Negative for injury and deformity, Skin: Negative for injury, rash, and discoloration. 17:16 Abdomen/GI: Positive for abdominal pain, Negative for nausea, vomiting, and diarrhea. 17:16 Neuro: Positive for headache. Exam: 17:14 Constitutional: This is a well developed, well nourished patient who is awake, alert, kb and in no acute distress. Head/Face: Normocephalic, atraumatic. Chest/axilla: Normal chest wall appearance and motion. Nontender with no deformity. No lesions are appreciated. Cardiovascular: Regular rate and rhythm with a normal S1 and S2. No gallops, murmurs, or rubs. Normal PMI, no JVD. No pulse deficits. Respiratory: Lungs have equal breath sounds bilaterally, clear to auscultation and percussion. No rales, rhonchi or wheezes noted. No increased work of breathing, no retractions or nasal flaring. Back: No spinal tenderness. No costovertebral tenderness. Full range of motion. Skin: Warm, dry with normal turgor. Normal color with no rashes, no lesions, and no evidence of cellulitis. MS/ Extremity: Pulses equal, no cyanosis. Neurovascular intact. Full, normal range of motion. Neuro: Awake and alert, GCS 15, oriented to person, place, time, and situation. Cranial nerves II-XII grossly intact. Motor strength 5/5 in all extremities. Sensory grossly intact. Cerebellar exam normal. Normal gait. 17:14 Abdomen/GI: Inspection: abdomen appears normal, Bowel sounds: normal, in all quadrants, Palpation: soft, in all quadrants, moderate abdominal tenderness, in the left lower quadrant. Vital Signs: 12:19 BP 160 / 102; Pulse 94; Resp 17; Temp 98.4; Pulse Ox 97% ; Weight 78.47 kg; Height 5 ll1 ft. 4 in. (162.56 cm); Pain 9/10; 15:38 Pulse 71; Resp 16; Pulse Ox 100% on R/A; ph 17:01 BP 123 / 93; Pulse 72; Resp 18; Pulse Ox 100% on R/A; ph 12:19 Body Mass Index 29.70 (78.47 kg, 162.56 cm) ll1 MDM: 14:48 Patient medically screened. kb 17:00 Data reviewed: vital signs, nurses notes. Data interpreted: Pulse oximetry: on room air kb is 100 %. Interpretation: normal. Counseling: I had a detailed discussion with the patient and/or guardian regarding: the historical points, exam findings, and any diagnostic results supporting the discharge/admit diagnosis, lab results, radiology results, the need for outpatient follow up, a family practitioner, to return to the emergency department if symptoms worsen or persist or if there are any questions or concerns that arise at home. ED course: Pt has history of prolonged QT and doesn't want any medication that could exacerbate that condition. Will send home on Augmentin and Flagyl. Pt educated to return for worsening symptoms, new symptoms or any other concerns. Verbal understanding received. . 10/29 14:52 Order name: Basic Metabolic Panel; Complete Time: 15:56 kb 10/29 14:52 Order name: CBC with Diff; Complete Time: 15:49 kb 10/29 15:36 Order name: Urine Dipstick--Ancillary (enter results); Complete Time: 16:06 eb 10/29 15:36 Order name: Urine Microscopic Only; Complete Time: 16:06 eb 10/29 15:57 Order name: CREATININE WHOLE BLOOD; Complete Time: 16:06 EDMS 10/29 15:58 Order name: Urine Culture EDND 10/29 14:52 Order name: IV Saline Lock; Complete Time: 15:25 kb 10/29 14:52 Order name: Labs collected and sent; Complete Time: 15:25 kb 10/29 14:52 Order name: CT Abd/Pelvis - IV Contrast Only; Complete Time: 16:43 kb 10/29 14:52 Order name: Urine Dipstick-Ancillary (obtain specimen); Complete Time: 15:38 kb Administered Medications: 15:20 Drug: NS 0.9% 1000 ml Route: IV; Rate: 1000 ml; Site: right antecubital; ph 17:22 Follow up: Response: No adverse reaction; IV Status: Completed infusion; IV Intake: ph 1000ml 15:20 Drug: Zofran (Ondansetron) 4 mg Route: IVP; Site: right antecubital; ph 17:21 Follow up: Response: No adverse reaction ph 15:20 Drug: fentaNYL (PF) 25 mcg Route: IVP; Site: right antecubital; ph 17:21 Follow up: Response: No adverse reaction; Pain is decreased ph 17:12 Drug: Flagyl 500 mg Route: PO; ph 17:20 Follow up: Response: No adverse reaction ph 17:12 Drug: Rocephin 1 grams Route: IV; Rate: calculated rate; Site: right antecubital; ph 17:21 Follow up: Response: No adverse reaction; IV Status: Completed infusion ph Disposition: 10/29/20 17:02 Discharged to Home. Impression: Diverticulitis of intestine, part unspecified, without perforation or abscess without bleeding. - Condition is Stable. - Discharge Instructions: Diverticulitis, [id number]. - Prescriptions for Augmentin 875- 125 mg Oral Tablet - take 1 tablet by ORAL route every 12 hours for 10 days; 20 tablet. Flagyl 500 mg Oral Tablet - take 1 tablet by ORAL route every 8 hours for 10 days; 30 tablet. Zofran 4 mg Oral Tablet - take 1 tablet by ORAL route every 6 hours As needed; 20 tablet. Diclofenac Sodium 75 mg Oral Tablet, Delayed Release (E.C.) - take 1 tablet by ORAL route 2 times per day As needed; 30 tablet. - Medication Reconciliation Form, Thank You Letter, Antibiotic Education, Prescription Opioid Use, Work release form form. - Follow up: Emergency Department; When: As needed; Reason: Worsening of condition. Follow up: Private Physician; When: 2 - 3 days; Reason: Recheck today's complaints, Continuance of care, Re-evaluation by your physician. Addendum: 10/30/2020 20:13 Co-signature as Attending Physician, Jazmine Posey MD. m a2 Signatures: Dispatcher [employer] EDLizzette Larios, FLOR-C FLOR-Nhung Patricia RN RN Jazmine Posey MD MD ma2 Paula Reeves RN RN ll1 Corrections: (The following items were deleted from the chart) 10/29 15:25 14:52 Urine Test ordered. kb dh3 17:16 17:14 Constitutional: This is a well developed, well nourished patient who is awake, kb alert, and in no acute distress. Head/Face: Normocephalic, atraumatic. Chest/axilla: Normal chest wall appearance and motion. Nontender with no deformity. No lesions are appreciated. Cardiovascular: Regular rate and rhythm with a normal S1 and S2. No gallops, murmurs, or rubs. Normal PMI, no JVD. No pulse deficits. Respiratory: Lungs have equal breath sounds bilaterally, clear to auscultation and percussion. No rales, rhonchi or wheezes noted. No increased work of breathing, no retractions or nasal flaring. Back: No spinal tenderness. No costovertebral tenderness. Full range of motion. Skin: Warm, dry with normal turgor. Normal color with no rashes, no lesions, and no evidence of cellulitis. MS/ Extremity: Pulses equal, no cyanosis. Neurovascular intact. Full, normal range of motion. kb 17:24 17:02 10/29/2020 17:02 Discharged to Home. Impression: Diverticulitis of intestine, ph part unspecified, without perforation or abscess without bleeding. Condition is Stable. Forms are Medication Reconciliation Form, Thank You Letter, Antibiotic Education, Prescription Opioid Use. Follow up: Emergency Department; When: As needed; Reason: Worsening of condition. Follow up: Private Physician; When: 2 - 3 days; Reason: Recheck today's complaints, Continuance of care, Re-evaluation by your physician. kb
--- NOTE | 2020-10-29 17:03 | ER ---
Nurse's Notes [facility] Name: Vanessa Gonzalez Age: 45 yrs Sex: Female : 1975 Arrival Date: 10/29/2020 Time: 12:05 Bed 7 Private MD: Diagnosis: Diverticulitis of intestine, part unspecified, without perforation or abscess without bleeding Presentation: 10/29 12:19 Chief complaint: Patient states: Left sided abd pain and L back pain started Friday. ll1 Pressure with BM's and urination. Cough and chills started last night. Fever 100.7 at home. Coronavirus screen: Client denies travel out of the [place] in the last 14 days. Coronavirus screen: chills, fatigue, fever, headache, muscle pain, nausea, shaking with chills, sore throat, loss of taste or smell, vomiting. Client presents with at least one sign or symptom that may indicate coronavirus-19. Standard/surgical mask placed on the client. Ebola Screen: Patient denies travel to an Ebola-affected area in the 21 days before illness onset. Initial Sepsis Screen: Does the patient meet any 2 criteria? HR > 90 bpm. No. Patient's initial sepsis screen is negative. Does the patient have a suspected source of infection? Yes: Acute abdominal pain. Risk Assessment: Do you want to hurt yourself or someone else? Patient reports no desire to harm self or others. Onset of symptoms was October 27, 2020. 12:19 Method Of Arrival: Ambulatory ll1 12:19 Acuity: ANDREW 3 ll1 Historical: - Allergies: 12:18 Morphine; ll1 12:18 Ketorolac; ll1 12:18 ANYTHING THAT PROLONGS QT; ll1 - PMHx: 12:18 Anxiety; Depression; GERD; High Cholesterol; Hypertension; Pacemaker; prolonged QT ll1 interval; TIA; - PSHx: 12:18 HERNIA REPAIR, LAP BAND REMOVAL AND GASTRIC BYPASS; DEFIBRILLATOR; pacemaker; ll1 - Immunization history:: Flu vaccine is up to date. - Social history:: Smoking status: Patient denies any tobacco usage or history of. Screenin:47 Abuse screen: Denies threats or abuse. Denies injuries from another. Nutritional ph screening: No deficits noted. Tuberculosis screening: No symptoms or risk factors identified. Fall Risk None identified. Assessment: 15:36 General: Appears in no apparent distress. uncomfortable, Behavior is calm, cooperative, ph appropriate for age, Reports fever for 12-24 hours. Pain: Complains of pain in left low back Pain radiates to suprapubic area and left lower quadrant. Neuro: Level of Consciousness is awake, alert, obeys commands, Oriented to person, place, time, situation, Reports headache. Cardiovascular: Capillary refill < 3 seconds in bilateral fingers Patient's skin is warm and dry. Respiratory: Airway is patent Respiratory effort is even, unlabored, Respiratory pattern is regular, symmetrical. GI: Reports lower abdominal pain. : Reports pain in left lower quadrant(s) in lower back. Derm: Skin is intact, Skin is pink, warm \T\ dry. 16:21 Reassessment: Patient appears in no apparent distress at this time. Patient and/or ph family updated on plan of care and expected duration. Pain level reassessed. Patient is alert, oriented x 3, equal unlabored respirations, skin warm/dry/pink. 17:20 Reassessment: Patient appears in no apparent distress at this time. Patient and/or ph family updated on plan of care and expected duration. Pain level reassessed. Patient is alert, oriented x 3, equal unlabored respirations, skin warm/dry/pink. Vital Signs: 12:19 BP 160 / 102; Pulse 94; Resp 17; Temp 98.4; Pulse Ox 97% ; Weight 78.47 kg; Height 5 ll1 ft. 4 in. (162.56 cm); Pain 9/10; 15:38 Pulse 71; Resp 16; Pulse Ox 100% on R/A; ph 17:01 BP 123 / 93; Pulse 72; Resp 18; Pulse Ox 100% on R/A; ph 12:19 Body Mass Index 29.70 (78.47 kg, 162.56 cm) ll1 ED Course: 12:05 Patient arrived in ED. ds1 12:18 Arm band placed on. ll1 12:22 Triage completed. ll1 14:47 Nhung Ken, RN is Primary Nurse. ph 14:47 Patient has correct armband on for positive identification. Placed in gown. Bed in low ph position. Call light in reach. Side rails up X 1. Pulse ox on. NIBP on. Door closed. Noise minimized. Warm blanket given. 14:48 Lizzette Parry FNP-C is [facility]. kb 14:48 Jazmine Posey MD is Attending Physician. kb 15:22 Initial lab(s) drawn, by me, sent to lab. Inserted saline lock: 20 gauge in right dh3 antecubital area, using aseptic technique. Blood collected. 15:30 Urine collected: clean catch specimen, kaiser colored. 3 15:43 Urine Microscopic Only Sent. dh3 16:09 CT Abd/Pelvis - IV Contrast Only In Process Unspecified. EDMS 17:22 No provider procedures requiring assistance completed. IV discontinued, intact, ph bleeding controlled, No redness/swelling at site. Pressure dressing applied. Administered Medications: 15:20 Drug: NS 0.9% 1000 ml Route: IV; Rate: 1000 ml; Site: right antecubital; ph 17:22 Follow up: Response: No adverse reaction; IV Status: Completed infusion; IV Intake: ph 1000ml 15:20 Drug: Zofran (Ondansetron) 4 mg Route: IVP; Site: right antecubital; ph 17:21 Follow up: Response: No adverse reaction ph 15:20 Drug: fentaNYL (PF) 25 mcg Route: IVP; Site: right antecubital; ph 17:21 Follow up: Response: No adverse reaction; Pain is decreased ph 17:12 Drug: Flagyl 500 mg Route: PO; ph 17:20 Follow up: Response: No adverse reaction ph 17:12 Drug: Rocephin 1 grams Route: IV; Rate: calculated rate; Site: right antecubital; ph 17:21 Follow up: Response: No adverse reaction; IV Status: Completed infusion ph Intake: 17:22 IV: 1000ml; Total: 1000ml. ph Outcome: 17:02 Discharge ordered by . kb 17:23 Discharged to home ambulatory. ph 17:23 Condition: good 17:23 Discharge instructions given to patient, Instructed on discharge instructions, follow up and referral plans. medication usage, Demonstrated understanding of instructions, follow-up care, medications, Prescriptions given X 3. 17:24 Patient left the ED. ph Signatures: Dispatcher [employer] EDIL Lizzette Parry FNP-C FNP-Ckb Sanford, Demi 1 Nhung Ken RN RN Shayla Stephen dh3 Paula Reeves, RN RN ll1
[2020-10-29] MEDS ORDERED: metroNIDAZOLE 500 MG TABLET ONE (17:19)
[2020-10-29] MEDS ORDERED: CEFTRIAXONE/SWI 1gm 1 GM/10 ML SYR ONE (17:20)
[2020-10-29 17:31] VITALS: TEMP 98.4
[2020-10-29 17:32] VITALS: O2SAT 100
[2020-10-29 17:33] VITALS: BP 123/93
== END 2020-10-29 17:24 | disposition home or self-care (01) ==
LOC: ER 12:02
DX: K57.32 Diverticulitis of large intestine without perforation or abscess without bleeding (principal); I10 Essential (primary) hypertension; Z88.5 Allergy status to narcotic agent; Z88.8 Allergy status to other drugs, medicaments and biological substances; Z95.810 Presence of automatic (implantable) cardiac defibrillator
CPT/HCPCS: 96361; 87088; 85025; 87086; 80048; 36415; 82565; 74177; 96375; 96374; 99284; Q9967; J3010; J0696; J7030; J2405; 81003; 81015

== ENCOUNTER 2021-09-09 20:09 | Observation (INO) | payer OTHER ==
--- OUTSIDE RECORDS SUMMARY | 2021-09-09 20:13 | XMS REPORT | Continuity of Care Document ---
:1975 Author Organization [facility] t Address [address] Thakkar [address] [place] [id number] Care Team Providers Name Role Phone SAL PERLA Attending Clinician Unavailable Nilda Perla MD Attending Clinician Bernice ROBIN A Attending Clinician Mustapha FRY Attending Clinician Unavailable Candida GARCIA Attending Clinician Unavailable Ang THOMPSON Attending Clinician CECIL ROSARIO Attending Clinician Unavailable SAL PERLA Admitting Clinician Unavailable Mustapha FRY Admitting Clinician Unavailable RIA Admitting Clinician Unavailable Payers Payer Name Policy Type Policy Number Effective Date Expiration Date Rose DE LA ROSA [id number] 2018 00:00:00 HMO/POS/OPEN ACCESS Problems Condition Condition Condition Status Onset Resolution Last Treating Co mments Source Name Details Category Date Date Treatment Clinician Date S/P S/P Disease Active [facility] gastric gastric [address] [place] bypass bypass 00:00: of 04/26/20 04/26/20 00 Medicin e Allergies, Adverse Reactions, Alerts Allergy Allergy Status Severity Reaction(s) Onset Inactive Treating Comm ents Source Name Type Date Date Clinician Toradol Propensi Active Severe 2019- [facility] ty to [facility] adverse 00:00: of reaction 00 Medicin s to e drug KETOROLA Allergy Active High [facility] MORPHINE Allergy Active [facility] Ketorola Propensi Active Anaphylaxis Rash [facility] ty to 10-28 [place] adverse 00:00: of ine & reaction 00 Medicin Lido s to e drug Morphine Propensi Active SobSOB, [facility] ty to 10-28 vomit, [place] adverse 00:00: low BP of reaction 00 Medicin s to e drug Social History Social Habit Start Date Stop Date Quantity Comments Source Exposure to Not sure [facility] e SARS-CoV-2 (event) of Med icine History [facility] Alcohol Std Drinks of Med icine History [facility] Alcohol Binge of Medicine Sex Assigned At [facility] llege of Medicine Tobacco use and 2020-05-16 2020-05-16 Never used [facility] l[facility] exposure 00:00:00 00:00:00 of Medicine Alcohol intake 2020-05-16 2020-05-16 Lifetime [facility] 00:00:00 00:00:00 non-drinker of Medicine (finding) History [facility] 2019-05-12 2019-05-12 1 [facility] Alcohol Frequency 00:00:00 00:00:00 of Medi cine Smoking Status Start Date Stop Date Source Never smoker [facility] o f Medicine Medications Ordered Filled Start Stop Current Ordering Indication Dosage Frequency Signature Comments Components Source Medication Medication Date Date Medication? Clinician (SIG) Name Name Evolocumab Yes Inject Baylo r with 8-04 into the [place] Inf[facility]or 18:28: skin. of (REPATHA 16 Medicin PUSHTRONEX e SYSTEM) 420 MG/3.5ML SOCT Topiramate 2020- No 50mg Take 50 mg [facility] ER (QUDEXY -04 18- by mouth [facility] e[facility] XR) 25 MG 14:31: 00:00 daily. of CS24 12 :00 Medicin e Evolocumab Yes Inject Baylo r with 7-07 into the [place] Infus[facility] 14:31: skin. of (REPATHA 09 Medicin PUSHTRONEX e SYSTEM) 420 MG/3.5ML SOCT Evolocumab Yes Inject Baylo r with 7-07 into the [place] Infus[facility] 14:31: skin. of (REPATHA 09 Medicin PUSHTRONEX e SYSTEM) 420 MG/3.5ML SOCT alprazolam 2020-0 2020- No .5mg Take 0.5 [facility] (XANAX) 0.5 7-07 07-07 mg by Colleg e MG tablet 14:31: 00:00 mouth of 09 :00 nightly as Medicin needed for e Sleep. alprazolam 2020-0 Yes TK 1 T PO [facility] (XANAX XR) 6-25 QAM. College 0.5 MG XR 00:00: of tablet 00 Medicin e alprazolam 2020-0 Yes TK 1 T PO [facility] (XANAX XR) 6-25 QAM. [facility] 0.5 MG XR 00:00: of tablet 00 Medicin e alprazolam 2020-0 Yes TK 1 T PO [facility] (XANAX XR) 6-25 QAM. [facility] 0.5 MG XR 00:00: of tablet 00 Medicin e topiramate 2020-0 Yes TK 1 T PO [facility] (TOPAMAX) 4-14 QHS. [facility] 50 MG 00:00: of tablet 00 Medicin e topiramate 2020-0 Yes TK 1 T PO [facility] (TOPAMAX) 4-14 QHS. [facility] 50 MG 00:00: of tablet 00 Medicin e topiramate 2020-0 Yes TK 1 T PO [facility] (TOPAMAX) 4-14 QHS. [facility] 50 MG 00:00: of tablet 00 Medicin e alprazolam 2020-0 Yes .5mg Take 0.5 [place] [facility] (XANAX) 0.5 2-20 mg by College MG tablet 16:12: mouth of 20 nightly as Medicin needed for e Sleep. Evolocumab 2020-0 Yes Inject Baylo r with 2-20 into the [facility] Infus[facility] 16:12: skin. of (REPATHA 20 Medicin PUSHTRONEX e SYSTEM) 420 MG/3.5ML SOCT Topiramate 2020-0 Yes 50mg Take 50 mg [facility] (QUDEXY 2-20 by mouth Colle ge XR) 25 MG 16:12: daily. of CS24 20 Medicin e Evolocumab 2018-0 Yes Inject Baylo r with 7-31 into the [place] [facility] 23:18: skin. of (REPATHA 27 Medicin PUSHTRONEX e SYSTEM) 420 MG/3.5ML SOCT Evolocumab 2019-0 Yes Inject Baylo r with 7-31 into the [facility] Inf[facility] 23:18: skin. of (REPATHA 27 Medicin PUSHTRONEX e SYSTEM) 420 MG/3.5ML SOCT Evolocumab 2018-0 Yes Inject Baylo r with 7-31 into the [facility] Infus[facility] 23:18: skin. of (REPATHA 27 Medicin PUSHTRONEX e SYSTEM) 420 MG/3.5ML SOCT alprazolam Yes .5mg Take 0.5 [place] [facility] (XANAX) 0.5 7-31 mg by College MG tablet 23:11: mouth of 21 nightly as Medicin needed for e Sleep. alprazolam Yes .5mg Take 0.5 [facility] (XANAX) 0.5 7-31 mg by College MG tablet 23:11: mouth of 21 nightly as Medicin needed for e Sleep. alprazolam Yes .5mg Take 0.5 [place] [facility] (XANAX) 0.5 7-31 mg by College MG tablet 23:11: mouth of 21 nightly as Medicin needed for e Sleep. [facility] Yes 5mg Take 5 mg [facility] MG TABS 5-25 by mouth. [place] 00:00: of 00 Medicin e [facility] Yes TAKE ONE [place] [facility] MG TABS 5-25 (1) [place] 00:00: TABLET(S) of 00 BY MOUTH Medicin ONCE A e DAY. [facility] Yes 5mg Take 5 mg [facility] MG TABS 5-25 by mouth. [place] 00:00: of 00 Medicin e [facility] Yes 5mg Take 5 mg [facility] MG TABS 5-25 by mouth. [place] 00:00: of 00 Medicin e [facility] Yes TAKE ONE [place] [facility] MG TABS 5-25 (1) [place] 00:00: TABLET(S) of 00 BY MOUTH Medicin ONCE A e DAY. [facility] Yes TAKE ONE [place] [facility] MG TABS 5-25 (1) [place] 00:00: TABLET(S) of 00 BY MOUTH Medicin ONCE A e DAY. BYSTOLIC 5 2019-0 Yes 5mg Take 5 mg [facility] MG TABS 5-25 by mouth. [place] 00:00: of 00 Medicin e Vital Signs Vital Name Observation Time Observation Value Comments Source HEIGHT 2019-12-17 157.5 cm 00:00:00 WEIGHT 2019-12-17 95.936 kg 00:00:00 Systolic blood 2020-05-16 132 mm[Hg] [facility] Colleg e pressure 18:27:00 of Medicine Diastolic blood 2020-05-16 96 mm[Hg] [facility] Colle ge pressure 18:27:00 of Medicine Heart rate 2020-05-16 91 /min [facility] 18:27:00 of Medicine Body temperature 2020-05-16 36.94 Jessica [facility] 18:27:00 of Medicine Body height 2020-05-16 157.5 cm [facility] 18:27:00 of Medicine Body weight 2020-05-16 89.812 kg [facility] 18:27:00 of Medicine BMI 2020-05-16 36.21 kg/m2 [facility] 18:27:00 of Medicine Systolic blood 2020-05-16 132 mm[Hg] [facility] pressure 18:27:00 of Medicine Diastolic blood 2020-05-16 96 mm[Hg] [place] [facility] pressure 18:27:00 of Medicine Heart rate 2020-05-16 91 /min [facility] 18:27:00 of Medicine Body temperature 2020-05-16 36.94 Jessica [facility] 18:27:00 of Medicine Body height 2020-05-16 157.5 cm [facility] 18:27:00 of Medicine Body weight 2020-05-16 89.812 kg [facility] 18:27:00 of Medicine BMI 2020-05-16 36.21 kg/m2 [facility] 18:27:00 of Medicine Systolic blood 2020-05-02 118 mm[Hg] [facility] pressure 19:38:00 of Medicine Diastolic blood 2020-05-02 81 mm[Hg] [facility] Colle [facility] pressure 19:38:00 of Medicine Heart rate 2020-05-02 80 /min [facility] 19:38:00 of Medicine Body temperature 2020-05-02 36.78 Jessica [facility] 19:38:00 of Medicine Body height 2020-05-02 157.5 cm [facility] 19:38:00 of Medicine Body weight 2020-05-02 93.35 kg [facility] 19:38:00 of Medicine BMI 2020-05-02 37.64 kg/m2 [facility] 19:38:00 of Medicine Systolic blood 2020-05-02 118 mm[Hg] [facility] pressure 19:38:00 of Medicine Diastolic blood 2020-05-02 81 mm[Hg] [place] [facility] pressure 19:38:00 of Medicine Heart rate 2020-05-02 80 /min [facility] 19:38:00 of Medicine Body temperature 2020-05-02 36.78 Jessica [facility] 19:38:00 of Medicine Body height 2020-05-02 157.5 cm [facility] 19:38:00 of Medicine Body weight 2020-05-02 93.35 kg [facility] 19:38:00 of Medicine BMI 2020-05-02 37.64 kg/m2 [facility] 19:38:00 of Medicine HEIGHT 2019-12-17 157.5 cm 00:00:00 WEIGHT 2019-12-17 95.936 kg 00:00:00 Systolic blood 2020-04-18 142 mm[Hg] [facility] pressure 14:29:00 of Medicine Diastolic blood 2020-04-18 103 mm[Hg] [place] [facility] pressure 14:29:00 of Medicine Heart rate 2020-04-18 87 /min [facility] 14:29:00 of Medicine Body temperature 2020-04-18 36.67 Jessica [facility] 14:29:00 of Medicine Body height 2020-04-18 157.5 cm [facility] 14:29:00 of Medicine Body weight 2020-04-18 96.798 kg [facility] 14:29:00 of Medicine BMI 2020-04-18 39.03 kg/m2 [facility] 14:29:00 of Medicine Systolic blood 2020-04-18 142 mm[Hg] [facility] pressure 14:29:00 of Medicine Diastolic blood 2020-04-18 103 mm[Hg] [facility] pressure 14:29:00 of Medicine Heart rate 2020-04-18 87 /min [facility] 14:29:00 of Medicine Body temperature 2020-04-18 36.67 Jessica [facility] 14:29:00 of Medicine Body height 2020-04-18 157.5 cm [facility] 14:29:00 of Medicine Body weight 2020-04-18 96.798 kg [facility] 14:29:00 of Medicine BMI 2020-04-18 39.03 kg/m2 [facility] 14:29:00 of Medicine Heart rate 2019-12-02 85 /min [facility] 16:08:00 of Medicine Body temperature 2019-12-02 36.78 Jessica [facility] 16:08:00 of Medicine Body height 2019-12-02 157.5 cm [facility] 16:08:00 of Medicine Body weight 2019-12-02 103.511 kg [facility] 16:08:00 of Medicine BMI 2019-12-02 41.74 kg/m2 [facility] 16:08:00 of Medicine Systolic blood 2019-12-02 147 mm[Hg] [facility] pressure 16:08:00 of Medicine Diastolic blood 2019-12-02 103 mm[Hg] [facility] Colle [facility] pressure 16:08:00 of Medicine Heart rate 2019-12-02 85 /min [facility] 16:08:00 of Medicine Body temperature 2019-12-02 36.78 Jessica [facility] 16:08:00 of Medicine Body height 2019-12-02 157.5 cm [facility] 16:08:00 of Medicine Body weight 2019-12-02 103.511 kg [facility] 16:08:00 of Medicine BMI 2019-12-02 41.74 kg/m2 [facility] 16:08:00 of Medicine Systolic blood 2019-12-02 147 mm[Hg] [place] Colleg [facility] pressure 16:08:00 of Medicine Diastolic blood 2019-12-02 103 mm[Hg] [facility] Colle ge pressure 16:08:00 of Medicine Body height 2019-07-16 157.5 cm [facility] 20:45:00 of Medicine Body weight 2019-07-16 102.513 kg [facility] 20:45:00 of Medicine BMI 2019-07-16 41.34 kg/m2 [facility] 20:45:00 of Medicine Body height 2019-07-16 157.5 cm [facility] 20:45:00 of Medicine Body weight 2019-07-16 102.513 kg [facility] 20:45:00 of Medicine BMI 2019-07-16 41.34 kg/m2 [facility] 20:45:00 of Medicine Body height 2019-06-16 157.5 cm [facility] 16:27:00 of Medicine Body weight 2019-06-16 102.513 kg [facility] 16:27:00 of Medicine BMI 2019-06-16 41.34 kg/m2 [facility] 16:27:00 of Medicine Body height 2019-06-16 157.5 cm [facility] 16:27:00 of Medicine Body weight 2019-06-16 102.513 kg [facility] 16:27:00 of Medicine BMI 2019-06-16 41.34 kg/m2 [facility] 16:27:00 of Medicine Systolic blood 2019-05-12 161 mm[Hg] Patient stated [facility] Jocelyn ege pressure 18:22:00 that she rushed of Medicine to get her, takes BP medication. Denies chest pain, SOB, dizzy.. Patient stated she feels fine Diastolic blood 2019-05-12 106 mm[Hg] Patient stated [place] [facility] pressure 18:22:00 that she rushed of Medicine to get her, takes BP medication. Denies chest pain, SOB, dizzy.. Patient stated she feels fine Heart rate 2019-05-12 91 /min [facility] 18:22:00 of Medicine Body temperature 2019-05-12 36.83 Jessica [facility] 18:22:00 of Medicine Body height 2019-05-12 157.5 cm [facility] 18:22:00 of Medicine Body weight 2019-05-12 101.606 kg [facility] 18:22:00 of Medicine BMI 2019-05-12 40.97 kg/m2 [facility] 18:22:00 of Medicine Systolic blood 2019-05-12 161 mm[Hg] Patient stated [facility] Jocelyn ege pressure 18:22:00 that she rushed of Medicine to get her, takes BP medication. Denies chest pain, SOB, dizzy.. Patient stated she feels fine Diastolic blood 2019-05-12 106 mm[Hg] Patient stated [facility] pressure 18:22:00 that she rushed of Medicine to get her, takes BP medication. Denies chest pain, SOB, dizzy.. Patient stated she feels fine Heart rate 2019-05-12 91 /min [facility] 18:22:00 of Medicine Body temperature 2019-05-12 36.83 Jessica [facility] 18:22:00 of Medicine Body height 2019-05-12 157.5 cm [facility] 18:22:00 of Medicine Body weight 2019-05-12 101.606 kg [facility] 18:22:00 of Medicine BMI 2019-05-12 40.97 kg/m2 [facility] 18:22:00 of Medicine Procedures Procedure Date / Time Performed Performing Clinician Sour e VITAMIN B12 2019-12-02 17:22:[address] [facility] FERRITIN 2019-12-02 17:22:[address] [facility] HEMOGLOBIN A1C 2019-12-02 17:22:[address] [facility] VITAMIN B1 2019-12-02 17:22:[address] [facility] VITAMIN D 25 HYDROXY 2019-12-02 17:22:[address] [facility] [facility] 2019-12-02 17:22:00 [facility] IRON+TIBC+%SAT 2019-12-02 17:22:[address] [facility] Plan of Care Planned Activity Planned Date Details Comments Source Future Scheduled IRON, TIBC AND FERRITIN Ordered: [facility] Test PANEL [code = NOCPT] 12/02/2019 of Medi cine Future Scheduled VITAMIN B6 [code = [facility] Test 06127-7] of Medicine Future Scheduled MAMMOGRAM ANNUAL [code = [facility] Test MAMMOGRAM ANNUAL] of Medicin e Future Scheduled TETANUS SHOT (ADULT) [facility] Test [code = TETANUS SHOT of Medi cine (ADULT)] Future Scheduled HIV SCREENING [code = [facility] Test HIV SCREENING] of Medicine Future Scheduled CERVICAL CANCER [facility] camryn Test SCREENING 3 YEAR FOLLOW of edicine UP [code = CERVICAL CANCER SCREENING 3 YEAR FOLLOW UP] Future Scheduled FLU VACCINE > 6 MONTHS [facility] Test [code = FLU VACCINE > 6 of M edicine MONTHS] Future Scheduled BMI FOLLOW UP PLAN [code [facility] Test = BMI FOLLOW UP PLAN] of Med icine Future Scheduled MAMMOGRAM ANNUAL [code = [facility] Test MAMMOGRAM ANNUAL] of Medicin e Future Scheduled TETANUS SHOT (ADULT) [facility] Test [code = TETANUS SHOT of Medi cine (ADULT)] Future Scheduled HIV SCREENING [code = [employer] Test HIV SCREENING] of Medicine Future Scheduled CERVICAL CANCER [facility] C [facility]lege Test SCREENING 3 YEAR FOLLOW of M edicine UP [code = CERVICAL CANCER SCREENING 3 YEAR FOLLOW UP] Future Scheduled FLU VACCINE > 6 MONTHS [facility] [employer] [employer] Test [code = FLU VACCINE > 6 of M edicine MONTHS] Future Scheduled BMI FOLLOW UP PLAN [code [facility] Test = BMI FOLLOW UP PLAN] of Med icine Future Scheduled CBC W/O DIFF W PLT [code Ordered: [facility] Test = 6690-2] 05/02/2020 of Medicine Future Scheduled IRON, TIBC AND FERRITIN Ordered: [facility] Test PANEL [code = NOCPT] 05/02/2020 of Medi cine Future Scheduled MAMMOGRAM ANNUAL [code = [facility] Test MAMMOGRAM ANNUAL] of Medicin e Future Scheduled TETANUS SHOT (ADULT) [employer] [facility] Test [code = TETANUS SHOT of Medi cine (ADULT)] Future Scheduled HIV SCREENING [code = [employer] Test HIV SCREENING] of Medicine Future Scheduled CERVICAL CANCER [facility] Test SCREENING 3 YEAR FOLLOW of M edicine UP [code = CERVICAL CANCER SCREENING 3 YEAR FOLLOW UP] Future Scheduled FLU VACCINE > 6 MONTHS [facility] [employer] Test [code = FLU VACCINE > 6 of M edicine MONTHS] Future Scheduled BMI FOLLOW UP PLAN [code [facility] Test = BMI FOLLOW UP PLAN] of Med icine Future Scheduled MAMMOGRAM ANNUAL [code = [facility] Test MAMMOGRAM ANNUAL] of Medicin e Future Scheduled TETANUS SHOT (ADULT) [facility] Test [code = TETANUS SHOT of Medi cine (ADULT)] Future Scheduled HIV SCREENING [code = [employer] Test HIV SCREENING] of Medicine Future Scheduled CERVICAL CANCER [facility] C [facility] Test SCREENING 3 YEAR FOLLOW of M edicine UP [code = CERVICAL CANCER SCREENING 3 YEAR FOLLOW UP] Future Scheduled FLU VACCINE > 6 MONTHS [employer] Test [code = FLU VACCINE > 6 of M edicine MONTHS] Future Scheduled BMI FOLLOW UP PLAN [code [facility] Test = BMI FOLLOW UP PLAN] of Med icine Future Scheduled COMPREHENSIVE METABOLIC Ordered: [facility] Test PANEL [code = 54040-1] 05/12/2019 of Me dicine Future Scheduled CBC W/AUTO DIFF WITH Ordered: [facility] Test PLATELETS [code = 05/12/2019 of Medicin e 67945-7] Future Scheduled IRON [code = 2498-4] Ordered: [facility] Test 05/12/2019 of Medicine Future Scheduled THYROID PROFILE (T3U - Ordered: [facility] Test T4 - T7 - TSH) [code = 05/12/2019 of Ca dicine NOCPT] Future Scheduled FERRITIN [code = Ordered: [facility] Test 72823-9] 05/12/2019 of Medicine Future Scheduled FOLATE [code = 2284-8] Ordered: [facility] Test 05/12/2019 of Medicine Future Scheduled HEMOGLOBIN A1C [code = Ordered: [facility] Test 4548-4] 05/12/2019 of Medicine Future Scheduled PROTIME & PTT [code = Ordered: [facility] Test NOCPT] 05/12/2019 of Medicine Future Scheduled URINALYSIS, MACROSCOPIC Ordered: [facility] Test [code = NOCPT] 05/12/2019 of Medicine Future Scheduled VITAMIN A [code = Ordered: [facility] Test 2923-1] 05/12/2019 of Medicine Future Scheduled VITAMIN B1 [code = Ordered: [facility] r College Test 33123-0] 05/12/2019 of Medicine Future Scheduled VITAMIN B12 [code = Ordered: [facility] or [place] Test 2132-9] 05/12/2019 of Medicine Future Scheduled VITAMIN B6 [code = Ordered: [facility] r College Test 86231-4] 05/12/2019 of Medicine Future Scheduled VITAMIN D 25 HYDROXY Ordered: [facility] Test [code = 1989-3] 05/12/2019 of Medicine Future Scheduled LIPID PANEL [code = Ordered: [facility] or [place] Test 84426-8] 05/12/2019 of Medicine Future Scheduled MAMMOGRAM ANNUAL [code = [facility] Test MAMMOGRAM ANNUAL] of Medicin e Future Scheduled TETANUS SHOT (ADULT) [facility] Test [code = TETANUS SHOT of Medi cine (ADULT)] Future Scheduled BMI FOLLOW UP PLAN [code [facility] Test = BMI FOLLOW UP PLAN] of Med icine Future Scheduled HIV SCREENING [code = [facility] Test HIV SCREENING] of Medicine Future Scheduled CERVICAL CANCER [facility] Lynda cowan Test SCREENING 3 YEAR FOLLOW of M edicine UP [code = CERVICAL CANCER SCREENING 3 YEAR FOLLOW UP] Future Scheduled FLU VACCINE > 6 MONTHS [facility] College Test [code = FLU VACCINE > 6 of M edicine MONTHS] Future Scheduled MAMMOGRAM ANNUAL [code = [facility] Test MAMMOGRAM ANNUAL] of Medicin e Future Scheduled TETANUS SHOT (ADULT) [facility] [place] Test [code = TETANUS SHOT of Medi cine (ADULT)] Future Scheduled BMI FOLLOW UP PLAN [code [place] [employer] Test = BMI FOLLOW UP PLAN] of Med icine Future Scheduled HIV SCREENING [code = [employer] Test HIV SCREENING] of Medicine Future Scheduled CERVICAL CANCER [facility] Test SCREENING 3 YEAR FOLLOW of M edicine UP [code = CERVICAL CANCER SCREENING 3 YEAR FOLLOW UP] Future Scheduled FLU VACCINE > 6 MONTHS [employer] Test [code = FLU VACCINE > 6 of M edicine MONTHS] Future Scheduled MAMMOGRAM ANNUAL [code = [facility] Test MAMMOGRAM ANNUAL] of Medicin e Future Scheduled TETANUS SHOT (ADULT) [facility] Test [code = TETANUS SHOT of Medi cine (ADULT)] Future Scheduled BMI FOLLOW UP PLAN [code [facility] Test = BMI FOLLOW UP PLAN] of Med icine Future Scheduled HIV SCREENING [code = [employer] Test HIV SCREENING] of Medicine Future Scheduled CERVICAL CANCER [facility] Test SCREENING 3 YEAR FOLLOW of M edicine UP [code = CERVICAL CANCER SCREENING 3 YEAR FOLLOW UP] Future Scheduled FLU VACCINE > 6 MONTHS [employer] Test [code = FLU VACCINE > 6 of M edicine MONTHS] Future Scheduled FL UPPER GI W/SMALL 1 Occurrences [employer] [facility] Test BOWEL FOLLOW THRU [code starting of M edicine = 86889] 05/16/2020 until 11/16/2021 Future Scheduled FL ESOPHAGRAM COMPLETE 1 Occurrences [place] [facility] Test [code = 37904-5] starting of Medicine 05/12/2019 until 11/12/2020 Future Scheduled ELECTROCARDIOGRAM 1 Occurrences [facility] r College Test COMPLETE [code = 05166] starting of M edicine 05/12/2019 until 05/12/2020 Future Scheduled XR CHEST PA AND LATERAL 1 Occurrences [facility] Test [code = 36353-9] starting of Medicine 05/12/2019 until 05/11/2020 Future Scheduled ESOPHAGEAL 1 Occurrences [facility] Test MANOMETRY/MOTILITY [code starting of Medicine = NOCPT] 05/12/2019 until 11/11/2019 Encounters Start End Encounter Admission Attending Care Care Encounter Source Date/Time Date/Time Type Type Clinicians Facility Department ID 2021-07-17 Outpatient [facility] Surgery [id number] 21:58:59 DANA CURRY 2020-05-16 2020-05-16 Ashley Gruber [facility] [id number] 13:19:09 15:20:25 Visit es, Dana AMBULATOR 350.1.13.21 G Y 0.2.7.2.686 [id number] [facility] 2020-05-16 2020-05-16 Office Allyn BCM [id number] [facility] 13:19:09 15:20:25 Visit es, Dana AMBULATOR 350.1.13.21 College G Y 0.2.7.2.686 of [id number] [facility] 800 e 2020-05-02 2020-05-02 Office Trefisi, BCM [id number] 13:56:12 14:26:12 Visit Vimbai A AMBULATOR 350.1.13.21 Y 0.2.7.2.686 [id number] [facility] 2020-05-02 2020-05-02 Office [place], BCM [id number] [place] [address] 13:56:12 14:26:12 Visit Vimbai A AMBULATOR 350.1.13.21 College Y 0.2.7.2.686 of [id number] [facility] 800 e 2020-04-18 2020-04-18 Office Erinn-Ross BCM [id number] 09:19:54 15:17:15 Visit es, Dana AMBULATOR 350.1.13.21 G Y 0.2.7.2.686 [id number] [facility] 2020-04-18 2020-04-18 Office Erinn-Ross BC [id number] [facility] 09:19:54 15:17:15 Visit es, Dana AMBULATOR 350.1.13.21 College G Y 0.2.7.2.686 of [id number] [facility] 800 e 2020-04-18 2020-04-18 Outpatient [facility] [id number] [facility] 00:00:00 00:00:00 DANA CURRY 2020-04-18 2020-04-18 Outpatient [facility] [id number] [facility] 00:00:00 00:00:00 [id number] 2020-02-03 2020-02-03 Outpatient [facility] [id number] 5-2 SLE 00:00:00 00:00:00 [id number] 2019-12-02 2019-12-02 Office Allyn BARJAAS 1.2.840.114 [id number] 10:01:30 12:40:44 Visit es, Dana AMBULATOR 350.1.13.21 G Y 0.2.7.2.686 [id number] [facility] 2019-12-02 2019-12-02 Office ErinnAleeRoss BARAJAS 1.2.840.114 [id number] [facility] 10:01:30 12:40:44 Visit es, Dana AMBULATOR 350.1.13.21 College G Y 0.2.7.2.686 of [id number] [facility] 800 e 2019-07-16 2019-07-16 Office EMILY Tirado 1.2.840.114 [id number] 13:41:03 15:14:00 Visit [place] AMBULATOR 350.1.13.21 Y 0.2.7.2.686 [id number] [facility] 2019-07-16 2019-07-16 Office EMILY Tirado 1.2.840.[id number] [place] [address] 13:41:03 15:14:00 Visit [place] AMBULATOR 350.1.13.21 College Y 0.2.7.2.686 of [id number] [facility] 800 e 2019-06-16 2019-06-16 Office EMILY Tirado 1.2.840.114 [id number] 10:26:53 13:08:19 Visit [place] AMBULATOR 350.1.13.21 Y 0.2.7.2.686 [id number] [facility] 2019-06-16 2019-06-16 Office EMILY Tirado 1.2.840.[id number] [place] [address] 10:26:53 13:08:19 Visit [place] AMBULATOR 350.1.13.21 College Y 0.2.7.2.686 of [id number] [facility] 800 e 2019-05-12 2019-05-12 Office EMILY Fry 1.2.840.114 [id number] 12:57:08 15:12:24 Visit Darian AMBULATOR 350.1.13.21 Y 0.2.7.2.686 [id number] 800 2019-05-12 2019-05-12 Office EMILY Fry 1.2.840.114 [id number] [facility] 12:57:08 15:12:24 Visit Darian AMBULATOR 350.1.13.21 College Y 0.2.7.2.686 of [id number] [facility] 800 e Results Test Description Test Time Test Comments Results Result Comments Source POCT-GLUCOSE METER 2020-04-27 11:14:00 Test Item Value Reference Range Interpretation Comme nts POC-GLUCOSE METER (BEAKER) 86 mg/dL 70-110 : TESTED AT [facility] [address] [facility] (test code = 1538) JOHNNY Villarreal, [address]: Delivery Table Operator/Techni ashish ID = [id number] for PALMIRA CHUN BASIC METABOLIC [id number] 05:47:00 Test Item Value Reference Range Interpretation [...] S NOT APPLICABLE FOR DIALYSIS PATIEN TS. Delivery Table Operator ID - PIAYA LPOCT-GLUCOSE [id number] 05:44:00 Test Item Value Reference Range Interpretation Comments POC-GLUCOSE METER 97 mg/dL 70-110 : TESTED A T [facility] 6720 (BEAKER) (test code = THIERRY CURRY, 1538) [address]58[address]: Delivery Table Operator/Techni ashish ID = [id number] for POLO OBRIEN CBC W/PLT COUNT & AUTO [id number] 05:31:00 Test Item Value Reference Range Interpretation [...] PERCENT (BEAKER) (test code = 2801) POCT-GLUCOSE [id number] 00:07:00 Test Item Value Reference Range Interpretation Comments POC-GLUCOSE METER 150 mg/dL 70-110 H : TESTED A T [facility] 6720 (BEAKER) (test code = TH[place] R [place], 1538) [address]: Delivery Table Operator/Techni ashish ID = [id number] for POLO CHAVEZ POCT-GLUCOSE [id number] 17:50:00 Test Item Value Reference Range Interpretation Comments POC-GLUCOSE METER 161 mg/dL 70-110 H : TESTED A T [facility] 6720 (BEAKER) (test code = THIERRY R [facility], 1538) [address]: Delivery Table Operator/Techni ashish ID = [id number] for Ramirez Tucker TISSUE [id number] 16:24:00Surgical Pathology Report Case: [id number] Authorizing Provider: Dana Perez Collected: 04/26/2020 10:59 AM MD Sal [facility]ingLocation[facility] PER[facility] Received: 04/26/2020 02:14 PM SERVICES Pathologist: Lea Santillan MD Specimen: Explant, Lap Gastric Band for I and D A. GASTRIC, GASTRIC BAND, REMOVAL: - GASTRIC BAND IDENTIFIED (GROSS ONLY) Signing Pathologist Direct Phone Line: [phone] signed by Lea Santillan MD on 04/26/2020 at 4:24 [id number] obesityOther hyperlipidemia Obstructive sleep apnea Heart disease, [...] The Port-A-Cath is inscribed with "lot number: [id number] part number: [id number] full range: 0-10 cc." A gross photograph is taken. No sections are submitted-gross only.KEVIN Sigala, PA ([facility] [place]N/A [id number] 12:53:00 Test Item Value Reference Range Interpretation Comments SODIUM (BEAKER) (test code = 381) 137 meq/L 136-145 POTASSIUM (BEAKER) (test code = 4.2 meq/L 3.5-5.1 379) CHLORIDE (BEAKER) (test code = 382) 103 meq/L 98-107 CO2 (BEAKER) (test code = 355) 26 meq/L 22-29 Delivery Table Operator ID - GARTH PAUL AND CREATININE [id number] 12:53:00 Test Item Value Reference Range Interpretation [...] S NOT APPLICABLE FOR DIALYSIS PATIEN TS. Delivery Table Operator ID - PIAYA [id number] 12:36:00 Test Item Value Reference Range Interpretation Comments HEMOGLOBIN (BEAKER) (test code = 13.9 GM/DL 11.2-15.7 410) Delivery Table Operator ID - [id number] 23:47:24 Test Item Value Reference Range Interpretation Comments VITAMIN B-1 138 nmol/L 64-201 This test was developed and (test code = its performance 70458-1) characteristics determined by [facility] ([facility]). It has n ot beencleared or approved by the U.S. Food and Drug Admini stration (FDA).The FDA h as determined that such clear ance or approval is notnecessary . This test is used for clinic al purposes and should not chivo garded as investigational or for research. [facility] i s qualified toperform high complexity testing under t Clinical LaboratoryImpro vement Amendments (CLI A). TESTING PERFORM ED AT [facility] [employer] [facility]. [address] [facility] [address], [place] [address] [place] [address] CLIA NO: [id number] Unless Oth erwise Indicated, All Testing Performed At: Clinical Pathology [facility], [address] [place] [address] Laboratory Di maxine: Jarod Quintana M.D. CLIA Number [id number] Cap Accreditation N o. [id number] [facility] [id number] 01:54:35 Test Item Value Reference Range Interpretation Comments VITAMIN A LEVEL (test 0.40 mg/L 0.3-1.2 code = 2923-1) RETINYL PALMITATE 0.02 mg/L 0-0.1 (test code = 03187-7) INTERPRETATION STNRISK Normal Test developed and (test code = 95003-6) charac teristics determined by [facility]. S ee Compliance Stat ement B: [employer] TESTING PERFORM ED AT [facility] PATHOLOGISTS, [facility] [address], [place] [address] [place]. [id number] 1 CLIA NO. [id number] Unless Other page Indicated, All Testing Performed At: Clinical Pathol [facility], [address] [place] [address] Laboratory Dire ctor: Jarod romero M.D. CLIA Num kasey [id number] [place] o. [id number] [facility] D 25 [id number] 11:56:15 Test Item Value Reference Range Interpretation Comments VITAMIN D 25-HYDROXY SEE BELOW NG/ML L NOT E: (test code = 1989-3) 25-HYDR OXYVITAMIN D ASSAY INCLUDES 25-HYDROXYVITAM IN D2 AND D3. METH ODOLOGY IS CHEMILUMINES CENT IMMUNOASSAY. $$$$$ INTE RPRETIVE RANGES $$$$$PED IATRIC (<17 YEARS) . . . . . . . . . . . NG/ML 20-100ADULT: INSUFFICIENT . . . . . . . . . . . . . . NG/ML <20 SUBOPTIMAL . . . . . . . . . . . . . . . NG/ML 20-29 OPTIMAL . . . . . . . . . . . . . . . . . NG/ML 30-100 Unless Otherwise Indic ated, All Testing Per formed At: Clin ical [facility], [address] [place] [address] Laboratory Dire ctor: Jarod romero M.D. CLIA Numb er [id number] Cap Accreditation N o. Lab Interpretation Abnormal (test code = 37285-8) [facility] CenterIRON+TIBC+[id number] 10:20:21 Test Item Value Reference Range Interpretation Comments IRON (test code = See_Comment [Automate d message] 2498-4) The system [employer] generated this result transmitted ref erence range: 37 - 145 UG/DL. The reference r rehana was not used to interpret this result as normal/abnor mal. UIBC (test code = See_Comment [Automate d message] 2501-5) The system [employer] generated this result transmitted ref erence range: 112 - 34 7 UG/DL. The refe rence range was not u sed to interpret this result as normal/abnor mal. TIBC (test code = See_Comment [Automate d message] 33175-0) The system [employer] generated this result transmitted ref erence range: 250 - 45 0 UG/DL. The refe rence range was not u sed to interpret this result as normal/abnor mal. IRON SATURATION % (test 14 % 20-50 L Unless code = 2502-3) Otherwise Ind icated, All Testing Per formed At: [facility], [address] [place] [address] Laboratory Dire ctor: Jarod romero M.D. CLIA Num kasey [id number] [place]. [id number] Lab Interpretation Abnormal (test code = 18054-8) [facility] [id number] 10:20:02 Test Item Value Reference Range Interpretation Comments VITAMIN B-12 (test 533 PG/ML 200-950 Unless Otherwise code = 2132-9) Indicated, Al l Testing Performed At: [facility], [address] [place] [address] Laboratory D irector: Jarod romero M.D. CLIA Number [id number] [place]. [id number] [facility] CenterFERRITIN2020-02-21 10:20:02 Test Item Value Reference Range Interpretation Comments FERRITIN (test code = See_Comment H Unless 53403-3) Otherwise Indic ated, All Testing Per formed At: [facility], [address] [place] [address] Laboratory Dire ctor: Jarod romero M.D. CLIA Num kasey [id number] Cap Accreditation N o. [Auto mated message] The sy stem which generated this result transmit desmond reference range : 13 - 200 NG/ML. The reference range was not used to int erpret this result as normal/abnormal . Lab Interpretation Abnormal (test code = 71904-1) [facility] CenterHEMOGLOBIN [id number] 08:03:34 Test Item Value Reference Range Interpretation Comments HEMOGLOBIN A1C (test 5.5 % 4.2-5.6 Unless Otherwise code = 4548-4) Indicated, Al l Testing Performed At: [facility], [address] [place] [address] Laboratory D irector: Jarod romero M.D. CLIA Number [id number] Cap Accreditation N o. [facility] CenterRAD, CHEST, 2 [id number] 15:35:00Reason for Exam:->bariatric surgery status; abdominal pain,LUQ, Gastroesophageal reflux disease,esophagitis presence not specificied, pre-operative clearanceFINAL REPORT History provided: Bariatric surgery, abdominal pain CHEST PA ANDLATERAL COMPARISON STUDY: 01/01/2019 Heart size normal. Dual lead left subclavian ICD. Lungs clear and vascularity normal. Signed: Jc Tobar MDReport Verified Date/Time: 08/26/2019 15:35:48 Reading Location: [facility] Diagnostic Imaging Reading Room [place] [address] 1.310.12 TISSUE [id number] 09:50:00Surgical Pathology Report Case: [id number] Authorizing Provider: Darian Fry MD Collected: 07/23/2019 0722 Ordering Location: [facility] Endoscopy Received: 07/23/2019 1333 Services Pathologist: [...] DYSPLASIA, MALIGNANCY Signing Pathologist Direct Phone Line: [phone] signed by Lea Santillan MD on 07/27/2019 at 9:50 [id number]. Biopsy gastric, description rule out H. Pylori. [...] evaluated Immunohistochemistry technical testing was performed at [facility], Pathology Laboratory where it was [...] to perform high complexity clinical laboratory testing.HEMOGLOBIN [id number] 12:55:00 Test Item Value Reference Range Interpretation Comments HEMOGLOBIN A1C (BEAKER) (test code = 4.8 % 4.3-6.1 368) LIPID [id number] 08:01:00 Test Item Value Reference Range Interpretation [...] 130-159 High 160-189 Very High >=190COMPREHENSIVE METABOLIC [id number] 08:01:00 Test Item Value Reference Range Interpretation [...] FOR DIALYSIS PATIEN TS. TSH/FREE T4 IF [id number] 06:11:00 Test Item Value Reference Range Interpretation Comments THYROID STIMULATING HORMONE 2.58 uIU/mL 0.35-4.94 (BEAKER) (test code = 772) VITAMIN B12 AND [id number] 06:11:00 Test Item Value Reference Range Interpretation [...] 0-0 (BEAKER) (test code = 413) URINALYSIS [id number] 02:49:00 Test Item Value Reference Range Interpretation Comments RBC UA (BEAKER) (test code = 519) < /HPF WBC UA (BEAKER) (test code = 520) 1 /HPF MUCUS (BEAKER) (test code = 1574) Many SQUAMOUS EPITHELIAL (BEAKER) (test 4 /HPF code = 516) URINALYSIS WITH MICROSCOPIC IF [id number] 02:46:00 Test Item Value Reference Range Interpretation [...] pg/mL 0-100 (test code = 700) TROPONIN [id number] 15:40:00 Test Item Value Reference Range Interpretation [...] acute neurological disease, and persistent tachyarrhythmia.BASIC METABOLIC [id number] 15:39:00 Test Item Value Reference Range Interpretation [...] m DATA TO CALCULA TE ESTIMATED GFR. [id number] 15:33:00 Test Item Value Reference Range Interpretation Comments MAGNESIUM (BEAKER) (test code = 2.0 mg/dL 1.6-2.6 627) RAD, CHEST, 1 VIEW, NON [id number] 15:29:00Reason for exam:->chest painIs the patient ?->UnknownFINAL REPORT TECHNIQUE: Frontal chest radiograph dated 01/01/2019. CLINICAL HISTORY: Chest pain COMPARISON STUDY: None IMPRESSION:Left-sided, dual-chamber defibrillator is in place. No pleural effusion or pneumothorax. Cardiomediastinal silhouette is normal in size. No pulmonaryedema. No fracture. Signed: Bg Zamudio MDReport Verified Date/Time: 01/01/2019 15:29:08 Reading Location: [facility] Radiology Reading Room [id number] 15:23:00 Test Item Value Reference Range Interpretation [...] for patients with mechanical heart valves. SCREEN, [id number] 15:23:00 Test Item Value Reference Range Interpretation Comments TEST URINE (BEAKER) (test Negative code = 583) CBC W/PLT COUNT & AUTO [id number] 15:15:00 Test Item Value Reference Range Interpretation [...] (BEAKER) (test code = 2801) CT, BRAIN/STROKE [id number] 14:33:00Reason for exam:->NUMBNESSReason for exam:->HEADACHEIs the patient [...] MDReport Verified Date/Time: 01/01/2019 14:33:00 Reading Location: [facility] Radiology Reading Room
[2021-09-09] MEDS ORDERED: ASPIRIN 81 MG CHEWABLE TABLET ONE (20:26)
[2021-09-09] MEDS ORDERED: NITROGLYCERIN 1 GM PKT TD ONE (20:56)
[2021-09-09 20:59] LABS: Absolute Lymphocytes (CBC) 1.3 K/uL (0.7-4.9); Basophils % 0.5 % (0-1.3); Hematocrit 39.9 % (36.0-45.0); MPV 8.1 fL (7.6-11.3); RBC Red Blood Cell Count 4.72 M/uL (3.86-4.86)
[2021-09-09 21:01] LABS: Protime INR 0.96
--- NOTE | 2021-09-09 21:15 | RAD REPORT ---
EXAM DESCRIPTION: RAD - Chest Single View - 09/09/2021 8:57 pm CLINICAL HISTORY: CHEST PAIN Chest pain. COMPARISON: Chest Single View dated 06/16/2020; Chest Single View dated 06/12/2020; Chest Single View d ated 05/24/2020; Chest Single View dated 05/11/2020 FINDINGS: Portable technique limits examination quality. Mildly prominent interstitial lung markings. This may indicate interstitial pulmonary edema or viral infection. The heart is normal in size. Dual lead pacer/defibrillator device present.
[2021-09-09 21:22] LABS: ALT/SGPT 39 U/L (12-78); AST/SGOT 25 U/L (15-37); Albumin 3.8 g/dL (3.4-5.0); Alkaline Phosphatase 160 U/L (45-117); BUN Blood Urea Nitrogen 22 mg/dL (7-18); Bicarbonate 28 mmol/L (21-32); Bilirubin Direct < 0.1 mg/dL (0-0.2); Bilirubin Total 0.2 mg/dL (0.2-1.0); Glucose Level 104 mg/dL (74-106); Magnesium 2.1 mg/dL (1.8-2.4); NT PRO-BNP 108 pg/mL (<125); Potassium 3.7 mmol/L (3.5-5.1); Protein, Total 8.2 g/dL (6.4-8.2); Sodium Level 143 mmol/L (136-145); Troponin (Emerg Dept Use Only) < 0.02 ng/mL (0.0-0.045)
--- NOTE | 2021-09-09 21:32 | ER ---
Nurse's Notes [facility] Name: Vanessa Gonzalez Age: 45 yrs Sex: Female : 1975 Arrival Date: 09/09/2021 Time: 20:11 Bed 8 Private MD: Diagnosis: Chest pain, unspecified Presentation: 09/09 20:15 Chief complaint: Patient states: Left upper chest pain, pt feeling diaphoretic at 1900 ld1 this evening. Pt reporting nausea, and tingling in JENNIFER hands. Coronavirus screen: At this time, the client does not indicate any symptoms associated with coronavirus-19. Ebola Screen: No symptoms or risks identified at this time. 20:15 Method Of Arrival: Ambulatory ld1 20:22 Initial Sepsis Screen: Does the patient meet any 2 criteria? No. Patient's initial ld1 sepsis screen is negative. Does the patient have a suspected source of infection? No. Patient's initial sepsis screen is negative. Risk Assessment: Do you want to hurt yourself or someone else? Patient reports no desire to harm self or others. Onset of symptoms was September 09, 2021. 20:22 Acuity: ANDREW 3 ld1 Triage Assessment: 20:22 General: Appears in no apparent distress. comfortable, Behavior is calm, cooperative, ld1 appropriate for age. Pain: Complains of pain in anterior aspect of left upper chest Pain does not radiate. Pain currently is 6 out of 10 on a pain scale. at worst was 9 out of 10 on a pain scale. Quality of pain is described as throbbing, Pain began suddenly, Is continuous. EENT: No signs and/or symptoms were reported regarding the EENT system. Neuro: Level of Consciousness is awake, alert, obeys commands, Oriented to person, place, time, situation, Appropriate for age. Cardiovascular: Capillary refill < 3 seconds Patient's skin is warm and dry. Rhythm is regular. Cardiovascular: Reports chest pain, diaphoresis. Respiratory: Airway is patent Respiratory effort is even, unlabored, Respiratory pattern is regular, symmetrical. GI: Abdomen is round non-distended. : No signs and/or symptoms were reported regarding the genitourinary system. Derm:. Derm: No signs and/or symptoms reported regarding the dermatologic system. Musculoskeletal: No signs and/or symptoms reported regarding the musculoskeletal system. 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 N/A - Hysterectomy ld1 Historical: - Allergies: 20:22 ANYTHING THAT PROLONGS QT; ld1 20:22 Ketorolac; ld1 20:22 Morphine; ld1 - Home Meds: 20:22 AIMOVIG IM [Active]; amlodipine 2.5 mg tab 1 tab once daily [Active]; Bystolic 5 mg ld1 Oral tab 1 tab once daily [Active]; Protonix 40 mg Oral TbEC once daily [Active]; Xanax 0.5 mg Oral tab 1 tab daily [Active]; Repatha Syringe 140 mg/mL subcutaneous syrg 1 mL every 2 wks [Active]; - PMHx: 20:22 Anxiety; Depression; GERD; High Cholesterol; Hypertension; Pacemaker; prolonged QT ld1 interval; TIA; - PSHx: 20:22 Cholecystectomy; section; hysterectomy; Gastric bypass; ld1 - Immunization history:: Adult Immunizations up to date, Client reports receiving the 2nd dose of the Covid vaccine. - Social history:: Smoking status: Patient denies any tobacco usage or history of. Patient/guardian denies using alcohol, street drugs. Screenin:53 Abuse screen: Denies threats or abuse. Denies injuries from another. Nutritional tw5 screening: No deficits noted. Tuberculosis screening: No symptoms or risk factors identified. Fall Risk None identified. Assessment: 20:53 General: Reports " I started having chest pain around 7 Pm tonight. It feels like a lot tw5 of pressure on my chest and the deeper I breath the more pressure I feel." Patient states that this is only the second time she has felt something like this the last time she felt chest pressure similar was in the 2019 prior to having her pacemaker inserted. Pain: Complains of pain in chest Pain currently is 8 out of 10 on a pain scale. Quality of pain is described as heavy, pressure. 22:25 Reassessment: Patient and/or family updated on plan of care and expected duration. Pain tw5 level reassessed. Patient is alert, oriented x 3, equal unlabored respirations, skin warm/dry/pink. 09/10 11:34 Reassessment: Patient and/or family updated on plan of care and expected duration. Pain jd3 level reassessed. Patient is alert, oriented x 3, equal unlabored respirations, skin warm/dry/pink. pt discharged home with ride. reported understanding of discharge instructions. even and steady gait upon discharge. Vital Signs: 09/09 20:22 BP 163 / 105; Pulse 72; Resp 19; Temp 97.9; Pulse Ox 100% on R/A; Weight 92.08 kg; ld1 Height 5 ft. 2 in. (157.48 cm); Pain 6/10; 21:05 BP 132 / 119; Pulse 60; Resp 18; Pulse Ox 100% on R/A; tw5 22:25 BP 137 / 83; Pulse 60; Resp 12; Pulse Ox 100% on R/A; tw5 20:22 Body Mass Index 37.13 (92.08 kg, 157.48 cm) ld1 ED Course: 20:11 Patient arrived in ED. bp1 20:14 Willem Mac MD is Attending Physician. 7 20:22 Triage completed. ld1 20:22 Arm band placed on left wrist. ld1 20:53 Rain Horton is Primary Nurse. tw5 20:53 Awaiting lab results. tw5 20:53 Patient has correct armband on for positive identification. Placed in gown. Bed in low tw5 position. Call light in reach. Side rails up X 1. nuclear monitoring technician on. Pulse ox on. NIBP on. Door closed. Moved to private room. Warm blanket given. Verbal reassurance given. 20:53 Initial lab(s) drawn, by me, sent to lab. Inserted saline lock: 20 gauge in left tw5 antecubital area, using aseptic technique. Blood collected. Patient maintains SpO2 saturation greater than 95% on room air. 20:55 Troponin (emerg Dept Use Only) Sent. tw5 20:55 PT-INR Sent. tw5 20:55 NT PRO-BNP Sent. tw5 20:55 Magnesium Sent. tw5 20:55 LFT's Sent. tw5 20:55 CBC with Diff Sent. tw5 20:55 Basic Metabolic Panel Sent. tw5 20:57 XRAY Chest (1 view) In Process Unspecified. EDMS 21:04 Basic Metabolic Panel Sent. tw5 21:04 LFT's Sent. tw5 21:04 Magnesium Sent. tw5 21:05 NT PRO-BNP Sent. tw5 21:05 Troponin (emerg Dept Use Only) Sent. tw5 21:31 Enmanuel Kramer MD is Hospitalizing Provider. [facility] 22:25 Awaiting bed assignment. tw5 22:25 COVID-19/FLU A+B (Document "Date of Onset" if Symptomatic) Sent. tw5 09/10 00:05 No provider procedures requiring assistance completed. Patient admitted, IV remains in tw5 place. Administered Medications: 09/09 20:29 Drug: Aspirin Chewable Tablet 324 mg Route: PO; ld1 20:29 Follow up: Response: No adverse reaction ld1 20:55 Follow up: Response: No adverse reaction tw5 21:04 Drug: Nitro-Bid (nitroglycerin) Ointment 2 % 0.5 inches Route: Transdermal; Site: tw5 anterior chest wall; 22:27 Not Given (Patient Refused): Tylenol 1000 mg PO once tw5 Outcome: 21:31 Decision to Hospitalize by Provider. [facility] 09/10 00:05 Admitted to ER Hold. Please see [facility] for further documentation. tw5 Condition: good Instructed on the need for admit. 11:35 Patient left the ED. jd3 Signatures: Dispatcher [employer] Jesus Munoz RN RN jd3 Lesvia Álvarez Maurice, MD MD 7 Lyla Curiel RN RN wen1 Rain Horton 5 Corrections: (The following items were deleted from the chart) 09/09 20:24 20:22 PSHx: None; ld1 ld1
--- NOTE | 2021-09-09 21:32 | EDPHYS ---
Physician Documentation [facility] Name: Vanessa Gonzalez Age: 45 yrs Sex: Female : 1975 Arrival Date: 09/09/2021 Time: 20:11 Bed 8 Private MD: ED Physician Willem Mac HPI: 09/09 20:44 This 45 yrs old Female presents to ER via Ambulatory with complaints of Chest mh7 Pain > 30 y/o. 20:44 The patient or guardian reports chest pain that is located primarily in the anterior mh7 chest wall, left. Onset: just prior to arrival, today. 20:44 The pain does not radiate. Associated signs and symptoms: Pertinent positives: mh7 diaphoresis, nausea, shortness of breath, Pertinent negatives: abdominal pain, cough, diaphoresis, dizziness, headache, lower extremity pain, lower extremity swelling, lightheadedness, near syncope, palpitations, recent travel, syncope, vomiting. The chest pain is described as a pressure. Duration: The patient or guardian reports multiple episodes, that are intermittent, that wax and wane, with no pattern. Modifying factors: The symptoms are alleviated by nothing. the symptoms are aggravated by nothing. Severity of pain: At its worst the pain was moderate today, in the emergency department the pain is unchanged. 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 N/A - Hysterectomy ld1 Historical: - Allergies: 20:22 ANYTHING THAT PROLONGS QT; ld1 20:22 Ketorolac; ld1 20:22 Morphine; ld1 - Home Meds: 20:22 AIMOVIG IM [Active]; amlodipine 2.5 mg tab 1 tab once daily [Active]; Bystolic 5 mg ld1 Oral tab 1 tab once daily [Active]; Protonix 40 mg Oral TbEC once daily [Active]; Xanax 0.5 mg Oral tab 1 tab daily [Active]; Repatha Syringe 140 mg/mL subcutaneous syrg 1 mL every 2 wks [Active]; - PMHx: 20:22 Anxiety; Depression; GERD; High Cholesterol; Hypertension; Pacemaker; prolonged QT ld1 interval; TIA; - PSHx: 20:22 Cholecystectomy; section; hysterectomy; Gastric bypass; ld1 - Immunization history:: Adult Immunizations up to date, Client reports receiving the 2nd dose of the Covid vaccine. - Social history:: Smoking status: Patient denies any tobacco usage or history of. Patient/guardian denies using alcohol, street drugs. ROS: 20:44 Constitutional: Negative for fever, chills, and weight loss, Eyes: Negative for injury, mh7 pain, redness, and discharge, ENT: Negative for injury, pain, and discharge, Neck: Negative for injury, pain, and swelling. 20:44 Back: Negative for injury and pain, : Negative for injury, bleeding, discharge, and swelling, MS/Extremity: Negative for injury and deformity, Skin: Negative for injury, rash, and discoloration, Neuro: Negative for headache, weakness, numbness, tingling, and seizure, Psych: Negative for depression, anxiety, suicide ideation, homicidal ideation, and hallucinations, Allergy/Immunology: Negative for hives, rash, and allergies, Endocrine: Negative for neck swelling, polydipsia, polyuria, polyphagia, and marked weight changes, Hematologic/Lymphatic: Negative for swollen nodes, abnormal bleeding, and unusual bruising. 20:44 Abdomen/GI: Negative for abdominal pain, vomiting, diarrhea, constipation, abdominal cramps, abdominal distension, anorexia, dysphagia, hematemesis, black/tarry stool, rectal pain, rectal bleeding, bowel incontinence, flatulence. Exam: 20:44 Eyes: Pupils equal round and reactive to light, extra-ocular motions intact. Lids and mh7 lashes normal. Conjunctiva and sclera are non-icteric and not injected. Cornea within normal limits. Periorbital areas with no swelling, redness, or edema. Neck: Trachea midline, no thyromegaly or masses palpated, and no cervical lymphadenopathy. Supple, full range of motion without nuchal rigidity, or vertebral point tenderness. No Meningismus. Chest/axilla: Normal chest wall appearance and motion. Nontender with no deformity. No lesions are appreciated. Cardiovascular: Regular rate and rhythm with a normal S1 and S2. No gallops, murmurs, or rubs. Normal PMI, no JVD. No pulse deficits. Respiratory: Lungs have equal breath sounds bilaterally, clear to auscultation and percussion. No rales, rhonchi or wheezes noted. No increased work of breathing, no retractions or nasal flaring. Abdomen/GI: Soft, non-tender, with normal bowel sounds. No distension or tympany. No guarding or rebound. No evidence of tenderness throughout. Back: No spinal tenderness. No costovertebral tenderness. Full range of motion. Skin: Warm, dry with normal turgor. Normal color with no rashes, no lesions, and no evidence of cellulitis. MS/ Extremity: Pulses equal, no cyanosis. Neurovascular intact. Full, normal range of motion. Neuro: Awake and alert, GCS 15, oriented to person, place, time, and situation. Cranial nerves II-XII grossly intact. Motor strength 5/5 in all extremities. Sensory grossly intact. Cerebellar exam normal. Normal gait. Psych: Awake, alert, with orientation to person, place and time. Behavior, mood, and affect are within normal limits. 20:44 Constitutional: The patient appears in no acute distress, alert, awake, anxious. Vital Signs: 20:22 BP 163 / 105; Pulse 72; Resp 19; Temp 97.9; Pulse Ox 100% on R/A; Weight 92.08 kg; ld1 Height 5 ft. 2 in. (157.48 cm); Pain 6/10; 21:05 BP 132 / 119; Pulse 60; Resp 18; Pulse Ox 100% on R/A; tw5 22:25 BP 137 / 83; Pulse 60; Resp 12; Pulse Ox 100% on R/A; tw5 20:22 Body Mass Index 37.13 (92.08 kg, 157.48 cm) ld1 MDM: 21:29 Differential diagnosis: abnormal EKG, acute myocardial infarction, acute pericarditis, mh7 anxiety, coronary artery disease chest wall pain, congestive heart failure costochondritis, pericarditis, pleurisy, pneumonia, pneumothorax. HEART Score: History: Moderately Suspicious (1), ECG: Non specific repolarization disturbance / LBTB / PM (1), Age: < or = 45 years (0), Risk Factors: 1 or 2 risk factors (1), [Hypercholesterolemia] [Hypertension] Troponin: < or = 1 x Normal Limit (0). HEART Score: Total Score = 3. The patient was given aspirin in the Emergency Department. Data reviewed: vital signs, nurses notes, old medical records, lab test result(s), cardiac enzymes, CBC, electrolytes, EKG, radiologic studies, plain films. Data interpreted: Pulse oximetry: on room air is 100 %. Interpretation: normal. Counseling: I had a detailed discussion with the patient and/or guardian regarding: the historical points, exam findings, and any diagnostic results supporting the discharge/admit diagnosis, the presence of at least one elevated blood pressure reading (>120/80) during this emergency department visit, lab results, radiology results, the need for further work-up and treatment in the hospital. Response to treatment: the patient's symptoms have mildly improved after treatment. 21:[address] [facility] 09/09 20:22 Order name: Basic Metabolic Panel; Complete Time: 21:24 [facility] 09/09 20:22 Order name: CBC with Diff; Complete Time: 21:12 [facility] 09/09 20:22 Order name: LFT's; Complete Time: 21:24 [facility] 09/09 20:22 Order name: Magnesium; Complete Time: 21:24 [facility] 09/09 20:22 Order name: NT PRO-BNP; Complete Time: 21:24 [facility] 09/09 20:22 Order name: PT-INR; Complete Time: 21:12 [facility] 09/09 20:22 Order name: Troponin (emerg Dept Use Only); Complete Time: 21:24 [facility] 09/09 21:19 Order name: COVID-19/FLU A+B (Document "Date of Onset" if Symptomatic) [facility] 09/09 22:26 Order name: Urine Dipstick-Ancillary [facility] 09/10 00:51 Order name: Troponin I [facility] 09/10 03:47 Order name: CBC with Automated Diff [facility] 09/10 03:58 Order name: Comprehensive Metabolic Panel [facility] 09/10 03:58 Order name: Phosphorus [facility] 09/10 03:58 Order name: Troponin I [facility] 09/09 20:22 Order name: XRAY Chest (1 view); Complete Time: 21:17 [facility] 09/09 20:22 Order name: EKG; Complete Time: 20:23 [facility] 09/09 20:22 Order name: Cardiac monitoring; Complete Time: 20:26 [facility] 09/09 20:22 Order name: EKG - Nurse/Tech; Complete Time: 20:26 [facility] 09/09 20:22 Order name: IV Saline Lock; Complete Time: 20:55 [facility] 09/09 20:22 Order name: Labs collected and sent; Complete Time: 20:55 [facility] 09/09 20:22 Order name: O2 Per Protocol; Complete Time: 20:26 [facility] 09/09 20:22 Order name: O2 Sat Monitoring; Complete Time: 20: [facility] 09/09 22:08 Order name: CONS Physician Consult [facility] 09/10 03:58 Order name: Lipid Profile [facility] 09/10 03:58 Order name: T4 Free [facility] 09/10 03:58 Order name: Magnesium [facility] 09/10 03:58 Order name: Thyroid Stimulating Hormone [facility] Administered Medications: 20:29 Drug: Aspirin Chewable Tablet 324 mg Route: PO; ld1 20:29 Follow up: Response: No adverse reaction ld1 20:55 Follow up: Response: No adverse reaction tw5 21:04 Drug: Nitro-Bid (nitroglycerin) Ointment 2 % 0.5 inches Route: Transdermal; Site: tw5 anterior chest wall; 22:27 Not Given (Patient Refused): Tylenol 1000 mg PO once tw5 Disposition Summary: 09/09/21 21:31 Hospitalization Ordered Hospitalization Status: Observation [facility] Provider: Enmanuel Kramer Condition: Stable [facility] Problem: new [facility] Symptoms: have improved [facility] Bed/Room Type: Standard [facility] Location: [facility] HOLD(09/09/21 22:46) Room Assignment: ERHOLD-(09/09/21 22:46) Diagnosis - Chest pain, unspecified [facility] Forms: - Medication Reconciliation Form [facility] - SBAR form [facility] Signatures: Dispatcher [employer] EDLizzy Akbar RN RN Willem Mac MD MD [facility] Lyla Curiel RN RN ld1 Rain Horton tw5 Corrections: (The following items were deleted from the chart) 20:24 20:22 PSHx: None; ld1 ld1 22:46 21:31 [place]metry/Med[place]urg ([place] [facility] [place] 22:46 21:31 [facility] [place]
[2021-09-09] MEDS ORDERED: ACETAMINOPHEN 500 MG TAB ONE (22:20)
[2021-09-09 22:26] LABS: Urine Blood Negative (Negative); Urine Glucose Negative (Negative); Urine Protein Negative (Negative)
--- NOTE | 2021-09-09 22:42 | P.HP ---
Certification for Inpatient Patient admitted to: Observation With expected LOS: <2 Midnights Patient will require the following post-hospital care: None Practitioner: I am a practitioner with admitting privileges, knowledge of patient current condition, hospital course, and medical plan of care. Services: Services provided to patient in accordance with Admission requirements found in Title 42 Section 412.3 of the Code of Federal Regulations Patient History Date of Service: 09/09/21 Reason for admission: chest pain History of Present Illness: Ms. Gonzalez is a 45 yo F with prolonged QT syndrome s/p pacemaker 2019, HTN, HLD, GERD, anxiety + depression who presents with 8/10 intermittent left sided chest pressure beginning today at 6:30pm while she was sitting at the table after dinner. She also reports a needle like feeling. Reports diaphoresis, lightheadeness, nausea, vomiting, palpitations, SOB and belching. At its worst, the pain lasted for 5 minutes. Pain is currently a 5/10. 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 She was supposed to follow up with an outpatient stress test but has not been able to get time off of work. She received her booster shot on Friday and has had general malaise and fatigue since then. Allergies ketorolac Allergy (Verified 10/23/18 21:46) Hives/Rash, SOB morphine Allergy (Verified 10/23/18 21:46) Shortness of breath Home Medications: Evolocumab [Repatha Syringe] 1 dose SQ SEECOM 08/23/18 Amlodipine Besylate [Norvasc] 2.5 mg PO DAILY 10/23/18 - Past Medical/Surgical History Diabetic: No -: Hypertension -: Hyperlipidemia -: GERD -: Diverticulosis -: Depression with anxiety -: Prolonged QT syndrome -: Obesity -: Fatty liver -: Vitamin-D deficiency -: chronic pancreatitis -: Hysterectomy-2013 -: 2x V-[id number]-[id number]/2011 -: Carpal Tunnel-2000 -: Gall bladder-2005 -: Lap Band-2011 Psychosocial/ Personal History: She is . Has 3 children. 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 - Family History Mother -: Heart disease, Hypertension, Diabetes, Stroke, Other (see notes) Notes: High cholesterol Father -: Heart disease, Hypertension, Diabetes Brother -: Hypertension Notes: Liver Cirrhosis Sister -: Stroke Notes: High BP, [place] Leukemia - Social History Smoking Status: Never smoker Alcohol use: No CD- Drugs: No Caffeine use: Yes Place of Residence: Home Review of Systems 10-point ROS is otherwise unremarkable General: Sweats, Malaise, As per HPI Eyes: Unremarkable ENT: Unremarkable Respiratory: Shortness of Breath, As per HPI Cardiovascular: Chest Pain, Palpitations, Light Headedness, As per HPI Gastrointestinal: Nausea, Vomiting, As per HPI Genitourinary: Unremarkable Musculoskeletal: Unremarkable Integumentary: Unremarkable Neurological: Unremarkable Lymphatics: Unremarkable Physical Examination - Physical Exam General: Alert, In no apparent distress HEENT: Atraumatic, PERRLA, Mucous membr. moist/pink, EOMI, Sclerae nonicteric Neck: Supple, 2+ carotid pulse no bruit, No LAD, Without JVD or thyroid abnormality Respiratory: Clear to auscultation bilaterally, Normal air movement Cardiovascular: Regular rate/rhythm, Normal S1 S2 Gastrointestinal: Normal bowel sounds, No tenderness Musculoskeletal: No tenderness Integumentary: No rashes Neurological: Normal gait, Normal speech, Normal strength at 5/5 x4 extr, Normal tone, Normal affect Lymphatics: No axilla or inguinal lymphadenopathy - Studies Laboratory Data (last 24 hrs) 09/09/21 20:50: PT 11.0, INR 0.96 09/09/21 20:50: WBC 8.80, Hgb 13.2, Hct 39.9, Plt Count 225 09/09/21 20:50: Sodium 143, Potassium 3.7, BUN 22 H, Creatinine 0.80, Glucose 104, Magnesium 2.1, Total Bilirubin 0.2, AST 25, ALT 39, Alkaline Phosphatase 160 H Assessment and Plan - Problems (Diagnosis) (1) Chest pain Current Visit: No Status: Acute Qualifiers: Chest pain type: unspecified Qualified Code(s): R07.9 - Chest pain, unspecified (2) Prolonged QT syndrome Onset Date: 08/24/18 Current Visit: No Status: Chronic (3) GERD (gastroesophageal reflux disease) Onset Date: 05/27/16 Current Visit: No Status: Chronic Qualifiers: Esophagitis presence: without esophagitis Qualified Code(s): K21.9 - Gastro-esophageal reflux disease without esophagitis (4) Hyperlipidemia Onset Date: 01/03/17 Current Visit: No Status: Chronic Qualifiers: Hyperlipidemia type: unspecified Qualified Code(s): E78.5 - Hyperlipidemia, unspecified (5) Hypertension Onset Date: 05/27/16 Current Visit: No Status: Chronic Qualifiers: Hypertension type: essential hypertension Qualified Code(s): I10 - Essential (primary) hypertension - Plan cardiology consulted on tele, repeat EKG, trend troponins daily ASA, continue bystolic and amlodipine PRN NTG for pain lipid and thyroid panel pending reconcile and continue home medications DVT ppx Discharge Plan: Home Plan to discharge in: 24 Hours - Advance Directives Does patient have a Living Will: No Does patient have a Durable POA for Healthcare: No - Code Status/Comfort Care Code Status Assessed: Yes (full code ) Critical Care: No Time Spent Managing Pts Care (In Minutes): 70
[2021-09-09 23:35] LABS: SARS-COV-2 RT PCR NEGATIVE (NEGATIVE)
[2021-09-09 23:57] VITALS: BMI 42.0
[2021-09-09] MEDS ORDERED: NITROGLYCERIN 0.4 MG/TAB SL PRN (23:59)
[2021-09-09] MEDS ORDERED: ALPRAZOLAM 0.5 MG TABLET PO PRN (23:59)
[2021-09-09] MEDS ORDERED: HYDRALAZINE HCL 20 MG/ML VIAL IV PRN (23:59)
[2021-09-09] MEDS ORDERED: ACETAMINOPHEN 500 MG TAB PO PRN (23:59)
[2021-09-09] MEDS ORDERED: NEBIVOLOL HCL 5 MG TAB PO SCH (23:59)
[2021-09-10 03:43] LABS: Absolute Lymphocytes (CBC) 2.1 K/uL (0.7-4.9); Basophils % 0.6 % (0-1.3); Hematocrit 36.3 % (36.0-45.0); Lymphocytes % 27.7 % (15.3-44.8); MPV 8.1 fL (7.6-11.3); RBC Red Blood Cell Count 4.31 M/uL (3.86-4.86)
[2021-09-10 03:58] LABS: ALT/SGPT 31 U/L (12-78); AST/SGOT 21 U/L (15-37); Albumin 3.2 g/dL (3.4-5.0); Alkaline Phosphatase 142 U/L (45-117); BUN Blood Urea Nitrogen 21 mg/dL (7-18); Bicarbonate 27 mmol/L (21-32); Bilirubin Total 0.3 mg/dL (0.2-1.0); Glucose Level 101 mg/dL (74-106); HDL Cholesterol 55 mg/dL (40-60); LDL Cholesterol, Calculated 58 (<130); Magnesium 2.1 mg/dL (1.8-2.4); Phosphorus 4.7 mg/dL (2.5-4.9); Potassium 3.6 mmol/L (3.5-5.1); Protein, Total 7.3 g/dL (6.4-8.2); Sodium Level 143 mmol/L (136-145); Troponin I < 0.02 ng/mL (0.0-0.045)
[2021-09-10] MEDS ORDERED: ACETAMINOPHEN 500 MG TAB ONE (04:52)
[2021-09-10 05:22] VITALS: O2SAT 100
[2021-09-10] MEDS ORDERED: PANTOPRAZOLE 40MG TABLET PO SCH (06:30)
[2021-09-10] MEDS ORDERED: NEBIVOLOL HCL 5 MG TAB ONE (08:44)
[2021-09-10] MEDS ORDERED: AMLODIPINE 2.5 MG TAB ONE (08:44)
[2021-09-10] MEDS ORDERED: ENOXAPARIN 40 MG/0.4 ML SQ ONE (08:45)
[2021-09-10] MEDS ORDERED: ASPIRIN EC 81 MG TAB PO ONE (08:45)
[2021-09-10] MEDS ORDERED: PANTOPRAZOLE 40MG TABLET PO ONE (08:58)
[2021-09-10] MEDS ORDERED: NEBIVOLOL HCL 5 MG TAB PO SCH (09:00)
[2021-09-10] MEDS ORDERED: ENOXAPARIN 40 MG/0.4 ML SQ SCH (09:00)
[2021-09-10] MEDS ORDERED: ASPIRIN EC 81 MG TAB PO SCH (09:00)
[2021-09-10] MEDS ORDERED: AMLODIPINE 2.5 MG TAB PO SCH (09:00)
--- NOTE | 2021-09-10 11:11 | CON ---
Date of Consultation: 09/10/2021 Admitted on 09/09/[address] Eid. I saw the patient on 09/10/2021. Reason For Consultation: Chest pain. History Of Present Illness: Ms. Gonzalez is a 45-year-old, has a history of anxiety, depression, hypert ension, dyslipidemia, pacemaker because of prolonged QT interval, has had history of TIA, gastroesoph ageal reflux disease. She has also had a history of cholecystectomy, section, hysterectomy and gastric bypass. Came in with chest pain that started after she got her COVID booster. Denies na usea, vomiting, diaphoresis, PND, orthopnea, pedal edema, palpitations, or syncope. Denied any fever or chills. Past Medical History: Listed above. Allergies: SHE IS ALLERGIC TO KETORALAC AND MORPHINE. Review of Systems: Negative. Social History: Negative. Family History: Noncontributory. Medications: At home include amlodipine, Bystolic, Protonix, Xanax, and Veltassa. Physical Examination: Vital Signs: Stable, afebrile. HEENT: Negative. Neck: Supple with no bruit. Chest: Clear to auscultation and percussion. Cardiac: Revealed a regular rhythm and rate. No murmurs, gallops, or rubs. Abdomen: Benign. Extremities: Revealed no clubbing, cyanosis, or edema. Diagnostic Data: Fairly unremarkable. Impression And Plan: 1.Atypical chest pain. 2.The patient with history of long QT syndrome, status post defibrillator. 3.Hypertension. 4.Anxiety. 5.Dyslipidemia. Mrs. Gonzalez' defibrillator and pacemaker have been checked recently and not concerned in that regard. I think her pain is most likely a reaction to the COVID booster and could be musculoskeletal, but ce rtainly could be cardiac. I am comfortable with her going home today. She is already ruled out for an RI. I will make arrangements for her to have an appointment on echocardiogram and MPI in the near future. URBANO/JUANITO Voice ID: [id number] Report ID: [id number]
[2021-09-10 11:19] VITALS: BP 134/83
[2021-09-10 11:51] VITALS: TEMP 97.9
--- NOTE | 2021-09-17 23:13 | P.DS ---
Admission Date: 09/09/21 Discharge Date: 09/10/21 Disposition: ROUTINE DISCHARGE Discharge Condition: GOOD Reason for Admission: chest pain Hospital Course: Troponin remained negative, chest pain/pressure improved/resolved. Cardiology c onsulted and felt ACS less likely, recommended no further inpatient workup/evaluation. Vital Signs/Physical Exam: Temp Pulse Resp BP Pulse Ox 97.9 F 60 18 134/83 99 09/09/21 20:22 09/10/21 11:18 09/10/21 11:18 09/10/21 11:18 09/10/21 11:18 Laboratory Data at Discharge: WBC 7.80 K/uL (4.3-10.9) 09/10/21 03:20 Hgb 12.3 g/dL (12.0-15.0) 09/10/21 03:20 Hct 36.3 % (36.0-45.0) 09/10/21 03:20 Plt Count 195 K/uL (152-406) 09/10/21 03:20 PT 11.0 SECONDS (9.5-12.5) 09/09/21 20:50 INR 0.96 09/09/21 20:50 Sodium 143 mmol/L (136-145) 09/10/21 03:20 Potassium 3.6 mmol/L (3.5-5.1) 09/10/21 03:20 BUN 21 mg/dL (7-18) H 09/10/21 03:20 Creatinine 0.65 mg/dL (0.55-1.3) 09/10/21 03:20 Glucose 101 mg/dL (74-106) 09/10/21 03:20 Phosphorus 4.7 mg/dL (2.5-4.9) 09/10/21 03:20 Magnesium 2.1 mg/dL (1.8-2.4) 09/10/21 03:20 Total Bilirubin 0.3 mg/dL (0.2-1.0) 09/10/21 03:20 AST 21 U/L (15-37) 09/10/21 03:20 ALT 31 U/L (12-78) 09/10/21 03:20 Alkaline Phosphatase 142 U/L (45-117) H 09/10/21 03:20 Troponin I < 0.02 ng/mL (0.0-0.045) 09/10/21 03:20 Triglycerides 93 mg/dL (<150) 09/10/21 03:20 Cholesterol 132 mg/dL (<200) 09/10/21 03:20 HDL Cholesterol 55 mg/dL (40-60) 09/10/21 03:20 Cholesterol/HDL Ratio 2.40 09/10/21 03:20 Home Medications: Evolocumab [Repatha Syringe] 1 dose SQ SEECOM 08/23/18 Amlodipine Besylate [Norvasc] 2.5 mg PO DAILY 10/23/18 Alprazolam [Xanax Xr] 0.5 mg DAILY 09/09/21 Nebivolol HCl [Bystolic] 5 mg BID 09/09/21 Pantoprazole Sodium [Protonix] 40 mg DAILY 09/09/21 Physician Discharge Instructions: Your cardiac enzymes remained negative. You were evaluated by cardiology, and deemed stable for discharge home. Warehouse Laborer recommended to follow-up in their office for any further testing as an outpatient. Follow up with a Warehouse Laborer of your choice: ZAINA THOMPSON, SAV [address] [address] HOA THOMPSON, TO[address] [address] Diet: AHA Activity: Ad andre Followup: Vy Parker DO [Primary Care Provider] -
== END 2021-09-10 11:34 | disposition home or self-care (01) ==
LOC: ER 20:09 → ERHOLD 22:10
PROVIDERS: ADMIT Hospitalist; ATTEND Hospitalist
DX: R07.89 Other chest pain (principal); R94.31 Abnormal electrocardiogram [ECG] [EKG]; I10 Essential (primary) hypertension; F41.8 Other specified anxiety disorders; E78.5 Hyperlipidemia, unspecified; Z95.0 Presence of cardiac pacemaker; K21.9 Gastro-esophageal reflux disease without esophagitis; Z86.73 Personal history of transient ischemic attack (TIA), and cerebral infarction without residual deficits; Z98.84 Bariatric surgery status; Z20.822 Contact with and (suspected) exposure to COVID-19
CPT/HCPCS: 93005; 85025 ×2; 80048; 36415; 83735 ×2; 84100; 85610; 80061; 80076; 84443; 81003; 84484 ×3; 84439; 80053; 83880; 0240U; 71045; 94760; 99285; J1650; G0378 ×3

== ENCOUNTER 2021-12-03 09:14 | Emergency (ER) | payer BC, OTHER ==
--- OUTSIDE RECORDS SUMMARY | 2021-12-03 09:19 | XMS REPORT | Continuity of Care Document ---
:1975 Author Organization [facility] t Address [address] [place] [address] Care Team Providers Name Role Phone Parker, Alison Primary Care Physician SAL PERLA Attending Clinician Unavailable Regina RN, T Attending Clinician Unavailable Maximiliano THOMPSON Attending Clinician Ebrahim NETWORK CONTRACTOR Attending Clinician MAXIMILIANO Attending Clinician Unavailable Only, Db Test Attending Clinician Unavailable Geovanna RAY Attending Clinician Blanca Perla MD Attending Clinician Bernice ROBIN A Attending Clinician Mustapha FRY Attending Clinician Unavailable Candida GARCIA Attending Clinician Unavailable Ang THOMPSON Attending Clinician CECIL ROSARIO Attending Clinician Unavailable SAL PERLA Admitting Clinician Unavailable Mustapha FRY Admitting Clinician Unavailable RIA Admitting Clinician Unavailable Payers Payer Name Policy Type Policy Number Effective Date Expiration Date Rose DE LA ROSA [id number] 2018 00:00:00 HMO/POS/OPEN ACCESS Problems Condition Condition Condition Status Onset Resolution Last Treating Co mments Source Name Details Category Date Date Treatment Clinician Date S/P S/P Disease Active [facility] gastric gastric 05-21 [place] bypass bypass 00:00: of 04/26/20 04/26/20 00 Medicin e No known No known Disease Unive rs active active ity of problems problems [facility] Allergies, Adverse Reactions, Alerts Allergy Allergy Status Severity Reaction(s) Onset Inactive Treating Comm ents Source Name Type Date Date Clinician Ketorola Propensi Active Anaphylaxis 2019- U nivers c ty to 04-18 ity of adverse 00:00: [place] reaction 00 Medical s Branch KETOROLA DRUG Active High Anaphylaxis 2019- Uni vers C INGREDI 04-18 ity of 00:00: [place] 00 Medical Branch Toradol Propensi Active Severe 2019- [place] ty to 04-18 [place] adverse 00:00: of reaction 00 Medicin s to e drug KETOROLA Allergy Active High Sob 2018-[address] [facility] MORPHINE Allergy Active 2018-[address] [facility] MORPHINE DRUG Active High Hives 2018- Univers INGREDI 10-28 ity of 00:00: [place] 00 Medical Branch Morphine Drug Active Shortness of 2019-0 SobSOB, U nivers Allergy Breath 16 vomit, ity of 00:00: low [place] 00 BPbradyca Medical rdiaSOB, Branch vomit, low BP Ketorola Propensi Active Anaphylaxis 2018-0 Rash [facility] & ty to 10-28 [place] adverse 00:00: of ine & reaction 00 Medicin Lido s to e drug Morphine Propensi Active 2018-0 SobSOB, Baylo r ty to 10-28 vomit, [place] adverse 00:00: low BP of reaction 00 Medicin s to e drug Social History Social Habit Start Date Stop Date Quantity Comments Source History [facility] ge of Alcohol Std Medicine Drinks History [facility] of Alcohol Binge Medicine Exposure to Yes University of SARS-CoV-2 [facility] [place] [facility] (event) Branch Alcohol intake 2021-11-02 2021-11-02 Ex-drinker University of 00:00:00 00:00:00 (finding) [facility] Tobacco use and 2021-10-12 2021-10-12 Never used Universit y of exposure 00:00:00 00:00:00 [facility] History [facility] 2019-05-12 2019-05-12 1 [facility] of Alcohol Frequency 00:00:00 00:00:00 Medicin e Sex [birth year] Universit y of 00:00:00 00:00:00 [facility] Smoking Status Start Date Stop Date Source Unknown if ever smoked Universit y of [facility] Never smoker [facility] Medications Ordered Filled Start Stop Current Ordering Indication Dosage Frequency Signature Comments Components Source Medication Medication Date Date Medication? Clinician (SIG) Name Name benzonatate Yes [id number] 200mg Take 2 Univers 100 mg 1-21 capsules ity of capsule 00:00: by mouth [place] every 8 Medical (eight) Branch hours as needed for Cough. azelastine Yes [id number] 1{spray Use 1 Univers 137 mcg 1-21 } [place] in ity of (0.1 %) 00:00: each [place] nasal spray 00 nostril 2 Med ical (two) Branch times daily. Use in each nostril as directed fluticasone Yes [id number] 1{spray Use 1 Univers propionate 1-21 } [place] in ity o f 50 00:00: each [place] mcg/actuati 00 nostril Medic al on nasal daily. Branch spray benzonatate 0 Yes [id number] 200mg Take 2 Univers 100 mg 1-21 capsules ity of capsule 00:00: by mouth [place] 00 every 8 Medical (eight) Branch hours as needed for Cough. azelastine Yes [id number] 1{spray Use 1 Univers 137 mcg 1-21 } [place] in ity of (0.1 %) 00:00: each [place] nasal spray 00 nostril 2 Med ical (two) Branch times daily. Use in each nostril as directed fluticasone Yes [id number] 1{spray Use 1 Univers propionate 1-21 } [place] in ity o f 50 00:00: each [place] mcg/actuati 00 nostril Medic al on nasal daily. Branch spray amLODIPine 2020-10 Yes 2.5mg Take 2.5 Un jeremy 5 mg tablet 2-31 mg by ity of 09:38: mouth. [place] [address] Medical Branch nebivoloL 5 2020-10 Yes 5mg Take 5 mg U nivers mg tablet 2-31 by mouth. ity o f 09:38: [address] ALPRAZolam 2020-10 Yes .5mg Take 0.5 Uni vers 0.5 mg 2-31 mg by ity of tablet 09:38: mouth. [address] amLODIPine 2020-10 Yes 2.5mg Take 2.5 Un jeremy 5 mg tablet 2-31 mg by ity of 09:38: mouth. [address] nebivoloL 5 2020-10 Yes 5mg Take 5 mg U nivers mg tablet 2-31 by mouth. ity o f 09:38: [address] ALPRAZolam 2020-10 Yes .5mg Take 0.5 Uni vers 0.5 mg 2-31 mg by ity of tablet 09:38: mouth. [address] No known 2020-10 No Univers medications 2-28 ity of 20:30: [address] REPATHA 2020-10 Yes Univers SURECLICK 1-29 ity of 140 mg/mL 00:00: [place] PnIj 00 [facility] REPATHA 2020-10 Yes Univers SURECLICK 1-29 ity of 140 mg/mL 00:[facility]: [facility] [address] [place] [address] pantoprazol 2020-10 Yes Univer s e 40 mg EC 1-23 ity of tablet 00:00: [address] pantoprazol 2020-10 Yes Univer s e 40 mg EC 1-23 ity of tablet 00:00: [address] Evolocumab 0 Yes Inject Baylo r with 8-04 into the [place] Infusor 18:28: skin. of (REPATHA 16 Medicin PUSHTRONEX e SYSTEM) 420 MG/3.5ML SOCT Topiramate 0 2020- No 50mg Take 50 mg [facility] ER (QUDEXY 7-07 07-07 by mouth Jocelyn ege XR) 25 MG 14:31: 00:00 daily. of CS24 12 :00 Medicin e Evolocumab 2019-0 Yes Inject Baylo r with 7-07 into the [place] Inf[facility] 14:31: skin. of (REPATHA 09 Medicin PUSHTRONEX e SYSTEM) 420 MG/3.5ML SOCT Evolocumab 2019-0 Yes Inject Baylo r with 7-07 into the [place] Infusor 14:31: skin. of (REPATHA 09 Medicin [...] e alprazolam 2020-0 Yes .5mg Take 0.5 [facility] (XANAX) 0.5 2-20 mg by College [...] Inject Baylo r with 7-31 into the [place] [facility] 23:18: skin. of (REPATHA 27 Medicin [...] MG/3.5ML SOCT alprazolam Yes .5mg Take 0.5 [facility] (XANAX) 0.5 7-31 mg by College MG tablet 23:11: mouth of 21 nightly as Medicin needed for e Sleep. alprazolam Yes .5mg Take 0.5 [facility] (XANAX) 0.5 7-31 mg by College MG tablet 23:11: mouth of 21 nightly as Medicin needed for e Sleep. alprazolam Yes .5mg Take 0.5 [facility] (XANAX) 0.5 7-31 mg by College MG tablet 23:11: mouth of 21 nightly as Medicin needed for e Sleep. [facility] Yes 5mg Take 5 mg [facility] MG TABS 5-25 by mouth. [place] 00:00: of 00 Medicin e [facility] Yes TAKE ONE [facility] MG TABS 5-25 (1) [place] 00:00: TABLET(S) of 00 BY MOUTH Medicin ONCE A e DAY. [facility] Yes 5mg Take 5 mg [facility] MG TABS 5-25 by mouth. [place] 00:00: of 00 Medicin e [facility] Yes 5mg Take 5 mg [facility] MG TABS 5-25 by mouth. [place] 00:00: of 00 Medicin e [facility] Yes TAKE ONE [facility] MG TABS 5-25 (1) [place] 00:00: TABLET(S) of 00 BY MOUTH Medicin ONCE A e DAY. [facility] Yes TAKE ONE [facility]acy MG TABS 5-25 (1) [place] 00:00: TABLET(S) of 00 BY MOUTH Medicin ONCE A e DAY. BYSTOLIC 5 2019-0 Yes 5mg Take 5 mg Ba ylor MG TABS 5-25 by mouth. [place] 00:00: of 00 Medicin e Vital Signs Vital Name Observation Time Observation Value Comments Source HEIGHT 2019-12-17 157.5 cm 00:00:00 WEIGHT 2019-12-17 95.936 kg 00:00:00 Systolic blood 2021-11-03 127 mm[Hg] [place] of [facility] 00:59:00 [facility] Diastolic blood 2021-11-03 84 mm[Hg] [place] o f pressure 00:59:00 [facility] Heart rate 2021-11-03 64 /min [facility] 00:59:00 [facility] Body temperature 2021-11-03 36.61 Jessica [facility] 00:59:00 [facility] Respiratory rate 2021-11-03 19 /min [facility] 00:59:00 [facility] Body weight 2021-11-03 97.07 kg [facility] 00:59:00 [facility] BMI 2021-11-03 39.14 kg/m2 [facility] 00:59:00 [facility] Oxygen saturation 2021-11-03 98 /min [facility] Arterial blood 00:59:00 [facility] by Pulse oximetry [place] Systolic blood 2020-05-16 132 mm[facility]Hg[facility] Diastolic blood 2020-05-16 96 mm[Hg] [facility] ge pressure 18:27:00 of Medicine Heart rate 2020-05-16 91 /min [facility] 18:27:00 of Medicine Body temperature 2020-05-16 36.94 Jessica [facility] Jocelyn ege 18:27:00 of Medicine Body height 2020-05-16 157.5 cm [facility] 18:27:00 of Medicine Body weight 2020-05-16 89.812 kg [facility] 18:27:00 of Medicine BMI 2020-05-16 36.21 kg/m2 [facility] 18:27:00 of Medicine Systolic blood 2020-05-16 132 mm[Hg] [facility] Colleg e pressure 18:27:00 of Medicine Diastolic blood 2020-05-16 96 mm[Hg] [facility] ge pressure 18:27:00 of Medicine Heart rate 2020-05-16 91 /min [facility] 18:27:00 of Medicine Body temperature 2020-05-16 36.94 Jessica [facility] Jocelyn ege 18:27:00 of Medicine Body height 2020-05-16 157.5 cm [facility] 18:27:00 of Medicine Body weight 2020-05-16 89.812 kg [facility] 18:27:00 of Medicine BMI 2020-05-16 36.21 kg/m2 [facility] 18:27:00 of Medicine Systolic blood 2020-05-02 118 mm[Hg] [facility] Colleg e pressure 19:38:00 of Medicine Diastolic blood 2020-05-02 81 mm[Hg] [place] [facility] pressure 19:38:00 of Medicine Heart rate 2020-05-02 80 /min [facility] 19:38:00 of Medicine Body temperature 2020-05-02 36.78 Jessica [facility] Jocelyn ege 19:38:00 of Medicine Body height 2020-05-02 157.5 cm [facility] 19:38:00 of Medicine Body weight 2020-05-02 93.35 kg [facility] 19:38:00 of Medicine BMI 2020-05-02 37.64 kg/m2 [facility] 19:38:00 of Medicine Systolic blood 2020-05-02 118 mm[Hg] [place] [facility] e pressure 19:38:00 of Medicine Diastolic blood 2020-05-02 81 mm[Hg] [facility] Colle ge pressure 19:38:00 of Medicine Heart rate 2020-05-02 80 /min [facility] 19:38:00 of Medicine Body temperature 2020-05-02 36.78 Jessica [facility] Jocelyn ege 19:38:00 of Medicine Body height 2020-05-02 157.5 cm [facility] 19:38:00 of Medicine Body weight 2020-05-02 93.35 kg [facility] 19:38:00 of Medicine BMI 2020-05-02 37.64 kg/m2 [facility] 19:38:00 of Medicine HEIGHT 2019-12-17 157.5 cm 00:00:00 WEIGHT 2019-12-17 95.936 kg 00:00:00 Systolic blood 2020-04-18 142 mm[Hg] [facility] Colleg e pressure 14:29:00 of Medicine Diastolic blood 2020-04-18 103 mm[Hg] [facility] Colle ge pressure 14:29:00 of Medicine Heart rate 2020-04-18 87 /min [facility] 14:29:00 of Medicine Body temperature 2020-04-18 36.67 Jessica [facility] J[facility]elyn ege 14:29:00 of Medicine Body height 2020-04-18 157.5 cm [facility] 14:29:00 of Medicine Body weight 2020-04-18 96.798 kg [facility] 14:29:00 of Medicine BMI 2020-04-18 39.03 kg/m2 [facility] 14:29:00 of Medicine Systolic blood 2020-04-18 142 mm[Hg] [facility] e pressure 14:29:00 of Medicine Diastolic blood 2020-04-18 103 mm[Hg] [facility] Colle ge pressure 14:29:00 of Medicine Heart rate 2020-04-18 87 /min [facility] 14:29:00 of Medicine Body temperature 2020-04-18 36.67 Jessica [facility] Jocelyn ege 14:29:00 of Medicine Body height 2020-04-18 157.5 cm [facility] 14:29:00 of Medicine Body weight 2020-04-18 96.798 kg [facility] 14:29:00 of Medicine BMI 2020-04-18 39.03 kg/m2 [facility] 14:29:00 of Medicine Heart rate 2019-12-02 85 /min [facility] 16:08:00 of Medicine Body temperature 2019-12-02 36.78 Jessica [facility] ege 16:08:00 of Medicine Body height 2019-12-02 157.5 cm [facility] 16:08:00 of Medicine Body weight 2019-12-02 103.511 kg [facility] 16:08:00 of Medicine BMI 2019-12-02 41.74 kg/m2 [facility] 16:08:00 of Medicine Systolic blood 2019-12-02 147 mm[Hg] [facility] Colleg e pressure 16:08:00 of Medicine Diastolic blood 2019-12-02 103 mm[Hg] [facility] Colle ge pressure 16:08:00 of Medicine Heart rate 2019-12-02 85 /min [facility] 16:08:00 of Medicine Body temperature 2019-12-02 36.78 Jessica [facility] Jocelyn ege 16:08:00 of Medicine Body height 2019-12-02 157.5 cm [facility] 16:08:00 of Medicine Body weight 2019-12-02 103.511 kg [facility] 16:08:00 of Medicine BMI 2019-12-02 41.74 kg/m2 [facility] 16:08:00 of Medicine Systolic blood 2019-12-02 147 mm[Hg] [facility] Colleg e pressure 16:08:00 of Medicine Diastolic blood 2019-12-02 103 mm[Hg] [facility] Colle ge pressure 16:08:00 of Medicine Body height 2019-07-16 157.5 cm [facility] 20:45:00 of Medicine Body weight 2019-07-16 102.513 kg [facility] 20:45:00 of Medicine BMI 2019-07-16 41.34 kg/m2 [facility] 20:45:00 of Medicine Body height 2019-07-16 157.5 cm [facility] 20:45:00 of Medicine Body weight 2019-07-16 102.513 kg [facility] 20:45:00 of Medicine BMI 2019-07-16 41.34 kg/m2 [facility] 20:45:00 of Medicine Body height 2019-06-16 157.5 cm [facility] 16:27:00 of Medicine Body weight 2019-06-16 102.513 kg [facility] 16:27:00 of Medicine BMI 2019-06-16 41.34 kg/m2 [facility] 16:27:00 of Medicine Body height 2019-06-16 157.5 cm [facility] 16:27:00 of Medicine Body weight 2019-06-16 102.513 kg [facility] 16:27:00 of Medicine BMI 2019-06-16 41.34 kg/m2 [facility] 16:27:00 of Medicine Systolic blood 2019-05-12 161 mm[Hg] Patient stated [facility] Jocelyn ege pressure 18:22:00 that she rushed of Medicine to get her, takes BP medication. Denies chest pain, SOB, dizzy.. Patient stated she feels fine Diastolic blood 2019-05-12 106 mm[Hg] Patient stated [facility] Col lege pressure 18:22:00 that she rushed of Medicine to get her, takes BP medication. Denies chest pain, SOB, dizzy.. Patient stated she feels fine Heart rate 2019-05-12 91 /min [facility] 18:22:00 of Medicine Body temperature 2019-05-12 36.83 Jessica [facility] J[facility] ege 18:22:00 of Medicine Body height 2019-05-12 157.5 cm [facility] 18:22:00 of Medicine Body weight 2019-05-12 101.606 kg [facility] 18:22:00 of Medicine BMI 2019-05-12 40.97 kg/m2 [facility] 18:22:00 of Medicine Systolic blood 2019-05-12 161 mm[Hg] Patient stated [facility] Jocelyn ege pressure 18:22:00 that she rushed of Medicine to get her, takes BP medication. Denies chest pain, SOB, dizzy.. Patient stated she feels fine Diastolic blood 2019-05-12 106 mm[Hg] Patient stated [facility] Col lege pressure 18:22:00 that she rushed of Medicine to get her, takes BP medication. Denies chest pain, SOB, dizzy.. Patient stated she feels fine Heart rate 2019-05-12 91 /min [facility] 18:22:00 of Medicine Body temperature 2019-05-12 36.83 Jessica [facility] J[facility]elyn ege 18:22:00 of Medicine Body height 2019-05-12 157.5 cm [facility] 18:22:00 of Medicine Body weight 2019-05-12 101.606 kg [facility] 18:22:00 of Medicine BMI 2019-05-12 40.97 kg/m2 [facility] 18:22:00 of Medicine Procedures Procedure Date / Time Performed Performing Clinician Deepti e POCT MOLECULAR FLU 2021-11-03 01:09:00 Ignacia Lugo [facility] POCT MOLECULAR STREP 2021-11-03 01:07:00 Ignacia Lugo [facility] VITAMIN B12 2019-12-02 17:22:00 Bravo Perla [facility] FERRITIN 2019-12-02 17:22:00 [facility]C 2019-12-02 17:22:00 Hemanth [facility] VITAMIN B1 2019-12-02 17:22:00 [facility] D 25 HYDROXY 2019-12-02 17:22:00 Bravo Perla [facility] VITAMIN A 2019-12-02 17:22:00 Hemanth [facility] IRON+TIBC+%SAT 2019-12-02 17:22:00 [facility] Plan of Care Planned Activity Planned Date Details Comments Source Future Scheduled IRON, TIBC AND FERRITIN Ordered: [facility] Test PANEL [code = NOCPT] 12/02/2019 of Medi cine Future Scheduled VITAMIN B6 [code = [facility] Test 02676-3] of Medicine Future Scheduled MAMMOGRAM ANNUAL [code = [facility] Test MAMMOGRAM ANNUAL] of Medicin e Future Scheduled TETANUS SHOT (ADULT) [facility] [employer] Test [code = TETANUS SHOT of Medi cine (ADULT)] Future Scheduled HIV SCREENING [code = [employer] [facility] HIV SCREENING] of Medicine Future Scheduled CERVICAL CANCER [facility] C ollege Test SCREENING 3 YEAR FOLLOW of M edicine UP [code = CERVICAL CANCER SCREENING 3 YEAR FOLLOW UP] Future Scheduled FLU VACCINE > 6 MONTHS [employer] Test [code = FLU VACCINE > 6 of M edicine MONTHS] Future Scheduled BMI FOLLOW UP PLAN [code [facility] Test = BMI FOLLOW UP PLAN] of Med icine Future Scheduled MAMMOGRAM ANNUAL [code = [facility] Test MAMMOGRAM ANNUAL] of Medicin e Future Scheduled TETANUS SHOT (ADULT) [employer] [employer] Test [code = TETANUS SHOT of Medi cine (ADULT)] Future Scheduled HIV SCREENING [code = [employer] Test HIV SCREENING] of Medicine Future Scheduled CERVICAL CANCER [facility] C ollege Test SCREENING 3 YEAR FOLLOW of M edicine UP [code = CERVICAL CANCER SCREENING 3 YEAR FOLLOW UP] Future Scheduled FLU VACCINE > 6 MONTHS [employer] Test [code = FLU VACCINE > 6 of M edicine MONTHS] Future Scheduled BMI FOLLOW UP PLAN [code [facility] Test = BMI FOLLOW UP PLAN] of Med icine Future Scheduled CBC W/O DIFF W PLT [code Ordered: [facility] Test = 6690-2] 05/02/2020 of Medicine Future Scheduled IRON, TIBC AND FERRITIN Ordered: [facility] Test PANEL [code = NOCPT] 05/02/2020 of Medi cine Future Scheduled MAMMOGRAM ANNUAL [code = [facility] Test MAMMOGRAM ANNUAL] of Medicin e Future Scheduled TETANUS SHOT (ADULT) [employer] Test [code = TETANUS SHOT of Medi cine (ADULT)] Future Scheduled HIV SCREENING [code = [employer] [facility] HIV SCREENING] of Medicine Future Scheduled CERVICAL CANCER [facility] C ollege Test SCREENING 3 YEAR FOLLOW of M edicine UP [code = CERVICAL CANCER SCREENING 3 YEAR FOLLOW UP] Future Scheduled FLU VACCINE > 6 MONTHS [employer] Test [code = FLU VACCINE > 6 of M edicine MONTHS] Future Scheduled BMI FOLLOW UP PLAN [code [facility] Test = BMI FOLLOW UP PLAN] of Med icine Future Scheduled MAMMOGRAM ANNUAL [code = [facility] Test MAMMOGRAM ANNUAL] of Medicin e Future Scheduled TETANUS SHOT (ADULT) [facility] College Test [code = TETANUS SHOT of Medi cine (ADULT)] Future Scheduled HIV SCREENING [code = [facility] College Test HIV SCREENING] of Medicine Future Scheduled CERVICAL CANCER [facility] Test SCREENING 3 YEAR FOLLOW of M edicine UP [code = CERVICAL CANCER SCREENING 3 YEAR FOLLOW UP] Future Scheduled FLU VACCINE > 6 MONTHS [facility] Test [code = FLU VACCINE > 6 of M edicine MONTHS] Future Scheduled BMI FOLLOW UP PLAN [code [facility] Test = BMI FOLLOW UP PLAN] of Med icine Future Scheduled COMPREHENSIVE METABOLIC Ordered: [facility] Test PANEL [code = 83625-2] 05/12/2019 of Me dicine Future Scheduled CBC W/AUTO DIFF WITH Ordered: [facility] Test PLATELETS [code = 05/12/2019 of Medicin e 31002-6] Future Scheduled IRON [code = 2498-4] Ordered: [facility] Test 05/12/2019 of Medicine Future Scheduled THYROID PROFILE (T3U - Ordered: [facility] Test T4 - T7 - TSH) [code = 05/12/2019 of Me dicine NOCPT] Future Scheduled FERRITIN [code = Ordered: [facility] Test 09419-9] 05/12/2019 of Medicine Future Scheduled FOLATE [code = 2284-8] Ordered: [facility] Test 05/12/2019 of Medicine Future Scheduled HEMOGLOBIN A1C [code = Ordered: [facility] Test 4548-4] 05/12/2019 of Medicine Future Scheduled PROTIME & PTT [code = Ordered: [facility] Test NOCPT] 05/12/2019 of Medicine Future Scheduled URINALYSIS, MACROSCOPIC Ordered: [facility] Test [code = NOCPT] 05/12/2019 of Medicine Future Scheduled VITAMIN A [code = Ordered: [facility] Test 2923-1] 05/12/2019 of Medicine Future Scheduled VITAMIN B1 [code = Ordered: [facility] Test 25116-0] 05/12/2019 of Medicine Future Scheduled VITAMIN B12 [code = Ordered: [facility] Test 2132-9] 05/12/2019 of Medicine Future Scheduled VITAMIN B6 [code = Ordered: [facility] r College Test 73090-4] 05/12/2019 of Medicine Future Scheduled VITAMIN D 25 HYDROXY Ordered: [facility] [facility] [employer] Test [code = 1989-3] 05/12/2019 of Medicine Future Scheduled LIPID PANEL [code = Ordered: [facility] or [place] Test 25496-1] 05/12/2019 of Medicine Future Scheduled MAMMOGRAM ANNUAL [code = [facility] Test MAMMOGRAM ANNUAL] of Medicin e Future Scheduled TETANUS SHOT (ADULT) [employer] Test [code = TETANUS SHOT of Medi cine (ADULT)] Future Scheduled BMI FOLLOW UP PLAN [code [facility] Test = BMI FOLLOW UP PLAN] of Med icine Future Scheduled HIV SCREENING [code = [employer] [facility] HIV SCREENING] of Medicine Future Scheduled CERVICAL CANCER [facility] C ollege Test SCREENING 3 YEAR FOLLOW of M edicine UP [code = CERVICAL CANCER SCREENING 3 YEAR FOLLOW UP] Future Scheduled FLU VACCINE > 6 MONTHS [employer] Test [code = FLU VACCINE > 6 of M edicine MONTHS] Future Scheduled MAMMOGRAM ANNUAL [code = [facility] Test MAMMOGRAM ANNUAL] of Medicin e Future Scheduled TETANUS SHOT (ADULT) [employer] Test [code = TETANUS SHOT of Medi cine (ADULT)] Future Scheduled BMI FOLLOW UP PLAN [code [facility] Test = BMI FOLLOW UP PLAN] of Med icine Future Scheduled HIV SCREENING [code = [employer] [facility] HIV SCREENING] of Medicine Future Scheduled CERVICAL CANCER [facility] C [facility]lege Test SCREENING 3 YEAR FOLLOW of M edicine UP [code = CERVICAL CANCER SCREENING 3 YEAR FOLLOW UP] Future Scheduled FLU VACCINE > 6 MONTHS [employer] Test [code = FLU VACCINE > 6 of M edicine MONTHS] Future Scheduled MAMMOGRAM ANNUAL [code = [facility] Test MAMMOGRAM ANNUAL] of Medicin e Future Scheduled TETANUS SHOT (ADULT) [employer] Test [code = TETANUS SHOT of Medi cine (ADULT)] Future Scheduled BMI FOLLOW UP PLAN [code [facility] College Test = BMI FOLLOW UP PLAN] of Med icine Future Scheduled HIV SCREENING [code = [employer] [facility] HIV SCREENING] of Medicine Future Scheduled CERVICAL CANCER [facility] C ollege Test SCREENING 3 YEAR FOLLOW of M edicine UP [code = CERVICAL CANCER SCREENING 3 YEAR FOLLOW UP] Future Scheduled FLU VACCINE > 6 MONTHS [employer] Test [code = FLU VACCINE > 6 of M edicine MONTHS] Future Scheduled FL UPPER GI W/SMALL 1 Occurrences [employer] Test BOWEL FOLLOW THRU [code starting of M edicine = 21202] 05/16/2020 until 11/16/2021 Future Scheduled FL ESOPHAGRAM COMPLETE 1 Occurrences [facility] Test [code = 25480-5] starting of Medicine 05/12/2019 until 11/12/2020 Future Scheduled ELECTROCARDIOGRAM 1 Occurrences [facility] Test COMPLETE [code = 62223] starting of M edicine 05/12/2019 until 05/12/2020 Future Scheduled XR CHEST PA AND LATERAL 1 Occurrences [facility] Test [code = 72160-6] starting of Medicine 05/12/2019 until 05/11/2020 Future Scheduled ESOPHAGEAL 1 Occurrences [facility] Col lege Test MANOMETRY/MOTILITY [code starting of Medicine = NOCPT] 05/12/2019 until 11/11/2019 Encounters Start End Encounter Admission Attending Care Care Encounter Source Date/Time Date/Time Type Type Clinicians Facility Department ID 2021-07-17 Outpatient [facility] Surgery [id number] [facility] 21:58:59 BRAVO JAMES 2021-11-04 2021-11-04 Letter TIMOTHY Tapia 1.2.840.114 [id number] [employer] 00:00:00 00:00:00 (Out) Qian Rowell GLENN 350.1.13.10 it y of [facility] 4.2.7.2.686 [place] as [id number] [address] 2021-11-02 2021-11-02 Akiko Umaña [facility] 1.2.840.114 [id number] Univers 19:00:00 19:05:25 Care [facility] 350.1.13.10 ity [facility] 4.2.7.2.686 [place] as BRENNA?BLEA [phone] [place] [address] [address] MEDICAL OFFICE BUILDING 2021-11-02 2021-11-02 Outpatient Rafael CALDERA [facility] [id number] Univers 19:00:00 19:05:25 AKIKO astudillo [facility] 2021-11-02 2021-11-02 Outpatient Rafael CALDERA [facility] [id number] Univers 18:45:00 18:45:00 AKIKO astudillo [facility] 2021-10-09 2021-10-09 Laboratory Only, Ang Db Test [facility] 1.2.8 40.114 [id number] [facility] 20:30:00 20:30:33 Only Geovanna [facility] 350.1.13.10 ity of [place] 4.2.7.2.686 [place] as BRENNA?BLEA [phone] De [address] MEDICAL OFFICE BUILDING 2020-05-16 2020-05-16 Office Allyn [facility] 1.2.840.114 [id number] 13:19:09 15:20:25 Visit es, Bravo AMBULATOR 350.1.13.21 G Y 0.2.7.2.686 [id number] [facility] 2020-05-16 2020-05-16 Office Plasencia-Ross [facility] 1.2.840.114 [id number] [facility] 13:19:09 15:20:25 Visit es, Bravo AMBULATOR 350.1.13.21 College G Y 0.2.7.2.686 of [id number] [facility] 800 e 2020-05-02 2020-05-02 Office EMILY Queen 1.2.840.114 [id number] 13:56:12 14:26:12 Visit Vimbai A AMBULATOR 350.1.13.21 Y 0.2.7.2.686 [id number] [facility] 2020-05-02 2020-05-02 Office EMILY Queen 1.2.840.[id number] [place] [address] 13:56:12 14:26:12 Visit Vimbai A AMBULATOR 350.1.13.21 College Y 0.2.7.2.686 of [id number] [facility] 800 e 2020-04-18 2020-04-18 Office Bobheather [facility] 1.2.840.114 [id number] 09:19:54 15:17:15 Visit es, Bravo AMBULATOR 350.1.13.21 G Y 0.2.7.2.686 [id number] [facility] 2020-04-18 2020-04-18 Office Allyn [facility] 1.2.840.114 [id number] [facility] 09:19:54 15:17:15 Visit es, Bravo AMBULATOR 350.1.13.21 College G Y 0.2.7.2.686 of [id number] [facility] 800 e 2020-04-18 2020-04-18 Outpatient ALLYN [facility] [id number] [facility] 00:00:00 00:00:00 BRAVO JAMES 2020-04-18 2020-04-18 Outpatient [facility] [id number] 5-2 [facility] 00:00:00 00:00:00 [id number] 2020-02-03 2020-02-03 Outpatient [facility] [id number] 5-2 [facility] 00:00:00 00:00:00 [id number] 2019-12-02 2019-12-02 Office Allyn EMILY 1.2.840.114 [id number] 10:01:30 12:40:44 Visit Bravo james AMBULATOR 350.1.13.21 G Y 0.2.7.2.686 [id number] [facility] 2019-12-02 2019-12-02 Office Allyn EMILY 1.2.840.114 [id number] [facility] 10:01:30 12:40:44 Visit Bravo james AMBULATOR 350.1.13.21 College G Y 0.2.7.2.686 of [id number] [facility] 800 e 2019-07-16 2019-07-16 Office EMILY Tirado 1.2.840.114 [id number] 13:41:03 15:14:00 Visit [place] AMBULATOR 350.1.13.21 Y 0.2.7.2.686 [id number] [facility] 2019-07-16 2019-07-16 Office EMILY Tirado 1.2.840.[id number] [place] [address] 13:41:03 15:14:00 Visit [place] AMBULATOR 350.1.13.21 College Y 0.2.7.2.686 of [id number] [facility] 800 e 2019-06-16 2019-06-16 Office EMILY Tirado 1.2.840.114 [id number] 10:26:53 13:08:19 Visit [place] AMBULATOR 350.1.13.21 Y 0.2.7.2.686 [id number] [facility] 2019-06-16 2019-06-16 Office EMILY Tirado 1.2.840.114 [id number] [facility] 10:26:53 13:08:19 Visit [place] AMBULATOR 350.1.13.21 College Y 0.2.7.2.686 of [id number] [facility] mo 800 e 2019-05-12 2019-05-12 Office EMILY Fry 1.2.840.114 [id number] 12:57:08 15:12:24 Visit Darian AMBULATOR 350.1.13.21 Y 0.2.7.2.686 [id number] 800 2019-05-12 2019-05-12 Office EMILY Fry 1.2.840.114 [id number] [facility] 12:57:08 15:12:24 Visit Darian AMBULATOR 350.1.13.21 College Y 0.2.7.2.686 of [id number] [facility] 800 e Results Test Description Test Time Test Comments Results Result Comments Source POCT MOLECULAR FLU 2021-11-03 01:20:49 Test Item Value Reference Range Interpretation Comme nts POCT Molecular FluA (test code = 68593-9) Negative Negative POCT Molecular FluB (test code = 32656-3) Negative Negative Lab Interpretation (test code = 95720-5) Normal [facility] MOLECULAR [id number] 01:15:21 Test Item Value Reference Range Interpretation Comments POCT Molecular Strep (test code = Negative Negative 86283-1) Lab Interpretation (test code = Normal 08150-7) [facility]-GLUCOSE [id number] 11:14:00 Test Item Value Reference Range Interpretation Comments POC-GLUCOSE METER 86 mg/dL 70-110 : TESTED A T [facility] 6720 (BEAKER) (test code = THIERRY Hall [facility], 1538) 03335: Gum Maker/Techni ashish ID = [id number] for SABAS CHAVEZ BASIC METABOLIC [id number] 05:47:00 Test Item Value Reference Range Interpretation [...] 697) EGFR (BEAKER) (test 83 mL/min/1.73 ESTIMA AIDE GFR IS code = 1092) sq m NOT ACCURATE CREATININE CLEARANCE IN PREDICTING GLOMERULAR FILTRATION RATE . ESTIMATED GFR I S NOT APPLICABLE FOR DIALYSIS PATIEN TS. Gum Maker ID - PIAYA LPOCT-GLUCOSE [id number] 05:44:00 Test Item Value Reference Range Interpretation Comments POC-GLUCOSE METER 97 mg/dL 70-110 : TESTED A T [facility] 6720 (BEAKER) (test code = [place]Y [place], 1538) 38999: Gum Maker/Techni ashish ID = [id number] for SAND ERS, POLO CBC W/PLT COUNT & AUTO [id number] 05:31:00 Test Item Value Reference Range Interpretation [...] PERCENT (BEAKER) (test code = 2801) POCT-GLUCOSE [id number] 00:07:00 Test Item Value Reference Range Interpretation Comments POC-GLUCOSE METER 150 mg/dL 70-110 H : TESTED A T [facility] 6720 (BEAKER) (test code = [facility], 1538) 67899: Gum Maker/Techni ashish ID = [id number] for POLO CHAVZE POCT-GLUCOSE [id number] 17:50:00 Test Item Value Reference Range Interpretation Comments POC-GLUCOSE METER 161 mg/dL 70-110 H : TESTED A T [facility] 6720 (BEAKER) (test code = [facility], 1538) 06364: Gum Maker/Techni ashish ID = [id number] for Ramirez Tucker TISSUE [id number] 16:24:00Surgical Pathology Report Case: [id number] Authorizing Provider: Bravo Perez Collected: 04/26/2020 10:59 AM MD Sal OrderingLocation: [facility] PERIOPERATIVE Received: 04/26/2020 02:14 PM SERVICES Pathologist: Lea Santillan MD Specimen: Explant, Lap Gastric Band for I and D A. GASTRIC, GASTRIC BAND, REMOVAL: - GASTRIC BAND IDENTIFIED (GROSS ONLY) Signing Pathologist Direct Phone Line: [phone] signed by Lea Santillan MD on 04/26/2020 at 4:24 [id number] obesityOther hyperlipidemia Obstructive sleep apnea Heart disease, [...] The Port-A-Cath is inscribed with "lot number: [id number] part number: [id number] full range: 0-10 cc." A gross photograph is taken. No sections are submitted-gross only.KEVIN Sigala, MARLENE ([facility])N/A [id number] 12:53:00 Test Item Value Reference Range Interpretation Comments SODIUM (BEAKER) (test code = 381) 137 meq/L 136-145 POTASSIUM (BEAKER) (test code = 4.2 meq/L 3.5-5.1 379) CHLORIDE (BEAKER) (test code = 382) 103 meq/L 98-107 CO2 (BEAKER) (test code = 355) 26 meq/L 22-29 Gum Maker ID - GARTH PEREZUN AND CREATININE [id number] 12:53:00 Test Item Value Reference Range Interpretation [...] i n mg/dL/creatinin e in mg/dL) EGFR (KAYLA) (test 73 mL/min/1.73 ESTIMA AIDE GFR IS code = 1092) sq m NOT ACCURATE CREATININE CLEARANCE IN PREDICTING GLOMERULAR FILTRATION RATE . ESTIMATED GFR I S NOT APPLICABLE FOR DIALYSIS PATIEN TS. Gum Maker ID - PIAYA [id number] 12:36:00 Test Item Value Reference Range Interpretation Comments HEMOGLOBIN (KAYLA) (test code = 13.9 GM/DL 11.2-15.7 410) Gum Maker ID - [id number] 23:47:24 Test Item Value Reference Range Interpretation Comments VITAMIN B-1 138 nmol/L 64-201 This test was developed and (test code = its performance 24719-2) characteristics determined by [facility] ([facility]). It has n ot beencleared or approved by the U.S. Food and Drug Admini stration (FDA).The FDA h as determined that such clear ance or approval is notnecessary . This test is used for clinic al purposes and should not chivo garded as investigational or for research. [facility] i s qualified toperform high complexity testing under t he Clinical LaboratoryImpro vement Amendments (CLI A). TESTING PERFORM ED AT [employer]. [address] [place] [address], [address], [address] [address] CLIA NO: [id number] Unless Oth erwise Indicated, All Testing Performed At: Clinical Pathology [facility], [address] [place] [address] Laboratory Di maxine: Jarod Quintana M.D. CLIA Number [id number] Cap Accreditation N o. [id number] [facility] [id number] 01:54:35 Test Item Value Reference Range Interpretation Comments VITAMIN A LEVEL (test 0.40 mg/L 0.3-1.2 code = 2923-1) RETINYL PALMITATE 0.02 mg/L 0-0.1 (test code = 24699-0) INTERPRETATION STNRISK Normal Test developed and (test code = 80097-1) charac teristics determined by [facility]. S ee Compliance Stat ement B: Ravel Law/ EUGENE TESTING PERFORM ED AT [facility], [place] [address] [facility] [place], [place] [address] [place]. [id number] 1 CLIA NO. [id number] Unless Other page Indicated, All Testing Performed At: [facility], [address] [place] [address] Laboratory Dire ctor: Jarod romero M.D. CLIA Num kasey [id number] Cap Accreditation N o. [facility] 25 [id number] 11:56:15 Test Item Value Reference Range Interpretation Comments VITAMIN D 25-HYDROXY SEE BELOW NG/ML L NOT E: (test code = 1988-12) 25-HYDR OXYVITAMIN D ASSAY INCLUDES 25-HYDROXYVITAM IN [...] Indic ated, All Testing Per formed At: [facility], [address] [place] [address] Laboratory Dire ctor: Jarod romero M.D. CLIA Numb er [id number] Cap Accreditation N o. Lab Interpretation Abnormal (test code = 32352-4) [facility]+TIBC+%[id number] 10:20:21 Test Item Value Reference Range Interpretation Comments IRON (test code = See_Comment [Automate d message] 0746-4) The system [employer] generated this result transmitted ref erence range: 37 - 145 UG/DL. The reference r rehana was not used to interpret this result as normal/abnor mal. UIBC (test code = See_Comment [Automate d message] 9444-5) The system [employer] generated this result transmitted ref erence range: 112 - 34 7 UG/DL. The refe rence range was not u sed to interpret this result as normal/abnor mal. TIBC (test code = See_Comment [Automate d message] 82518-5) The system [employer] generated this result transmitted ref erence range: 250 - 45 0 UG/DL. The refe rence range was not u sed to interpret this result as normal/abnor mal. IRON SATURATION % (test 14 % 20-50 L Unless code = 2502-3) Otherwise Ind icated, All Testing Per formed At: [facility], [address] [place] [address] Laboratory Dire ctor: Jarod romero M.D. CLIA Num kasey [id number] Cap Accreditation N o. Lab Interpretation Abnormal (test code = 58339-5) [facility] [id number] 10:20:02 Test Item Value Reference Range Interpretation Comments VITAMIN B-12 (test 533 PG/ML 200-950 Unless Otherwise code = 2132-9) Indicated, Al l Testing Performed At: [facility], [address] [place] [address] Laboratory D irector: Jarod romero M.D. CLIA Number [id number] Cap Accreditation N o. [facility] CenterFERRITIN2020-02-21 10:20:02 Test Item Value Reference Range Interpretation Comments FERRITIN (test code = See_Comment H Unless 03772-6) Otherwise Indic ated, All Testing Per formed At: [facility], [address] [place] [address] Laboratory Dire ctor: Jarod romero M.D. CLIA Num kasey [id number] Cap Accreditation [place] o. 51864-89 [Auto mated message] The sy stem which generated this result transmit aide reference range : 13 - 200 NG/ML. The reference range was not used to int erpret this result as normal/abnormal . Lab Interpretation Abnormal (test code = 97316-2) [facility] Center[facility]MO[facility] [id number] 08:03:34 Test Item Value Reference Range Interpretation Comments HEMOGLOBIN A1C (test 5.5 % 4.2-5.6 Unless Otherwise code = 4548-4) Indicated, Al l Testing Performed At: [facility], [address] [place] [address] Laboratory D irector: Marquez BaileyIA Number [id number] Cap Accreditation [place] o. [id number] [facility] CenterRAD, CHEST, 2 [id number] 15:35:00Reason for Exam:->bariatric surgery status; abdominal pain,LUQ, Gastroesophageal reflux disease,esophagitis presence not specificied, pre-operative clearanceFINAL REPORT History provided: Bariatric surgery, abdominal pain CHEST PA ANDLATERAL COMPARISON STUDY: 01/01/2019 Heart size normal. Dual lead left subclavian ICD. Lungs clear and vascularity normal. Signed: Patric Tobar MDReport Verified Date/Time: 08/26/2019 15:35:48 Reading Location: [facility] Diagnostic Imaging Reading Room [place] [address] 1.310.12 TISSUE [id number] 09:50:00Surgical Pathology Report Case: [id number] Authorizing Provider: Darian Fry MD Collected: 07/23/2019 0722 Ordering Location: [facility] Endoscopy Received: 07/23/2019 1333 Services [...] DYSPLASIA, MALIGNANCY Signing Pathologist Direct Phone Line: [phone] signed by Lea Santillan MD on 07/27/2019 at 9:50 [id number]. Biopsy gastric, description rule out H. Pylori. [...] evaluated Immunohistochemistry technical testing was performed at [facility], Pathology Laboratory where it was [...] to perform high complexity clinical laboratory testing.HEMOGLOBIN [id number] 12:55:00 Test Item Value Reference Range Interpretation Comments HEMOGLOBIN A1C (BEAKER) (test code = 4.8 % 4.3-6.1 368) LIPID [id number] 08:01:00 Test Item Value Reference Range Interpretation [...] 130-159 High 160-189 Very High >=190COMPREHENSIVE METABOLIC [id number] 08:01:00 Test Item Value Reference Range Interpretation [...] 347) EGFR (BEAKER) (test 90 mL/min/1.73 ESTIMA AIDE GFR IS code = 1092) sq m NOT ACCURATE CREATININE CLEARANCE IN PREDICTING GLOMERULAR FILTRATION RATE . ESTIMATED GFR I S NOT APPLICABLE FOR DIALYSIS PATIEN TS. TSH/FREE T4 IF [id number] 06:11:00 Test Item Value Reference Range Interpretation Comments THYROID STIMULATING HORMONE 2.58 uIU/mL 0.35-4.94 (BEAKER) (test code = 772) VITAMIN B12 AND [id number] 06:11:00 Test Item Value Reference Range Interpretation [...] 0-0 (BEAKER) (test code = 413) URINALYSIS [id number] 02:49:00 Test Item Value Reference Range Interpretation Comments RBC UA (BEAKER) (test code = 519) < /HPF WBC UA (BEAKER) (test code = 520) 1 /HPF MUCUS (BEAKER) (test code = 1574) Many SQUAMOUS EPITHELIAL (BEAKER) (test 4 /HPF code = 516) URINALYSIS WITH MICROSCOPIC IF [id number] 02:46:00 Test Item Value Reference Range Interpretation [...] pg/mL 0-100 (test code = 700) TROPONIN [id number] 15:40:00 Test Item Value Reference Range Interpretation [...] acute neurological disease, and persistent tachyarrhythmia.BASIC METABOLIC [id number] 15:39:00 Test Item Value Reference Range Interpretation [...] m DATA TO CALCULA TE ESTIMATED GFR. [id number] 15:33:00 Test Item Value Reference Range Interpretation Comments MAGNESIUM (BEAKER) (test code = 2.0 mg/dL 1.6-2.6 627) RAD, CHEST, 1 VIEW, NON [id number] 15:29:00Reason for exam:->chest painIs the patient ?->UnknownFINAL REPORT TECHNIQUE: Frontal chest radiograph dated 01/01/2019. CLINICAL HISTORY: Chest pain COMPARISON STUDY: None IMPRESSION:Left-sided, dual-chamber defibrillator is in place. No pleural effusion or pneumothorax. Cardiomediastinal silhouette is normal in size. No pulmonaryedema. No fracture. Signed: Bg Zamudioeport Verified Date/Time: 01/01/2019 15:29:08 Reading Location: [facility] Radiology Reading Room [id number] 15:23:00 Test Item Value Reference Range Interpretation [...] for patients with mechanical heart valves. SCREEN, [id number] 15:23:00 Test Item Value Reference Range Interpretation Comments TEST URINE (BEAKER) (test Negative code = 583) CBC W/PLT COUNT & AUTO [id number] 15:15:00 Test Item Value Reference Range Interpretation [...] (BEAKER) (test code = 2801) CT, BRAIN/STROKE [id number] 14:33:00Reason for exam:->NUMBNESSReason for exam:->HEADACHEIs the patient [...] is recommended for further evaluation. Signed: Sara Youssef Verified Date/Time: 01/01/2019 14:33:00 Reading Location: [facility] Radiology Reading Room
[2021-12-03 10:10] LABS: Absolute Lymphocytes (CBC) 1.2 K/uL (0.7-4.9); Hematocrit 39.5 % (36.0-45.0); Lymphocytes % 20.7 % (15.3-44.8); MPV 7.8 fL (7.6-11.3); RBC Red Blood Cell Count 4.73 M/uL (3.86-4.86)
[2021-12-03 10:26] LABS: Albumin 3.9 g/dL (3.4-5.0); Bilirubin Direct 0.1 mg/dL (0-0.2); Bilirubin Total 0.5 mg/dL (0.2-1.0); Potassium 3.5 mmol/L (3.5-5.1); Protein, Total 8.3 g/dL (6.4-8.2)
[2021-12-03 10:33] LABS: Urine Blood Negative (Negative); Urine Glucose Negative (Negative); Urine Protein Negative (Negative)
[2021-12-03 11:06] LABS: Urine Bacteria <20 /HPF (<20); Urine RBC <5 /HPF (NONE SEEN)
--- NOTE | 2021-12-03 11:06 | RAD REPORT ---
EXAM DESCRIPTION: CT - Abdomen Pelvis W Contrast - 12/03/2021 10:45 am CLINICAL HISTORY: ABD PAIN COMPARISON: Abdomen Pelvis W Contrast dated 10/29/2020 TECHNIQUE: Biphasic, helical CT imaging of the abdomen and pelvis was performed following 100 ml non -ionic IV contrast. No oral contrast. All CT scans are performed using dose optimization technique as appropriate and may include automated exposure control or mA/KV adjustment according to patient size. FINDINGS: No suspicious findings in the lung bases. The liver, spleen, and pancreas show no suspicious findings. Cholecystectomy clips are present. Bilia ry tree within normal limits. Symmetric renal function is seen with no hydronephrosis or suspicious renal mass. No pyelonephritis o r acute parenchymal process. No bladder abnormalities. No adrenal abnormalities. Uterus is absent. Ov arthur are absent or atrophic. No dilated bowel loops or bowel wall thickening. Gastric bypass surgical changes are present with no acute finding. Appendix is normal. No free air, free fluid or inflammatory stranding. No hernia, mas s or bulky lymphadenopathy. No suspicious bony findings. IMPRESSION: Contrast enhanced CT abdomen and pelvis showing no acute or emergent finding. Nonacute findings detailed in the body of the report.
--- NOTE | 2021-12-03 11:29 | EDPHYS ---
Physician Documentation [facility] Name: Vanessa Gonzalez Age: 46 yrs Sex: Female : 1975 Arrival Date: 12/03/2021 Time: 09:23 Bed Treatment Private MD: Eliot Roque HPI: 12/03 10:18 This 46 yrs old Female presents to ER via Ambulatory with complaints of Back kb Pain, Abdominal Pain. 10:19 The patient presents with abdominal pain in the left upper quadrant. Onset: The kb symptoms/episode began/occurred 1 week(s) ago. The symptoms radiate to left back. Associated signs and symptoms: none. The symptoms are described as constant. Modifying factors: The symptoms are alleviated by nothing, the symptoms are aggravated by pressure. Severity of pain: At its worst the pain was moderate in the emergency department the pain is unchanged. The patient has not experienced similar symptoms in the past. The patient has not recently seen a physician. 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 N/A - Hysterectomy kd3 Historical: - Allergies: 09:28 Ketorolac; ph 09:28 Morphine; ph 09:28 ANYTHING THAT PROLONGS QT; ph - Home Meds: :28 AIMOVIG IM [Active]; amlodipine 2.5 mg tab 1 tab once daily [Active]; Bystolic 5 mg ph Oral tab 1 tab once daily [Active]; Protonix 40 mg Oral TbEC once daily [Active]; Repatha Syringe 140 mg/mL subcutaneous syrg 1 mL every 2 wks [Active]; Xanax 0.5 mg Oral tab 1 tab daily [Active]; - PMHx: 09:28 Anxiety; Depression; GERD; High Cholesterol; Hypertension; Pacemaker; prolonged QT ph interval; TIA; - PSHx: 09:28 section; Cholecystectomy; Gastric Bypass; hysterectomy; ph - Immunization history:: Client reports receiving the 2nd dose of the Covid vaccine. - Social history:: Smoking status: Patient denies any tobacco usage or history of. ROS: 10:17 Constitutional: Negative for fever, chills, and weight loss. kb 10:17 Abdomen/GI: Positive for abdominal pain, Negative for nausea, vomiting, and diarrhea. 10:17 All other systems are negative. Exam: 10:17 Constitutional: This is a well developed, well nourished patient who is awake, alert, kb and in no acute distress. Head/Face: Normocephalic, atraumatic. ENT: Moist Mucous membranes Cardiovascular: Regular rate and rhythm with a normal S1 and S2. No gallops, murmurs, or rubs. No pulse deficits. Respiratory: Respirations even and unlabored. No increased work of breathing. Talking in full sentences Skin: Warm, dry with normal turgor. Normal color. MS/ Extremity: Pulses equal, no cyanosis. Neurovascular intact. Full, normal range of motion. Neuro: Awake and alert, GCS 15, oriented to person, place, time, and situation. Moves all extremities. Normal gait. Psych: Awake, alert, with orientation to person, place and time. Behavior, mood, and affect are within normal limits. 10:17 Abdomen/GI: Inspection: abdomen appears normal, Bowel sounds: normal, in all quadrants, Palpation: soft, in all quadrants, moderate abdominal tenderness, in the left upper quadrant. Vital Signs: 09:26 BP 160 / 106; Pulse 74; Resp 18; Temp 97.3; Pulse Ox 100% on R/A; Weight 94.8 kg; ph Height 5 ft. 2 in. (157.48 cm); 09:26 Body Mass Index 38.23 (94.80 kg, 157.48 cm) ph MDM: 09:30 Patient medically screened. kb 10:16 Data reviewed: vital signs, nurses notes. Data interpreted: Pulse oximetry: on room air kb is 100 %. Interpretation: normal. 11:13 Counseling: I had a detailed discussion with the patient and/or guardian regarding: the kb historical points, exam findings, and any diagnostic results supporting the discharge/admit diagnosis, lab results, radiology results, the need for outpatient follow up, a family practitioner, to return to the emergency department if symptoms worsen or persist or if there are any questions or concerns that arise at home. 12/03 09:34 Order name: Basic Metabolic Panel; Complete Time: 10:39 kb 12/03 09:34 Order name: CBC with Diff; Complete Time: 10:11 kb 12/03 09:34 Order name: Hepatic Function; Complete Time: 10:39 kb 12/03 09:34 Order name: Lipase; Complete Time: 10:39 kb 12/03 09:34 Order name: Urine Microscopic Only; Complete Time: 11:07 kb 12/03 10:33 Order name: Urine Dipstick-Ancillary; Complete Time: 10:39 EDMS 12/03 09:34 Order name: IV Saline Lock; Complete Time: 09:59 kb 12/03 09:34 Order name: Labs collected and sent; Complete Time: 09:59 kb 12/03 09:34 Order name: CT Abd/Pelvis - IV Contrast Only; Complete Time: 11:07 kb 12/03 09:34 Order name: Urine Dipstick-Ancillary (obtain specimen); Complete Time: 10:40 kb Administered Medications: No medications were administered Disposition Summary: 12/03/21 11:29 Discharge Ordered Location: Home kb Condition: Stable kb Diagnosis - Upper abdominal pain, unspecified kb Followup: kb - With: Private Physician - When: 2 - 3 days - Reason: Recheck today's complaints, Continuance of care, Re-evaluation by your physician Followup: kb - With: Emergency Department - When: As needed - Reason: Worsening of condition Discharge Instructions: - Discharge Summary Sheet kb - Abdominal Pain, Adult, [id number] kb Forms: - Medication Reconciliation Form kb - Thank You Letter kb - Antibiotic Education kb - Prescription Opioid Use kb Signatures: Dispatcher [employer] EDMS Lizzette Parry, FISHING ACCESSORIES MAKER-C LFOR-Nhung Patricia RN RN ph Corrections: (The following items were deleted from the chart) 10:40 09:34 Urine Test ordered. kb iw
--- NOTE | 2021-12-03 11:29 | ER ---
Nurse's Notes [facility] Name: Vanessa Gonzalez Age: 46 yrs Sex: Female : 1975 Arrival Date: 12/03/2021 Time: 09:23 Bed Treatment Private MD: Diagnosis: Upper abdominal pain, unspecified Presentation: 12/03 09:26 Chief complaint: Patient states: Upper L sided abdominal pain > 1 week, also reports ph reflux, low grade fever and sore throat. Denies vomiting or diarrhea. Coronavirus screen: Vaccine status: Patient reports receiving the 2nd dose of the covid vaccine. Ebola Screen: No symptoms or risks identified at this time. Initial Sepsis Screen: Does the patient meet any 2 criteria? No. Patient's initial sepsis screen is negative. Does the patient have a suspected source of infection? No. Patient's initial sepsis screen is negative. Risk Assessment: Do you want to hurt yourself or someone else? Patient reports no desire to harm self or others. Onset of symptoms was December 03, 2021. 09:26 Method Of Arrival: Ambulatory ph 09:26 Acuity: ANDREW 3 ph PNEUMATIC DRUM SANDER: 10:01 LMP N/A - Hysterectomy kd3 Historical: - Allergies: 09:28 Ketorolac; ph 09:28 Morphine; ph 09:28 ANYTHING THAT PROLONGS QT; ph - Home Meds: 09:28 AIMOVIG IM [Active]; amlodipine 2.5 mg tab 1 tab once daily [Active]; Bystolic 5 mg ph Oral tab 1 tab once daily [Active]; Protonix 40 mg Oral TbEC once daily [Active]; Repatha Syringe 140 mg/mL subcutaneous syrg 1 mL every 2 wks [Active]; Xanax 0.5 mg Oral tab 1 tab daily [Active]; - PMHx: 09:28 Anxiety; Depression; GERD; High Cholesterol; Hypertension; Pacemaker; prolonged QT ph interval; TIA; - PSHx: :28 section; Cholecystectomy; Gastric Bypass; hysterectomy; ph - Immunization history:: Client reports receiving the 2nd dose of the Covid vaccine. - Social history:: Smoking status: Patient denies any tobacco usage or history of. Screenin:00 Abuse screen: Denies threats or abuse. Nutritional screening: No deficits noted. kd3 Tuberculosis screening: No symptoms or risk factors identified. Fall Risk Ambulatory Aid- None/Bed Rest/Nurse Assist (0 pts). Gait- Normal/Bed Rest/Wheelchair (0 pts) Mental Status- Oriented to own ability (0 pts). Total Molina Fall Scale indicates No Risk (0-24 pts). Assessment: 10:00 General: Appears in no apparent distress. uncomfortable, Behavior is calm, cooperative, kd3 appropriate for age. Pain: Complains of pain in abdomen Pain radiates to left flank Quality of pain is described as crampy, tender. Neuro: Level of Consciousness is awake, alert, obeys commands, Oriented to person, place, time, situation. Cardiovascular: Capillary refill < 3 seconds Patient's skin is warm and dry. Respiratory: Airway is patent Respiratory effort is even, unlabored, Respiratory pattern is regular, symmetrical. GI: Abdomen is non-distended, Abd is soft and non tender X 4 quads. Reports upper abdominal pain. : Reports pain in left flank(s). EENT: No signs and/or symptoms were reported regarding the EENT system. Derm: Skin is intact, Skin is dry, Skin is normal, Skin temperature is warm. Musculoskeletal: Circulation, motion, and sensation intact. Range of motion: intact in all extremities. 10:50 Reassessment: Patient appears in no apparent distress at this time. Patient and/or jd3 family updated on plan of care and expected duration. Pain level reassessed. Patient is alert, oriented x 3, equal unlabored respirations, skin warm/dry/pink. pt returned from CT. Vital Signs: 09:26 BP 160 / 106; Pulse 74; Resp 18; Temp 97.3; Pulse Ox 100% on R/A; Weight 94.8 kg; ph Height 5 ft. 2 in. (157.48 cm); 09:26 Body Mass Index 38.23 (94.80 kg, 157.48 cm) ph ED Course: 09:23 Patient arrived in ED. ds1 09:28 Triage completed. ph 09:28 Arm band placed on Patient placed in an exam room. ph 09:29 [facility]C [facility] kb 09:29 Eliot Hair MD is Attending Physician. kb 09:33 Beulah Groves RN is Primary Nurse. kd3 09:59 Inserted saline lock: 22 gauge in right antecubital area, using aseptic technique. kd3 Blood collected. 10:00 Patient has correct armband on for positive identification. Bed in low position. Call kd3 light in reach. Side rails up X 1. Pulse ox on. NIBP on. 10:45 CT Abd/Pelvis - IV Contrast Only In Process Unspecified. EDMS 11:38 No provider procedures requiring assistance completed. IV discontinued, intact, kd3 bleeding controlled, No redness/swelling at site. Pressure dressing applied. Administered Medications: No medications were administered Outcome: 11:29 Discharge ordered by . ingrid 11:38 Discharged to home ambulatory. kd3 11:38 Condition: stable 11:38 Discharge instructions given to patient, Instructed on discharge instructions, follow up and referral plans. Demonstrated understanding of instructions, follow-up care. 11:39 Patient left the ED. kd3 Signatures: Dispatcher [employer] EDPR Lizzette Parry, PARTS PROCESSOR-C PARTS PROCESSOR-CkCarolynn Pascual ds1 Nhung Ken, MARIA R RN Jesus Wallace RN RN jd3 Doucette, Kyli, RN RN kd3
[2021-12-03 11:55] VITALS: BP 160/106; TEMP 97.3; O2SAT 100
== END 2021-12-03 11:39 | disposition home or self-care (01) ==
LOC: ER 09:14
DX: R10.12 Left upper quadrant pain (principal); I10 Essential (primary) hypertension; F41.8 Other specified anxiety disorders; Z95.0 Presence of cardiac pacemaker; Z88.5 Allergy status to narcotic agent; Z88.8 Allergy status to other drugs, medicaments and biological substances
CPT/HCPCS: 85025; 80048; 36415; 80076; 83690; 74177; 99284; Q9967; 81003; 81015

== ENCOUNTER 2022-05-27 12:19 | Emergency (ER) | payer BC ==
--- OUTSIDE RECORDS SUMMARY | 2022-05-27 12:24 | XMS REPORT | Continuity of Care Document ---
:1975 Author Organization [facility] t Address [address] Thakkar [address] [place] [id number] Care Team Providers Name Role Phone AMY COOPER NEREIDA Primary Care Physician Unavailable BRAVO PERLA Attending Clinician Unavailrosalinda GIBSON Attending Clinician Unavailable Qian Tapia RN Attending Clinician Unavailable Akiko Viera MD Attending Clinician Ignacia Jo Attending Clinician AKIKO VIERA Attending Clinician Unavailable IGNACIA LUGO Attending Clinician Unavailable Bravo Perla MD Attending Clinician [phone] [place] FNDAVON, Vimbaclary A Attending Clinician DARIAN FRY Attending Clinician Unavailable Madison Tirado RD Attending Clinician Unavailable Darian Fry MD Attending Clinician TIMOTHY ROSARIO Attending Clinician Unavailable BRAVO PERLA Admitting Clinician Unavailrosalinda GIBSON Admitting Clinician Unavailable DARIAN FRY Admitting Clinician Unavailable KETURAH ROLLINS Admitting Clinician Unavailable Payers Payer Name Policy Type Policy Number Effective Date Expiration Date Rose DE LA ROSA [id number] 2018 00:00:00 HMO/POS/OPEN ACCESS Problems Condition Condition Condition Status Onset Resolution Last Treating Co mments Source Name Details Category Date Date Treatment Clinician Date S/P S/P Disease Active [facility] gastric gastric 05-21 [place] bypass bypass 00:00: of 04/26/20 04/26/20 00 Medicin e No known No known Disease Unive rs active active ity of problems problems [facility] Allergies, Adverse Reactions, Alerts Allergy Allergy Status Severity Reaction(s) Onset Inactive Treating Comm ents Source Name Type Date Date Clinician Toradol Propensi Active Severe [facility] ty to 04-18 [place] adverse 00:00: of reaction 00 Medicin s to e drug Ketorola Propensi Active Anaphylaxis U nivers c ty to 04-18 ity of adverse 00:00: [place] reaction 00 Medical s Branch KETOROLA DRUG Active High Anaphylaxis Uni vers C INGREDI 04-18 ity of 00:00: [place] 00 [facility] KETOROLA Allergy Active High Sob 2018[facility] MORPHINE Allergy Active [facility] [facility] Ketorola Propensi Active Anaphylaxis 2018-0 Rash [facility] & ty to 10-28 [place] adverse 00:00: of ine & reaction 00 Medicin [place] s to e drug Morphine Propensi Active 2018- [facility]SOB, [facility] ty to 10-28 vomit, [place] adverse 00:00: low BP of reaction 00 Medicin s to e drug MORPHINE DRUG Active High Hives 2018- Univers INGREDI 10-28 ity of 00:00: [place] 00 [facility] Morphine Drug Active Shortness of 2019-0 SobSOB, U nivers Allergy Breath 10-28 vomit, ity of 00:00: low [place] 00 BPbradyca Medical rdiaSOB, [place] vomit, low BP Social History Social Habit Start Date Stop Date Quantity Comments Source History [facility] ge of Alcohol Std Medicine Drinks History [facility] ge of Alcohol Binge Medicine Exposure to Yes University of SARS-CoV-2 [facility] (event) Branch Alcohol intake 2021-11-02 2021-11-02 Ex-drinker [place] of 00:00:00 00:00:00 (finding) [facility] Tobacco use and 2021-10-12 2021-10-12 Never used Universit y of exposure 00:00:00 00:00:00 [facility] History SDOH 2019-05-12 2019-05-12 1 [facility] Buddy jurado of Alcohol Frequency 00:00:00 00:00:00 Medicin e Sex [birth year] Universit y of 00:00:00 00:00:00 [facility] Smoking Status Start Date Stop Date Source Never smoker [facility] Medications Ordered Filled Start Stop Current Ordering Indication Dosage Frequency Signature Comments Components Source Medication Medication Date Date Medication? Clinician (SIG) Name Name benzonatate Yes [id number] 200mg Take 2 Univers 100 mg 1-21 capsules ity of capsule 00:00: by mouth [place] 00 every 8 Medical (eight) Branch hours as needed for Cough. azelastine Yes [id number] 1{spray Use 1 Univers 137 mcg 1-21 } [place] in ity of (0.1 %) 00:00: each [place] nasal spray 00 nostril 2 Med ical (two) Branch times daily. Use in each nostril as directed fluticasone Yes [id number] 1{spray Use 1 Univers propionate 1-21 } [place] in ity o f 50 00:00: each [place] mcg/actuati 00 nostril Medic al on nasal daily. Branch spray benzonatate Yes [id number] 200mg Take 2 Univers 100 mg 1-21 capsules ity of capsule 00:00: by mouth [place] every 8 Medical (eight) Branch hours as needed for Cough. azelastine Yes [id number] 1{spray Use 1 Univers 137 mcg 1-21 } [place] in ity of (0.1 %) 00:00: each [place] nasal spray 00 nostril 2 Med ical (two) Branch times daily. Use in each nostril as directed fluticasone 2021-0 Yes [id number] 1{spray Use 1 Univers propionate 1-21 } [place] in ity o f 50 00:00: each [place] mcg/actuati 00 nostril Medic al on nasal daily. Branch spray amLODIPine 2020-10 Yes 2.5mg Take 2.5 Un jeremy 5 mg tablet 2-31 mg by ity of 09:38: mouth. [address] nebivoloL 5 2020-10 Yes 5mg Take 5 mg U nivers mg tablet 2-31 by mouth. ity o f 09:38: [address] ALPRAZolam 2020-10 Yes .5mg Take 0.5 Uni vers 0.5 mg 2-31 mg by ity of tablet 09:38: mouth. [address] amLODIPine 2020-10 Yes 2.5mg Take 2.5 Un jeremy 5 mg tablet 2-31 mg by ity of 09:38: mouth. [address] nebivoloL 5 2020-10 Yes 5mg Take 5 mg U nivers mg tablet 2-31 by mouth. ity o f 09:38: [address] ALPRAZolam 2020-10 Yes .5mg Take 0.5 Uni vers 0.5 mg 2-31 mg by ity of tablet 09:38: mouth. [address] REPATHA 2020-10 Yes Univers SURECLICK 1-29 ity of 140 mg/mL 00:00: [place] PnIj [facility] REPATHA 2020-10 Yes Univers SURECLICK 1-29 ity of 140 mg/mL 00:00: [address] pantoprazol 2020-10 Yes Univer s e 40 mg EC 1-23 ity of tablet 00:00: [address] pantoprazol 2020-10 Yes Univer s e 40 mg EC 1-23 ity of tablet 00:00: [address] Evolocumab 0 Yes Inject [facility] with 8-04 into the [place] Infusor 18:28: skin. of (REPATHA 16 Medicin PUSHTRONEX e SYSTEM) 420 MG/3.5ML SOCT Topiramate 2019-0 2020- No 50mg Take 50 mg [facility] ER (QUDEXY 7- 07-07 by mouth Jocelyn ege XR) 25 MG 14:31: 00:00 daily. of CS24 12 :00 Medicin e Evolocumab 2019-0 Yes Inject [facility] [facility] with 7-07 into the [place] Infusor 14:31: skin. of (REPATHA 09 Medicin PUSHTRONEX e SYSTEM) 420 MG/3.5ML SOCT Evolocumab 2019-0 Yes Inject [facility]lo r with 7-07 into the [place] Infusor 14:31: skin. of (REPATHA 09 Medicin [...] 00:00: of tablet 00 Medicin e alprazolam 2019-0 Yes .5mg Take 0.5 [facility] (XANAX) 0.5 2-20 mg by College MG tablet 16:12: mouth of 20 nightly as Medicin needed for e Sleep. Evolocumab 2019-0 Yes Inject Baylo r with 2-20 into the [place] Infusor 16:12: skin. of (REPATHA 20 Medicin PUSHTRONEX e SYSTEM) 420 MG/3.5ML SOCT Topiramate 2020-0 Yes 50mg Take 50 mg [facility] (QUDEXY 2-20 by mouth Colle ge XR) 25 MG 16:12: daily. of CS24 20 Medicin e Evolocumab 2019-0 Yes Inject Baylo r with 7-31 into the [place] Infusor 23:18: skin. of (REPATHA 27 Medicin PUSHTRONEX e SYSTEM) 420 MG/3.5ML SOCT Evolocumab 0 Yes Inject Baylo r with 7-31 into the [place] Infusor 23:18: skin. of (REPATHA 27 Medicin PUSHTRONEX e SYSTEM) 420 MG/3.5ML SOCT Evolocumab Yes Inject [facility]lo r with 7-31 into the [place] Infusor 23:18: skin. of (REPATHA 27 Medicin PUSHTRONEX e SYSTEM) 420 MG/3.5ML SOCT alprazolam Yes .5mg Take 0.5 [facility] (XANAX) 0.5 7-31 mg by College MG tablet 23:11: mouth of 21 nightly as Medicin needed for e Sleep. alprazolam Yes .5mg Take 0.5 [employer] (XANAX) 0.5 7-31 mg by College MG tablet 23:11: mouth of 21 nightly as Medicin needed for e Sleep. alprazolam Yes .5mg Take 0.5 [facility] (XANAX) 0.5 7-31 mg by College MG tablet 23:11: mouth of 21 nightly as Medicin needed for e Sleep. [facility] Yes 5mg Take 5 mg [facility] MG TABS 5-25 by mouth. College 00:00: of 00 Medicin e [facility] 5 Yes TAKE ONE [facility] MG TABS 5-25 (1) College 00:00: TABLET(S) of 00 BY MOUTH Medicin ONCE A e DAY. [facility] Yes 5mg Take 5 mg [facility] MG TABS 5-25 by mouth. College 00:00: of 00 Medicin e [facility] Yes 5mg Take 5 mg [facility] MG TABS 5-25 by mouth. College 00:00: of 00 Medicin e [facility] 5 Yes TAKE ONE [facility] MG TABS 5-25 (1) College 00:00: TABLET(S) of 00 BY MOUTH Medicin ONCE A e DAY. [facility] Yes TAKE ONE [facility] MG TABS 5-25 (1) College 00:00: TABLET(S) of 00 BY MOUTH Medicin ONCE A e DAY. BYSTOLIC 5 2019-0 Yes 5mg Take 5 mg [facility] MG TABS 5-25 by mouth. [place] 00:00: of 00 Medicin e Vital Signs Vital Name Observation Time Observation Value Comments Source HEIGHT 2019-12-17 157.5 cm 00:00:00 WEIGHT 2019-12-17 95.936 kg 00:00:00 Systolic blood 2021-11-03 127 mm[Hg] [place] of pressure 00:59:00 [facility] Diastolic blood 2021-11-03 84 mm[Hg] [place] o f pressure 00:59:00 [facility] Heart rate 2021-11-03 64 /min [facility] 00:59:00 [facility] Body temperature 2021-11-03 36.61 Jessica [facility] 00:59:00 [facility] Respiratory rate 2021-11-03 19 /min [facility] 00:59:00 [facility] Body weight 2021-11-03 97.07 kg [facility] 00:59:00 [facility] BMI 2021-11-03 39.14 kg/m2 [facility] 00:59:00 [facility] Oxygen saturation 2021-11-03 98 /min [facility] Arterial blood 00:59:00 [facility] by Pulse oximetry [place] Systolic blood 2020-05-16 132 mm[Hg] [facility] e pressure 18:27:00 of Medicine Diastolic blood 2020-05-16 96 mm[Hg] [facility] ge pressure 18:27:00 of Medicine Heart rate 2020-05-16 91 /min [facility] 18:27:00 of Medicine Body temperature 2020-05-16 36.94 Jessica [facility] Jocelyn ege 18:27:00 of Medicine Body height 2020-05-16 157.5 cm [facility] 18:27:00 of Medicine Body weight 2020-05-16 89.812 kg [facility] 18:27:00 of Medicine BMI 2020-05-16 36.21 kg/m2 [facility] 18:27:00 of Medicine Systolic blood 2020-05-16 132 mm[Hg] [facility]:27[facility] of Medicine Diastolic blood 2020-05-16 96 mm[Hg] [facility] ge pressure 18:27:00 of Medicine Heart rate 2020-05-16 91 /min [facility] 18:27:00 of Medicine Body temperature 2020-05-16 36.94 Jessica [facility] Jocelyn ege 18:27:00 of Medicine Body height 2020-05-16 157.5 cm [facility] 18:27:00 of Medicine Body weight 2020-05-16 89.812 kg [facility] 18:27:00 of Medicine BMI 2020-05-16 36.21 kg/m2 [facility] 18:27:00 of Medicine Systolic blood 2020-05-02 118 mm[Hg] [employer] pressure 19:38:00 of Medicine Diastolic blood 2020-05-02 81 mm[Hg] [facility] pressure 19:38:00 of Medicine Heart rate 2020-05-02 80 /min [facility] 19:38:00 of Medicine Body temperature 2020-05-02 36.78 Jessica [facility] Jocelyn ege 19:38:00 of Medicine Body height 2020-05-02 157.5 cm [facility] 19:38:00 of Medicine Body weight 2020-05-02 93.35 kg [facility] 19:38:00 of Medicine BMI 2020-05-02 37.64 kg/m2 [facility] 19:38:00 of Medicine Systolic blood 2020-05-02 118 mm[Hg] [facility] [employer] pressure 19:38:00 of Medicine Diastolic blood 2020-05-02 81 mm[Hg] [facility] pressure 19:38:00 of Medicine Heart rate 2020-05-02 80 /min [facility] 19:38:00 of Medicine Body temperature 2020-05-02 36.78 Jessica [facility] Jocelyn ege 19:38:00 of Medicine Body height 2020-05-02 157.5 cm [facility] 19:38:00 of Medicine Body weight 2020-05-02 93.35 kg [facility] 19:38:00 of Medicine BMI 2020-05-02 37.64 kg/m2 [facility] 19:38:00 of Medicine HEIGHT 2019-12-17 157.5 cm 00:00:00 WEIGHT 2019-12-17 95.936 kg 00:00:00 Systolic blood 2020-04-18 142 mm[Hg] [facility] [employer] [facility] pressure 14:29:00 of Medicine Diastolic blood 2020-04-18 103 mm[Hg] [facility] pressure 14:29:00 of Medicine Heart rate 2020-04-18 87 /min [facility] 14:29:00 of Medicine Body temperature 2020-04-18 36.67 Jessica [facility] Jocelyn ege 14:29:00 of Medicine Body height 2020-04-18 157.5 cm [facility] 14:29:00 of Medicine Body weight 2020-04-18 96.798 kg [facility] 14:29:00 of Medicine BMI 2020-04-18 39.03 kg/m2 [facility] 14:29:00 of Medicine Systolic blood 2020-04-18 142 mm[Hg] [facility] [employer] pressure 14:29:00 of Medicine Diastolic blood 2020-04-18 103 mm[Hg] [facility] [employer] pressure 14:29:00 of Medicine Heart rate 2020-04-18 87 /min [facility] 14:29:00 of Medicine Body temperature 2020-04-18 36.67 Jessica [facility] 14:29:00 of Medicine Body height 2020-04-18 157.5 cm [facility] 14:29:00 of Medicine Body weight 2020-04-18 96.798 kg [facility] 14:29:00 of Medicine BMI 2020-04-18 39.03 kg/m2 [facility] 14:29:00 of Medicine Heart rate 2019-12-02 85 /min [facility] 16:08:00 of Medicine Body temperature 2019-12-02 36.78 Jessica [facility] 16:08:00 of Medicine Body height 2019-12-02 157.5 cm [facility] 16:08:00 of Medicine Body weight 2019-12-02 103.511 kg [facility] 16:08:00 of Medicine BMI 2019-12-02 41.74 kg/m2 [facility] 16:08:00 of Medicine Systolic blood 2019-12-02 147 mm[Hg] [facility] [employer] pressure 16:08:00 of Medicine Diastolic blood 2019-12-02 103 mm[Hg] [facility] pressure 16:08:00 of Medicine Heart rate 2019-12-02 85 /min [facility] 16:08:00 of Medicine Body temperature 2019-12-02 36.78 Jessica [facility] 16:08:00 of Medicine Body height 2019-12-02 157.5 cm [facility] 16:08:00 of Medicine Body weight 2019-12-02 103.511 kg [facility] 16:08:00 of Medicine BMI 2019-12-02 41.74 kg/m2 [facility] 16:08:00 of Medicine Systolic blood 2019-12-02 147 mm[Hg] [facility] [employer] pressure 16:08:00 of Medicine Diastolic blood 2019-12-02 103 mm[Hg] [facility] pressure 16:08:00 of Medicine Body height 2019-07-16 157.5 cm [facility] 20:45:00 of Medicine Body weight 2019-07-16 102.513 kg [facility] 20:45:00 of Medicine BMI 2019-07-16 41.34 kg/m2 [facility] 20:45:00 of Medicine Body height 2019-07-16 157.5 cm [facility] 20:45:00 of Medicine Body weight 2019-07-16 102.513 kg [facility] 20:45:00 of Medicine BMI 2019-07-16 41.34 kg/m2 [facility] 20:45:00 of Medicine Body height 2019-06-16 157.5 cm [facility] 16:27:00 of Medicine Body weight 2019-06-16 102.513 kg [facility] 16:27:00 of Medicine BMI 2019-06-16 41.34 kg/m2 [facility] 16:27:00 of Medicine Body height 2019-06-16 157.5 cm [facility] 16:27:00 of Medicine Body weight 2019-06-16 102.513 kg [facility] 16:27:00 of Medicine BMI 2019-06-16 41.34 kg/m2 [facility] 16:27:00 of Medicine Systolic blood 2019-05-12 161 mm[Hg] Patient stated [facility] Jocelyn ege pressure 18:22:00 that she rushed of Medicine to get her, takes BP medication. Denies chest pain, SOB, dizzy.. Patient stated she feels fine Diastolic blood 2019-05-12 106 mm[Hg] Patient stated [facility] pressure 18:22:00 that she rushed of Medicine to get her, takes BP medication. Denies chest pain, SOB, dizzy.. Patient stated she feels fine Heart rate 2019-05-12 91 /min [facility] 18:22:00 of Medicine Body temperature 2019-05-12 36.83 Jessica [facility] 18:22:00 of Medicine Body height 2019-05-12 157.5 cm [facility] 18:22:00 of Medicine Body weight 2019-05-12 101.606 kg [facility] 18:22:00 of Medicine BMI 2019-05-12 40.97 kg/m2 [facility] 18:22:00 of Medicine Systolic blood 2019-05-12 161 mm[Hg] Patient stated [facility] Jocelyn ege pressure 18:22:00 that she rushed of Medicine to get her, takes BP medication. Denies chest pain, SOB, dizzy.. Patient stated she feels fine Diastolic blood 2019-05-12 106 mm[Hg] Patient stated [facility] pressure 18:22:00 that she rushed of Medicine to get her, takes BP medication. Denies chest pain, SOB, dizzy.. Patient stated she feels fine Heart rate 2019-05-12 91 /min [facility] 18:22:00 of Medicine Body temperature 2019-05-12 36.83 Jessica [facility] 18:22:00 of Medicine Body height 2019-05-12 157.5 cm [facility] 18:22:00 of Medicine Body weight 2019-05-12 101.606 kg [facility] 18:22:00 of Medicine BMI 2019-05-12 40.97 kg/m2 [facility] 18:22:00 of Medicine Procedures Procedure Date / Time Performed Performing Clinician Sour e POCT MOLECULAR FLU 2021-11-03 01:09:00 Ignacia Lugo [facility] POCT MOLECULAR STREP 2021-11-03 01:07:00 Ignacia Lugo [facility] VITAMIN B12 2019-12-02 17:22:[address] [facility] FERRITIN 2019-12-02 17:22:00 [facility] HEMOGLOBIN A1C 2019-12-02 17:22:[address] [facility] VITAMIN B1 2019-12-02 17:22:00 [facility] VITAMIN D 25 HYDROXY 2019-12-02 17:22:00 Bravo Perla [facility] VITAMIN A 2019-12-02 17:22:00 [facility] IRON+TIBC+%SAT 2019-12-02 17:22:[address] [facility] Plan of Care Planned Activity Planned Date Details Comments Source Future Scheduled IRON, TIBC AND FERRITIN Ordered: [facility] Test PANEL [code = NOCPT] 12/02/2019 of Medi cine Future Scheduled VITAMIN B6 [code = [facility] Test 27088-9] of Medicine Future Scheduled MAMMOGRAM ANNUAL [code = [facility] Test MAMMOGRAM ANNUAL] of Medicin e Future Scheduled TETANUS SHOT (ADULT) [employer] Test [code = TETANUS SHOT of Medi cine (ADULT)] Future Scheduled HIV SCREENING [code = [employer] Test HIV SCREENING] of Medicine Future Scheduled CERVICAL CANCER [facility] Test SCREENING 3 YEAR FOLLOW of M edicine UP [code = CERVICAL CANCER SCREENING 3 YEAR FOLLOW UP] Future Scheduled FLU VACCINE > 6 MONTHS [facility] Test [code = FLU VACCINE > 6 of M edicine MONTHS] Future Scheduled BMI FOLLOW UP PLAN [code [facility] Test = BMI FOLLOW UP PLAN] of Med icine Future Scheduled MAMMOGRAM ANNUAL [code = [facility] Test MAMMOGRAM ANNUAL] of Medicin e Future Scheduled TETANUS SHOT (ADULT) [employer] Test [code = TETANUS SHOT of Medi cine (ADULT)] Future Scheduled HIV SCREENING [code = [employer] Test HIV SCREENING] of Medicine Future Scheduled CERVICAL CANCER [facility] Test SCREENING 3 YEAR FOLLOW of M edicine UP [code = CERVICAL CANCER SCREENING 3 YEAR FOLLOW UP] Future Scheduled FLU VACCINE > 6 MONTHS [facility] Test [code = FLU VACCINE > 6 of M edicine MONTHS] Future Scheduled BMI FOLLOW UP PLAN [code [facility] Test = BMI FOLLOW UP PLAN] of Med icine Future Scheduled CBC W/O DIFF W PLT [code Ordered: [facility] Test = 6690-2] 05/02/2020 of Medicine Future Scheduled IRON, TIBC AND FERRITIN Ordered: [facility] Test PANEL [code = NOCPT] 05/02/2020 of Medi cine Future Scheduled MAMMOGRAM ANNUAL [code = [facility] Test MAMMOGRAM ANNUAL] of Medicin e Future Scheduled TETANUS SHOT (ADULT) [employer] Test [code = TETANUS SHOT of Medi cine (ADULT)] Future Scheduled HIV SCREENING [code = [employer] Test HIV SCREENING] of Medicine Future Scheduled CERVICAL CANCER [facility] Test SCREENING 3 YEAR FOLLOW of M edicine UP [code = CERVICAL CANCER SCREENING 3 YEAR FOLLOW UP] Future Scheduled FLU VACCINE > 6 MONTH[facility] [code = FLU VACCINE > 6 of M edicine MONTHS] Future Scheduled BMI FOLLOW UP PLAN [code [facility] Test = BMI FOLLOW UP PLAN] of Med icine Future Scheduled MAMMOGRAM ANNUAL [code = [facility] Test MAMMOGRAM ANNUAL] of Medicin e Future Scheduled TETANUS SHOT (ADULT) [facility] Test [code = TETANUS SHOT of Medi cine (ADULT)] Future Scheduled HIV SCREENING [code = [facility] Test HIV SCREENING] of Medicine Future Scheduled CERVICAL CANCER [facility] camryn Test SCREENING 3 YEAR FOLLOW of M edicine UP [code = CERVICAL CANCER SCREENING 3 YEAR FOLLOW UP] Future Scheduled FLU VACCINE > 6 MONTHS [facility] Test [code = FLU VACCINE > 6 of M edicine MONTHS] Future Scheduled BMI FOLLOW UP PLAN [code [facility] Test = BMI FOLLOW UP PLAN] of Med icine Future Scheduled COMPREHENSIVE METABOLIC Ordered: [facility] Test PANEL [code = 57954-4] 05/12/2019 of [place] Future Scheduled CBC W/AUTO DIFF WITH Ordered: [facility] Test PLATELETS [code = 05/12/2019 of Medicin e 23676-4] Future Scheduled IRON [code = 2498-4] Ordered: [facility] Test 05/12/2019 of Medicine Future Scheduled THYROID PROFILE (T3U - Ordered: [facility] Test T4 - T7 - TSH) [code = 05/12/2019 of Me dicine NOCPT] Future Scheduled FERRITIN [code = Ordered: [facility] Test 01769-8] 05/12/2019 of Medicine Future Scheduled FOLATE [code = 2284-8] Ordered: [facility] College Test 05/12/2019 of Medicine Future Scheduled HEMOGLOBIN A1C [code = Ordered: [facility] Test 4548-4] 05/12/2019 of Medicine Future Scheduled PROTIME & PTT [code = Ordered: [facility] Test NOCPT] 05/12/2019 of Medicine Future Scheduled URINALYSIS, MACROSCOPIC Ordered: [facility] Test [code = NOCPT] 05/12/2019 of Medicine Future Scheduled VITAMIN A [code = Ordered: [facility] Test 2923-1] 05/12/2019 of Medicine Future Scheduled VITAMIN B1 [code = Ordered: [facility] Test 70498-7] 05/12/2019 of Medicine Future Scheduled VITAMIN B12 [code = Ordered: [facility] Test 2132-9] 05/12/2019 of Medicine Future Scheduled VITAMIN B6 [code = Ordered: [employer] [facility] [employer] Test 53347-0] 05/12/2019 of Medicine Future Scheduled VITAMIN D 25 HYDROXY Ordered: [employer] Test [code = 1989-3] 05/12/2019 of Medicine Future Scheduled LIPID PANEL [code = Ordered: [facility] Test 38533-5] 05/12/2019 of Medicine Future Scheduled MAMMOGRAM ANNUAL [code = [facility] [employer] Test MAMMOGRAM ANNUAL] of Medicin e Future Scheduled TETANUS SHOT (ADULT) [employer] Test [code = TETANUS SHOT of Medi cine (ADULT)] Future Scheduled BMI FOLLOW UP PLAN [code [facility] [employer] Test = BMI FOLLOW UP PLAN] of Med icine Future Scheduled HIV SCREENING [code = [employer] Test HIV SCREENING] of Medicine Future Scheduled CERVICAL CANCER [facility] Test SCREENING 3 YEAR FOLLOW of M edicine UP [code = CERVICAL CANCER SCREENING 3 YEAR FOLLOW UP] Future Scheduled FLU VACCINE > 6 MONTHS [employer] Test [code = FLU VACCINE > 6 of M edicine MONTHS] Future Scheduled MAMMOGRAM ANNUAL [code = [facility] [employer] Test MAMMOGRAM ANNUAL] of Medicin e Future Scheduled TETANUS SHOT (ADULT) [employer] Test [code = TETANUS SHOT of Medi cine (ADULT)] Future Scheduled BMI FOLLOW UP PLAN [code [facility] Test = BMI FOLLOW UP PLAN] of Med icine Future Scheduled HIV SCREENING [code = [employer] Test HIV SCREENING] of Medicine Future Scheduled CERVICAL CANCER [facility] Test SCREENING 3 YEAR FOLLOW of M edicine UP [code = CERVICAL CANCER SCREENING 3 YEAR FOLLOW UP] Future Scheduled FLU VACCINE > 6 MONTHS [employer] Test [code = FLU VACCINE > 6 of M edicine MONTHS] Future Scheduled MAMMOGRAM ANNUAL [code = [employer] [facility] [employer] Test MAMMOGRAM ANNUAL] of Medicin e Future Scheduled TETANUS SHOT (ADULT) [employer] Test [code = TETANUS SHOT of Medi cine (ADULT)] Future Scheduled BMI FOLLOW UP PLAN [code [employer] [facility] Test = BMI FOLLOW UP PLAN] of Med icine Future Scheduled HIV SCREENING [code = [employer] Test HIV SCREENING] of Medicine Future Scheduled CERVICAL CANCER [facility] [employer] Test SCREENING 3 YEAR FOLLOW of M edicine UP [code = CERVICAL CANCER SCREENING 3 YEAR FOLLOW UP] Future Scheduled FLU VACCINE > 6 MONTHS [employer] Test [code = FLU VACCINE > 6 of M edicine MONTHS] Future Scheduled FL UPPER GI W/SMALL 1 Occurrences [facility] Test BOWEL FOLLOW THRU [code starting of M edicine = 05193] 05/16/2020 until 11/16/2021 Future Scheduled FL ESOPHAGRAM COMPLETE 1 Occurrences [facility] Test [code = 12142-7] starting of Medicine 05/12/2019 until 11/12/2020 Future Scheduled ELECTROCARDIOGRAM 1 Occurrences [facility] Test COMPLETE [code = 75608] starting of M edicine 05/12/2019 until 05/12/2020 Future Scheduled XR CHEST PA AND LATERAL 1 Occurrences [facility] Test [code = 99905-1] starting of Medicine 05/12/2019 until 05/11/2020 Future Scheduled ESOPHAGEAL 1 Occurrences [facility] [employer] Test MANOMETRY/MOTILITY [code starting of Medicine = NOCPT] 05/12/2019 until 11/11/2019 Encounters Start End Encounter Admission Attending Care Care Encounter Source Date/Time Date/Time Type Type Clinicians Facility Department ID 2021-07-17 Outpatient [facility] Surgery [id number] [facility] 21:58:59 BRAVO JAMES 2022-04-23 2022-04-23 Outpatient [facility] 71 [place] 09:51:00 09:51:00 ARTEMIO 07Klaus da [facility] Outre h Program 2021-11-04 2021-11-04 Letter TIMOTHY Tapia 1.2.840.114 [id number] Univers 00:00:00 00:00:00 (Out) Qian GARCIA 350.1.13.10 it y of [facility] 4.2.7.2.686 [place] as [id number] [address] 2021-11-02 2021-11-02 Akiko Umaña [facility] 1.2.840.114 [id number] Univers 19:00:00 19:05:25 [facility] 350.1.13.10 ity [facility] 4.2.7.2.686 [place] as BRENNA?BLEA [id number] [address] MEDICAL OFFICE BUILDING 2021-11-02 2021-11-02 Outpatient R WERNER [facility] [id number] Univers 19:00:00 19:05:25 [facility] 2021-11-02 Outpatient R WERNER, [facility] [id number] Univers 18:45:00 18:45:00 AKIKO [facility] 2021-10-12 2021-10-12 Outpatient R ASHELY, [facility] [id number] Univers 10:00:00 09:48:58 IGNACIA [facility] 2020-05-16 2020-05-16 Office Plasencia-Hayn BCM 1.2.840.114 [id number] [facility] 13:19:09 15:20:25 Visit es, Bravo AMBULATOR 350.1.13.21 College G Y 0.2.7.2.686 of [id number] [facility] 800 e 2020-05-16 2020-05-16 Office Plasencia-Hayn BCM 1.2.840.114 [id number] 13:19:09 15:20:25 Visit es, Bravo AMBULATOR 350.1.13.21 G Y 0.2.7.2.686 [id number] [facility] 2020-05-02 2020-05-02 Office Emilianosi, BCM 1.2.840.[id number] [place] [address] 13:56:12 14:26:12 Visit Vimbai A AMBULATOR 350.1.13.21 College Y 0.2.7.2.686 of [id number] [facility] 800 e 2020-05-02 2020-05-02 Office Hofisi, BCM 1.2.840.114 [id number] 13:56:12 14:26:12 Visit Vimbai A AMBULATOR 350.1.13.21 Y 0.2.7.2.686 [id number] [facility] 2020-04-18 2020-04-18 Office Plasencia-Hayn BCM 1.2.840.114 [id number] [facility] 09:19:54 15:17:15 Visit es, Bravo AMBULATOR 350.1.13.21 College G Y 0.2.7.2.686 of [id number] [facility] 800 e 2020-04-18 2020-04-18 Office Plasencia-Hayn BCM 1.2.840.114 [id number] 09:19:54 15:17:15 Visit Abdias jamesiet AMBULATOR 350.1.13.21 G Y 0.2.7.2.686 [id number] [facility] 2020-04-18 2020-04-18 Outpatient CORNELIA KNAPP [facility] [id number] [facility] 00:00:00 00:00:00 BRAVO JAMES 2020-04-18 2020-04-18 Outpatient SLE SLE [id number] 5-2 [facility] 00:00:00 00:00:00 [id number] 2020-02-03 2020-02-03 Outpatient [facility]H [facility] [id number] 5-2 [facility] 00:00:00 00:00:00 [id number] 2019-12-02 2019-12-02 Office Allyn [facility] 1.2.840.114 [id number] [facility] 10:01:30 12:40:44 Visit Abdias jamesiet AMBULATOR 350.1.13.21 College G Y 0.2.7.2.686 of [id number] [facility] 800 e 2019-12-02 2019-12-02 Office Allyn [facility] 1.2.840.114 [id number] 10:01:30 12:40:44 Visit Abdias jamesiet AMBULATOR 350.1.13.21 G Y 0.2.7.2.686 [id number] [facility] 2019-07-16 2019-07-16 Office EMILY Tirado 1.2.840.[id number] [place] [address] 13:41:03 15:14:00 Visit [place] AMBULATOR 350.1.13.21 College Y 0.2.7.2.686 of [id number] [facility] 800 e 2019-07-16 2019-07-16 Office KARL Tirado 1.2.840.114 [id number] 13:41:03 15:14:00 Visit [place] AMBULATOR 350.1.13.21 Y 0.2.7.2.686 [id number] [facility] 2019-06-16 2019-06-16 Office EMILY Tirado 1.2.840.[id number] [place] [address] 10:26:53 13:08:19 Visit [place] AMBULATOR 350.1.13.21 College Y 0.2.7.2.686 of [id number] [facility] mo 800 e 2019-06-16 2019-06-16 Office EMILY Tirado 1.2.840.114 [id number] 10:26:53 13:08:19 Visit [place] AMBULATOR 350.1.13.21 Y 0.2.7.2.686 [id number] 800 2019-05-12 2019-05-12 Office AvniKARL andersonKenia 1.2.840.114 [id number] [facility] 12:57:08 15:12:24 Visit Darian AMBULATOR 350.1.13.21 College Y 0.2.7.2.686 of [id number] [facility] mo 800 e 2019-05-12 2019-05-12 Office KARL FryKenia 1.2.840.114 [id number] 12:57:08 15:12:24 Visit Darian AMBULATOR 350.1.13.21 Y 0.2.7.2.686 [id number] 800 Results Test Description Test Time Test Comments Results Result Comments Source POCT MOLECULAR FLU 2021-11-03 01:20:49 Test Item Value Reference Range Interpretation Comme nts POCT Molecular FluA (test code = 76070-2) Negative Negative POCT Molecular FluB (test code = 79179-3) Negative Negative Lab Interpretation (test code = 31084-3) Normal [facility] MOLECULAR [id number] 01:15:21 Test Item Value Reference Range Interpretation Comments POCT Molecular Strep (test code = Negative Negative 81357-9) Lab Interpretation (test code = Normal 09600-6) [facility]-GLUCOSE [id number] 11:14:00 Test Item Value Reference Range Interpretation Comments POC-GLUCOSE METER 86 mg/dL 70-110 : TESTED A T [facility] 6720 (BEAKER) (test code = [place], 1538) [address]: Plunger Shovel Operator/Techni ashish ID = [id number] for SABAS CHAVEZ BASIC METABOLIC [id number] 05:47:00 Test Item Value Reference Range Interpretation [...] S NOT APPLICABLE FOR DIALYSIS PATIEN TS. Plunger Shovel Operator ID - PIAYA LPOCT-GLUCOSE [id number] 05:44:00 Test Item Value Reference Range Interpretation Comments POC-GLUCOSE METER 97 mg/dL 70-110 : TESTED A T [facility] 6720 (BEAKER) (test code = [facility], 1538) 19165: Plunger Shovel Operator/Techni ashish ID = [id number] for SAND ERS, POLO CBC W/PLT COUNT & AUTO [id number] 05:31:00 Test Item Value Reference Range Interpretation [...] PERCENT (BEAKER) (test code = 2801) POCT-GLUCOSE [id number] 00:07:00 Test Item Value Reference Range Interpretation Comments POC-GLUCOSE METER 150 mg/dL 70-110 H : TESTED A T [facility] 6720 (BEAKER) (test code = [facility], 1538) 48778: Plunger Shovel Operator/Techni ashish ID = [id number] for SA MIKEL RAMIREZOE POCT-GLUCOSE [id number] 17:50:00 Test Item Value Reference Range Interpretation Comments POC-GLUCOSE METER 161 mg/dL 70-110 H : TESTED A T [facility] 6720 (BEAKER) (test code = [facility], 1538) 05335: Plunger Shovel Operator/Techni ashish ID = [id number] for Sa Ramirez blake TISSUE [id number] 16:24:00Surgical Pathology Report Case: [id number] Authorizing Provider: Erinn-Bravo Li Collected: 04/26/2020 10:59 AM MD Darlene Ordering Location: [facility] PERIOPERATIVE Received: 04/26/2020 02:14 PM SERVICES Pathologist: Lea Santillan MD Specimen: Explant, Lap Gastric Band for I and D A. GASTRIC, GASTRIC BAND, REMOVAL: - GASTRIC BAND IDENTIFIED (GROSS ONLY) Signing Pathologist Direct Phone Line: [phone] signed by Lea Santillan MD on 04/26/2020 at 4:24 [id number] ob esityOther hyperlipidemia Obstructive sleep apnea Heart disease, unspecified GastricA. Received fresh labeled with the patient's name, medical record number and "explant" is an Allergan brand gastric band measuring 5.5 x 5.5 x 2 cm with a 13 cm in length by 0.3 cm in diameter white tube. Also receivedis a circular peters Allergan brand Port-A-Cath measuring 3 cm in diameter and 0.9 cm in height. There is a 16.5 cm in length by 0.3 cm in diameter attached catheter. The Port-A-Cath is inscribed with "lot number: [id number] part number: [id number] full range: 0-10 cc." A gross photograph is taken. No sections are submitted-gross only.KEVIN Sigala, MARLENE ([facility])N/[id number] 12:53:00 Test Item Value Reference Range Interpretation Comments SODIUM (BEAKER) (test code = 381) 137 meq/L 136-145 POTASSIUM (BEAKER) (test code = 4.2 meq/L 3.5-5.1 379) CHLORIDE (BEAKER) (test code = 382) 103 meq/L 98-107 CO2 (BEAKER) (test code = 355) 26 meq/L 22-29 Plunger Shovel Operator ID - [facility] [id number] 12:53:00 Test Item Value Reference Range Interpretation [...] S NOT APPLICABLE FOR DIALYSIS PATIEN TS. Plunger Shovel Operator ID - PIAYA [id number] 12:36:00 Test Item Value Reference Range Interpretation Comments HEMOGLOBIN (KAYLA) (test code = 13.9 GM/DL 11.2-15.7 410) Plunger Shovel Operator ID - [id number] [id number] 23:47:24 Test Item Value Reference Range Interpretation Comments VITAMIN B-1 138 nmol/L 64-201 This test was developed and (test code = its performance 44943-7) characteristics determined by [facility] ([facility]). [...] Clinical LaboratoryImpro vement Amendments (CLI A). TESTING PERFORMED AT [facility] [address], [address], [place] [address] [place], [place] [address] CLIA NO: [id number] Unle ss Otherwise Indicated, All Testing Performed At: C linical Pathology Formerly [facility], [address] [place] [address] Laboratory Dire ctor: Jarod Quintana M.D. CLIA Number [id number] [place]. [id number] [facility] Farm[facility] [id number] 01:54:35 Test Item Value Reference Range Interpretation Comments VITAMIN A LEVEL (test 0.40 mg/L 0.3-1.2 code = 2923-1) RETINYL PALMITATE 0.02 mg/L 0-0.1 (test code = 87241-8) INTERPRETATION STNRISK Normal Test developed and (test code = 84737-8) charac teristics determined by [facility]. S ee Compliance Stat ement B: HIRO Media/ CS TESTING PERFORM ED AT [facility], [address] [place] [address], [place] [address] [place]. [id number] CL [place] NO. [id number] Unl ess Otherwise Indic ated, All Testing Per formed At: [facility]ology Formerly [facility], [address] [place] [address] Laborator y Director: Jarod Quintana M.D. CLIA Number [id number] [place]. [id number] [facility] D 25 [id number] 11:56:15 Test Item Value Reference Range Interpretation Comments VITAMIN D 25-HYDROXY SEE BELOW NG/ML L NOT E: (test code = 1988-12) 25-HYDR OXYVITAMIN D ASSAY INCLUDES 25-HYDROXYVITAM IN D2 AND D3. METHODO LOGY IS CHEMILUMINESCEN T IMMUNOASSAY. $$ $$$ INTERPRETIVE RA NGES $$$$$PEDIATRIC (<17 YEARS) . . . . . . . . . . . NG/ML 20-100ADULT: INSUFFICIENT . . . . . . . . . . . . . . NG/ML <20 SUBOPTIMAL . . . . . . . . . . . . . . . NG/ML 20-29 OPT IMAL . . . . . . . . . . . . . . . . . NG/ML 30- 100 Unless Otherwis e Indicated, All Testing Performed At: C linical Pathology [facility], [address] [place] [address] [facility] Director: Jarod Quintana M.D. CLIA Number [id number] [place]. [id number] Lab Interpretation Abnormal (test code = 19338-0) [facility] FarmIRON+TIBC+[id number] 10:20:21 Test Item Value Reference Range Interpretation Comments IRON (test code = See_Comment [Automate d message] 2498-4) The system Trendr generated this result transmitted ref erence range: 37 - 145 UG/DL. The reference r rehana was not used to interpret this result as normal/abnor mal. UIBC (test code = See_Comment [Automate d message] 2501-5) The system [employer] generated this result transmitted ref erence range: 112 - 34 7 UG/DL. The refe rence range was not u sed to interpret this result as normal/abnor mal. TIBC (test code = See_Comment [Automate d message] 81766-2) The system Trend[employer] generated this result transmitted ref erence range: 250 - 45 0 UG/DL. The refe rence range was not u sed to interpret this result as normal/abnor mal. IRON SATURATION % (test 14 % 20-50 L Unl ess Otherwise code = 2502-3) Indicated, Al l Testing Performed At: [facility], [address] [place] [address] Laborator y Director: Jarod Quintana M.D. CLIA Number [id number] [place]. [id number] Lab Interpretation Abnormal (test code = 42892-4) [facility] Farm[facility] [id number] 10:20:02 Test Item Value Reference Range Interpretation Comments VITAMIN B-12 (test 533 PG/ML 200-950 Unless O therwise code = 2132-9) Indicated, Al l Testing Performed At: [facility], [address] [place] [address] Laborato ry Director: Jarod Quintana M.D. CLIA Number [id number] [place]. [address]-29 [facility] FarmFERRITIN2020-02-21 10:20:02 Test Item Value Reference Range Interpretation Comments FERRITIN (test code = See_Comment H Unles s Otherwise 24382-3) Indicated, All Testing Perform ed At: [facility], [address] [facility], [place] [address] Laborator y Director: Jarod Quintana M.D. CLIA Number [id number] [place]. 62651-31 [Autom ated message] The sy stem which generated this result transmit aide reference range : 13 - 200 NG/ML. The reference range was not used to int erpret this result as normal/abnormal . Lab Interpretation (test Abnormal code = 55242-2) [facility] FarmHEMOGLOBIN [id number] 08:03:34 Test Item Value Reference Range Interpretation Comments HEMOGLOBIN A1C (test 5.5 % 4.2-5.6 Unless Otherwise code = 4548-4) Indicated, Al l Testing Performed At: C [facility]inical Pathology [facility], [address] [place] [address] Laborator y Director: Jarod Quintana M.D. IA Number [id number] [place]. [id number] [facility] FarmRAD, CHEST, 2 [id number] 15:35:00Reason for Exam:->bariatric surgery status; abdominal pain,LUQ, Gastroesophageal reflux disease,esophagitis presence not specificied, pre-operative clearanceFINAL REPORT History provided: Bariatric surgery, abdominal pain CHEST PA AND LATERAL COMPARISON STUDY: 01/01/2019 Heart size normal. Dual lead left subclavian ICD. Lungs clear and vascularity normal. Signed: Patric Tobar MDReport Verified Date/Time: 08/26/2019 15:35:48 Reading Location: [facility] Diagnostic Imaging Reading Room - [facility] 1.310.12 TISSUE [id number] 09:50:00Surgical Pathology Report Case: [id number] Authorizing Provider: Darian Fry MD Collected: 07/23/2019 0722 Ordering Location: [facility] Endoscopy Received: 07/23/2019 1333 Services Pathologist: Lea Santillan MD Specimens: A) - Biopsy, Gastric, r/o H. Pylori B) - Biopsy, Esophagus, at 36cm r/o Nicholson's Esophagus A. STOMACH, RANDOM BIOPSIES: - CHRONIC INACTIVE GASTRITIS - NEGATIVE FORHELICOBACTER PYLORI ORGANISMS BY WARTHIN STARRY STAIN - NEGATIVE FOR INTESTINAL METAPLASIA, DYSPLASIA, MALIGNANCYB. ESOPHAGUS, 36 CM, BIOPSY: - JUNCTIONAL MUCOSA WITH REFLUX ESOPHAGITIS - NEGATIVE FOR INTESTINAL METAPLASIA, DYSPLASIA, MALIGNANCY Signing Pathologist Direct Phone Line: [phone] onically signed by Lea Santillan MD on 07/27/2019 at 9:50 [id number]. Biopsy gastric, description rule out H. Pylori. Biopsy esophagus, description at 36, rule out Nicholson's esophagus Specimen A. Received fixative in a container labeled with the patient's demographic information and surgical accession number are two fragments 0.4 x 0.2 x 0.1 cm in aggregate submitted in block A1.SpecimenB. Received fixative in a container labeled with the patient's demographic information and surgical accession number is one fragment 0.3 x 0.1 x 0.1 submitted in block B1. HL/ew The interpretation of this case included the use of immunohistochemistry or special stains.Control Slides Examined: In-houseknown positive controls were evaluated along with the test tissue. These control slides run alongside of the patients sample show appropriate staining. Internal positive and negative controls when available are evaluated Immunohistochemistry technical testing was performed at [facility], Pathology Laboratory where it was developed and [...] to perform high complexity clinical laboratory testing.HEMOGLOBIN [id number] 12:55:00 Test Item Value Reference Range Interpretation Comments HEMOGLOBIN A1C (BEAKER) (test code = 4.8 % 4.3-6.1 368) LIPID [id number] 08:01:00 Test Item Value Reference Range Interpretation Comments TRIGLYCERIDES (BEAKER) (test code = 95 mg/dL 540) CHOLESTEROL (BEAKER) (test code = 133 mg/dL 631) HDL CHOLESTEROL (BEAKER) (test code 46 mg/dL = 976) LDL CHOLESTEROL CALCULATED (BEAKER) 68 mg/dL (test code = 633) Triglyceride Reference Range: Low Risk <150 Borderline 150-199 High Risk 200- 499 Very High Risk >=500Cholesterol Reference Range: Low Risk <200 Borderline 200-239 High Risk >240HDL Cholesterol Reference Range: Low Risk >=60 High Risk <40LDL Cholesterol Reference Range: Optimal <100 Near Optimal 100-129 Borderline 130-159 High 160-189 Very High >=190COMPREHENSIVE METABOLIC [id number] 08:01:00 Test Item Value Reference Range Interpretation [...] FOR DIALYSIS PATIEN TS. TSH/FREE T4 IF [id number] 06:11:00 Test Item Value Reference Range Interpretation Comments THYROID STIMULATING HORMONE 2.58 uIU/mL 0.35-4.94 (BEAKER) (test code = 772) VITAMIN B12 AND [id number] 06:11:00 Test Item Value Reference Range Interpretation [...] 0-0 (BEAKER) (test code = 413) URINALYSIS [id number] 02:49:00 Test Item Value Reference Range Interpretation Comments RBC UA (BEAKER) (test code = 519) < /HPF WBC UA (BEAKER) (test code = 520) 1 /HPF MUCUS (BEAKER) (test code = 1574) Many SQUAMOUS EPITHELIAL (BEAKER) (test 4 /HPF code = 516) URINALYSIS WITH MICROSCOPIC IF [id number] 02:46:00 Test Item Value Reference Range Interpretation [...] pg/mL 0-100 (test code = 700) TROPONIN [id number] 15:40:00 Test Item Value Reference Range Interpretation [...] acute neurological disease, and persistent tachyarrhythmia.BASIC METABOLIC [id number] 15:39:00 Test Item Value Reference Range Interpretation [...] m DATA TO CALCULA TE ESTIMATED GFR. [id number] 15:33:00 Test Item Value Reference Range Interpretation Comments MAGNESIUM (BEAKER) (test code = 2.0 mg/dL 1.6-2.6 627) RAD, CHEST, 1 VIEW, NON [id number] 15:29:00Reason for exam:->chest painIs the patient ?->UnknownFINAL REPORT TECHNIQUE: Frontal chest radiograph dated 01/01/2019. CLINICAL HISTORY: Chest pain COMPARISON STUDY: None IMPRESSION:Left-sided, dual-chamber defibrillator is in place.No pleural effusion or pneumothorax. Cardiomediastinal silhouette is normal in size. No pulmonary edema. No fracture. Signed: Bg Zamudioeport Verified Date/Time: 01/01/2019 15:29:08 ReadingLocation: [facility] Radiology Reading Room Electronically signed by: BG ZAMUDIO MD on 01/01 03:29 PMPT/[id number] 15:23:00 Test Item Value Reference Range Interpretation Comments PROTIME (BEAKER) (test code = 13.5 seconds 11.7-14.7 759) INR (BEAKER) (test code = 370) 1.0 <=5.9 PARTIAL THROMBOPLASTIN TIME 31.0 seconds 22.5-36.0 (BEAKER) (test code = 760) RECOMMENDED COUMADIN/WARFARIN INR THERAPY RANGESSTANDARD DOSE: 2.0 - 3.0 Includes: PROPHYLAXIS for venous thrombosis, systemic embolization; TREATMENT for venous thrombosis and/or pulmonary embolus.HIGH RISK: Target INR is 2.5-3.5 for patients with mechanical heart valves. SCREEN, [id number] 15:23:00 Test Item Value Reference Range Interpretation Comments TEST URINE (BEAKER) (test Negative code = 583) CBC W/PLT COUNT & AUTO [id number] 15:15:00 Test Item Value Reference Range Interpretation [...] (BEAKER) (test code = 2801) CT, BRAIN/STROKE [id number] 14:33:00Reason for exam:->NUMBNESSReason for exam:->HEADACHEIs the patient [...] recommended for further evaluation. Signed: Sara Youssef MDReport Verified Date/Time: 01/01/2019 14:33:00 Reading Location: [facility] Radiology Reading Room
[2022-05-27 13:10] LABS: Urine Blood Trace-intact (Negative); Urine Glucose Negative (Negative); Urine Protein Negative (Negative); Urine Specific Gravity >=1.030 (1.005-1.030); Urine pH 5.5 (5.0-7.0)
[2022-05-27 13:32] LABS: Absolute Lymphocytes (CBC) 1.8 K/uL (0.7-4.9); Hematocrit 38.9 % (36.0-45.0); Lymphocytes % 27.2 % (15.3-44.8); MCV 81.6 fL (80-100); MPV 8.1 fL (7.6-11.3); RBC Red Blood Cell Count 4.76 M/uL (3.86-4.86)
[2022-05-27 13:41] LABS: Barbiturates NEGATIVE (NEGATIVE); Benzodiazepines POSITIVE (NEGATIVE); Cocaine NEGATIVE (NEGATIVE); METHAMPHETAM NEGATIVE (NEGATIVE); Methadone NEGATIVE (NEGATIVE); Opiates NEGATIVE (NEGATIVE); Phencyclidine NEGATIVE (NEGATIVE); THC Cannibis NEGATIVE (NEGATIVE)
--- NOTE | 2022-05-27 14:29 | RAD REPORT ---
EXAM DESCRIPTION: George Single View05/27/2022 1:29 pm CLINICAL HISTORY: Chest pain COMPARISON: 2020 FINDINGS: The lungs appear clear of acute infiltrate. The heart is normal size. Pacemaker leads in place IMPRESSION: No acute abnormalities displayed
[2022-05-27] MEDS ORDERED: FENTANYL CITR 100 MCG/2 ML ONE (15:02)
[2022-05-27] MEDS ORDERED: ACETAMINOPHEN 500 MG TAB ONE (15:08)
[2022-05-27 18:08] LABS: Protime INR 1.09
[2022-05-27 18:23] LABS: ALT/SGPT 58 U/L (12-78); AST/SGOT 39 U/L (15-37); Alkaline Phosphatase 170 U/L (45-117); BUN Blood Urea Nitrogen 15 mg/dL (7-18); Bicarbonate 29 mmol/L (21-32); Bilirubin Total 0.5 mg/dL (0.2-1.0); Glomerular Filtration Rate 111 ml/min (=/>90); Glucose Level 101 mg/dL (74-106); Potassium 4.2 mmol/L (3.5-5.1); Sodium Level 138 mmol/L (136-145)
[2022-05-27 18:24] LABS: Albumin 3.6 g/dL (3.4-5.0); Magnesium 2.2 mg/dL (1.8-2.4); NT PRO-BNP 60 pg/mL (<125); Protein, Total 7.6 g/dL (6.4-8.2); Troponin High Sensitivity 7.6 pg/mL (<58.9)
[2022-05-27 18:40] LABS: Bilirubin Direct < 0.1 mg/dL (0-0.2)
--- NOTE | 2022-05-27 19:53 | RAD REPORT ---
EXAM DESCRIPTION: US - Abdomen Exam Limited - 05/27/2022 7:42 pm CLINICAL HISTORY: Abdominal pain. COMPARISON: 2018 FINDINGS: Cholecystectomy Mild prominence of the common bile duct unchanged probably is physiologic Liver has a normal echotexture. Hepatopetal flow IMPRESSION: Unremarkable ultrasound
--- NOTE | 2022-05-27 20:51 | ER ---
Nurse's Notes [facility] Name: Vanessa Gonzalez Age: 46 yrs Sex: Female : 1975 Arrival Date: 05/27/2022 Time: 12:21 Bed 25 Private MD: Vy Parker Diagnosis: Chest pain, unspecified Presentation: 05/27 12:28 Chief complaint: Patient states: L sided chest pain that started yesterday, also ph reports dizziness and mild SOB, hx of pacemaker. Coronavirus screen: Vaccine status: Patient reports receiving the 2nd dose of the covid vaccine. Ebola Screen: No symptoms or risks identified at this time. Initial Sepsis Screen: Does the patient meet any 2 criteria? No. Patient's initial sepsis screen is negative. Does the patient have a suspected source of infection? No. Patient's initial sepsis screen is negative. Risk Assessment: Do you want to hurt yourself or someone else? Patient reports no desire to harm self or others. Onset of symptoms was May 27, 2022. 12:28 Method Of Arrival: Ambulatory ph 12:28 Acuity: ANDREW 2 ph Historical: - Allergies: 12:30 ANYTHING THAT PROLONGS QT; ph 12:30 Ketorolac; ph 12:30 Morphine; ph - Home Meds: 12:30 AIMOVIG IM [Active]; amlodipine 2.5 mg tab 1 tab once daily [Active]; Bystolic 5 mg ph Oral tab 1 tab once daily [Active]; Protonix 40 mg Oral TbEC once daily [Active]; Repatha Syringe 140 mg/mL subcutaneous syrg 1 mL every 2 wks [Active]; Xanax 0.5 mg Oral tab 1 tab daily [Active]; - PMHx: 12:30 Anxiety; Depression; GERD; High Cholesterol; Hypertension; Pacemaker; prolonged QT ph interval; TIA; - PSHx: 12:30 section; Cholecystectomy; Gastric Bypass; hysterectomy; ph - Immunization history:: Adult Immunizations up to date. - Social history:: Smoking status: Patient denies any tobacco usage or history of. Screenin:45 Abuse screen: Denies threats or abuse. Denies injuries from another. Nutritional ld1 screening: No deficits noted. Tuberculosis screening: No symptoms or risk factors identified. Fall Risk None identified. Assessment: 13:45 General: Appears in no apparent distress. comfortable, Behavior is calm, cooperative, ld1 appropriate for age. Pain: Complains of pain in chest Pain does not radiate. Pain currently is 6 out of 10 on a pain scale. Quality of pain is described as throbbing, Pain began 1 day ago. Is intermittent. Neuro: Level of Consciousness is awake, alert, obeys commands, Oriented to person, place, time, situation. Cardiovascular: Capillary refill < 3 seconds Patient's skin is warm and dry. Rhythm is sinus rhythm. Respiratory: Airway is patent Respiratory effort is even, unlabored. GI: Abdomen is round non-distended. : No signs and/or symptoms were reported regarding the genitourinary system. EENT: No signs and/or symptoms were reported regarding the EENT system. Derm: No signs and/or symptoms reported regarding the dermatologic system. Musculoskeletal: No signs and/or symptoms reported regarding the musculoskeletal system. 18:26 Reassessment: Patient appears in no apparent distress at this time. Patient is alert, ld1 oriented x 3, equal unlabored respirations, skin warm/dry/pink. Vital Signs: 12:28 BP 166 / 106; Pulse 65; Resp 18; Temp 97.6; Pulse Ox 100% on R/A; Weight 97.52 kg; ph Height 5 ft. 6 in. (167.64 cm); 13:45 BP 138 / 85; Pulse 56; Resp 18; Pulse Ox 100% ; ld1 15:02 BP 123 / 73; Pulse 60; Resp 18; Pulse Ox 100% on R/A; ld1 15:55 BP 117 / 61; Pulse 60; Resp 18; Pulse Ox 100% on R/A; ld1 17:11 BP 106 / 67; Pulse 60; Resp 18; Pulse Ox 100% on R/A; ld1 18:26 BP 114 / 72; Pulse 60; Resp 18; Pulse Ox 100% on R/A; ld1 20:09 BP 120 / 72; Pulse 65; Resp 18; Pulse Ox 100% on R/A; ld1 12:28 Body Mass Index 34.70 (97.52 kg, 167.64 cm) ph ED Course: 12:21 Patient arrived in ED. mr 12:21 Vy Parker MD is Private Physician. mr 12:30 Eliot Day [facility]. cp 12:30 Elian Hooper DO is Attending Physician. cp 12:30 Triage completed. ph 12:31 Arm band placed on Patient placed in an exam room. ph 12:37 Lyla Curiel, RN is Primary Nurse. ld1 13:03 Inserted saline lock: 20 gauge in right antecubital area, using aseptic technique. ld1 Blood collected. 13:30 XRAY Chest (1 view) In Process Unspecified. EDMS 13:45 Patient has correct armband on for positive identification. Placed in gown. Bed in low ld1 position. Call light in reach. Side rails up X2. ekg monitor on. Pulse ox on. NIBP on. Door closed. Noise minimized. Warm blanket given. 13:45 No provider procedures requiring assistance completed. Patient maintains SpO2 ld1 saturation greater than 95% on room air. 19:44 US Abdomen Limited In Process Unspecified. EDMS 20:09 Troponin HS Sent. ld1 20:50 Hill Self MD is Referral Physician. cp 21:13 Patient did not have IV access during this emergency room visit. ld1 Administered Medications: 14:57 Not Given (Patient Refused): fentaNYL (PF) 25 mcg IVP once ld1 15:55 Drug: Tylenol 1000 mg Route: PO; ld1 15:55 Follow up: Response: No adverse reaction ld1 21:06 Drug: Ibuprofen 800 mg Route: PO; ld1 Medication: 13:45 VIS not applicable for this client. ld1 Outcome: 20:51 Discharge ordered by MD. cp 21:13 Discharged to home ambulatory. ld1 21:13 Condition: stable 21:13 Discharge instructions given to patient, Instructed on discharge instructions, follow up and referral plans. medication usage, Demonstrated understanding of instructions, follow-up care, medications, Prescriptions given X 1. 21:13 Patient left the ED. ld1 Signatures: Dispatcher [employer] EDNM Palmer Elisabet english Nhung Ken RN RN ph Eliot Day, MARLENE PA cp Lyla Curiel, MARIA R RN ld1
--- NOTE | 2022-05-27 20:51 | EDPHYS ---
Physician Documentation [facility] Name: Vanessa Gonzalez Age: 46 yrs Sex: Female : 1975 Arrival Date: 05/27/2022 Time: 12:21 Bed 25 Private MD: Vy Parker ED Physician Elian Hooper HPI: 05/27 12:30 This 46 yrs old Female presents to ER via Ambulatory with complaints of Chest cp Pain. 12:30 Onset: The symptoms/episode began/occurred yesterday. cp 12:30 The patient or guardian reports chest pain that is located primarily in the anterior cp chest wall, left. 12:30 The pain radiates to left back. Associated signs and symptoms: Pertinent positives: cp shortness of breath, Pertinent negatives: abdominal pain, cough, diaphoresis, headache, lower extremity pain, lower extremity swelling, palpitations, syncope, vomiting. The chest pain is described as sharp. Duration: The patient or guardian reports a single episode, that is still ongoing, and unchanged. Modifying factors: the symptoms are aggravated by movement. Severity of pain: in the emergency department the pain is unchanged despite home interventions. Historical: - Allergies: 12:30 ANYTHING THAT PROLONGS QT; ph 12:30 Ketorolac; ph 12:30 Morphine; ph - Home Meds: 12:30 AIMOVIG IM [Active]; amlodipine 2.5 mg tab 1 tab once daily [Active]; Bystolic 5 mg ph Oral tab 1 tab once daily [Active]; Protonix 40 mg Oral TbEC once daily [Active]; Repatha Syringe 140 mg/mL subcutaneous syrg 1 mL every 2 wks [Active]; Xanax 0.5 mg Oral tab 1 tab daily [Active]; - PMHx: 12:30 Anxiety; Depression; GERD; High Cholesterol; Hypertension; Pacemaker; prolonged QT ph interval; TIA; - PSHx: 12:30 section; Cholecystectomy; Gastric Bypass; hysterectomy; ph - Immunization history:: Adult Immunizations up to date. - Social history:: Smoking status: Patient denies any tobacco usage or history of. ROS: 12:33 Constitutional: Negative for body aches, chills, fever, poor PO intake. cp 12:33 Cardiovascular: Positive for chest pain, Negative for edema, palpitations. cp 12:33 Eyes: Negative for injury, pain, redness, and discharge. cp 12:33 ENT: Negative for drainage from ear(s), ear pain, sore throat, difficulty swallowing, difficulty handling secretions. 12:33 Respiratory: Positive for shortness of breath, Negative for cough, wheezing. 12:33 Abdomen/GI: Negative for abdominal pain, nausea, vomiting, and diarrhea. 12:33 Back: Positive for radiated pain. 12:33 : Negative for urinary symptoms. 12:33 Skin: Negative for cellulitis, rash. 12:33 Neuro: Positive for weakness, Negative for altered mental status, dizziness, headache, numbness, syncope. 12:33 All other systems are negative. Exam: 12:35 Constitutional: The patient appears in no acute distress, alert, awake, cp non-diaphoretic, non-toxic, well developed, well nourished. 12:35 Head/Face: Normocephalic, atraumatic. cp 12:35 Eyes: Periorbital structures: appear normal, Conjunctiva: normal, no exudate, no injection, Sclera: no appreciated abnormality, Lids and lashes: appear normal, bilaterally. 12:35 ENT: External ear(s): are unremarkable, Nose: is normal, Mouth: Lips: moist, Oral mucosa: pink and intact, moist, Posterior pharynx: Airway: no evidence of obstruction, patent. 12:35 Neck: ROM/movement: is normal, is supple, without pain, no range of motions limitations. 12:35 Chest/axilla: Inspection: normal, Palpation: crepitus, is not appreciated, tenderness, that is mild, of the anterior aspect of left upper chest. 12:35 Cardiovascular: Rate: normal, Rhythm: regular, Heart sounds: murmur, not appreciated, Edema: is not appreciated, JVD: is not appreciated. 12:35 Respiratory: the patient does not display signs of respiratory distress, Respirations: normal, no use of accessory muscles, no retractions, labored breathing, is not present, Breath sounds: are clear throughout, no decreased breath sounds, no stridor, no wheezing. 12:35 Abdomen/GI: Inspection: abdomen appears normal, Palpation: abdomen is soft and non-tender, in all quadrants. 12:35 Back: CVA tenderness, is absent, vertebral tenderness, is not appreciated. 12:35 Skin: cellulitis, is not appreciated, no rash present. 12:35 Neuro: Orientation: to person, place \T\ time. Mentation: is normal, Motor: moves all fours, strength is normal, Sensation: is normal. 12:52 ECG was reviewed by the Attending Physician. cp Vital Signs: 12:28 BP 166 / 106; Pulse 65; Resp 18; Temp 97.6; Pulse Ox 100% on R/A; Weight 97.52 kg; ph Height 5 ft. 6 in. (167.64 cm); 13:45 BP 138 / 85; Pulse 56; Resp 18; Pulse Ox 100% ; ld1 15:02 BP 123 / 73; Pulse 60; Resp 18; Pulse Ox 100% on R/A; ld1 15:55 BP 117 / 61; Pulse 60; Resp 18; Pulse Ox 100% on R/A; ld1 17:11 BP 106 / 67; Pulse 60; Resp 18; Pulse Ox 100% on R/A; ld1 18:26 BP 114 / 72; Pulse 60; Resp 18; Pulse Ox 100% on R/A; ld1 20:09 BP 120 / 72; Pulse 65; Resp 18; Pulse Ox 100% on R/A; ld1 12:28 Body Mass Index 34.70 (97.52 kg, 167.64 cm) ph MDM: 12:35 Patient medically screened. cp 13:00 Differential diagnosis: abnormal EKG, acute myocardial infarction, costochondritis, cp pancreatitis, pericarditis, pleurisy, pneumonia, pneumothorax, pulmonary embolus, stable angina, unstable angina. 20:50 Data reviewed: vital signs, nurses notes, lab test result(s), EKG, radiologic studies, cp plain films. 20:50 Test interpretation: by ED physician or midlevel provider: ECG, plain radiologic cp studies. Counseling: I had a detailed discussion with the patient and/or guardian regarding: the historical points, exam findings, and any diagnostic results supporting the discharge/admit diagnosis, lab results, radiology results, to return to the emergency department if symptoms worsen or persist or if there are any questions or concerns that arise at home. Special discussion: Based on the patient's history, exam, and Dx evaluation, there is no indication for emergent intervention or inpatient Tx. It is understood by the patient/guardian that if the Sx's persist or worsen they need to return immediately for re-evaluation. 08/ 12:31 Order name: Basic Metabolic Panel; Complete Time: 18:46 cp 08/15 12:31 Order name: CBC with Diff; Complete Time: 13:43 cp 08/15 15:55 Interpretation: Reviewed. cp 08/15 12:31 Order name: LFT's; Complete Time: 18:46 cp 08/15 18:47 Interpretation: Normal except: AST 39; ALK 170; GLOB 4.0; A/G 0.9. cp / 12:31 Order name: Magnesium; Complete Time: 18:46 cp 08/15 12:31 Order name: NT PRO-BNP; Complete Time: 18:46 cp /15 12:31 Order name: PT-INR; Complete Time: 18:46 cp /15 12:31 Order name: Troponin HS; Complete Time: 18:46 cp /15 12:31 Order name: XRAY Chest (1 view); Complete Time: 15:55 cp / 15:55 Interpretation: Report review. cp / 12:31 Order name: UDS; Complete Time: 13:43 cp 08/15 13:43 Interpretation: Normal except: BZO POSITIVE. cp / 13:10 Order name: Urine Dipstick-Ancillary; Complete Time: 13:43 EDMS 08/ 13:43 Interpretation: Normal except: UBLD Trace-intact. cp / 18:48 Order name: US Abdomen Limited; Complete Time: 19:58 cp 08/15 19:33 Order name: Troponin HS; Complete Time: 20:44 cp 08/15 20:44 Interpretation: Reviewed. cp / 12:31 Order name: EKG; Complete Time: 12:35 cp /15 12:31 Order name: Cardiac monitoring; Complete Time: 13:03 cp /15 12:31 Order name: EKG - Nurse/Tech; Complete Time: 13:03 cp /15 12:31 Order name: IV Saline Lock; Complete Time: 13:03 cp /15 12:31 Order name: Labs collected and sent; Complete Time: 13:03 cp /15 12:31 Order name: O2 Per Protocol; Complete Time: 13:03 cp / 12:31 Order name: O2 Sat Monitoring; Complete Time: 13:03 cp /15 12:31 Order name: Urine Dipstick-Ancillary (obtain specimen); Complete Time: 13:11 cp 05/27 12:31 Order name: Urine Test (obtain specimen); Complete Time: 13:11 cp 05/27 13:32 Order name: Labs - recollect needed: recollect green and blue top; Complete Time: 14:51 bd EC:52 Rate is 62 beats/min. Rhythm is regular. AK interval is normal. QRS interval is normal. cp QT interval is prolonged at 492 msec. T waves are Inverted in lead aVR. Interpreted by me. Reviewed by me. Administered Medications: 14:57 Not Given (Patient Refused): fentaNYL (PF) 25 mcg IVP once ld1 15:55 Drug: Tylenol 1000 mg Route: PO; ld1 15:55 Follow up: Response: No adverse reaction ld1 21:06 Drug: Ibuprofen 800 mg Route: PO; ld1 Disposition: 22:12 Co-signature as Attending Physician, Elian Hooper DO I agree with the assessment and ms3 plan of care. Disposition Summary: 05/27/22 20:51 Discharge Ordered Location: Home cp Problem: new cp Symptoms: have improved cp Condition: Stable cp Diagnosis - Chest pain, unspecified cp Followup: cp - With: Hill Self MD - When: 2 - 3 days - Reason: Recheck today's complaints Discharge Instructions: - Discharge Summary Sheet cp - Nonspecific Chest Pain, Adult cp - Aspirin and Your Heart cp Forms: - Medication Reconciliation Form cp - Thank You Letter cp - Antibiotic Education cp - Prescription Opioid Use cp Prescriptions: - Ibuprofen 800 mg Oral Tablet - take 1 tablet by ORAL route every 8 hours As needed take with food; 30 tablet; cp Refills: 0, Product Selection Permitted Signatures: Dispatcher [employer] EDMaya Vyas Patricia RN RN ph Eliot Day PA PA cp Elian Hooper DO DO ms3 Lyla Curiel RN RN ld1 Corrections: (The following items were deleted from the chart) 08 20:24 20:00 Onset: The symptoms/episode began/occurred yesterday, cp cp
[2022-05-27] MEDS ORDERED: IBUPROFEN 400 MG TAB ONE (21:07)
[2022-05-27 23:09] VITALS: O2SAT 100
[2022-05-27 23:42] VITALS: BP 144/84; TEMP 98.9
--- NOTE | 2022-05-28 08:14 | EKG ---
Test Date: 2022-05-27 Test Time: 12:47:48 [place] Molder: NANDA MEASUREMENT RESULTS: Intervals: Rate: 62 MI: 150 QRSD: 84 QT: 492 QTc: 499 [place]: P: 29 MI: 150 QRS: 25 T: 38 INTERPRETIVE STATEMENTS: Electronic atrial pacemaker Prolonged QT Abnormal ECG Compared to ECG 09/09/2021 20:25:51 Sinus rhythm no longer present Electronically Signed On 05-28-22 08:11:16 CDT by Hill Self
== END 2022-05-27 21:13 | disposition home or self-care (01) ==
LOC: ER 12:19
DX: R07.89 Other chest pain (principal); R53.1 Weakness; I10 Essential (primary) hypertension; E78.00 Pure hypercholesterolemia, unspecified; F32.A Depression, unspecified; Z95.0 Presence of cardiac pacemaker; Z86.73 Personal history of transient ischemic attack (TIA), and cerebral infarction without residual deficits; Z88.5 Allergy status to narcotic agent; Z88.8 Allergy status to other drugs, medicaments and biological substances
CPT/HCPCS: 93005; 85025; 80048; 36415; 83735; 85610; 80076; 81003; 84484 ×2; 83880; 80307; 71045; 76705; 99285; J3010

== ENCOUNTER 2022-12-26 14:53 | Emergency (ER) | payer BC ==
--- OUTSIDE RECORDS SUMMARY | 2022-12-26 14:59 | XMS REPORT | Continuity of Care Document ---
:1975 Author Organization [facility] t Address [address] [place] [address] Care Team Providers Name Role Phone AMY COOPER Primary Care Physician Unavailable BRAVO PERLA Attending Clinician UnavailCiarra Mary Attending Clinician Unavailable PAIGE Attending Clinician Unavailable Regina RN, Qian Rowell Attending Clinician Unavailable Akiko Viera MD Attending Clinician Ignacia Jo Attending Clinician AKIKO VIERA Attending Clinician Unavailable IGNACIA LUGO Attending Clinician Unavailable Bravo Perla MD Attending Clinician [phone] Kandis Pate Attending Clinician DARIAN FRY Attending Clinician Unavailable Madison Tirado RD Attending Clinician Unavailable Darian Fry MD Attending Clinician TIMOTHY ROSARIO Attending Clinician Unavailable BRAVO PERLA Admitting Clinician UnavailCiarra Mary Admitting Clinician Unavailable PAIGE Admitting Clinician Unavailable DARIAN FRY Admitting Clinician Unavailable KETURAH ROLLINS Admitting Clinician Unavailable Payers Payer Name Policy Type Policy Number Effective Date Expiration Date Rose DE LA ROSA [id number] 2018 00:00:00 HMO/POS/OPEN ACCESS Problems Condition Condition Condition Status Onset Resolution Last Treating Co mments Source Name Details Category Date Date Treatment Clinician Date S/P S/P Disease Active [facility] gastric gastric 8 [place] bypass bypass 00:00: of 04/26/20 04/26/20 Medicin e GERD GERD Disease Active [facility] ([facility]astroeso (gastroeso 7-15 Sh[facility] kes phageal phageal 00:00: Medical reflux reflux 00 Center disease) disease) Dysphagia Dysphagia Disease Active [facility] 00 [place] Morbid Morbid Disease Active 2018-[address] [facility] obesity obesity 0-11 [facility] 00:[facility]: Medical 00 [place] TIA TIA Disease Active [facility] (transient (transient 3-22 [facility]ne k[facility] ischemic ischemic 00:00: Medica l attack) attack) 00 [place] 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 [facility]-16 [facility] 00:00: Hospita 00 l No known No known Disease Unive rs active active ity of problems problems [facility] Allergies, Adverse Reactions, Alerts Allergy Allergy Status Severity Reaction(s) Onset Inactive Treating Comm ents Source Name Type Date Date Clinician Toradol Propensi Active Severe [facility] ty to 04-18 [place] adverse 00:00: of reaction 00 Medicin s to e drug Ketorola Propensi Active Anaphylaxis 2019- U nivers c ty to 04-18 ity of adverse 00:00: [place] reaction 00 Medical s Branch KETOROLA DRUG Active High Anaphylaxis Uni vers C INGREDI 04-18 ity of 00:00: [place] 00 Medical Branch KETOROLA Allergy Active High Sob [facility] 00:[facility]: Medical 00 [place] MORPHINE Allergy Active [facility] Medical 00 Center Morphine Drug Active Hives, bradycard [facility] Allergy Shortness Of 3-22 ia Virgen es Breath, 00:00: Medical Other (See 00 Center Comments) [place] Drug Active Hives, bradycard [facility] Allergy Shortness Of 3-22 ia Virgen es Breath, 00:00: Medical Other (See 00 Center Comments) [place] Propensi Active Anaphylaxis Rash [facility] & ty to 10-28 [facility] [place] adverse 00:00: of ine & reaction 00 Medicin Lido s to e drug MORPHINE DRUG Active High Hives Univers INGREDI 10-28 ity of 00:00: [place] 00 Medical Branch Morphine Drug Active Shortness of SobSOB, U nivers Allergy Breath 10-28 vomit, ity of 00:00: low [place] 00 BPbradyca Medical rdiaSOB, Branch vomit, low BP Morphine Propensi Active SOB, Method i ty to 10-28 vomit, st adverse 00:00: low BP Hospita reaction 00 l s to drug [place] Propensi Active Anaphylaxis M ethodi c ty to 10-28 st adverse 00:00: Hospita reaction 00 l s to drug Social History Social Habit Start Date Stop Date Quantity Comments Source History SDOH [facility] Alcohol Comment Medical C enter History SDOH [facility] Alcohol Std Medical Cente r Drinks History SDOH [facility] Alcohol Binge Medical Lisa ter Exposure to Yes [facility] SARS-CoV-2 [place] Medical (event) Branch Alcohol intake 2020-04-26 2020-04-[address] Virgen es 00:00:00 00:00:00 non-drinker of Medical Ce nter alcohol (finding) Tobacco use and 2019-07-21 2019-07-[address] [facility] [address] Shyanne kes exposure 00:00:00 00:00:00 Medical Center History SDOH 2019-07-21 2019-07-[address] [facility] Alcohol Frequency 00:00:00 00:00:00 Medical Center Sex Ass[birth year] At [birth year] [facility] 00:00:00 00:00:00 Smoking Status Start Date Stop Date Source Tobacco smoking consumption Meth [facility] unknown Never smoker [facility] Medical Branch Medications Ordered Filled Start Stop Current Ordering Indication Dosage Frequency Signature Comments Components Source Medication Medication Date Date Medication? Clinician (SIG) Name Name benzonatate Yes [id number] 200mg Take 2 Univers 100 mg 1-21 capsules ity of capsule 00:00: by mouth [place] 00 every 8 Medical (eight) Branch hours as needed for Cough. azelastine Yes [id number] 1{spray Use 1 Univers 137 mcg 1-21 } [place] in ity of (0.1 %) 00:00: each [place] nasal spray 00 nostril 2 Med ical (two) Branch times daily. Use in each nostril as directed fluticasone Yes [id number] 1{spray Use 1 Univers propionate 1-21 } [place] in ity o f 50 00:00: each [place] mcg/actuati 00 nostril Medic al on nasal daily. Branch spray benzonatate Yes [id number] 200mg Take 2 Univers 100 mg 1-21 capsules ity of capsule 00:00: by mouth [place] 00 every 8 Medical (eight) Branch hours as needed for Cough. azelastine Yes [id number] 1{spray Use 1 Univers 137 mcg 1-21 } [place] in ity of (0.1 %) 00:00: each [place] nasal spray 00 nostril 2 Med ical (two) Branch times daily. Use in each nostril as directed fluticasone 0 Yes [id number] 1{spray Use 1 Univers propionate 1-21 } [place] in ity o f 50 00:00: each [place] mcg/actuati 00 nostril Medic al on nasal daily. Branch spray amLODIPine 2020-10 Yes 2.5mg Take 2.5 Un jeremy 5 mg tablet 2-31 mg by ity of 09:38: mouth. [address] nebivoloL 5 2020-10 Yes 5mg Take 5 mg U nivers mg tablet 2-31 by mouth. ity o f 09:38: [address] ALPRAZolam 2020-10 Yes .5mg Take 0.5 Uni vers 0.5 mg 2-31 mg by ity of tablet 09:38: mouth. [address] amLODIPine 2020-10 Yes 2.5mg Take 2.5 Un jeremy 5 mg tablet 2-31 mg by ity of 09:38: mouth. [address] nebivoloL 5 2020-10 Yes 5mg Take 5 mg U nivers mg tablet 2-31 by mouth. ity o f 09:38: [address] ALPRAZolam 2020-10 Yes .5mg Take 0.5 Uni vers 0.5 mg 2-31 mg by ity of tablet 09:38: mouth. [address] REPATHA 2020-10 Yes Univers SURECLICK 1-29 ity of 140 mg/mL 00:00: [place] PnIj [facility] Branch REPATHA 2020-10 Yes Univers SURECLICK 1-29 ity of 140 mg/mL 00:00: [place] PnIj [facility] Branch pantoprazol 2020-10 Yes Univer s e 40 mg EC 1-23 ity of tablet 00:00: [address] pantoprazol 2020-10 Yes Univer s e 40 mg EC -23 ity of tablet 00:00: [address] Evolocumab 2020-0 Yes Inject [facility] with 8-04 into the [place] Infusor 18:28: skin. of (REPATHA 16 Medicin PUSHTRONEX e SYSTEM) 420 MG/3.5ML SOCT evolocumab 2019-0 Yes 140mg Q14D Inject [address] (REPATHA 7-16 mg [facility] SYRINGE) 14:02: subcutaneo Med ical 140 mg/mL 23 usly every Cent er Syrg 14 (fourteen) days . nebivolol 2020-0 Yes 5mg QD Take [address] (BYSTOLIC) 7-16 by mouth [facility] 5 MG tablet 14:02: daily. Medi rah 23 [place] ALPRAZolam 2019-0 Yes .5mg QD Take 0.[address] (XANAX XR) 7-16 mg by [facility] 0.5 MG 24 14:02: mouth Medical hr tablet 23 every Center morning. topiramate 2020-0 Yes 50mg QD Take [address] (TOPAMAX) 7-16 by mouth [facility] 50 MG 14:02: nightly . Medical tablet 23 Center ergocalcife 2020-0 Yes [id number] Q7D Take [facility] rol 7-16 50,000 [facility] (VITAMIN 14:02: Units by Medic al D2) 1,250 23 mouth once Cent er mcg (50,000 a week. unit) capsule pantoprazol 2020-0 Yes 40mg QD Take [address] e 7-16 tablet (40 [facility] (PROTONIX) 00:00: mg total) Me dical 40 MG 00 by mouth Center tablet daily. Topiramate 2020-0 2020- No 50mg Take 50 mg [facility] ER (QUDEXY - 07-07 by mouth Jocelyn ege XR) 25 MG 14:31: 00:00 daily. of CS24 12 :00 Medicin e Evolocumab 2020-0 Yes Inject Baylo r with 7-07 into the [place] Infusor 14:31: skin. of (REPATHA 09 Medicin PUSHTRONEX e SYSTEM) 420 MG/3.5ML SOCT Evolocumab 2020-0 Yes Inject [facility] with 7- into the [place] Infusor 14:31: skin. of (REPATHA 09 Medicin PUSHTRONEX e SYSTEM) 420 MG/3.5ML SOCT alprazolam 2020-0 2020- No .5mg Take 0.5 [facility] (XANAX) 0.5 04-18 07- mg by Colleg e MG tablet 14:31: [...] e alprazolam 2020-0 Yes .5mg Take 0.5 [facility] (XANAX) 0.5 2-20 mg by College MG tablet 16:12: mouth of 20 nightly as Medicin needed for e Sleep. Evolocumab Yes Inject [facility] with 2-20 into the [place] Infusor 16:12: skin. of (REPATHA 20 Medicin PUSHTRONEX e SYSTEM) 420 MG/3.5ML SOCT Topiramate Yes 50mg Take 50 mg [facility] (QUDEXY 2-20 by mouth Colle ge XR) 25 MG 16:12: daily. of CS24 20 Medicin e Evolocumab Yes Inject [facility] with 7-31 into the [place] Infusor 23:18: skin. of (REPATHA 27 Medicin PUSHTRONEX e SYSTEM) 420 MG/3.5ML SOCT Evolocumab Yes Inject [facility] with 7-31 into the [place] Infusor 23:18: skin. of (REPATHA 27 Medicin PUSHTRONEX e SYSTEM) 420 MG/3.5ML SOCT Evolocumab Yes Inject [facility] with 7-31 into the [place] [facility] 23:18: skin. of (REPATHA 27 Medicin PUSHTRONEX e SYSTEM) 420 MG/3.5ML SOCT alprazolam Yes .5mg Take 0.5 [facility] (XANAX) 0.5 7-31 mg by College MG tablet 23:11: mouth of 21 nightly as Medicin needed for e Sleep. alprazolam Yes .5mg Take 0.5 [facility] (XANAX) 0.5 7-31 mg by College MG tablet 23:11: mouth of 21 nightly as Medicin needed for e Sleep. alprazolam Yes .5mg Take 0.5 [facility] (XANAX) 0.5 7-31 mg by College MG tablet 23:11: mouth of 21 nightly as Medicin needed for e Sleep. BYSTOLIC 5 Yes 5mg Take 5 mg [facility] MG TABS 5-25 by mouth. College 00:00: of 00 Medicin e BYSTOLIC 5 Yes TAKE ONE [facility] MG TABS 5-25 (1) College 00:00: TABLET(S) of 00 BY MOUTH Medicin ONCE A e DAY. [facility] 5 Yes 5mg Take 5 mg [facility] MG TABS 5-25 by mouth. College 00:00: of Medicin e [facility] 5 Yes 5mg Take 5 mg [facility] MG TABS 5-25 by mouth. College 00:00: of Medicin e [facility] 5 Yes TAKE ONE [facility] MG TABS 5-25 (1) College 00:00: TABLET(S) of 00 BY MOUTH Medicin ONCE A e DAY. [facility] 5 Yes TAKE ONE [facility] MG TABS 5-25 (1) College 00:00: TABLET(S) of 00 BY MOUTH Medicin ONCE A e DAY. [facility] 5 Yes 5mg Take 5 mg [facility] MG TABS 5-25 by mouth. College 00:00: of Medicin e coenzyme Yes 100mg QD Take 100 Meth sabrina Q10 1-[address] (COQ-10) 09:52: mouth Hospita 100 mg 05 daily. l capsule amLODIPine Yes 2.5mg QD Take 2.5 Me thodi (NORVASC) 5 1-[address] mg tablet 09:52: mouth Hospita 05 daily. l evolocumab Yes 140mg Q14D Inject 140 [facility] (REPATHA 1-[address] SURECLICK) 09:52: the skin Hos jose 140 mg/mL 05 every 14 l pen (fourteen) injector days. injection ALPRAZolam Yes .5mg QD Take 0.5 [facility] (XANAX) 0.5 1-[address] MG tablet 09:52: mouth Hospita 05 nightly as l needed for anxiety. Vital Signs Vital Name Observation Time Observation Value Comments Source HEIGHT 2019-12-17 157.5 cm 00:00:00 WEIGHT 2019-12-17 95.936 kg 00:00:00 Systolic blood 2021-11-03 127 mm[Hg] University of pressure 00:59:00 [facility] Diastolic blood 2021-11-03 84 mm[Hg] University o f pressure 00:59:00 [facility] Heart rate 2021-11-03 64 /min [facility] 00:59:00 [facility] Body temperature 2021-11-03 36.61 Jessica [facility] 00:59:00 [facility] Respiratory rate 2021-11-03 19 /min [facility] 00:59:00 [facility] Body weight 2021-11-03 97.07 kg [facility] 00:59:00 [facility] BMI 2021-11-03 39.14 kg/m2 [facility] 00:59:00 [facility] Oxygen saturation 2021-11-03 98 /min [facility] in Arterial blood 00:59:00 [facility] by Pulse oximetry Branch Systolic blood 2020-05-16 132 mm[Hg] [facility] Colleg e pressure 18:27:00 of Medicine Diastolic blood 2020-05-16 96 mm[Hg] [facility] Colle ge pressure 18:27:00 of Medicine Heart rate 2020-05-16 91 /min [facility] 18:27:00 of Medicine Body temperature 2020-05-16 36.94 Jessica [facility] Jocelyn ege 18:27:00 of Medicine Body height 2020-05-16 157.5 cm [facility] 18:27:00 of Medicine Body weight 2020-05-16 89.812 kg [facility] 18:27:00 of Medicine BMI 2020-05-16 36.21 kg/m2 [facility] 18:27:00 of Medicine Systolic blood 2020-05-16 132 mm[Hg] [facility] Colleg [facility] pressure 18:27:00 of Medicine Diastolic blood 2020-05-16 96 mm[Hg] [facility] [employer] pressure 18:27:00 of Medicine Heart rate 2020-05-16 91 /min [facility] 18:27:00 of Medicine Body temperature 2020-05-16 36.94 Jessica [facility] Jocelyn ege 18:27:00 of Medicine Body height 2020-05-16 157.5 cm [facility] 18:27:00 of Medicine Body weight 2020-05-16 89.812 kg [facility] 18:27:00 of Medicine BMI 2020-05-16 36.21 kg/m2 [facility] 18:27:00 of Medicine Systolic blood 2020-05-02 118 mm[Hg] [facility] [employer] pressure 19:38:00 of Medicine Diastolic blood 2020-05-02 81 mm[Hg] [facility] Colle [facility] pressure 19:38:00 of Medicine Heart rate 2020-05-02 80 /min [facility] 19:38:00 of Medicine Body temperature 2020-05-02 36.78 Jessica [facility] Jocelyn ege 19:38:00 of Medicine Body height 2020-05-02 157.5 cm [facility] 19:38:00 of Medicine Body weight 2020-05-02 93.35 kg [facility] 19:38:00 of Medicine BMI 2020-05-02 37.64 kg/m2 [facility] 19:38:00 of Medicine Systolic blood 2020-05-02 118 mm[Hg] [facility] [employer] pressure 19:38:00 of Medicine Diastolic blood 2020-05-02 81 mm[Hg] [facility] [employer] [facility] 19:38:00 of Medicine Heart rate 2020-05-02 80 /min [facility] 19:38:00 of Medicine Body temperature 2020-05-02 36.78 Jessica [facility] Jocelyn ege 19:38:00 of Medicine Body height 2020-05-02 157.5 cm [facility] 19:38:00 of Medicine Body weight 2020-05-02 93.35 kg [facility] 19:38:00 of Medicine BMI 2020-05-02 37.64 kg/m2 [facility] 19:38:00 of Medicine HEIGHT 2019-12-17 157.5 cm 00:00:00 WEIGHT 2019-12-17 95.936 kg 00:00:00 Systolic blood 2020-04-18 142 mm[Hg] [facility] pressure 14:29:00 of Medicine Diastolic blood 2020-04-18 103 mm[Hg] [facility] pressure 14:29:00 of Medicine Heart rate 2020-04-18 87 /min [facility] 14:29:00 of Medicine Body temperature 2020-04-18 36.67 Jessica [facility] Jocelyn ege 14:29:00 of Medicine Body height 2020-04-18 157.5 cm [facility] 14:29:00 of Medicine Body weight 2020-04-18 96.798 kg [facility] 14:29:00 of Medicine BMI 2020-04-18 39.03 kg/m2 [facility] 14:29:00 of Medicine Systolic blood 2020-04-18 142 mm[Hg] [facility] [employer] pressure 14:29:00 of Medicine Diastolic blood 2020-04-18 103 mm[Hg] [facility] Colle ge pressure 14:29:00 of Medicine Heart rate 2020-04-18 87 /min [facility] 14:29:00 of Medicine Body temperature 2020-04-18 36.67 Jessica [facility] Jocelyn ege 14:29:00 of Medicine Body height 2020-04-18 157.5 cm [facility] 14:29:00 of Medicine Body weight 2020-04-18 96.798 kg [facility] 14:29:00 of Medicine BMI 2020-04-18 39.03 kg/m2 [facility] 14:29:00 of Medicine Heart rate 2019-12-02 85 /min [facility] 16:08:00 of Medicine Body temperature 2019-12-02 36.78 Jessica [facility] Jocelyn ege 16:08:00 of Medicine Body height 2019-12-02 157.5 cm [facility] 16:08:00 of Medicine Body weight 2019-12-02 103.511 kg [facility] 16:08:00 of Medicine BMI 2019-12-02 41.74 kg/m2 [facility] 16:08:00 of Medicine Systolic blood 2019-12-02 147 mm[Hg] [facility] [employer] pressure 16:08:00 of Medicine Diastolic blood 2019-12-02 103 mm[Hg] [facility] Colle ge pressure 16:08:00 of Medicine Heart rate 2019-12-02 85 /min [facility] 16:08:00 of Medicine Body temperature 2019-12-02 36.78 Jessica [facility] Jocelyn ege 16:08:00 of Medicine Body height 2019-12-02 157.5 cm [facility] 16:08:00 of Medicine Body weight 2019-12-02 103.511 kg [facility] 16:08:00 of Medicine BMI 2019-12-02 41.74 kg/m2 [facility] 16:08:00 of Medicine Systolic blood 2019-12-02 147 mm[Hg] [facility] [employer] pressure 16:08:00 of Medicine Diastolic blood 2019-12-02 103 mm[Hg] [facility] Colle ge pressure 16:08:00 of Medicine Body height 2019-07-16 157.5 cm [facility] 20:45:00 of Medicine Body weight 2019-07-16 102.513 kg [facility] 20:45:00 of Medicine BMI 2019-07-16 41.34 kg/m2 [facility] 20:45:00 of Medicine Body height 2019-07-16 157.5 cm [facility] 20:45:00 of Medicine Body weight 2019-07-16 102.513 kg [facility] 20:45:00 of Medicine BMI 2019-07-16 41.34 kg/m2 [facility] 20:45:00 of Medicine Body height 2019-06-16 157.5 cm [facility] 16:27:00 of Medicine Body weight 2019-06-16 102.513 kg [facility] 16:27:00 of Medicine BMI 2019-06-16 41.34 kg/m2 [facility] 16:27:00 of Medicine Body height 2019-06-16 157.5 cm [facility] 16:27:00 of Medicine Body weight 2019-06-16 102.513 kg [facility] 16:27:00 of Medicine BMI 2019-06-16 41.34 kg/m2 [facility] 16:27:00 of Medicine Systolic blood 2019-05-12 161 mm[Hg] Patient stated [facility] Jocelyn ege pressure 18:22:00 that she [...] feels fine Heart rate 2019-05-12 91 /min [facility] 18:22:00 of Medicine Body temperature 2019-05-12 36.83 Jessica [facility] ege 18:22:00 of Medicine Body height 2019-05-12 157.5 cm [facility] 18:22:00 of Medicine Body weight 2019-05-12 101.606 kg [facility] 18:22:00 of Medicine BMI 2019-05-12 40.97 kg/m2 [facility] 18:22:00 of Medicine Systolic blood 2019-05-12 161 mm[Hg] Patient stated [facility] pressure 18:22:00 that she rushed of Medicine to get her, takes BP medication. Denies chest pain, SOB, dizzy.. Patient stated she feels fine Diastolic blood 2019-05-12 106 mm[Hg] Patient stated [facility] pressure 18:22:00 that she rushed of Medicine to get her, takes BP medication. Denies chest pain, SOB, dizzy.. Patient stated she feels fine Heart rate 2019-05-12 91 /min [facility] 18:22:00 of Medicine Body temperature 2019-05-12 36.83 Jessica [facility] Jocelyn ege 18:22:00 of Medicine Body height 2019-05-12 157.5 cm [facility] 18:22:00 of Medicine Body weight 2019-05-12 101.606 kg [facility] 18:22:00 of Medicine BMI 2019-05-12 40.97 kg/m2 [facility] 18:22:00 of Medicine Procedures Procedure Date / Time Performed Performing Clinician Sourc e POCT MOLECULAR FLU 2021-11-03 01:09:00 Ignacia Lugo [facility] POCT MOLECULAR STREP 2021-11-03 01:07:00 Ignacia Lugo [facility] VITAMIN B12 2019-12-02 17:22:00 ErinnJen [facility] FERRITIN 2019-12-02 17:22[facility] HEMOGLOBIN A1C 2019-12-02 17:22:00 Hemanth [facility] VITAMIN B1 2019-12-02 17:22:00 ErinnJen [facility] VITAMIN D 25 HYDROXY 2019-12-02 17:22:00 ErinnBravo Li [facility] VITAMIN A 2019-12-02 17:22[facility]00 [facility]ON+[facility]BC+%SAT 2019-12-02 17:22:00 [facility] Plan of Care Planned Activity Planned Date Details Comments Source Future Scheduled 2022-10-[address] [facility] Test 00:00:00 (12+) [code = Medical Center DEPRESSION SCREENING (12+)] Future Scheduled 2022-10-05 COVID-19 VACCINE (#1) [facility] 09:06:07 [code = COVID-19 Hospital VACCINE (#1)] Future Scheduled 2022-10-05 Screening for malignant [facility] 09:06:07 neoplasm of cervix Hospital (procedure) [code = 810304625] Future Scheduled 2022-10-05 BREAST CANCER SCREENING [facility] 09:06:07 [code = BREAST CANCER Hospit al SCREENING] Future Scheduled 2022-10-05 COLONOSCOPY SCREENING [facility] 09:06:07 [code = COLONOSCOPY Hospital SCREENING] Future Scheduled 2022-10-05 INFLUENZA VACCINE [code [facility] 09:06:07 = INFLUENZA VACCINE] Hospita l Future Scheduled 2022-06-13 INFLUENZA VACCINE (#1) [facility] 00:00:00 [code = INFLUENZA Medical Ce nter VACCINE (#1)] Future Scheduled 2022-01-02 Lipid panel (procedure) [facility] Test 00:00:00 [code = 32889882] Medical Ce nter Future Scheduled 2021-04-[address] [facility] Test 00:00:00 Counseling and Medical Cente r Screening (12+) [code = Tobacco Cessation Counseling and Screening (12+)] Future Scheduled 1997 Screening for malignant [facility] Test 00:00:00 neoplasm of cervix Medical C enter (procedure) [code = 183664543] Future Scheduled 1995 DTAP/TDAP/TD VACCINES [facility] Test 00:00:00 (1 - Tdap) [code = Medical C enter DTAP/TDAP/TD VACCINES (1 - Tdap)] Future Scheduled 1994 HEPATITIS C SCREENING [facility] Test 00:00:00 [code = HEPATITIS C Medical Center SCREENING] Future Scheduled 1977-03-11 COVID-19 VACCINE (#1) [facility] Test 00:00:00 [code = COVID-[address] VACCINE (#1)] Future Scheduled [address] Colonography (combo) [facility] Test 00:00:00 [code = CT Colonography [facility] (combo)] Future Scheduled 1976 Screening for malignant [facility] Test 00:00:00 neoplasm of colon Medical Ce nter (procedure) [code = 836996502] Future Scheduled 1976 Screening for malignant [facility] Test 00:00:00 neoplasm of colon Medical Ce nter (procedure) [code = 692445087] Future Scheduled 1976 Screening for malignant [facility] Test 00:00:00 neoplasm of colon Medical Ce nter (procedure) [code = 591012939] Future Scheduled 1976 Screening for malignant [facility] Test 00:00:00 neoplasm of colon Medical Ce nter (procedure) [code = 348422872] Future Scheduled 1975 Sigmoidoscopy [code = CANDE [facility] 00:[facility]:00 Sigmoidoscopy] Medical Cente r Future Scheduled IRON, TIBC AND FERRITIN Ordered: [facility] Test PANEL [code = NOCPT] 12/02/2019 of Medi cine Future Scheduled VITAMIN B6 [code = [employer] Test 88755-6] of Medicine Future Scheduled MAMMOGRAM ANNUAL [code [employer] Test = MAMMOGRAM ANNUAL] of Medic ine Future Scheduled TETANUS SHOT (ADULT) [employer] [employer] Test [code = TETANUS SHOT of Medi cine (ADULT)] Future Scheduled HIV SCREENING [code = [employer] [facility] HIV SCREENING] of Medicine Future Scheduled CERVICAL CANCER [facility] C ollege Test SCREENING 3 YEAR FOLLOW of M edicine UP [code = CERVICAL CANCER SCREENING 3 YEAR FOLLOW UP] Future Scheduled FLU VACCINE > 6 MONTHS [employer] Test [code = FLU VACCINE > 6 of M edicine MONTHS] Future Scheduled BMI FOLLOW UP PLAN [employer] Test [code = BMI FOLLOW UP of Med icine PLAN] Future Scheduled MAMMOGRAM ANNUAL [code [facility] Test = MAMMOGRAM ANNUAL] of Medic ine Future Scheduled TETANUS SHOT (ADULT) [employer] Test [code = TETANUS SHOT of Medi cine (ADULT)] Future Scheduled HIV SCREENING [code = [employer] HIV SCREENING] of Medicine Future Scheduled CERVICAL CANCER [facility] C ollege Test SCREENING 3 YEAR FOLLOW of M edicine UP [code = CERVICAL CANCER SCREENING 3 YEAR FOLLOW UP] Future Scheduled FLU VACCINE > 6 MONTHS [employer] Test [code = FLU VACCINE > 6 of M edicine MONTHS] Future Scheduled BMI FOLLOW UP PLAN [employer] Test [code = BMI FOLLOW UP of Med icine PLAN] Future Scheduled CBC W/O DIFF W PLT Ordered: [employer] Test [code = 6690-2] 05/02/2020 of Medicine Future Scheduled IRON, TIBC AND FERRITIN Ordered: [facility] Test PANEL [code = NOCPT] 05/02/2020 of Medi cine Future Scheduled MAMMOGRAM ANNUAL [code [facility] Test = MAMMOGRAM ANNUAL] of Medic ine Future Scheduled TETANUS SHOT (ADULT) [employer] Test [code = TETANUS SHOT of Medi cine (ADULT)] Future Scheduled HIV SCREENING [code = [employer] HIV SCREENING] of Medicine Future Scheduled CERVICAL CANCER [facility] C ollege Test SCREENING 3 YEAR FOLLOW of M edicine UP [code = CERVICAL CANCER SCREENING 3 YEAR FOLLOW UP] Future Scheduled FLU VACCINE > 6 MONTHS [employer] Test [code = FLU VACCINE > 6 of M edicine MONTHS] Future Scheduled BMI FOLLOW UP PLAN [employer] Test [code = BMI FOLLOW UP of Med icine PLAN] Future Scheduled MAMMOGRAM ANNUAL [code [facility] Test = MAMMOGRAM ANNUAL] of Medic ine Future Scheduled TETANUS SHOT (ADULT) [employer] Test [code = TETANUS SHOT of Medi cine (ADULT)] Future Scheduled HIV SCREENING [code = [facility] College Test HIV SCREENING] of Medicine Future Scheduled CERVICAL CANCER [facility] C ollege Test SCREENING 3 YEAR FOLLOW of M edicine UP [code = CERVICAL CANCER SCREENING 3 YEAR FOLLOW UP] Future Scheduled FLU VACCINE > 6 MONTHS [facility] Test [code = FLU VACCINE > 6 of M edicine MONTHS] Future Scheduled BMI FOLLOW UP PLAN [facility] Test [code = BMI FOLLOW UP of Med icine PLAN] Future Scheduled COMPREHENSIVE METABOLIC Ordered: [facility] Test PANEL [code = 94478-5] 05/12/2019 of Me dicine Future Scheduled CBC W/AUTO DIFF WITH Ordered: [facility] Test PLATELETS [code = 05/12/2019 of Medicin e 07158-4] Future Scheduled IRON [code = 2498-4] Ordered: [employer] [employer] Test 05/12/2019 of Medicine Future Scheduled THYROID PROFILE (T3U - Ordered: [facility] Test T4 - T7 - TSH) [code = 05/12/2019 of Me dicine NOCPT] Future Scheduled FERRITIN [code = Ordered: [facility] Test 49640-1] 05/12/2019 of Medicine Future Scheduled FOLATE [code = 2284-8] Ordered: [facility] Test 05/12/2019 of Medicine Future Scheduled HEMOGLOBIN A1C [code = Ordered: [facility] Test 4548-4] 05/12/2019 of Medicine Future Scheduled PROTIME & PTT [code = Ordered: [facility] Test NOCPT] 05/12/2019 of Medicine Future Scheduled URINALYSIS, MACROSCOPIC Ordered: [facility] Test [code = NOCPT] 05/12/2019 of Medicine Future Scheduled VITAMIN A [code = Ordered: [facility] Test 2923-1] 05/12/2019 of Medicine Future Scheduled VITAMIN B1 [code = Ordered: [facility] [employer] Test 68100-3] 05/12/2019 of Medicine Future Scheduled VITAMIN B12 [code = Ordered: [employer] 2132-9] 05/12/2019 of Medicine Future Scheduled VITAMIN B6 [code = Ordered: [employer] Test 91262-9] 05/12/2019 of Medicine Future Scheduled VITAMIN D 25 HYDROXY Ordered: [employer] Test [code = 1989-3] 05/12/2019 of Medicine Future Scheduled LIPID PANEL [code = Ordered: [employer] 28637-2] 05/12/2019 of Medicine Future Scheduled MAMMOGRAM ANNUAL [code [employer] = MAMMOGRAM ANNUAL] of Medic ine Future Scheduled TETANUS SHOT (ADULT) [employer] Test [code = TETANUS SHOT of Medi cine (ADULT)] Future Scheduled BMI FOLLOW UP PLAN [employer] Test [code = BMI FOLLOW UP of Med icine PLAN] Future Scheduled HIV SCREENING [code = [employer] HIV SCREENING] of Medicine Future Scheduled CERVICAL CANCER [facility]lege Test SCREENING 3 YEAR FOLLOW of M edicine UP [code = CERVICAL CANCER SCREENING 3 YEAR FOLLOW UP] Future Scheduled FLU VACCINE > 6 MONTHS [employer] Test [code = FLU VACCINE > 6 of M edicine MONTHS] Future Scheduled MAMMOGRAM ANNUAL [code [employer] = MAMMOGRAM ANNUAL] of Medic ine Future Scheduled TETANUS SHOT (ADULT) [employer] Test [code = TETANUS SHOT of Medi cine (ADULT)] Future Scheduled BMI FOLLOW UP PLAN [employer] Test [code = BMI FOLLOW UP of Med icine PLAN] Future Scheduled HIV SCREENING [code = [employer] HIV SCREENING] of Medicine Future Scheduled CERVICAL CANCER [facility] [employer] Test SCREENING 3 YEAR FOLLOW of M edicine UP [code = CERVICAL CANCER SCREENING 3 YEAR FOLLOW UP] Future Scheduled FLU VACCINE > 6 MONTHS [employer] Test [code = FLU VACCINE > 6 of M edicine MONTHS] Future Scheduled MAMMOGRAM ANNUAL [code [employer] Test = MAMMOGRAM ANNUAL] of Medic ine Future Scheduled TETANUS SHOT (ADULT) [employer] Test [code = TETANUS SHOT of Medi cine (ADULT)] Future Scheduled BMI FOLLOW UP PLAN [employer] Test [code = BMI FOLLOW UP of Med icine PLAN] Future Scheduled HIV SCREENING [code = [employer] HIV SCREENING] of Medicine Future Scheduled CERVICAL CANCER [facility] [employer] Test SCREENING 3 YEAR FOLLOW of M edicine UP [code = CERVICAL CANCER SCREENING 3 YEAR FOLLOW UP] Future Scheduled FLU VACCINE > 6 MONTHS [employer] Test [code = FLU VACCINE > 6 of M edicine MONTHS] Future Scheduled FL UPPER GI W/SMALL 1 Occurrences [facility] Test BOWEL FOLLOW THRU [code starting of M edicine = 78428] 05/16/2020 until 11/16/2021 Future Scheduled FL ESOPHAGRAM COMPLETE 1 Occurrences [facility] Test [code = 88528-8] starting of Medicine 05/12/2019 until 11/12/2020 Future Scheduled ELECTROCARDIOGRAM 1 Occurrences [facility] [place] Test COMPLETE [code = 73875] starting of M edicine 05/12/2019 until 05/12/2020 Future Scheduled XR CHEST PA AND LATERAL 1 Occurrences [facility] Test [code = 82473-0] starting of Medicine 05/12/2019 until 05/11/2020 Future Scheduled ESOPHAGEAL 1 Occurrences [facility] [employer] Test MANOMETRY/MOTILITY starting of Medici ne [code = NOCPT] 05/12/2019 until 11/11/2019 Encounters Start End Encounter Admission Attending Care Care Encounter Source Date/Time Date/Time Type Type Clinicians Facility Department ID 2021-07-17 Outpatient [facility] Surgery [id number] SLE 21:58:59 BRAVO CURRY 2022-09-04 2022-09-04 Outpatient FELICITA Hendrickson [id number] [facility] 12:00:00 12:00:00 Ciarra Narvaez [facility] 2022-04-23 2022-04-23 Outpatient [facility]_ [facility] [address] [place] 09:51:00 09:51:00 [facility] 2021-11-04 2021-11-04 Letter TIMOTHY Tapia 1.2.840.114 [id number] [facility] 00:00:00 00:00:00 (Out) Qian GARCIA 350.1.13.10 [facility] 4.2.7.2.686 [place] [id number] [place] [address] [address] 2021-11-02 2021-11-02 Urgent Akiko Viera [facility] 1.2.840.114 [id number] Univers 19:00:00 19:05:25 Ignacia Mackey [facility] 350.1.13.10 [facility] 4.2.7.2.686 [place] BRENNA?BLE[id number] [facility] [address] MEDICAL OFFICE BUILDING 2021-11-02 2021-11-02 Outpatient Rafael WERNER [facility] [id number] Univers 19:00:00 19:05:25 [facility] 2021-11-02 2021-11-02 [facility] [id number] Univers 18:45:00 18:45:00 [facility] 2021-10-12 2021-10-12 Outpatient R ASHELY [facility] [id number] Univers 10:00:00 09:48:58 IGNACIA [facility] 2020-05-16 2020-05-16 Office Allyn DIAZ 1.2.840.114 [id number] 13:19:09 15:20:25 Visit es, Bravo AMBULATOR 350.1.13.21 G Y 0.2.7.2.686 [id number] [facility] 2020-05-16 2020-05-16 Office Allyn DIAZ 1.2.840.114 [id number] [facility] 13:19:09 15:20:25 Visit es, Bravo AMBULATOR 350.1.13.21 College G Y 0.2.7.2.686 of [id number] [facility] 800 e 2020-05-02 2020-05-02 Office EMILY Queen 1.2.840.114 [id number] 13:56:12 14:26:12 Visit Vimbai A AMBULATOR 350.1.13.21 Y 0.2.7.2.686 [id number] [facility] 2020-05-02 2020-05-02 Office EMILY Queen 1.2.840.114 [id number] [facility] 13:56:12 14:26:12 Visit Vimbai A AMBULATOR 350.1.13.21 College Y 0.2.7.2.686 of [id number] [facility] 800 e 2020-04-18 2020-04-18 Office Allyn DIAZ 1.2.840.114 [id number] 09:19:54 15:17:15 Visit es, Bravo AMBULATOR 350.1.13.21 G Y 0.2.7.2.686 [id number] [facility] 2020-04-18 2020-04-18 [facility] [place] [facility] 1.2.840.114 [id number] [facility] 09:19:54 15:17:15 Visit es, Bravo AMBULATOR 350.1.13.21 College G Y 0.2.7.2.686 of [id number] [facility] 800 e 2020-04-18 2020-04-18 Outpatient ALLYN SLE [facility] [id number] [facility] 00:00:00 00:00:00 BRAVO CURRY 2020-04-18 2020-04-18 Outpatient [facility] [id number] 5-2 [facility] 00:00:00 00:00:00 [id number] 2020-02-03 2020-02-03 Outpatient [facility]H [facility] [id number] 5-2 [facility] 00:00:00 00:00:00 [id number] 2019-12-02 2019-12-02 [facility] [place] [facility] 1.2.840.114 [id number] 10:01:30 12:40:44 Visit es, Bravo AMBULATOR 350.1.13.21 G Y 0.2.7.2.686 [id number] [facility] 2019-12-02 2019-12-02 [facility] [place] [facility] 1.2.840.114 [id number] [facility] 10:01:30 12:40:44 Visit es, Bravo AMBULATOR 350.1.13.21 College G Y 0.2.7.2.686 of [id number] [facility] 800 e 2019-07-16 2019-07-16 Office KARL Tirado 1.2.840.114 [id number] 13:41:03 15:14:00 Visit [place] AMBULATOR 350.1.13.21 Y 0.2.7.2.686 [id number] 800 2019-07-16 2019-07-16 Office KARL Tirado 1.2.840.[id number] [place] [address] 13:41:03 15:14:00 Visit [place] AMBULATOR 350.1.13.21 College Y 0.2.7.2.686 of [id number] [facility] mo 800 e 2019-06-16 2019-06-16 Office KARL TiradoKenia 1.2.840.114 [id number] 10:26:53 13:08:19 Visit [place] AMBULATOR 350.1.13.21 Y 0.2.7.2.686 [id number] 800 2019-06-16 2019-06-16 Office KARL TiradoKenia 1.2.840.[id number] [place] [address] 10:26:53 13:08:19 Visit [place] AMBULATOR 350.1.13.21 College Y 0.2.7.2.686 of [id number] [facility] 800 e 2019-05-12 2019-05-12 Office EMILY Fry 1.2.840.114 [id number] [facility] 12:57:08 15:12:24 Visit Darian AMBULATOR 350.1.13.21 College Y 0.2.7.2.686 of [id number] [facility] 800 e 2019-05-12 2019-05-12 Office EMILY Fry 1.2.840.114 [id number] 12:57:08 15:12:24 Visit Darian AMBULATOR 350.1.13.21 Y 0.2.7.2.686 [id number] 800 Results Test Description Test Time Test Comments Results Result Comments Source POCT MOLECULAR FLU 2021-11-03 01:20:49 Test Item Value Reference Range Interpretation Comme nts POCT Molecular FluA (test code = 72595-2) Negative Negative POCT Molecular FluB (test code = 31085-0) Negative Negative Lab Interpretation (test code = 99276-2) Normal [facility] MOLECULAR [id number] 01:15:21 Test Item Value Reference Range Interpretation Comments POCT Molecular Strep (test code = Negative Negative 05691-0) Lab Interpretation (test code = Normal 30752-8) [facility]-GLUCOSE [id number] 11:14:00 Test Item Value Reference Range Interpretation Comments POC-GLUCOSE METER 86 mg/dL 70-110 : TESTED A T [facility] 6720 (BEAKER) (test code = [facility] [place], 1538) [address]: Calciner Operator Helper/Techni ashish ID = [id number] for SABAS CHAVEZ BASIC METABOLIC [id number] 05:47:00 Test Item Value Reference Range Interpretation [...] S NOT APPLICABLE FOR DIALYSIS PATIEN TS. [employer] Operator Helper ID - PIAYA LPOCT-GLUCOSE [id number] 05:44:00 Test Item Value Reference Range Interpretation Comments POC-GLUCOSE METER 97 mg/dL 70-110 : [facility] (BEAKER) (test code = [facility], 1538) 11487: Calciner Operator Helper/Techni ashish ID = [id number] for BRANDEE MAYFIELD, POLO CBC W/PLT COUNT & AUTO [id number] 05:31:00 Test Item Value Reference Range Interpretation [...] PERCENT (BEAKER) (test code = 2801) POCT-GLUCOSE [id number] 00:07:00 Test Item Value Reference Range Interpretation Comments POC-GLUCOSE METER 150 mg/dL 70-110 H : TESTED Mustapha Rowell [facility] 6720 (BEAKER) (test code = [place], 1538) 8[address]: Calciner Operator Helper/Techni ashish ID = [id number] for INNAMYRIAM POLO POCT-GLUCOSE [id number] 17:50:00 Test Item Value Reference Range Interpretation Comments POC-GLUCOSE METER 161 mg/dL 70-110 H : TESTED A T [facility] 6720 (BEAKER) (test code = [place], 1538) 14368: Calciner Operator Helper/Techni ashish ID = [id number] for Ramirez Tucker TISSUE [id number] 16:24:00Surgical Pathology Report Case: [id number] Authorizing Provider: Eirnn-Bravo Li Collected: 04/26/2020 10:59 AM MD Darlene Ordering Location: [facility] PERIOPERATIVE Received: 04/26/2020 02:14 PM SERVICES Pathologist: Lea Santillan MD Specimen: Explant, Lap Gastric Band for I and D A. GASTRIC, GASTRIC BAND, REMOVAL: - GASTRIC BAND IDENTIFIED (GROSS ONLY) Signing Pathologist Direct Phone Line: [phone] signed by Lea Santillan MD on 04/26/2020 at 4:24 [id number] obesityOther hyperlipidemia Obstructive sleep apnea Heart disease, unspecified GastricA. Received fresh labeled with the patient's name, medical record number and "explant" is an Allergan brand gastricband measuring 5.5 x 5.5 x 2 cm with a 13 cm in length by 0.3 cm in diameter white tube. Also received is a circular peters Allergan brand Port-A-Cath measuring 3 cm in diameter and 0.9 cm in height. There is a 16.5 cm in length by 0.3 cm in diameter attached catheter. The Port-A-Cath is inscribed with "lot number: [id number] part number: [id number] full range: 0-10 cc." A gross photograph is taken. No sections are submitted-gross only.KEVIN Sigala PA (ASC)N/[id number] 12:53:00 Test Item Value Reference Range Interpretation Comments SODIUM (BEAKER) (test code = 381) 137 meq/L 136-145 POTASSIUM (BEAKER) (test code = 4.2 meq/L 3.5-5.1 379) CHLORIDE (BEAKER) (test code = 382) 103 meq/L 98-107 CO2 (BEAKER) (test code = 355) 26 meq/L 22-29 Cal[employer]er Operator Helper ID - PIAYA LBUN AND CREATININE [id number] 12:53:00 Test Item Value Reference Range Interpretation [...] mg/dL) EGFR (BEAKER) (test 73 mL/min/1.73 ESTIMA AIDE GFR IS code = 1092) sq m NOT ACCURATE CREATININE CLEARANCE IN PREDICTING GLOMERULAR FILTRATION RATE . ESTIMATED GFR I S NOT APPLICABLE FOR DIALYSIS PATIEN TS. Calciner Operator Helper ID - GARTH [id number] 12:36:00 Test Item Value Reference Range Interpretation Comments HEMOGLOBIN (DARRINAKER) (test code = 13.9 GM/DL 11.2-15.7 410) Calciner Operator Helper ID - [id number] [id number] 23:47:24 Test Item Value Reference Range Interpretation Comments VITAMIN B-1 138 nmol/L 64-201 This test was developed and (test code = its performance 31380-4) characteristics determined by [facility] ([facility]). [...] vement Amendments (CLI A). TESTING PERFORMED AT [facility] [address], [address], [place] [address] [place], [place] [address] CLIA NO: [id number] Unle ss Otherwise Indicated, All Testing Performed At: [facility], [address] [place] [address], [place] [address] Laboratory Dire ctor: Jarod Quintana M.D. CLIA Number [id number] [place]. [id number] [facility] [id number] 01:54:35 Test Item Value Reference Range Interpretation Comments VITAMIN A LEVEL (test 0.40 mg/L 0.3-1.2 code = 2923-1) RETINYL PALMITATE 0.02 mg/L 0-0.1 (test code = 01498-1) INTERPRETATION STNRISK Normal Test developed and (test code = 68390-4) charac teristics determined by [facility]. S ee Compliance Stat ement B: XGraph/ [facility] TESTING PERFORM ED AT [facility], [place] [address], [place] [address] [place]. [id number] CL [place] NO. [id number] Unle ss Otherwise Indic ated, All Testing Per formed At: [facility], [address] [place] [address] Laborator y Director: Jarod Quintana M.D. CLIA Number [id number] [place]. [id number] [facility] D 25 [id number] 11:56:15 Test Item Value Reference Range Interpretation [...] All Testing Performed At: [facility], [address] [place] [address] [facility] Director: Jarod Quintana M.D. CLIA Number [id number] [place]. [id number] Lab Interpretation Abnormal (test code = 06262-1) [facility]BC+%[id number] 10:20:21 Test Item Value Reference Range Interpretation Comments IRON (test code = See_Comment [Automate d message] 2498-4) The system [employer] generated this result transmitted ref erence range: 37 - 145 UG/DL. The reference r rehana was not used to interpret this result as normal/abnor mal. UIBC (test code = See_Comment [Automate d message] 2501-5) The system [employer] generated this result transmitted ref erence range: 112 - 34 7 UG/DL. The refe rence range was not u sed to interpret this result as normal/abnor mal. TIBC (test code = See_Comment [Automate d message] 15449-8) The system [employer] generated this result transmitted ref erence range: 250 - 45 0 UG/DL. The refe rence range was not u sed to interpret this result as normal/abnor mal. IRON SATURATION % (test 14 % 20-50 L Unl ess Otherwise code = 2502-3) Indicated, Al l Testing Performed At: [facility], [address] [place] [address] Laborator y Director: Jarod Quintana M.D. CLIA Number [id number] Cap Accreditation N o. Lab Interpretation Abnormal (test code = 96702-2) [facility] [id number] 10:20:02 Test Item Value Reference Range Interpretation Comments VITAMIN B-12 (test 533 PG/ML 200-950 Unless O therwise code = 2132-9) Indicated, Al l Testing Performed At: [facility], [address] [place] [address] Laborator y Director: Jarod Quintana M.D. CLIA Number [id number] [place]. [address]-58 [facility]2020-02-21 10:20:02 Test Item Value Reference Range Interpretation Comments FERRITIN (test code = See_Comment H Unles s Otherwise 41233-8) Indicated, All Testing Perform ed At: [facility], [address] [place] [address] Laborator y Director: Jarod Quintana M.D. CLIA Number [id number] [place]. 88949-02 [Autom ated message] The sy stem which generated this result transmit aide reference range : 13 - 200 NG/ML. The reference range was not used to int erpret this result as normal/abnormal . Lab Interpretation (test Abnormal code = 46119-4) [facility] [id number] 08:03:34 Test Item Value Reference Range Interpretation Comments HEMOGLOBIN A1C (test 5.5 % 4.2-5.6 Unless Otherwise code = 4548-4) Indicated, Al l Testing Performed At: [facility], [address] [place] [address] Laborator y Director: Jarod Quintana M.D. CLIA Number [id number] [place]. [id number] [facility], [facility]ST, 2 [id number] 15:35:00Reason for Exam:->bariatric surgery status; abdominal pain,LUQ, Gastroesophageal reflux disease,esophagitis presence not specificied, pre-operative clearanceFINAL REPORT History provided: Bariatric surgery, abdominal pain CHEST PA AND LATERAL COMPARISON STUDY: 01/01/2019 Heart size normal. Dual lead left subclavian ICD. Lungs clear and vascularity normal. Signed: Patric Tobar MDReport Verified Date/Time: 08/26/2019 15:35:48 Reading Location: [facility] Diagnostic Imaging Reading Room - [facility] 1310.12 TISSUE [id number] 09:50:00Surgical Pathology Report Case: [id number] Authorizing Provider: Darian Fry MD Collected: 07/23/2019 0722 Ordering Location: [facility] Endoscopy Received: 07/23/2019 1333 Services Pathologist:Lea Santillan MD Specimens: A) - Biopsy, Gastric, [...] DYSPLASIA, MALIGNANCY Signing Pathologist Direct Phone Line: [phone] onically signed by Lea Santillan MD on 07/27/2019 at 9:50 [id number]. Biopsy gastric, description rule out H. Pylori. [...] evaluated Immunohistochemistry technical testing was performed at [facility], Pathology Laboratory where it was [...] to perform high complexity clinical laboratory testing.HEMOGLOBIN [id number] 12:55:00 Test Item Value Reference Range Interpretation Comments HEMOGLOBIN A1C (BEAKER) (test code = 4.8 % 4.3-6.1 368) LIPID [id number] 08:01:00 Test Item Value Reference Range Interpretation [...] 130-159 High 160-189 Very High >=190COMPREHENSIVE METABOLIC [id number] 08:01:00 Test Item Value Reference Range Interpretation [...] FOR DIALYSIS PATIEN TS. TSH/FREE T4 IF [id number] 06:11:00 Test Item Value Reference Range Interpretation Comments THYROID STIMULATING HORMONE 2.58 uIU/mL 0.35-4.94 (BEAKER) (test code = 772) VITAMIN B12 AND [id number] 06:11:00 Test Item Value Reference Range Interpretation [...] 0-0 (BEAKER) (test code = 413) URINALYSIS [id number] 02:49:00 Test Item Value Reference Range Interpretation Comments RBC UA (BEAKER) (test code = 519) < /HPF WBC UA (BEAKER) (test code = 520) 1 /HPF MUCUS (BEAKER) (test code = 1574) Many SQUAMOUS EPITHELIAL (BEAKER) (test 4 /HPF code = 516) URINALYSIS WITH MICROSCOPIC IF [id number] 02:46:00 Test Item Value Reference Range Interpretation [...] pg/mL 0-100 (test code = 700) TROPONIN [id number] 15:40:00 Test Item Value Reference Range Interpretation [...] acute neurological disease, and persistent tachyarrhythmia.BASIC METABOLIC [id number] 15:39:00 Test Item Value Reference Range Interpretation [...] m DATA TO CALCULA TE ESTIMATED GFR. [id number] 15:33:00 Test Item Value Reference Range Interpretation Comments MAGNESIUM (BEAKER) (test code = 2.0 mg/dL 1.6-2.6 627) RAD, CHEST, 1 VIEW, NON [id number] 15:29:00Reason for exam:->chest painIs the patient ?->UnknownFINAL REPORT TECHNIQUE: Frontal chest radiograph dated 01/01/2019. CLINICAL HISTORY: Chest pain COMPARISON STUDY: None IMPRESSION:Left-sided, dual-chamber defibrillator is in place.No pleural effusion or pneumothorax. Cardiomediastinal silhouette is normal in size. No pulmonary edema. No fracture. Signed: Bg Zamudioeport Verified Date/Time: 01/01/2019 15:29:08 ReadingLocation: [facility] Radiology Reading Room Electronically signed by: BG ZAMUDIO MD on 01/01 03:29 [id number]/[id number] 15:23:00 Test Item Value Reference Range Interpretation [...] for patients with mechanical heart valves. SCREEN, [id number] 15:23:00 Test Item Value Reference Range Interpretation Comments TEST URINE (BEAKER) (test Negative code = 583) CBC W/PLT COUNT & AUTO [id number] 15:15:00 Test Item Value Reference Range Interpretation [...] (BEAKER) (test code = 2801) CT, BRAIN/STROKE [id number] 14:33:00Reason for exam:->NUMBNESSReason for exam:->HEADACHEIs the patient [...] Youssef Verified Date/Time: 01/01/2019 14:33:00 Reading Location: [facility] Radiology Reading Room
[2022-12-26] MEDS ORDERED: FAMOTIDINE 20 MG/2 ML VIAL IV ONE (15:46)
[2022-12-26 15:53] LABS: Absolute Lymphocytes (CBC) 1.9 K/uL (0.7-4.9); Hematocrit 39.6 % (36.0-45.0); Lymphocytes % 31.8 % (15.3-44.8); MCV 81.6 fL (80-100); MPV 7.9 fL (7.6-11.3); RBC Red Blood Cell Count 4.86 M/uL (3.86-4.86)
[2022-12-26 15:57] LABS: Protime INR 1.03
[2022-12-26 16:11] LABS: ALT/SGPT 47 U/L (13-56); AST/SGOT 24 U/L (15-37); Albumin 3.7 g/dL (3.4-5.0); Alkaline Phosphatase 147 U/L (45-117); BUN Blood Urea Nitrogen 14 mg/dL (7-18); Bicarbonate 30 mEq/L (21-32); Bilirubin Total 0.4 mg/dL (0.2-1.0); Glomerular Filtration Rate 91 ml/min (=/>90); Glucose Level 106 mg/dL (74-106); Magnesium 2.1 mg/dL (1.6-2.4); NT PRO-BNP 44 pg/mL (<125); Potassium 3.4 mEq/L (3.5-5.1); Protein, Total 7.8 g/dL (6.4-8.2); Sodium Level 136 mEq/L (136-145)
[2022-12-26 16:21] LABS: Bilirubin Direct < 0.1 mg/dL (0-0.2)
[2022-12-26 17:10] LABS: SARS-COV-2 RT PCR NEGATIVE (NEGATIVE)
[2022-12-26] MEDS ORDERED: POTASSIUM 25 MEQ EFFERV TAB ONE (17:16)
--- NOTE | 2022-12-26 17:40 | RAD REPORT ---
EXAM DESCRIPTION: George Single View12/26/2022 3:43 pm CLINICAL HISTORY: Chest pain COMPARISON: 2021 FINDINGS: The lungs appear clear of acute infiltrate. The heart is mildly enlarged. Pacemaker leads are in place. IMPRESSION: No acute abnormalities displayed
[2022-12-26] MEDS ORDERED: MAGNES/ALUMIN/SIMET 30ML UCUP ONE (18:31)
[2022-12-26] MEDS ORDERED: LIDOCAINE VISCOUS 2% SOLN 15 ML UDC ONE (18:31)
--- NOTE | 2022-12-26 19:19 | ER ---
Nurse's Notes [facility] Name: Vanessa Gonzalez Age: 47 yrs Sex: Female : 1975 Arrival Date: 12/26/2022 Time: 14:55 Bed 16 Private MD: Diagnosis: Chest pain, unspecified;Gastro-esophageal reflux disease without esophagitis Presentation: 12/26 15:00 Chief complaint: Patient states: my chest feels like there is something sitting on it kr3 and it is getting harder to breathe. It started yesterday and went away and then started back today at 11. It also is causing my mouth to be dry. Coronavirus screen: Vaccine status: Patient reports receiving the 2nd dose of the covid vaccine. Ebola Screen: Patient denies travel to an Ebola-affected area in the 21 days before illness onset. Initial Sepsis Screen: Does the patient meet any 2 criteria? No. Patient's initial sepsis screen is negative. Does the patient have a suspected source of infection? No. Patient's initial sepsis screen is negative. Risk Assessment: Do you want to hurt yourself or someone else? Patient reports no desire to harm self or others. Onset of symptoms was December 25, 2022. 15:00 Method Of Arrival: Ambulatory kr3 15:00 Acuity: ANDREW 3 kr3 Triage Assessment: 15:05 General: Appears in no apparent distress. uncomfortable, Behavior is calm, cooperative, kr3 appropriate for age. Pain: Complains of pain in anterior aspect of left upper chest. Respiratory: Reports shortness of breath Onset: The symptoms/episode began/occurred yesterday, the patient has mild shortness of breath. Historical: - Allergies: 15:04 ANYTHING THAT PROLONGS QT; kr3 15:04 Ketorolac; kr3 15:04 Morphine; kr3 15:56 Benadryl; db - PMHx: 15:04 Anxiety; Depression; GERD; High Cholesterol; Hypertension; Pacemaker; prolonged QT kr3 interval; TIA; 15:56 Rheumatoid arthritis; db - PSHx: 15:04 section; Cholecystectomy; Gastric Bypass; hysterectomy; kr3 - Immunization history:: Adult Immunizations up to date. - Social history:: Smoking status: Patient denies any tobacco usage or history of. Screenin:57 [facility] ED Fall Risk Assessment (Adult) History of falling in the last 3 months, db including since admission No falls in past 3 months (0 pts) Confusion or Disorientation No (0 pts). Abuse screen: Denies threats or abuse. Denies injuries from another. Nutritional screening: No deficits noted. Tuberculosis screening: No symptoms or risk factors identified. Assessment: 15:57 Reassessment: Patient appears in no apparent distress at this time. Patient and/or db family updated on plan of care and expected duration. Pain level reassessed. Patient is alert, oriented x 3, equal unlabored respirations, skin warm/dry/pink. chest discomfort SOB. Pain: Complains of pain in chest. Cardiovascular: Rhythm is sinus rhythm. Respiratory: Airway is patent Respiratory effort is even, unlabored, Respiratory pattern is regular, symmetrical, Breath sounds are clear bilaterally. Vital Signs: 15:00 BP 120 / 89; Pulse 66; Resp 18; Temp 97.1(TE); Pulse Ox 100% on R/A; Weight 102.51 kg; kr3 Height 5 ft. 2 in. ; Pain 6/10; 15:00 Body Mass Index 41.34 (102.51 kg, 157.48 cm) kr3 15:00 Pain Scale: Adult kr3 ED Course: 14:55 Patient arrived in ED. rg4 15:04 Triage completed. kr3 15:06 Arm band placed on right wrist. kr3 15:18 Brittani Yanez FNP-C is PHCP. snw 15:18 García Gray MD is Attending Physician. snw 15:40 Initial lab(s) drawn, by ED staff, sent to lab. Inserted saline lock: 20 gauge in right aa5 antecubital area, using aseptic technique. Blood collected. IV inserted by Abi Parry [facility]. 15:45 XRAY Chest (1 view) In Process Unspecified. EDMS 15:47 Basic Metabolic Panel Sent. kj1 15:47 CBC with Diff Sent. kj1 15:47 LFT's Sent. kj1 15:47 Magnesium Sent. kj1 15:47 NT PRO-BNP Sent. kj1 15:47 PT-INR Sent. kj1 15:47 Troponin HS Sent. kj1 15:56 Rosalinda Valdez, RN is Primary Nurse. db Administered Medications: 15:45 Drug: Famotidine IVP 20 mg Route: IVP; Site: right antecubital; aa5 17:15 Drug: Potassium PO Effervescent Tablet 25 mEq Route: PO; db 18:29 Drug: GI Cocktail without - (Maalox PO Suspension 30 ml, Lidocaine Mucous db Membrane Liquid 2 % 15 ml) Route: PO; Outcome: 19:18 Discharge ordered by MD. wilson Signatures: Dispatcher [employer] EDMS Brittani Yanez, PROGRESSIVE ASSEMBLER AND FITTER-C PROGRESSIVE ASSEMBLER AND FITTER-Csnw Trupti Lauren, RN RN pietro5 Sahra Collazo4 Abi Parry1 Maryjo Palmer RN RN saranya3 Rosalinda Valdez RN RN db Corrections: (The following items were deleted from the chart) 15:05 15:04 PSHx: pacemaker; kr3 kr3
--- NOTE | 2022-12-26 19:19 | EDPHYS ---
Physician Documentation [facility] Name: Vanessa Gonzalez Age: 47 yrs Sex: Female : 1975 Arrival Date: 12/26/2022 Time: 14:55 Bed 16 Private MD: ED Physician García Gray HPI: 12/26 15:52 This 47 yrs old Female presents to ER via Ambulatory with complaints of Chest snw Discomfort, Shortness Of Breath. 15:52 The patient or guardian reports chest pain that is located primarily in the epigastric snw area. Onset: 4 day(s) ago, and became worse today, and became persistent. The pain does not radiate. Associated signs and symptoms: Pertinent positives: shortness of breath. The chest pain is described as a heaviness. Duration: The patient or guardian reports multiple episodes. Severity of pain: At its worst the pain was moderate. 15:53 The patient has experienced similar episodes in the past. The patient has not recently snw seen a physician. states she is on prednisone and Humira . Historical: - Allergies: 15:04 ANYTHING THAT PROLONGS QT; kr3 15:04 Ketorolac; kr3 15:04 Morphine; kr3 15:56 Benadryl; db - PMHx: 15:04 Anxiety; Depression; GERD; High Cholesterol; Hypertension; Pacemaker; prolonged QT kr3 interval; TIA; 15:56 Rheumatoid arthritis; db - PSHx: 15:04 section; Cholecystectomy; Gastric Bypass; hysterectomy; kr3 - Immunization history:: Adult Immunizations up to date. - Social history:: Smoking status: Patient denies any tobacco usage or history of. ROS: 15:50 Constitutional: Negative for fever, chills, and weight loss, Eyes: Negative for injury, snw pain, redness, and discharge, ENT: Negative for injury, pain, and discharge, sores on lips, mouth excessively dry Neck: Negative for injury, pain, and swelling, Cardiovascular: Negative for chest palpitations and edema, + chest pain 15:50 Abdomen/GI: Negative for abdominal pain, nausea, vomiting, diarrhea, and constipation, Back: Negative for injury and pain, : Negative for injury, bleeding, discharge, and swelling, MS/Extremity: Negative for injury and deformity, Skin: Negative for injury, rash, and discoloration, Neuro: Negative for headache, weakness, numbness, tingling, and seizure, Psych: Negative for depression, anxiety, suicide ideation, homicidal ideation, and hallucinations. 15:50 Respiratory: Positive for shortness of breath, at rest. Exam: 15:49 Constitutional: This is a well developed, well nourished patient who is awake, alert, snw and in no acute distress. Head/Face: Normocephalic, atraumatic. Eyes: Pupils equal round and reactive to light, extra-ocular motions intact. Lids and lashes normal. Conjunctiva and sclera are non-icteric and not injected. Cornea within normal limits. Periorbital areas with no swelling, redness, or edema. ENT: Nares patent. No nasal discharge, no septal abnormalities noted. Tympanic membranes are normal and external auditory canals are clear. Oropharynx with no redness, swelling, or masses, exudates, or evidence of obstruction, uvula midline. Mucous membranes dry, lower lips with some swelling and soreness. Neck: Trachea midline, no thyromegaly or masses palpated, and no cervical lymphadenopathy. Supple, full range of motion without nuchal rigidity, or vertebral point tenderness. No Meningismus. Chest/axilla: Normal chest wall appearance and motion. Nontender with no deformity. No lesions are appreciated. Cardiovascular: Regular rate and rhythm with a normal S1 and S2. No gallops, murmurs, or rubs. Normal PMI, no JVD. No pulse deficits. Respiratory: Lungs have equal breath sounds bilaterally, clear to auscultation and percussion. No rales, rhonchi or wheezes noted. No increased work of breathing, no retractions or nasal flaring. Abdomen/GI: Soft, non-tender, with normal bowel sounds. No distension or tympany. No guarding or rebound. No evidence of tenderness throughout. Back: No spinal tenderness. No costovertebral tenderness. Full range of motion. Skin: Warm, dry with normal turgor. Normal color with no rashes, no lesions, and no evidence of cellulitis. MS/ Extremity: Pulses equal, no cyanosis. Neurovascular intact. Full, normal range of motion. Neuro: Awake and alert, GCS 15, oriented to person, place, time, and situation. Cranial nerves II-XII grossly intact. Motor strength 5/5 in all extremities. Sensory grossly intact. Cerebellar exam normal. Normal gait. Psych: Awake, alert, with orientation to person, place and time. Behavior, mood, and affect are within normal limits. Vital Signs: 15:00 BP 120 / 89; Pulse 66; Resp 18; Temp 97.1(TE); Pulse Ox 100% on R/A; Weight 102.51 kg; kr3 Height 5 ft. 2 in. ; Pain 6/10; 15:00 Body Mass Index 41.34 (102.51 kg, 157.48 cm) kr3 15:00 Pain Scale: Adult kr3 MDM: 15:20 Patient medically screened. 12/26 15:19 Order name: Basic Metabolic Panel; Complete Time: 16:28 12/26 15:19 Order name: CBC with Diff; Complete Time: 15:55 12/26 15:19 Order name: LFT's; Complete Time: 16:28 12/26 15:19 Order name: Magnesium; Complete Time: 16:28 12/26 15:19 Order name: NT PRO-BNP; Complete Time: 16:28 12/26 15:19 Order name: PT-INR; Complete Time: 16:06 12/26 15:19 Order name: Troponin HS; Complete Time: 16:28 12/26 15:19 Order name: EKG; Complete Time: 15:20 12/26 15:19 Order name: Cardiac monitoring; Complete Time: 15:47 12/26 15:19 Order name: EKG - Nurse/Tech; Complete Time: 15:38 12/26 15:19 Order name: IV Saline Lock; Complete Time: 15:45 12/26 15:19 Order name: Labs collected and sent; Complete Time: 15:45 12/26 15:19 Order name: O2 Per Protocol; Complete Time: 15:39 12/26 15:19 Order name: O2 Sat Monitoring; Complete Time: 15:47 12/26 15:49 Order name: Strep; Complete Time: 17:03 12/26 15:49 Order name: COVID-19/FLU A+B; Complete Time: 17:13 12/26 15:19 Order name: XRAY Chest (1 view); Complete Time: 17:47 snw 12/26 16:53 Order name: Throat Culture EDMS Administered Medications: 15:45 Drug: Famotidine IVP 20 mg Route: IVP; Site: right antecubital; aa5 17:15 Drug: Potassium PO Effervescent Tablet 25 mEq Route: PO; db 18:29 Drug: GI Cocktail without - (Maalox PO Suspension 30 ml, Lidocaine Mucous db Membrane Liquid 2 % 15 ml) Route: PO; Disposition Summary: 12/26/22 19:18 Discharge Ordered Location: Home snw Condition: Stable snw Diagnosis - Chest pain, unspecified snw - Gastro-esophageal reflux disease without esophagitis snw Followup: snw - With: Emergency Department - When: As needed - Reason: Worsening of condition Followup: snw - With: Private Physician - When: 2 - 3 days - Reason: Recheck today's complaints, Continuance of care, Re-evaluation by your physician Forms: - Medication Reconciliation Form snw - Thank You Letter snw - Antibiotic Education snw - Prescription Opioid Use snw Signatures: Dispatcher [employer] EDMS Brittani Yanez, SEE WHEELER-C SEE WHEELER-Csnw Trupti Lauren RN RN aa5 Maryjo Palmer RN RN kr3 Rosalinda Valdez, RN RN db Corrections: (The following items were deleted from the chart) 15:05 15:04 PSHx: pacemaker; kr3 kr3
[2022-12-26 22:05] VITALS: O2SAT 100
[2022-12-26 22:06] VITALS: BP 130/94; TEMP 97.7
--- NOTE | 2022-12-27 11:45 | EKG ---
Test Date: 2022-12-26 Test Time: 15:12:03 Electronic Prepress Technician: HUSSAIN MEASUREMENT RESULTS: Intervals: Rate: 60 MO: 194 QRSD: 90 QT: 460 QTc: 460 [place]: P: 18 MO: 194 QRS: 15 T: 28 INTERPRETIVE STATEMENTS: Electronic atrial pacemaker Compared to ECG 05/27/2022 12:47:48 Prolonged QT interval no longer present Electronically Signed On 12-27-22 11:44:09 CDT by Braeden Mejía
== END 2022-12-26 19:46 | disposition home or self-care (01) ==
LOC: ER 14:53
DX: R07.89 Other chest pain (principal); K21.9 Gastro-esophageal reflux disease without esophagitis; I10 Essential (primary) hypertension; Z95.0 Presence of cardiac pacemaker; Z88.5 Allergy status to narcotic agent; Z88.8 Allergy status to other drugs, medicaments and biological substances; Z20.822 Contact with and (suspected) exposure to COVID-19
CPT/HCPCS: 93005; 87070; 85025; 80048; 36415; 83735; 85610; 80076; 87081; 84484; 83880; 0240U; 71045; 96374; 99284

== ENCOUNTER 2023-01-03 15:42 | Observation (INO) | payer BC ==
[2023-01-03] MEDS ORDERED: NITROGLYCERIN 0.4 MG/TAB SL ONE (16:09)
[2023-01-03] MEDS ORDERED: ASPIRIN EC 325 MG TABLET PO ONE (16:09)
--- OUTSIDE RECORDS SUMMARY | 2023-01-03 16:20 | XMS REPORT | Continuity of Care Document ---
:1975 Author Organization [facility] t Address [address] [facility]. [address] [place] [address] Care Team Providers Name Role Phone Asked, No Pcp Primary Care Physician Unavailable BRAVO PERLA Attending Clinician UnavailCiarra Mary Attending Clinician Unavailable PAIGE Attending Clinician Unavailable Regina HECK, Qian Rowell Attending Clinician Unavailable Akiko Viera MD Attending Clinician Ignacia Jo Attending Clinician AKIKO VIERA Attending Clinician Unavailable IGNACIA LUGO Attending Clinician Unavailable Bravo Perla MD Attending Clinician [phone] Kandis Pate Attending Clinician DARIAN FRY Attending Clinician Unavailable Candida GARCIA, Madison Attending Clinician Unavailable Galvani MD, Darian Attending Clinician TIMOTHY ROSARIO Attending Clinician Unavailable BRAVO PERLA Admitting Clinician UnavailCiarra Mary Admitting Clinician Unavailable PAIGE Admitting Clinician Unavailable DARIAN FRY Admitting Clinician Unavailable KETURAH ROLLINS Admitting Clinician Unavailable Payers Payer Name Policy Type Policy Number Effective Date Expiration Date Rose DE LA ROSA [id number] 2018 00:00:00 HMO/POS/OPEN ACCESS Problems Condition Condition Condition Status Onset Resolution Last Treating Co mments Source Name Details Category Date Date Treatment Clinician Date S/P S/P Disease Active [facility] gastric gastric 05-21 [place] bypass bypass 00:00: of 04/26/20 04/26/20 Medicin e GERD GERD Disease Active [facility] ([facility]astroeso (gastroeso 7-15 Shyanne kes phageal phageal 00:00: Medical reflux reflux 00 Center disease) disease) Dysphagia Dysphagia Disease Active [facility] Morbid Morbid Disease Recurre 2018-[address] [facility] obesity obesity nce 0-11 [facility] 00:[facility]: Medical 00 [place] TIA TIA Disease Active [facility] (transient (transient 3-22 Shyanne kes ischemic ischemic 00:00: Medica l attack) attack) 00 [place] 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 [facility]osp[facility] 00 l No known No known Disease Unive rs active active ity of problems problems [place] [facility] Allergies, Adverse Reactions, Alerts Allergy Allergy Status Severity Reaction(s) Onset Inactive Treating Comm ents Source Name Type Date Date Clinician Ketorola Propensi Active Anaphylaxis 2019- U nivers c ty to 04-18 ity of adverse 00:00: [place] reaction 00 Medical s Branch KETOROLA DRUG Active High Anaphylaxis 2019- Uni vers C INGREDI 04-18 ity of 00:00: [place] 00 Medical Branch Toradol Propensi Active Severe [facility] ty to 04-18 [place] adverse 00:00: of reaction 00 Medicin s to e drug KETOROLA Allergy Active High Sob [facility] 00:[facility]: Medical 00 [place] MORPHINE Allergy Active 2019-[address] [facility] 00:[facility]: Medical 00 Center Morphine Drug Active Hives, bradycard [facility] Allergy Shortness Of 3-22 ia Virgen es Breath, 00:00: Medical Other (See 00 Center Comments) Ketorola Drug Active Hives, bradycard [facility] c Allergy Shortness Of 3-22 ia Virgen es Breath, 00:00: Medical Other (See 00 Center Comments) Morphine Propensi Active SOB, Method i ty to 10-28 vomit, st adverse 00:00: low BP Hospita reaction 00 l s to drug Ketorola Propensi Active Anaphylaxis M ethodi c ty to 10-28 st adverse 00:00: Hospita reaction 00 l s to drug MORPHINE DRUG Active High Hives Univers INGREDI 10-28 ity of 00:00: [place] 00 Medical Branch Morphine Drug Active Shortness of SobSOB, U nivers Allergy Breath 10-28 vomit, ity of 00:00: low [place] 00 BPbradyca Medical rdiaSOB, Branch vomit, low BP Ketorola Propensi Active Anaphylaxis Rash [facility] c & ty to 10-28 [facility] [place] adverse 00:00: of ine & reaction 00 Medicin Lido s to e drug Social History Social Habit Start Date Stop Date Quantity Comments Source History SDOH [facility] Alcohol Comment Medical C enter History SDOH [facility] Alcohol Std Medical Cente r Drinks History SDOH [facility] Alcohol Binge Medical Lisa ter Exposure to Yes [facility] SARS-CoV-2 [facility] (event) Branch Alcohol intake 2020-04-26 2020-04-[address] Virgen es 00:00:00 00:00:00 non-drinker of Medical Ce nter alcohol (finding) Tobacco use and 2019-07-21 2019-07-[address] [facility] Shyanne kes exposure 00:00:00 00:00:00 Medical Center History SDOH 2019-07-21 2019-07-[address] [facility] Alcohol Frequency 00:00:00 00:00:00 Medical Center Sex Assigned At [address] Shyanne kes 00:00:00 00:00:00 Medical Center Smoking Status Start Date Stop Date Source Tobacco smoking consumption [facility] unknown Never smoker [facility] Medical Branch Medications Ordered Filled Start Stop Current Ordering Indication Dosage Frequency Signature Comments Components Source Medication Medication Date Date Medication? Clinician (SIG) Name Name benzonatate Yes [id number] 200mg Take 2 Univers 100 mg 1-21 capsules ity of capsule 00:00: by mouth [place] 00 every 8 Medical (eight) Branch hours as needed for Cough. azelastine Yes [id number] 1{spray Use 1 Univers 137 mcg 1-21 } [place] in ity of (0.1 %) 00:00: each [place] nasal spray 00 nostril 2 Med ical (two) Branch times daily. Use in each nostril as directed fluticasone Yes [id number] 1{spray Use 1 Univers propionate 1-21 } [place] in ity o f 50 00:00: each [place] mcg/actuati 00 nostril Medic al on nasal daily. Branch spray benzonatate Yes [id number] 200mg Take 2 Univers 100 mg 1-21 capsules ity of capsule 00:00: by mouth [place] 00 every 8 Medical (eight) Branch hours as needed for Cough. azelastine Yes [id number] 1{spray Use 1 Univers 137 mcg 1-21 } [place] in ity of (0.1 %) 00:00: each [place] nasal spray 00 nostril 2 Med ical (two) Branch times daily. Use in each nostril as directed fluticasone 2021-0 Yes [id number] 1{spray Use 1 Univers propionate 1-21 } [place] in ity o f 50 00:00: each [place] mcg/actuati 00 nostril Medic al on nasal daily. Branch spray amLODIPine 2020-10 Yes 2.5mg Take 2.5 Un jeremy 5 mg tablet 2-31 mg by ity of 09:38: mouth. [address] nebivoloL 5 2020-10 Yes 5mg Take 5 mg U nivers mg tablet 2-31 by mouth. ity o f 09:38: [address] ALPRAZolam 2020-10 Yes .5mg Take 0.5 Uni vers 0.5 mg 2-31 mg by ity of tablet 09:38: mouth. [address] amLODIPine 2020-10 Yes 2.5mg Take 2.5 Un jeremy 5 mg tablet 2-31 mg by ity of 09:38: mouth. [address] nebivoloL 5 2020-10 Yes 5mg Take 5 mg U nivers mg tablet 2-31 by mouth. ity o f 09:38: [address] ALPRAZolam 2020-10 Yes .5mg Take 0.5 Uni vers 0.5 mg 2-31 mg by ity of tablet 09:38: mouth. [address] REPATHA 2020-10 Yes Univers SURECLICK 1-29 ity of 140 mg/mL 00:00: [place] PnIj [facility] REPATHA 2020-10 Yes Univers SURECLICK 1-29 ity of 140 mg/mL 00:00: [place] [address] pantoprazol 2020-10 Yes Univer s e 40 mg EC 1-23 ity of tablet 00:00: [address] pantoprazol 2020-10 Yes Univer s e 40 mg EC 1-23 ity of tablet 00:00: [address] Evolocumab 0 Yes Inject Baylo r with 04 into the [place] Infusor 18:28: skin. of (REPATHA 16 Medicin PUSHTRONEX e SYSTEM) 420 MG/3.5ML SOCT evolocumab 2019-0 Yes 140mg Q14D Inject [address] (REPATHA 7-16 mg [facility] SYRINGE) 14:02: subcutaneo Med ical 140 mg/mL 23 usly every Cent er Syrg 14 (fourteen) days . nebivolol 2019-0 Yes 5mg QD Take [address] (BYSTOLIC) 7-16 by mouth [facility] 5 MG tablet 14:02: daily. Medi rah 23 [place] ALPRAZolam 2019-0 Yes .5mg QD Take 0.[address] (XANAX XR) 7-16 mg by [facility] 0.5 MG 24 14:02: mouth Medical hr tablet 23 every Center morning. topiramate 2020-0 Yes 50mg QD Take [address] (TOPAMAX) 7-16 by mouth [facility] 50 MG 14:02: nightly . Medical tablet 23 [place] ergocalcife 2019-0 Yes [id number] Q7D Take [facility] rol 7-16 50,000 [facility] (VITAMIN 14:02: Units by Medic al D2) 1,250 23 mouth once Cent er mcg (50,000 a week. unit) capsule evolocumab 2020-0 Yes 140mg Q14D Inject 140 [...] Medical tablet 23 Center ergocalcife 2020-0 Yes [id number] Q7D Take [facility] rol 7-16 50,000 [facility] (VITAMIN 14:02: Units by Medic al D2) 1,250 23 mouth once Cent er mcg (50,000 a week. unit) capsule pantoprazol 2020-0 Yes 40mg QD Take [address] e 7-16 tablet (40 [facility] (PROTONIX) 00:00: mg total) Me dical 40 MG 00 by mouth Center tablet daily. pantoprazol 2020-0 Yes 40mg QD Take [address] e 7-16 tablet (40 [facility] (PROTONIX) 00:00: mg total) Me dical 40 MG 00 by mouth Center tablet daily. Topiramate 2020-0 2020- No 50mg Take 50 mg [facility] ER (QUDEXY 7-07 07-07 by mouth Jocelyn ege XR) 25 MG 14:31: 00:00 daily. of CS24 12 :00 Medicin e Evolocumab 2020-0 Yes Inject Baylo r with 7-07 into the [place] Infus[facility] 14:31: skin. of (REPATHA 09 Medicin PUSHTRONEX e SYSTEM) 420 MG/3.5ML SOCT Evolocumab 2020-0 Yes Inject Baylo r with 7-07 into the [place] Infusor 14:31: skin. of (REPATHA 09 Medicin [...] e alprazolam 2020-0 Yes .5mg Take 0.5 [place] kacy (XANAX) 0.5 2-20 mg by College MG tablet 16:12: mouth of 20 nightly as Medicin needed for e Sleep. Evolocumab 2020-0 Yes Inject Baylo r with 2-20 into the [place] Infusor 16:12: skin. of (REPATHA 20 Medicin PUSHTRONEX e SYSTEM) 420 MG/3.5ML SOCT Topiramate 2020-0 Yes 50mg Take 50 mg [facility] ER (QUDEXY 2-20 by mouth Colle ge XR) 25 MG 16:12: daily. of CS24 20 Medicin e Evolocumab 2018-0 Yes Inject Baylo r with 7-31 into the [place] Infusor 23:18: skin. of (REPATHA 27 Medicin PUSHTRONEX e SYSTEM) 420 MG/3.5ML SOCT Evolocumab 2018-0 Yes Inject Baylo r with 7-31 into the College Infusor 23:18: skin. of (REPATHA 27 Medicin PUSHTRONEX e SYSTEM) 420 MG/3.5ML SOCT Evolocumab 2018-0 Yes Inject Baylo r with 7-31 into the [place] Infusor 23:18: skin. of (REPATHA 27 Medicin PUSHTRONEX e SYSTEM) 420 MG/3.5ML SOCT alprazolam 2018- Yes .5mg Take 0.5 [place] kacy (XANAX) 0.5 7-31 mg by College MG tablet 23:11: mouth of 21 nightly as Medicin needed for e Sleep. alprazolam Yes .5mg Take 0.5 [place] kacy (XANAX) 0.5 7-31 mg by College MG tablet 23:11: mouth of 21 nightly as Medicin needed for e Sleep. alprazolam Yes .5mg Take 0.5 [place] kacy (XANAX) 0.5 7-31 mg by College MG tablet 23:11: mouth of 21 nightly as Medicin needed for e Sleep. [facility] Yes 5mg Take 5 mg Ba ylor MG TABS 5-25 by mouth. [place] 00:00: of 00 Medicin e [facility] Yes TAKE ONE [place] kacy MG TABS 5-25 (1) College 00:00: TABLET(S) of 00 BY MOUTH Medicin ONCE A e DAY. [facility] Yes 5mg Take 5 mg [facility] MG TABS 5-25 by mouth. [place] 00:00: of 00 Medicin e [facility] Yes 5mg Take 5 mg Ba ylor MG TABS 5-25 by mouth. College 00:00: of 00 Medicin e [facility] Yes TAKE ONE [place] kacy MG TABS 5-25 (1) College 00:00: TABLET(S) of 00 BY MOUTH Medicin ONCE A e DAY. [facility] Yes TAKE ONE [place] kacy MG TABS 5-25 (1) [place] 00:00: TABLET(S) of 00 BY MOUTH Medicin ONCE A e DAY. [facility] Yes 5mg Take 5 mg Ba ylor MG TABS 5-25 by mouth. [place] 00:00: 00 Medicin e amLODIPine 2019-0 Yes 2.5mg QD Take 2.5 Me thodi (NORVASC) 5 1-[address] mg tablet 09:52: mouth Hospita 05 daily. l evolocumab 2019-0 Yes 140mg Q14D Inject 140 [facility] (REPATHA 1-[address] SURECLICK) 09:52: the skin Hos jose 140 mg/mL 05 every 14 l pen (fourteen) injector days. injection ALPRAZolam 2019-0 Yes .5mg QD Take 0.5 [facility] (XANAX) 0.5 1-[address] MG tablet 09:52: mouth Hospita 05 nightly as l needed for anxiety. coenzyme 2019-0 Yes 100mg QD Take 100 Meth sabrina Q10 1-[address] (COQ-10) 09:52: mouth Hospita 100 mg 05 daily. l capsule coenzyme 2019-0 Yes 100mg QD Take 100 Meth sabrina Q10 1-[address] (COQ-10) 09:52: mouth Hospita 100 mg 05 daily. l capsule amLODIPine 2019-0 Yes 2.5mg QD Take 2.5 Me thodi (NORVASC) 5 1-[address] mg tablet 09:52: mouth Hospita 05 daily. l evolocumab 2019-0 Yes 140mg Q14D Inject 140 [facility] (REPATHA 1-[address] SURECLICK) 09:52: the skin Hos jose 140 mg/mL 05 every 14 l pen (fourteen) injector days. injection ALPRAZolam 2019-0 Yes .5mg QD Take 0.5 [facility] (XANAX) 0.5 1-[address] MG tablet 09:52: mouth Hospita 05 nightly as l needed for anxiety. Vital Signs Vital Name Observation Time Observation Value Comments Source HEIGHT 2019-12-17 157.5 cm 00:00:00 WEIGHT 2019-12-17 95.936 kg 00:00:00 Systolic blood 2021-11-03 127 mm[Hg] University of pressure 00:59:00 [facility] Diastolic blood 2021-11-03 84 mm[Hg] University o f pressure 00:59:00 [facility] Heart rate 2021-11-03 64 /min [facility] 00:59:00 [facility] Body temperature 2021-11-03 36.61 Jessica [facility] 00:59:00 [facility] Respiratory rate 2021-11-03 19 /min [facility] 00:59:00 [facility] Body weight 2021-11-03 97.07 kg [facility] 00:59:00 [facility] BMI 2021-11-03 39.14 kg/m2 [facility] 00:59:00 [facility] Oxygen saturation 2021-11-03 98 /min [facility] in Arterial blood 00:59:00 [facility] by Pulse oximetry [place] Systolic blood 2020-05-16 132 mm[Hg] [facility] pressure 18:27:00 of Medicine Diastolic blood 2020-05-16 96 mm[Hg] [facility] pressure 18:27:00 of Medicine Heart rate 2020-05-16 91 /min [facility] 18:27:00 of Medicine Body temperature 2020-05-16 36.94 Jessica [facility] Jocelyn ege 18:27:00 of Medicine Body height 2020-05-16 157.5 cm [facility] 18:27:00 of Medicine Body weight 2020-05-16 89.812 kg [facility] 18:27:00 of Medicine BMI 2020-05-16 36.21 kg/m2 [facility] 18:27:00 of Medicine Systolic blood 2020-05-16 132 mm[Hg] [employer] pressure 18:27:00 of Medicine Diastolic blood 2020-05-16 96 mm[Hg] [facility] pressure 18:27:00 of Medicine Heart rate 2020-05-16 91 /min [facility] 18:27:00 of Medicine Body temperature 2020-05-16 36.94 Jessica [facility] Jocelyn ege 18:27:00 of Medicine Body height [...] of Medicine Body temperature 2020-05-02 36.78 Jessica [facility] J[facility] ege 19:38:00 of Medicine Body height 2020-05-02 157.5 cm [facility] 19:38:00 of Medicine Body weight 2020-05-02 93.35 kg [facility] 19:38:00 of Medicine BMI 2020-05-02 37.64 kg/m2 [facility] 19:38:00 of Medicine Systolic blood 2020-05-02 118 mm[Hg] [employer] pressure 19:38:00 of Medicine Diastolic blood 2020-05-02 81 mm[Hg] [facility] pressure 19:38:00 of Medicine Heart rate 2020-05-02 80 /min [facility] 19:38:00 of Medicine Body temperature 2020-05-02 36.78 Jessica [facility] J[facility] ege 19:38:00 of Medicine Body height 2020-05-02 157.5 cm [facility] 19:38:00 of Medicine Body weight 2020-05-02 93.35 kg [facility] 19:38:00 of Medicine BMI 2020-05-02 37.64 kg/m2 [facility] 19:38:00 of Medicine HEIGHT 2019-12-17 157.5 cm 00:00:00 WEIGHT 2019-12-17 95.936 kg 00:00:00 Systolic blood 2020-04-18 142 mm[Hg] [employer] pressure 14:29:00 of Medicine Diastolic blood 2020-04-18 103 mm[Hg] [facility] pressure 14:29:00 of Medicine Heart rate 2020-04-18 87 /min [facility] 14:29:00 of Medicine Body temperature 2020-04-18 36.67 Jessica [facility] ege 14:29:00 of Medicine Body height 2020-04-18 157.5 cm [facility] 14:29:00 of Medicine Body weight 2020-04-18 96.798 kg [facility] 14:29:00 of Medicine BMI 2020-04-18 39.03 kg/m2 [facility] 14:29:00 of Medicine Systolic blood 2020-04-18 142 mm[Hg] [facility] pressure 14:29:00 of Medicine Diastolic blood 2020-04-18 103 mm[Hg] [facility] pressure 14:29:00 of Medicine Heart rate 2020-04-18 87 /min [facility] 14:29:00 of Medicine Body temperature 2020-04-18 36.67 Jessica [facility] J[facility] ege 14:29:00 of Medicine Body height 2020-04-18 157.5 cm [facility] 14:29:00 of Medicine Body weight 2020-04-18 96.798 kg [facility] 14:29:00 of Medicine BMI 2020-04-18 39.03 kg/m2 [facility] 14:29:00 of Medicine Heart rate 2019-12-02 85 /min [facility] 16:08:00 of Medicine Body temperature 2019-12-02 36.78 Jessica [facility] J[facility] ege 16:08:00 of Medicine Body height 2019-12-02 157.5 cm [facility] 16:08:00 of Medicine Body weight 2019-12-02 103.511 kg [facility] 16:08:00 of Medicine BMI 2019-12-02 41.74 kg/m2 [facility] 16:08:00 of Medicine Systolic blood 2019-12-02 147 mm[Hg] [employer] pressure 16:08:00 of Medicine Diastolic blood 2019-12-02 103 mm[Hg] [facility] pressure 16:08:00 of Medicine Heart rate 2019-12-02 85 /min [facility] 16:08:00 of Medicine Body temperature 2019-12-02 36.78 Jessica [facility] Jocelyn ege 16:08:00 of Medicine Body height 2019-12-02 157.5 cm [facility] 16:08:00 of Medicine Body weight 2019-12-02 103.511 kg [facility] 16:08:00 of Medicine BMI 2019-12-02 41.74 kg/m2 [facility] 16:08:00 of Medicine Systolic blood 2019-12-02 147 mm[Hg] [facility] pressure 16:08:00 of Medicine Diastolic blood 2019-12-02 103 mm[Hg] [facility] pressure 16:08:00 of Medicine Body [...] Systolic blood 2019-05-12 161 mm[Hg] Patient stated [facility]ocelyn ege pressure 18:22:00 that she rushed [...] of Medicine Body temperature 2019-05-12 36.83 Jessica [facility]ge 18:22:00 of Medicine Body height [...] Diastolic blood 2019-05-12 106 mm[Hg] Patient stated [facility] pressure 18:22:00 that she rushed of Medicine to get her, takes BP medication. Denies chest pain, SOB, dizzy.. Patient stated she feels fine Heart rate 2019-05-12 91 /min [facility] 18:22:00 of Medicine Body temperature 2019-05-12 36.83 [facility] ege 18:22:00 of Medicine Body height 2019-05-12 157.5 cm [facility] 18:22:00 of Medicine Body weight 2019-05-12 101.606 kg [facility] 18:22:00 of Medicine BMI 2019-05-12 40.97 kg/m2 [facility] 18:22:00 of Medicine Procedures Procedure Date / Time Performed Performing Clinician Sourc e POCT MOLECULAR FLU 2021-11-03 01:09:00 Ignacia Lugo [facility] POCT MOLECULAR STREP 2021-11-03 01:07:00 Ignacia Lugo [facility] VITAMIN B12 2019-12-02 17:22:00 Hemanth [facility] FERRITIN 2019-12-02 17:22:00 Hemanth [facility] HEMOGLOBIN A1C 2019-12-02 17:22:00 Hemanth [facility] VITAMIN B1 2019-12-02 17:22:00 Hemanth [facility] VITAMIN D 25 HYDROXY 2019-12-02 17:22:00 Bravo Perla [facility] VITAMIN A 2019-12-02 17:22:00 [facility]%SAT 2019-12-02 17:22:00 Hemanth [facility] Plan of Care Planned Activity Planned Date Details Comments Source Future Scheduled 2022-10-[address] [facility] Test 00:00:00 (12+) [code = Medical Center DEPRESSION SCREENING (12+)] Future Scheduled 2022-10-[address] [facility] Test 00:00:00 (12+) [code = Medical Center DEPRESSION SCREENING (12+)] Future Scheduled 2022-10-05 COVID-19 VACCINE (#1) [facility] 09:06:07 [code = COVID-19 Hospital VACCINE (#1)] Future Scheduled 2022-10-05 Screening for malignant [facility] Test 09:06:07 neoplasm of cervix [facility] (procedure) [code = 858409138] Future Scheduled 2022-10-05 BREAST CANCER SCREENING [facility] Test 09:06:07 [code = BREAST CANCER Hospit al SCREENING] Future Scheduled 2022-10-05 COLONOSCOPY SCREENING [facility] 09:06:07 [code = COLONOSCOPY Hospital SCREENING] Future Scheduled 2022-10-05 INFLUENZA VACCINE [code [facility] Test 09:06:07 = INFLUENZA VACCINE] [facility] Future Scheduled 2022-10-05 COVID-19 VACCINE (#1) [facility] 09:06:07 [code = COVID-19 Hospital VACCINE (#1)] Future Scheduled 2022-10-05 Screening for malignant [facility] Test 09:06:07 neoplasm of cervix Hospital (procedure) [code = 260984567] Future Scheduled 2022-10-05 BREAST CANCER SCREENING [facility] 09:06:07 [code = BREAST CANCER Hospit al SCREENING] Future Scheduled 2022-10-05 COLONOSCOPY SCREENING [facility] Test 09:06:07 [code = COLONOSCOPY Hospital SCREENING] Future Scheduled 2022-10-05 INFLUENZA VACCINE [code [facility] Test 09:06:07 = INFLUENZA VACCINE] [facility] Future Scheduled 2022-06-13 INFLUENZA VACCINE (#1) [facility] 00:[facility]00 [code = INFLUENZA Medical Ce nter VACCINE (#1)] Future Scheduled 2022-06-13 INFLUENZA VACCINE (#1) [facility] 00:00:00 [code = INFLUENZA Medical Ce nter VACCINE (#1)] Future Scheduled 2022-01-02 Lipid panel (procedure) [facility] Test 00:00:00 [code = [id number]] Medical Ce nter Future Scheduled 2022-01-02 Lipid panel (procedure) [facility] Test 00:00:00 [code = 91737160] Medical Ce nter Future Scheduled 2021-04-[address] [facility] Test 00:00:00 Counseling and Medical Cente r Screening (12+) [code = Tobacco Cessation Counseling and Screening (12+)] Future Scheduled 2021-04-[address] [facility] Test 00:00:00 Counseling and Medical Cente r Screening (12+) [code = Tobacco Cessation Counseling and Screening (12+)] Future Scheduled 1997 Screening for malignant [facility] Test 00:00:00 neoplasm of cervix Medical C enter (procedure) [code = 156844673] Future Scheduled 1997 Screening for malignant [facility] Test 00:00:00 neoplasm of cervix Medical C enter (procedure) [code = 272765891] Future Scheduled 1995 DTAP/TDAP/TD VACCINES [facility] 00:00:00 (1 - Tdap) [code = Medical C enter DTAP/TDAP/TD VACCINES (1 - Tdap)] Future Scheduled 1995 DTAP/TDAP/TD VACCINES [facility] 00:00:00 (1 - Tdap) [code = Medical C enter DTAP/TDAP/TD VACCINES (1 - Tdap)] Future Scheduled 1994 HEPATITIS C SCREENING [facility] 00:00:00 [code = HEPATITIS C Medical Center SCREENING] Future Scheduled 1994 HEPATITIS C [facility]CRE[facility]ING [facility] 00:00:00 [code = HEPATITIS C Medical Center SCREENING] Future Scheduled 1977-03-11 COVID-19 VACCINE (#1) [facility] 00:00:00 [code = COVID-[address] VACCINE (#1)] Future Scheduled 1977-03-11 COVID-19 VACCINE (#1) [facility] 00:00:00 [code = COVID-[address] VACCINE (#1)] Future Scheduled 1976 CT Colonography (combo) [facility] Test 00:00:00 [code = CT Colonography [facility] (combo)] Future Scheduled 1976 Screening for malignant [facility] Test 00:00:00 neoplasm of colon Medical Ce nter (procedure) [code = 472513051] Future Scheduled 1976 Screening for malignant [facility] Test 00:00:00 neoplasm of colon Medical Ce nter (procedure) [code = 891310102] Future Scheduled 1976 Screening for malignant [facility] Test 00:00:00 neoplasm of colon Medical Ce nter (procedure) [code = 520137368] Future Scheduled 1976 Screening for malignant [facility] Test 00:00:00 neoplasm of colon Medical Ce nter (procedure) [code = 837950206] Future Scheduled 1975 Sigmoidoscopy [code = [facility] Sigmoidoscopy] Medical Cente r Future Scheduled 1976 CT Colonography (combo) [facility] Test 00:00:00 [code = CT Colonography [facility] (combo)] Future Scheduled 1976 Screening for malignant [facility] Test 00:00:00 neoplasm of colon Medical Ce nter (procedure) [code = 157322789] Future Scheduled 1976 Screening for malignant [facility] Test 00:00:00 neoplasm of colon Medical Ce nter (procedure) [code = 126635043] Future Scheduled 1976 Screening for malignant [facility] Test 00:00:00 neoplasm of colon Medical Ce nter (procedure) [code = 782474823] Future Scheduled 1976 Screening for malignant [facility] Test 00:00:00 neoplasm of colon Medical Ce nter (procedure) [code = 289671344] Future Scheduled 1975 Sigmoidoscopy [code = [facility]] Medical Cent[facility] r Future Scheduled IRON, TIBC AND FERRITIN Ordered: [facility] Test PANEL [code = NOCPT] 12/02/2019 of Medi cine Future Scheduled VITAMIN B6 [code = [facility] Test 46016-4] of Medicine Future Scheduled MAMMOGRAM ANNUAL [code B [facility] Test = MAMMOGRAM ANNUAL] of Medic ine Future Scheduled TETANUS SHOT (ADULT) [employer] Test [code = TETANUS SHOT of Medi cine (ADULT)] Future Scheduled HIV SCREENING [code = [employer] Test HIV SCREENING] of Medicine Future Scheduled CERVICAL CANCER [facility] Test SCREENING 3 YEAR FOLLOW of M edicine UP [code = CERVICAL CANCER SCREENING 3 YEAR FOLLOW UP] Future Scheduled FLU VACCINE > 6 MONTHS [facility] [code = FLU VACCINE > 6 of M edicine MONTHS] Future Scheduled BMI FOLLOW UP PLAN [facility] Test [code = BMI FOLLOW UP of Med icine PLAN] Future Scheduled MAMMOGRAM ANNUAL [code B [facility] Test = MAMMOGRAM ANNUAL] of Medic ine Future Scheduled TETANUS SHOT (ADULT) [employer] Test [code = TETANUS SHOT of Medi cine (ADULT)] Future Scheduled HIV SCREENING [code = [employer] Test HIV SCREENING] of Medicine Future Scheduled CERVICAL CANCER [facility] ollege Test SCREENING 3 YEAR FOLLOW [...] Scheduled CBC W/O DIFF W PLT Ordered: [employer] Test [code = 6690-2] 05/02/2020 of Medicine Future Scheduled IRON, TIBC AND FERRITIN Ordered: [facility] Test PANEL [code = NOCPT] 05/02/2020 of Medi cine Future Scheduled MAMMOGRAM ANNUAL [code [employer] Test = MAMMOGRAM ANNUAL] of Medic ine Future Scheduled TETANUS SHOT (ADULT) [employer] Test [code = TETANUS SHOT of Medi cine (ADULT)] Future Scheduled HIV SCREENING [code = [employer] Test HIV SCREENING] of Medicine Future Scheduled CERVICAL CANCER [facility]lege Test SCREENING 3 YEAR FOLLOW [...] PLAN] Future Scheduled MAMMOGRAM ANNUAL [code [employer] Test = MAMMOGRAM ANNUAL] of Medic ine Future Scheduled TETANUS SHOT (ADULT) [employer] Test [code = TETANUS SHOT of Medi cine (ADULT)] Future Scheduled HIV SCREENING [code = [employer] Test HIV SCREENING] of Medicine Future Scheduled CERVICAL CANCER [facility] Test SCREENING 3 YEAR FOLLOW [...] icine PLAN] Future Scheduled COMPREHENSIVE METABOLIC Ordered: [facility] [employer] Test PANEL [code = 04460-7] 05/12/2019 of Me dicine Future Scheduled CBC W/AUTO DIFF WITH Ordered: [facility] Test PLATELETS [code = 05/12/2019 of Medicin e 34644-4] Future Scheduled IRON [code = 2498-4] Ordered: [employer] Test 05/12/2019 of Medicine Future Scheduled THYROID PROFILE (T3U - Ordered: B [facility] Test T4 - T7 - TSH) [code = 05/12/2019 of Me dicine NOCPT] Future Scheduled FERRITIN [code = Ordered: [facility] Test 74737-1] 05/12/2019 of Medicine Future Scheduled FOLATE [code = 2284-8] Ordered: [facility] Test 05/12/2019 of Medicine Future Scheduled HEMOGLOBIN A1C [code = Ordered: [facility] College Test 4548-4] 05/12/2019 of Medicine Future Scheduled PROTIME & PTT [code = Ordered: [facility] Test NOCPT] 05/12/2019 of Medicine Future Scheduled URINALYSIS, MACROSCOPIC Ordered: [facility] Test [code = NOCPT] 05/12/2019 of Medicine Future Scheduled VITAMIN A [code = Ordered: [facility] Test 2923-1] 05/12/2019 of Medicine Future Scheduled VITAMIN B1 [code = Ordered: [facility] College Test 09590-9] 05/12/2019 of Medicine Future Scheduled VITAMIN B12 [code = Ordered: [facility] Test 2132-9] 05/12/2019 of Medicine Future Scheduled VITAMIN B6 [code = Ordered: [facility] Test 16347-9] 05/12/2019 of Medicine Future Scheduled VITAMIN D 25 HYDROXY Ordered: [facility] Test [code = 1989-3] 05/12/2019 of Medicine Future Scheduled LIPID PANEL [code = Ordered: [facility] [place] Test 78497-6] 05/12/2019 of Medicine Future Scheduled MAMMOGRAM ANNUAL [code B [facility] Test = MAMMOGRAM ANNUAL] of Medic ine Future Scheduled TETANUS SHOT (ADULT) [facility] Test [code = TETANUS SHOT of Medi cine (ADULT)] Future Scheduled BMI FOLLOW UP PLAN [facility] Test [code = BMI FOLLOW UP of Med icine PLAN] Future Scheduled HIV SCREENING [code = [facility] Test HIV SCREENING] of Medicine Future Scheduled CERVICAL CANCER [facility] Test SCREENING 3 YEAR FOLLOW of M edicine UP [code = CERVICAL CANCER SCREENING 3 YEAR FOLLOW UP] Future Scheduled FLU VACCINE > 6 MONTHS B [facility] Test [code = FLU VACCINE > 6 of M edicine MONTHS] Future Scheduled MAMMOGRAM ANNUAL [code B [facility] Test = MAMMOGRAM ANNUAL] of Medic ine Future Scheduled TETANUS SHOT (ADULT) [employer] Test [code = TETANUS SHOT of Medi cine (ADULT)] Future Scheduled BMI FOLLOW UP PLAN [employer] Test [code = BMI FOLLOW UP of Med icine PLAN] Future Scheduled HIV SCREENING [code = [employer] Test HIV SCREENING] of Medicine Future Scheduled CERVICAL CANCER [facility] Test SCREENING 3 YEAR FOLLOW of M edicine UP [code = CERVICAL CANCER SCREENING 3 YEAR FOLLOW UP] Future Scheduled FLU VACCINE > 6 MONTHS [employer] Test [code = FLU VACCINE > 6 of M edicine MONTHS] Future Scheduled MAMMOGRAM ANNUAL [code [employer] Test = MAMMOGRAM ANNUAL] of Medic ine Future Scheduled TETANUS SHOT (ADULT) [employer] Test [code = TETANUS SHOT of Medi cine (ADULT)] Future Scheduled BMI FOLLOW UP PLAN [employer] Test [code = BMI FOLLOW UP of Med icine PLAN] Future Scheduled HIV SCREENING [code = [employer] Test HIV SCREENING] of Medicine Future Scheduled CERVICAL CANCER [facility] Test SCREENING 3 YEAR FOLLOW of M edicine UP [code = CERVICAL CANCER SCREENING 3 YEAR FOLLOW UP] Future Scheduled FLU VACCINE > 6 MONTHS [employer] Test [code = FLU VACCINE > 6 of M edicine MONTHS] Future Scheduled FL UPPER GI W/SMALL 1 Occurrences [employer] Test BOWEL FOLLOW THRU [code starting of M edicine = 45889] 05/16/2020 until 11/16/2021 Future Scheduled FL ESOPHAGRAM COMPLETE 1 Occurrences [employer] Test [code = 05159-2] starting of Medicine 05/12/2019 until 11/12/2020 Future Scheduled ELECTROCARDIOGRAM 1 Occurrences [employer] Test COMPLETE [code = 03138] starting of M edicine 05/12/2019 until 05/12/2020 Future Scheduled XR CHEST PA AND LATERAL 1 Occurrences [employer] Test [code = 74255-4] starting of Medicine 05/12/2019 until 05/11/2020 Future Scheduled ESOPHAGEAL 1 Occ[facility]rences [facility] Test MANOMETRY/MOTILITY starting of Medici ne [code = NOCPT] 05/12/2019 until 11/11/2019 Encounters Start End Encounter Admission Attending Care Care Encounter Source Date/Time Date/Time Type Type Clinicians Facility Department ID 2021-07-17 Outpatient CORNELIA KNAPP [facility] Surgery [id number] [facility] 21:58:59 BRAVO JAMES 2022-09-04 2022-09-04 Outpatient FELICITA Hendrickson [id number] [facility] 12:00:00 12:00:00 Ciarra Narvaez [facility] [place] 2022-04-23 2022-04-23 Outpatient DICEUNICE [facility]DA [facility] 09:51:00 09:51:00 ARTEMIO [facility]aus [facility] 2021-11-04 2021-11-04 Letter TIMOTHY Tapia 1.2.840.114 [id number] [facility] 00:00:00 00:00:00 (Out) Qian GARCIA 350.1.13.10 it y of [facility] 4.2.7.2.686 [place] as [id number] [address] 2021-11-02 2021-11-02 Stephan Viera Akiko [facility] 1.2.840.114 [id number] Univers 19:00:00 19:05:25 [facility] 350.1.13.10 ity [facility] 4.2.7.2.686 [place] as BRENNA?BLEA [id number] [address] MEDICAL OFFICE BUILDING 2021-11-02 2021-11-02 [facility] [id number] [facility] 19:00:00 19:05:25 [facility] 2021-11-02 2021-11-02 Outpatient [facility] [id number] Univers 18:45:00 18:45:00 [facility] 2021-10-12 2021-10-12 Outpatient R [facility] [id number] Univers 10:00:00 09:48:58 [facility] 2020-05-16 2020-05-16 Office [place] [facility] 1.2.840.114 [id number] 13:19:09 15:20:25 Visit Bravo james AMBULATOR 350.1.13.21 G Y 0.2.7.2.686 [id number] 800 2020-05-16 2020-05-16 Office Plasencia-oRss [facility] 1.2.840.114 [id number] [facility] 13:19:09 15:20:25 Visit Abdias jamesiet AMBULATOR 350.1.13.21 College G Y 0.2.7.2.686 of [id number] [facility] 800 e 2020-05-02 2020-05-02 Office EMILY Queen 1.2.840.114 [id number] 13:56:12 14:26:12 Visit Vimbai A AMBULATOR 350.1.13.21 Y 0.2.7.2.686 [id number] [facility] 2020-05-02 2020-05-02 Office EMILY Queen 1.2.840.[id number] [place] [address] 13:56:12 14:26:12 Visit Vimbai A AMBULATOR 350.1.13.21 College Y 0.2.7.2.686 of [id number] [facility] 800 e 2020-04-18 2020-04-18 Office Bobheather BC 1.2.840.114 [id number] 09:19:54 15:17:15 Visit es, Bravo AMBULATOR 350.1.13.21 G Y 0.2.7.2.686 [id number] [facility] 2020-04-18 2020-04-18 Office Bobheather [facility] 1.2.840.[id number] [place] [address] 09:19:54 15:17:15 Visit es, Bravo AMBULATOR 350.1.13.21 College G Y 0.2.7.2.686 of [id number] [facility] 800 e 2020-04-18 2020-04-18 Outpatient ALLYN [facility] [id number] [facility] 00:00:00 00:00:00 ES, BRAOV 2020-04-18 2020-04-18 Outpatient [facility]H [facility] [id number] 5-2 [facility] 00:00:00 00:00:00 [id number] 2020-02-03 2020-02-03 Outpatient [facility] [id number] 5-2 [facility] 00:00:00 00:00:00 [id number] 2019-12-02 2019-12-02 Office Allyn BC 1.2.840.114 [id number] 10:01:30 12:40:44 Visit es, Bravo AMBULATOR 350.1.13.21 G Y 0.2.7.2.686 [id number] [facility] 2019-12-02 2019-12-02 Office Allyn EMILY 1.2.840.114 [id number] [facility] 10:01:30 12:40:44 Visit Bravo james AMBULATOR 350.1.13.21 College G Y 0.2.7.2.686 of [id number] [facility] 800 e 2019-07-16 2019-07-16 Office EMILY Tirado 1.2.840.114 [id number] 13:41:03 15:14:00 Visit Madison AMBULATOR 350.1.13.21 Y 0.2.7.2.686 [id number] [facility] 2019-07-16 2019-07-16 Office EMILY Tirado 1.2.840.[id number] [place] [address] 13:41:03 15:14:00 Visit Madison AMBULATOR 350.1.13.21 College Y 0.2.7.2.686 of [id number] [facility] 800 e 2019-06-16 2019-06-16 Office EMILY Tirado 1.2.840.114 [id number] 10:26:53 13:08:19 Visit [place] AMBULATOR 350.1.13.21 Y 0.2.7.2.686 [id number] [facility] 2019-06-16 2019-06-16 Office EMILY Tirado 1.2.840.[id number] [place] [address] 10:26:53 13:08:19 Visit [place] AMBULATOR 350.1.13.21 College Y 0.2.7.2.686 of [id number] [facility] 800 e 2019-05-12 2019-05-12 Office EMILY Fry 1.2.840.114 [id number] 12:57:08 15:12:24 Visit Darian AMBULATOR 350.1.13.21 Y 0.2.7.2.686 [id number] [facility] 2019-05-12 2019-05-12 Office EMILY Fry 1.2.840.114 [id number] [facility] 12:57:08 15:12:24 Visit Darian AMBULATOR 350.1.13.21 College Y 0.2.7.2.686 of [id number] [facility] mo 800 e Results Test Description Test Time Test Comments Results Result Comments Source POCT MOLECULAR FLU 2021-11-03 01:20:49 Test Item Value Reference Range Interpretation Comme nts POCT Molecular FluA (test code = 88078-5) Negative Negative POCT Molecular FluB (test code = 25868-5) Negative Negative Lab Interpretation (test code = 72366-4) Normal [facility] MOLECULAR [id number] 01:15:21 Test Item Value Reference Range Interpretation Comments POCT Molecular Strep (test code = Negative Negative 79577-7) Lab Interpretation (test code = Normal 17507-6) [facility] [id number] 11:14:00 Test Item Value Reference Range Interpretation Comments POC-GLUCOSE METER 86 mg/dL 70-110 : [facility] (BEAKER) (test code = [facility]38[facility] 26083: Quarry Extraction Worker/Techni ahsish ID = [id number] for SABAS CHAVEZ BASIC METABOLIC [id number] 05:47:00 Test Item Value Reference Range Interpretation [...] S NOT APPLICABLE FOR DIALYSIS PATIEN TS. [employer]ar[employer] Ext[employer] Worker ID - PIAYA LPOCT-GLUCOSE [id number] 05:44:00 Test Item Value Reference Range Interpretation Comments POC-GLUCOSE METER 97 mg/dL 70-110 : TESTED A T [facility] 6720 (BEAKER) (test code = [place], 1538) 70463: Quarry Extraction Worker/Techni ashish ID = [id number] for POLO OBRIEN CBC W/PLT COUNT & AUTO [id number] 05:31:00 Test Item Value Reference Range Interpretation [...] PERCENT (BEAKER) (test code = 2801) POCT-GLUCOSE [id number] 00:07:00 Test Item Value Reference Range Interpretation Comments POC-GLUCOSE METER 150 mg/dL 70-110 H : TESTED A T [facility] 6720 (BEAKER) (test code = [employer] [facility], 1538) 25012: Quarry Extraction Worker/Techni ashish ID = [id number] for POLO CHAVEZ POCT-GLUCOSE [id number] 17:50:00 Test Item Value Reference Range Interpretation Comments POC-GLUCOSE METER 161 mg/dL 70-110 H : TESTED A T [facility] 6720 (BEAKER) (test code = [place], 1538) 39105: Quarry Extraction Worker/Techni ashish ID = [id number] for Ramirez Tucker TISSUE [id number] 16:24:00Surgical Pathology Report Case: [id number] Authorizing Provider: Bravo Perla Collected: 04/26/2020 10:59 AM MD Darlene Ordering Location: [facility] PERIOPERATIVE Received: 04/26/2020 02:14 PM SERVICES Pathologist: Lea Santillan MD Specimen: Explant, Lap Gastric Band for I and D A. GASTRIC, GASTRIC BAND, REMOVAL: - GASTRIC BAND IDENTIFIED (GROSS ONLY) Signing Pathologist Direct Phone Line: [phone] signed by Lea Santillan MD on 04/26/2020 at 4:24 [id number] ob esityOther hyperlipidemia Obstructive sleep apnea Heart [...] The Port-A-Cath is inscribed with "lot number: [id number] part number: 3360-02 full range: 0-10 cc." A gross photograph is taken. No sections are submitted-gross only.KEVIN Sigala, PA (ASCP)N/[id number] 12:53:00 Test Item Value Reference Range Interpretation Comments SODIUM (BEAKER) (test code = 381) 137 meq/L 136-145 POTASSIUM (BEAKER) (test code = 4.2 meq/L 3.5-5.1 379) CHLORIDE (BEAKER) (test code = 382) 103 meq/L 98-107 CO2 (BEAKER) (test code = 355) 26 meq/L 22-29 [employer] Ext[employer] Worker ID - GARTH LBUN AND CREATININE [id number] 12:53:00 Test Item Value Reference Range Interpretation [...] S NOT APPLICABLE FOR DIALYSIS PATIEN TS. [employer]ar[employer] Extraction Worker ID - GARTH [id number] 12:36:00 Test Item Value Reference Range Interpretation Comments HEMOGLOBIN (BEAKER) (test code = 13.9 GM/DL 11.2-15.7 410) [employer] Ext[employer] Worker ID - 6000VITAMIN [id number] 23:47:24 Test Item Value Reference Range Interpretation Comments VITAMIN B-1 138 nmol/L 64-201 This test was developed and (test code = its performance 04467-6) characteristics determined by [facility] ([facility]). [...] SO [facility] [address], [address], [place] [address] [place], [place] [address] CLIA NO: [id number] Unle ss Otherwise Indicated, All Testing Performed At: [facility], [address] [place] [address] Laboratory Dire ctor: Jarod Qiuntana M.D. CLIA Number [id number] [place]. [id number] [facility] CampusV[facility] [id number] 01:54:35 Test Item Value Reference Range Interpretation Comments VITAMIN A LEVEL (test 0.40 mg/L 0.3-1.2 code = 2923-1) RETINYL PALMITATE 0.02 mg/L 0-0.1 (test code = 40251-3) INTERPRETATION STNRISK Normal Test developed and (test code = 99121-2) charac teristics determined by A [facility]. S ee Compliance Stat ement B: [facility]/ CS TESTING PERFORM ED AT [facility], I [place] [address], [place] [address] [place]. [id number] CL IA NO. [id number] Unle ss Otherwise Indic ated, All Testing Per formed At: [facility], [address] [place] [address] Laborator y Director: Jarod Quintana M.D. CLIA Number [id number] [place]. [id number] [facility] D 25 [id number] 11:56:15 Test Item Value Reference Range Interpretation Comments VITAMIN D 25-HYDROXY SEE BELOW NG/ML L NOT E: (test code = 1989-) 25-HYDR OXYVITAMIN D ASSAY INCLUDES 25-HYDROXYVITAM IN [...] e Indicated, All Testing Performed At: [facility], [address] [place] [address] [facility] Director: Jarod Quintana M.D. CLIA Number [id number] [place]. [address]-01 Lab Interpretation Abnormal (test code = 51801-8) [facility] CampusIRON+TIBC+%[id number] 10:20:21 Test Item Value Reference Range Interpretation Comments IRON (test code = See_Comment [Automate d message] 2498-4) The system [employer] generated this result transmitted ref erence range: 37 - 145 UG/DL. The reference r rehana was not used to interpret this result as normal/abnor mal. UIBC (test code = See_Comment [Automate d message] 2501-5) The system [employer] generated this result transmitted ref erence range: 112 - 34 7 UG/DL. The refe rence range was not u sed to interpret this result as normal/abnor mal. TIBC (test code = See_Comment [Automate d message] 36289-6) The system [employer] generated this result transmitted ref erence range: 250 - 45 0 UG/DL. The refe rence range was not u sed to interpret this result as normal/abnor mal. IRON SATURATION % (test 14 % 20-50 L Unl ess Otherwise code = 2502-3) Indicated, Al l Testing Performed At: [facility], [address] [place] [address] Laborator y Director: Jarod Quintana M.D. CLIA Number [id number] [place]. [address]98 Lab Interpretation Abnormal (test code = 12514-2) [facility] [id number] 10:20:02 Test Item Value Reference Range Interpretation Comments VITAMIN B-12 (test 533 PG/ML 200-950 Unless O therwise code = 2132-9) Indicated, Al l Testing Performed At: [facility], [address] [place] [address] Laborator y Director: Jarod Quintana M.D. CLIA Number [id number] [place]. [id number] [facility] CampusFERRITIN2020-02-21 10:20:02 Test Item Value Reference Range Interpretation Comments FERRITIN (test code = See_Comment H Unles s Otherwise 10113-7) Indicated, All Testing Perform ed At: Clinical Pathol ogy [facility], [address] [place] [address] Laborator y Director: Jarod Quintana M.D. CLIA Number [id number] [place]. 84[address]-23 [Autom ated message] The sy stem which generated this result transmit aide reference range : 13 - 200 NG/ML. The reference range was not used to int erpret this result as normal/abnormal . Lab Interpretation (test Abnormal code = 64408-8) [facility] CampusHEMOGLOBIN [id number] 08:03:34 Test Item Value Reference Range Interpretation Comments HEMOGLOBIN A1C (test 5.5 % 4.2-5.6 Unless Otherwise code = 4548-4) Indicated, Al l Testing Performed At: [facility] atories, [address] [place] [address] Laborator y Director: Jarod Quintana M.D. CLIA Number [id number] [place]. [address]-00 [facility] CampusRAD, CHEST, 2 [id number] 15:35:00Reason for Exam:->bariatric surgery status; abdominal pain,LUQ, Gastroesophageal reflux disease,esophagitis presence not specificied, pre-operative clearanceFINAL REPORT History provided: Bariatric surgery, abdominal pain CHEST PA AND LATERAL COMPARISON STUDY: 01/01/2019 Heart size normal. Dual lead left subclavian ICD. Lungs clear and vascularity normal. Signed: Patric Tobar MDReport Verified Date/Time: 08/26/2019 15:35:48 Reading Location: [facility] Diagnostic Imaging Reading Room - [facility] 1.310.12 TISSUE [id number] 09:50:00Surgical Pathology Report Case: [id number] Authorizing Provider: Darian Fry MD Collected: 07/23/2019 0722 Ordering Location: [facility] Endoscopy Received: 07/23/2019 1333 Services [...] DYSPLASIA, MALIGNANCY Signing Pathologist Direct Phone Line: [phone] nically signed by Lea Santillan MD on 07/27/2019 at 9:50 [id number]. Biopsy gastric, description rule out H. Pylori. [...] the test tissue. These control slides run alongsideof the patients sample show appropriate staining. Internal positive and negative controls when available are evaluated Immunohistochemistry technical testing was performed at [facility] Pathology Laboratory where it was developed and [...] to perform high complexity clinical laboratory testing.HEMOGLOBIN [id number] 12:55:00 Test Item Value Reference Range Interpretation Comments HEMOGLOBIN A1C (BEAKER) (test code = 4.8 % 4.3-6.1 368) LIPID [id number] 08:01:00 Test Item Value Reference Range Interpretation [...] 130-159 High 160-189 Very High >=190COMPREHENSIVE METABOLIC [id number] 08:01:00 Test Item Value Reference Range Interpretation [...] 347) EGFR (BEAKER) (test 90 mL/min/1.73 ESTIMA ADIE GFR IS code = 1092) sq m NOT ACCURATE CREATININE CLEARANCE IN PREDICTING GLOMERULAR FILTRATION RATE . ESTIMATED GFR I S NOT APPLICABLE FOR DIALYSIS PATIEN TS. TSH/FREE T4 IF [id number] 06:11:00 Test Item Value Reference Range Interpretation Comments THYROID STIMULATING HORMONE 2.58 uIU/mL 0.35-4.94 (BEAKER) (test code = 772) VITAMIN B12 AND [id number] 06:11:00 Test Item Value Reference Range Interpretation [...] 0-0 (BEAKER) (test code = 413) URINALYSIS [id number] 02:49:00 Test Item Value Reference Range Interpretation Comments RBC UA (BEAKER) (test code = 519) < /HPF WBC UA (BEAKER) (test code = 520) 1 /HPF MUCUS (BEAKER) (test code = 1574) Many SQUAMOUS EPITHELIAL (BEAKER) (test 4 /HPF code = 516) URINALYSIS WITH MICROSCOPIC IF [id number] 02:46:00 Test Item Value Reference Range Interpretation [...] pg/mL 0-100 (test code = 700) TROPONIN [id number] 15:40:00 Test Item Value Reference Range Interpretation [...] acute neurological disease, and persistent tachyarrhythmia.BASIC METABOLIC [id number] 15:39:00 Test Item Value Reference Range Interpretation [...] m DATA TO CALCULA TE ESTIMATED GFR. [id number] 15:33:00 Test Item Value Reference Range Interpretation Comments MAGNESIUM (BEAKER) (test code = 2.0 mg/dL 1.6-2.6 627) RAD, CHEST, 1 VIEW, NON [id number] 15:29:00Reason for exam:->chest painIs the patient ?->UnknownFINAL REPORT TECHNIQUE: Frontal chest radiograph dated 01/01/2019. CLINICAL HISTORY: Chest pain COMPARISON STUDY: None IMPRESSION:Left-sided, dual-chamber defibrillator is in place.No pleural effusion or pneumothorax. Cardiomediastinal silhouette is normal in size. No pulmonary edema. No fracture. Signed: Bg Zamudoieport Verified Date/Time: 01/01/2019 15:29:08 ReadingLocation: [facility] Radiology Reading Room Electronically signed by: BG ZAMUDIO MD on 01/01 03:29 [id number]/[id number] 15:23:00 Test Item Value Reference Range Interpretation [...] for patients with mechanical heart valves. SCREEN, [id number] 15:23:00 Test Item Value Reference Range Interpretation Comments TEST URINE (BEAKER) (test Negative code = 583) CBC W/PLT COUNT & AUTO [id number] 15:15:00 Test Item Value Reference Range Interpretation [...] (BEAKER) (test code = 2801) CT, BRAIN/STROKE [id number] 14:33:00Reason for exam:->NUMBNESSReason for exam:->HEADACHEIs the patient [...] MDReport Verified Date/Time: 01/01/2019 14:33:00 Reading Location: [facility] Reading [facility]
[2023-01-03 16:36] LABS: Absolute Lymphocytes (CBC) 1.4 K/uL (0.7-4.9); Lymphocytes % 18.3 % (15.3-44.8); MCV 81.5 fL (80-100); MPV 8.1 fL (7.6-11.3); RBC Red Blood Cell Count 4.78 M/uL (3.86-4.86)
[2023-01-03 16:50] LABS: Albumin 3.9 g/dL (3.4-5.0); Bilirubin Total 0.3 mg/dL (0.2-1.0); Magnesium 2.1 mg/dL (1.6-2.4); Potassium 3.7 mEq/L (3.5-5.1); Protein, Total 8.3 g/dL (6.4-8.2); Troponin High Sensitivity 4.9 pg/mL (<58.9)
--- NOTE | 2023-01-03 17:08 | RAD REPORT ---
EXAM DESCRIPTION: George Single View01/03/2023 4:58 pm CLINICAL HISTORY: Chest pain COMPARISON: November 2022 FINDINGS: The lungs appear clear of acute infiltrate. The heart is normal size. Pacemaker leads in place IMPRESSION: No acute abnormalities displayed
--- NOTE | 2023-01-03 18:59 | P.HP ---
Certification for Inpatient Patient admitted to: Observation With expected LOS: <2 Midnights Patient will require the following post-hospital care: None Practitioner: I am a practitioner with admitting privileges, knowledge of patient current condition, hospital course, and medical plan of care. Services: Services provided to patient in accordance with Admission requirements found in Title 42 Section 412.3 of the Code of Federal Regulations Patient History Date of Service: 01/03/23 Primary Care Provider: Giovanni Reason for admission: Chest Pain History of Present Illness: Patient is a 47 year old female with past medical history of hypertension, hyperlipidemia, GERD, depression/anxiety, fatty liver, prolonged QT syndrome wi th pacemaker/defibrillator who presented to the emergency department with complaints of chest pain and near syncope. She states that she has been experiencing "chest heaviness" on and off for 1 month now, feels like she cannot take a deep breath. No significant lab abnormalities, troponin within normal limits. Chest xray negative. EKG without any acute changes. Chest pain did improve after nitro. Vital signs have been stable. She received aspirin in the ED. ED provider wishes to admit patient for observation, for ACS rule out. Allergies ketorolac Allergy (Verified 10/23/18 21:46) Hives/Rash, SOB morphine Allergy (Verified 10/23/18 21:46) Shortness of breath Home medications list reviewed: Yes Home Medications: Evolocumab [Repatha Syringe] 1 dose SQ SEECOM 08/23/18 Amlodipine Besylate [Norvasc] 2.5 mg PO DAILY 10/23/18 Alprazolam [Xanax Xr] 0.5 mg DAILY 09/09/21 Nebivolol HCl [Bystolic] 5 mg BID 09/09/21 Pantoprazole Sodium [Protonix] 40 mg DAILY 09/09/21 - Past Medical/Surgical History Diabetic: No -: Hypertension -: Hyperlipidemia -: GERD -: Diverticulosis -: Depression with anxiety -: Prolonged QT syndrome -: Obesity -: Fatty liver -: Vitamin-D deficiency -: chronic pancreatitis -: Hysterectomy-2013 -: 2x A-Anirrje-2509/2011 -: Carpal Tunnel-2000 -: Gall bladder-2005 -: Lap Band-2011 Psychosocial/ Personal History: She is . Has 3 children. 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 - Family History Mother -: Heart disease, Hypertension, Diabetes, Stroke, Other (see notes) Notes: High cholesterol Father -: Heart disease, Hypertension, Diabetes Brother -: Hypertension Notes: Liver Cirrhosis Sister -: Stroke Notes: High BP, Mchenry Leukemia - Social History Smoking Status: Never smoker Alcohol use: No CD- Drugs: No Caffeine use: Yes Place of Residence: Home Review of Systems Respiratory: Shortness of Breath Cardiovascular: Chest Pain Physical Examination - Vital Signs Temperature: 97.7 F Blood Pressure: 123/77 Pulse: 62 Respirations: 18 Pulse Ox (%): 100 - Physical Exam General: Alert, In no apparent distress HEENT: Atraumatic, EOMI, Sclerae nonicteric Neck: Supple, 2+ carotid pulse no bruit Respiratory: Clear to auscultation bilaterally, Normal air movement Cardiovascular: Regular rate/rhythm, Normal S1 S2 Gastrointestinal: Normal bowel sounds, No tenderness Musculoskeletal: No tenderness Integumentary: No rashes Neurological: Normal speech, Normal affect - Studies Laboratory Data (last 24 hrs) 01/03/23 16:16: Sodium 137, Potassium 3.7, BUN 13, Creatinine 0.83, Glucose 136 H, Magnesium 2.1, Total Bilirubin 0.3, AST 57 H, ALT 85 H, Alkaline Phosphatase 163 H 01/03/23 16:16: WBC 7.90, Hgb 13.0, Hct 39.0, Plt Count 228 Assessment and Plan - Problems (Diagnosis) (1) Chest pain Current Visit: Yes Status: Acute Qualifiers: Chest pain type: unspecified Qualified Code(s): R07.9 - Chest pain, unspecified (2) GERD (gastroesophageal reflux disease) Current Visit: Yes Status: Chronic Qualifiers: Esophagitis presence: esophagitis presence not specified Qualified Code(s): K21.9 - Gastro-esophageal reflux disease without esophagitis (3) Hyperlipidemia Current Visit: Yes Status: Chronic Qualifiers: Hyperlipidemia type: unspecified Qualified Code(s): E78.5 - Hyperlipidemia, unspecified (4) Hypertension Current Visit: Yes Status: Chronic Qualifiers: Hypertension type: primary hypertension Qualified Code(s): I10 - Essential (primary) hypertension (5) Prolonged QT syndrome Current Visit: Yes Status: Chronic - Plan Patient is admitted for observation, for ACS rule out. Low suspicion for PE, Wells Score 0. Initial troponin negative, trend. Monitor on telemetry. Cardiology consulted. Echo ordered. Patient has appointment to see cardiology on Friday for echo and stress test. Aspirin and atorvastatin daily. Monitor and replete electrolytes per protocol. Reconcile and continue home medications. Lovenox for VTE prophylaxis. Full code. Discharge Plan: Home Plan to discharge in: 24 Hours - Advance Directives Does patient have a Living Will: No Does patient have a Durable POA for Healthcare: No - Code Status/Comfort Care Code Status Assessed: Yes Code Status: Full Code Physician Review: Patient Assessed, Agree with Above Assessment and Plan Critical Care: No Time Spent Managing Pts Care (In Minutes): 50
--- NOTE | 2023-01-03 21:21 | EDPHYS ---
Physician Documentation [facility] Name: Vanessa Gonzalez Age: 47 yrs Sex: Female : 1975 Arrival Date: 01/03/2023 Time: 15:44 Bed 19 Private MD: Seng Davilah ED Physician Fred Dutta HPI: 01/03 16:38 This 47 yrs old Female presents to ER via Ambulatory with complaints of Chest rt Pain. 16:38 Patient with pacemaker fibrillator for prolonged QT presents to the ED with an acute rt onset of chest pain that occurred at work just prior to arrival. Patient became nauseated and near syncopal at that time. States that the symptoms have improved, however, she continues to have chest pain. She has had similar symptoms intermittently, scheduled to have a stress test next week. Denies other acute complaints at this time, symptoms are moderate in severity, no other aggravating or alleviating factors.. 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 - Family history:: not pertinent. - Social history:: Smoking status: unknown. ROS: 16:38 Constitutional: Negative for fever, chills, and weight loss, Respiratory: Negative for rt shortness of breath, cough, wheezing, and pleuritic chest pain, Abdomen/GI: Negative for abdominal pain, nausea, vomiting, diarrhea, and constipation, MS/Extremity: Negative for injury and deformity, Skin: Negative for injury, rash, and discoloration, Psych: Negative for depression, anxiety, suicide ideation, homicidal ideation, and hallucinations. 16:38 Cardiovascular: Positive for chest pain, Negative for edema. 16:38 Neuro: Positive for near syncope, Negative for syncope. Exam: 16:38 Constitutional: This is a well developed, well nourished patient who is awake, alert, rt and in no acute distress. Head/Face: Normocephalic, atraumatic. Chest/axilla: Normal chest wall appearance and motion. Nontender with no deformity. No lesions are appreciated. Cardiovascular: Regular rate and rhythm with a normal S1 and S2. No gallops, murmurs, or rubs. Normal PMI, no JVD. No pulse deficits. Respiratory: Lungs have equal breath sounds bilaterally, clear to auscultation and percussion. No rales, rhonchi or wheezes noted. No increased work of breathing, no retractions or nasal flaring. Abdomen/GI: Soft, non-tender, with normal bowel sounds. No distension or tympany. No guarding or rebound. No evidence of tenderness throughout. Skin: Warm, dry with normal turgor. Normal color with no rashes, no lesions, and no evidence of cellulitis. MS/ Extremity: Pulses equal, no cyanosis. Neurovascular intact. Full, normal range of motion. Neuro: Awake and alert, GCS 15, oriented to person, place, time, and situation. Cranial nerves II-XII grossly intact. Motor strength 5/5 in all extremities. Sensory grossly intact. Cerebellar exam normal. Normal gait. Psych: Awake, alert, with orientation to person, place and time. Behavior, mood, and affect are within normal limits. 16:38 ECG was reviewed by the Attending Physician. Vital Signs: 15:50 BP 168 / 117; Pulse 85; Resp 16; Temp 97.7(TE); Pulse Ox 99% on R/A; Weight 103.87 kg; hb Height 5 ft. 2 in. ; Pain 4/10; 16:56 BP 123 / 77; Pulse 62; Resp 18; Pulse Ox 100% on R/A; kr3 15:50 Body Mass Index 41.88 (103.87 kg, 157.48 cm) hb 15:50 Pain Scale: Adult hb MDM: 15:56 Patient medically screened. rt 18:43 Differential diagnosis: abnormal EKG, acute myocardial infarction, pneumonia, rt pneumothorax, pulmonary embolus, stable angina. HEART Score: History: Highly Suspicious (2), ECG: Non specific repolarization disturbance / LBTB / PM (1), Age: > 45 and < 65 years (1), Risk Factors: 1 or 2 risk factors (1), Troponin: < or = 1 x Normal Limit (0), Total Score = 5. The patient was given aspirin in the Emergency Department. Data reviewed: vital signs, nurses notes, lab test result(s), EKG, radiologic studies. Consideration of Admission/Observation Patient was admitted/placed on observation. Management of patient was discussed with the following: Hospitalist: Agrees to admit. Management of patient was discussed with the following: Mold Puller: Discussed with braided rug maker, recommends admission. I considered the following discharge prescriptions or medication management in the emergency department Medications were administered in the Emergency Department. See MAR. Test considered but Not performed: CT: No suspicion for pulmonary embolism, CT angiogram not indicated. Care significantly affected by the following chronic conditions: Hypertension hyperlipidemia. Counseling: I had a detailed discussion with the patient and/or guardian regarding: the historical points, exam findings, and any diagnostic results supporting the discharge/admit diagnosis, lab results, radiology results, the need for further work-up and treatment in the hospital. Response to treatment: the patient's symptoms have mildly improved after treatment. 01/03 15:57 Order name: CBC with Diff; Complete Time: 16:56 rt 01/03 15:57 Order name: CMP; Complete Time: 16:56 rt 01/03 15:57 Order name: Troponin High Sensitivity; Complete Time: 16:56 rt 01/03 15:57 Order name: BNP; Complete Time: 16:56 rt 01/03 15:57 Order name: Magnesium; Complete Time: 16:56 rt 01/03 16:19 Order name: Chest Single View XRAY; Complete Time: 19:45 rt 01/03 15:57 Order name: EKG; Complete Time: 15:58 rt 01/03 15:57 Order name: EKG - Nurse/Tech; Complete Time: 16:00 rt EC:38 Rate is 78 beats/min. Rhythm is regular, Normal Sinus Rhythm with No ectopy. QRS [place] rt is Normal. MA interval is normal. QRS interval is normal. QT interval is prolonged at 494 msec. No Q waves. T waves are Normal. No ST changes noted. Administered Medications: 16:06 Drug: Aspirin PO 325 mg Route: PO; hb 16:06 Drug: Nitroglycerin Sublingual 0.4 mg Route: Sublingual; hb Disposition Summary: 01/03/23 18:33 Hospitalization Ordered Hospitalization Status: Observation rt Provider: Jazmine Dumas rt Location: Telemetry/MedSurg (observation) rt Condition: Stable rt Problem: an ongoing problem rt Symptoms: have improved rt Bed/Room Type: Standard rt Room Assignment: 409(01/03/23 19:10) mw Diagnosis - Chest pain, unspecified rt Forms: - Medication Reconciliation Form rt - SBAR form rt Signatures: Dispatcher [employer] Esha Calixto RN RN mw Elisa Nogueira RN RN Maryjo Palmer RN RN [id number] Akosua Guido PA-C PA-C [id number] Fred Dutta MD MD rt Corrections: (The following items were deleted from the chart) 19:10 18:33 rt mw
--- NOTE | 2023-01-03 21:21 | ER ---
Nurse's Notes [facility] Name: Vanessa Gonzalez Age: 47 yrs Sex: Female : 1975 Arrival Date: 01/03/2023 Time: 15:44 Bed 19 Private MD: Rehan Davila Diagnosis: Chest pain, unspecified Presentation: 01/03 15:50 Chief complaint: Intermittent chest pressure and SOB while sitting at desk, then near hb syncopal episode when walking in office just prior to arrival. Coronavirus screen: At this time, the client does not indicate any symptoms associated with coronavirus-19. Ebola Screen: No symptoms or risks identified at this time. Initial Sepsis Screen: Does the patient meet any 2 criteria? No. Patient's initial sepsis screen is negative. Does the patient have a suspected source of infection? No. Patient's initial sepsis screen is negative. Risk Assessment: Do you want to hurt yourself or someone else? Patient reports no desire to harm self or others. Onset of symptoms was January 03, 2023. 15:50 Method Of Arrival: Ambulatory hb 15:50 Acuity: ANDREW 3 hb Triage Assessment: 16:21 General: Appears in no apparent distress. uncomfortable, Behavior is calm, cooperative, kr3 appropriate for age. Pain: Complains of pain in chest. EENT: No signs and/or symptoms were reported regarding the EENT system. Neuro: Level of Consciousness is awake, alert, obeys commands, Oriented to person, place, time, situation. Cardiovascular: Patient's skin is warm and dry. Respiratory: Airway is patent Respiratory effort is even, unlabored, Respiratory pattern is regular, symmetrical. GI: Abdomen is round non-distended. 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 - Family history:: not pertinent. - Social history:: Smoking status: unknown. Screenin:20 [facility] ED Fall Risk Assessment (Adult) History of falling in the last 3 months, kr3 including since admission No falls in past 3 months (0 pts) Confusion or Disorientation No (0 pts) Intoxicated or Sedated No (0 pts) Impaired Gait No (0 pts) Mobility Assist Device Used No (0 pt) Altered Elimination No (0 pt) Score/Fall Risk Level 0 - 2 = Low Risk Oriented to surroundings, Maintained a safe environment, Educated pt \T\ family on fall prevention, incl call for assistance when getting out of bed, Assessed \T\ reinforced patient's understanding of fall precautions, Hourly rounding (assess needs \T\ fall precautionary measures) done. Abuse screen: Denies threats or abuse. Nutritional screening: No deficits noted. Tuberculosis screening: No symptoms or risk factors identified. Assessment: 16:20 Reassessment: Patient appears in no apparent distress at this time. Patient and/or kr3 family updated on plan of care and expected duration. Pain level reassessed. Patient is alert, oriented x 3, equal unlabored respirations, skin warm/dry/pink. patient moved to er 19. 20:31 Pain: Pain began gradually. kr3 20:31 Pain: kr3 Vital Signs: 15:50 BP 168 / 117; Pulse 85; Resp 16; Temp 97.7(TE); Pulse Ox 99% on R/A; Weight 103.87 kg; hb Height 5 ft. 2 in. ; Pain 4/10; 16:56 BP 123 / 77; Pulse 62; Resp 18; Pulse Ox 100% on R/A; kr3 15:50 Body Mass Index 41.88 (103.87 kg, 157.48 cm) hb 15:50 Pain Scale: Adult hb ED Course: 15:44 Patient arrived in ED. mr 15:45 Rehan Davila, is Private Physician. mr 15:46 Fred Dutta MD is Attending Physician. rt 16:00 Triage completed. hb 16:00 Arm band placed on. hb 16:00 Bed in low position. Call light in reach. Side rails up X 1. Client placed on kr3 continuous cardiac and pulse oximetry monitoring. NIBP monitoring applied. 16:20 Maryjo Palmer, MARIA R is Primary Nurse. kr3 17:00 Chest Single View XRAY In Process Unspecified. EDMS 18:32 Jazmine Dumas MD is Hospitalizing Provider. rt 20:23 No provider procedures requiring assistance completed. kr3 20:31 Patient admitted, IV remains in place. Patient maintains SpO2 saturation greater than kr3 95% on room air. Administered Medications: 16:06 Drug: Aspirin PO 325 mg Route: PO; hb 16:06 Drug: Nitroglycerin Sublingual 0.4 mg Route: Sublingual; hb Medication: 20:29 VIS not applicable for this client. kr3 Outcome: 18:33 Decision to Hospitalize by Provider. rt 20:30 Admitted to Med/surg kr3 20:30 Condition: stable 20:30 Instructed on the need for admit. 20:43 Patient left the ED. kr3 Signatures: Dispatcher [employer] [facility] Elisabet Chakraborty Heather, MARIA R RN Maryjo Palmer RN RN kr3 Fred Dutta MD MD rt
[2023-01-03 21:40] VITALS: O2SAT 100
[2023-01-03] MEDS ORDERED: NITROGLYCERIN 0.4 MG/TAB SL PRN (21:46)
[2023-01-03] MEDS ORDERED: ALPRAZOLAM 0.25 MG TABLET PO PRN (21:46)
[2023-01-03] MEDS ORDERED: HYDROCODONE/APAP 5/325 MG TAB PO PRN (21:46)
[2023-01-03] MEDS ORDERED: ACETAMINOPHEN 500 MG TAB PO PRN (21:46)
[2023-01-03] MEDS ORDERED: ATORVASTATIN 40 MG TAB PO SCH (21:46)
[2023-01-03 23:25] VITALS: BMI 41.8
[2023-01-04 03:25] LABS: Absolute Lymphocytes (CBC) 2.7 K/uL (0.7-4.9); Hematocrit 36.5 % (36.0-45.0); Lymphocytes % 36.4 % (15.3-44.8); MCV 81.9 fL (80-100); MPV 8.4 fL (7.6-11.3); RBC Red Blood Cell Count 4.45 M/uL (3.86-4.86)
[2023-01-04 03:46] LABS: Magnesium 2.2 mg/dL (1.6-2.4); Phosphorus 3.8 mg/dL (2.5-4.9); Potassium 3.5 mEq/L (3.5-5.1); Thyroid Stimulating Hormone 1.09 uIU/mL (0.358-3.740); Troponin High Sensitivity 6.5 pg/mL (<58.9)
[2023-01-04 08:10] VITALS: TEMP 96.8
[2023-01-04] MEDS ORDERED: POTASSIUM CL SA 10 MEQ TAB PO ONE (09:00)
[2023-01-04] MEDS ORDERED: ENOXAPARIN 40 MG/0.4 ML SQ SCH (09:00)
[2023-01-04] MEDS ORDERED: ASPIRIN EC 81 MG TAB PO SCH (09:00)
--- NOTE | 2023-01-04 09:51 | RAD REPORT ---
EXAM DESCRIPTION: US - CP - 01/04/2023 6:32 am CLINICAL HISTORY: near syncope COMPARISON: C Spine Wo Con dated 02/18/2019 TECHNIQUE: Real-time sonographic evaluation of both carotid systems was performed. Doppler interroga tion was performed with waveform tracing bilaterally. FINDINGS: Normal high resistance waveforms are noted in both external carotid arteries. The common c arotid arteries and internal carotid arteries show normal low resistance waveforms. No significant plaque formation is seen. Peak systolic and end diastolic velocity values and the ICA/ CCA ratios are in the non-hemodynamically significant range. Antegrade flow seen in both vertebral arteries. IMPRESSION: No evidence of a hemodynamically significant stenosis.
[2023-01-04 12:06] VITALS: BP 108/57
--- NOTE | 2023-01-06 12:34 | EKG ---
Test Date: 2023-01-03 Test Time: 15:57:24 Punch Press Setter: HB MEASUREMENT RESULTS: Intervals: Rate: 85 MO: 172 QRSD: 82 QT: 428 QTc: 509 [place]: P: 34 MO: 172 QRS: 49 T: 36 INTERPRETIVE STATEMENTS: Normal sinus rhythm Nonspecific T wave abnormality Prolonged QT Abnormal ECG Compared to ECG 12/26/2022 15:12:03 T-wave abnormality now present Prolonged QT interval now present Atrial-paced complex(es) or rhythm no longer present Electronically Signed On 01-06-23 12:28:00 CDT by Braeden Mejía
--- NOTE | 2023-01-06 12:34 | EKG ---
Test Date: 2023-01-03 Test Time: 15:58:12 Technical Support Engineer: HB MEASUREMENT RESULTS: Intervals: Rate: 78 OK: 178 QRSD: 86 QT: 434 QTc: 494 [place]: P: 25 OK: 178 QRS: 48 T: 35 INTERPRETIVE STATEMENTS: Normal sinus rhythm Prolonged QT Abnormal ECG Compared to ECG 01/03/2023 15:57:24 T-wave abnormality no longer present Electronically Signed On 01-06-23 12:27:58 CDT by Braeden Mejía
--- NOTE | 2023-01-12 22:47 | P.DS ---
Discharge Date: 01/04/23 Primary Care Provider: Giovanni Disposition: ROUTINE DISCHARGE Discharge Condition: GOOD Reason for Admission: Chest Pain Brief History of Present Illness: Patient is a 47 year old female with past medical history of hypertension, hyperlipidemia, GERD, depression/anxiety, fatty liver, prolonged QT syndrome with pacemaker/defibrillator who presented to the emergency department with complaints of chest pain and near syncope. She states that she has been experiencing "chest heaviness" on and off for 1 month now, feels like she cannot take a deep breath. No significant lab abnormalities, troponin within normal limits. Chest xray negative. EKG without any acute changes. Chest pain did improve after nitro. Vital signs have been stable. She received aspirin in the ED. ED provider wishes to admit patient for observation, for ACS rule out. Hospital Course: Patient was ruled out for acute coronary syndrome. Patient's troponins are negative. EKG is unremarkable. Patient only outpatient follow-up with Cardiology. Will need to schedule an echocardiogram and a stress test. Vital Signs/Physical Exam: Temp Pulse Resp BP Pulse Ox 96.8 F 60 15 108/57 L 99 01/04/23 12:00 01/04/23 12:00 01/04/23 12:00 01/04/23 12:00 01/04/23 12:00 General: Alert, In no apparent distress, Oriented x3 Laboratory Data at Discharge: WBC 7.50 thou/uL (4.3-10.9) 01/04/23 02:57 Hgb 12.2 g/dL (12.0-15.0) 01/04/23 02:57 Hct 36.5 % (36.0-45.0) 01/04/23 02:57 Plt Count 203 thou/uL (152-406) 01/04/23 02:57 Sodium 137 mEq/L (136-145) 01/04/23 02:57 Potassium 3.5 mEq/L (3.5-5.1) 01/04/23 02:57 BUN 13 mg/dL (7-18) 01/04/23 02:57 Creatinine 0.61 mg/dL (0.55-1.02) 01/04/23 02:57 Glucose 107 mg/dL (74-106) H 01/04/23 02:57 Phosphorus 3.8 mg/dL (2.5-4.9) 01/04/23 02:57 Magnesium 2.2 mg/dL (1.6-2.4) 01/04/23 02:57 Total Bilirubin 0.3 mg/dL (0.2-1.0) 01/03/23 16:16 AST 57 U/L (15-37) H 01/03/23 16:16 ALT 85 U/L (13-56) H 01/03/23 16:16 Alkaline Phosphatase 163 U/L (45-117) H 01/03/23 16:16 Triglycerides 174 mg/dL (<150) H 01/04/23 02:57 Cholesterol 199 mg/dL (<200) 01/04/23 02:57 HDL Cholesterol 44 mg/dL (40-60) 01/04/23 02:57 Cholesterol/HDL Ratio 4.52 01/04/23 02:57 Home Medications: Evolocumab [Repatha Syringe] 1 dose SQ SEECOM 08/23/18 Amlodipine Besylate [Norvasc] 2.5 mg PO DAILY 10/23/18 Alprazolam [Xanax Xr] 0.5 mg DAILY 09/09/21 Nebivolol HCl [Bystolic] 5 mg BID 09/09/21 Pantoprazole Sodium [Protonix] 40 mg DAILY 09/09/21 predniSONE [Prednisone] 5 mg PO DAILY 01/03/23 Aspirin [Aspirin EC 81 MG] 162 mg PO DAILY #60 tab 01/04/23 Hydrocodone 5/APAP 325 [[place] 5/325*] 1 tab PO Q6HP PRN #10 tab 01/04/23 New Medications: Aspirin [Aspirin EC 81 MG] 162 mg PO DAILY #60 tab Hydrocodone 5/APAP 325 [[place] 5/325*] 1 tab PO Q6HP PRN #10 tab PRN Reason: Pain Scale 5-7 (Moderate) Physician Discharge Instructions: -DC IV and DC home -Follow-up with PCP in 1 to 2 weeks -Follow-up with Cardiology in 1 to 2 weeks -Please call Dr. Dumas at [phone] if any questions regarding hospital stay -Please call nursing station at [phone] if any nursing or medication questions -Return to the emergency room if symptoms worsen Diet: AHA Activity: Fall precautions Followup: Rehan Davila DO [Primary Care Provider] - Braeden Mejía MD [ACTIVE - CAN ADMIT] - Time spent managing pt's care (in minutes): 35
== END 2023-01-04 15:38 | disposition home or self-care (01) ==
LOC: ER 15:42 → ERHOLD 18:54 → 4TH 20:28
PROVIDERS: ADMIT Hospitalist; ATTEND Hospitalist
DX: R07.9 Chest pain, unspecified (principal); I45.81 Long QT syndrome; I10 Essential (primary) hypertension; E78.5 Hyperlipidemia, unspecified; K21.9 Gastro-esophageal reflux disease without esophagitis; F32.A Depression, unspecified; F41.9 Anxiety disorder, unspecified; K76.0 Fatty (change of) liver, not elsewhere classified; Z95.810 Presence of automatic (implantable) cardiac defibrillator; Z95.0 Presence of cardiac pacemaker; Z82.49 Family history of ischemic heart disease and other diseases of the circulatory system; Z86.73 Personal history of transient ischemic attack (TIA), and cerebral infarction without residual deficits; Z91.81 History of falling
CPT/HCPCS: 93005 ×2; 85025 ×2; 80048; 36415; 83735 ×2; 84100; 80061; 84443; 84484 ×3; 80053; 83880; 71045; 93880; 99285; J1650; G0378 ×3

== ENCOUNTER 2023-07-16 17:08 | Inpatient (IN) | payer BC ==
--- OUTSIDE RECORDS SUMMARY | 2023-07-16 17:13 | XMS REPORT | Continuity of Care Document ---
:1975 Author Organization [facility] t Address [address] [facility]. [address] [place] [id number] Care Team Providers Name Role Phone AMY COOPER Primary Care Physician Unavailable DANA PERLA Attending Clinician UnavailJAMES Canales Attending Clinician Unavailable SABAS BENITO Attending Clinician Unavailable Alley Luna MA Attending Clinician Unavailable Sabas Benito MD Attending Clinician [phone] James Marshall MD Attending Clinician [phone] Attending Clinician Unavailable PAIGE Attending Clinician Unavailable Qian Tapia RN Attending Clinician Unavailable Mario Viera MD Attending Clinician Romel Jo Attending Clinician MARIO VIERA Attending Clinician Unavailable ROMEL LUGO Attending Clinician Unavailable DARIAN FRY Attending Clinician Unavailable TIMOTHY ROSARIO Attending Clinician Unavailable DANA PERLA Admitting Clinician UnavailCiarra Mary Admitting Clinician Unavailable PAIGE Admitting Clinician Unavailable DARIAN FRY Admitting Clinician Unavailable KETURAH ROLLINS Admitting Clinician Unavailable Payers Payer Name Policy Type Policy Number Effective Date Expiration Date Rose DE LA ROSA [id number] 2018 00:00:00 HMO/POS/OPEN ACCESS BCBS PPO POS EPO [id number] 2021 00:00:00 CHOICE Problems Condition Condition Condition Status Onset Resolution [...] obesity nce 0[facility]11 [facility] TIA TIA Disease Active [facility] (transient (transient 3-22 Shyanne kes ischemic ischemic 00:00: Medica l attack) attack) 00 Center 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 1-16 st 00:00: Hospita 00 l No known No known Disease Unive rs active active ity of problems problems [place] [facility] Allergies, Adverse Reactions, Alerts Allergy Allergy Status Severity Reaction(s) Onset Inactive Treating Comm ents Source Name Type Date Date Clinician Ketorola Propensi Active Anaphylaxis 2019- U nivers c ty to 707 ity of adverse 00:00: [place] reaction 00 Medical s Branch KETOROLA DRUG Active High Anaphylaxis 2019- Uni vers C INGREDI 707 ity of 00:00: [place] 00 Medical Branch Morphine Drug Active Hives, bradycard [facility] Allergy Shortness Of 3-22 ia Virgen es Breath, 00:00: Medical Other (See 00 Center Comments) Ketorola Drug Active Hives, bradycard [facility] Allergy Shortness Of 3-22 ia Virgen es Breath, 00:00: Medical Other (See 00 Center Comments) MORPHINE Allergy Active High Hives 2018-0 [facility] 3-22 00:00: 00 KETOROLA Allergy Active High Hives 2018-0 [facility] C 3-22 00:00: 00 Morphine Propensi Active 2018-0 SOB, Method i ty to 10-28 vomit, st adverse 00:00: low BP Hospita reaction 00 l s to drug Ketorola Propensi Active Anaphylaxis 2018-0 M ethodi c ty to 10-28 st adverse 00:00: Hospita reaction 00 l s to drug MORPHINE DRUG Active High Hives 2018- Univers INGREDI 16 ity of 00:00: [place] 00 Medical Branch Morphine Drug Active Shortness of SobSOB, U nivers Allergy Breath 10-28 vomit, ity of 00:00: low [place] 00 BPbradyca Medical rdiaSOB, Branch vomit, low BP Family History Family Member Diagnosis Comments Start Date Stop Date Source Natural brother Diabetes [facility] Natural brother Hypertension [facility] Cousin Breast cancer [facility] Natural father Hypertension [facility] Natural mother Hypertension [facility] Natural sister Breast cancer [facility] Natural sister Diabetes [facility] Natural sister Hypertension [facility] Social History Social Habit Start Date Stop Date Quantity Comments Source History SDOH [facility] Alcohol Comment Medical C enter Sexual orientation [facility] History SDOH [facility] Alcohol Std Drinks Medica l Center History SDOH [facility] Alcohol Binge Medical Lisa ter Exposure to Yes University of SARS-CoV-2 (event) [facility] Alcohol intake 2023-06-19 2023-06-[address] Virgen es 00:00:00 00:00:00 non-drinker of Medical Ce nter alcohol (finding) Tobacco use and 2023-06-06 2023-06-[address] Shyanne kes exposure 00:00:00 00:00:00 tobacco non-user Medical Center History SDOH 2019-07-21 2019-07-[address] [facility] Alcohol Frequency 00:00:00 00:00:00 Medical Center History of Social 2018-10-28 2018-10-[address] function 00:00:00 00:00:00 Hospital Sex Assigned At [address] Shyanne kes 00:00:00 00:00:00 Medical Center Smoking Status Start Date Stop Date Source Tobacco smoking consumption unknown [facility] Never smoked tobacco [facility] Medications Ordered Filled Start Stop Current Ordering Indication Dosage Frequency Signature Comments Components Source Medication Medication Date Date Medication? Clinician (SIG) Name Name evolocumab 0 Yes 140mg Q14D Inject [address] 140 mg/mL 8-25 mg [facility]ukes Syrg 09:11: subcutaneo Medical 42 usly every Center 14 (fourteen) days . nebivolol 2022-0 Yes 5mg QD Take [address] (BYSTOLIC) 8-25 tablet (5 Luke s 5 MG tablet 09:11: mg total) M edical 42 by mouth Center daily. ALPRAZolam 2022-0 Yes .5mg QD Take 1 [facility] t (XANAX XR) 8-25 tablet [facility]ukes 0.5 MG 24 09:11: (0.5 mg Medic al hr tablet 42 total) by Cente r mouth every morning. topiramate 0 Yes 50mg QD Take 1 [facility] t (TOPAMAX) 8-25 tablet (50 Luke s 50 MG 09:11: mg total) Medical tablet 42 by mouth Center nightly. ergocalcife 0 Yes [id number] Q7D Take [address] rol 8-25 capsule [facility]ukes (ERGOCALCIF 09:11: (50,000 Med ical DONNY) 1,250 42 Units Center mcg (50,000 total) by unit) mouth once capsule a week. amLODIPine 0 Yes 2.5mg Take 0.[address] (NORVASC) 5 8-25 tablets [facility] MG tablet 09:11: (2.5 mg Medic al 42 total) by Center mouth. estradioL 2022-0 2023- Yes 2mg Place [address] (ESTRING) 2 8- 08-24 vaginally Shyanne kes mg (7.5 mcg 00:00: 23:59 every 3 Me dical /24 hour) 00 :00 (three) Center vaginal months ring follow package directions . estradioL 2022-2022- No 2mg QD Take 1 [facility] (ESTRACE) 2 8- 08-27 tablet (2 Shyanne kes MG tablet 00:00: 00:00 mg total) Me dical 00 :00 by mouth Center daily for 30 days. predniSONE Yes Take by [facility] (DELTASONE) 6-23 mouth. [facility]ukes 5 MG tablet 00:00: Medica l 00 Center benzonatate 0 Yes [id number] 200mg Take 2 Univers 100 mg 1-21 capsules ity of capsule 00:00: by mouth [place] [address] every 8 Medical (eight) Branch hours as needed for Cough. azelastine Yes [id number] 1{spray Use 1 Univers 137 mcg 1-21 } [place] in ity of (0.1 %) 00:00: each [place] nasal spray 00 nostril 2 Med ical (two) Branch times daily. Use in each nostril as directed fluticasone 0 Yes [id number] 1{spray Use 1 Univers propionate 1-21 } [place] in ity o f 50 00:00: each [place] mcg/actuati 00 nostril Medic al on nasal daily. Branch spray benzonatate 0 Yes [id number] 200mg Take 2 Univers 100 mg 1-21 capsules ity of capsule 00:00: by mouth [place] [address] every 8 Medical (eight) Branch hours as needed for Cough. azelastine 0 Yes [id number] 1{spray Use 1 Univers 137 mcg 1-21 } [place] in ity of (0.1 %) 00:00: each [place] nasal spray 00 nostril 2 Med ical (two) Branch times daily. Use in each nostril as directed fluticasone 0 Yes [id number] 1{spray Use 1 Univers propionate 1-21 } [place] in ity o f 50 00:00: each [place] mcg/actuati 00 nostril Medic al on nasal daily. Branch spray amLODIPine 2020-10 Yes 2.5mg Take 2.5 Un jeremy 5 mg tablet 2-31 mg by ity of 09:38: mouth. [address] nebivoloL 5 2020-10 Yes 5mg Take 5 mg U nivers mg tablet 2-31 by mouth. ity o f 09:38: [address] ALPRAZolam 2020-10 Yes .5mg Take 0.5 Uni vers 0.5 mg 2-31 mg by ity of tablet 09:38: mouth. [address] amLODIPine 2020-10 Yes 2.5mg Take 2.5 Un jeremy 5 mg tablet 2-31 mg by ity of 09:38: mouth. [address] nebivoloL 5 2020-10 Yes 5mg Take 5 mg U nivers mg tablet 2-31 by mouth. ity o f 09:38: [address] ALPRAZolam 2020-10 Yes .5mg Take 0.5 Uni vers 0.5 mg 2-31 mg by ity of tablet 09:38: mouth. [address] REPATHA 2020-10 Yes Univers SURECLICK 1-29 ity of 140 mg/mL 00:00: [place] PnIj [address] [place] [address] REPATHA 2020-10 Yes Univers SURECLICK 1-29 ity of 140 mg/mL 00:00: [address] pantoprazol 2020-10 Yes Univer s e 40 mg EC 1-23 ity of tablet 00:00: [address] pantoprazol 2020-10 Yes Univer s e 40 mg EC 1-23 ity of tablet 00:00: [address] evolocumab 2020-0 Yes 140mg Q14D Inject [address] (REPATHA 7-16 mg Lukes SYRINGE) 14:02: subcutaneo Med ical 140 mg/mL 23 usly every Cent er Syrg 14 (fourteen) days . nebivolol 2020-0 Yes 5mg QD Take [address] (BYSTOLIC) 7-16 by mouth Lukes 5 MG tablet 14:02: daily. Medi rah [address] [place] ALPRAZolam 2019-0 Yes .5mg QD Take 0.[address] (XANAX XR) 7-16 mg by [facility]ukes 0.5 MG 24 14:02: mouth Medical hr tablet 23 every Center morning. topiramate 2020-0 Yes 50mg QD Take [address] (TOPAMAX) 7-16 by mouth [facility]ukes 50 MG 14:02: nightly . Medical tablet [address] [place] ergocalcife 2019-0 Yes [id number] Q7D Take [facility] rol 7-16 50,000 [...] Medical tablet 23 Center ergocalcife 2020-0 Yes [id number] Q7D Take [facility] rol 7-16 50,000 [...] MG 00 by mouth Center tablet daily. amLODIPine 2019-0 Yes 2.5mg QD Take 2.5 [...] Hospita 100 mg 05 daily. l capsule evolocumab 2019-0 Yes 140mg Q14D Inject 140 [...] tablet 09:52: mouth Hospita 05 daily. l Vital Signs Vital Name Observation Time Observation Value Comments Source HEIGHT 2019-12-17 00:00:00 157.5 cm WEIGHT 2019-12-17 00:00:00 95.936 kg HEIGHT 2023-06-19 12:27:00 157.5 cm WEIGHT 2023-06-19 12:27:00 100.88 kg HEIGHT 2023-06-19 12:27:00 157.5 cm WEIGHT 2023-06-19 12:27:00 100.88 kg HEIGHT 2023-06-06 09:08:00 157.5 cm WEIGHT 2023-06-06 09:08:00 99.791 kg HEIGHT 2023-06-06 09:08:00 157.5 cm WEIGHT 2023-06-06 09:08:00 99.791 kg Systolic blood 2021-11-03 00:59:00 127 mm[Hg] [facility]iver [facility] Diastolic blood 2021-11-03 00:59:00 84 mm[Hg] Unive rsity [facility] Heart rate 2021-11-03 00:59:00 64 /min [facility] Body temperature 2021-11-03 00:59:00 36.61 Jessica [facility] Respiratory rate 2021-11-03 00:59:00 19 /min [facility] Body weight 2021-11-03 00:59:00 97.07 kg [facility] BMI 2021-11-03 00:59:00 39.14 kg/m2 [facility] Oxygen saturation in 2021-11-03 00:59:00 98 /min [facility] blood by [facility] [place] Pulse oximetry Branch HEIGHT 2019-12-17 00:00:00 157.5 cm WEIGHT 2019-12-17 00:00:00 95.936 kg Systolic blood 2023-06-19 12:27:00 136 mm[Hg] [facility] Diastolic blood 2023-06-19 12:27:00 85 mm[Hg] [facility] S [facility] Heart rate 2023-06-19 12:27:00 63 /min [facility] Body temperature 2023-06-19 12:27:00 36.44 Jessica [facility] Body height 2023-06-19 12:27:00 157.5 cm [facility] Body weight 2023-06-19 12:27:00 100.88 kg [facility] BMI 2023-06-19 12:27:00 40.68 kg/m2 [facility] Procedures Procedure Date / Time Performed Performing Clinician Sourc e POCT MOLECULAR FLU 2021-11-03 01:09:00 [facility]REP 2021-11-03 01:07:00 Romel Lugo [facility] Plan of Care Planned Activity Planned Date Details Comments Source Future Scheduled 2024-06-[address] [facility] Test 00:00:00 Counseling and Screening [facility] (12+) [code = Tobacco Cessation Counseling and Screening (12+)] Future Scheduled 2023-06-17 Screening for malignant [facility] 04:45:16 neoplasm of colon Hospital (procedure) [code = 060828346] Future Scheduled 2023-06-17 Screening for malignant [facility] 04:45:16 neoplasm of colon Hospital (procedure) [code = 283621295] Future Scheduled 2023-06-17 Screening for malignant [facility] 04:45:16 neoplasm of colon Hospital (procedure) [code = 372784040] Future Scheduled 2023-06-17 COVID-19 VACCINE (#1) Me thodist Test 04:45:16 [code = COVID-19 VACCINE Hos pital (#1)] Future Scheduled 2023-06-17 Screening for malignant [facility] 04:45:16 neoplasm of cervix Hospital (procedure) [code = 164718658] Future Scheduled 2023-06-17 BREAST CANCER SCREENING [facility] 04:45:16 [code = BREAST CANCER Hospit al SCREENING] Future Scheduled 2023-06-17 Screening for malignant [facility] 04:45:16 neoplasm of colon Hospital (procedure) [code = 589995909] Future Scheduled 2023-06-17 Screening for malignant [facility] 04:45:16 neoplasm of colon Hospital (procedure) [code = 121997413] Future Scheduled 2023-06-17 INFLUENZA VACCINE (#1) M ethodist Test 04:45:16 [code = INFLUENZA VACCINE Ho spital (#1)] Future Scheduled 2023-06-13 Influenza Vaccine (#1) [facility] 00:00[facility]00 [code = Influenza Vaccine Me dical Center (#1)] Future Scheduled 2022-10-[address] [facility] Test 00:00:00 (12+) [code = DEPRESSION Med ical Center SCREENING (12+)] Future Scheduled 2022-10-[address] [facility] Test 00:00:00 (12+) [code = DEPRESSION Med ical Center SCREENING (12+)] Future Scheduled 2022-10-05 COVID-19 VACCINE (#1) [facility] Test 09:06:07 [code = COVID-19 VACCINE Hos pital (#1)] Future Scheduled 2022-10-05 Screening for malignant [facility] 09:06:07 neoplasm of cervix Hospital (procedure) [code = 158010969] Future Scheduled 2022-10-05 BREAST CANCER SCREENING [facility] 09:06:07 [code = BREAST CANCER Hospit al SCREENING] Future Scheduled 2022-10-05 COLONOSCOPY SCREENING [facility] Test 09:06:07 [code = COLONOSCOPY Hospital SCREENING] Future Scheduled 2022-10-05 INFLUENZA VACCINE [code = [facility] 09:06:07 INFLUENZA VACCINE] Hospital Future Scheduled 2022-10-05 COVID-19 VACCINE (#1) [facility] Test 09:06:07 [code = COVID-19 VACCINE Hos pital (#1)] Future Scheduled 2022-10-05 Screening for malignant [facility] 09:06:07 neoplasm of cervix Hospital (procedure) [code = 645180631] Future Scheduled 2022-10-05 BREAST CANCER SCREENING [facility] 09:06:07 [code = BREAST CANCER Hospit al SCREENING] Future Scheduled 2022-10-05 COLONOSCOPY SCREENING Me [facility]odist Test 09:06:07 [code = COLONOSCOPY Hospital SCREENING] Future Scheduled 2022-10-05 INFLUENZA VACCINE [code = [facility] 09:06:07 INFLUENZA VACCINE] Hospital Future Scheduled 2022-06-13 INFLUENZA VACCINE (#1) [facility] 00:00[facility]00 [code = INFLUENZA VACCINE Me dical Center (#1)] Future Scheduled 2022-06-13 INFLUENZA VACCINE (#1) [facility] 00:00:00 [code = INFLUENZA VACCINE Me dical Center (#1)] Future Scheduled 2022-01-02 Lipid panel (procedure) [facility] Test 00:00:00 [code = 17035968] Medical Ce nter Future Scheduled 2022-01-02 Lipid panel (procedure) [facility] Test 00:00:00 [code = 40746471] Medical Ce nter Future Scheduled 2022-01-02 Lipid panel (procedure) [facility] Test 00:00:00 [code = 69131226] Medical Ce nter Future Scheduled 2021-04-[address] [facility] Test 00:00:00 Counseling and Screening [facility] (12+) [code = Tobacco Cessation Counseling and Screening (12+)] Future Scheduled 2021-04-[address] [facility] Test 00:00:00 Counseling and Screening [facility] (12+) [code = Tobacco Cessation Counseling and Screening (12+)] Future Scheduled 1997 Screening for malignant [facility] Test 00:00:00 neoplasm of cervix Medical C enter (procedure) [code = 992065862] Future Scheduled 1997 Screening for malignant [facility] Test 00:00:00 neoplasm of cervix Medical C enter (procedure) [code = 795483587] Future Scheduled 1997 Screening for malignant [facility] Test 00:00:00 neoplasm of cervix Medical C enter (procedure) [code = 533227466] Future Scheduled 1995 DTAP/TDAP/TD VACCINES ([address] [facility] Test 00:00:00 - Tdap) [code = Medical Cent er DTAP/TDAP/TD VACCINES (1 - Tdap)] Future Scheduled 1995 DTAP/TDAP/TD VACCINES ([address] [facility] Test 00:00:00 - Tdap) [code = Medical Cent er DTAP/TDAP/TD VACCINES (1 - Tdap)] Future Scheduled 1995 DTAP/TDAP/TD VACCINES ([address] [facility] Test 00:00:00 - Tdap) [code = Medical Cent er DTAP/TDAP/TD VACCINES (1 - Tdap)] Future Scheduled [...] HEPATITIS C Medical Center SCREENING] Future Scheduled [address] [facility] Test 00:00:00 virus screening Medical Cent er (procedure) [code = 126318887] Future Scheduled 1977-03-11 COVID-19 VACCINE (#1) [facility] 00:[facility]00 [code = COVID-19 VACCINE Med ical Center (#1)] Future Scheduled 1977-03-11 COVID-19 VACCINE (#1) [facility] 00:00:00 [code = COVID-19 VACCINE Med ical Center (#1)] Future Scheduled 1977-03-11 COVID-19 VACCINE (#1) [facility] 00:00:00 [code = COVID-19 VACCINE Med ical Center (#1)] Future Scheduled 1976 CT Colonography (combo) [facility] Test 00:00:00 [code = CT Colonography [facility] Center (combo)] Future Scheduled 1976 Screening for malignant [facility] Test 00:00:00 neoplasm of colon Medical Ce nter (procedure) [code = 745996027] Future Scheduled [address] Screening for malignant [facility] Test 00:00:00 neoplasm of colon Medical Ce nter (procedure) [code = 593776784] Future Scheduled [address] Screening for malignant [facility] Test 00:00:00 neoplasm of colon Medical Ce nter (procedure) [code = 333832327] Future Scheduled [address] Screening for malignant [facility] Test 00:00:00 neoplasm of colon Medical Ce nter (procedure) [code = 052124521] Future Scheduled 1975 Sigmoidoscopy [code = [facility] 00:00:00 Sigmoidoscopy] Medical Cente r Future Scheduled 1976 CT Colonography (combo) [facility] Test 00:00:00 [code = CT Colonography Medi [facility] Center (combo)] Future Scheduled 1976 Screening for malignant [facility] Test 00:00:00 neoplasm of colon Medical Ce nter (procedure) [code = 982569839] Future Scheduled 1976 Screening for malignant [facility] Test 00:00:00 neoplasm of colon Medical Ce nter (procedure) [code = 133359833] Future Scheduled 1976 Screening for malignant [facility] Test 00:00:00 neoplasm of colon Medical Ce nter (procedure) [code = 398836401] Future Scheduled 1976 Screening for malignant [facility] Test 00:00:00 neoplasm of colon Medical Ce nter (procedure) [code = 725463826] Future Scheduled 1975 Sigmoidoscopy [code = [facility] 00:00:00 Sigmoidoscopy] Medical Cente r Future Scheduled 1976 CT Colonography (combo) [facility] Test 00:00:00 [code = CT Colonography [facility] (combo)] Future Scheduled 1976 Screening for malignant [facility] Test 00:00:00 neoplasm of colon Medical Ce nter (procedure) [code = 077919584] Future Scheduled 1976 Screening for malignant [facility] Test 00:00:00 neoplasm of colon Medical Ce nter (procedure) [code = 915453981] Future Scheduled 1976 Screening for malignant [facility] Test 00:00:00 neoplasm of colon Medical Ce nter (procedure) [code = 800634403] Future Scheduled 1976 Screening for malignant [facility] Test 00:00:00 neoplasm of colon Medical Ce nter (procedure) [code = 216352898] Future Scheduled 1975 Sigmoidoscopy [code = [facility] Test 00:00:00 Sigmoidoscopy] Medical Cente r Encounters Start End Encounter Admission Attending Care Care Encounter Source Date/Time Date/Time Type Type Clinicians Facility Department ID 2021-07-17 [facility] [id number] [facility] 21:58:59 DANA CURRY 2023-07-25 2023-07-25 Outpatient JAYLEN [facility] [id number] 00:[facility]00 00:00:00 [facility] 2023-07-25 2023-07-25 Outpatient CORNELIA BENITO [facility] [id number] [facility] 00:00:00 00:00:00 SABAS 2023-06-20 2023-06-20 Telephone Jeremy [facility] [id number] 00:[facility]00 00:00:00 [facility] 2023-06-19 2023-06-19 Office Joanna, [facility] [id number] 12:15:00 13:11:04 Visit [facility] 2023-06-19 2023-06-19 Outpatient CORNELIA BENITO [facility] [id number] 12:08:03 13:11:04 [facility] 2023-06-09 2023-06-09 [facility] [id number] 00:[facility]00 00:00:00 [facility] 2023-06-09 2023-06-09 [facility] [id number] 00:[facility]00 00:00:00 [facility] 2023-06-06 2023-06-06 [facility] [id number] 10:00:00 10:27:28 Visit [facility] 2023-06-06 2023-06-06 Outpatient CORNELIA CONTRERAS [facility] [id number] 09:00:41 10:27:28 [facility] 2023-05-06 2023-05-06 [facility] [id number] 00:00:00 00:00:00 [facility] 2022-09-04 2022-09-[address] [facility] [id number] [facility] 12:00:00 12:00:[address] [facility] 2022-04-23 2022-04-23 Outpatient MEMO BANDA [facility]15 [facility] 09:51:00 09:51:00 ARTEMIO [facility] 2021-11-04 2021-11-04 Letter TIMOTHY Tapia [id number] Univers 00:00:00 00:00:00 (Out) Qian GARCIA [id number] it y of [facility] [id number] [place] as [id number] [address] 2021-11-02 2021-11-02 Mario Umaña [facility] [id number] Univers 19:00:00 19:05:25 Romel Mackey [facility] [id number] ity [facility] [id number] [place] as BRENNA?BLEA [id number] [address] MEDICAL OFFICE BUILDING 2021-11-02 2021-11-02 Outpatient Rafael WERNER [facility] [id number] Univers 19:00:00 19:05:25 [facility] 2021-11-02 2021-11-02 [facility] [id number] Univers 18:45:00 18:45:00 [facility] 2021-10-12 2021-10-12 Outpatient Rafael LUGO [facility] [id number] Univers 10:00:00 09:48:58 [facility] 2020-04-18 2020-04-18 Outpatient CORNELIA [facility] [id number] [facility] 00:00:00 00:00:00 DANA CURRY 2020-04-18 2020-04-18 [facility] [id number] SLE 00:00:00 00:00:00 [id number] 2020-02-03 2020-02-03 Outpatient [facility] [id number] SLE 00:00:00 00:00:00 [id number] Results Test Description Test Time Test Comments Results Result Comments Source POCT MOLECULAR FLU 2021-11-03 01:20:49 Test Item Value Reference Range Interpretation Comme nts POCT Molecular FluA (test code = 11877-5) Negative Negative POCT Molecular FluB (test code = 82447-5) Negative Negative Lab Interpretation (test code = 85926-8) [facility] [id number] 01:15:21 Test Item Value Reference Range Interpretation Comments POCT Molecular Strep (test code = Negative Negative 99395-5) Lab Interpretation (test code = Normal 41249-2) [facility] [id number] 11:14:00 Test Item Value Reference Range Interpretation Comments POC-GLUCOSE METER 86 mg/dL 70-110 : TESTED A T [facility] 6720 (BEAKER) (test code = [facility], 1538) 00462: Negotiator/Techni ashish ID = [id number] for SABAS CHAVEZ BASIC METABOLIC [id number] 05:47:00 Test Item Value Reference Range Interpretation [...] S NOT APPLICABLE FOR DIALYSIS PATIEN TS. Negotiator ID - PIAYA LPOCT-GLUCOSE [id number] 05:44:00 Test Item Value Reference Range Interpretation Comments POC-GLUCOSE METER 97 mg/dL 70-110 : TESTED A T [facility] 6720 (BEAKER) (test code = [facility], 153) 07851: Negotiator/Techni ashish ID = [id number] for SAND ERS, POLO CBC W/PLT COUNT & AUTO [id number] 05:31:00 Test Item Value Reference Range Interpretation [...] PERCENT (BEAKER) (test code = 2801) POCT-GLUCOSE [id number] 00:07:00 Test Item Value Reference Range Interpretation Comments POC-GLUCOSE METER 150 mg/dL 70-110 H : TESTED A T [facility] 6720 (BEAKER) (test code = [facility], 1538) 57475: Negotiator/Techni ashish ID = [id number] for POLO CHAVEZ POCT-GLUCOSE [id number] 17:50:00 Test Item Value Reference Range Interpretation Comments POC-GLUCOSE METER 161 mg/dL 70-110 H : TESTED A T BSC 6720 (BEAKER) (test code = [facility]Y [facility], 1538) [address]324: Negotiator/Techni ashish ID = [id number] for Ramirez Tucker TISSUE [id number] 16:24:00Surgical Pathology Report Case: [id number] Authorizing Provider: Dana Perla Collected: 04/26/2020 10:59 AM MD Darlene Ordering Location: [facility] PERIOPERATIVE Received: 04/26/2020 02:14 PM SERVICES Pathologist: Lea Santillan MD Specimen: Explant, Lap Gastric Band for I and D A. GASTRIC, GASTRIC BAND, REMOVAL: - GASTRIC BAND IDENTIFIED (GROSS ONLY) Signing Pathologist Direct Phone Line: [phone] signed by Lea Santillan MD on 04/26/2020 at 4:24 [id number] obesityOther hyperlipidemia Obstructive sleep apnea Heart disease, [...] The Port-A-Cath is inscribed with "lot number: [id number] part number: [id number] full range: 0-10 cc." A gross photograph is taken. No sections are submitted-gross only.KEVIN Sigala PA ([facility])N/[id number] 12:53:00 Test Item Value Reference Range Interpretation Comments SODIUM (BEAKER) (test code = 381) 137 meq/L 136-145 POTASSIUM (BEAKER) (test code = 4.2 meq/L 3.5-5.1 379) CHLORIDE (BEAKER) (test code = 382) 103 meq/L 98-107 CO2 (BEAKER) (test code = 355) 26 meq/L 22-29 Negotiator ID - GARTH LBUN AND CREATININE [id number] 12:53:00 Test Item Value Reference Range Interpretation [...] S NOT APPLICABLE FOR DIALYSIS PATIEN TS. Negotiator ID - GARTH [id number] 12:36:00 Test Item Value Reference Range Interpretation Comments HEMOGLOBIN (BEAKER) (test code = 13.9 GM/DL 11.2-15.7 410) Negotiator ID - [id number], CHEST, 2 [id number] 15:35:00Reason for Exam:- >bariatric surgery status; abdominal pain,LUQ, Gastroesophageal reflux disease,esophagitis presence not specificied, pre-operative clearanceFINAL REPORT History provided: Bariatric surgery, abdominal pain CHEST PA AND LATERAL COMPARISON STUDY: 01/01/2019 Heart size normal. Dual lead left subclavian ICD. Lungs clear and vascularity normal. Signed: Jc Tobar MDReport Verified Date/Time: 08/26/2019 15:35:48 Reading Location: [facility] Diagnostic Imaging Reading Room - [facility] 1.310.12 TISSUE [id number] 09:50:00Surgical Pathology Report Case: [id number] Authorizing Provider: Darian Fry MD Collected: 07/23/2019 0722 Ordering Location: [facility] Endoscopy Received: 07/23/2019 1333 Services Pathologist: Lea Santillan MD Specimens: A) - Biopsy, Gastric, r/o H. Pylori B) - Biopsy, Esophagus, at36cm r/o Nicholson's Esophagus A. STOMACH, RANDOM BIOPSIES: - CHRONIC INACTIVE GASTRITIS - NEGATIVE FOR HELICOBACTER PYLORI ORGANISMS BY WARTHIN STARRY STAIN - NEGATIVE FOR INTESTINAL METAPLASIA, DYSPLASIA, MALIGNANCYB. ESOPHAGUS, 36 CM, BIOPSY: - JUNCTIONAL MUCOSA WITH REFLUX ESOPHAGITIS - NEGATIVE FORINTESTINAL METAPLASIA, DYSPLASIA, MALIGNANCY Signing Pathologist Direct Phone Line: [phone] ronically signed by Lea Santillan MD on 07/27/2019 at 9:50 [id number]. Biopsy gastric, description rule out H. Pylori. Biopsy esophagus, description at 36, rule out Nicholson's esophagus Specimen A. Received fixative in a container labeled with the patient's demographic information and surgical accession number are two fragments 0.4 x 0.2 x 0.1 cm in aggregate submitted in block A1.Specimen B. Received fixative in a container labeled with the patient's demographic information and surgicalaccession number is one fragment 0.3 x 0.1 [...] Immunohistochemistry technical testing was performed at [facility], Pathology Laboratory where it was developed [...] to perform high complexity clinical laboratory testing.HEMOGLOBIN [id number] 12:55:00 Test Item Value Reference Range Interpretation Comments HEMOGLOBIN A1C (DARRINAKER) (test code = 4.8 % 4.3-6.1 368) LIPID [id number] 08:01:00 Test Item Value Reference Range Interpretation [...] 130-159 High 160-189 Very High >=190COMPREHENSIVE METABOLIC [id number] 08:01:00 Test Item Value Reference Range Interpretation [...] FOR DIALYSIS PATIEN TS. TSH/FREE T4 IF [id number] 06:11:00 Test Item Value Reference Range Interpretation Comments THYROID STIMULATING HORMONE 2.58 uIU/mL 0.35-4.94 (BEAKER) (test code = 772) VITAMIN B12 AND [id number] 06:11:00 Test Item Value Reference Range Interpretation [...] 0-0 (BEAKER) (test code = 413) URINALYSIS [id number] 02:49:00 Test Item Value Reference Range Interpretation Comments RBC UA (BEAKER) (test code = 519) < /HPF WBC UA (BEAKER) (test code = 520) 1 /HPF MUCUS (BEAKER) (test code = 1574) Many SQUAMOUS EPITHELIAL (BEAKER) (test 4 /HPF code = 516) URINALYSIS WITH MICROSCOPIC IF [id number] 02:46:00 Test Item Value Reference Range Interpretation [...] pg/mL 0-100 (test code = 700) TROPONIN [id number] 15:40:00 Test Item Value Reference Range Interpretation [...] acute neurological disease, and persistent tachyarrhythmia.BASIC METABOLIC [id number] 15:39:00 Test Item Value Reference Range Interpretation [...] m DATA TO CALCULA TE ESTIMATED GFR. [id number] 15:33:00 Test Item Value Reference Range Interpretation Comments MAGNESIUM (BEAKER) (test code = 2.0 mg/dL 1.6-2.6 627) RAD, CHEST, 1 VIEW, NON [id number] 15:29:00Reason for exam:->chest painIs the patient ?->UnknownFINAL REPORT TECHNIQUE: Frontal chest radiograph dated 01/01/2019. CLINICAL HISTORY: Chest pain COMPARISON STUDY: None IMPRESSION:Left-sided, dual-chamber defibrillator is in place.No pleural effusion or pneumothorax. Cardiomediastinal silhouette is normal in size. No pulmonary edema. No fracture. Signed: Bg Zamudioeport Verified Date/Time: 01/01/2019 15:29:08 ReadingLocation: [facility] Radiology Reading Room Electronically signed by: BG ZAMUDIO MD on 01/01 03:29 [id number] 15:23:00 Test Item Value Reference Range Interpretation [...] for patients with mechanical heart valves. SCREEN, [id number] 15:23:00 Test Item Value Reference Range Interpretation Comments TEST URINE (BEAKER) (test Negative code = 583) CBC W/PLT COUNT & AUTO [id number] 15:15:00 Test Item Value Reference Range Interpretation [...] (BEAKER) (test code = 2801) CT, BRAIN/STROKE [id number] 14:33:00Reason for exam:->NUMBNESSReason for exam:->HEADACHEIs the patient [...] MDReport Verified Date/Time: 01/01/2019 14:33:00 Reading Location: [facility] Radiology Reading Room
[2023-07-16] MEDS ORDERED: FENTANYL CITR 100 MCG/2 ML ONE (17:45)
[2023-07-16] MEDS ORDERED: FAMOTIDINE 20 MG/2 ML VIAL IV ONE (17:46)
[2023-07-16] MEDS ORDERED: ONDANSETRON 4 MG/2 ML VIAL ONE (17:46)
[2023-07-16] MEDS ORDERED: NA CHLORIDE 0.9% 1,000 ML ONE ×2 (17:46→20:00)
[2023-07-16 18:06] LABS: Absolute Lymphocytes (CBC) 2.6 K/uL (0.7-4.9); Hematocrit 37.9 % (36.0-45.0); Lymphocytes % 26.9 % (15.3-44.8); MCV 79.8 fL (80-100); MPV 7.7 fL (7.6-11.3); Platelets 241 thou/uL (152-406); RBC Red Blood Cell Count 4.76 M/uL (3.86-4.86)
[2023-07-16 18:22] LABS: Specific Gravity 1.012 (1.005-1.030); Urine Bilirubin NEGATIVE (Negative); Urine Blood Negative (Negative); Urine Clarity Clear (Clear); Urine Color Light-Yellow (Yellow); Urine Glucose NEGATIVE (Negative); Urine Protein NEGATIVE (Negative); Urine Urobilinogen Normal (Normal); Urine pH 6.5 (5.0-7.0)
[2023-07-16 18:27] LABS: Specific Gravity 1.012 (1.005-1.030)
[2023-07-16 18:29] LABS: Albumin 3.8 g/dL (3.4-5.0); Bilirubin Total 0.5 mg/dL (0.2-1.0); Potassium 3.5 mEq/L (3.5-5.1); Protein, Total 8.4 g/dL (6.4-8.2)
--- NOTE | 2023-07-16 19:26 | RAD REPORT ---
EXAM DESCRIPTION: CT - Abdomen Pelvis W Contrast - 07/16/2023 7:05 pm CLINICAL HISTORY: Abdominal pain COMPARISON: 2021 TECHNIQUE: Computed axial tomography of the abdomen pelvis was obtained. 100 cc Isovue-300 was admin istered intravenously. Oral contrast was not requested which limits evaluation of bowel and appendix All CT scans are performed using dose optimization technique as appropriate and may include automated exposure control or mA/KV adjustment according to patient size. FINDINGS: The liver, spleen, pancreas, adrenal and kidneys appear unremarkable. There is no evidence of diverticulitis. Normal appendix. Cholecystectomy. Hysterectomy. No adnexal mass Postsurgical changes involve the stomach Mild dilatation of a loop of jejunum within the left upper quadrant. There appears to surgical suture in this region. Small to moderate umbilical hernia IMPRESSION: Mild dilatation of a loop of jejunum within the left upper quadrant presumably a focal i leus . If the patient's symptoms persist then a followup plain film abdominal series would be recomme nded
--- NOTE | 2023-07-16 19:55 | EDPHYS ---
Physician Documentation [facility] Name: Vanessa Gonzalez Age: 47 yrs Sex: Female : 1975 Arrival Date: 07/16/2023 Time: 17:08 Bed 19 Private MD: ED Physician Eliot Hair HPI: 07/16 19:39 This 47 yrs old Female presents to ER via Ambulatory with complaints of madyson Abdominal Pain. 19:39 The patient presents with abdominal pain. 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 - Social history:: Smoking status: Patient denies any tobacco usage or history of. ROS: 19:42 Constitutional: Negative for fever, chills, and weight loss, Eyes: Negative for injury, madyson pain, redness, and discharge, ENT: Negative for injury, pain, and discharge, Neck: Negative for injury, pain, and swelling, Cardiovascular: Negative for chest pain, palpitations, and edema, Respiratory: Negative for shortness of breath, cough, wheezing, and pleuritic chest pain, Back: Negative for injury and pain, : Negative for injury, bleeding, discharge, and swelling, MS/Extremity: Negative for injury and deformity, Skin: Negative for injury, rash, and discoloration, Neuro: Negative for headache, weakness, numbness, tingling, and seizure, Psych: Negative for depression, anxiety, suicide ideation, homicidal ideation, and hallucinations, Allergy/Immunology: Negative for hives, rash, and allergies, Endocrine: Negative for neck swelling, polydipsia, polyuria, polyphagia, and marked weight changes, Hematologic/Lymphatic: Negative for swollen nodes, abnormal bleeding, and unusual bruising, 19:42 Abdomen/GI: Positive for abdominal pain, nausea, abdominal cramps, abdominal distension, of the left upper quadrant and left lower quadrant, Exam: 19:42 Constitutional: This is a well developed, well nourished patient who is awake, alert, madyson and in no acute distress. Head/Face: Normocephalic, atraumatic. Eyes: Pupils equal round and reactive to light, extra-ocular motions intact. Lids and lashes normal. Conjunctiva and sclera are non-icteric and not injected. Cornea within normal limits. Periorbital areas with no swelling, redness, or edema. ENT: Nares patent. No nasal discharge, no septal abnormalities noted. Tympanic membranes are normal and external auditory canals are clear. Oropharynx with no redness, swelling, or masses, exudates, or evidence of obstruction, uvula midline. Mucous membranes moist. Neck: Trachea midline, no thyromegaly or masses palpated, and no cervical lymphadenopathy. Supple, full range of motion without nuchal rigidity, or vertebral point tenderness. No Meningismus. Chest/axilla: Normal chest wall appearance and motion. Nontender with no deformity. No lesions are appreciated. Cardiovascular: Regular rate and rhythm with a normal S1 and S2. No gallops, murmurs, or rubs. Normal PMI, no JVD. No pulse deficits. Respiratory: Lungs have equal breath sounds bilaterally, clear to auscultation and percussion. No rales, rhonchi or wheezes noted. No increased work of breathing, no retractions or nasal flaring. Back: No spinal tenderness. No costovertebral tenderness. Full range of motion. Skin: Warm, dry with normal turgor. Normal color with no rashes, no lesions, and no evidence of cellulitis. MS/ Extremity: Pulses equal, no cyanosis. Neurovascular intact. Full, normal range of motion. Neuro: Awake and alert, GCS 15, oriented to person, place, time, and situation. Cranial nerves II-XII grossly intact. Motor strength 5/5 in all extremities. Sensory grossly intact. Cerebellar exam normal. Normal gait. Psych: Awake, alert, with orientation to person, place and time. Behavior, mood, and affect are within normal limits. 19:42 Abdomen/GI: Inspection: abdomen appears normal, Bowel sounds: normal, Palpation: mild abdominal tenderness, moderate abdominal tenderness, in the posterior aspect of left lateral abdomen, left upper quadrant and left lower quadrant, Vital Signs: 17:16 BP 159 / 117; Pulse 84; Resp 18 S; Temp 97.9(TE); Pulse Ox 100% on R/A; Weight 99.34 kg aa5 (R); Height 5 ft. 2 in. (R); 19:20 BP 143 / 86; Pulse 72; Resp 18 S; Pulse Ox 99% on R/A; ha1 20:20 BP 147 / 92; Pulse 75; Resp 18 S; Pulse Ox 100% on R/A; ha1 21:17 BP 162 / 92; Pulse 76; Resp 18 S; Pulse Ox 100% on R/A; ha1 17:16 Body Mass Index 40.06 (99.34 kg, 157.48 cm) aa5 MDM: 17:13 Patient medically screened. madyson 19:45 Differential diagnosis: bowel obstruction, diverticulitis, Hepatitis, non-specific abd madyson pain, pancreatitis, Peptic Ulcer Disease, urinary tract infection. Data reviewed: vital signs, nurses notes, lab test result(s), radiologic studies, CT scan. Consideration of Admission/Observation Patient was admitted/placed on observation. Escalation of care including admission/observation considered. Management of patient was discussed with the following: Paper Rewinder Operator: dr aide serrano. I considered the following discharge prescriptions or medication management in the emergency department Medications were administered in the Emergency Department. See MAR. Independent interpretation of the following test(s) in the Emergency Department EKG: See my EKG interpretation above CT Scan: My interpretation is ct abd pelvis. Test considered but Not performed: Ultrasound no abd usg. Historians other than the Patient: patient , good historian. Care significantly affected by the following chronic conditions: Hypertension, Obesity, depression, gerd, increased qt. Counseling: I had a detailed discussion with the patient and/or guardian regarding the historical points, exam findings, and any diagnostic results supporting the discharge/admit diagnosis, lab results, radiology results. 07/16 17:13 Order name: CBC with Diff; Complete Time: 18:42 madyson 07/16 17:13 Order name: CMP; Complete Time: 18:42 madyson 07/16 17:13 Order name: Lipase; Complete Time: 18:42 madyson 07/16 17:13 Order name: Test, Urine; Complete Time: 18:42 madyson 07/16 17:13 Order name: Urinalysis w/ reflexes; Complete Time: 18:42 madyson 07/16 19:40 Order name: Lactate w/ 2H reflex if indic. madyson 07/16 20:41 Order name: CBC with Automated Diff EDMS 07/16 20:41 Order name: CBC with Automated Diff EDMS 07/16 20:41 Order name: CBC with Automated Diff EDMS 07/16 20:41 Order name: CBC with Automated Diff EDMS 07/16 20:41 Order name: Comprehensive Metabolic Panel EDMS 07/16 20:41 Order name: Comprehensive Metabolic Panel EDMS 07/16 20:41 Order name: Comprehensive Metabolic Panel EDMS 07/16 20:41 Order name: Comprehensive Metabolic Panel EDMS 07/16 20:41 Order name: Magnesium EDMS 07/16 20:41 Order name: Magnesium EDMS 07/16 20:41 Order name: Magnesium EDMS 07/16 20:41 Order name: Magnesium EDMS 07/16 17:21 Order name: CT Abd/Pelvis - IV Contrast Only; Complete Time: 19:37 [facility] 07/16 20:41 Order name: CONS Physician Consult EDMS 07/16 17:13 Order name: IV Saline Lock; Complete Time: 18:16 madyson 07/16 17:13 Order name: Labs collected and sent; Complete Time: 18:16 [facility] Administered Medications: 17:35 Not Given (Duplicate Order): ondansetron 4 mg IVP once; over 2 minutes madyson 18:00 Drug: NS 0.9% IV 1000 ml IV at 1 bolus Per protocol; 1000 mL bolus Route: IV; Rate: 1 cm10 bolus; Site: left forearm; 18:00 Drug: Famotidine IVP 20 mg IVP once; dilute with 10 mL 0.9% NaCl; give over 2 minutes cm10 Route: IVP; Site: left forearm; 18:00 Drug: fentaNYL (PF) IVP 25 mcg IVP once Route: IVP; Site: left forearm; cm10 19:50 Drug: Piperacillin-Tazobactam IVPB 3.375 grams IVPB once over 60 mins; (mix in NS 100 ha1 mL) Route: IVPB; Infused Over: 60 mins; Site: left forearm; 21:21 Follow up: Response: No adverse reaction; IV Status: Completed infusion; IV Intake: ha1 100ml 19:50 Drug: NS 0.9% IV 1000 ml IV at 1 bolus Per protocol; 1000 mL bolus Route: IV; Rate: 1 ha1 bolus; Site: left forearm; 21:21 Follow up: Response: No adverse reaction; IV Status: Infusion continued; IV Intake: ha1 600ml 19:52 Drug: Promethazine IM 25 mg IM once Route: IM; Site: right ventrogluteal; ha1 21:22 Follow up: Response: No adverse reaction ha1 21:10 Drug: fentaNYL (PF) IVP 25 mcg IVP once Route: IVP; Site: left forearm; ha1 21:22 Follow up: Response: No adverse reaction; Pain is decreased; RASS: Alert and Calm (0) ha1 Disposition Summary: 07/16/23 19:54 Hospitalization Ordered Notes: Hospitalization Status: Inpatient Admission madyson Location: Telemetry/MedSurg (Inpatient) madyson Condition: Fair madyson Problem: new madyson Symptoms: have improved madyson Bed/Room Type: [facility] Room Assignment: [facility](07/16/23 20:51) Provider: Jazmine Dumas(07/16/23 21:15) madyson Diagnosis - Abdominal tenderness - hx gastric bypass madyson - Nausea madyson - Ileus, unspecified madyson - Obesity, unspecified madyson Forms: - Medication Reconciliation Form madyson - SBAR form madyson - Leadership Thank You Letter madyson Signatures: Dispatcher [employer] EDEliot Ziegler MD MD cha Calderon, Audri, RN RN aa5 Lizzy Collazo RN RN Meg Chauhan RN RN ha1 Joaquina Mai RN RN cm10 Corrections: (The following items were deleted from the chart) 17:27 17:22 Abdomen Limited+US.RAD.BRZ ordered. EDWI EDMS 20:51 19:54 [facility] 21:15 19:54 Jazmine Dumas cha madyson
--- NOTE | 2023-07-16 19:55 | ER ---
Nurse's Notes [facility] Name: Vanessa Gonzalez Age: 47 yrs Sex: Female : 1975 Arrival Date: 07/16/2023 Time: 17:08 Bed 19 Private MD: Diagnosis: Abdominal tenderness-hx gastric bypass;Nausea;Ileus, unspecified;Obesity, unspecified Presentation: 07/16 17:16 Chief complaint: Patient states: LUQ pain x 1 week ago, got worse 2-3 days ago and now aa5 radiating to LLQ and around to back. Pt reports intermittent nausea, denies vomiting. Coronavirus screen: nausea. Ebola Screen: Patient denies travel to an Ebola-affected area in the 21 days before illness onset. Initial Sepsis Screen: Does the patient meet any 2 criteria? HR > 90 bpm. Does the patient have a suspected source of infection? No. Patient's initial sepsis screen is negative. Risk Assessment: Do you want to hurt yourself or someone else? Patient reports no desire to harm self or others. Onset of symptoms was June 2023. 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 - Social history:: Smoking status: Patient denies any tobacco usage or history of. Screenin:19 [facility] ED Fall Risk Assessment (Adult) History of falling in the last 3 months, cm10 including since admission No falls in past 3 months (0 pts) Confusion or Disorientation No (0 pts) Intoxicated or Sedated No (0 pts) Impaired Gait No (0 pts) Mobility Assist Device Used No (0 pt) Altered Elimination No (0 pt) Score/Fall Risk Level 0 - 2 = Low Risk Oriented to surroundings, Maintained a safe environment, Hourly rounding (assess needs \T\ fall precautionary measures) done. Abuse screen: Denies threats or abuse. Denies injuries from another. Nutritional screening: No deficits noted. Tuberculosis screening: No symptoms or risk factors identified. Assessment: 18:17 General: Appears in no apparent distress. uncomfortable, Behavior is calm, cooperative. cm10 Pain: Complains of pain in left upper quadrant and left lower quadrant Quality of pain is described as sharp, shooting, stabbing. Neuro: No deficits noted. Level of Consciousness is awake, alert, obeys commands, Oriented to person, place, time, situation. Respiratory: No deficits noted. Airway is patent Respiratory effort is even, unlabored, Respiratory pattern is regular, symmetrical. GI: Abdomen is Bowel sounds present X 4 quads. Abdomen is tender to palpation in left upper quadrant and left lower quadrant Reports nausea, vomiting. 19:18 General: Appears uncomfortable, Behavior is calm, cooperative. Pain: Complains of pain ha1 in left upper quadrant Pain radiates to back Pain currently is 6 out of 10 on a pain scale. Quality of pain is described as pressure, throbbing. Neuro: Level of Consciousness is awake, alert, obeys commands, Oriented to person, place, time, situation. Cardiovascular: Patient's skin is warm and dry. Respiratory: Airway is patent Respiratory effort is even, unlabored, Respiratory pattern is regular, symmetrical. Derm: Skin is pink, warm \T\ dry. Musculoskeletal: Circulation, motion, and sensation intact. Range of motion: intact in all extremities. 20:20 Reassessment: Patient and/or family updated on plan of care and expected duration. Pain ha1 level reassessed. Patient is alert, oriented x 3, equal unlabored respirations, skin warm/dry/pink. 21:17 Reassessment: Patient and/or family updated on plan of care and expected duration. Pain ha1 level reassessed. Patient is alert, oriented x 3, equal unlabored respirations, skin warm/dry/pink. Vital Signs: 17:16 BP 159 / 117; Pulse 84; Resp 18 S; Temp 97.9(TE); Pulse Ox 100% on R/A; Weight 99.34 kg aa5 (R); Height 5 ft. 2 in. (R); 19:20 BP 143 / 86; Pulse 72; Resp 18 S; Pulse Ox 99% on R/A; ha1 20:20 BP 147 / 92; Pulse 75; Resp 18 S; Pulse Ox 100% on R/A; ha1 21:17 BP 162 / 92; Pulse 76; Resp 18 S; Pulse Ox 100% on R/A; ha1 17:16 Body Mass Index 40.06 (99.34 kg, 157.48 cm) aa5 ED Course: 17:11 Patient arrived in ED. mg5 17:13 Eliot Hair MD is Attending Physician. madyson 17:16 Arm band placed on. aa5 17:17 Triage completed. aa5 17:28 Joaquina Mai, RN is Primary Nurse. cm10 17:56 Inserted saline lock: 22 gauge in left forearm, using aseptic technique. Blood ds4 collected. Missed attempt(s): 22 gauge in right forearm. Bleeding controlled, band aid applied, catheter tip intact. 19:02 Patient has correct armband on for positive identification. Bed in low position. Call ha1 light in reach. Side rails up X 1. 19:07 CT Abd/Pelvis - IV Contrast Only In Process Unspecified. EDMS 19:53 Manuel Martínez MD is Hospitalizing Provider. [facility] 19:53 Jazmine Dumas MD is Hospitalizing Provider. [facility] 21:15 Jazmine Dumas MD is Hospitalizing Provider. [facility] 21:18 No provider procedures requiring assistance completed. Patient admitted, IV remains in ha1 place. 21:19 Provided Education on: need for admit . ha1 21:21 Lactate w/ 2H reflex if indic. Sent. ha1 21:22 Meg Esposito, RN is Primary Nurse. ha Administered Medications: 17:35 Not Given (Duplicate Order): ondansetron 4 mg IVP once; over 2 minutes madyson 18:00 Drug: NS 0.9% IV 1000 ml IV at 1 bolus Per protocol; 1000 mL bolus Route: IV; Rate: 1 cm10 bolus; Site: left forearm; 18:00 Drug: Famotidine IVP 20 mg IVP once; dilute with 10 mL 0.9% NaCl; give over 2 minutes cm10 Route: IVP; Site: left forearm; 18:00 Drug: fentaNYL (PF) IVP 25 mcg IVP once Route: IVP; Site: left forearm; cm10 19:50 Drug: Piperacillin-Tazobactam IVPB 3.375 grams IVPB once over 60 mins; (mix in NS 100 ha1 mL) Route: IVPB; Infused Over: 60 mins; Site: left forearm; 21:21 Follow up: Response: No adverse reaction; IV Status: Completed infusion; IV Intake: ha1 100ml 19:50 Drug: NS 0.9% IV 1000 ml IV at 1 bolus Per protocol; 1000 mL bolus Route: IV; Rate: 1 ha1 bolus; Site: left forearm; 21:21 Follow up: Response: No adverse reaction; IV Status: Infusion continued; IV Intake: ha1 600ml 19:52 Drug: Promethazine IM 25 mg IM once Route: IM; Site: right ventrogluteal; ha1 21:22 Follow up: Response: No adverse reaction ha1 21:10 Drug: fentaNYL (PF) IVP 25 mcg IVP once Route: IVP; Site: left forearm; ha1 21:22 Follow up: Response: No adverse reaction; Pain is decreased; RASS: Alert and Calm (0) ha1 Medication: 21:19 VIS not applicable for this client. ha1 Intake: 21:21 IV: 600ml; Total: 600ml. ha1 21:21 IV: 100ml; Total: 700ml. ha1 Outcome: 19:54 Decision to Hospitalize by Provider. madyson 21:18 Admitted to Med/surg accompanied by tech, via wheelchair, room 209, Report called to diana Wilkins RN 21:18 Condition: stable 21:18 Discharge instructions given to patient, Instructed on the need for admit, Demonstrated understanding of instructions, 21:22 Patient left the ED. [facility] Signatures: Dispatcher [employer] EDAL Eliot Hair MD MD cha Calderon, Audri RN RN Beto Grubbs ds4 Meg Esposito RN RN ha1 Martinez, Clarissa, RN RN Alberta Sanders mg5
[2023-07-16] MEDS ORDERED: PROMETHAZINE INJ 25 MG/ML AMP ONE (19:59)
[2023-07-16] MEDS ORDERED: PIPERACIL/TAZO 3.375 GM VIAL IV ONE (19:59)
[2023-07-16] MEDS ORDERED: NA CHLORIDE 0.9% 100 ML ONE (20:00)
--- NOTE | 2023-07-16 20:29 | P.HP ---
Certification for Inpatient Patient admitted to: Inpatient With expected LOS: <2 Midnights Patient will require the following post-hospital care: None Practitioner: I am a practitioner with admitting privileges, knowledge of patient current condition, hospital course, and medical plan of care. Services: Services provided to patient in accordance with Admission requirements found in Title 42 Section 412.3 of the Code of Federal Regulations Patient History Date of Service: 07/16/23 History of Present Illness: 47-year-old female with a past medical history of depression, GERD, hyperlipidemia, hypertension, permanent pacemaker, prolonged QT, rheumatoid arthritis, TIA, gastric bypass presents to the emergency room with abdominal pain. She reports abdominal pain is worse today. She reports abdominal abdominal pain located left upper quadrant, left lower quadrant. She reports associated nausea vomiting today. She denies fever, chest pain, shortness of breath, diarrhea, rectal bleeding. Vital signs BP 159 / 117; Pulse 84; Resp 18 S; Temp 97.9(TE); Pulse Ox 100% morbid obesity BMI 40.06 plan to admit for ileus, abdominal pain, nausea vomiting. Laboratory evaluation CBC unremarkable CMP mild hyponatremia 134, BUN and creatinine stable, transaminitis AST 79 ALT 123, alk phos elevated 205, UA negative CT of the abdomen pelvis IMPRESSION: Mild dilatation of a loop of jejunum within the left upper quadrant presumably a focal ileus If the patient's symptoms persist then a followup plain film abdominal series would be recommended, Dr. Nova consulted. Allergies ketorolac Allergy (Verified 10/23/18 21:46) Hives/Rash, SOB morphine Allergy (Verified 10/23/18 21:46) Shortness of breath Home Medications: Evolocumab [Repatha Syringe] 1 dose SQ SEECOM 08/23/18 Amlodipine Besylate [Norvasc] 5 mg PO DAILY 10/23/18 Alprazolam [Xanax Xr] 0.5 mg PO DAILY 09/09/21 Nebivolol HCl [Bystolic] 5 mg PO BID 09/09/21 Pantoprazole Sodium [Protonix] 40 mg DAILY 09/09/21 predniSONE [Prednisone] 5 mg PO DAILY 01/03/23 - Past Medical/Surgical History Diabetic: No -: Hypertension -: Hyperlipidemia -: GERD -: Diverticulosis -: Depression with anxiety -: Prolonged QT syndrome -: Obesity -: Fatty liver -: Vitamin-D deficiency -: chronic pancreatitis -: Hysterectomy-2013 -: 2x [id number]/2011 -: Carpal Tunnel-2000 -: Gall bladder-2005 -: Lap Band-2011 Psychosocial/ Personal History: She is . Has 3 children. 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 - Family History Mother -: Heart disease, Hypertension, Diabetes, Stroke, Other (see notes) Notes: High cholesterol Father -: Heart disease, Hypertension, Diabetes Brother -: Hypertension Notes: Liver Cirrhosis Sister -: Stroke Notes: High BP, [place] Leukemia - Social History Alcohol use: No CD- Drugs: No Caffeine use: Yes Review of Systems 10-point ROS is otherwise unremarkable Physical Examination - Physical Exam General: Alert, In no apparent distress, Oriented x3 HEENT: Atraumatic, Normocephalic Neck: Supple, 2+ carotid pulse no bruit Respiratory: Clear to auscultation bilaterally, Normal air movement Cardiovascular: No edema, Normal pulses, Regular rate/rhythm Capillary refill: <2 Seconds Gastrointestinal: Hypoactive, Tenderness (Left upper quadrant, left lower quadrant, epigastric tenderness) Musculoskeletal: No clubbing, No swelling Integumentary: No rashes, No breakdown Neurological: Normal gait, Normal speech, Normal strength at 5/5 x4 extr - Studies Laboratory Data (last 24 hrs) 07/16/23 07/16/23 17:51 17:51 WBC 9.60 Hgb 12.8 Hct 37.9 Plt Count 241 Sodium 134 L Potassium 3.5 BUN 17 Creatinine 0.54 L Glucose 94 Total Bilirubin 0.5 AST 79 H ALT 123 H Alkaline Phosphatase 205 H Lipase 63 Assessment and Plan - Plan Assessment and plan ileus acute Mild hyponatremia Transaminitis History of gastric bypass History of lap band reversal Hernia surgery prolonged QT rheumatoid arthritis Morbid obesity BMI 40 [facility]IA [facility] and [facility] ileus acute History of gastric bypass History of lap band reversal Hernia surgery UA negative CT of the abdomen pelvis IMPRESSION: Mild dilatation of a loop of jejunum within the left upper quadrant presumably a focal ileus Surgery consult, Dr. Nova consulted.n.p.o. As needed analgesics, as needed antiemetics Hyponatremia IV fluids, trend electrolytes Transaminitis transaminitis AST 79 ALT 123, alk phos elevated 205 prolonged QT Telemetry, avoid medications that cause prolonged QT Fall limiting lower rheumatoid arthritis TIA Morbid obesity BMI 40 Resume appropriate home meds Diet n.p.o. after midnight full code DVT prophylaxis Discharge Plan: Home Plan to discharge in: 48 Hours - Advance Directives Does patient have a Living Will: No Does patient have a Durable POA for Healthcare: No - Code Status/Comfort Care Code Status: Full Code Physician Review: Patient Assessed, Agree with Above Assessment and Plan Critical Care: No Time Spent Managing Pts Care (In Minutes): 50
[2023-07-16] MEDS ORDERED: PROMETHAZINE INJ 25 MG/ML AMP IV PRN (20:35)
[2023-07-16] MEDS ORDERED: SODIUM CHLORIDE 0.9% 10ML INJ IV PRN (20:35)
[2023-07-16] MEDS ORDERED: METOCLOPRAMIDE 10 MG/2mL INJ IV PRN (20:35)
[2023-07-16] MEDS: NA CHLORIDE 0.9% 1,000 ML IV SCH (22:18)
[2023-07-16] MEDS: PANTOPRAZOLE 40 MG INJ IVP SCH (22:18)
[2023-07-16 22:24] VITALS: BMI 40.0
[2023-07-17 02:43] LABS: Hematocrit 37.3 % (36.0-45.0); Lymphocytes % 36.5 % (15.3-44.8); MCV 80.1 fL (80-100); MPV 7.9 fL (7.6-11.3); Platelets 232 thou/uL (152-406); RBC Red Blood Cell Count 4.66 M/uL (3.86-4.86)
[2023-07-17 02:58] LABS: Albumin 3.4 g/dL (3.4-5.0); Bilirubin Total 0.8 mg/dL (0.2-1.0); Magnesium 2.3 mg/dL (1.6-2.4); Potassium 3.4 mEq/L (3.5-5.1); Protein, Total 7.5 g/dL (6.4-8.2)
[2023-07-17] MEDS ORDERED: POTASSIUM CL SA 10 MEQ TAB PO ONE (09:00)
[2023-07-17] MEDS: FENTANYL CITR 100 MCG/2 ML IV PRN ×2 (10:09→23:46)
[2023-07-17] MEDS: CEFTRIAXONE 1,000 MG in NA CHLORIDE 0.9% 50 ML IVPB SCH (10:09)
[2023-07-17] MEDS: METRONIDAZOLE 500mg IVPB 500 MG/100 ML BAG IV SCH ×2 (10:09→16:38)
[2023-07-17] MEDS: PANTOPRAZOLE 40 MG INJ IVP SCH ×2 (10:10→20:10)
[2023-07-17] MEDS: NEBIVOLOL HCL 5 MG TAB PO SCH ×2 (10:11→20:13)
--- NOTE | 2023-07-17 11:25 | P.PN ---
Subjective Date of Service: 07/17/23 Chief Complaint: Abdominal pain Patient is 47 years of age 3 of previous Lap-Band revisions admitted with abdominal pain left upper quadrant radiating to the back prior history of abdominal pain denies any fever chills or diarrhea prior history of bowel obstruction she is a revision of her Lap-Band scheduled to see a bariatric surgeon for a barium swallow Review of Systems Unremarkable Physical Examination - Vital Signs Temperature: 97.1 F Blood Pressure: 137/86 Pulse: 63 Respirations: 18 Pulse Ox (%): 97 - Physical Exam General: Alert, In no apparent distress, Oriented x3 Neck: Supple Respiratory: Clear to auscultation bilaterally Cardiovascular: No edema, Regular rate/rhythm, Normal S1 S2 Gastrointestinal: Normal bowel sounds, Soft and benign, Non-distended - Studies Laboratory Data (last 24 hrs) 07/16/23 07/16/23 17:51 17:51 WBC 9.60 Hgb 12.8 Hct 37.9 Plt Count 241 Sodium 134 L Potassium 3.5 BUN 17 Creatinine 0.54 L Glucose 94 Total Bilirubin 0.5 AST 79 H ALT 123 H Alkaline Phosphatase 205 H Lipase 63 Assessment And Plan - Current Problems (Diagnosis) (1) Small bowel obstruction Current Visit: Yes Status: Acute Plan: Patient is 47 years of age admitted with small bowel obstruction she has had previous revision for lap band eluding a hernia surgery admitted with abdominal pain CT scan of the abdomen Mild dilatation of a loop of jejunum within the left upper quadrant presumably a focal ileus . If the patient's symptoms persist then a followup plain film abdominal series would be recommended Start on IV antibiotics IV fluids pain relief consult general surgery Labs reviewed mild hypokalemia Physician Review: Patient Assessed, Agree with Above Assessment and Plan
[2023-07-17] MEDS: NA CHLORIDE 0.9% 1,000 ML IV SCH (12:00)
[2023-07-17 21:00] VITALS: O2SAT 98
[2023-07-17] MEDS: AMLODIPINE 5 MG TAB PO SCH (23:08)
[2023-07-18 03:20] LABS: Absolute Lymphocytes (CBC) 2.4 K/uL (0.7-4.9); Hematocrit 37.2 % (36.0-45.0); Lymphocytes % 36.9 % (15.3-44.8); MCV 80.8 fL (80-100); MPV 8.2 fL (7.6-11.3); Platelets 223 thou/uL (152-406)
[2023-07-18 03:45] LABS: Albumin 3.5 g/dL (3.4-5.0); Bilirubin Total 0.7 mg/dL (0.2-1.0); Magnesium 2.1 mg/dL (1.6-2.4); Potassium 3.5 mEq/L (3.5-5.1); Protein, Total 7.4 g/dL (6.4-8.2)
[2023-07-18] MEDS: FENTANYL CITR 100 MCG/2 ML IV PRN (05:51)
--- NOTE | 2023-07-18 08:18 | RAD REPORT ---
EXAM DESCRIPTION: RAD - Abdomen 1 View (KUB) - 07/18/2023 7:04 am CLINICAL HISTORY: SBO COMPARISON: No comparisons TECHNIQUE: Single AP view of the abdomen. FINDINGS: Nonobstructive bowel gas pattern. However there is relative paucity of bowel gas, nonspeci fic. No air-fluid levels, free air, or pneumatosis. No suspicious calcifications. No significant bony abnormality. IMPRESSION: Relative paucity of bowel gas, a nonspecific finding. No other acute findings.
[2023-07-18] MEDS: NEBIVOLOL HCL 5 MG TAB PO SCH (08:39)
[2023-07-18] MEDS: AMLODIPINE 5 MG TAB PO SCH (08:39)
[2023-07-18] MEDS: CEFTRIAXONE 1,000 MG in NA CHLORIDE 0.9% 50 ML IVPB SCH (08:40)
[2023-07-18] MEDS: PANTOPRAZOLE 40 MG INJ IVP SCH (08:40)
[2023-07-18] MEDS: METRONIDAZOLE 500mg IVPB 500 MG/100 ML BAG IV SCH ×3 (08:41→18:00)
[2023-07-18] MEDS ORDERED: ALPRAZOLAM 0.5 MG TABLET PO SCH (09:00)
[2023-07-18] MEDS ORDERED: POTASSIUM CL SA 10 MEQ TAB PO ONE (09:00)
[2023-07-18 09:43] LABS: Potassium 3.8 mEq/L (3.5-5.1)
[2023-07-18] MEDS: MAGNES/ALUMIN/SIMET 30ML UCUP PO PRN ×2 (11:42→18:13)
[2023-07-18 17:08] VITALS: BP 137/86; TEMP 96.8
[2023-07-18] MEDS ORDERED: AMOX/K CLAV 875 MG TAB PO SCH (21:00)
--- NOTE | 2023-07-19 09:37 | P.DS ---
Admission Date: 07/16/23 Discharge Date: 07/18/23 Disposition: ROUTINE DISCHARGE Discharge Condition: GOOD Reason for Admission: Abdominal pain - Problems (1) Small bowel obstruction Status: Acute Brief History of Present Illness: Patient is 47 years of age admitted with small bowel obstruction abdominal pain Hospital Course: Patient is 47 years of age admitted with abdominal pain left upper quadrant radiating to the back was found to have small bowel obstruction history seeing a bariatric surgeon history of lap band before. To the hospital treated with IV fluid antibiotics uncomplicated stay was seen by Dr. Nova she is scheduled to have a barium swallow by the bariatric surgeon advised her vital signs were also stable subsequent KUB did not show any progression patient was discharged in satisfactory condition at the time of discharge patient alert oriented responsive cooperative vital signs stable minimal abdominal tenderness positive bowel sounds Labs chemistries reviewed Vital Signs/Physical Exam: Temp Pulse Resp BP Pulse Ox 96.8 F 63 15 137/86 99 07/18/23 16:00 07/18/23 16:00 07/18/23 16:00 07/18/23 16:00 07/18/23 16:00 Laboratory Data at Discharge: WBC 6.50 thou/uL (4.3-10.9) 07/18/23 02:12 Hgb 12.8 g/dL (12.0-15.0) 07/18/23 02:12 Hct 37.2 % (36.0-45.0) 07/18/23 02:12 Plt Count 223 thou/uL (152-406) 07/18/23 02:12 Sodium 138 mEq/L (136-145) 07/18/23 09:00 Potassium 3.8 mEq/L (3.5-5.1) 07/18/23 09:00 BUN 11 mg/dL (7-18) 07/18/23 09:00 Creatinine 0.66 mg/dL (0.55-1.02) 07/18/23 09:00 Glucose 126 mg/dL (74-106) H 07/18/23 09:00 Magnesium 2.1 mg/dL (1.6-2.4) 07/18/23 02:12 Total Bilirubin 0.7 mg/dL (0.2-1.0) 07/18/23 02:12 AST 80 U/L (15-37) H 07/18/23 02:12 ALT 122 U/L (13-56) H 07/18/23 02:12 Alkaline Phosphatase 183 U/L (45-117) H 07/18/23 02:12 Lipase 63 U/L (13-75) 07/16/23 17:51 Home Medications: Evolocumab [Repatha Syringe] 1 dose SQ SEECOM 08/23/18 Amlodipine Besylate [Norvasc] 5 mg PO DAILY 10/23/18 Alprazolam [Xanax Xr] 0.5 mg PO DAILY 09/09/21 Nebivolol HCl [Bystolic] 5 mg PO BID 09/09/21 Pantoprazole Sodium [Protonix] 40 mg DAILY 09/09/21 predniSONE [Prednisone] 5 mg PO DAILY 01/03/23 Amox/Clavulanate [Augmentin 875-125 Tab] 875 mg PO BID 4 Days #8 tab 07/18/23 New Medications: Amox/Clavulanate [Augmentin 875-125 Tab] 875 mg PO BID 4 Days #8 tab Physician Discharge Instructions: PROBLEM: Small bowel obstruction GOAL: Clear understanding of disease process INSTRUCTIONS: Diet: Regular Activity: Ad andre IMMUNIZATION Influenza Vaccine Indicated: No Influenza Vaccine Given: Date Given: Pneumonia Vaccine Indicated: No Pneumonia Vaccine Given: Date Given: Diet: Regular Activity: Ad andre Followup: Rehan Davila DO [Primary Care Provider] -
== END 2023-07-18 19:25 | disposition home or self-care (01) | DRG 389 ==
LOC: ER 17:08 → 2ND 20:34
PROVIDERS: ADMIT Internal Medicine Sleep Medicine; ATTEND Internal Medicine Sleep Medicine
DX: K56.699 Other intestinal obstruction unspecified as to partial versus complete obstruction (principal); E87.1 Hypo-osmolality and hyponatremia; Z68.41 Body mass index [BMI] 40.0-44.9, adult; E66.01 Morbid (severe) obesity due to excess calories; I10 Essential (primary) hypertension; E78.00 Pure hypercholesterolemia, unspecified; M06.9 Rheumatoid arthritis, unspecified; K21.9 Gastro-esophageal reflux disease without esophagitis; R74.01 Elevation of levels of liver transaminase levels; Z88.5 Allergy status to narcotic agent; Z88.8 Allergy status to other drugs, medicaments and biological substances; Z90.49 Acquired absence of other specified parts of digestive tract; Z86.73 Personal history of transient ischemic attack (TIA), and cerebral infarction without residual deficits; Z79.52 Long term (current) use of systemic steroids; Z98.84 Bariatric surgery status; Z95.810 Presence of automatic (implantable) cardiac defibrillator; Z90.710 Acquired absence of both cervix and uterus; Z79.899 Other long term (current) drug therapy
CPT/HCPCS: 36415; 74018; 74177; 80048; 80053; 81003; 81025; 83605; 83690; 83735; 85025; 96365; 96366; 96372; 96375; 99285; C9113; J0696; J2405; J2543; J2550; J3010; J7030; Q9967

== ENCOUNTER 2024-07-13 07:43 | Observation (INO) | payer BC, OTHER ==
[2024-07-13] MEDS ORDERED: ASPIRIN 81 MG CHEWABLE TABLET ONE (07:59)
[2024-07-13] MEDS ORDERED: NA CHLORIDE 0.9% 1,000 ML ONE ×2 (08:00→14:18)
[2024-07-13] MEDS ORDERED: FOLIC ACID 5 MG/ML VIAL ONE (08:00)
[2024-07-13] MEDS ORDERED: NA CHLORIDE 0.9% 500 ML ONE (08:00)
[2024-07-13 08:37] LABS: PT Prothrombin Time 11.3 SECONDS (9.4-12.5); Protime INR 1.01
[2024-07-13 08:42] LABS: Absolute Basophils 0.1 K/uL (0-0.5); Absolute Eosinophils 0.2 K/uL (0-0.5); Absolute Lymphocytes (CBC) 4.2 K/uL (0.7-4.9); Absolute Monocytes 0.8 K/uL (0.1-1.3); Basophils % 0.8 % (0-1.3); Eosinophils % 1.5 % (0-4.4); Hematocrit 42.5 % (36.0-45.0); Hemoglobin 13.7 g/dL (12.0-15.0); Lymphocytes % 37.3 % (15.3-44.8); MCH 26.8 pg (27.0-35.0); MCHC 32.3 g/dL (32.0-36.0); MCV 82.9 fL (80-100); MPV 8.9 fL (7.6-11.3); Monocytes % 6.9 % (3.3-12.3); Neutrophils % 53.5 % (41.7-73.7); Platelets 258 thou/uL (152-406); RBC Red Blood Cell Count 5.13 M/uL (3.86-4.86); Red Cell Distribution Width 14.3 % (12.1-15.2)
--- NOTE | 2024-07-13 08:42 | RAD REPORT ---
EXAMINATION: ONE VIEW CHEST XR CLINICAL INDICATION: CHEST PAIN TECHNIQUE: Frontal chest projection is submitted. Examination is limited by patient positioning and t echnique. COMPARISON: 01/03/2023 FINDINGS: The lungs are well inflated and clear. The heart is normal in size. No displaced fractures identified . Multilead pacer/defibrillator device present. IMPRESSION: No acute intrathoracic abnormalities.
--- NOTE | 2024-07-13 08:43 | RAD REPORT ---
EXAM: CT brain without contrast HISTORY: DIZZINESS COMPARISON: 06/11/2020 TECHNIQUE: Multiple contiguous axial images were obtained and a CT of the brain without contrast. Sag ittal and coronal reformats were performed. One or more of the following dose reduction techniques were used: Automated exposure control, adjust ment of the mA and/or kV according to patient size, and/or iterative reconstruction. FINDINGS: No evidence of hydrocephalus, intracranial hemorrhage, or extra-axial fluid collection. The brain is normal in morphology. No evidence of midline shift or areas of brain edema. The calvarium is intact. Mild polypoid mucosal thickening noted in the paranasal sinuses. IMPRESSION: No evidence of acute intracranial abnormality.
--- NOTE | 2024-07-13 08:45 | RAD REPORT ---
EXAMINATION: CTA HEAD CLINICAL INDICATION: pain TECHNIQUE: Axial CT images were obtained through the head after intravenous contrast utilizing angiog raphic protocol with 3D post-processing (maximum intensity projection images, volume rendered images and/or shaded surface rendered images). One or more of the following dose reduction technique s were used: Automated exposure control, adjustment of the mA and/or kV according to patient size, and/or iterative reconstruction. Unless otherwise specified, incidental findings do not require dedic ated imaging follow-up. COMPARISON: 07/13/2024, 06/11/2020 FINDINGS: ICA: The petrous, cavernous, and supraclinoid segments of the bilateral internal carotid arteries are normal. The ophthalmic artery origins are visualized and normal. The posterior communicating arteries are patent. JOSE ARMANDO: Anterior cerebral arteries are normal bilaterally. The anterior communicating artery is patent. MCA: Middle cerebral arteries are normal bilaterally. INSPECTOR FIREARMS: Posterior cerebral arteries are normal bilaterally. Vertebrobasilar: The vertebral arteries are patent. The basilar artery is normal in appearance. The l eft vertebral artery appears dominant. 3D images confirm these findings. IMPRESSION: No significant flow abnormality is identified.
--- NOTE | 2024-07-13 08:48 | RAD REPORT ---
EXAMINATION: CTA NECK CLINICAL INDICATION: PAIN TECHNIQUE: Axial CT images were obtained from the aortic arch to the skull base after intravenous con trast utilizing angiographic protocol with 3D post-processing (maximum intensity projection images, volume rendered images and/or shaded surface rendered images). One or more of the following dose redu ction techniques were used: Automated exposure control, adjustment of the mA and/or kV according to patient size, and/or iterative reconstruction. Unless otherwise specified, incidental findings do not require dedicated imaging follow-up. COMPARISON: No prior exam. FINDINGS: AORTA: The imaged aortic arch is normal. CCA: The common carotid arteries are patent and normal in caliber. ICA/ECA: Bilateral internal and external carotid arteries are patent. There is no significant interna l carotid artery stenosis. VERTEBRAL: The cervical vertebral arteries are patent. The vertebral arteries are codominant. SOFT TISSUE: Small nodule inferior right lobe of the thyroid. The visualized lung apices are clear. 3D images confirm these findings. IMPRESSION: No significant flow abnormality of the neck vessels is identified. NASCET criteria used. Mild 0-49% stenosis Moderate 50-69% stenosis Severe 70-99% stenosis
[2024-07-13 08:58] LABS: Albumin 3.4 g/dL (3.4-5.0); Albumin/Globulin Ratio 0.7 (1.1-1.8); Anion Gap 6.6 mEq/L (5.0-15.0); Bilirubin Direct 0.2 mg/dL (0-0.2); Bilirubin Indirect, Calculated 0.3 mg/dL (0.2-0.8); Bilirubin Total 0.5 mg/dL (0.2-1.0); Globulin 4.7 g/dL (2.3-3.5); Magnesium 2.2 mg/dL (1.6-2.4); Potassium 3.6 mEq/L (3.5-5.1); Protein, Total 8.1 g/dL (6.4-8.2); Troponin High Sensitivity 6.4 pg/mL (<58.9)
[2024-07-13 09:15] LABS: Specific Gravity > 1.030 (1.005-1.030); Urine Bilirubin NEGATIVE (Negative); Urine Blood Negative (Negative); Urine Clarity Clear (Clear); Urine Color Colorless (Yellow); Urine Glucose NEGATIVE (Negative); Urine Ketones NEGATIVE (Negative); Urine Microscopic Reflex YN NO UMIC; Urine Nitrite NEGATIVE (Negative); Urine Protein NEGATIVE (Negative); Urine Urobilinogen Normal (Normal)
[2024-07-13 09:17] LABS: Specific Gravity > 1.030 (1.005-1.030)
[2024-07-13] MEDS ORDERED: ACETAMINOPHEN 500 MG TAB ONE (11:40)
--- NOTE | 2024-07-13 11:46 | ER ---
Nurse's Notes [facility] Name: Vanessa Gonzalez Age: 48 yrs Sex: Female : 1975 Arrival Date: 07/13/2024 Time: 07:43 Bed 19 Private MD: Diagnosis: Chest pain, unspecified;Essential (primary) hypertension;Presence of cardiac pacemaker Presentation: 07/13 07:49 Coronavirus screen: At this time, the client does not indicate any symptoms associated iw with coronavirus-19. Ebola Screen: No symptoms or risks identified at this time. Initial Sepsis Screen: Does the patient meet any 2 criteria? No. Patient's initial sepsis screen is negative. Does the patient have a suspected source of infection? No. Patient's initial sepsis screen is negative. Risk Assessment: Do you want to hurt yourself or someone else? Patient reports no desire to harm self or others. Onset of symptoms was July 12, 2024. 07:49 Acuity: ANDREW 3 iw 07:49 Method Of Arrival: Ambulatory iw 08:00 Chief complaint: Patient states: reports headache and chest pain that began last night. qf Triage Assessment: 08:10 General: Appears in no apparent distress. uncomfortable, well groomed. General: qf Behavior is calm, cooperative, appropriate for age. Pain: Complains of pain in Headache. Cardiovascular: Reports chest pain. SYSTEMS PLANNER: 07:57 LMP N/A - Hysterectomy, Not qf Historical: - Allergies: 07:51 Ketorolac; iw 07:51 Morphine; iw 09:12 ANYTHING THAT PROLONGS QT; qf 09:12 Benadryl; qf - Home Meds: 09:12 amlodipine 5 mg oral tablet for hypertension [Active]; Bystolic 10 mg oral tablet 1 tab qf daily for hypertension [Active]; Protonix 40 mg Oral TbEC 1 tab once daily for gastroesophageal reflux disease [Active]; Xanax 0.5 mg Oral tab 1 tab daily for anxiety [Active]; Repatha Syringe 140 mg/mL subcutaneous syrg 1 mL every 2 wks [Active]; Cimzia 400 mg/2 mL (200 mg/mL x 2) subcutaneous Syringe Kit every 4 weeks for rheumatoid arthritis [Active]; - PMHx: 07:51 Depression; Anxiety; GERD; High Cholesterol; Hypertension; Pacemaker; prolonged QT iw interval; Rheumatoid Arthritis; TIA; - PSHx: 07:51 padmini carpal tunnel (ec); section; Cholecystectomy; Gastric Bypass; iw hysterectomy; Pacemaker/Defibrillator; - Immunization history:: Adult Immunizations up to date. - Infectious Disease History:: Denies. - Family history:: not pertinent. - Social history:: Smoking status: Patient denies any tobacco usage or history of. Screenin:00 [facility] ED Fall Risk Assessment (Adult) History of falling in the last 3 months, qf including since admission No falls in past 3 months (0 pts). [facility] ED Fall Risk Assessment (Adult) Confusion or Disorientation No (0 pts) Intoxicated or Sedated No (0 pts) Impaired Gait No (0 pts) Mobility Assist Device Used No (0 pt) Altered Elimination No (0 pt) Score/Fall Risk Level 0 - 2 = Low Risk. Abuse screen: Denies threats or abuse. Nutritional screening: No deficits noted. Tuberculosis screening: No symptoms or risk factors identified. Assessment: 08:30 Pain: Pain began 1 day ago. qf 10:00 General: Appears in no apparent distress. Behavior is calm, cooperative, appropriate qf for age. Pain: Pain does not radiate. Cardiovascular: Reports chest pain. Cardiovascular: No deficits noted. Respiratory: No deficits noted. 10:14 Pain: Complains of pain in Headache Pain currently is 6 out of 10 on a pain scale. qf 12:06 Reassessment: Patient reported she does not want to stay in hospital, states she will qf follow up with contract writerMD notified. 13:45 Reassessment: No changes from previously documented assessment. Patient and/or family mb9 updated on plan of care and expected duration. Pain level reassessed. Patient is alert, oriented x 3, equal unlabored respirations, skin warm/dry/pink. 15:00 Reassessment: No changes from previously documented assessment. Patient and/or family mb9 updated on plan of care and expected duration. Pain level reassessed. Patient is alert, oriented x 3, equal unlabored respirations, skin warm/dry/pink. 16:00 Reassessment: See [facility] for further charting. mb9 18:09 Reassessment: Patient appears in no apparent distress at this time. Patient transported qf to assigned room. Vital Signs: 07:49 BP 157 / 110; Pulse 82; Resp 18; Temp 97.6; Pulse Ox 100% ; Weight 100.24 kg; Height 5 iw ft. 2 in. ; Pain 5/10; 07:57 BP 167 / 101; Pulse 66; Resp 18; Temp 98.4; Pulse Ox 100% ; Weight 101.15 kg; Height 5 qf ft. 2 in. ; Pain 6/10; 09:25 BP 147 / 97; Pulse 60; Resp 18; Pulse Ox 100% ; qf 09:52 BP 154 / 81; Pulse 60; Resp 18; Pulse Ox 100% on R/A; mb9 12:10 BP 147 / 80; Pulse 60; Resp 16; Temp 98.2; Pulse Ox 99% on R/A; Pain 3/10; qf 14:00 BP 144 / 94; Pulse 63; Resp 18; Pulse Ox 99% on R/A; qf 14:00 BP 139 / 73; Pulse 73; Resp 18; Pulse Ox 99% on R/A; qf 18:10 BP 108 / 54; Pulse 60; Resp 18; Temp 98.4; Pulse Ox 99% on R/A; qf 07:57 Body Mass Index 40.79 (101.15 kg, 157.48 cm) qf 07:49 Pain Scale: Adult iw 07:57 Pain Scale: Adult qf 12:10 Pain Scale: Adult qf ED Course: 07:44 Patient arrived in ED. iw 07:44 Eliot Hair MD is Attending Physician. madyson 07:51 Triage completed. iw 07:52 Arm band placed on. iw 07:55 Rosalinda Valdez, RN is Primary Nurse. db 08:00 Patient has correct armband on for positive identification. Bed in low position. Call qf light in reach. Side rails up X 1. Adult w/ patient. Provided Education on:. Client placed on continuous cardiac and pulse oximetry monitoring. NIBP monitoring applied. care coordinator on. Pulse ox on. NIBP on. Door closed. Visitors limited. Verbal reassurance given. Head of bed. 08:23 Accessed peripheral vein via ultrasound, utilizing dynamic ultrasound technique using mb9 ,sterile technique, per hospital protocol. Clean \T\ dry. Dressing intact. Good blood return. Flushes easily. 20 g right upper arm. 08:33 CT Neck Angio In Process Unspecified. EDMS 08:33 Head angio In Process Unspecified. EDMS 08:33 CT Head Brain wo Cont In Process Unspecified. EDMS 08:36 XRAY Chest (1 view) In Process Unspecified. EDMS 08:36 Primary Nurse role handed off by Rosalinda Valdez, MARIA R qf 08:36 Gulshan Rawls RN is Primary Nurse. qf 09:26 No provider procedures requiring assistance completed. Patient maintains SpO2 qf saturation greater than 95% on room air. 11:45 Surjit Nesbitt is Hospitalizing Provider. madyson 12:31 Surjit Nesbitt is Hospitalizing Provider. madyson 14:44 Patient admitted, IV remains in place. qf Administered Medications: 08:36 Drug: Aspirin PO Chewable Tablet 162 mg PO once Route: PO; qf 09:36 Follow up: Response: No adverse reaction qf 08:36 Drug: NS 0.9% IV 500 ml IV at bolus once Route: IV; Rate: bolus; Site: right upper arm; qf 11:52 Follow up: Response: No adverse reaction; IV Status: Completed infusion qf 08:36 Drug: NS 0.9% IV 1000 ml IV at 125 ml/hr continuous Route: IV; Rate: 125 ml/hr; Site: qf right upper arm; 14:43 Follow up: Response: No adverse reaction; IV Status: Completed infusion qf 08:36 Drug: foLIC Acid IVPB 1 mg IVPB once Route: IVPB; Site: right upper arm; qf 17:00 Follow up: Response: No adverse reaction; IV Status: Completed infusion mb9 11:45 Drug: Acetaminophen PO 1000 mg PO once Route: PO; qf 12:45 Follow up: Response: Pain is decreased qf Medication: 09:25 VIS not applicable for this client. qf Outcome: 11:46 Decision to Hospitalize by Provider. madyson 12:27 Discharge ordered by . madyson 12:32 Decision to Hospitalize by Provider. madyson 14:44 Admitted to ER Hold. Please see [facility] for further documentation. qf 14:44 Condition: stable 14:44 Instructed on the need for admit, 18:11 Patient left the ED. mb9 Signatures: Dispatcher [employer] Eliot Maravilla MD MD cha Williams, Irene, RN RN iw Benton, Danielle, RN RN db Wilkerson, Mary Beth, RN RN mb9 Gulshan Rawls RN RN qf Corrections: (The following items were deleted from the chart) 07:52 07:49 Pulse 82bpm; Resp 18bpm; Pulse Ox 100%; Temp 97.6F; 100.24 kg; Height 5 ft. 2 iw in.; BMI: 40.4; Pain 5/10, Adult; iw 09: 09:06 NS 0.9% IV 1000 ml IV at 125 ml/hr in right upper arm qf qf 09: 07:51 Allergies: ANYTHING THAT PROLONGS QT; iw qf 09: 07:51 Allergies: Benadryl; iw qf 12:50 07:49 Chief complaint: Patient states: sharp chest pains yesterday, feeling like I'm [id number] swelling , last night I felt light headed and I had a headache and my BP was high and my left side felt tingly iw
--- NOTE | 2024-07-13 11:46 | EDPHYS ---
Physician Documentation [facility] Name: Vanessa Gonzalez Age: 48 yrs Sex: Female : 1975 Arrival Date: 07/13/2024 Time: 07:43 Bed 19 Private MD: JIM Physician Eliot Hair HPI: 07/13 11:36 This 48 yrs old Female presents to ER via Ambulatory with complaints of Chest madyson Pain, High Blood Pressure. 11:36 The patient or guardian reports chest pain that is located primarily in the anterior madyson chest wall, bilaterally. Onset: today. The pain does not radiate. Associated signs and symptoms: Pertinent positives: dizziness, lightheadedness. The chest pain is described as aching. Duration: The patient or guardian reports multiple episodes, that wax and wane, with no pattern. Severity of pain: At its worst the pain was mild in the emergency department the pain is unchanged. 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: 07:57 LMP N/A - Hysterectomy, Not qf Historical: - Allergies: 07:51 Ketorolac; iw 07:51 Morphine; iw 09:12 ANYTHING THAT PROLONGS QT; qf 09:12 Benadryl; qf - Home Meds: 09:12 amlodipine 5 mg oral tablet for hypertension [Active]; Bystolic 10 mg oral tablet 1 tab qf daily for hypertension [Active]; Protonix 40 mg Oral TbEC 1 tab once daily for gastroesophageal reflux disease [Active]; Xanax 0.5 mg Oral tab 1 tab daily for anxiety [Active]; Repatha Syringe 140 mg/mL subcutaneous syrg 1 mL every 2 wks [Active]; Cimzia 400 mg/2 mL (200 mg/mL x 2) subcutaneous Syringe Kit every 4 weeks for rheumatoid arthritis [Active]; - PMHx: 07:51 Depression; Anxiety; GERD; High Cholesterol; Hypertension; Pacemaker; prolonged QT iw interval; Rheumatoid Arthritis; TIA; - PSHx: 07:51 padmini carpal tunnel (ec); section; Cholecystectomy; Gastric Bypass; iw hysterectomy; Pacemaker/Defibrillator; - Immunization history:: Adult Immunizations up to date. - Infectious Disease History:: Denies. - Family history:: not pertinent. - Social history:: Smoking status: Patient denies any tobacco usage or history of. ROS: 11:36 Constitutional: Negative for fever, chills, and weight loss, Eyes: Negative for injury, madyson pain, redness, and discharge, ENT: Negative for injury, pain, and discharge, Neck: Negative for injury, pain, and swelling, Respiratory: Negative for shortness of breath, cough, wheezing, and pleuritic chest pain, Abdomen/GI: Negative for abdominal pain, nausea, vomiting, diarrhea, and constipation, Back: Negative for injury and pain, : Negative for injury, bleeding, discharge, and swelling, MS/Extremity: Negative for injury and deformity, Skin: Negative for injury, rash, and discoloration, Neuro: Negative for headache, weakness, numbness, tingling, and seizure, Psych: Negative for depression, anxiety, suicide ideation, homicidal ideation, and hallucinations, Allergy/Immunology: Negative for hives, rash, and allergies, Endocrine: Negative for neck swelling, polydipsia, polyuria, polyphagia, and marked weight changes, Hematologic/Lymphatic: Negative for swollen nodes, abnormal bleeding, and unusual bruising, 11:36 Cardiovascular: Positive for chest pain, Exam: 11:36 Constitutional: This is a well developed, well nourished patient who is awake, alert, madyson and in no acute distress. Head/Face: Normocephalic, atraumatic. Eyes: Pupils equal round and reactive to light, extra-ocular motions intact. Lids and lashes normal. Conjunctiva and sclera are non-icteric and not injected. Cornea within normal limits. Periorbital areas with no swelling, redness, or edema. ENT: Nares patent. No nasal discharge, no septal abnormalities noted. Tympanic membranes are normal and external auditory canals are clear. Oropharynx with no redness, swelling, or masses, exudates, or evidence of obstruction, uvula midline. Mucous membranes moist. Neck: Trachea midline, no thyromegaly or masses palpated, and no cervical lymphadenopathy. Supple, full range of motion without nuchal rigidity, or vertebral point tenderness. No Meningismus. Chest/axilla: Normal chest wall appearance and motion. Nontender with no deformity. No lesions are appreciated. Cardiovascular: Regular rate and rhythm with a normal S1 and S2. No gallops, murmurs, or rubs. Normal PMI, no JVD. No pulse deficits. Respiratory: Lungs have equal breath sounds bilaterally, clear to auscultation and percussion. No rales, rhonchi or wheezes noted. No increased work of breathing, no retractions or nasal flaring. Abdomen/GI: Soft, non-tender, with normal bowel sounds. No distension or tympany. No guarding or rebound. No evidence of tenderness throughout. Back: No spinal tenderness. No costovertebral tenderness. Full range of motion. Skin: Warm, dry with normal turgor. Normal color with no rashes, no lesions, and no evidence of cellulitis. MS/ Extremity: Pulses equal, no cyanosis. Neurovascular intact. Full, normal range of motion. Neuro: Awake and alert, GCS 15, oriented to person, place, time, and situation. Cranial nerves II-XII grossly intact. Motor strength 5/5 in all extremities. Sensory grossly intact. Cerebellar exam normal. Normal gait. Psych: Awake, alert, with orientation to person, place and time. Behavior, mood, and affect are within normal limits. 11:36 ECG was reviewed by the Attending Physician. 11:36 Musculoskeletal/extremity: DVT Exam: No signs of deep vein thrombosis. no pain, no swelling, no tenderness, negative Homans' sign noted on exam, no appreciated bluish discoloration, no erythema, no increased warmth, Vital Signs: 07:49 BP 157 / 110; Pulse 82; Resp 18; Temp 97.6; Pulse Ox 100% ; Weight 100.24 kg; Height 5 iw ft. 2 in. ; Pain 5/10; 07:57 BP 167 / 101; Pulse 66; Resp 18; Temp 98.4; Pulse Ox 100% ; Weight 101.15 kg; Height 5 qf ft. 2 in. ; Pain 6/10; 09:25 BP 147 / 97; Pulse 60; Resp 18; Pulse Ox 100% ; qf 09:52 BP 154 / 81; Pulse 60; Resp 18; Pulse Ox 100% on R/A; mb9 12:10 BP 147 / 80; Pulse 60; Resp 16; Temp 98.2; Pulse Ox 99% on R/A; Pain 3/10; qf 14:00 BP 144 / 94; Pulse 63; Resp 18; Pulse Ox 99% on R/A; qf 14:00 BP 139 / 73; Pulse 73; Resp 18; Pulse Ox 99% on R/A; qf 18:10 BP 108 / 54; Pulse 60; Resp 18; Temp 98.4; Pulse Ox 99% on R/A; qf 07:57 Body Mass Index 40.79 (101.15 kg, 157.48 cm) qf 07:49 Pain Scale: Adult iw 07:57 Pain Scale: Adult qf 12:10 Pain Scale: Adult qf MDM: 07:44 Patient medically screened. madyson 11:40 Differential diagnosis: abnormal EKG, acute myocardial infarction, acute pericarditis, madyson anxiety, chest wall pain, cholecystitis, Cholelithiasis costochondritis, esophagitis, gastritis, herpes zoster, pancreatitis, peptic ulcer disease, pericarditis, pneumonia, pulmonary embolus, stable angina, thoracic aortic disection, unstable angina. HEART Score: History: Slightly Suspicious (0), ECG: Non specific repolarization disturbance / LBTB / PM (1), Age: > 45 and < 65 years (1), Risk Factors: > or = 3 Risk factors for atherosclerotic disease (2), [Hypertension] [+ Family HX] [Obesity] Troponin: < or = 1 x Normal Limit (0). The patient was given aspirin in the Emergency Department. AFUA Risk Score: 1 - Three or more CAD risk factors, [Family Hx], [HTN], [Elevated Cholesterol]. Data reviewed: vital signs, nurses notes, lab test result(s), EKG, radiologic studies, plain films. Consideration of Admission/Observation Patient was admitted/placed on observation. Escalation of care including admission/observation considered. I considered the following discharge prescriptions or medication management in the emergency department Medications were administered in the Emergency Department. See MAR. Independent interpretation of the following test(s) in the Emergency Department EKG: See my EKG interpretation above. Test considered but Not performed: Ultrasound NO 2 D ECHO. Historians other than the Patient: PT WELL INFORMED. Care significantly affected by the following chronic conditions: Hypertension, Obesity, PM. Counseling: I had a detailed discussion with the patient and/or guardian regarding the historical points, exam findings, and any diagnostic results supporting the discharge/admit diagnosis, the presence of at least one elevated blood pressure reading (>120/80) during this emergency department visit, lab results, the need for outpatient follow up. 07/13 07:46 Order name: Basic Metabolic Panel; Complete Time: 11:21 madyson 07/13 07:46 Order name: CBC with Diff; Complete Time: 11:21 madyson 07/13 07:46 Order name: LFT's; Complete Time: 11:21 madyson 07/13 07:46 Order name: Magnesium; Complete Time: 11:21 madyson 07/13 07:46 Order name: NT PRO-BNP; Complete Time: 11:21 madyson 07/13 07:46 Order name: PT-INR; Complete Time: 11:21 madyson 07/13 07:46 Order name: Troponin HS; Complete Time: 11:21 madsyon 07/13 07:46 Order name: Lipase; Complete Time: 11:21 madyson 07/13 07:46 Order name: Urinalysis w/ reflexes; Complete Time: 11:21 madyson 07/13 07:46 Order name: PREGU; Complete Time: 11:21 madyson 07/13 09:19 Order name: CREATININE WHOLE BLOOD; Complete Time: 11:21 EDMS 07/13 12:39 Order name: T4 Free EDMS 07/13 12:39 Order name: Thyroid Stimulating Hormone EDMS 07/13 12:39 Order name: Urinalysis w/ reflexes EDMS 07/13 12:39 Order name: Basic Metabolic Panel EDMS 07/13 12:39 Order name: Basic Metabolic Panel EDMS 07/13 12:39 Order name: Basic Metabolic Panel EDMS 07/13 12:39 Order name: CBC with Automated Diff EDMS 07/13 12:39 Order name: CBC with Automated Diff EDMS 07/13 12:39 Order name: CBC with Automated Diff EDMS 07/13 12:39 Order name: Lipid Profile EDMS 07/13 12:39 Order name: Lipid Profile EDMS 07/13 12:39 Order name: Magnesium EDMS 07/13 12:39 Order name: Magnesium EDMS 07/13 12:39 Order name: Magnesium EDMS 07/13 12:39 Order name: Phosphorus EDMS 07/13 12:39 Order name: Phosphorus EDMS 07/13 12:39 Order name: Phosphorus EDMS 07/13 12:39 Order name: Troponin High Sensitivity EDMS 07/13 12:39 Order name: Troponin High Sensitivity EDMS 07/13 12:39 Order name: Troponin High Sensitivity EDMS 07/13 07:46 Order name: XRAY Chest (1 view); Complete Time: 11:21 madyson 07/13 07:57 Order name: CT Neck Angio; Complete Time: 11:21 [facility] 07/13 08:02 Order name: Head angio; Complete Time: 11:21 EDMA 07/13 08:03 Order name: CT Head Brain wo Cont; Complete Time: 11:21 [facility] 07/13 12:39 Order name: CONS Physician Consult EDMA 07/13 12:39 Order name: Physical Therapy Consult EDMA 07/13 07:46 Order name: Cardiac monitoring; Complete Time: 08:52 [facility] 07/13 07:46 Order name: EKG - Nurse/Tech; Complete Time: 08:52 [facility] 07/13 07:46 Order name: IV Saline Lock; Complete Time: 08:52 [facility] 07/13 07:46 Order name: Labs collected and sent; Complete Time: 08:52 [facility] 07/13 07:46 Order name: O2 Per Protocol; Complete Time: 08:52 [facility] 07/13 07:46 Order name: O2 Sat Monitoring; Complete Time: 08:52 [facility] EC:36 Rate is 60 beats/min. Rhythm is regular. QRS Chandler is Normal. UT interval is normal. QRS madyson interval is normal. QT interval is prolonged at 494 msec. No Q waves. T waves are Normal. Clinical impression: Abnormal EKG without significant change and No evidence of ischemia. Interpreted by me. Reviewed by me. Administered Medications: 08:36 Drug: Aspirin PO Chewable Tablet 162 mg PO once Route: PO; qf 09:36 Follow up: Response: No adverse reaction qf 08:36 Drug: NS 0.9% IV 500 ml IV at bolus once Route: IV; Rate: bolus; Site: right upper arm; qf 11:52 Follow up: Response: No adverse reaction; IV Status: Completed infusion qf 08:36 Drug: NS 0.9% IV 1000 ml IV at 125 ml/hr continuous Route: IV; Rate: 125 ml/hr; Site: qf right upper arm; 14:43 Follow up: Response: No adverse reaction; IV Status: Completed infusion qf 08:36 Drug: foLIC Acid IVPB 1 mg IVPB once Route: IVPB; Site: right upper arm; qf 17:00 Follow up: Response: No adverse reaction; IV Status: Completed infusion mb9 11:45 Drug: Acetaminophen PO 1000 mg PO once Route: PO; qf 12:45 Follow up: Response: Pain is decreased qf Disposition Summary: 07/13/24 12:32 Hospitalization Ordered Notes: Hospitalization Status: Observation(07/13/24 12:32) madyson Provider: Surjit Nesbitt(07/13/24 12:32) madyson Condition: Stable(07/13/24 12:32) madyson Problem: new(07/13/24 12:32) madyson Symptoms: have improved(07/13/24 12:32) madyson Bed/Room Type: Standard(07/13/24 12:32) madyson Location: Telemetry/MedSurg (observation)(07/13/24 17:05) bd Room Assignment: 217(07/13/24 17:05) bd Diagnosis - Chest pain, unspecified(07/13/24 12:32) madyson - Essential (primary) hypertension(07/13/24 12:32) madyson - Presence of cardiac pacemaker(07/13/24 12:32) madyson Forms: - Medication Reconciliation Form madyson - SBAR form madyson - Leadership Thank You Letter madyson Signatures: Dispatcher [employer] EDMS Maya Guadalupe Corey, MD MD cha Williams, Irene, RN Ciarra Naranjo RN RN [id number] Gulshan Rawls RN RN Elisabet Jansen RN mb9 Corrections: (The following items were deleted from the chart) 07:46 07:46 BASIC METABOLIC PANEL+C.LAB.BRZ ordered. EDMS EDMS 07:46 07:46 CBC+H.LAB.BRZ ordered. EDMS EDMS 07:46 07:46 HEPATIC FUNCTION+C.LAB.BRZ ordered. EDMS EDMS 07:46 07:46 MAGNESIUM+C.LAB.BRZ ordered. EDMS EDMS 07:46 07:46 PROBNP+C.LAB.BRZ ordered. EDMS EDMS 07:46 07:46 PROTIME (+INR)+COAG.LAB.BRZ ordered. EDMS EDMS 07:46 07:46 Troponin High Sensitivity+C.LAB.BRZ ordered. EDMS EDMS 07:46 07:46 LIPASE+C.LAB.BRZ ordered. EDMS EDMS 07:46 07:46 Urinalysis+U.LAB.BRZ ordered. EDMS EDMS 07:46 07:46 Test, Urine+UC.LAB.BRZ ordered. EDMS EDMS 07:47 07:47 Chest Single View+RAD.RAD.BRZ ordered. EDMS EDMS 09:23 07:51 Allergies: ANYTHING THAT PROLONGS QT; iw qf 09:23 07:51 Allergies: Benadryl; iw qf 12:26 11:46 Observation madyson madyson 12:26 11:46 Surjit Nesbitt madyson madyson 12:26 11:46 Telemetry/MedSurg (observation) madyson madyson 12:26 11:46 Stable madyson madyson 12:26 11:46 new madyson madyson 12:26 11:46 have improved madyson madyson 12:26 11:46 Standard madyson madyson 12:26 11:46 madyson madyson 12:26 11:46 Chest pain, unspecified madyson madyson 12:26 11:46 Essential (primary) hypertension madyson madyson 12:26 11:46 Presence of cardiac pacemaker madyson madyson 12:31 12:27 Home madyson madyson 12:31 12:27 new madyson madyson 12:31 12:27 have improved madyson madyson 12:31 12:27 Stable madyson madyson 12:31 12:27 Chest pain, unspecified madyson madyson 12:31 12:27 Anxiety disorder, unspecified madyson madyson 12:31 12:27 Presence of cardiac pacemaker madyson madyson 13:27 12:32 Telemetry/MedSurg (observation) madyson bd 13:27 12:32 madyson bd 17:05 13:27 [facility] ER HOLD bd bd 17:05 13:27 ERHOLD- bd bd
[2024-07-13] MEDS: NA CHLORIDE 0.9% 1,000 ML IV SCH (13:00)
--- NOTE | 2024-07-13 13:13 | P.HP ---
Certification for Inpatient Patient admitted to: Observation With expected LOS: <2 Midnights Patient will require the following post-hospital care: None Practitioner: I am a practitioner with admitting privileges, knowledge of patient current condition, hospital course, and medical plan of care. Services: Services provided to patient in accordance with Admission requirements found in Title 42 Section 412.3 of the Code of Federal Regulations Patient History Date of Service: 07/13/24 Reason for admission: CP and CVA r/o History of Present Illness: Vanessa Gonzalez is a 48 year old female with Pmhx TIA, prolonged QT with a pacemaker, rheumatoid arthritis, hypertension, hypercholesterolemia, anxiety/depression, GERD who presents to the ED with chief complaint of left- sided weakness, elevated blood pressure, headache, lightheadedness, and chest pain. She reports having a TIA in the past and this episode felt similar. CT scans negative for acute findings, MRI cannot be performed with a pacemaker. On evaluation, she shows no distress, can speak clearly, NIHSS 0, and chest pain remained intermittent. Laboratory evaluation significant for WBC 11.2, AST 101, ALT 160, alk phos 232, lipase 82, UA negative for infectious process Chest x-ray reports "No acute intrathoracic abnormalities." Head CT reports "No evidence of hydrocephalus, intracranial hemorrhage, or extra-axial fluid collection. The brain is normal in morphology. No evidence of midline shift or areas of brain edema. The calvarium is intact. Mild polypoid mucosal thickening noted in the paranasal sinuses. IMPRESSION: No evidence of acute intracranial abnormality." CTA head reports "No significant flow abnormality is identified." CTA neck reports "No significant flow abnormality of the neck vessels is identified." Vansesa will be admitted to hospiltalist service for further evaluation and treatment of CP r/o and Stroke monitoring Allergies ketorolac Allergy (Verified 10/23/18 21:46) Hives/Rash, SOB morphine Allergy (Verified 10/23/18 21:46) Shortness of breath Home Medications: Evolocumab [Repatha Syringe] 1 dose SQ SEECOM 08/23/18 Amlodipine Besylate [Norvasc] 5 mg PO DAILY 10/23/18 ALPRAZolam [Xanax Xr] 0.5 mg PO DAILY 09/09/21 Nebivolol HCl [Bystolic] 5 mg PO BID 09/09/21 Pantoprazole Sodium [Protonix] 40 mg DAILY 09/09/21 predniSONE [Prednisone] 5 mg PO DAILY 01/03/23 Amox/Clavulanate [Augmentin 875-125 Tab] 875 mg PO BID 4 Days #8 tab 07/18/23 - Past Medical/Surgical History Diabetic: No -: Hypertension -: Hyperlipidemia -: GERD -: Diverticulosis -: Depression with anxiety -: Prolonged QT syndrome -: Obesity -: Fatty liver -: Vitamin-D deficiency -: chronic pancreatitis -: Hysterectomy-2013 -: 2x [id number] -: Carpal Tunnel-2000 -: Gall bladder-2005 -: Lap Band-2011 Psychosocial/ Personal History: She is . Has 3 children. 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 - Family History Mother -: Heart disease, Hypertension, Diabetes, Stroke, Other (see notes) Notes: High cholesterol Father -: Heart disease, Hypertension, Diabetes Brother -: Hypertension Notes: Liver Cirrhosis Sister -: Stroke Notes: High BP, [place] Leukemia - Social History Smoking Status: Never smoker Alcohol use: No CD- Drugs: No Caffeine use: Yes Review of Systems Cardiovascular: Chest Pain, Light Headedness Neurological: Weakness (left sided), Other (headache) Physical Examination - Physical Exam General: Alert, In no apparent distress, Oriented x3 HEENT: Atraumatic, Normocephalic, PERRLA Neck: Supple, JVD not distended Respiratory: Clear to auscultation bilaterally, Normal air movement Cardiovascular: Normal pulses, Regular rate/rhythm, Normal S1 S2 Capillary refill: <2 Seconds Gastrointestinal: Normal bowel sounds, Soft and benign, No tenderness Musculoskeletal: No clubbing Integumentary: No rashes Neurological: Normal speech, Normal strength at 5/5 x4 extr, Normal tone - Studies Laboratory Data (last 24 hrs) 07/13/24 07/13/24 07/13/24 08:26 08:26 08:26 WBC 11.20 H Hgb 13.7 Hct 42.5 Plt Count 258 PT 11.3 INR 1.01 Sodium 138 Potassium 3.6 BUN 17 Creatinine 0.72 Glucose 113 H Magnesium 2.2 Total Bilirubin 0.5 AST 101 H ALT 160 H Alkaline Phosphatase 232 H Lipase 82 H Assessment and Plan - Plan Assessment and plan Chest pain rule out Hx prolonged QT with pacemaker Hypertensive - EKG: No obvious ST segment changes, trend - troponin negative, Serial pending - Ordered transthoracic echocardiogram - Chest x-ray reports "No acute intrathoracic abnormalities." - Consult Cardiology - recommendations appreciated - S/P aspirin 162 mg PO x 1 in ED - daily 81 mg aspirin and statin - Symptom control with PRN acetaminophen, nitroglycerin -continuous telemetry -TSH/FreeT4, A1C, lipid panel pending CVA r/o -Reports left sided weakness -Head CT reports "No evidence of hydrocephalus, intracranial hemorrhage, or extra-axial fluid collection. The brain is normal in morphology. No evidence of midline shift or areas of brain edema. The calvarium is intact. Mild polypoid mucosal thickening noted in the paranasal sinuses. IMPRESSION: No evidence of acute intracranial abnormality." -CTA head reports "No significant flow abnormality is identified." -CTA neck reports "No significant flow abnormality of the neck vessels is identified." -cannot perform MRI d/t pacemaker -NIHSS 0 -Neuro checks Q shift -Dr. Mitchell consulted -asa, statin, folic acid daily -PT evaluation -Continuous telemetry Hyperlipidemia GERD Diverticulosis Depression with anxiety Chronic pancreatitis with fatty liver Vitamin D deficiency Obesity -Continue home medication -Nutritional guidance -Follow-up outpatient with specialist DVT PPx SCD Full code LOS 24-hour OBS Discharge Plan: Home Plan to discharge in: 24 Hours - Advance Directives Does patient have a Living Will: No Does patient have a Durable POA for Healthcare: No
[2024-07-13] MEDS ORDERED: NITROGLYCERIN 0.4 MG/TAB SL PRN (14:18)
[2024-07-13] MEDS ORDERED: HYDRALAZINE HCL 20 MG/ML VIAL IV PRN (14:18)
[2024-07-13 16:21] VITALS: BMI 40.4
[2024-07-13] MEDS: INFLUENZA VACCINE (for 6+ mo) 0.5 ML DOSE IMVAC ONE (18:00)
[2024-07-13] MEDS: ACETAMINOPHEN 325 MG TABLET PO PRN (21:07)
[2024-07-13] MEDS: ATORVASTATIN 40 MG TAB PO SCH (21:07)
[2024-07-13 22:50] VITALS: O2SAT 100
[2024-07-14 05:45] LABS: Absolute Basophils 0.1 K/uL (0-0.5); Absolute Eosinophils 0.2 K/uL (0-0.5); Absolute Lymphocytes (CBC) 3.5 K/uL (0.7-4.9); Absolute Monocytes 0.6 K/uL (0.1-1.3); Absolute Neutrophil 3.8 K/uL (1.8-8.0); Basophils % 0.7 % (0-1.3); Eosinophils % 2.6 % (0-4.4); Hematocrit 36.7 % (36.0-45.0); Lymphocytes % 42.8 % (15.3-44.8); MCHC 32.6 g/dL (32.0-36.0); MCV 82.9 fL (80-100); MPV 8.7 fL (7.6-11.3); Monocytes % 7.9 % (3.3-12.3); Platelets 208 thou/uL (152-406); RBC Red Blood Cell Count 4.43 M/uL (3.86-4.86); Red Cell Distribution Width 14.5 % (12.1-15.2)
[2024-07-14 06:18] LABS: Magnesium 2.2 mg/dL (1.6-2.4); Phosphorus 4.4 mg/dL (2.5-4.9); Thyroid Stimulating Hormone 1.99 uIU/mL (0.358-3.740)
[2024-07-14] MEDS: FOLIC ACID 1 MG TABLET PO SCH (08:56)
[2024-07-14] MEDS: ASPIRIN EC 81 MG TAB PO SCH (08:56)
--- NOTE | 2024-07-14 12:20 | P.CNS ---
Date of Consult: 07/14/24 Chief Complaint: CP and CVA r/o History of Present Illness: Patient with PMH of HTN presented with chest pressure sensation started yesterday associated with headache and generalized malaise that lasted all day, she check her BP and it was up to the 190s systolic, denies any other symptoms, no SOB, no palpitations, no dizzy spells, no syncope. Allergies ketorolac Allergy (Verified 10/23/18 21:46) Hives/Rash, SOB morphine Allergy (Verified 10/23/18 21:46) Shortness of breath Home medications list reviewed: Yes Home Medications: Evolocumab [Repatha Syringe] 1 dose SQ SEECOM 08/23/18 Amlodipine Besylate [Norvasc] 5 mg PO DAILY 10/23/18 ALPRAZolam [Xanax Xr] 0.5 mg PO DAILY 09/09/21 Nebivolol HCl [Bystolic] 5 mg PO BID 09/09/21 Pantoprazole Sodium [Protonix] 40 mg DAILY 09/09/21 predniSONE [Prednisone] 5 mg PO DAILY 01/03/23 Amox/Clavulanate [Augmentin 875-125 Tab] 875 mg PO BID 4 Days #8 tab 07/18/23 - Past Medical/Surgical History Diabetic: No -: Hypertension -: Hyperlipidemia -: GERD -: Diverticulosis -: Depression with anxiety -: Prolonged QT syndrome -: Obesity -: Fatty liver -: Vitamin-D deficiency -: chronic pancreatitis -: Hysterectomy-2013 -: 2x [id number] -: Carpal Tunnel-2000 -: Gall bladder-2005 -: Lap Band-2011 Psychosocial/ Personal History: She is . Has 3 children. 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 - Family History Mother Medical History: Heart disease, Hypertension, Diabetes, Stroke, Other (see notes) Notes: High cholesterol Father Medical History: Heart disease, Hypertension, Diabetes Brother Medical History: Hypertension Notes: Liver Cirrhosis Sister Medical History: Stroke Notes: High BP, [place] Leukemia - Social History Smoking Status: Unknown if ever smoked Alcohol use: No CD- Drugs: No Caffeine use: Yes Review of Systems 10-point ROS is otherwise unremarkable Physical Examination Temp Pulse Resp BP Pulse Ox 97.9 F 60 12 118/56 L 97 07/14/24 08:00 07/14/24 08:00 10/02/24 08:00 07/14/24 08:00 07/14/24 08:00 General: Alert, In no apparent distress HEENT: Atraumatic, PERRLA, Mucous membr. moist/pink, EOMI, Sclerae nonicteric Neck: Supple, 2+ carotid pulse no bruit, No LAD, Without JVD or thyroid abnormality Respiratory: Clear to auscultation bilaterally, Normal air movement Cardiovascular: Regular rate/rhythm, Normal S1 S2 Gastrointestinal: Normal bowel sounds, No tenderness Musculoskeletal: No tenderness Integumentary: No rashes Neurological: Normal gait, Normal speech, Normal tone, Normal affect Lymphatics: No axilla or inguinal lymphadenopathy - Problems (1) Chest pain Current Visit: No Status: Acute Plan: Non cardiac, enzymes are negative, most likely related to high BP. No further cardiac work up needed. Qualifiers: Chest pain type: unspecified Qualified Code(s): R07.9 - Chest pain, unspecified (2) Hypertension Current Visit: No Status: Chronic Plan: continue Bystolic and Norvasc. Qualifiers: Hypertension type: primary hypertension Qualified Code(s): I10 - Essential (primary) hypertension (3) Prolonged QT syndrome Current Visit: No Status: Chronic Plan: s/p PM/defibrillator, continue to follow up as outpatient.
--- NOTE | 2024-07-14 13:00 | EKG ---
Test Date: 2024-07-13 Test Time: 08:18:53 [place] Hand: ALANIS MEASUREMENT RESULTS: Intervals: Rate: 60 CT: 162 QRSD: 74 QT: 494 QTc: 494 Driver: P: 48 CT: 162 QRS: 50 T: 63 INTERPRETIVE STATEMENTS: Electronic atrial pacemaker Prolonged QT Abnormal ECG Compared to ECG 01/03/2023 15:58:12 Sinus rhythm no longer present Electronically Signed On 07-14-24 12:55:17 CDT by Quoc Gonzalez
[2024-07-14 13:07] VITALS: BP 125/59; TEMP 97.6
--- NOTE | 2024-07-14 13:30 | ECHO ---
HEIGHT: 5 ft 2 in WEIGHT: 221 lb 0 oz DATE OF STUDY: 07/13/[address]: Laura Mason NP 2-DIMENSIONAL: YES M.MODE: YES DOPPLER: YES COLOR FLOW: YES TDS: PORTABLE: YES DEFINITY: BUBBLE STUDY: DIAGNOSIS: CHEST PAIN RULE OUT CARDIAC HISTORY: CATHERIZATION: NO SURGERY: NO PROSTHETIC VALVE: NO PACEMAKER: YES MEASUREMENTS (cm) DIASTOLIC (NORMALS) SYSTOLIC (NORMALS) IVSd 1.2 (0.6-1.2) LA Diam 2.6 (1.9-4.0) LVEF 60-65% LVIDd 3.4 (3.5-5.7) LVIDs 2.4 (2.0-3.5) %FS 29% LVPWd 1.3 (0.6-1.2) Ao Diam 2.7 (2.0-3.7) 2 DIMENSIONAL ASSESSMENT: RIGHT ATRIUM: NORMAL LEFT ATRIUM: NORMAL RIGHT VENTRICLE: NORMAL LEFT VENTRICLE: NORMAL TRICUSPID VALVE: TRACE TRICUSPID REGURGITATION MITRAL VALVE: NORMAL PULMONIC VALVE: NORMAL AORTIC VALVE: NORMAL PERICARDIAL EFFUSION: NONE AORTIC ROOT: NORMAL LEFT VENTRICULAR WALL MOTION: NORMAL DOPPLER/COLOR FLOW: NORMAL COMMENTS: 1. NORMAL LEFT VENTRICULAR SYSTOLIC FUNCTION, EJECTION FRACTION 60-65%, NORMAL WALL MOTION 2. NORMAL DIASTOLIC FUNCTION TECHNOLOGIST: VERITO COLVIN
--- NOTE | 2024-07-14 14:28 | P.DS ---
Admission Date: 07/13/24 Discharge Date: 07/14/24 Disposition: ROUTINE DISCHARGE Discharge Condition: GOOD Reason for Admission: CP and CVA r/o Brief History of Present Illness: Diagnosis Chest pain rule out Hx prolonged QT with pacemaker Hypertensive CVA ruled out Hyperlipidemia GERD Diverticulosis Depression with anxiety Chronic pancreatitis with fatty liver Vitamin D deficiency Obesity HPI 07/13/2024 Vanessa Gonzalez is a 48 year old female with Pmhx TIA, prolonged QT with a pacemaker, rheumatoid arthritis, hypertension, hypercholesterolemia, anxiety/depression, GERD who presents to the ED with chief complaint of left- sided weakness, elevated blood pressure, headache, lightheadedness, and chest pain. She reports having a TIA in the past and this episode felt similar. CT scans negative for acute findings, MRI cannot be performed with a pacemaker. On evaluation, she shows no distress, can speak clearly, NIHSS 0, and chest pain remained intermittent. Laboratory evaluation significant for WBC 11.2, AST 101, ALT 160, alk phos 232, lipase 82, UA negative for infectious process Chest x-ray reports "No acute intrathoracic abnormalities." Head CT reports "No evidence of hydrocephalus, intracranial hemorrhage, or extra-axial fluid collection. The brain is normal in morphology. No evidence of midline shift or areas of brain edema. The calvarium is intact. Mild polypoid mucosal thickening noted in the paranasal sinuses. IMPRESSION: No evidence of acute intracranial abnormality." CTA head reports "No significant flow abnormality is identified." CTA neck reports "No significant flow abnormality of the neck vessels is identified." Vanessa will be admitted to hospiltalist service for further evaluation and treatment of CP r/o and Stroke monitoring Hospital Course: Vanessa Gonzalez is a pleasant 48-year-old female with a past medical history significant for TIA, prolonged QT with a pacemaker, rheumatoid arthritis, hypertension, hypercholesterolemia, anxiety/depression, GERD who was admitted to the [facility] on 07/13/2024 for chest pain rule out and stroke monitoring. Vanessa presented to the ED with chief complaint of left-sided weakness, elevated blood pressure, headache, lightheadedness, and chest pain. She sees Dr. Mitchell regularly for neurological health. Likely she had a headache, lightheadedness, and chest pain due to her hypertension. Cardiac enzymes negative and EKG negative for ST changes. Pacemaker interrogation states "No arrythmias/high rate episodes detected since last interrogation on 02/10/24. Device appears to be currently functioning as programmed Dr. Gonzalez will continue to follow as outpatient and has cleared her for discharge. Left-sided weakness and lightheadedness has resolved, Dr. Mitchell consulted and has cleared her for discharge and continue follow-up in his office. On 07/14/2024, Vanessa was seen on morning rounds and deemed medically stable for discharge. Vanessa was discharged with instructions to schedule follow-up appointments with Dr. Mitchell, Dr. Gonzalez, and PCP. Vanessa was provided prescription for aspirin. Physical Exam General: Alert and Oriented x3, NAD HEENT: Atraumatic, Normocephalic, PERRLA Neck: Supple, JVD not distended Respiratory: Clear to auscultation bilaterally, Normal air movement Cardiovascular: Normal pulses, normal sinus rhythm, Normal S1 S2 Capillary refill: <2 Seconds Gastrointestinal: Normal bowel sounds, Soft and benign on palpation, NT Musculoskeletal: No clubbing Integumentary: No rashes Neurological: Normal speech, Normal strength at 5/5 x4 extr, Normal tone Vital Signs/Physical Exam: Temp Pulse Resp BP Pulse Ox 97.6 F 62 14 125/59 L 97 07/14/24 12:00 07/14/24 12:00 07/14/24 12:00 07/14/24 12:00 07/14/24 12:00 Laboratory Data at Discharge: WBC 8.20 thou/uL (4.3-10.9) 07/14/24 05:21 Hgb 12.0 g/dL (12.0-15.0) D 07/14/24 05:21 Hct 36.7 % (36.0-45.0) 07/14/24 05:21 Plt Count 208 thou/uL (152-406) 07/14/24 05:21 PT 11.3 SECONDS (9.4-12.5) 07/13/24 08:26 INR 1.01 07/13/24 08:26 Sodium 139 mEq/L (136-145) 07/14/24 05:21 Potassium 4.0 mEq/L (3.5-5.1) 07/14/24 05:21 BUN 19 mg/dL (7-18) H 07/14/24 05:21 Creatinine 0.62 mg/dL (0.55-1.02) 07/14/24 05:21 Glucose 122 mg/dL (74-106) H 07/14/24 05:21 Phosphorus 4.4 mg/dL (2.5-4.9) 07/14/24 05:21 Magnesium 2.2 mg/dL (1.6-2.4) 07/14/24 05:21 Total Bilirubin 0.5 mg/dL (0.2-1.0) 07/13/24 08:26 AST 101 U/L (15-37) H 07/13/24 08:26 ALT 160 U/L (13-56) H 07/13/24 08:26 Alkaline Phosphatase 232 U/L (45-117) H 07/13/24 08:26 Triglycerides 87 mg/dL (<150) 07/14/24 05:21 Cholesterol 116 mg/dL (<200) 07/14/24 05:21 HDL Cholesterol 57 mg/dL (40-60) 07/14/24 05:21 Cholesterol/HDL Ratio 2.04 07/14/24 05:21 Lipase 82 U/L (13-75) H 07/13/24 08:26 Home Medications: Evolocumab [Repatha Syringe] 1 dose SQ SEECOM 08/23/18 Amlodipine Besylate [Norvasc] 5 mg PO DAILY 10/23/18 ALPRAZolam [Xanax Xr] 0.5 mg PO DAILY 09/09/21 Nebivolol HCl [Bystolic] 5 mg PO BID 09/09/21 Pantoprazole Sodium [Protonix] 40 mg DAILY 09/09/21 predniSONE [Prednisone] 5 mg PO DAILY 01/03/23 Amox/Clavulanate [Augmentin 875-125 Tab*] 875 mg PO BID 4 Days #8 tab 07/18/23 Aspirin [Aspirin EC 81 MG] 81 mg PO DAILY #30 tab 07/14/24 New Medications: Aspirin [Aspirin EC 81 MG] 81 mg PO DAILY #30 tab Diet: AHA Activity: Ad andre Followup: Quoc Gonzalez MD [ACTIVE - CAN ADMIT] - 1-2 Weeks Remedios Meng MD [Primary Care Provider] - 1 Week
== END 2024-07-14 15:25 | disposition home or self-care (01) ==
LOC: ER 07:43 → ERHOLD 12:31 → 2ND 17:26
PROVIDERS: ADMIT Internal Medicine; ATTEND Internal Medicine
DX: R07.9 Chest pain, unspecified (principal); I10 Essential (primary) hypertension; R94.31 Abnormal electrocardiogram [ECG] [EKG]; E78.00 Pure hypercholesterolemia, unspecified; F41.9 Anxiety disorder, unspecified; F32.A Depression, unspecified; K21.9 Gastro-esophageal reflux disease without esophagitis; R53.1 Weakness; R51.9 Headache, unspecified; K57.90 Diverticulosis of intestine, part unspecified, without perforation or abscess without bleeding; K86.1 Other chronic pancreatitis; K76.0 Fatty (change of) liver, not elsewhere classified; E55.9 Vitamin D deficiency, unspecified; E66.9 Obesity, unspecified; Z95.0 Presence of cardiac pacemaker; Z68.41 Body mass index [BMI] 40.0-44.9, adult; Z88.5 Allergy status to narcotic agent; Z86.73 Personal history of transient ischemic attack (TIA), and cerebral infarction without residual deficits; M06.9 Rheumatoid arthritis, unspecified
CPT/HCPCS: 93005; 93306; 85025 ×2; 80048 ×2; 36415 ×2; 83735 ×2; 81025; 84100; 85610; 80061; 82565; 80076; 84443; 81003; 84484 ×3; 84439; 83690; 83880; 70450; 70496; 70498; 71045; 97161; Q9967; Q2035; J7040; J7030 ×3; 96365; 96366; 99285; G0378

== ENCOUNTER 2024-11-01 18:05 | Emergency (ER) | payer OTHER ==
[2024-11-01 19:04] LABS: Sqamous Epithelial <5 /HPF (None Seen); Urine Bacteria <20 /HPF (<20); Urine Bilirubin NEGATIVE (Negative); Urine Blood Negative (Negative); Urine Clarity Turbid (Clear); Urine Color Yellow (Yellow); Urine Crystals Unidentified Few /HPF (None Seen); Urine Culture Reflex Order NOT NEEDED; Urine Glucose NEGATIVE (Negative); Urine Ketones NEGATIVE (Negative); Urine Microscopic Reflex YN ORDER UMIC; Urine Mucus 1+ /HPF (None Seen); Urine Nitrite NEGATIVE (Negative); Urine Protein TRACE (Negative); Urine RBC <5 /HPF (None Seen); Urine Urobilinogen Normal (Normal); Urine WBC <5 /HPF (<5); Urine Yeast (Budding) Trace /HPF (None Seen); Urine pH 5.5 (5.0-7.0)
[2024-11-01 19:10] LABS: Absolute Basophils 0.2 K/uL (0-0.5); Absolute Eosinophils 0.2 K/uL (0-0.5); Absolute Lymphocytes (CBC) 1.6 K/uL (0.7-4.9); Absolute Monocytes 0.8 K/uL (0.1-1.3); Absolute Neutrophil 9.1 K/uL (1.8-8.0); Eosinophils % 1.7 % (0-4.4); Hematocrit 41.1 % (36.0-45.0); Hemoglobin 13.5 g/dL (12.0-15.0); Lymphocytes % 13.2 % (15.3-44.8); MCH 26.3 pg (27.0-35.0); MCHC 32.8 g/dL (32.0-36.0); MCV 80.2 fL (80-100); MPV 8.3 fL (7.6-11.3); Monocytes % 6.5 % (3.3-12.3); Neutrophils % 76.6 % (41.7-73.7); Nucleated Red Blood Cells % 0.1 % (0-0); Platelets 259 thou/uL (152-406); RBC Red Blood Cell Count 5.12 M/uL (3.86-4.86); Red Cell Distribution Width 15.6 % (12.1-15.2)
[2024-11-01] MEDS ORDERED: PROMETHAZINE INJ 25 MG/ML AMP ONE (19:10)
[2024-11-01] MEDS ORDERED: FENTANYL CITR 100 MCG/2 ML ONE (19:11)
[2024-11-01] MEDS ORDERED: NA CHLORIDE 0.9% 1,000 ML ONE (19:13)
[2024-11-01 19:19] LABS: Albumin 3.8 g/dL (3.4-5.0); Albumin/Globulin Ratio 0.8 (1.1-1.8); Anion Gap 8.4 mEq/L (5.0-15.0); Bilirubin Total 0.7 mg/dL (0.2-1.0); Globulin 4.9 g/dL (2.3-3.5); Potassium 3.4 mEq/L (3.5-5.1); Protein, Total 8.7 g/dL (6.4-8.2)
--- NOTE | 2024-11-01 19:52 | RAD REPORT ---
EXAMINATION: CT ABDOMEN AND PELVIS WITH CONTRAST CLINICAL INDICATION: Female, 49 years old.ABD PAIN TECHNIQUE: CT abdomen and pelvis was performed, after the administration of IV contrast, [facility]. Axial, sagittal and coronal reconstructions were obtained. One or more of the following dose reduction techniques were used: Automated exposure control, adjustment of the mA and/o r kV according to patient size, and/or iterative reconstruction. Unless otherwise specified, incidental findings do not require dedicated imaging follow-up. [id number]. COMPARISON: 07/16/2023 FINDINGS: LOWER CHEST: No acute process identified.No significant pericardial effusion. Pacemaker leads. UPPER GI: Fernanda-en-Y gastric bypass. LIVER: Hepatic steatosis, but otherwise unremarkable. GALLBLADDER/BILE DUCTS: Cholecystectomy. Mild extra-hepatic biliary ductal dilatation is likely relat ed to the post-cholecystectomy state. Consider correlating with LFT's.? PANCREAS: Atrophy, but otherwise unremarkable. SPLEEN: Unremarkable. ADRENALS: No adrenal masses. KIDNEYS AND URETERS: No hydronephrosis.No suspicious renal mass. ABDOMINAL AORTA AND OTHER VESSELS: Mild atherosclerotic changes. PERITONEUM: No abnormal free fluid. No free air. LYMPH NODES: No pathologic lymphadenopathy. ABDOMINAL WALL: Small fat containing umbilical hernia. SMALL BOWEL/COLON: Nonperforated diverticulitis at the proximal sigmoid colon.Normal appendix. URINARY BLADDER: Underdistended but grossly unremarkable. REPRODUCTIVE ORGANS: No pathologic process. MUSCULOSKELETAL: No acute or suspicious osseous abnormality. ADDITIONAL FINDINGS: None. IMPRESSION: Nonperforated diverticulitis of the proximal sigmoid colon.
[2024-11-01] MEDS ORDERED: CEFTRIAXONE 1000 MG/VIAL ONE (20:00)
[2024-11-01] MEDS ORDERED: METRONIDAZOLE 500mg IVPB 500 MG/100 ML BAG IV ONE (20:01)
[2024-11-01] MEDS ORDERED: HYDROMORPHONE HCL 0.5 MG/0.5 ML INJ ONE (20:06)
--- NOTE | 2024-11-01 20:44 | ER ---
Nurse's Notes [facility] Name: Vanessa Gonzalez Age: 49 yrs Sex: Female : 1975 Arrival Date: 11/01/2024 Time: 18:05 Bed 6 Private MD: Diagnosis: Diverticulitis of large intestine without perforation or abscess without bleeding Presentation: 11/01 18:21 Chief complaint: Patient states: Left sided abdominal pain onset 1 week ago. Pt states cm10 that she saw PCP last week for concerns of UTI but the pain is getting worse. Pt also reports nausea and belching. Coronavirus screen: Client denies travel out of the [place] in the last 14 days. Ebola Screen: Patient denies travel to an Ebola-affected area in the 21 days before illness onset. Initial Sepsis Screen: Does the patient meet any 2 criteria? No. Patient's initial sepsis screen is negative. Does the patient have a suspected source of infection? No. Patient's initial sepsis screen is negative. Risk Assessment: Do you want to hurt yourself or someone else? Patient reports no desire to harm self or others. Onset of symptoms was November 01, 2024. 18:21 Method Of Arrival: Ambulatory cm10 18:21 Acuity: ANDREW 3 cm10 Triage Assessment: 18:23 General: Appears uncomfortable, Behavior is calm, cooperative. Neuro: No deficits cm10 noted. Level of Consciousness is awake, alert, obeys commands, Oriented to person, place, time, situation, Appropriate for age. Respiratory: No deficits noted. Airway is patent Respiratory effort is even, unlabored, Respiratory pattern is regular, symmetrical. MONUMENT LETTERER: 18:23 LMP N/A - Hysterectomy, Not cm10 Historical: - Allergies: 18:23 ANYTHING THAT PROLONGS QT; cm10 18:23 Benadryl; cm10 18:23 Ketorolac; cm10 18:23 Morphine; cm10 - PMHx: 18:23 Anxiety; Depression; GERD; High Cholesterol; Hypertension; Pacemaker; prolonged QT cm10 interval; Rheumatoid Arthritis; TIA; - PSHx: 18:23 padmini carpal tunnel; section; Cholecystectomy; Gastric Bypass; hysterectomy; cm10 Pacemaker/Defibrillator; - Immunization history:: Adult Immunizations up to date. - Infectious Disease History:: Denies. - Social history:: Smoking status: unknown. Screenin:37 [facility] ED Fall Risk Assessment (Adult) History of falling in the last 3 months, iw including since admission No falls in past 3 months (0 pts) Confusion or Disorientation No (0 pts) Intoxicated or Sedated No (0 pts) Impaired Gait No (0 pts) Mobility Assist Device Used No (0 pt) Altered Elimination No (0 pt) Score/Fall Risk Level 0 - 2 = Low Risk Oriented to surroundings, Maintained a safe environment. Abuse screen: Denies threats or abuse. Denies injuries from another. Nutritional screening: No deficits noted. Tuberculosis screening: No symptoms or risk factors identified. Assessment: 18:36 General: Appears in no apparent distress. Behavior is calm, cooperative. Pain: iw Complains of pain in left lower quadrant Pain radiates to back Pain currently is 8 out of 10 on a pain scale. Pain began last week. Neuro: Level of Consciousness is awake, alert, obeys commands, Oriented to person, place, time, situation, Moves all extremities. Full function. Cardiovascular: Patient's skin is warm and dry. Respiratory: Respiratory effort is even, unlabored, Respiratory pattern is regular, symmetrical. GI: Abdomen is non-distended, Abd is soft X 4 quads Reports lower abdominal pain. Derm: Skin is intact, is healthy with good turgor. Musculoskeletal: Range of motion: intact in all extremities. 19:24 Reassessment: Patient appears in no apparent distress at this time. Patient and/or bm8 family updated on plan of care and expected duration. Pain level reassessed. Patient is alert, oriented x 3, equal unlabored respirations, skin warm/dry/pink. General: Appears in no apparent distress. uncomfortable, Behavior is calm, cooperative, appropriate for age. Pain: Complains of pain in suprapubic area, left upper quadrant and left lower quadrant Pain currently is 7 out of 10 on a pain scale. Neuro: No deficits noted. Level of Consciousness is awake, alert, obeys commands, Oriented to person, place, time, situation, Appropriate for age Moves all extremities. Full function. Cardiovascular: Capillary refill < 3 seconds in bilateral fingers Patient's skin is warm and dry. Respiratory: Airway is patent Respiratory effort is even, unlabored, Respiratory pattern is regular, symmetrical. GI: Abdomen is round non-distended, Bowel sounds present X 4 quads. Abd is soft Abdomen is tender to palpation in suprapubic area, left upper quadrant and left lower quadrant Reports lower abdominal pain, upper abdominal pain, Pain is 7 out of 10 on a pain scale. : No signs and/or symptoms were reported regarding the genitourinary system. EENT: No signs and/or symptoms were reported regarding the EENT system. Derm: No signs and/or symptoms reported regarding the dermatologic system. Musculoskeletal: No signs and/or symptoms reported regarding the musculoskeletal system. 20:26 Reassessment: Patient appears in no apparent distress at this time. Patient and/or bm8 family updated on plan of care and expected duration. Pain level reassessed. Patient is alert, oriented x 3, equal unlabored respirations, skin warm/dry/pink. Patient states feeling better. Patient states symptoms have improved. 20:46 Reassessment: pt is awaiting admin of antibiotics before discharge. bm8 21:00 Reassessment: Patient appears in no apparent distress at this time. Patient and/or bm8 family updated on plan of care and expected duration. Pain level reassessed. Patient is alert, oriented x 3, equal unlabored respirations, skin warm/dry/pink. Patient denies pain at this time. Patient states feeling better. Patient states symptoms have improved. Vital Signs: 18:21 BP 150 / 96; Pulse 87; Resp 18; Temp 97.8; Pulse Ox 99% on R/A; Weight 101.2 kg; Height cm10 5 ft. 2 in. ; Pain 8/10; 19:24 BP 133 / 87; Pulse 72; Resp 17; Temp 97.8; Pulse Ox 100% ; Pain 7/10; bm8 20:26 BP 126 / 71; Pulse 62; Resp 17; Temp 97.8; Pulse Ox 100% ; Pain 0/10; bm8 21:00 BP 131 / 87; Pulse 62; Resp 17; Temp 97.8; Pulse Ox 100% ; Pain 0/10; bm8 21:36 BP 109 / 62; Pulse 62; Resp 17; Temp 97.8; Pulse Ox 100% ; Pain 2/10; bm8 18:21 Body Mass Index 40.81 (101.20 kg, 157.48 cm) cm10 18:21 Pain Scale: Adult cm10 19:24 Pain Scale: Adult bm8 20:26 Pain Scale: Adult bm8 21:00 Pain Scale: Adult bm8 21:36 Pain Scale: Adult bm8 [place] Coma Score: 19:24 Eye Response: spontaneous(4). Motor Response: obeys commands(6). Verbal Response: bm8 oriented(5). Total: 15. 20:26 Eye Response: spontaneous(4). Motor Response: obeys commands(6). Verbal Response: bm8 oriented(5). Total: 15. 21:00 Eye Response: spontaneous(4). Motor Response: obeys commands(6). Verbal Response: bm8 oriented(5). Total: 15. 21:36 Eye Response: spontaneous(4). Motor Response: obeys commands(6). Verbal Response: bm8 oriented(5). Total: 15. ED Course: 18:09 Patient arrived in ED. mr 18:12 Akosua Guido PA-C is PHCP. sb4 18:12 Seamus Kern MD is Attending Physician. sb4 18:23 Triage completed. cm10 18:24 Arm band placed on right wrist. Patient placed in an exam room, on a stretcher. cm10 19:00 No provider procedures requiring assistance completed. Inserted saline lock: 20 gauge bm8 in left antecubital area, using aseptic technique. Blood collected. Flushed with 10 mL NS. 19:00 Patient maintains SpO2 saturation greater than 95% on room air. bm8 19:24 Julio Giron, RN is Primary Nurse. bm8 19:37 CT Abd/Pelvis - IV Contrast Only In Process Unspecified. EDMS 20:26 Patient has correct armband on for positive identification. Bed in low position. Call bm8 light in reach. Side rails up X 1. Provided Education on: post er care. Client placed on continuous cardiac and pulse oximetry monitoring. NIBP monitoring applied. Pulse ox on. NIBP on. Door closed. Noise minimized. Warm blanket given. Pillow given. Verbal reassurance given. Head of bed lowered. 21:36 IV discontinued, intact, bleeding controlled, No redness/swelling at site. Pressure bm8 dressing applied. Administered Medications: 19:27 Drug: NS 0.9% IV 1000 ml IV at 1 bolus Per protocol; to be given as a bolus over 60 bm8 minutes Route: IV; Rate: 1 bolus; Site: left antecubital; 20:27 Follow up: Response: No adverse reaction; IV Status: Completed infusion; IV Intake: bm8 1000ml 19:27 Drug: fentaNYL (PF) IVP 50 mcg IVP once Route: IVP; Site: left antecubital; bm8 20:27 Follow up: Response: No adverse reaction bm8 19:27 Drug: Promethazine IVP 12.5 mg IVP once Route: IVP; Site: left antecubital; bm8 20:27 Follow up: Response: No adverse reaction bm8 20:07 Drug: Rocephin IV 1 grams IV at calculated rate once; Given slow IV push per pharmacy bm8 instructions Route: IV; Rate: calculated rate; Site: left antecubital; 20:27 Follow up: Response: No adverse reaction; IV Status: Completed infusion; IV Intake: [id number] 20:08 Drug: HYDROmorphone IVP 0.5 mg IVP once Route: IVP; Site: left antecubital; bm8 20:27 Follow up: Response: No adverse reaction bm8 20:08 CANCELLED (Duplicate Order): hydromorphone0.5 mg IVP once bm8 20:38 Drug: metroNIDAZOLE IVPB 500 mg 100 ml IVPB at 200 ml/hr once over 30 mins Volume: 100 bm8 ml; Route: IVPB; Rate: 200 ml/hr; Infused Over: 30 mins; Site: left antecubital; 21:36 Follow up: Response: No adverse reaction; IV Status: Completed infusion; IV Intake: bm8 100ml Medication: 18:37 VIS not applicable for this client. iw Intake: 20:27 IV: 10ml; Total: 10ml. bm8 20:27 IV: 1000ml; Total: 1010ml. bm8 21:36 IV: 100ml; Total: 1110ml. bm8 Outcome: 20:44 Discharge ordered by . sb4 21:36 Discharged to home ambulatory, bm8 21:36 Condition: stable 21:36 Discharge instructions given to patient, family, Instructed on discharge instructions, follow up and referral plans. no drinking with medication, no driving heavy equipment, medication usage, safety practices, Demonstrated understanding of instructions, follow-up care, medications, Prescriptions given X 3, 21:37 Patient left the ED. bm8 Signatures: Dispatcher [employer] EDTN Elisabet Chakraborty Reg Reg mr Marsha Philip, RN RN Akosua Georges, OLAF PADarius sb4 Joaquina Mai, RN RN cm10 Julio Giron RN RN bm8
--- NOTE | 2024-11-01 20:45 | EDPHYS ---
Physician Documentation [facility] Name: Vanessa Gonzalez Age: 49 yrs Sex: Female : 1975 Arrival Date: 11/01/2024 Time: 18:05 Bed 6 Private MD: ED Physician Seamus Kern HPI: 11/01 18:22 This 49 yrs old Female presents to ER via Unassigned with complaints of sb4 Abdominal Pain. 18:22 The patient presents with abdominal pain in the left upper quadrant, in the left lower sb4 quadrant. Onset: The symptoms/episode began/occurred 1 week(s) ago. Associated signs and symptoms: Pertinent positives: nausea. worsening left sided abd pain x 1 week. went to PCP last week, was told she was negative for UTI, pain has persisted. states the pain feels similar to her prior diverticulitis episodes, she may have ingested some strawberry seeds in a smoothie last week. denies any difficulty urinating or blood in her urine. last BM today. WHARF TENDER: 18:23 LMP N/A - Hysterectomy, Not cm10 Historical: - Allergies: 18:23 ANYTHING THAT PROLONGS QT; cm10 18:23 Benadryl; cm10 18:23 Ketorolac; cm10 18:23 Morphine; cm10 - PMHx: 18:23 Anxiety; Depression; GERD; High Cholesterol; Hypertension; Pacemaker; prolonged QT cm10 interval; Rheumatoid Arthritis; TIA; - PSHx: 18:23 padmini carpal tunnel; section; Cholecystectomy; Gastric Bypass; hysterectomy; cm10 Pacemaker/Defibrillator; - Immunization history:: Adult Immunizations up to date. - Infectious Disease History:: Denies. - Social history:: Smoking status: unknown. ROS: 18:22 Constitutional: Negative for fever, chills, and weight loss, sb4 18:22 Abdomen/GI: Positive for abdominal pain, nausea, 18:22 All other systems are negative, Exam: 18:22 Head/Face: Normocephalic, atraumatic. Eyes: Extra-ocular motions intact. Periorbital sb4 areas with no swelling, redness, or edema. ENT: Mucous membranes moist. Cardiovascular: Regular rate and rhythm with a normal S1 and S2. Respiratory: No increased work of breathing, no retractions or nasal flaring. Back: No spinal tenderness. No costovertebral tenderness. Full range of motion. Skin: Warm, dry with normal turgor. Normal color with no rashes, no lesions, and no evidence of cellulitis. 18:22 Constitutional: The patient appears alert, awake, in obvious pain, uncomfortable, 18:22 Abdomen/GI: Inspection: abdomen appears normal, Bowel sounds: normal, Palpation: soft, moderate abdominal tenderness, in the epigastric area, left upper quadrant and left lower quadrant, Vital Signs: 18:21 BP 150 / 96; Pulse 87; Resp 18; Temp 97.8; Pulse Ox 99% on R/A; Weight 101.2 kg; Height cm10 5 ft. 2 in. ; Pain 8/10; 19:24 BP 133 / 87; Pulse 72; Resp 17; Temp 97.8; Pulse Ox 100% ; Pain 7/10; bm8 20:26 BP 126 / 71; Pulse 62; Resp 17; Temp 97.8; Pulse Ox 100% ; Pain 0/10; bm8 21:00 BP 131 / 87; Pulse 62; Resp 17; Temp 97.8; Pulse Ox 100% ; Pain 0/10; bm8 21:36 BP 109 / 62; Pulse 62; Resp 17; Temp 97.8; Pulse Ox 100% ; Pain 2/10; bm8 18:21 Body Mass Index 40.81 (101.20 kg, 157.48 cm) cm10 18:21 Pain Scale: Adult cm10 19:24 Pain Scale: Adult bm8 20:26 Pain Scale: Adult bm8 21:00 Pain Scale: Adult bm8 21:36 Pain Scale: Adult bm8 [place] Coma Score: 19:24 Eye Response: spontaneous(4). Motor Response: obeys commands(6). Verbal Response: bm8 oriented(5). Total: 15. 20:26 Eye Response: spontaneous(4). Motor Response: obeys commands(6). Verbal Response: bm8 oriented(5). Total: 15. 21:00 Eye Response: spontaneous(4). Motor Response: obeys commands(6). Verbal Response: bm8 oriented(5). Total: 15. 21:36 Eye Response: spontaneous(4). Motor Response: obeys commands(6). Verbal Response: bm8 oriented(5). Total: 15. MDM: 18:13 Medical Screening Exam initiated sb4 19:56 Data reviewed: vital signs, nurses notes, lab test result(s), radiologic studies, and sb4 as a result, I will discharge patient. Care significantly affected by the following chronic conditions: Hypertension. Counseling: I had a detailed discussion with the patient and/or guardian regarding the historical points, exam findings, and any diagnostic results supporting the discharge/admit diagnosis, the presence of at least one elevated blood pressure reading (>120/80) during this emergency department visit, lab results, radiology results, the need for outpatient follow up, for definitive care, to return to the emergency department if symptoms worsen or persist or if there are any questions or concerns that arise at home. 11/01 18:21 Order name: CBC with Diff; Complete Time: 19:17 sb4 11/01 18:21 Order name: CMP; Complete Time: 19:19 sb4 11/01 18:21 Order name: Lipase; Complete Time: 19:19 sb4 11/01 18:21 Order name: Urinalysis w/ reflexes; Complete Time: 19:05 sb4 11/01 18:21 Order name: CT Abd/Pelvis - IV Contrast Only; Complete Time: 19:53 sb4 11/01 18:21 Order name: IV Saline Lock; Complete Time: 19:27 sb4 11/01 18:21 Order name: Labs collected and sent; Complete Time: 19:27 sb4 Administered Medications: 19:27 Drug: NS 0.9% IV 1000 ml IV at 1 bolus Per protocol; to be given as a bolus over 60 bm8 minutes Route: IV; Rate: 1 bolus; Site: left antecubital; 20:27 Follow up: Response: No adverse reaction; IV Status: Completed infusion; IV Intake: bm8 1000ml 19:27 Drug: fentaNYL (PF) IVP 50 mcg IVP once Route: IVP; Site: left antecubital; bm8 20:27 Follow up: Response: No adverse reaction bm8 19:27 Drug: Promethazine IVP 12.5 mg IVP once Route: IVP; Site: left antecubital; bm8 20:27 Follow up: Response: No adverse reaction bm8 20:07 Drug: Rocephin IV 1 grams IV at calculated rate once; Given slow IV push per pharmacy bm8 instructions Route: IV; Rate: calculated rate; Site: left antecubital; 20:27 Follow up: Response: No adverse reaction; IV Status: Completed infusion; IV Intake: [id number] 20:08 Drug: HYDROmorphone IVP 0.5 mg IVP once Route: IVP; Site: left antecubital; bm8 20:27 Follow up: Response: No adverse reaction bm8 20:08 CANCELLED (Duplicate Order): hydromorphone0.5 mg IVP once bm8 20:38 Drug: metroNIDAZOLE IVPB 500 mg 100 ml IVPB at 200 ml/hr once over 30 mins Volume: 100 bm8 ml; Route: IVPB; Rate: 200 ml/hr; Infused Over: 30 mins; Site: left antecubital; 21:36 Follow up: Response: No adverse reaction; IV Status: Completed infusion; IV Intake: bm8 100ml Disposition Summary: 11/01/24 20:44 Discharge Ordered Notes: Location: Home sb4 Problem: new sb4 Symptoms: have improved sb4 Condition: Stable sb4 Diagnosis - Diverticulitis of large intestine without perforation or abscess without bleeding sb4 Followup: sb4 - With: Emergency Department - When: As needed - Reason: Fever > 102 F, Worsening of condition Discharge Instructions: - Discharge Summary Sheet sb4 - Diverticulitis, [id number] sb4 Forms: - Antibiotic Education sb4 - Prescription Opioid Use sb4 - Patient Portal Instructions sb4 - Leadership Thank You Letter sb4 Prescriptions: - cefdinir 300 mg Oral capsule - take 1 capsule ORAL route 2 times per day for 7 days; 14 capsule; Refills: 0, sb4 Product Selection Permitted - Flagyl 500 mg Oral Tablet - take 1 tablet ORAL route every 12 hours for 7 days; 14 tablet; Refills: 0, sb4 Product Selection Permitted - Tramadol 50 mg Oral Tablet - take 1 tablet ORAL route every 8 hours as needed; 12 tablet; Refills: 0, sb4 Product Selection Permitted Addendum: 11/03/2024 17:40 I was immediately available for consultation during this patient's visit. I did not e c2 personally see the patient or discuss the patient with the RAYNE. . Signatures: Dispatcher [employer] Akosua Cedeno PA-C PA-C sb4 Joaquina Mai RN RN cm10 Seamus Kern MD MD ec2 Julio Giron RN RN bm8 Corrections: (The following items were deleted from the chart) 11/01 20:08 20:07 HYDROmorphone IVP 0.5 mg IVP once ordered. yamileth bm8
[2024-11-01 23:22] VITALS: TEMP 97.8
[2024-11-01 23:23] VITALS: O2SAT 100
[2024-11-01 23:28] VITALS: BP 109/62
== END 2024-11-01 21:37 | disposition home or self-care (01) ==
LOC: ER 18:05
DX: K57.32 Diverticulitis of large intestine without perforation or abscess without bleeding (principal); Z95.810 Presence of automatic (implantable) cardiac defibrillator
CPT/HCPCS: 96365; 96367; 96361; 85025; 81001; 36415; 83690; 80053; 74177; 96375; 99284; Q9967; J2550; J3010; J1171; J7030; J0696